=== PATIENT | female | born 1980 | race Caucasian/White ===

== ENCOUNTER 2023-01-02 11:03 | Outpatient (OUT) | payer BC, SELFPAY ==
[2023-01-02 11:38] LABS: Basophils Absolute Auto 0.1 10^3/uL (0.0-0.1); Basophils Percent Auto 1.2 % (0.2-2.0); Eosinophils Absolute Auto 0.3 10^3/uL (0.0-0.7); Eosinophils Percent Auto 4.9 % (0.9-7.0); Hematocrit 42.9 % (36.0-48.0); Hemoglobin 13.9 g/dL (12.0-16.0); Immature Granulocytes Abs Auto 0.04 10^3/uL (0.00-0.03); Immature Granulocytes Pct Auto 0.7 % (0.0-0.5); Lymphocytes Absolute Auto 1.8 10^3/uL (1.2-3.8); Lymphocytes Percent Auto 30.4 % (20.5-60.0); Mean Corpuscular HGB Conc 32.4 g/dL (29.9-35.2); Mean Corpuscular Hemoglobin 29.6 pg (26.7-34.0); Mean Corpuscular Volume 91.3 fL (81.0-99.0); Mean Platelet Volume 10.2 fL (9.5-13.5); Monocytes Absolute Auto 0.5 10^3/uL (0.3-0.8); Monocytes Percent Auto 8.7 % (1.7-12.0); Neutrophils Absolute Auto 3.2 10^3/uL (1.4-6.5); Neutrophils Percent Auto 54.1 % (43.0-75.0); Platelet Count 199 10^3/uL (150-450); Red Cell Distribution Width 13.8 % (11.0-15.0); White Blood Count 5.9 10^3/uL (4.0-11.0)
[2023-01-02 11:46] LABS: Erythrocyte Sedimentation Rate 14 mm/hr (<=20)
[2023-01-02 11:59] LABS: Estimated Average Glucose 100 mg/dL; Glycohemoglobin A1C 5.1 % (4.5-6.2)
[2023-01-02 12:08] LABS: Alanine Aminotransferase 23 U/L (14-59); Albumin Globulin Ratio 1.1; Albumin Level 3.8 g/dL (3.4-5.0); Alkaline Phosphatase 55 U/L (46-116); Amylase 234 U/L (25-115); Anion Gap 12.4; Aspartate Amino Transferase 9 U/L (15-37); Bilirubin Direct 0.1 mg/dL (0.0-0.2); Bilirubin Total 0.4 mg/dL (0.2-1.0); Carbon Dioxide 25.9 mmol/L (21.0-32.0); Chloride 107 mmol/L (98-107); Estimated GFR (African America >60 (>=60); Estimated GFR (Non-African Ame >60 (>=60); Globulin 3.5 g/dL; Potassium 4.3 mmol/L (3.5-5.1); Sodium 141 mmol/L (136-145); Thyroid Stimulating Hormone 1.609 uIU/mL (0.358-3.740); Total Protein 7.3 g/dL (6.4-8.2)
== END 2023-01-02 11:04 | disposition home or self-care (01) ==
PROVIDERS: PCP Internal Medicine
DX: Z79.899 Other long term (current) drug therapy (principal); R10.0 Acute abdomen
CPT/HCPCS: 36415; 80051; 80076; 82150; 82565; 83036; 84443; 84520; 85025; 85652

== ENCOUNTER 2023-01-27 13:46 | Outpatient (OUT) | payer BC, SELFPAY | END 2023-01-27 13:47 | disposition home or self-care (01) | LOC: PST 13:46 | PROVIDERS: PCP Internal Medicine; Visit Provider Surgery | DX: Z01.818 Encounter for other preprocedural examination (principal); K80.80 Other cholelithiasis without obstruction ==

== ENCOUNTER 2023-02-05 08:08 | Day surgery (SDC) | payer BC, SELFPAY ==
[2023-01-27 14:46] VITALS: BP 115/75; PULSE 73; RESP 20; TEMP 36.4; O2SAT 98; BMI 29.4
[2023-02-05] VITALS (15 sets, daily range): BP systolic 104–135; BP diastolic 62–83; PULSE 68–100; RESP 14–17; TEMP 36.2–36.8; O2SAT 96–100; BMI 29.4
[2023-02-05] MEDS: LACTATED RINGER'S SOLUTION 1,000 ML 50 ML IV ×2 (08:43→10:47)
[2023-02-05] MEDS: INDOCYANINE GREEN 25 MG VIAL INJ (08:43)
[2023-02-05] MEDS: MIDAZOLAM HCL 2 MG/2 ML VIAL IV (09:37)
[2023-02-05] MEDS: CEFAZOLIN SODIUM/DEXTROSE,ISO 2 GM/50 ML PIGGYBACK IV (09:59)
[2023-02-05] MEDS: BUPIVACAINE HCL 0.5% PF 50 MG/10 ML VIAL 20 ML INJ (10:48)
[2023-02-05] MEDS: PROMETHAZINE HCL 25 MG/ML VIAL 12.5 MG IV (11:27)
--- NOTE | 2023-02-05 11:30 | PM.GSPRC ---
Date of procedure: 02/05/23 Indications for Procedure: This patient is a 42-year-old female who was recently seen for episodes of right upper quadrant pain. Gallbladder ultrasound revealed cholelithiasis. Robotic cholecystectomy was recommended. The risks benefits options and potential complications of the procedure were discussed in detail with the patient and they agreed to proceed and consent was signed. Pre-op diagnosis: symptomatic cholelithiasis Post-op diagnosis: same as pre-op Procedure: robotic cholecystectomy with ICG cholangiogram Anesthesia: GETA Surgeon: William Juarez Procedure Summary: The patient was brought to the operating room placed in the supine position. Gen. anesthesia was induced and the patient was intubated. The abdomen was prepped and draped in usual sterile fashion. She had been given preoperative IV antibiotics and was also given preoperative ICG. A site in the left upper quadrant was infiltrated with half percent Marcaine with epinephrine. A small incision was made. A 12 mm port was placed through this incision and advanced into the peritoneal cavity under laparoscopic guidance. The abdomen was then insufflated to 15 mmHg of carbon dioxide. The camera was reintroduced and safe port site entry was confirmed. Three 8 mm robotic ports were then placed, one at the umbilicus and two in the right lateral abdomen following local anesthesia under direct visualization. The camera was removed and an additional 8 mm port was placed through the 12 mm port. the patient was then placed in reverse Trendelenburg position and banked to the left. At this time the da Conrad XI was brought to the field and camera was introduced and all ports direct and instruments introduced in standard fashion.at this time I left the operating table and attended the surgeon consult. The fundus of the gallbladder is grasped and retracted cephalad. The region of Brown's pouch was grasped and retracted laterally. Dissection was not carried out in the region of the triangle of Calot. The cystic duct was readily identified. This was confirmed with a sql programmer analyst. This was then divided between clips. Posterior to this the cystic artery was identified. This was divided after clip placement. The gallbladder was then taken off the liver using electrocautery. Excellent hemostasis and secured clip placement was noted. The gallbladder was then placed in a retrieval bag. This was brought out through the 12 mm port site intact. Instruments, camera and ports were subsequently removed and the abdomen was desufflated. Skin incisions were closed with subcuticular sutures of 4-0 Vicryl. Sterile dressings were applied. The patient tolerated the procedure well and was transferred to the recovery area in stable condition. Estimated blood loss (mL): 2 Specimens: gallbladder Complications: No
[2023-02-05] MEDS: HYDROMORPHONE HCL 0.5 MG/0.5 ML SYRINGE 0.4 MG IV ×2 (11:37→11:52)
[2023-02-05] MEDS: ONDANSETRON PF 4 MG/2 ML VIAL IV (11:52)
== END 2023-02-05 13:05 | disposition home or self-care (01) ==
PROVIDERS: PCP Internal Medicine; Visit Provider Surgery
PROC: (CPT 47563; principal; 2023-02-05 09:20)
DX: K80.20 Calculus of gallbladder without cholecystitis without obstruction (principal); Z79.899 Other long term (current) drug therapy; E78.00 Pure hypercholesterolemia, unspecified
CPT/HCPCS: 47563; 88304; J1170; J2704

== ENCOUNTER 2023-05-18 10:30 | Outpatient (OUT) | payer BC, SELFPAY ==
--- NOTE | 2023-05-18 11:17 | MM_ITS ---
Patient Name: GARRY GRIGSBY MR#: [id number] : 1980 Exam Date: 05/18/2023 Ordering Doctor: SUZANNA Nicholas . RADIOLOGY REPORT PROCEDURE: MM TOMOSYNTHESIS SCREENING BI COMPARISON: MG MAMM SCREEN 3D MATTEO CAD, 05/06/2022. MG MAMM SCREEN 3D [place] CAD, 05/01/2021. MG MAMM SCREEN MATTEO W CAD, 08/19/2018. INDICATIONS: screening Calculator Name NCI Breast Cancer Risk Assessment Tool 5 Year Breast Cancer Risk 1.30% Lifetime Breast Cancer Risk 12.90% Personal Breast Cancer No Personal Ovarian Cancer No Treatments None Family Cancers Grandmother-maternal with breast cancer at age ~60. LOCATION: [facility] BREAST COMPOSITION: Heterogeneously dense,which may obscure small masses. FINDINGS: DIAGNOSTIC CATEGORY 2--BENIGN FINDING: RIGHT BREAST: No significant suspicious finding. Scattered benign-appearing nodules are present. No significant change has occurred. LEFT BREAST: No significant suspicious finding. Scattered benign-appearing nodules are present. No significant change has occurred. RECOMMENDATIONS: ROUTINE MAMMOGRAM AND CLINICAL EVALUATION IN 12 MONTHS. PLEASE NOTE: A NORMAL MAMMOGRAM DOES NOT EXCLUDE THE POSSIBILITY OF BREAST CANCER. A CLINICALLY SUSPICIOUS PALPABLE LUMP SHOULD BE BIOPSIED. Dictated by: Abdiel Lin M.D. on 05/19/2023 at 13:11 Approved by: Abdiel Lin M.D. on 05/19/2023 at 13:26
== END 2023-05-18 10:31 | disposition home or self-care (01) ==
LOC: MAMMO 10:30
PROVIDERS: PCP Internal Medicine; Visit Provider Physician Assistant
DX: Z12.31 Encounter for screening mammogram for malignant neoplasm of breast (principal); Z80.3 Family history of malignant neoplasm of breast
CPT/HCPCS: 77063; 77067

== ENCOUNTER 2023-06-09 21:24 | Outpatient (REF) | payer BC, SELFPAY ==
--- OUTSIDE RECORDS SUMMARY | 2023-06-09 21:28 | XMS_ITS | CCD ---
Author Name Unknown Address [address] [place] [address] Organization [facility] Care Team Providers Care Tomato Paste Maker Name Role Phone MD Emmanuel Laughlin Attending Provider NO FAMILY, PHYSICIAN Primary Care Provider Unava ilable JR Monroe Whitaker Primary Care Provider [phone] OTILIA, DR NATARAJAN Attending Unavailable KARASIK, DR NATARAJAN Consulting Unavailable VALONE, DR JOHNSON Primary Care Unavailable KARASIK, DR NATARAJAN Admitting Unavailable KARASIK, DR NATARAJAN Admitting Unavailable KARASIK, DR NATARAJAN Attending Unavailable KARASIK, DR NATARAJAN Consulting Unavailable VALONE, DR JOHNSON Primary Care Unavailable ZIEBER, DR ABDIEL Reynoso Consulting Unavailable VALONE, DR JOHNSON Admitting Unavailable VALONE, DR JOHNSON Attending Unavailable VALONE, DR JOHNSON Consulting Unavailable VALONE, DR JOHNSON Primary Care Unavailable ANNE MARIE, NIKKI Admitting Unavailable ANNE MARIE, NIKKI Attending Unavailable VALONE, DR JOHNSON Primary Care Unavailable ZIEBER, DR ABDIEL Reynoso Consulting Unavailable ANNE MARIE, NIKKI Consulting Unavailable VALISAI, MONROE Referring Unavailable NILPercy, Bobby Reynoso Attending Unavailable Rolf, JR Monroe Greer Primary Care Provider [phone] MD Damir Laughlin Attending Provider Monroe Whitaker Primary Care Unavailable Damir Laughlin Attending Unavailable Qian, Damir Admitting Unavailable Allergies Allergy Classification Reported Allergen(s) Allergy Type Date of Onset Reaction(s) Facility (1 source) No Known Medication Allergies; Translations: [No Known Medication Allergies] Propensity to adverse reactions (disorder) [facility] Repository Problems Active Problems Problem Classification Problem Date Documented Date Episodic/Chronic Diabetes mellitus without complication (1 source) Other abnormal glucose; Translations: [OTHER ABNORMAL GLUCOSE] Onset: 2 Episodic Disorders of lipid metabolism (1 source) Pure hypercholesterolemia, unspecified; Translations: [PURE HYPERCHOLESTEROLEMIA UNSPEC] Onset: 2 Chronic Headache; including migraine (4 sources) Migraine, unspecified, not intractable, without status migrainosus; Translations: [MIGRAINE UNS NOT INTRACT W/O SM] Onset: 2 Chronic Immunizations and screening for infectious disease (1 source) Encounter for screening for human papillomavirus (HPV); Translations: [ENC SCREENING HUMAN PAPILLOMAVIRUS] Onset: 2 Episodic Osteoarthritis (1 source) Primary generalized (osteo)arthritis; Translations: [Primary generalized (osteo)arthritis] Onset: 3 Chronic Other aftercare (1 source) Other retirement (current) drug therapy; Translations: [OTH SKILLED NURSING CURRENT DRUG THERAPY] Onset: 2 Episodic Other connective tissue disease (1 source) Myalgia, unspecified site; Translations: [MYALGIA UNSPECIFIED SITE] Onset: 2 Episodic Other screening for suspected conditions (not mental disorders or infectious disease) (8 sources) Encounter for screening mammogram for malignant neoplasm of breast; Translations: [Encounter for screening for malignant neoplasm of cervix] Onset: 2 Episodic Residual codes; unclassified (1 source) Family history of malignant neoplasm of breast; Translations: [FAMILY HX MALIG NEOPLASM OF BREAST] Onset: 2 Episodic Past or Other Problems Problem Classification Problem Date Documented Da te Episodic/Chronic Other nervous system disorders (1 source) Personal history of other diseases of the nervous system and sense organs; Translations: [PERSONAL HX OTH DZ NS AND SENSE ORGANS] Onset: 12-10-2021 Episodic Results Test Name Value Interpretation Reference Range Facility Alanine aminotransferase [En zymatic activity/volume] in Serum or PlasmaOrdered By: Damir Laughlin on 01-18-2023 ALT [Catalytic activity/Vol] 24 U/L 7-52 [facility] Albumin [Mass/volume] in Ser um or Plasma by Bromocresol green (BCG) dye binding methoOrdered By: Damir Laughlin on 01-18-2023 Albumin BCG dye [Mass/Vol] 4.3 g/dL 3.5-5.7 [facility] Alkaline phosphatase [Enzyma tic activity/volume] in Serum or PlasmaOrdered By: Damir Laughlin on 01-18-2023 ALP [Catalytic activity/Vol] 40 U/L 34-104 [facility] Aspartate aminotransferase [ Enzymatic activity/volume] in Serum or PlasmaOrdered By: Damirclaudine Laughlin on 01-18-2023 AST [Catalytic activity/Vol] 18 U/L 13-39 [facility] Basophils Auto (Bld) [#/Vol] Ordered By: Damir Laughlin on 01-18-2023 Basophils (Bld) [#/Vol] 0.1 10*3/uL 0.0-0.2 [facility] Basophils/100 WBC Auto (Bld) Ordered By: Damir Laughlin on 01-18-2023 Basophils/100 WBC (Bld) 1.0 % . [facility] Bilirubin.total [Mass/volume ] in Serum or PlasmaOrdered By: Damir Laughlin on 01-18-2023 Bilirubin [Mass/Vol] 0.5 mg/dL 0.3-1.0 [facility] Calcium [Mass/volume] in Ser um or PlasmaOrdered By: Damir Laughlin on 01-18-2023 Calcium [Mass/Vol] 9.3 mg/dL 8.6-10.3 [facility] Carbon dioxide, total [Moles /volume] in Serum or PlasmaOrdered By: Damir Laughlin on 01-18-2023 CO2 [Moles/Vol] 29.7 mmol/L 21.0-31.0 [facility] Chloride [Moles/volume] in S derrick or PlasmaOrdered By: Damir Laughlin on 01-18-2023 Chloride [Moles/Vol] 108 mmol/L 98-107 [facility] Complete Blood Count Auto Di ffon 01-18-2023 Basophils (Bld) [#/Vol] 0.1 10*3/uL Normal 0.0-0.2 [facility] Comment on above: Result Comment: PERF ORMED BY: [facility] [address] [place] [address] PATHOLOGIST CARDIOLOGY CLINICAL NURSE SPECIALIST SP WALTERS M.D. Performed By: #### C MP, CBC #### [facility] [address] [place] [address] [place] Basophils/100 WBC (Bld) 1.0 % Normal . [facility] Comment on above: Performed By: #### C MP, CBC #### [facility] [address] [place] [address] [place] Eosinophils (Bld) [#/Vol] 0.6 10*3/uL High 0.0-0.45 [facility] Comment on above: Performed By: #### C MP, CBC #### [facility] [address] Eosinophils/100 WBC (Bld) 8.3 % Normal . [facility] Comment on above: Performed By: #### C MP, CBC #### [address] Erythrocyte distribution width (RBC) [Ratio] 14.5 % Normal 11.9-15.3 [facility] Comment on above: Performed By: #### C MP, CBC #### [address] Hematocrit (Bld) [Volume fraction] 44.6 % Normal 34.0-46.4 [facility] Comment on above: Performed By: #### C MP, CBC #### [address] Hemoglobin (Bld) [Mass/Vol] 14.7 g/dL Normal 11.8-15.4 [facility] Comment on above: Performed By: #### C MP, CBC #### [place] [address] [place] Lymphocytes (Bld) [#/Vol] 2.5 10*3/uL Normal 1.00-4.8 [facility] Comment on above: Performed By: #### C MP, CBC #### [place] [address] [place] Lymphocytes/100 WBC (Bld) 36.0 % Normal . [facility] Comment on above: Performed By: #### C MP, CBC #### [address] MCH (RBC) [Entitic mass] 30.2 pg Normal 24.7-34.3 [facility] Comment on above: Performed By: #### C MP, CBC #### [facility] [address] MCV (RBC) [Entitic vol] 91.9 fL Normal 80-100 [facility] Comment on above: Performed By: #### C MP, CBC #### [facility] [address] Mean Corpuscular HGB Conc 32.9 g/dL Normal 32.0-35.0 [facility] Comment on above: Performed By: #### C MP, CBC #### [facility] [address] Monocytes (Bld) [#/Vol] 0.6 10*3/uL Normal 0.0-0.8 [facility] Comment on above: Performed By: #### C MP, CBC #### [facility] [address] Monocytes/100 WBC (Bld) 9.0 % Normal . [facility] Comment on above: Performed By: #### C MP, CBC #### [facility] [address] [place] [address] [place] Neutrophils (Bld) [#/Vol] 3.1 10*3/uL Normal 1.8-7.7 [facility] Comment on above: Performed By: #### C MP, CBC #### [facility] [address] [place] [address] [place] Neutrophils/100 WBC (Bld) 45.7 % Normal . [facility] Comment on above: Performed By: #### C MP, CBC #### [facility] [address] [place] [address] [place] NRBC% 0.1 /100{WBC} Normal 0-0.5 [facility] Comment on above: Performed By: #### C MP, CBC #### [address] Platelet mean volume (Bld) [Entitic vol] 9.0 fL Normal 6.3-10.7 [facility] Comment on above: Performed By: #### C MP, CBC #### [address] Platelets (Bld) [#/Vol] 226 10*3/uL Normal 150-450 [facility] Comment on above: Performed By: #### C MP, CBC #### [address] RBC (Bld) [#/Vol] 4.86 10*6/uL Normal 3.60-5.00 [facility] Comment on above: Performed By: #### C MP, CBC #### [address] WBC (Bld) [#/Vol] 6.9 10*3/uL Normal 3.8-11.6 [facility] Comment on above: Performed By: #### C MP, CBC #### [address] Comprehensive Metabolic Pane yrn 01-18-2023 Albumin [Mass/Vol] 4.3 g/dL Normal 3.5-5.7 [facility] Comment on above: Performed By: #### C MP, CBC #### [address] Albumin/Globulin [Mass ratio] 1.8 {ratio} Normal [facility] Comment on above: Performed By: #### C MP, CBC #### [address] ALP [Catalytic activity/Vol] 40 U/L Normal 34-104 [facility] Comment on above: Result Comment: PERF ORMED BY: [place] [address] PATHOLOGIST CARDIOLOGY CLINICAL NURSE SPECIALIST SP WALTERS M.D. Performed By: #### C MP, CBC #### [address] ALT [Catalytic activity/Vol] 24 U/L Normal 7-52 [facility] Comment on above: Performed By: #### C MP, CBC #### [facility] [address] Anion gap [Moles/Vol] 9.7 mmol/L Normal 6.0-15.0 [facility] Comment on above: Performed By: #### C MP, CBC #### [facility] [address] AST [Catalytic activity/Vol] 18 U/L Normal 13-39 [facility] Comment on above: Performed By: #### C MP, CBC #### [facility] [address] Bilirubin [Mass/Vol] 0.5 mg/dL Normal 0.3-1.0 [facility] Comment on above: Performed By: #### C MP, CBC #### [facility] [address] Calcium [Mass/Vol] 9.3 mg/dL Normal 8.6-10.3 [facility] Comment on above: Performed By: #### C MP, CBC #### [facility] [address] [place] [address] [place] Chloride [Moles/Vol] 108 mmol/L High 98-107 [facility] Comment on above: Performed By: #### C MP, CBC #### [facility] [address] CO2 [Moles/Vol] 29.7 mmol/L Normal 21.0-31.0 [facility] Comment on above: Performed By: #### C MP, CBC #### [facility] [address] [place] [address] [place] Creatinine [Mass/Vol] 0.89 mg/dL Normal 0.60-1.20 [facility] Comment on above: Performed By: #### C MP, CBC #### [facility] [address] [place] [address] [place] GFR/1.73 sq M.predicted MDRD (S/P/Bld) [Vol rate/Area] mL/min/{1.73_m2} Normal [facility] Comment on above: Performed By: #### C MP, CBC #### [facility] [address] Globulin (S) [Mass/Vol] 2.4 g/dL Normal [facility] Comment on above: Performed By: #### C MP, CBC #### [address] Glucose [Mass/Vol] 85 mg/dL Normal 70-100 [facility] Comment on above: Result Comment: [facility] Glucose Reference Range is dependent on time and content of last meal. Glucose of more than 200 mg/dL in a nonstressed, ambulatory subject supports the diagnosis of Diabetes Mellitus. ADA recommended reference range Performed By: #### C MP, CBC #### [address] Potassium [Moles/Vol] 4.4 mmol/L Normal 3.5-5.1 [facility] Comment on above: Performed By: #### C MP, CBC #### [address] Protein [Mass/Vol] 6.7 g/dL Normal 6.4-8.9 [facility] Comment on above: Performed By: #### C MP, CBC #### [address] Sodium [Moles/Vol] 143 mmol/L Normal 136-145 [facility] Comment on above: Performed By: #### C MP, CBC #### [address] Urea nitrogen [Mass/Vol] 19 mg/dL Normal 7-25 [facility] Comment on above: Performed By: #### C MP, CBC #### [place] [address] [place] Creatinine [Mass/volume] in Serum or PlasmaOrdered By: Damir Laughlin on 01-18-2023 Creatinine [Mass/Vol] 0.89 mg/dL 0.60-1.20 [facility] Eosinophils Auto (Bld) [#/Vo l]Ordered By: Damir Laughlin on 01-18-2023 Eosinophils (Bld) [#/Vol] 0.6 10*3/uL 0.0-0.45 [facility] Eosinophils/100 WBC Auto (Bl d)Ordered By: Damir Laughlin on 01-18-2023 Eosinophils/100 WBC (Bld) 8.3 % . [facility] Erythrocyte distribution wid th Auto (RBC) [Ratio]Ordered By: Damir Laughlin on 01-18-2023 Erythrocyte distribution width (RBC) [Ratio] 14.5 % 11.9-15.3 [facility] Globulin Calc (S) [Mass/Vol] Ordered By: Damir Laughlin on 01-18-2023 Globulin (S) [Mass/Vol] 2.4 g/dL [facility] Glucose [Mass/volume] in Ser um or PlasmaOrdered By: Damir Laughlin on 01-18-2023 Glucose [Mass/Vol] 85 mg/dL 70-100 [facility] Comment on above: ADA recommended refe rence rangeRandom Glucose Reference Range is dependent on time and content of last meal. Glucose of more than 200 mg/dL in a nonstressed, ambulatory subject supports the diagnosis of Diabetes Mellitus. Hematocrit Auto (Bld) [Volum e fraction]Ordered By: Damir Laughlin on 01-18-2023 Hematocrit (Bld) [Volume fraction] 44.6 % 34.0-46.4 [facility] Hemoglobin [Mass/volume] in BloodOrdered By: Damir Laughlin on 01-18-2023 Hemoglobin (Bld) [Mass/Vol] 14.7 g/dL 11.8-15.4 [facility] Leukocytes [#/volume] correc nicki for nucleated erythrocytes in Blood by Automated counOrdered By: Damir Laughlin on 01-18-2023 WBC corrected for nucl RBC Auto (Bld) [#/Vol] 6.9 10*3/uL 3.8-11.6 [facility] Lymphocytes Auto (Bld) [#/Vo l]Ordered By: Damir Laughlin on 01-18-2023 Lymphocytes (Bld) [#/Vol] 2.5 10*3/uL 1.00-4.8 [facility] Lymphocytes/100 WBC Auto (Bl d)Ordered By: Damir Laughlin on 01-18-2023 Lymphocytes/100 WBC (Bld) 36.0 % . [facility] MCH Auto (RBC) [Entitic mass ]Ordered By: Damir Laughlin on 01-18-2023 MCH (RBC) [Entitic mass] 30.2 pg 24.7-34.3 [facility] MCHC Auto (RBC) [Mass/Vol]Or dered By: Damir Laughlin on 01-18-2023 MCHC (RBC) [Mass/Vol] 32.9 g/dL 32.0-35.0 [facility] MCV Auto (RBC) [Entitic vol] Ordered By: Damir Laughlin on 01-18-2023 MCV (RBC) [Entitic vol] 91.9 fL 80-100 [facility] Monocytes Auto (Bld) [#/Vol] Ordered By: Damir Laughlin on 01-18-2023 Monocytes (Bld) [#/Vol] 0.6 10*3/uL 0.0-0.8 [facility] Monocytes/100 WBC Auto (Bld) Ordered By: Damir Laughlin on 01-18-2023 Monocytes/100 WBC (Bld) 9.0 % . [facility] Neutrophils Auto (Bld) [#/Vo l]Ordered By: Damir Laughlin on 01-18-2023 Neutrophils (Bld) [#/Vol] 3.1 10*3/uL 1.8-7.7 [facility] Neutrophils/100 WBC Auto (Bl d)Ordered By: Damir Laughlin on 01-18-2023 Neutrophils/100 WBC (Bld) 45.7 % . [facility] No Panel InformationOrdered By: Damir Laughlin on 01-18-2023 Estimated GFR (CKD-EPI) > 60.0 mL/Min [facility] Creatinine Clearance (Chem N/A [facility] Nucleated erythrocytes [Pres ence] in Blood by Automated countOrdered By: Damir Laughlin on 01-18-2023 Nucleated RBC Auto Ql (Bld) 0.1 /100{WBC} 0-0.5 [facility] Platelet mean volume Auto (B ld) [Entitic vol]Ordered By: Damir Laughlin on 01-18-2023 Platelet mean volume (Bld) [Entitic vol] 9.0 fL 6.3-10.7 [facility] Platelets Auto (Bld) [#/Vol] Ordered By: Damir Laughlin on 01-18-2023 Platelets (Bld) [#/Vol] 226 10*3/uL 150-450 [facility] Potassium [Moles/volume] in Serum or PlasmaOrdered By: Damir Laughlin on 01-18-2023 Potassium [Moles/Vol] 4.4 mmol/L 3.5-5.1 [facility] Protein [Mass/volume] in Ser um or PlasmaOrdered By: Damir Laughlin on 01-18-2023 Protein [Mass/Vol] 6.7 g/dL 6.4-8.9 [facility] RBC Auto (Bld) [#/Vol]Ordere d By: Damir Laughlin on 01-18-2023 RBC (Bld) [#/Vol] 4.86 10*6/uL 3.60-5.00 [facility] Serum or plasma albumin/glob ulin mass ratioOrdered By: Damir Laughlin on 01-18-2023 Albumin/Globulin [Mass ratio] 1.8 {ratio} [facility] Serum or plasma anion gap de terminationOrdered By: Damir Laughlin on 01-18-2023 Anion gap [Moles/Vol] 9.7 mmol/L 6.0-15.0 [facility] Sodium [Moles/volume] in Ser um or PlasmaOrdered By: Damir Laughlin on 01-18-2023 Sodium [Moles/Vol] 143 mmol/L 136-145 [facility] Urea nitrogen [Mass/volume] in Serum or PlasmaOrdered By: Damir Laughlin on 01-18-2023 Urea nitrogen [Mass/Vol] 19 mg/dL 7-25 [facility] WBC Auto (Bld) [#/Vol]Ordere d By: Damir Laughlin on 01-18-2023 WBC (Bld) [#/Vol] 6.9 10*3/uL 3.8-11.6 [facility] Physician Referralon 023 Physician Referral [id number] #[id number]:127 Normal [facility] Physician Referralon 023 Physician Referral [id number] #1.00CD:127 Normal [facility] PAP ACOG PANEL 2: 30 to 65on 05-08-2022 . . Normal [facility] Comment on above: Result Comment: Perf ormed at: WB Performed By: #### [id number] ####[facility] [id number] [place] [address] [id number]. Tahir Barragan Age Gdln ACOG Testing 30-[address] [facility] Comment on above: Performed By: #### [id number] ####[facility] [address] [place] [address] [address]Dr. Tahir Barragan DIAGNOSIS: Comment Normal [facility] Comment on above: Result Comment: UNSA TISFACTORY FOR EVALUATION. Performed at: WB Performed By: #### [id number] ####[facility] [id number] [place] [address] [address]Dr. Tahir Barragan HPV Aptima Negative Normal Negative [facility] Comment on above: Result Comment: This nucleic acid amplification test detects fourteen high-risk HPV types (16,18,31,33,35,39,45,51,52,56,58,59,66,68) without differentiation. Performed at: =G Performed By: #### [id number] ####[facility] [address] [place] [address]DrWilber Barragan HPV Genotype Reflex Comment Normal [facility] Comment on above: Result Comment: Crit eria not met, HPV Genotype not performed. Performed at: WB Performed By: #### [id number] ####[facility] [address] [place] [address]DrWilber Barragan Methodology: Comment Normal [facility] Comment on above: Result Comment: This liquid based ThinPrep(R) pap test was screened with the use of an image guided system. Performed at: WB Performed By: #### [id number] ####[facility] [id number] [place] [address] [address]Dr. Tahir Barragan Note: Comment Normal [facility] Comment on above: Result Comment: The Pap smear is a screening test designed to aid in the detection of premalignant and malignant conditions of the uterine cervix. It is not a diagnostic procedure and should not be used as the sole means of detecting cervical cancer. Both false-positive and false-negative reports do occur. . Performed at: WB Performed By: #### [id number] ####[facility] [address] [place] [address]Dr. Tahir Barragan Performed by: Comment Normal [facility] Comment on above: Result Comment: Fercho Gonzalez, Brand Manager (ASCP) Performed at: WB Performed By: #### [id number] ####[facility] [address] [place], [place] [address]Dr. Tahir Barragan QC reviewed by: Comment Normal [facility] Comment on above: Result Comment: Jesenia Gómez, Supervisory Brand Manager (ASCP) Performed at: WB Performed By: #### [id number] ####[facility] [address] [place], [place] [address]Dr. Tahir Barragan Recommendation: Comment Normal [facility] Comment on above: Result Comment: Sugg est follow up as clinically appropriate. Performed at: WB Performed By: #### [id number] ####[facility] [address] [place], [place] [address]Dr. Tahir Barragan Specimen adequacy: Comment Normal [facility] Comment on above: Result Comment: Spec imen processed and examined but unsatisfactory for evaluation of epithelial abnormality because of insufficient cellularity. Performed at: WB Performed By: #### [id number] ####[facility] [address] [place], [place] [address]Dr. Tahir Barragan MG MAMM SCREEN 3D MATTEO CADon 05-06-2022 MG MAMM SCREEN 3D MATTEO CAD Patient: SHAWNA GRIGSBY Exam Date: 05/06/2022 : 1980 Gender:F Ordering : DR DELGADO BINGHAM . Admission #: [id number] Family : Order #: [id number] CLICK HERE TO VIEW EXAM RADIOLOGY REPORT PROCEDURE: MAMMOGRAM SCREENING 3D BILATERAL CAD COMPARISON: MG MAMM SCREEN 3D MATTEO CAD, 05/01/2021. MG MAMM MATTEO DIAG W CAD, 03/04/2020. INDICATIONS: Screening mammography Calculator Name NCI Breast Cancer Risk Assessment Tool 5 Year Breast Cancer Risk 1.30% Lifetime Breast Cancer Risk 13.00% Personal Breast Cancer No Personal Ovarian Cancer No Treatments None Family Cancers Grandmother-maternal with breast cancer at age 60. LOCATION: [facility] BREAST COMPOSITION: Heterogeneously dense,which may obscure small masses. FINDINGS: DIAGNOSTIC CATEGORY 2--BENIGN FINDING: RIGHT BREAST: No significant suspicious finding. Scattered benign-appearing nodules are present. No significant change has occurred. LEFT BREAST: No significant suspicious finding. Scattered benign-appearing nodules are present. No significant change has occurred. RECOMMENDATIONS: ROUTINE MAMMOGRAM AND CLINICAL EVALUATION IN 12 MONTHS. PLEASE NOTE: A NORMAL MAMMOGRAM DOES NOT EXCLUDE THE POSSIBILITY OF BREAST CANCER. A CLINICALLY SUSPICIOUS PALPABLE LUMP SHOULD BE BIOPSIED. Dictated by: Abdiel Lin M.D. on 05/06/2022 at 14:57 Approved by: Abdiel Lin M.D. on 05/06/2022 at 15:03 Normal [facility] BUNon 04-03-2022 Urea nitrogen [Mass/Vol] 17.0 mg/dL Normal 7.0-18.[address] [facility] Comment on above: Performed By: #### C LINDA, LIPID, BUN, TSH, ELEC, LIVER #### [facility] [address] [address] [address] Tahir Barragan CBC AUTO DIFFon 04-03-2022 BASO # 0.1 103/ul Normal 0.0-0.[address] [facility] Comment on above: Performed By: #### C BC #### [facility] [address] [address] [address] Tahir Barragan Basophils/100 WBC (Bld) 1.2 % Normal 0.2-2.0 [facility] Comment on above: Performed By: #### C BC #### [facility] [address] [address] [address] Tahir Barragan EO # 0.3 103/ul Normal 0.0-0.[address] [facility] Comment on above: Performed By: #### C BC #### [facility] [address] [place] [address] Dr. Tahir Barragan Eosinophils/100 WBC (Bld) 4.8 % Normal 0.9-7.[address] [facility] Comment on above: Performed By: #### C BC #### [facility] [address] [place] [address] Dr. Tahir Barragan Erythrocyte distribution width (RBC) [Ratio] 14.0 % Normal 11.0-15.[address] [facility] Comment on above: Performed By: #### C BC #### [facility] [address] [place] [address] Dr. Tahir Barragan Hematocrit (Bld) [Volume fraction] 41.5 % Normal 36.0-48.[address] [facility] Comment on above: Performed By: #### C BC #### [facility] [address] [place] [address] Dr. Tahir Braragan Hemoglobin (Bld) [Mass/Vol] 13.8 g/dL Normal 12.0-16.[address] [facility] Comment on above: Performed By: #### C BC #### [facility] [address] [place] [address] Dr. Tahir Barragan IG # 0.04 10e3/ul Critically high 0.00-0.03 [facility] Comment on above: Performed By: #### C BC #### [facility] [address] [place] [address] Dr. Tahir Barragan IG % 0.7 % Critically high 0.0-0.5 [facility] Comment on above: Performed By: #### C BC #### [facility] [address] [place] [address] Dr. Tahir Barragan LYMPH # 2.1 103/ul Normal 1.2-3.[address] [facility] Comment on above: Performed By: #### C BC #### [facility] [address] [place] [address] Dr. Tahir Barragan Lymphocytes/100 WBC (Bld) 34.1 % Normal 20.5-60.[address] [facility] Comment on above: Performed By: #### C BC #### [facility] [address] [place] [address] Dr. Tahir Barragan MANUAL DIFF REQ NO Normal [facility] Comment on above: Performed By: #### C BC #### [facility] [address] [place] [address] Dr. Tahir Barragan MCH (RBC) [Entitic mass] 29.9 pg Normal 26.7-34.[address] [facility] Comment on above: Performed By: #### C BC #### [facility] [address] [place] [address] Dr. Tahir Barragan MCHC (RBC) [Mass/Vol] 33.3 g/dL Normal 29.9-35.[address] [facility] Comment on above: Performed By: #### C BC #### [facility] [address] [place] [address] Dr. Tahir Barragan MCV (RBC) [Entitic vol] 90.0 fL Normal 81.0-99.0 [facility] Comment on above: Performed By: #### C BC #### [facility] [address] [place] [address] Dr. Tahir Barragan MONO # 0.6 103/ul Normal 0.3-0.[address] [facility] Comment on above: Performed By: #### C BC #### [facility] [address] [place] [address] Dr. Tahir Barragan Monocytes/100 WBC (Bld) 9.4 % Normal 1.7-12.0 [facility] Comment on above: Performed By: #### C BC #### [facility] [address] [place] [address] Dr. Tahir Barragan NEUT # 3.0 103/ul Normal 1.4-6.[address] [facility] Comment on above: Performed By: #### C BC #### [facility] [address] [place] [address] Dr. Tahir Barragan Neutrophils/100 WBC (Bld) 49.8 % Normal 43.0-75.[address] [facility] Comment on above: Performed By: #### C BC #### [facility] [address] [address] [address] aThir Barragan Platelet mean volume (Bld) [Entitic vol] 10.6 fL Normal 9.5-13.[address] [facility] Comment on above: Performed By: #### C BC #### [facility] [address] [address] [address] Tahir Barragan PLT 251 103/ul Normal 150-450 [facility] Comment on above: Performed By: #### C BC #### [facility] [address] [address] [address] Tahir Barragan RBC 4.61 106/ul Normal 4.20-5.[address] [facility] Comment on above: Performed By: #### C BC #### [facility] [address] [address] [address] Taihr Barragan WBC 6.0 103/ul Normal 4.0-11.[address] [facility] Comment on above: Performed By: #### C BC #### [facility] [address] [address] [address] Tahir Barragan CREATININEon 04-03-2022 Creatinine [Mass/Vol] 0.68 mg/dL Normal 0.55-1.[address] [facility] Comment on above: Performed By: #### C LINDA, LIPID, BUN, TSH, ELEC, LIVER ####[facility] [id number] [address]DrWilber Barragan EGFR-AF SWEDISH >60 Normal >=60 [facility] Comment on above: Performed By: #### C LINDA, LIPID, BUN, TSH, ELEC, LIVER ####[facility] [id number] [id number] Barragan EGFR-NON AF SWEDISH >60 Normal >=[address] [facility] Comment on above: Performed By: #### C LINDA, LIPID, BUN, TSH, ELEC, LIVER ####[facility] [id number] [address]Dr. Tahir Barragan ELECTROLYTESon 04-03-2022 Anion gap [Moles/Vol] 9.2 mmol/L Normal [facility] Comment on above: Performed By: #### C LINDA, LIPID, BUN, TSH, ELEC, LIVER #### [facility] [address] [address] [address] Tahir Barragan Chloride [Moles/Vol] 105 mmol/L Normal 98-107 [facility] Comment on above: Performed By: #### C LINDA, LIPID, BUN, TSH, ELEC, LIVER #### [facility] [address] [place] [address] Dr. Tahir Barragan CO2 [Moles/Vol] 29.7 mmol/L Normal 21.0-32.0 [facility] Comment on above: Performed By: #### C LINDA, LIPID, BUN, TSH, ELEC, LIVER #### [facility] [address] [place] [address] Dr. Tahir Barragan Potassium [Moles/Vol] 3.9 mmol/L Normal 3.5-5.1 [facility] Comment on above: Performed By: #### C LINDA, LIPID, BUN, TSH, ELEC, LIVER #### [facility] [address] [address] [address] Tahir Barragan Sodium [Moles/Vol] 140 mmol/L Normal 136-145 [facility] Comment on above: Performed By: #### C LINDA, LIPID, BUN, TSH, ELEC, LIVER #### [facility] [address] [place] [address] Dr. Tahir Barragan GLYCOHEMOGLOBIN A1Con 2021 ADA RECOMMENDATION SEE BELOW Normal [facility] Comment on above: Result Comment: ADA RECOMMENDED LIMIT 4.0 - 6.0 ADA THERAPEUTIC TARGET < 7.0 ACTION SUGGESTED > 7.0 Performed By: #### A 1C #### [facility] [address] [place] [address] Dr. Tahir Barragan Glucose [Mass/Vol] 108 mg/dL Normal [facility] Comment on above: Performed By: #### A 1C #### [facility] [address] [place] [address] Dr. Tahir Barragan HbA1c (Bld) [Mass fraction] 5.4 % Normal 4.5-6.[address] [facility] Comment on above: Performed By: #### A 1C #### [facility] [address] [place] [address] Dr. Tahir Barragan LIPID PROFILEon 04-03-2022 CHOL-HDL RATIO NORM SEE BELOW Normal [facility] Comment on above: Result Comment: 3.3 - 4.4 LOW RISK 4.4 - 7.1 AVERAGE RISK 7.1 - 11.0 MODERATE RISK >11.0 HIGH RISK Performed By: #### C LINDA, LIPID, BUN, TSH, ELEC, LIVER #### [facility] [address] [place] [address] Dr. Tahir Barragan Cholesterol [Mass/Vol] 177 mg/dL Normal <=200 [facility] Comment on above: Performed By: #### C LINDA, LIPID, BUN, TSH, ELEC, LIVER #### [facility] [address] [place] [address] Dr. Tahir Barragan Cholesterol in HDL [Mass/Vol] 69 mg/dL Critically high 40-[address] [facility] Comment on above: Performed By: #### C LINDA, LIPID, BUN, TSH, ELEC, LIVER #### [facility] [address] [place] [address] Dr. Tahir Barragan Cholesterol in LDL [Mass/Vol] 100.0 mg/dL Normal [facility] Comment on above: Performed By: #### C LINDA, LIPID, BUN, TSH, ELEC, LIVER #### [facility] [address] [place] [address] Dr. Tahir Barragan Cholesterol.total/Choles terol in HDL [Mass ratio] 2.6 {ratio} Normal [facility] Comment on above: Performed By: #### C LINDA, LIPID, BUN, TSH, ELEC, LIVER #### [facility] [address] [place] [address] Dr. Tahir Barragan HDL NORMAL > or = 60 mg/dl - LOW CARDIOVASCULAR RISK <40 mg/dl - HIGH CARDIOVASCULAR RISK Normal [facility] Comment on above: Performed By: #### C LINDA, LIPID, BUN, TSH, ELEC, LIVER #### [facility] [address] [address] [address] Tahir Barragan LDL CALC NORMAL SEE BELOW Normal [facility] Comment on above: Result Comment: <100 mg/dl OPTIMAL 100 - 129 mg/dl NEAR OR ABOVE OPTIMAL 130 - 159 mg/dl BORDERLINE HIGH 160 - 189 mg/dl HIGH >190 mg/dl VERY HIGH Performed By: #### C LINDA, LIPID, BUN, TSH, ELEC, LIVER #### [facility] [address] [address] [address] Tahir Barragan Triglyceride [Mass/Vol] 40 mg/dL Normal <=150 T [facility] Comment on above: Performed By: #### C LINDA, LIPID, BUN, TSH, ELEC, LIVER #### [facility] [address] [address] [address] Tahir Barragan VLDL CALC 8.0 mg/dL Normal [facility] Comment on above: Performed By: #### C LINDA, LIPID, BUN, TSH, ELEC, LIVER #### [facility] [address] [address] [address] Tahir Barragan LIVER PROFILEon 04-03-2022 Albumin [Mass/Vol] 3.9 g/dL Normal 3.4-5.0 [facility] Comment on above: Performed By: #### C LINDA, LIPID, BUN, TSH, ELEC, LIVER #### [facility] [address] [address] [address] Tahir Barragan Albumin/Globulin [Mass ratio] 1.1 {ratio} Normal [facility] Comment on above: Performed By: #### C LINDA, LIPID, BUN, TSH, ELEC, LIVER #### [facility] [address] [address] [address] Tahir Barragan ALP [Catalytic activity/Vol] 78 U/L Normal 46-[address] [facility] Comment on above: Performed By: #### C LINDA, LIPID, BUN, TSH, ELEC, LIVER #### [facility] [address] [address] [address] Tahir Barragan ALT [Catalytic activity/Vol] 16 U/L Normal 14-[address] [facility] Comment on above: Performed By: #### C LINDA, LIPID, BUN, TSH, ELEC, LIVER #### [facility] [address] [address] [address] Tahir Barragan AST [Catalytic activity/Vol] 9 U/L Critically low 15-[address] [facility] Comment on above: Performed By: #### C LINDA, LIPID, BUN, TSH, ELEC, LIVER #### [facility] [address] [address] [address] Tahir Barragan BILI, CONJUGATED 0.1 mg/dL Normal 0.0-0.2 [facility] Comment on above: Performed By: #### C LINDA, LIPID, BUN, TSH, ELEC, LIVER #### [facility] [address] [place] [address] Dr. Tahir Barragan Bilirubin [Mass/Vol] 0.4 mg/dL Normal 0.2-1.[address] [facility] Comment on above: Performed By: #### C LINDA, LIPID, BUN, TSH, ELEC, LIVER #### [facility] [address] [place] [address] Dr. Tahir Barragan Globulin (S) [Mass/Vol] 3.5 g/dL Normal T [facility] Comment on above: Performed By: #### C LINDA, LIPID, BUN, TSH, ELEC, LIVER #### [facility] [address] [place] [address] Dr. Tahir Barragan Protein [Mass/Vol] 7.4 g/dL Normal 6.4-8.2 [facility] Comment on above: Performed By: #### C LINDA, LIPID, BUN, TSH, ELEC, LIVER #### [facility] [address] [address] [address] Tahir Barragan SED RATE [facility] 2021 SED RATE 24 mm/hr Critically high <=20 [facility] Comment on above: Performed By: #### S EDR #### [facility] [address] [place] [address] Dr. Tahir Barragan TSHon 04-03-2022 TSH 0.848 uIU/mL Normal 0.358-3.740 [facility] Comment on above: Performed By: #### C LINDA, LIPID, BUN, TSH, ELEC, LIVER #### [facility] [address] [address] [address] Tahir Barragan Activated partial thrombopla stin time (aPTT) in platelet poor plasma by coagulation aOrdered By: Damir Laughlin on 10-08-2021 aPTT Coag (PPP) [Time] 30.3 s 25.1-36.5 [facility] Automated epithelial cells c ount in urine sediment (number/area)Ordered By: Damir Laughlin on 10-08-2021 Epithelial cells Auto (Urine sed) [#/Area] None seen [HPF] [facility] Automated erythrocytes count in urine sediment (number/area)Ordered By: Damir Laughlin on 10-08-2021 RBC Auto (Urine sed) [#/Area] None seen [HPF] [facility] Automated leukocytes count i n urine sediment (number/area)Ordered By: Damir Laughlin on 10-08-2021 WBC Auto (Urine sed) [#/Area] None seen [HPF] [facility] Automated urine hyaline cast s count (number/volume)Ordered By: Damir Laughlin on 10-08-2021 Hyaline casts Auto (U) [#/Vol] None seen [LPF] [facility] Basophils Auto (Bld) [#/Vol] Ordered By: Damir Laughlin on 10-08-2021 Basophils (Bld) [#/Vol] 0.1 10*3/uL 0.0-0.2 [facility] Basophils/100 WBC Auto (Bld) Ordered By: Damir Laughlin on 10-08-2021 Basophils/100 WBC (Bld) 1.0 % [facility] Bilirubin Test strip Ql (U)O rdered By: Damir Laughlin on 10-08-2021 Bilirubin Ql (U) Negative Negative [facility] Blood hemoglobin measurement (mass/volume)Ordered By: Damir Laughlin on 10-08-2021 Hemoglobin (Bld) [Mass/Vol] 12.9 g/dL 11.8-15.4 [facility] Blood leukocytes automated c ount (number/volume)Ordered By: Damir Laughlin on 10-08-2021 WBC (Bld) [#/Vol] 7.1 10*3/uL 4.5-11.0 [facility] Body fluid albumin measureme nt (mass/volume)Ordered By: Monroe Whitaker on 10-08-2021 Albumin (Body fld) [Mass/Vol] 4.1 g/dL 3.2-5.5 [facility] Color Auto (U)Ordered By: Bebeto Laughlin on 10-08-2021 Color (U) Yellow Yellow [facility] Creatine kinase [Enzymatic a ctivity/volume] in Serum or PlasmaOrdered By: Monroe Whitaker on 10-08-2021 CK [Catalytic activity/Vol] 123 U/L 22-269 [facility] Creatinine and Glomerular fi ltration rate.predicted panel (S/P/Bld)Ordered By: Monroe Whitaker on 10-08-2021 Creatinine [Mass/Vol] 0.78 mg/dL 0.44-1.03 [facility] Eosinophils Auto (Bld) [#/Vo l]Ordered By: Damir Laughlin on 10-08-2021 Eosinophils (Bld) [#/Vol] 0.4 10*3/uL 0.0-0.45 [facility] Eosinophils/100 WBC Auto (Bl d)Ordered By: Damir Laughlin on 10-08-2021 Eosinophils/100 WBC (Bld) 5.1 % [facility] Erythrocyte distribution wid th Auto (RBC) [Ratio]Ordered By: Damir Laughlin on 10-08-2021 Erythrocyte distribution width (RBC) [Ratio] 15.0 % 11.9-15.3 [facility] Erythrocyte sedimentation ra te by Photometric methodOrdered By: Damir Laughlin on 10-08-2021 ESR Photometric method (Bld) [Velocity] 15 mm/hr 0-19 [facility] Estimated glomerular filtrat ion rate (GFR) non- AmericanOrdered By: Monroe Whitaker on 10-08-2021 GFR/1.73 sq M.predicted among non-blacks MDRD (S/P/Bld) [Vol rate/Area] > 60 mL/Min [facility] Globulin Calc (S) [Mass/Vol] Ordered By: Monroe Whitaker on 10-08-2021 Globulin (S) [Mass/Vol] 2.2 g/dL [facility] Glucose mean value [Mass/vol ume] in Blood Estimated from glycated hemoglobinOrdered By: Monroe Whitaker on 10-08-2021 Average glucose Estimated from glycated hemoglobin (Bld) [Mass/Vol] 108 mg/dL [facility] Hematocrit Auto (Bld) [Volum e fraction]Ordered By: Damir Laughlin on 10-08-2021 Hematocrit (Bld) [Volume fraction] 38.6 % 34.0-46.4 [facility] Hemoglobin A1c percentageOrd ered By: Monroe Whitaker on 10-08-2021 HbA1c (Bld) [Mass fraction] 5.4 % 4.3-5.6 [facility] Comment on above: Increased risk for d iabetes: 5.7 - 6.4 diabetes: >6.4 glycemic control for adults with diabetes: <7.0 Ketones Auto test strip (U) [Mass/Vol]Ordered By: Damir Laughlin on 10-08-2021 Ketones (U) [Mass/Vol] Negative Negative Fi [facility] - CoagulationOrde red By: Damir Laughlin on 10-08-2021 PT Coag (PPP) [Time] 11.7 s 9.0-12.9 [facility] - Hematology and Cell countsOrdered By: Damir Laughlin on 10-08-2021 Nucleated RBC/100 WBC (Bld) [Ratio] 0.0 % 0-0.5 [facility] Lymphocytes Auto (Bld) [#/Vo l]Ordered By: Damir Laughlin on 10-08-2021 Lymphocytes (Bld) [#/Vol] 2.2 10*3/uL 1.00-4.8 [facility] Lymphocytes/100 WBC Auto (Bl d)Ordered By: Damir Laughlin on 10-08-2021 Lymphocytes/100 WBC (Bld) 31.5 % [facility] MCH Auto (RBC) [Entitic mass ]Ordered By: Damir Laughlin on 10-08-2021 MCH (RBC) [Entitic mass] 30.2 pg 24.7-34.3 [facility] MCHC Auto (RBC) [Mass/Vol]Or dered By: Damir Laughlin on 10-08-2021 MCHC (RBC) [Mass/Vol] 33.3 g/dL 32.0-35.0 [facility] MCV Auto (RBC) [Entitic vol] Ordered By: Damir Laughlin on 10-08-2021 MCV (RBC) [Entitic vol] 90.7 fL 80-100 [facility] Monocytes Auto (Bld) [#/Vol] Ordered By: Damir Laughlin on 10-08-2021 Monocytes (Bld) [#/Vol] 0.5 10*3/uL 0.0-0.8 [facility] Monocytes/100 WBC Auto (Bld) Ordered By: Damir Laughlin on 10-08-2021 Monocytes/100 WBC (Bld) 7.5 % [facility] Neutrophils Auto (Bld) [#/Vo l]Ordered By: Damir Laughlin on 10-08-2021 Neutrophils (Bld) [#/Vol] 3.9 10*3/uL 1.8-7.7 [facility] Neutrophils/100 WBC Auto (Bl d)Ordered By: Damir Laughlin on 10-08-2021 Neutrophils/100 WBC (Bld) 54.9 % [facility] Nitrite Test strip Ql (U)Ord ered By: Damir Laughlin on 10-08-2021 Nitrite Ql (U) Negative Negative [facility] No Panel InformationOrdered By: Monroe Whitaker on 10-08-2021 Estimated GFR () > 60 mL/Min [facility] Comment on above: GFR estimated refere nce range: According to KDOQI guidelines, <60 ml/min/1.73m2 is sufficient to diagnose a patient with chronic kidney disease. Pharmacy Creatinine Clearance (Chem N/A [facility] Platelet mean volume Auto (B ld) [Entitic vol]Ordered By: Damir Laughlin on 10-08-2021 Platelet mean volume (Bld) [Entitic vol] 9.7 fL 6.3-10.7 [facility] Platelet poor plasma interna tional normalized ratio (INR) by coagulation assay (relatOrdered By: Damir Laughlin on 10-08-2021 INR Coag (PPP) [Relative time] 1.0 {INR} [facility] Comment on above: INR Therapeutic Rang e A) Pre- and Peroperative OAT started two weeks before surgery. NOT HIP SURGERY: 1.5 - 2.5 HIP SURGERY: 2 - 3 B) Primary and secondary prevention of venous THROMBOSIS: 2 - 3 C) Active venous thrombosis, pulmonary embolism and prevention of recurrent venous thrombosis: 2 - 3 D) Prevention of arterial thromboembolism including patients with mechanical heart valves: 3 - 4.5 Platelets Auto (Bld) [#/Vol] Ordered By: Damir Laughlin on 10-08-2021 Platelets (Bld) [#/Vol] 226 10*3/uL 150-450 [facility] Protein Auto test strip (U) [Mass/Vol]Ordered By: Damir Laughlin on 10-08-2021 Protein (U) [Mass/Vol] Negative Negative Fi [facility] Protein [Mass/volume] in Ser um or PlasmaOrdered By: Monroe Whitaker on 10-08-2021 Protein [Mass/Vol] 6.3 g/dL 6.1-7.9 [facility] RBC Auto (Bld) [#/Vol]Ordere d By: Damir Laughlin on 10-08-2021 RBC (Bld) [#/Vol] 4.25 10*6/uL 3.60-5.00 [facility] Serum or plasma C reactive p rotein measurement (mass/volume)Ordered By: Damir Laughlin on 10-08-2021 CRP [Mass/Vol] 0.5 mg/dL 0.0-1.0 [facility] Serum or plasma alanine rivera otransferase measurement without P-5'-P (enzymatic activiOrdered By: Monroe Whitaker on 10-08-2021 ALT No additional P-5'-P [Catalytic activity/Vol] 20 U/L 10-60 [facility] Serum or plasma albumin/glob ulin mass ratioOrdered By: Monroe Whitaker on 10-08-2021 Albumin/Globulin [Mass ratio] 1.9 {ratio} [facility] Serum or plasma alkaline marya sphatase measurement (enzymatic activity/volume)Ordered By: Monroe Whitaker on 10-08-2021 ALP [Catalytic activity/Vol] 48 U/L 32-92 [facility] Serum or plasma aspartate am inotransferase measurement (enzymatic activity/volume)Ordered By: Monroe Whitaker on 10-08-2021 AST [Catalytic activity/Vol] 17 U/L 10-42 [facility] Serum or plasma calcium marcy urement (mass/volume)Ordered By: Monroe Whitaker on 10-08-2021 Calcium [Mass/Vol] 9.2 mg/dL 8.2-10.2 [facility] Serum or plasma chloride fabiola surement (moles/volume)Ordered By: Monroe Whitaker on 10-08-2021 Chloride [Moles/Vol] 105 mmol/L 95-114 [facility] Serum or plasma glucose marcy urement (mass/volume)Ordered By: Monroe Whitaker on 10-08-2021 Glucose [Mass/Vol] 92 mg/dL 70-100 [facility] Comment on above: ADA recommended refe rence range Random Glucose Reference Range is dependent on time and content of last meal. Glucose of more than 200 mg/dL in a nonstressed, ambulatory subject supports the diagnosis of Diabetes Mellitus. Serum or plasma potassium me asurement (moles/volume)Ordered By: Monroe Whitaker on 10-08-2021 Potassium [Moles/Vol] 4.0 mmol/L 3.5-5.1 [facility] Serum or plasma sodium measu rement (moles/volume)Ordered By: Monroe Whitaker on 10-08-2021 Sodium [Moles/Vol] 138 mmol/L 136-146 [facility] Serum or plasma total biliru bin measurement (mass/volume)Ordered By: Monroe Whitaker on 10-08-2021 Bilirubin [Mass/Vol] 0.7 mg/dL 0.3-1.2 [facility] Serum or plasma total carbon dioxide measurement (moles/volume)Ordered By: Monroe Whitaker on 10-08-2021 CO2 [Moles/Vol] 22.1 mmol/L 22.0-30.0 [facility] Serum or plasma urea nitroge n measurement (mass/volume)Ordered By: Monroe Whitaker on 10-08-2021 Urea nitrogen [Mass/Vol] 15 mg/dL 02-13 [facility] Specific gravity Auto test s trip (U) [Rel density]Ordered By: Damir Laughlin on 10-08-2021 Specific gravity (U) [Rel density] 1.005 1.001-1.030 [facility] TSH DL <= 0.005 mIU/L QnOrde red By: Damir Laughlin on 10-08-2021 TSH Qn 0.65 m[IU]/L 0.45-5.33 [facility] Thyroxine (T4) free [Mass/vo lume] in Serum or PlasmaOrdered By: Damir Laughlin on 10-08-2021 Free T4 [Mass/Vol] 1.29 ng/dL 0.61-1.12 [facility] Urine bacteria detection by automated methodOrdered By: Damir Laughlin on 10-08-2021 Bacteria Auto Ql (U) None seen None Seen [facility] Urine clarity by refractomet ry automatedOrdered By: Damir Laughlin on 10-08-2021 Clarity Refractometry automated (U) Clear Clear [facility] Urine glucose measurement by automated test strip (mass/volume)Ordered By: Damir Laughlin on 10-08-2021 Glucose Auto test strip (U) [Mass/Vol] Normal mg/dL Normal [facility] Urine hemoglobin detection b y automated test stripOrdered By: Damir Laughlin on 10-08-2021 Hemoglobin Auto test strip Ql (U) Negative Negative [facility] Urine leukocyte esterase det ection by automated test stripOrdered By: Damir Laughlin on 10-08-2021 Leukocyte esterase Auto test strip Ql (U) Negative Negative [facility] Urobilinogen Auto test strip (U) [Mass/Vol]Ordered By: Damir Laughlin on 10-08-2021 Urobilinogen (U) [Mass/Vol] Normal mg/dL Normal [facility] pH Auto test strip (U)Ordere d By: Damir Laughlin on 10-08-2021 pH (U) 7.5 [pH] 5.0-9.0 [facility] Encounters Encounter Date Encounter Type Care Provider Facility Start: 01-18-2023 End: 01-18-2023 ambulatory Monroe Whitaker Facility:[facility] Start: 01-18-2023 End: 01-18-2023 ambulatory JR Monroe Whitaker Work Phone: [facility] Work Phone: Start: 01-18-2023 End: 01-18-2023 Patient encounter procedure JR Monroe Whitaker Work Phone: [facility] [address] Work Phone: Start: 01-04-2023 ambulatory MONROE WHITAKER Facility :[facility] Start: 05-06-2022 End: 05-07-[address] DELGADO BINGHAM Facility:[facility] Start: 04-28-2022 End: 04-28-[address] DELGADO BINGHAM Facility:[facility] Start: 04-07-2022 Encounter for genera l adult medical examination without abnormal findings DR MONROE WHITAKER [facility] Start: 04-03-2022 End: 04-04-[address] MONROE WHITAKER Facility:[facility] Start: 04-03-2022 End: 04-04-2022 Encounter for general adult medical examination without abnormal findings DR MONROE WHITAKER Facility:[facility] Start: 12-09-2021 End: 12-10-2021 ambulatory NIKKI ANNE MARIE Facility:[facility] Start: 10-08-2021 End: 10-08-2021 Patient encounter procedure MD Emmanuel Laughlin Work Phone: [facility] [address] Start: 09-30-2021 End: 09-30-2021 Patient encounter procedure MD Emmanuel Laughlin Work Phone: [facility] [address] Procedures Date Procedure Procedure Detail Performing Clinician Start: 10-01-2021 Plain chest X-ray MD Bebeto Laughlin Work Phone: Plan of Treatment Date Care Activity Detail Author Aldolase measurement [facility] Work Phone: aPTT.lupus sensitive (LA screen) [facility] Work Phone: aPTT.lupus sensitive W excess phospholipid actual/Normal (normalized LA confirm) [facility] Work Phone: aPTT.lupus sensitive /aPTT.lupus sensitive W excess phospholipid (screen to confirm ra [facility] Work Phone: Chromatin Ab [Units/ volume] in Serum or Plasma [facility] Work Phone: Complement C3 [Mass/ volume] in Serum or Plasma [facility] Work Phone: Complement C4 [Mass/ volume] in Serum or Plasma [facility] Work Phone: dRVVT (LA screen) [facility] Work Phone: Hemolytic complement CH50 level [facility] Work Phone: Homogenous nuclear A b pattern [Titer] in Serum [facility] Work Phone: Lupus anticoagulant [Interpretation] in Platelet poor plasma [facility] Work Phone: Myoglobin [Mass/volume] in Serum or Plasm a [facility] Work Phone: Nuclear Ab [Titer] in Serum [facility] Work Phone: Reagin Ab [Presence] in Serum by RPR [facility] Work Phone: Thrombin time [facility] Work Phone: Thyroglobulin Ab [Un its/volume] in Serum or Plasma [facility] Work Phone: Thyroperoxidase Ab [ Units/volume] in Serum or Plasma [facility] Work Phone: Payers Date Payer Category Payer Self-pay [id number] 1980 Unknown [id number] 2.16.84 [id number] 1980 Unknown [id number] 2.16.84 [id number] 1980 Unknown [id number] 2.16.84 [id number] 1980 Unknown [id number] 2.16.84 [id number] 1959 Unknown [id number] 1961 Unknown [id number] Unknown [place] BC/BS [id number] Unknown [id number] 2.16.8 [id number] Social History Date Type Detail Facility Tobacco smoking stat [facility] Unknown if ever smoked [facility] Work Phone: Start: 1980 Sex Assigned At Female [facility] Clinical Note 12-10-2021 Note Date & Type Note Facility 12-10-2021 Note EXAMINATION: CT HEAD WO CON HISTORY: H/O: Disorder ; history of hydrocephaly; evaluation of shunt COMPARISON: CT head 02/20/2016 TECHNIQUE: Axial CT images were obtained without IV contrast. Dose reduction techniques were achieved by using automated exposure control and/or adjustment of mA and/or kV according to patient size and/or use of iterative reconstruction technique. FINDINGS: BRAIN: No edema, hemorrhage, mass, acute infarction, or new atrophy. Absent corpus callosum. CSF SPACES: Intraventricular shunt catheter entering through posterior aspect of right lateral ventricle with tip in anterior horn. No hydrocephalus, subarachnoid hemorrhage, or mass. Appropriate for age. SKULL: Thinning of calvarium at site of current shunt within posterior right parietal bone. Stable, prominent thinning of posterior left parietal bone near vertex of uncertain etiology, possible site of a prior shunt. SINUSES: No significant mucosal thickening or fluid on the limited views. ORBITS: No appreciable abnormality on the limited views. OTHER: Negative IMPRESSION: 1. Stable right intraventricular shunt. No hydrocephalus. 2. Stable appearance of calvarium with areas of bone thinning involving the posterior right and left parietal bones. 3. Stable appearance of brain. Electronically authenticated by: ABDIEL LIN Date: 2021-12-10 07:26 [facility] Evaluation note Note Date & Type Note Facility Evaluation note No assessment information availa [facility] Work Phone: Chief Complaint and Reason for Visit Chief Complaint CTDZ Meds See order Advance Directives No Advanced Directives Records Found Advance Directive Response Recorded Date/ Time Advance Directives No October 06 1:00pm Summary Purpose Family History No Family History Records FoundNo Family History Records FoundNo Family History Records Found Additional Source Comments Care Teams (unrecognized sec tion and content) Team Status: Inactive Member Role Status Dates Emmanuel Laughlin MD Attending Provider Active Team Status: Inactive Member Role Status Dates Monroe Whitaker JR DO Primary Care Provider Active Emmanuel Laughlin MD Attending Provider Active Team Status: Inactive Member Role Status Dates Emmanuel Laughlin MD Attending Provider Active PHYSICIAN NO FAMILY Primary Care Provider Active Team Status: Active Member Role Status Dates oMnroe Whitaker JR DO Primary Care Provider Active Team Status: Inactive Member Role Status Dates Monroe Whitaker JR DO Primary Care Provider Active Damir Laughlin MD Attending Provider Active Goals (unrecognized section and content) Goals may be documented in a n alternate sectionGoals may be documented in an alternate sectionGoals may be documented in an alternate section INFORMATION SOURCE (unrecogn ized section and content) DATE CREATED AUTHOR 05/15/2022 [facility] DATE CREATED AUTHOR AUTHOR'S ORGANIZ ATION 01/07/2023 [facility] DATE CREATED AUTHOR AUTHOR'S ORGANIZ ATION 01/29/2023 [facility] FOR RECORDS PERTAINING TO PATIENTS WHO ARE OR HAVE BEEN ENROLLED IN A CHEMICAL DEPENDENCY/SUBSTANCEABUSE PROGRAM, SOME INFORMATION MAY BE OMITTED. This clinical summary was aggregated from multiple sources. Caution should be exercised in using it in the provision of clinical care. This summary normalizes information from multiple sources, and as a consequence, information in this document may materially change the coding, format and clinical context of patient data. In addition, data may be omitted in some cases. CLINICAL DECISIONS SHOULD BE BASED ON THE PRIMARY CLINICAL RECORDS. [facility]. provides no warranty or guarantee of the accuracy or completeness of information in this document.
[2023-06-14 15:08] LABS: Age Gdln ACOG Testing Note (.); HPV Aptima Negative (Negative); IGP, Aptima HPV, rfx 16/18,45 Note (.)
== END 2023-06-09 21:25 | disposition home or self-care (01) ==
LOC: LAB 21:24
PROVIDERS: PCP Internal Medicine; Visit Provider Physician Assistant
DX: Z01.419 Encounter for gynecological examination (general) (routine) without abnormal findings (principal)
CPT/HCPCS: 87624; G0145

== ENCOUNTER 2024-05-31 11:06 | Outpatient (OUT) | payer BC, SELFPAY ==
--- NOTE | 2024-05-31 11:08 | MM_ITS ---
Patient Name: GARRY GRIGSBY MR#: [id number] : 1980 Exam Date: 05/31/2024 Ordering Doctor: SUZANNA Nicholas . RADIOLOGY REPORT PROCEDURE: MM TOMOSYNTHESIS SCREENING BI COMPARISON: MG MAMM SCREEN 3D MATTEO CAD, 05/06/2022. MM TOMOSYNTHESIS SCREENING BI, 05/18/2023. INDICATIONS: screening for malignant neoplasm of breast Calculator Name NCI Breast Cancer Risk Assessment Tool 5 Year Breast Cancer Risk 1.40% Lifetime Breast Cancer Risk 12.70% Personal Breast Cancer No Personal Ovarian Cancer No Treatments None Family Cancers Grandmother-maternal with breast cancer at age ~60. LOCATION: [facility] BREAST COMPOSITION: The breasts are heterogeneously dense,which may obscure small masses. FINDINGS: DIAGNOSTIC CATEGORY 2--BENIGN FINDING. NO CHANGE FROM COMPARISON. Scattered benign-appearing calcifications are present. Scattered benign-appearing lymph nodes are present. RIGHT BREAST: No significant suspicious finding. LEFT BREAST: No significant suspicious finding. RECOMMENDATIONS: ROUTINE MAMMOGRAM AND CLINICAL EVALUATION IN 12 MONTHS. PLEASE NOTE: A NORMAL MAMMOGRAM DOES NOT EXCLUDE THE POSSIBILITY OF BREAST CANCER. A CLINICALLY SUSPICIOUS PALPABLE LUMP SHOULD BE BIOPSIED. Dictated by: Alex Shi MD on 05/31/2024 at 15:11 Approved by: Alex Shi MD on 05/31/2024 at 15:12
== END 2024-05-31 11:07 | disposition home or self-care (01) ==
LOC: MAMMO 11:06
PROVIDERS: PCP Internal Medicine; Visit Provider Physician Assistant
DX: Z12.31 Encounter for screening mammogram for malignant neoplasm of breast (principal); Z80.3 Family history of malignant neoplasm of breast
CPT/HCPCS: 77063; 77067

== ENCOUNTER 2024-06-13 08:49 | Outpatient (REF) | payer BC, SELFPAY ==
--- OUTSIDE RECORDS SUMMARY | 2024-06-14 08:54 | XMS_ITS | CCD ---
Author Organization [facility] Care Team Providers Care 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 Name Role Phone MD Emmanuel Laughlin Attending Provider [phone] NO FAMILY, PHYSICIAN Primary Care Provider Windyva JR Monroe Haile Primary Care Provider [phone] OTILIA, DR NATARAJAN Attending Unavailable KARASIK, DR NATARAJAN Consulting Unavailable VALONE, DR JOHNSON Primary Care Unavailable KARASIK, DR NATARAJAN Admitting Unavailable KARASIK, DR NATARAJAN Admitting Unavailable KARASIK, DR NATARAJAN Attending Unavailable KARASIK, DR NATARAJAN Consulting Unavailable VALONE, DR JOHNSON Primary Care Unavailable ZIEBANGELA, DR ABDIEL Reynoso Consulting Unavailable VALONE, DR JOHNSON Admitting Unavailable VALONE, DR JOHNSON Attending Unavailable VALONE, DR JOHNSON Consulting Unavailable VALONE, DR JOHNSON Primary Care Unavailable ANNE MARIE, NIKKI Admitting Unavailable ANNE MARIE, NIKKI Attending Unavailable VALONE, DR JOHNSON Primary Care Unavailable ZIEBANGELA, DR ABDIEL Reynoso Consulting Unavailable ANNE MARIE, NIKKI Consulting Unavailable VALISAI, MONROE Referring Unavailable Bobby ROBERT Attending Tasneem Whitaker, JR Monroe Greer Primary Care Provider MD Damir Laughlin Attending Provider [phone] Monroe Whitaker Primary Care Unavailable Damir Laughlin Attending Unavailable Damir Laughlin Admitting Unavailable SAVANNAH BARRAGAN Attending Unavailable ANTIONETTE RICE Attending Unavailable Monroe Whitaker MD Primary Care Provider Allergies Allergy Classification Reported Allergen(s) Allergy Type Date of Onset Reaction(s) Facility (1 source) No Known Medication Allergies; Translations: [No Known Medication Allergies] Propensity to adverse reactions (disorder) [facility] Repository Medications Current Medications Medication Drug Class(es) Dates Sig (Normalized) Sig (Original) 24 hr amphetamine aspartate 2.5 mg / amphetamine sulfate 2.5 mg / dextroamphetamine saccharate 2.5 mg / dextroamphetamine sulfate 2.5 mg extended release oral capsule (1 source) Central Nervous System Stimulant take 1 capsule by mouth in the morning, then take 1 capsule by mouth every twenty-four hours amphetamine-dextroamp hetamine XR (Adderall XR) 10 MG 24 hr capsule Take 10 mg by mouth in the morning. Active ascorbic acid 100 mg chewable tablet (1 source) Vitamin C ascorbic acid (Vitamin C) 100 MG chewable tablet Vitamin C Active B Complex capsule (1 source) B Complex capsul e as directed Orally Active biotin 5 mg sublingual tablet (1 source) Start: 3 take 1 tablet by mouth in the morning Biotin 5000 MCG sublingual tablet Take 1 tablet by mouth in the morning. 10/22/2022 Active cetirizine hydrochloride 10 mg chewable tablet (1 source) Histamine-1 Receptor Antagonist cetirizine (ZyrTEC) 10 MG chewable tablet 1 (one) time each day at the same time Active COLLAGEN-VITAMIN C-BIOTIN PO (1 source) COLLAGEN-VITAMIN C-BIOTIN PO Take by mouth Active estradiol 1 mg oral tablet (1 source) Estrogen Start: 4 take 1 tablet by mouth once daily estradiol (Estrace) 1 MG tablet Indications: Vaginal dryness TAKE 1 TABLET BY MOUTH EVERY DAY 90 tablet 3 05/19/2024 Active etodolac 500 mg oral tablet (1 source) Nonsteroidal Anti-inflammatory Drug Start: 3 take 1 tablet by mouth every other day etodolac (Lodine) 500 MG tablet Take 500 mg by mouth Daily Patient states she is taking 1 every other day 04/26/2023 Active famciclovir 500 mg oral tablet (1 source) Herpes Simplex Virus Nucleoside Analog DNA Polymerase Inhibitor Start: 3 take 1 tablet by mouth every other day famciclovir (Famvir) 500 MG tablet Take 500 mg by mouth Daily States she is taking 1 every other day 05/01/2023 Active famotidine 40 mg oral tablet (1 source) Histamine-2 Receptor Antagonist Start: 3 take 1 tablet by mouth at bedtime famotidine (Pepcid) 40 MG tablet Take 40 mg by mouth at bedtime 04/08/2023 Active Fiber Select Gummies chewable tablet (1 source) Fiber Select Gum mies chewable tablet as directed Orally Active fluticasone propionate 0.05 mg/actuat metered dose nasal spray (1 source) Corticosteroid take 1 spray(s) nasal route in the morning fluticasone (Flonase) 50 MCG/ACT nasal spray Administer 1 spray into each nostril in the morning. Shake gently. Before first use, prime pump. After use, clean tip and replace cap.. Active hydroxychloroquine sulfate 200 mg oral tablet (1 source) Antimalarial, Antirheumatic Agent take 1 tablet by mouth in the morning hydroxychloroquine (Plaquenil) 200 MG tablet Take 1 tablet by mouth in the morning. Active linaclotide 0.072 mg oral capsule (1 source) Guanylate Cyclase-C Agonist Start: 3 Linzess 72 MCG capsule 12/31/2022 Active magnesium oxide 400 mg oral tablet (1 source) Start: 3 take 1 tablet by mouth in the morning magnesium oxide (Mag-Ox) 400 MG tablet Take 1 tablet by mouth in the morning. 06/14/2022 Active montelukast 10 mg oral tablet (1 source) Leukotriene Receptor Antagonist take 1 tablet by mouth once daily montelukast (Singulair) 10 MG tablet TAKE 1 TABLET A DAY BY MOUTH Active Multiple Vitamin (Multi Vitamin) tablet (1 source) Multiple Vitamin (Multi Vitamin) tablet 1 (one) time each day at the same time Active Multiple Vitamins-Minerals (Hair Skin Nails) capsule (1 source) Multiple Vitamins-Minerals (Hair Skin Nails) capsule as directed Orally Active rimegepant 75 mg disintegrating oral tablet (1 source) Nurtec 75 MG tab let dispersible TAKE 1 TABLET BY MOUTH AT ONSET OF MIGRAINE FOR 30 DAYS Active rosuvastatin calcium 5 mg oral tablet (1 source) HMG-CoA Reductase Inhibitor take 1 tablet by mouth in the morning rosuvastatin (Crestor) 5 MG tablet Take 5 mg by mouth in the morning. Active vitamin b12 0.1 mg oral lozenge (1 source) Vitamin B12 Cyanocobalamin (Vitamin B 12) 100 MCG lozenge as directed Orally Active vitamin e 180 mg oral capsule (1 source) take 1 capsule by mouth once daily vitamin E 180 MG (400 UNIT) capsule Take 180 mg by mouth Daily Active Problems Active Problems Problem Classification Problem Date Documented Date Episodic/Chronic Diabetes mellitus without complication (1 source) Other abnormal glucose; Translations: [OTHER ABNORMAL GLUCOSE] Onset: 2 Episodic Disorders of lipid metabolism (1 source) Pure hypercholesterolemia, unspecified; Translations: [PURE HYPERCHOLESTEROLEMIA UNSPEC] Onset: 2 Chronic Headache; including migraine (5 sources) Migraine, unspecified, not intractable, without status migrainosus; Translations: [Migraine] Onset: 2 Chronic Immunizations and screening for infectious disease (1 source) Encounter for screening for human papillomavirus (HPV); Translations: [ENC SCREENING HUMAN PAPILLOMAVIRUS] Onset: 2 Episodic Nervous system congenital anomalies (1 source) Neurofibromatosis syndrome; Translations: [Neurofibromatosis, unspecified] 11-02-2023 Chronic Osteoarthritis (1 source) Primary generalized (osteo)arthritis; Translations: [Primary generalized (osteo)arthritis] Onset: 3 Chronic Other aftercare (1 source) Other long term acute care registered nurse (current) drug therapy; Translations: [OTH [facility] CURRENT DRUG THERAPY] Onset: 2 Episodic Other connective tissue disease (1 source) Myalgia, unspecified site; Translations: [MYALGIA UNSPECIFIED SITE] Onset: 2 Episodic Other nervous system disorders (1 source) Organic sleep-wake cycle disorder; Translations: [Circadian rhythm sleep disorder, unspecified type] Onset: 4 11-02-2023 Chronic Other nervous system disorders (1 source) Bilateral carpal tunnel syndrome; Translations: [Carpal tunnel syndrome, bilateral upper limbs] Onset: 4 11-02-2023 Chronic Other screening for suspected conditions (not mental [...] NS AND SENSE ORGANS] Onset: 12-10-2021 Episodic Other nervous system disorders (1 source) Paresthesia; Translations: [Paresthesia of skin] Onset: 11-02-2023 11-02-2023 Episodic Residual codes; unclassified (1 source) Insomnia; Translations: [Insomnia, unspecified] Onset: 11-02-2023 11-02-2023 Episodic Results Test Name Value Interpretation Reference Range Facility Alanine aminotransferase [En zymatic activity/volume] in Serum or PlasmaOrdered By: Damir Laughlin on 01-18-2023 ALT [Catalytic activity/Vol] 24 U/L 7-52 [facility] Albumin [Mass/volume] in Ser um or Plasma by Bromocresol green (BCG) dye binding methoOrdered By: Damir Laughlin on 01-18-2023 Albumin BCG dye [Mass/Vol] 4.3 g/dL 3.5-5.7 [facility] Alkaline phosphatase [Enzyma tic activity/volume] in Serum or PlasmaOrdered By: Damir Laughlin on 01-18-2023 ALP [Catalytic activity/Vol] 40 U/L 34-104 [facility] Aspartate aminotransferase [ Enzymatic activity/volume] in Serum or PlasmaOrdered By: Damir Laughlin on 01-18-2023 AST [Catalytic activity/Vol] 18 U/L 13-39 [facility] Basophils Auto (Bld) [#/Vol] Ordered By: Damir Laughlin on 01-18-2023 Basophils (Bld) [#/Vol] 0.1 10*3/uL 0.0-0.2 [facility] Basophils/100 WBC Auto (Bld) Ordered By: Damir Laughlin on 01-18-2023 Basophils/100 WBC (Bld) 1.0 % . F [facility] Bilirubin.total [Mass/volume ] in Serum or PlasmaOrdered By: Damir Laughlin on 01-18-2023 Bilirubin [Mass/Vol] 0.5 mg/dL 0.3-1.0 [facility] Calcium [Mass/volume] in Ser um or PlasmaOrdered By: Damir Laughlin on 01-18-2023 Calcium [Mass/Vol] 9.3 mg/dL 8.6-10.3 [facility] Carbon dioxide, total [Moles /volume] in Serum or PlasmaOrdered By: Damir Laughlin on 01-18-2023 CO2 [Moles/Vol] 29.7 mmol/L 21.0-31.0 [facility] Chloride [Moles/volume] in S derrick or PlasmaOrdered By: Damir Laughlin on 01-18-2023 Chloride [Moles/Vol] 108 mmol/L 98-107 [facility] Complete Blood Count Auto Di ffon 01-18-2023 Basophils (Bld) [#/Vol] 0.1 10*3/uL Normal 0.0-0.2 [facility] Comment on above: Result Comment: PERF ORMED BY: [place] [address] PATHOLOGIST SLAG MOTOR OPERATOR SP WALTERS M.D. Performed By: #### C MP, CBC #### [address] Basophils/100 WBC (Bld) 1.0 % Normal . F [facility] Comment on above: Performed By: #### C MP, CBC #### [address] Eosinophils (Bld) [#/Vol] 0.6 10*3/uL High 0.0-0.45 [facility] Comment on above: Performed By: #### C MP, CBC #### [address] Eosinophils/100 WBC (Bld) 8.3 % Normal . [facility] Comment on above: Performed By: #### C MP, CBC #### [address] Erythrocyte distribution width (RBC) [Ratio] 14.5 % Normal 11.9-15.3 [facility] Comment on above: Performed By: #### C MP, CBC #### [address] Hematocrit (Bld) [Volume fraction] 44.6 % Normal 34.0-46.4 [facility] Comment on above: Performed By: #### C MP, CBC #### [address] Hemoglobin (Bld) [Mass/Vol] 14.7 g/dL Normal 11.8-15.4 [facility] Comment on above: Performed By: #### C MP, CBC #### [facility] [address] Lymphocytes (Bld) [#/Vol] 2.5 10*3/uL Normal 1.00-4.8 [facility] Comment on above: Performed By: #### C MP, CBC #### [facility] [address] Lymphocytes/100 WBC (Bld) 36.0 % Normal . [facility] Comment on above: Performed By: #### C MP, CBC #### [address] MCH (RBC) [Entitic mass] 30.2 pg Normal 24.7-34.3 [facility] Comment on above: Performed By: #### C MP, CBC #### [address] MCV (RBC) [Entitic vol] 91.9 fL Normal 80-100 F [facility] Comment on above: Performed By: #### C MP, CBC #### [address] Mean Corpuscular HGB Conc 32.9 g/dL Normal 32.0-35.0 [facility] Comment on above: Performed By: #### C MP, CBC #### [address] Monocytes (Bld) [#/Vol] 0.6 10*3/uL Normal 0.0-0.8 [facility] Comment on above: Performed By: #### C MP, CBC #### [place] [address] [place] Monocytes/100 WBC (Bld) 9.0 % Normal . F [facility] Comment on above: Performed By: #### C MP, CBC #### [place] [address] [place] Neutrophils (Bld) [#/Vol] 3.1 10*3/uL Normal 1.8-7.7 [facility] Comment on above: Performed By: #### C MP, CBC #### [address] Neutrophils/100 WBC (Bld) 45.7 % Normal . [facility] Comment on above: Performed By: #### C MP, CBC #### [facility] [address] NRBC% 0.1 /100{WBC} Normal 0-0.5 [facility] Comment on above: Performed By: #### C MP, CBC #### [facility] [address] Platelet mean volume (Bld) [Entitic vol] 9.0 fL Normal 6.3-10.7 [facility] Comment on above: Performed By: #### C MP, CBC #### [address] Platelets (Bld) [#/Vol] 226 10*3/uL Normal 150-450 [facility] Comment on above: Performed By: #### C MP, CBC #### [address] RBC (Bld) [#/Vol] 4.86 10*6/uL Normal 3.60-5.00 [facility] Comment on above: Performed By: #### C MP, CBC #### [address] WBC (Bld) [#/Vol] 6.9 10*3/uL Normal 3.8-11.6 [facility] Comment on above: Performed By: #### C MP, CBC #### [address] Comprehensive Metabolic Pane yrn 01-18-2023 Albumin [Mass/Vol] 4.3 g/dL Normal 3.5-5.7 [facility] Comment on above: Performed By: #### C MP, CBC #### [facility] [address] Albumin/Globulin [Mass ratio] 1.8 {ratio} Normal [facility] Comment on above: Performed By: #### C MP, CBC #### [address] ALP [Catalytic activity/Vol] 40 U/L Normal 34-104 [facility] Comment on above: Result Comment: PERF ORMED BY: [place] [address] PATHOLOGIST SLAG MOTOR OPERATOR SP WALTERS M.D. Performed By: #### C MP, CBC #### [address] ALT [Catalytic activity/Vol] 24 U/L Normal 7-52 [facility] Comment on above: Performed By: #### C MP, CBC #### [address] Anion gap [Moles/Vol] 9.7 mmol/L Normal 6.0-15.0 [facility] Comment on above: Performed By: #### C MP, CBC #### [address] AST [Catalytic activity/Vol] 18 U/L Normal 13-39 [facility] Comment on above: Performed By: #### C MP, CBC #### [address] Bilirubin [Mass/Vol] 0.5 mg/dL Normal 0.3-1.0 [facility] Comment on above: Performed By: #### C MP, CBC #### [facility] [address] [place] [address] Calcium [Mass/Vol] 9.3 mg/dL Normal 8.6-10.3 [facility] Comment on above: Performed By: #### C MP, CBC #### [address] Chloride [Moles/Vol] 108 mmol/L High 98-107 [facility] Comment on above: Performed By: #### C MP, CBC #### [facility] [address] [place] [id number] [place] CO2 [Moles/Vol] 29.7 mmol/L Normal 21.0-31.0 [facility] Comment on above: Performed By: #### C MP, CBC #### [facility] [address] Creatinine [Mass/Vol] 0.89 mg/dL Normal 0.60-1.20 [facility] Comment on above: Performed By: #### C MP, CBC #### [facility] [address] [place] [address] [place] GFR/1.73 sq M.predicted MDRD (S/P/Bld) [Vol rate/Area] mL/min/{1.73_m2} Normal [facility] Comment on above: Performed By: #### C MP, CBC #### [facility] [address] Globulin (S) [Mass/Vol] 2.4 g/dL Normal [facility] Comment on above: Performed By: #### C MP, CBC #### [facility] [address] Glucose [Mass/Vol] 85 mg/dL Normal 70-100 [facility] Comment on above: Result Comment: [facility] Glucose Reference Range is dependent on time and content of last meal. Glucose of more than 200 mg/dL in a nonstressed, ambulatory subject supports the diagnosis of Diabetes Mellitus. ADA recommended reference range Performed By: #### C MP, CBC #### [facility] [address] [place] [address] [place] Potassium [Moles/Vol] 4.4 mmol/L Normal 3.5-5.1 [facility] Comment on above: Performed By: #### C MP, CBC #### [facility] [address] [place] [address] [place] Protein [Mass/Vol] 6.7 g/dL Normal 6.4-8.9 [facility] Comment on above: Performed By: #### C MP, CBC #### [facility] [address] [place] [address] [place] Sodium [Moles/Vol] 143 mmol/L Normal 136-145 [facility] Comment on above: Performed By: #### C MP, CBC #### [facility] [address] Urea nitrogen [Mass/Vol] 19 mg/dL Normal 7-25 [facility] Comment on above: Performed By: #### C MP, CBC #### [facility] [address] Creatinine [Mass/volume] in Serum or PlasmaOrdered By: Damir Laughlin on 01-18-2023 Creatinine [Mass/Vol] 0.89 mg/dL 0.60-1.20 [facility] Eosinophils Auto (Bld) [#/Vo l]Ordered By: Damir Laughlin on 01-18-2023 Eosinophils (Bld) [#/Vol] 0.6 10*3/uL 0.0-0.45 [facility] Eosinophils/100 WBC Auto (Bl d)Ordered By: Damir Laughlin on 01-18-2023 Eosinophils/100 WBC (Bld) 8.3 % . [facility] Erythrocyte distribution wid th Auto (RBC) [Ratio]Ordered By: Damir Laughlin on 01-18-2023 Erythrocyte distribution width (RBC) [Ratio] 14.5 % 11.9-15.3 [facility] Globulin Calc (S) [Mass/Vol] Ordered By: Damir Laughlin on 01-18-2023 Globulin (S) [Mass/Vol] 2.4 g/dL [facility] Glucose [Mass/volume] in Ser um or PlasmaOrdered By: Damir Laughlin on 01-18-2023 Glucose [Mass/Vol] 85 mg/dL 70-100 [facility] Comment on above: ADA recommended refe rence rangeRandom Glucose Reference Range is dependent on time and content of last meal. Glucose of more than 200 mg/dL in a nonstressed, ambulatory subject supports the diagnosis of Diabetes Mellitus. Hematocrit Auto (Bld) [Volum e fraction]Ordered By: Damir Laughlin on 01-18-2023 Hematocrit (Bld) [Volume fraction] 44.6 % 34.0-46.4 [facility] Hemoglobin [Mass/volume] in BloodOrdered By: Damir Laughlin on 01-18-2023 Hemoglobin (Bld) [Mass/Vol] 14.7 g/dL 11.8-15.4 [facility] Leukocytes [#/volume] correc nicki for nucleated erythrocytes in Blood by Automated counOrdered By: Damir Laughlin on 01-18-2023 WBC corrected for nucl RBC Auto (Bld) [#/Vol] 6.9 10*3/uL 3.8-11.6 [facility] Lymphocytes Auto (Bld) [#/Vo l]Ordered By: Damir Laughlin on 01-18-2023 Lymphocytes (Bld) [#/Vol] 2.5 10*3/uL 1.00-4.8 [facility] Lymphocytes/100 WBC Auto (Bl d)Ordered By: Damir Laughlin on 01-18-2023 Lymphocytes/100 WBC (Bld) 36.0 % . [facility] MCH Auto (RBC) [Entitic mass ]Ordered By: Damir Laughlin on 01-18-2023 MCH (RBC) [Entitic mass] 30.2 pg 24.7-34.3 [facility] MCHC Auto (RBC) [Mass/Vol]Or dered By: Damir Laughlin on 01-18-2023 MCHC (RBC) [Mass/Vol] 32.9 g/dL 32.0-35.0 [facility] MCV Auto (RBC) [Entitic vol] Ordered By: Damir Laughlin on 01-18-2023 MCV (RBC) [Entitic vol] 91.9 fL 80-100 [facility] Monocytes Auto (Bld) [#/Vol] Ordered By: Damir Laughlin on 01-18-2023 Monocytes (Bld) [#/Vol] 0.6 10*3/uL 0.0-0.8 [facility] Monocytes/100 WBC Auto (Bld) Ordered By: Damir Laughlin on 01-18-2023 Monocytes/100 WBC (Bld) 9.0 % . F [facility] Neutrophils Auto (Bld) [#/Vo l]Ordered By: Damir Laughlin on 01-18-2023 Neutrophils (Bld) [#/Vol] 3.1 10*3/uL 1.8-7.7 [facility] Neutrophils/100 WBC Auto (Bl d)Ordered By: Damir Laughlin on 01-18-2023 Neutrophils/100 WBC (Bld) 45.7 % . [facility] No Panel InformationOrdered By: Damir Laughlin on 01-18-2023 Estimated GFR (CKD-EPI) > 60.0 mL/Min [facility] Creatinine Clearance (Chem N/A [facility] Nucleated erythrocytes [Pres ence] in Blood by Automated countOrdered By: Damir Laughlin on 01-18-2023 Nucleated RBC Auto Ql (Bld) 0.1 /100{WBC} 0-0.5 [facility] Platelet mean volume Auto (B ld) [Entitic vol]Ordered By: Damir Laughlin on 01-18-2023 Platelet mean volume (Bld) [Entitic vol] 9.0 fL 6.3-10.7 [facility] Platelets Auto (Bld) [#/Vol] Ordered By: Damir Laughlin on 01-18-2023 Platelets (Bld) [#/Vol] 226 10*3/uL 150-450 [facility] Potassium [Moles/volume] in Serum or PlasmaOrdered By: Damir Laughlin on 01-18-2023 Potassium [Moles/Vol] 4.4 mmol/L 3.5-5.1 [facility] Protein [Mass/volume] in Ser um or PlasmaOrdered By: Damir Laughlin on 01-18-2023 Protein [Mass/Vol] 6.7 g/dL 6.4-8.9 [facility] RBC Auto (Bld) [#/Vol]Ordere d By: Damir Laughlin on 01-18-2023 RBC (Bld) [#/Vol] 4.86 10*6/uL 3.60-5.00 [facility] Serum or plasma albumin/glob ulin mass ratioOrdered By: Damir Laughlin on 01-18-2023 Albumin/Globulin [Mass ratio] 1.8 {ratio} [facility] Serum or plasma anion gap de terminationOrdered By: Damir Laughlin on 01-18-2023 Anion gap [Moles/Vol] 9.7 mmol/L 6.0-15.0 [facility] Sodium [Moles/volume] in Ser um or PlasmaOrdered By: Damir Laughlin on 01-18-2023 Sodium [Moles/Vol] 143 mmol/L 136-145 [facility] Urea nitrogen [Mass/volume] in Serum or PlasmaOrdered By: Damir Laughlin on 01-18-2023 Urea nitrogen [Mass/Vol] 19 mg/dL 7-25 [facility] WBC Auto (Bld) [#/Vol]Ordere d By: Damir Qian on 01-18-2023 WBC (Bld) [#/Vol] 6.9 10*3/uL 3.8-11.6 [facility] Physician Referralon 023 Physician Referral [id number] #[id number]:127 Normal [facility] Physician Referralon 023 Physician Referral [id number] #[id number]:127 Normal [facility] PAP ACOG PANEL 2: 30 to 65on 05-08-2022 . . Normal [facility] Comment on above: Result Comment: Perf ormed at: WB Performed By: #### [id number] ####[facility] [id number] [place] [id number] Barragan Age Gdln ACOG Testing 30-65 Normal [facility] Comment on above: Performed By: #### [id number] ####[facility] [id number] [place] [id number] Barragan DIAGNOSIS: Comment Normal [facility] Comment on above: Result Comment: UNSA TISFACTORY FOR EVALUATION. Performed at: WB Performed By: #### [id number] ####[facility] [address] [place] [phone] Barragan HPV Aptima Negative Normal Negative [facility] Comment on above: Result Comment: This nucleic acid amplification test detects fourteen high-risk HPV types (16,18,31,33,35,39,45,51,52,56,58,59,66,68) without differentiation. Performed at: =G Performed By: #### [id number] ####[facility] [id number] [place] [phone] Barragan HPV Genotype Reflex Comment Normal [facility] Comment on above: Result Comment: Crit ermilena not met, HPV Genotype not performed. Performed at: WB Performed By: #### [id number] ####[facility] [id number] [place] [phone]. Tahir Barragan Methodology: Comment Normal [facility] Comment on above: Result Comment: This liquid based ThinPrep(R) pap test was screened with the use of an image guided system. Performed at: WB Performed By: #### [id number] ####[facility] [address] [place], [place] [address]DrWilber Barragan Note: Comment Normal [facility] Comment on above: Result Comment: The Pap smear is a screening test designed to aid in the detection of premalignant and malignant conditions of the uterine cervix. It is not a diagnostic procedure and should not be used as the sole means of detecting cervical cancer. Both false-positive and false-negative reports do occur. . Performed at: WB Performed By: #### [id number] ####[facility] [address] [place] [address] [place], [place] [id number] Barragan Performed by: Comment Normal [facility] Comment on above: Result Comment: Fercho Gonzalez, Tank Operator (ASCP) Performed at: WB Performed By: #### [id number] ####[facility] [id number] [place] [address]DrWilber Barragan QC reviewed by: Comment Normal [facility] Comment on above: Result Comment: Jesenia Gómez, Supervisory Tank Operator (ASCP) Performed at: WB Performed By: #### [id number] ####[facility] [address] [place], [place] [address]DrWilber Barragan Recommendation: Comment Normal [facility] Comment on above: Result Comment: Sugg est follow up as clinically appropriate. Performed at: WB Performed By: #### [id number] ####[facility] [id number] [place], [place] [address]Cy. Tahir Barragan Specimen adequacy: Comment Normal [facility] Comment on above: Result Comment: Spec imen processed and examined but unsatisfactory for evaluation of epithelial abnormality because of insufficient cellularity. Performed at: WB Performed By: #### [id number] ####[facility] [id number] [place], [place] [address]Xs. Tahir Barragan MG MAMM SCREEN 3D MATTEO CADon 05-06-2022 MG MAMM SCREEN 3D MATTEO CAD Patient: SHAWNA GRIGSBY Exam Date: 05/06/2022 : 1980 Gender:F Ordering : DR DELGADO BINGHAM . Admission #: [id number] Family : Order #: [id number] CLICK HERE TO VIEW EXAM RADIOLOGY REPORT [...] breast cancer at age 58. LOCATION: [facility] BREAST COMPOSITION: Heterogeneously dense,which may [...] M.D. on 05/06/2022 at 15:03 Normal [facility] BUNon 04-03-2022 Urea nitrogen [Mass/Vol] 17.0 mg/dL Normal 7.0-18.0 [facility] Comment on above: Performed By: #### C LINDA, LIPID, BUN, TSH, ELEC, LIVER #### [facility] [address] [place] [address] Dr. Tahir Barragan CBC AUTO DIFFon 04-03-2022 BASO # 0.1 103/ul Normal 0.0-0.1 [facility] Comment on above: Performed By: #### C BC #### [facility] [address] [place] [address] Dr. Tahir Barragan Basophils/100 WBC (Bld) 1.2 % Normal 0.2-2.0 [facility] Comment on above: Performed By: #### C BC #### [facility] [address] [place] [address] Dr. Tahir Barragan EO # 0.3 103/ul Normal 0.0-0.7 [facility] Comment on above: Performed By: #### C BC #### [facility] [address] [place] [address] Dr. Tahir Barragan Eosinophils/100 WBC (Bld) 4.8 % Normal 0.9-7.0 [facility] Comment on above: Performed By: #### C BC #### [facility] [address] [place] [address] Dr. Tahir Barragan Erythrocyte distribution width (RBC) [Ratio] 14.0 % Normal 11.0-15.0 [facility] Comment on above: Performed By: #### C BC #### [facility] [address] [place] [address] Dr. Tahir Barragan Hematocrit (Bld) [Volume fraction] 41.5 % Normal 36.0-48.0 [facility] Comment on above: Performed By: #### C BC #### [facility] [address] [place] [address] Dr. Tahir Barragan Hemoglobin (Bld) [Mass/Vol] 13.8 g/dL Normal 12.0-16.0 [facility] Comment on above: Performed By: #### C BC #### [facility] [address] [place] [address] Dr. Tahir Barragan IG # 0.04 10e3/ul Critically high 0.00-0.03 [facility] Comment on above: Performed By: #### C BC #### [facility] [address] [place] [address] Dr. Tahir Barragan IG % 0.7 % Critically high 0.0-0.5 [facility] Comment on above: Performed By: #### C BC #### [facility] [address] [place] [address] Dr. Tahir Barragan LYMPH # 2.1 103/ul Normal 1.2-3.8 [facility] Comment on above: Performed By: #### C BC #### [facility] [address] [place] [address] Dr. Tahir Barragan Lymphocytes/100 WBC (Bld) 34.1 % Normal 20.5-60.0 [facility] Comment on above: Performed By: #### C BC #### [facility] [address] [place] [address] Dr. Tahir Barragan MANUAL DIFF REQ NO Normal [facility] Comment on above: Performed By: #### C BC #### [facility] [address] [place] [address] Dr. Tahir Barragan MCH (RBC) [Entitic mass] 29.9 pg Normal 26.7-34.0 [facility] Comment on above: Performed By: #### C BC #### [facility] [address] [place] [address] Dr. Tahir Barragan MCHC (RBC) [Mass/Vol] 33.3 g/dL Normal 29.9-35.2 [facility] Comment on above: Performed By: #### C BC #### [facility] [address] [place] [address] Dr. Tahir Barragan MCV (RBC) [Entitic vol] 90.0 fL Normal 81.0-99.0 [facility] Comment on above: Performed By: #### C BC #### [facility] [address] [place] [address] Dr. Tahir Barragan MONO # 0.6 103/ul Normal 0.3-0.8 [facility] Comment on above: Performed By: #### C BC #### [facility] [address] [place] [address] Dr. Tahir Barragan Monocytes/100 WBC (Bld) 9.4 % Normal 1.7-12.0 [facility] Comment on above: Performed By: #### C BC #### [facility] [address] [place] [address] Dr. Tahir Barragan NEUT # 3.0 103/ul Normal 1.4-6.5 [facility] Comment on above: Performed By: #### C BC #### [facility] [address] [place] [address] Dr. Tahir Barragan Neutrophils/100 WBC (Bld) 49.8 % Normal 43.0-75.0 [facility] Comment on above: Performed By: #### C BC #### [facility] [address] [place] [address] Dr. Tahir Barragan Platelet mean volume (Bld) [Entitic vol] 10.6 fL Normal 9.5-13.5 [facility] Comment on above: Performed By: #### C BC #### [facility] [address] [place] [address] Dr. Tahir Barragan PLT 251 103/ul Normal 150-450 [facility] Comment on above: Performed By: #### C BC #### [facility] [address] [place] [address] Dr. Tahir Barragan RBC 4.61 106/ul Normal 4.20-5.40 [facility] Comment on above: Performed By: #### C BC #### [facility] [address] [place] [address] Dr. Tahir Barragan WBC 6.0 103/ul Normal 4.0-11.0 [facility] Comment on above: Performed By: #### C BC #### [facility] [address] [place] [address] Dr. Tahir Barragan CREATININEon 04-03-2022 Creatinine [Mass/Vol] 0.68 mg/dL Normal 0.55-1.02 [facility] Comment on above: Performed By: #### C LINDA, LIPID, BUN, TSH, ELEC, LIVER ####[facility] [id number] [place] [address]Dr. Tahir Barragan EGFR-AF MALAGASY >60 Normal >=60 [facility] Comment on above: Performed By: #### C LINDA, LIPID, BUN, TSH, ELEC, LIVER ####[facility] [id number] [place] [address]Dr. Tahir Barragan EGFR-NON AF MALAGASY >60 Normal >=60 [facility] Comment on above: Performed By: #### C LINDA, LIPID, BUN, TSH, ELEC, LIVER ####[facility] [id number] [place] [address]Dr. Tahir Barragan ELECTROLYTESon 04-03-2022 Anion gap [Moles/Vol] 9.2 mmol/L Normal [facility] Comment on above: Performed By: #### C LINDA, LIPID, BUN, TSH, ELEC, LIVER #### [facility] [address] [address] [address] Tahir Barragan Chloride [Moles/Vol] 105 mmol/L Normal 98-107 [facility] Comment on above: Performed By: #### C LINDA, LIPID, BUN, TSH, ELEC, LIVER #### [facility] [address] [place] [address] [address] Tahir Barragan CO2 [Moles/Vol] 29.7 mmol/L Normal 21.0-32.0 [facility] Comment on above: Performed By: #### C LINDA, LIPID, BUN, TSH, ELEC, LIVER #### [facility] [address] [address] [address] Tahir Barragan Potassium [Moles/Vol] 3.9 mmol/L Normal 3.5-5.1 [facility] Comment on above: Performed By: #### C LINDA, LIPID, BUN, TSH, ELEC, LIVER #### [facility] [address] [address] [address] Tahir Barragan Sodium [Moles/Vol] 140 mmol/L Normal 136-[address] [facility] Comment on above: Performed By: #### C LINDA, LIPID, BUN, TSH, ELEC, LIVER #### [facility] [address] [address] [address] Tahir Barragan GLYCOHEMOGLOBIN A1Con 2021 ADA RECOMMENDATION SEE BELOW Normal [facility] Comment on above: Result Comment: ADA RECOMMENDED LIMIT 4.0 - 6.0 ADA THERAPEUTIC TARGET < 7.0 ACTION SUGGESTED > 7.0 Performed By: #### A 1C #### [facility] [address] [address] [address] Tahir Barragan Glucose [Mass/Vol] 108 mg/dL Normal [facility] Comment on above: Performed By: #### A 1C #### [facility] [address] [place] [address] Dr. Tahir Barragan HbA1c (Bld) [Mass fraction] 5.4 % Normal 4.5-6.2 [facility] Comment on above: Performed By: #### A 1C #### [facility] [address] [place] [address] Dr. Tahir aBrragan LIPID PROFILEon 04-03-2022 CHOL-HDL RATIO NORM SEE BELOW Normal [facility] Comment on above: Result Comment: 3.3 - 4.4 LOW RISK 4.4 - 7.1 AVERAGE RISK 7.1 - 11.0 MODERATE RISK >11.0 HIGH RISK Performed By: #### C LINDA, LIPID, BUN, TSH, ELEC, LIVER #### [facility] [address] [address] [address] Tahir Barragan Cholesterol [Mass/Vol] 177 mg/dL Normal <=200 [facility] Comment on above: Performed By: #### C LINDA, LIPID, BUN, TSH, ELEC, LIVER #### [facility] [address] [address] [address] Tahir Barragan Cholesterol in HDL [Mass/Vol] 69 mg/dL Critically high 40-60 [facility] Comment on above: Performed By: #### C LINDA, LIPID, BUN, TSH, ELEC, LIVER #### [facility] [address] [address] [address] Tahir Barragan Cholesterol in LDL [Mass/Vol] 100.0 mg/dL Normal [facility] Comment on above: Performed By: #### C LINDA, LIPID, BUN, TSH, ELEC, LIVER #### [facility] [address] [address] [address] Tahir Barragan Cholesterol.total/Choles terol in HDL [Mass ratio] 2.6 {ratio} Normal [facility] Comment on above: Performed By: #### C LINDA, LIPID, BUN, TSH, ELEC, LIVER #### [facility] [address] [place] [address] [address] Tahir Barragan HDL NORMAL > or = 60 mg/dl - LOW CARDIOVASCULAR RISK <40 mg/dl - HIGH CARDIOVASCULAR RISK Normal [facility] Comment on above: Performed By: #### C LINDA, LIPID, BUN, TSH, ELEC, LIVER #### [facility] [address] [address] [address] Tahir Barragan LDL CALC NORMAL SEE BELOW Normal [facility] Comment on above: Result Comment: <100 mg/dl OPTIMAL 100 - 129 mg/dl NEAR OR ABOVE OPTIMAL 130 - 159 mg/dl BORDERLINE HIGH 160 - 189 mg/dl HIGH >190 mg/dl VERY HIGH Performed By: #### C LINDA, LIPID, BUN, TSH, ELEC, LIVER #### [facility] [address] [address] [address] Tahir Barragan Triglyceride [Mass/Vol] 40 mg/dL Normal <=150 T [facility] Comment on above: Performed By: #### C LINDA, LIPID, BUN, TSH, ELEC, LIVER #### [facility] [address] [address] [address] Tahir Barragan VLDL CALC 8.0 mg/dL Normal [facility] Comment on above: Performed By: #### C LINDA, LIPID, BUN, TSH, ELEC, LIVER #### [facility] [address] [address] [address] Tahir Barragan LIVER PROFILEon 04-03-2022 Albumin [Mass/Vol] 3.9 g/dL Normal 3.4-5.[address] [facility] Comment on above: Performed By: #### C LINDA, LIPID, BUN, TSH, ELEC, LIVER #### [facility] [address] [place] [address] Dr. Tahir Barragan Albumin/Globulin [Mass ratio] 1.1 {ratio} Normal [facility] Comment on above: Performed By: #### C LINDA, LIPID, BUN, TSH, ELEC, LIVER #### [facility] [address] [place] [address] Dr. Tahir Barragan ALP [Catalytic activity/Vol] 78 U/L Normal 46-116 [facility] Comment on above: Performed By: #### C LINDA, LIPID, BUN, TSH, ELEC, LIVER #### [facility] [address] [place] [address] Dr. Tahir Barragan ALT [Catalytic activity/Vol] 16 U/L Normal 14-59 [facility] Comment on above: Performed By: #### C LINDA, LIPID, BUN, TSH, ELEC, LIVER #### [facility] [address] [place] [address] Dr. Tahir Barragan AST [Catalytic activity/Vol] 9 U/L Critically low 15-37 [facility] Comment on above: Performed By: #### C LINDA, LIPID, BUN, TSH, ELEC, LIVER #### [facility] [address] [place] [address] Dr. Tahir Barragan BILI, CONJUGATED 0.1 mg/dL Normal 0.0-0.2 [facility] Comment on above: Performed By: #### C LINDA, LIPID, BUN, TSH, ELEC, LIVER #### [facility] [address] [place] [address] Dr. Tahir Barragan Bilirubin [Mass/Vol] 0.4 mg/dL Normal 0.2-1.0 [facility] Comment on above: Performed By: #### C LINDA, LIPID, BUN, TSH, ELEC, LIVER #### [facility] [address] [place] [address] Dr. Tahir Barragan Globulin (S) [Mass/Vol] 3.5 g/dL Normal T [facility] Comment on above: Performed By: #### C LINDA, LIPID, BUN, TSH, ELEC, LIVER #### [facility] [address] [address] [address] Tahir Barragan Protein [Mass/Vol] 7.4 g/dL Normal 6.4-8.[address] [facility] Comment on above: Performed By: #### C LINDA, LIPID, BUN, TSH, ELEC, LIVER #### [facility] [address] [address] [address] Tahir Barragan SED RATE WESTERGRENon 2021 SED RATE 24 mm/hr Critically high <=20 [facility] Comment on above: Performed By: #### S EDR #### [facility] [address] [address] [address] Tahir Barragan TSHon 04-03-2022 TSH 0.848 uIU/mL Normal 0.358-3.740 [facility] Comment on above: Performed By: #### C LINDA, LIPID, BUN, TSH, ELEC, LIVER #### [facility] [address] [address] [address] Thair Barragan Activated partial thrombopla stin time (aPTT) in platelet poor plasma by coagulation aOrdered By: Damir Laughlin on 10-08-2021 aPTT Coag (PPP) [Time] 30.3 s 25.1-36.5 [facility] Automated epithelial cells c ount in urine sediment (number/area)Ordered By: Damir Laughlin on 10-08-2021 Epithelial cells Auto (Urine sed) [#/Area] None seen [HPF] [facility] Automated erythrocytes count in urine sediment (number/area)Ordered By: Damir Laughlin on 10-08-2021 RBC Auto (Urine sed) [#/Area] None seen [HPF] [facility] Automated leukocytes count i n urine sediment (number/area)Ordered By: Damir Laughlin on 10-08-2021 WBC Auto (Urine sed) [#/Area] None seen [HPF] [facility] Automated urine hyaline cast s count (number/volume)Ordered By: Damir Laughlin on 10-08-2021 Hyaline casts Auto (U) [#/Vol] None seen [LPF] [facility] Basophils Auto (Bld) [#/Vol] Ordered By: Damir Laughlin on 10-08-2021 Basophils (Bld) [#/Vol] 0.1 10*3/uL 0.0-0.2 [facility] Basophils/100 WBC Auto (Bld) Ordered By: Damir Laughlin on 10-08-2021 Basophils/100 WBC (Bld) 1.0 % [facility] Bilirubin Test strip Ql (U)O rdered By: Damir Laughlin on 10-08-2021 Bilirubin Ql (U) Negative Negative [facility] Blood hemoglobin measurement (mass/volume)Ordered By: Damir Laughlin on 10-08-2021 Hemoglobin (Bld) [Mass/Vol] 12.9 g/dL 11.8-15.4 [facility] Blood leukocytes automated c ount (number/volume)Ordered By: Damir Laughlin on 10-08-2021 WBC (Bld) [#/Vol] 7.1 10*3/uL 4.5-11.0 [facility] Body fluid albumin measureme nt (mass/volume)Ordered By: Monroe Whitaker on 10-08-2021 Albumin (Body fld) [Mass/Vol] 4.1 g/dL 3.2-5.5 [facility] Color Auto (U)Ordered By: Bebeto Laughlin on 10-08-2021 Color (U) Yellow Yellow [facility] Creatine kinase [Enzymatic a ctivity/volume] in Serum or PlasmaOrdered By: Monroe Whitaker on 10-08-2021 CK [Catalytic activity/Vol] 123 U/L 22-269 [facility] Creatinine and Glomerular fi ltration rate.predicted panel (S/P/Bld)Ordered By: Monroe Whitaker on 10-08-2021 Creatinine [Mass/Vol] 0.78 mg/dL 0.44-1.03 [facility] Eosinophils Auto (Bld) [#/Vo l]Ordered By: Damir Laughlin on 10-08-2021 Eosinophils (Bld) [#/Vol] 0.4 10*3/uL 0.0-0.45 [facility] Eosinophils/100 WBC Auto (Bl d)Ordered By: Damir Laughlin on 10-08-2021 Eosinophils/100 WBC (Bld) 5.1 % [facility] Erythrocyte distribution wid th Auto (RBC) [Ratio]Ordered By: Damir Laughlin on 10-08-2021 Erythrocyte distribution width (RBC) [Ratio] 15.0 % 11.9-15.3 [facility] Erythrocyte sedimentation ra te by Photometric methodOrdered By: Damir Laughlin on 10-08-2021 ESR Photometric method (Bld) [Velocity] 15 mm/hr 0-19 [facility] Estimated glomerular filtrat ion rate (GFR) non- AmericanOrdered By: Monroe Whitaker on 10-08-2021 GFR/1.73 sq M.predicted among non-blacks MDRD (S/P/Bld) [Vol rate/Area] > 60 mL/Min [facility] Globulin Calc (S) [Mass/Vol] Ordered By: Monroe Whitaker on 10-08-2021 Globulin (S) [Mass/Vol] 2.2 g/dL [facility] Glucose mean value [Mass/vol ume] in Blood Estimated from glycated hemoglobinOrdered By: Monroe Whitaker on 10-08-2021 Average glucose Estimated from glycated hemoglobin (Bld) [Mass/Vol] 108 mg/dL [facility] Hematocrit Auto (Bld) [Volum e fraction]Ordered By: Damir Laughlin on 10-08-2021 Hematocrit (Bld) [Volume fraction] 38.6 % 34.0-46.4 [facility] Hemoglobin A1c percentageOrd ered By: Monroe Whitaker on 10-08-2021 HbA1c (Bld) [Mass fraction] 5.4 % 4.3-5.6 [facility] Comment on above: Increased risk for d iabetes: 5.7 - 6.4 diabetes: >6.4 glycemic control for adults with diabetes: <7.0 Ketones Auto test strip (U) [Mass/Vol]Ordered By: Damir Laughlin on 10-08-2021 Ketones (U) [Mass/Vol] Negative Negative [facility] - CoagulationOrde red By: Damir Laughlin on 10-08-2021 PT Coag (PPP) [Time] 11.7 s 9.0-12.9 [facility] - Hematology and Cell countsOrdered By: Damir Laughlin on 10-08-2021 Nucleated RBC/100 WBC (Bld) [Ratio] 0.0 % 0-0.5 [facility] Lymphocytes Auto (Bld) [#/Vo l]Ordered By: Damir Laughlin on 10-08-2021 Lymphocytes (Bld) [#/Vol] 2.2 10*3/uL 1.00-4.8 [facility] Lymphocytes/100 WBC Auto (Bl d)Ordered By: Damir Laughlin on 10-08-2021 Lymphocytes/100 WBC (Bld) 31.5 % [facility] MCH Auto (RBC) [Entitic mass ]Ordered By: Damir Laughlin on 10-08-2021 MCH (RBC) [Entitic mass] 30.2 pg 24.7-34.3 [facility] MCHC Auto (RBC) [Mass/Vol]Or dered By: Damir Laughlin on 10-08-2021 MCHC (RBC) [Mass/Vol] 33.3 g/dL 32.0-35.0 [facility] MCV Auto (RBC) [Entitic vol] Ordered By: Damir Laughlin on 10-08-2021 MCV (RBC) [Entitic vol] 90.7 fL 80-100 [facility] Monocytes Auto (Bld) [#/Vol] Ordered By: Damir Laughlin on 10-08-2021 Monocytes (Bld) [#/Vol] 0.5 10*3/uL 0.0-0.8 [facility] Monocytes/100 WBC Auto (Bld) Ordered By: Damir Laughlin on 10-08-2021 Monocytes/100 WBC (Bld) 7.5 % [facility] Neutrophils Auto (Bld) [#/Vo l]Ordered By: Damir Laughlin on 10-08-2021 Neutrophils (Bld) [#/Vol] 3.9 10*3/uL 1.8-7.7 [facility] Neutrophils/100 WBC Auto (Bl d)Ordered By: Damir Laughlin on 10-08-2021 Neutrophils/100 WBC (Bld) 54.9 % [facility] Nitrite Test strip Ql (U)Ord ered By: Damir Laughlin on 10-08-2021 Nitrite Ql (U) Negative Negative [facility] No Panel InformationOrdered By: Monroe Whitaker on 10-08-2021 Estimated GFR () > 60 mL/Min [facility] Comment on above: GFR estimated refere nce range: According to KDOQI guidelines, <60 ml/min/1.73m2 is sufficient to diagnose a patient with chronic kidney disease. Pharmacy Creatinine Clearance (Chem N/A [facility] Platelet mean volume Auto (B ld) [Entitic vol]Ordered By: Damir Laughlin on 10-08-2021 Platelet mean volume (Bld) [Entitic vol] 9.7 fL 6.3-10.7 [facility] Platelet poor plasma interna tional normalized ratio (INR) by coagulation assay (relatOrdered By: Damir Laughlin on 10-08-2021 INR Coag (PPP) [Relative time] 1.0 {INR} [facility] Comment on above: INR Therapeutic Rang e [...] 10-08-2021 Platelets (Bld) [#/Vol] 226 10*3/uL 150-450 [facility] Protein Auto test strip (U) [Mass/Vol]Ordered By: Damir Laughlin on 10-08-2021 Protein (U) [Mass/Vol] Negative Negative Fi [facility] Protein [Mass/volume] in Ser um or PlasmaOrdered By: Monroe Whitaker on 10-08-2021 Protein [Mass/Vol] 6.3 g/dL 6.1-7.9 [facility] RBC Auto (Bld) [#/Vol]Ordere d By: Damir Laughlin on 10-08-2021 RBC (Bld) [#/Vol] 4.25 10*6/uL 3.60-5.00 [facility] Serum or plasma C reactive p rotein measurement (mass/volume)Ordered By: Damirclaudine Laughlin on 10-08-2021 CRP [Mass/Vol] 0.5 mg/dL 0.0-1.0 [facility] Serum or plasma alanine rivera otransferase measurement without P-5'-P (enzymatic activiOrdered By: Monroe Whitaker on 10-08-2021 ALT No additional P-5'-P [Catalytic activity/Vol] 20 U/L 10-60 [facility] Serum or plasma albumin/glob ulin mass ratioOrdered By: Monroe Whitaker on 10-08-2021 Albumin/Globulin [Mass ratio] 1.9 {ratio} [facility] Serum or plasma alkaline marya sphatase measurement (enzymatic activity/volume)Ordered By: Monroe Whitaker on 10-08-2021 ALP [Catalytic activity/Vol] 48 U/L 32-92 [facility] Serum or plasma aspartate am inotransferase measurement (enzymatic activity/volume)Ordered By: Monroe Whitaker on 10-08-2021 AST [Catalytic activity/Vol] 17 U/L 10-42 [facility] Serum or plasma calcium marcy urement (mass/volume)Ordered By: Monroe Whitaker on 10-08-2021 Calcium [Mass/Vol] 9.2 mg/dL 8.2-10.2 [facility] Serum or plasma chloride fabiola surement (moles/volume)Ordered By: Monroe Whitaker on 10-08-2021 Chloride [Moles/Vol] 105 mmol/L 95-114 [facility] Serum or plasma glucose marcy urement (mass/volume)Ordered By: Monroe Whitaker on 10-08-2021 Glucose [Mass/Vol] 92 mg/dL 70-100 [facility] Comment on above: ADA recommended refe rence range Random Glucose Reference Range is dependent on time and content of last meal. Glucose of more than 200 mg/dL in a nonstressed, ambulatory subject supports the diagnosis of Diabetes Mellitus. Serum or plasma potassium me asurement (moles/volume)Ordered By: Monroe Whitaker on 10-08-2021 Potassium [Moles/Vol] 4.0 mmol/L 3.5-5.1 [facility] Serum or plasma sodium measu rement (moles/volume)Ordered By: Monroe Whitaker on 10-08-2021 Sodium [Moles/Vol] 138 mmol/L 136-146 [facility] Serum or plasma total biliru bin measurement (mass/volume)Ordered By: Monroe Whitaker on 10-08-2021 Bilirubin [Mass/Vol] 0.7 mg/dL 0.3-1.2 [facility] Serum or plasma total carbon dioxide measurement (moles/volume)Ordered By: Monroe Whitaker on 10-08-2021 CO2 [Moles/Vol] 22.1 mmol/L 22.0-30.0 [facility] Serum or plasma urea nitroge n measurement (mass/volume)Ordered By: Monroe Whitaker on 10-08-2021 Urea nitrogen [Mass/Vol] 15 mg/dL 9-23 [facility] Specific gravity Auto test s trip (U) [Rel density]Ordered By: Damir Laughlin on 10-08-2021 Specific gravity (U) [Rel density] 1.005 1.001-1.030 [facility] TSH DL <= 0.005 mIU/L QnOrde red By: Damir Laughlin on 10-08-2021 TSH Qn 0.65 m[IU]/L 0.45-5.33 [facility] Thyroxine (T4) free [Mass/vo lume] in Serum or PlasmaOrdered By: Damir Laughlin on 10-08-2021 Free T4 [Mass/Vol] 1.29 ng/dL 0.61-1.12 [facility] Urine bacteria detection by automated methodOrdered By: Damir Laughlin on 10-08-2021 Bacteria Auto Ql (U) None seen None Seen [facility] Urine clarity by refractomet ry automatedOrdered By: Damir Laughlin on 10-08-2021 Clarity Refractometry automated (U) Clear Clear [facility] Urine glucose measurement by automated test strip (mass/volume)Ordered By: Damir Laughlin on 10-08-2021 Glucose Auto test strip (U) [Mass/Vol] Normal mg/dL Normal [facility] Urine hemoglobin detection b y automated test stripOrdered By: Damir Laughlin on 10-08-2021 Hemoglobin Auto test strip Ql (U) Negative Negative [facility] Urine leukocyte esterase det ection by automated test stripOrdered By: Damir Laughlin on 10-08-2021 Leukocyte esterase Auto test strip Ql (U) Negative Negative [facility] Urobilinogen Auto test strip (U) [Mass/Vol]Ordered By: Damir Laughlin on 10-08-2021 Urobilinogen (U) [Mass/Vol] Normal mg/dL Normal [facility] pH Auto test strip (U)Ordere d By: Damir Laughlin on 10-08-2021 pH (U) 7.5 [pH] 5.0-9.0 [facility] Encounters Encounter Date Encounter Type Care Provider Facility Start: 06-13-2024 End: 06-13-2024 Bamboo flowsheet Talon Treva DO Work Phone: [facility] Start: 06-13-2024 End: 06-13-2024 Bamboo flowsheet Talon Treva DO Work Phone: [facility] Start: 11-03-2023 End: 11-03-2023 ambulatory ANTIONETTE RICE Not Available Start: 06-09-2023 End: 06-09-2023 ambulatory SAVANNAH BARRAGAN Not Available Start: 01-18-2023 End: 01-18-2023 ambulatory Monroe Whitaker Facility:[facility] Start: 01-18-2023 End: 01-18-2023 ambulatory JR Monroe Whitaker Work Phone: [facility] Work Phone: Start: 01-18-2023 End: 01-18-2023 Patient encounter procedure JR Monroe Whitaker Work Phone: [facility] [address] Work Phone: Start: 01-04-2023 ambulatory MONROE WHITAKER Facility :[facility] Start: 05-06-2022 End: 05-07-[address] DELGADO BINGHAM Facility:[facility] Start: 04-28-2022 End: 04-28-[address] DELGADO BINGHAM Facility:[facility] Start: 04-07-2022 Encounter for genera l adult medical examination without abnormal findings DR MONROE WHITAKER [facility] Start: 04-03-2022 End: 04-04-[address] MONROE WHITAKER Facility:[facility] Start: 04-03-2022 End: 04-04-2022 Encounter for general adult medical examination without abnormal findings DR MONROE WHITAKER Facility:[facility] Start: 12-09-2021 End: 12-10-2021 ambulatory NIKKI KENNEY Facility:[facility] Start: 10-08-2021 End: 10-08-2021 Patient encounter procedure MD Emmanuel Laughlin Work Phone: [facility] [address] Start: 09-30-2021 End: 09-30-2021 Patient encounter procedure MD Emmanuel Laughlin Work Phone: [facility]XRay [address] Procedures Date Procedure Procedure Detail Performing Clinician Start: 05-31-2024 Mammography Talon olson DO Work Phone: Start: 06-09-2023 Microscopic observat ion [Identifier] in Cervix by Cyto stain Talon Bellao DO Work Phone: Start: 10-01-2021 Plain chest X-ray MD Bebeot Laughlin Work Phone: Plan of Treatment Date Care Activity Detail Author Start: 06-09-2028 Screening for malign ant neoplasm of cervix [facility] Start: 05-31-2025 Screening for malign ant neoplasm of breast Mammogram [facility] Start: 11-01-2024 End: 11-01-2024 Patient encounter procedure 11/01/2024 9:00 AM EDT Office Visit [facility] [address] [place] [address] Antionette Rice PA [address] [place], [place] [id number] [facility] Start: 06-13-2024 End: 06-13-2024 Patient encounter procedure 06/13/2024 8:30 AM EST Office Visit [facility] [address] [place] [address] Talon Tilley, DO [address] [place] [address] Arrived [facility] Comment on above: Arrived Start: 01-23-2024 Influenza vaccination Influenz a Vaccine (#1) [facility] Start: 1980 Screening for malign ant neoplasm of colon [facility] Aldolase measurement [facility] Work Phone: aPTT.lupus sensitive (LA screen) [facility] Work Phone: aPTT.lupus sensitive W excess phospholipid actual/Normal (normalized LA confirm) [facility] Work Phone: aPTT.lupus sensitive/aPTT.lupus sensitive W excess phospholipid (screen to confirm ra [facility] Work Phone: Chromatin Ab [Units/volume] in Serum or Plasma [facility] Work Phone: Complement C3 [Mass/volume] in Serum or Plasma [facility] Work Phone: Complement C4 [Mass/volume] in Serum or Plasma [facility] Work Phone: dRVVT (LA screen) [facility] Work Phone: Hemolytic complement CH50 level [facility] Work Phone: Homogenous nuclear A b pattern [Titer] in Serum [facility] Work Phone: Lupus anticoagulant [Interpretation] in Platelet poor plasma [facility] Work Phone: Myoglobin [Mass/volu me] in Serum or Plasma [facility] Work Phone: Nuclear Ab [Titer] i n Serum [facility] Work Phone: Reagin Ab [Presence] in Serum by RPR [facility] Work Phone: Thrombin time [facility] Work Phone: Thyroglobulin Ab [Units/volume] in Serum or Plasma [facility] Work Phone: Thyroperoxidase Ab [Units/volume] in Serum or Plasma [facility] Work Phone: Immunizations Immunization Date Immunization Notes Care Provider Fa cilimark 03-27-2023 influenza virus vacc ine, unspecified formulation Talonike Bellao DO Work Phone: [facility] Payers Date Payer Category Payer Self-pay [id number] 2021 [facility] [id number] 1978 Unknown [id number] 1978 Unknown [id number] [id number] 1978 Unknown [id number]. [id number] 1978 Unknown [id number]. [id number] 1978 Unknown [id number]. [id number] 1978 Unknown [id number]. [id number] 1959 Unknown [id number] 1959 Unknown [id number] Unknown Margot BC/BS [id number] Unknown [id number] [id number] Social History Date Type Detail Facility Tobacco smoking status LAIS Unkn own if ever smoked [facility] Work Phone: Start: 1980 Sex Assigned At Female F [facility] Start: 06-07-2023 Tobacco smoking status [facility] Ne eli smoked tobacco [facility] Start: 11-03-2023 Alcoholic beverage intake Curr ent drinker of alcohol (finding) [facility] Start: 06-07-2023 End: 11-02-2023 History of Social function [facility] Start: 06-07-2023 End: 11-02-2023 Alcohol Use Disorder Identification Test - Consumption [AUDIT-C] [facility] How often to you hav e a drink containing alcohol? 2-4 times a month [facility] How many standard dr inks containing alcohol do you have on a typical day? 1 or 2 [facility] How often do you hav e 6 or more drinks on 1 occasion? Never [facility] Start: 1980 Sex assigned at Not on file N [facility] Clinical Note 12-10-2021 Note Date & [...] authenticated by: ABDIEL LIN Date: 2021-12-10 07:26 [facility] Evaluation note Note Date & Type Note Facility Evaluation note No assessment information availa [facility] Work Phone: Chief Complaint and Reason for Visit Chief Complaint CTDZ Meds See order Advance Directives Advance Directive Response Recorded Date/ Time Advance [...] Team Status: Active Member Role Status Dates Monroe Whitaker JR DO Primary Care Provider Active Team Status: Inactive Member Role Status Dates Monroe Whitaker JR DO Primary Care Provider Active Damir Laughlin MD Attending Provider Active 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 Relationship Specialty Start Date End Date Monroe Whitaker MD [address] [place] [address] PCP - General Internal Medicine 06/09/23 Goals (unrecognized section and content) Goals may be documented in a n alternate sectionGoals may be documented in an alternate sectionGoals may be documented in an alternate section INFORMATION SOURCE (unrecogn ized section and content) DATE CREATED AUTHOR 05/15/2022 [facility] DATE CREATED AUTHOR AUTHOR'S ORGANIZ ATION 01/07/2023 [facility] DATE CREATED AUTHOR AUTHOR'S ORGANIZ ATION 01/29/2023 [facility] DATE CREATED AUTHOR AUTHOR'S ORGANIZ ATION 11/04/2023 [facility] EPIC FOR RECORDS PERTAINING TO PATIENTS WHO ARE [...] BE BASED ON THE PRIMARY CLINICAL RECORDS. [facility]. provides no warranty or guarantee of the accuracy or completeness of information in this document.
== END 2024-06-13 08:50 | disposition home or self-care (01) ==
LOC: LAB 08:49
PROVIDERS: PCP Internal Medicine; Visit Provider Obstetrics & Gynecology
DX: Z01.419 Encounter for gynecological examination (general) (routine) without abnormal findings (principal)
CPT/HCPCS: 87624; 88175

== ENCOUNTER 2024-06-14 10:39 | Outpatient (OUT) | payer BC, SELFPAY ==
--- OUTSIDE RECORDS SUMMARY | 2024-06-14 10:54 | XMS_ITS | CCD ---
Author Organization [facility] Care Team Providers Care Control Supervisor Name Role Phone MD Emmanuel Laughlin Attending Provider [phone] NO FAMILY, PHYSICIAN Primary Care Provider Windyva JR Monroe Haile Primary Care Provider [phone] OTILIA, DR NATARAJAN Attending Unavailable KARASIK, DR [...] Care Provider MD Damir Laughlin Attending Provider Monroe Whitaker Primary Care Unavailable Damir Laughlin Attending Unavailable Damir Laughlin Admitting Unavailable SAVANNAH BARRAGAN Attending Unavailable ANTIONETTE RICE Attending Unavailable Monroe Whitaker MD Primary Care Provider [phone] Allergies Allergy Classification Reported Allergen(s) Allergy Type Date of Onset Reaction(s) Facility (1 source) No Known Medication Allergies; Translations: [No Known Medication Allergies] Propensity to adverse reactions (disorder) [facility] Repository Medications Current Medications Medication Drug Class(es) [...] 3 Chronic Other aftercare (1 source) Other nutrition helper (current) drug therapy; Translations: [OTH JAIL CURRENT DRUG THERAPY] Onset: 2 Episodic Other [...] 01-18-2023 ALT [Catalytic activity/Vol] 24 U/L 7-52 [facility] Albumin [Mass/volume] in Ser um or Plasma by Bromocresol green (BCG) dye binding methoOrdered By: Damir Laughlin on 01-18-2023 Albumin BCG dye [Mass/Vol] 4.3 g/dL 3.5-5.7 [facility] Alkaline phosphatase [Enzyma tic activity/volume] in Serum or PlasmaOrdered By: Damir Laughlin on 01-18-2023 ALP [Catalytic activity/Vol] 40 U/L 34-104 [facility] Aspartate aminotransferase [ Enzymatic activity/volume] in Serum or PlasmaOrdered By: Damir Laughlin on 01-18-2023 AST [Catalytic activity/Vol] 18 U/L 13-39 [facility] Basophils Auto (Bld) [#/Vol] Ordered By: Damir Laughlin on 01-18-2023 Basophils (Bld) [#/Vol] 0.1 10*3/uL 0.0-0.2 [facility] Basophils/100 WBC Auto (Bld) Ordered By: Damir Laughlin on 01-18-2023 Basophils/100 WBC (Bld) 1.0 % . [facility] Bilirubin.total [Mass/volume ] in Serum or PlasmaOrdered By: Damir Laughlin on 01-18-2023 Bilirubin [Mass/Vol] 0.5 mg/dL 0.3-1.0 [facility] Calcium [Mass/volume] in Ser um or PlasmaOrdered By: Damir Laughlin on 01-18-2023 Calcium [Mass/Vol] 9.3 mg/dL 8.6-10.3 [facility] Carbon dioxide, total [Moles /volume] in Serum or PlasmaOrdered By: Damir Laughlin on 01-18-2023 CO2 [Moles/Vol] 29.7 mmol/L 21.0-31.0 [facility] Chloride [Moles/volume] in S derrick or PlasmaOrdered By: Damir Laughlin on 01-18-2023 Chloride [Moles/Vol] 108 mmol/L 98-107 [facility] Complete Blood Count Auto Di ffon 01-18-2023 Basophils (Bld) [#/Vol] 0.1 10*3/uL Normal 0.0-0.2 [facility] Comment on above: Result Comment: PERF ORMED BY: [place] [address] PATHOLOGIST NEWS [employer] PERSON SP WALTERS M.D. Performed By: #### C MP, CBC #### [address] Basophils/100 WBC (Bld) 1.0 % Normal . [facility] Comment on above: Performed By: #### C MP, CBC #### [address] Eosinophils (Bld) [#/Vol] 0.6 10*3/uL High 0.0-0.45 [facility] Comment on above: Performed By: #### C MP, CBC #### [address] Eosinophils/100 WBC (Bld) 8.3 % Normal . [facility] Comment on above: Performed By: #### C MP, CBC #### [address] Erythrocyte distribution width (RBC) [Ratio] 14.5 % Normal 11.9-15.3 [facility] Comment on above: Performed By: #### C MP, CBC #### [address] Hematocrit (Bld) [Volume fraction] 44.6 % Normal 34.0-46.4 [facility] Comment on above: Performed By: #### C MP, CBC #### [address] Hemoglobin (Bld) [Mass/Vol] 14.7 g/dL Normal 11.8-15.4 [facility] Comment on above: Performed By: #### C MP, CBC #### [facility] [address] Lymphocytes (Bld) [#/Vol] 2.5 10*3/uL Normal 1.00-4.8 [facility] Comment on above: Performed By: #### C MP, CBC #### [facility] [address] Lymphocytes/100 WBC (Bld) 36.0 % Normal . [facility] Comment on above: Performed By: #### C MP, CBC #### [address] MCH (RBC) [Entitic mass] 30.2 pg Normal 24.7-34.3 [facility] Comment on above: Performed By: #### C MP, CBC #### [address] MCV (RBC) [Entitic vol] 91.9 fL Normal 80-100 [facility] Comment on above: Performed By: #### C MP, CBC #### [address] Mean Corpuscular HGB Conc 32.9 g/dL Normal 32.0-35.0 [facility] Comment on above: Performed By: #### C MP, CBC #### [address] Monocytes (Bld) [#/Vol] 0.6 10*3/uL Normal 0.0-0.8 [facility] Comment on above: Performed By: #### C MP, CBC #### [place] [address] [place] Monocytes/100 WBC (Bld) 9.0 % Normal . [facility] Comment on above: Performed By: #### C MP, CBC #### [place] [address] [place] Neutrophils (Bld) [#/Vol] 3.1 10*3/uL Normal 1.8-7.7 [facility] Comment on above: Performed By: #### C MP, CBC #### [address] Neutrophils/100 WBC (Bld) 45.7 % Normal . [facility] Comment on above: Performed By: #### C MP, CBC #### [facility] [address] NRBC% 0.1 /100{WBC} Normal 0-0.5 [facility] Comment on above: Performed By: #### C MP, CBC #### [facility] [address] Platelet mean volume (Bld) [Entitic vol] 9.0 fL Normal 6.3-10.7 [facility] Comment on above: Performed By: #### C MP, CBC #### [address] Platelets (Bld) [#/Vol] 226 10*3/uL Normal 150-450 [facility] Comment on above: Performed By: #### C MP, CBC #### [address] RBC (Bld) [#/Vol] 4.86 10*6/uL Normal 3.60-5.00 [facility] Comment on above: Performed By: #### C MP, CBC #### [address] WBC (Bld) [#/Vol] 6.9 10*3/uL Normal 3.8-11.6 [facility] Comment on above: Performed By: #### C MP, CBC #### [address] Comprehensive Metabolic Pane yrn 01-18-2023 Albumin [Mass/Vol] 4.3 g/dL Normal 3.5-5.7 [facility] Comment on above: Performed By: #### C MP, CBC #### [facility] [address] Albumin/Globulin [Mass ratio] 1.8 {ratio} Normal [facility] Comment on above: Performed By: #### C MP, CBC #### [address] ALP [Catalytic activity/Vol] 40 U/L Normal 34-104 [facility] Comment on above: Result Comment: PERF ORMED BY: [place] [address] PATHOLOGIST NEWS [employer] PERSON SP WALTERS M.D. Performed By: #### C MP, CBC #### [address] ALT [Catalytic activity/Vol] 24 U/L Normal 7-52 [facility] Comment on above: Performed By: #### C MP, CBC #### [address] Anion gap [Moles/Vol] 9.7 mmol/L Normal 6.0-15.0 [facility] Comment on above: Performed By: #### C MP, CBC #### [address] AST [Catalytic activity/Vol] 18 U/L Normal 13-39 [facility] Comment on above: Performed By: #### C MP, CBC #### [address] Bilirubin [Mass/Vol] 0.5 mg/dL Normal 0.3-1.0 [facility] Comment on above: Performed By: #### C MP, CBC #### [facility] [address] [place] [address] Calcium [Mass/Vol] 9.3 mg/dL Normal 8.6-10.3 [facility] Comment on above: Performed By: #### C MP, CBC #### [address] Chloride [Moles/Vol] 108 mmol/L High 98-107 [facility] Comment on above: Performed By: #### C MP, CBC #### [facility] [address] [place] [id number] [place] CO2 [Moles/Vol] 29.7 mmol/L Normal 21.0-31.0 [facility] Comment on above: Performed By: #### C MP, CBC #### [facility] [address] Creatinine [Mass/Vol] 0.89 mg/dL Normal 0.60-1.20 [facility] Comment on above: Performed By: #### C MP, CBC #### [facility] [address] [place] [address] [place] GFR/1.73 sq M.predicted MDRD (S/P/Bld) [Vol rate/Area] mL/min/{1.73_m2} Normal [facility] Comment on above: Performed By: #### C MP, CBC #### [facility] [address] Globulin (S) [Mass/Vol] 2.4 g/dL Normal [facility] Comment on above: Performed By: #### C MP, CBC #### [facility] [address] Glucose [Mass/Vol] 85 mg/dL Normal 70-100 [facility] Comment on above: Result Comment: [facility] Glucose Reference Range is dependent on time and content of last meal. Glucose of more than 200 mg/dL in a nonstressed, ambulatory subject supports the diagnosis of Diabetes Mellitus. ADA recommended reference range Performed By: #### C MP, CBC #### [facility] [address] [place] [address] [place] Potassium [Moles/Vol] 4.4 mmol/L Normal 3.5-5.1 [facility] Comment on above: Performed By: #### C MP, CBC #### [facility] [address] [place] [address] [place] Protein [Mass/Vol] 6.7 g/dL Normal 6.4-8.9 [facility] Comment on above: Performed By: #### C MP, CBC #### [facility] [address] [place] [address] [place] Sodium [Moles/Vol] 143 mmol/L Normal 136-145 [facility] Comment on above: Performed By: #### C MP, CBC #### [facility] [address] Urea nitrogen [Mass/Vol] 19 mg/dL Normal 7-25 [facility] Comment on above: Performed By: #### C MP, CBC #### [facility] [address] Creatinine [Mass/volume] in Serum or PlasmaOrdered By: Damir Laughlin on 01-18-2023 Creatinine [Mass/Vol] 0.89 mg/dL 0.60-1.20 [facility] Eosinophils Auto (Bld) [#/Vo l]Ordered By: Damir Laughlin on 01-18-2023 Eosinophils (Bld) [#/Vol] 0.6 10*3/uL 0.0-0.45 [facility] Eosinophils/100 WBC Auto (Bl d)Ordered By: Damir Laughlin on 01-18-2023 Eosinophils/100 WBC (Bld) 8.3 % . [facility] Erythrocyte distribution wid th Auto (RBC) [Ratio]Ordered By: Damir Laughlin on 01-18-2023 Erythrocyte distribution width (RBC) [Ratio] 14.5 % 11.9-15.3 [facility] Globulin Calc (S) [Mass/Vol] Ordered By: Damir Laughlin on 01-18-2023 Globulin (S) [Mass/Vol] 2.4 g/dL [facility] Glucose [Mass/volume] in Ser um or PlasmaOrdered By: Damir Laughlin on 01-18-2023 Glucose [Mass/Vol] 85 mg/dL 70-100 [facility] Comment on above: ADA recommended refe rence rangeRandom Glucose Reference Range is dependent on time and content of last meal. Glucose of more than 200 mg/dL in a nonstressed, ambulatory subject supports the diagnosis of Diabetes Mellitus. Hematocrit Auto (Bld) [Volum e fraction]Ordered By: Damir Laughlin on 01-18-2023 Hematocrit (Bld) [Volume fraction] 44.6 % 34.0-46.4 [facility] Hemoglobin [Mass/volume] in BloodOrdered By: Damir Laughlin on 01-18-2023 Hemoglobin (Bld) [Mass/Vol] 14.7 g/dL 11.8-15.4 [facility] Leukocytes [#/volume] correc nicki for nucleated erythrocytes in Blood by Automated counOrdered By: Damir Laughlin on 01-18-2023 WBC corrected for nucl RBC Auto (Bld) [#/Vol] 6.9 10*3/uL 3.8-11.6 [facility] Lymphocytes Auto (Bld) [#/Vo l]Ordered By: Damir Laughlin on 01-18-2023 Lymphocytes (Bld) [#/Vol] 2.5 10*3/uL 1.00-4.8 [facility] Lymphocytes/100 WBC Auto (Bl d)Ordered By: Damir Laughlin on 01-18-2023 Lymphocytes/100 WBC (Bld) 36.0 % . [facility] MCH Auto (RBC) [Entitic mass ]Ordered By: Damir Laughlin on 01-18-2023 MCH (RBC) [Entitic mass] 30.2 pg 24.7-34.3 [facility] MCHC Auto (RBC) [Mass/Vol]Or dered By: Damir Laughlin on 01-18-2023 MCHC (RBC) [Mass/Vol] 32.9 g/dL 32.0-35.0 [facility] MCV Auto (RBC) [Entitic vol] Ordered By: Damir Laughlin on 01-18-2023 MCV (RBC) [Entitic vol] 91.9 fL 80-100 [facility] Monocytes Auto (Bld) [#/Vol] Ordered By: Damir Laughlin on 01-18-2023 Monocytes (Bld) [#/Vol] 0.6 10*3/uL 0.0-0.8 [facility] Monocytes/100 WBC Auto (Bld) Ordered By: Damir Laughlin on 01-18-2023 Monocytes/100 WBC (Bld) 9.0 % . [facility] Neutrophils Auto (Bld) [#/Vo l]Ordered By: Damir Laughlin on 01-18-2023 Neutrophils (Bld) [#/Vol] 3.1 10*3/uL 1.8-7.7 [facility] Neutrophils/100 WBC Auto (Bl d)Ordered By: Damir Laughlin on 01-18-2023 Neutrophils/100 WBC (Bld) 45.7 % . [facility] No Panel InformationOrdered By: Damir Laughlin on 01-18-2023 Estimated GFR (CKD-EPI) > 60.0 mL/Min [facility] Creatinine Clearance (Chem N/A [facility] Nucleated erythrocytes [Pres ence] in Blood by Automated countOrdered By: Damir Laughlin on 01-18-2023 Nucleated RBC Auto Ql (Bld) 0.1 /100{WBC} 0-0.5 [facility] Platelet mean volume Auto (B ld) [Entitic vol]Ordered By: Damir Laughlin on 01-18-2023 Platelet mean volume (Bld) [Entitic vol] 9.0 fL 6.3-10.7 [facility] Platelets Auto (Bld) [#/Vol] Ordered By: Damir Laughlin on 01-18-2023 Platelets (Bld) [#/Vol] 226 10*3/uL 150-450 [facility] Potassium [Moles/volume] in Serum or PlasmaOrdered By: Damir Laughlin on 01-18-2023 Potassium [Moles/Vol] 4.4 mmol/L 3.5-5.1 [facility] Protein [Mass/volume] in Ser um or PlasmaOrdered By: Damir Laughlin on 01-18-2023 Protein [Mass/Vol] 6.7 g/dL 6.4-8.9 [facility] RBC Auto (Bld) [#/Vol]Ordere d By: Damir Laughlin on 01-18-2023 RBC (Bld) [#/Vol] 4.86 10*6/uL 3.60-5.00 [facility] Serum or plasma albumin/glob ulin mass ratioOrdered By: Damir Laughlin on 01-18-2023 Albumin/Globulin [Mass ratio] 1.8 {ratio} [facility] Serum or plasma anion gap de terminationOrdered By: Damir Laughlin on 01-18-2023 Anion gap [Moles/Vol] 9.7 mmol/L 6.0-15.0 [facility] Sodium [Moles/volume] in Ser um or PlasmaOrdered By: Damir Laughlin on 01-18-2023 Sodium [Moles/Vol] 143 mmol/L 136-145 [facility] Urea nitrogen [Mass/volume] in Serum or PlasmaOrdered By: Damir Laughlin on 01-18-2023 Urea nitrogen [Mass/Vol] 19 mg/dL 7-25 [facility] WBC Auto (Bld) [#/Vol]Ordere d By: Damir Qian on 01-18-2023 WBC (Bld) [#/Vol] 6.9 10*3/uL 3.8-11.6 [facility] Physician Referralon 023 Physician Referral [id number] #1.00CD:127 Normal [facility] Physician Referralon 023 Physician Referral [id number] #1.00CD:127 Normal [facility] PAP ACOG PANEL 2: 30 to 65on 05-08-2022 . . Normal [facility] Comment on above: Result Comment: Perf ormed at: WB Performed By: #### [id number] ####[facility] [address] [place] [address]DrWilber Barragan Age Gdln ACOG Testing 30-65 Normal [facility] Comment on above: Performed By: #### 4 [id number] ####[facility] [address] [place] [id number] Barragan DIAGNOSIS: Comment Normal [facility] Comment on above: Result Comment: UNSA TISFACTORY FOR EVALUATION. Performed at: WB Performed By: #### 4 [id number] ####[facility] [address] [place] [id number] Barragan HPV Aptima Negative Normal Negative [facility] Comment on above: Result Comment: This nucleic acid amplification test detects fourteen high-risk HPV types (16,18,31,33,35,39,45,51,52,56,58,59,66,68) without differentiation. Performed at: =G Performed By: #### 4 [id number] ####[facility] [address] [place] [id number] Barragan HPV Genotype Reflex Comment Normal [facility] Comment on above: Result Comment: Crit ermilena not met, HPV Genotype not performed. Performed at: WB Performed By: #### 4 [id number] ####[facility] [address] [place] [id number]. Tahir Barragan Methodology: Comment Normal [facility] Comment on above: Result Comment: This liquid based ThinPrep(R) pap test was screened with the use of an image guided system. Performed at: WB Performed By: #### 4 [id number] ####[facility] [address] [place], [place] [address]DrWilber Barragan Note: Comment Normal [facility] Comment on above: Result Comment: The Pap smear is a screening test designed to aid in the detection of premalignant and malignant conditions of the uterine cervix. It is not a diagnostic procedure and should not be used as the sole means of detecting cervical cancer. Both false-positive and false-negative reports do occur. . Performed at: WB Performed By: #### 4 [id number] ####[facility] [address] [place], [place] [id number] Barragan Performed by: Comment Normal [facility] Comment on above: Result Comment: Fercho Gonzalez, Sanitary Engineering Teacher (ASCP) Performed at: WB Performed By: #### 4 [id number] ####[facility] [address] [place] [address]DrWilber Barragan QC reviewed by: Comment Normal [facility] Comment on above: Result Comment: Jesenia Gómez, Supervisory Sanitary Engineering Teacher (ASCP) Performed at: WB Performed By: #### 4 [id number] ####[facility] [address] [place], [place] [address]DrWilber Barragan Recommendation: Comment Normal [facility] Comment on above: Result Comment: Sugg est follow up as clinically appropriate. Performed at: WB Performed By: #### 4 [id number] ####[facility] [address] [place], [place] [address]Na. Tahir Barragan Specimen adequacy: Comment Normal [facility] Comment on above: Result Comment: Spec imen processed and examined but unsatisfactory for evaluation of epithelial abnormality because of insufficient cellularity. Performed at: WB Performed By: #### 4 [id number] ####[facility] [address] [place], [place] [address]Oc. Tahir Barragan MG MAMM SCREEN 3D MATTEO CADon 05-06-2022 MG MAMM SCREEN 3D MATTEO CAD Patient: SHAWNA GRIGSBY Exam Date: 05/06/2022 : 1980 Gender:F Ordering : DR DELGADO BINGHAM . Admission #: [id number] Family : Order #: [id number] CLICK HERE TO VIEW EXAM RADIOLOGY REPORT [...] breast cancer at age 58. LOCATION: [facility] BREAST COMPOSITION: Heterogeneously dense,which may obscure small [...] M.D. on 05/06/2022 at 15:03 Normal [facility] BUNon 04-03-2022 Urea nitrogen [Mass/Vol] 17.0 mg/dL Normal 7.0-18.0 [facility] Comment on above: Performed By: #### C LINDA, LIPID, BUN, TSH, ELEC, LIVER #### [facility] [address] [place] [address] Dr. Tahir Barragan CBC AUTO DIFFon 04-03-2022 BASO # 0.1 103/ul Normal 0.0-0.1 [facility] Comment on above: Performed By: #### C BC #### [facility] [address] [place] [address] Dr. Tahir Barragan Basophils/100 WBC (Bld) 1.2 % Normal 0.2-2.0 [facility] Comment on above: Performed By: #### C BC #### [facility] [address] [place] [address] Dr. Tahir Barragan EO # 0.3 103/ul Normal 0.0-0.7 [facility] Comment on above: Performed By: #### C BC #### [facility] [address] [place] [address] Dr. Tahir Barragan Eosinophils/100 WBC (Bld) 4.8 % Normal 0.9-7.0 [facility] Comment on above: Performed By: #### C BC #### [facility] [address] [place] [address] Dr. Tahir Barragan Erythrocyte distribution width (RBC) [Ratio] 14.0 % Normal 11.0-15.0 [facility] Comment on above: Performed By: #### C BC #### [facility] [address] [place] [address] Dr. Tahir Barragan Hematocrit (Bld) [Volume fraction] 41.5 % Normal 36.0-48.0 [facility] Comment on above: Performed By: #### C BC #### [facility] [address] [place] [address] Dr. Tahir Barragan Hemoglobin (Bld) [Mass/Vol] 13.8 g/dL Normal 12.0-16.0 [facility] Comment on above: Performed By: #### C BC #### [facility] [address] [place] [address] Dr. Tahir Barragan IG # 0.04 10e3/ul Critically high 0.00-0.03 [facility] Comment on above: Performed By: #### C BC #### [facility] [address] [place] [address] Dr. Tahir Barragan IG % 0.7 % Critically high 0.0-0.5 [facility] Comment on above: Performed By: #### C BC #### [facility] [address] [place] [address] Dr. Tahir Barragan LYMPH # 2.1 103/ul Normal 1.2-3.8 [facility] Comment on above: Performed By: #### C BC #### [facility] [address] [place] [address] Dr. Tahir Barragan Lymphocytes/100 WBC (Bld) 34.1 % Normal 20.5-60.0 [facility] Comment on above: Performed By: #### C BC #### [facility] [address] [place] [address] Dr. Tahir Barragan MANUAL DIFF REQ NO Normal [facility] Comment on above: Performed By: #### C BC #### [facility] [address] [place] [address] Dr. Tahir Barragan MCH (RBC) [Entitic mass] 29.9 pg Normal 26.7-34.0 [facility] Comment on above: Performed By: #### C BC #### [facility] [address] [place] [address] Dr. Tahir Barragan MCHC (RBC) [Mass/Vol] 33.3 g/dL Normal 29.9-35.2 [facility] Comment on above: Performed By: #### C BC #### [facility] [address] [place] [address] Dr. Tahir Barragan MCV (RBC) [Entitic vol] 90.0 fL Normal 81.0-99.0 [facility] Comment on above: Performed By: #### C BC #### [facility] [address] [place] [address] Dr. Tahir Barragan MONO # 0.6 103/ul Normal 0.3-0.8 [facility] Comment on above: Performed By: #### C BC #### [facility] [address] [place] [address] Dr. Tahir Barragan Monocytes/100 WBC (Bld) 9.4 % Normal 1.7-12.0 [facility] Comment on above: Performed By: #### C BC #### [facility] [address] [place] [address] Dr. Tahir Barragan NEUT # 3.0 103/ul Normal 1.4-6.5 [facility] Comment on above: Performed By: #### C BC #### [facility] [address] [place] [address] Dr. Tahir Barragan Neutrophils/100 WBC (Bld) 49.8 % Normal 43.0-75.0 [facility] Comment on above: Performed By: #### C BC #### [facility] [address] [place] [address] Dr. Tahir Barragan Platelet mean volume (Bld) [Entitic vol] 10.6 fL Normal 9.5-13.5 [facility] Comment on above: Performed By: #### C BC #### [facility] [address] [place] [address] Dr. Tahir Barragan PLT 251 103/ul Normal 150-450 [facility] Comment on above: Performed By: #### C BC #### [facility] [address] [place] [address] Dr. Tahir Barragan RBC 4.61 106/ul Normal 4.20-5.40 [facility] Comment on above: Performed By: #### C BC #### [facility] [address] [place] [address] Dr. Tahir Barragan WBC 6.0 103/ul Normal 4.0-11.0 [facility] Comment on above: Performed By: #### C BC #### [facility] [address] [place] [address] Dr. Tahir Barragan CREATININEon 04-03-2022 Creatinine [Mass/Vol] 0.68 mg/dL Normal 0.55-1.02 [facility] Comment on above: Performed By: #### C LINDA, LIPID, BUN, TSH, ELEC, LIVER ####[facility] [id number] [address]Dr. Tahir Barragan EGFR-AF IVORIAN >60 Normal >=60 [facility] Comment on above: Performed By: #### C LINDA, LIPID, BUN, TSH, ELEC, LIVER ####[facility] [id number] [address]Dr. Tahir Barragan EGFR-NON AF IVORIAN >60 Normal >=60 [facility] Comment on above: Performed By: #### C LINDA, LIPID, BUN, TSH, ELEC, LIVER ####[facility] [id number] [address]Dr. Tahir Barragan ELECTROLYTESon 04-03-2022 Anion gap [Moles/Vol] 9.2 mmol/L Normal [facility] Comment on above: Performed By: #### C LINDA, LIPID, BUN, TSH, ELEC, LIVER #### [facility] [address] [address] [address] Tahir Barragan Chloride [Moles/Vol] 105 mmol/L Normal 98-107 [facility] Comment on above: Performed By: #### C LINDA, LIPID, BUN, TSH, ELEC, LIVER #### [facility] [address] [address] [address] Tahir Barragan CO2 [Moles/Vol] 29.7 mmol/L Normal 21.0-32.0 [facility] [place] Comment on above: Performed By: #### C LINDA, LIPID, BUN, TSH, ELEC, LIVER #### [facility] [address] [address] [address] Tahir Barragan Potassium [Moles/Vol] 3.9 mmol/L Normal 3.5-5.1 [facility] Comment on above: Performed By: #### C LINDA, LIPID, BUN, TSH, ELEC, LIVER #### [facility] [address] [address] [address] Tahir Barragan Sodium [Moles/Vol] 140 mmol/L Normal 136-145 [facility] Comment on above: Performed By: #### C LINDA, LIPID, BUN, TSH, ELEC, LIVER #### [facility] [address] [address] [address] Tahir Barragan GLYCOHEMOGLOBIN A1Con 2021 ADA RECOMMENDATION SEE BELOW Normal The [facility] Comment on above: Result Comment: ADA RECOMMENDED LIMIT 4.0 - 6.0 ADA THERAPEUTIC TARGET < 7.0 ACTION SUGGESTED > 7.0 Performed By: #### A 1C #### [facility] [address] [address] [address] Tahir Barragan Glucose [Mass/Vol] 108 mg/dL Normal [facility] Comment on above: Performed By: #### A 1C #### [facility] [address] [place] [address] Dr. Tahir Barragan HbA1c (Bld) [Mass fraction] 5.4 % Normal 4.5-6.2 [facility] Comment on above: Performed By: #### A 1C #### [facility] [address] [place] [address] Dr. Tahir Barragan LIPID PROFILEon 04-03-2022 CHOL-HDL RATIO NORM SEE BELOW Normal [facility] Comment on above: Result Comment: 3.3 - 4.4 LOW RISK 4.4 - 7.1 AVERAGE RISK 7.1 - 11.0 MODERATE RISK >11.0 HIGH RISK Performed By: #### C LINDA, LIPID, BUN, TSH, ELEC, LIVER #### [facility] [address] [address] [address] Tahir Barragan Cholesterol [Mass/Vol] 177 mg/dL Normal <=200 [facility] Comment on above: Performed By: #### C LINDA, LIPID, BUN, TSH, ELEC, LIVER #### [facility] [address] [address] [address] Tahir Barragan Cholesterol in HDL [Mass/Vol] 69 mg/dL Critically high 40-60 [facility] Comment on above: Performed By: #### C LINDA, LIPID, BUN, TSH, ELEC, LIVER #### [facility] [address] [address] [address] Tahir Barragan Cholesterol in LDL [Mass/Vol] 100.0 mg/dL Normal [facility] Comment on above: Performed By: #### C LINDA, LIPID, BUN, TSH, ELEC, LIVER #### [facility] [address] [address] [address] Tahir Barragan Cholesterol.total/Choles terol in HDL [Mass ratio] 2.6 {ratio} Normal [facility] Comment on above: Performed By: #### C LINDA, LIPID, BUN, TSH, ELEC, LIVER #### [facility] [address] [address] [address] Tahir Barragan HDL NORMAL > or = 60 mg/dl - LOW CARDIOVASCULAR RISK <40 mg/dl - HIGH CARDIOVASCULAR RISK Normal [facility] Comment on above: Performed By: #### C LINDA, LIPID, BUN, TSH, ELEC, LIVER #### [facility] [address] [address] [address] Tahir Barragan LDL CALC NORMAL SEE BELOW Normal [facility] Comment on above: Result Comment: <100 mg/dl OPTIMAL 100 - 129 mg/dl NEAR OR ABOVE OPTIMAL 130 - 159 mg/dl BORDERLINE HIGH 160 - 189 mg/dl HIGH >190 mg/dl VERY HIGH Performed By: #### C LINDA, LIPID, BUN, TSH, ELEC, LIVER #### [facility] [address] [address] [address] Tahir Barragan Triglyceride [Mass/Vol] 40 mg/dL Normal <=150 T [facility] Comment on above: Performed By: #### C LINDA, LIPID, BUN, TSH, ELEC, LIVER #### [facility] [address] [address] [address] Tahir Barragan VLDL CALC 8.0 mg/dL Normal [facility] Comment on above: Performed By: #### C LINDA, LIPID, BUN, TSH, ELEC, LIVER #### [facility] [address] [address] [address] Tahir Barragan LIVER PROFILEon 04-03-2022 Albumin [Mass/Vol] 3.9 g/dL Normal 3.4-5.0 [facility] Comment on above: Performed By: #### C LINDA, LIPID, BUN, TSH, ELEC, LIVER #### [facility] [address] [place] [address] Dr. Tahir Barragan Albumin/Globulin [Mass ratio] 1.1 {ratio} Normal [facility] Comment on above: Performed By: #### C LINDA, LIPID, BUN, TSH, ELEC, LIVER #### [facility] [address] [place] [address] Dr. Tahir Barragan ALP [Catalytic activity/Vol] 78 U/L Normal 46-116 [facility] Comment on above: Performed By: #### C LINDA, LIPID, BUN, TSH, ELEC, LIVER #### [facility] [address] [place] [address] Dr. Tahir Barragan ALT [Catalytic activity/Vol] 16 U/L Normal 14-59 [facility] Comment on above: Performed By: #### C LINDA, LIPID, BUN, TSH, ELEC, LIVER #### [facility] [address] [place] [address] Dr. Tahir Barragan AST [Catalytic activity/Vol] 9 U/L Critically low 15-37 [facility] Comment on above: Performed By: #### C LINDA, LIPID, BUN, TSH, ELEC, LIVER #### [facility] [address] [place] [address] Dr. Tahir Barragan BILI, CONJUGATED 0.1 mg/dL Normal 0.0-0.2 [facility] Comment on above: Performed By: #### C LINDA, LIPID, BUN, TSH, ELEC, LIVER #### [facility] [address] [place] [address] Dr. Tahir Barragan Bilirubin [Mass/Vol] 0.4 mg/dL Normal 0.2-1.0 [facility] Comment on above: Performed By: #### C LINDA, LIPID, BUN, TSH, ELEC, LIVER #### [facility] [address] [place] [address] Dr. Tahir Barragan Globulin (S) [Mass/Vol] 3.5 g/dL Normal T [facility] Comment on above: Performed By: #### C LINDA, LIPID, BUN, TSH, ELEC, LIVER #### [facility] [address] [address] [address] Tahir Barragan Protein [Mass/Vol] 7.4 g/dL Normal 6.4-8.2 [facility] Comment on above: Performed By: #### C LINDA, LIPID, BUN, TSH, ELEC, LIVER #### [facility] [address] [address] [address] Tahir Barragan SED RATE WESTERGRENon 2021 SED RATE 24 mm/hr Critically high <=20 [facility] Comment on above: Performed By: #### S EDR #### [facility] [address] [address] [address] Tahir Barragan TSHon 04-03-2022 TSH 0.848 uIU/mL Normal 0.358-3.740 [facility] Comment on above: Performed By: #### C LINDA, LIPID, BUN, TSH, ELEC, LIVER #### [facility] [address] [address] [address] Tahir Barragan Activated partial thrombopla stin time (aPTT) in platelet poor plasma by coagulation aOrdered By: Damir Laughlin on 10-08-2021 aPTT Coag (PPP) [Time] 30.3 s 25.1-36.5 [facility] Automated epithelial cells c ount in urine sediment (number/area)Ordered By: Damir Laughlin on 10-08-2021 Epithelial cells Auto (Urine sed) [#/Area] None seen [HPF] [facility] Automated erythrocytes count in urine sediment (number/area)Ordered By: Damir Laughlin on 10-08-2021 RBC Auto (Urine sed) [#/Area] None seen [HPF] [facility] Automated leukocytes count i n urine sediment (number/area)Ordered By: Damir Laughlni on 10-08-2021 WBC Auto (Urine sed) [#/Area] None seen [HPF] [facility] Automated urine hyaline cast s count (number/volume)Ordered By: Damir Laughlin on 10-08-2021 Hyaline casts Auto (U) [#/Vol] None seen [LPF] [facility] Basophils Auto (Bld) [#/Vol] Ordered By: Damir Laughlin on 10-08-2021 Basophils (Bld) [#/Vol] 0.1 10*3/uL 0.0-0.2 [facility] Basophils/100 WBC Auto (Bld) Ordered By: Damir Laughlin on 10-08-2021 Basophils/100 WBC (Bld) 1.0 % [facility] Bilirubin Test strip Ql (U)O rdered By: Damir Laughlin on 10-08-2021 Bilirubin Ql (U) Negative Negative [facility] Blood hemoglobin measurement (mass/volume)Ordered By: Damir Laughlin on 10-08-2021 Hemoglobin (Bld) [Mass/Vol] 12.9 g/dL 11.8-15.4 [facility] Blood leukocytes automated c ount (number/volume)Ordered By: Damir Laughlin on 10-08-2021 WBC (Bld) [#/Vol] 7.1 10*3/uL 4.5-11.0 [facility] Body fluid albumin measureme nt (mass/volume)Ordered By: Monroe Whitaker on 10-08-2021 Albumin (Body fld) [Mass/Vol] 4.1 g/dL 3.2-5.5 [facility] Color Auto (U)Ordered By: Bebeto Laughlin on 10-08-2021 Color (U) Yellow Yellow [facility] Creatine kinase [Enzymatic a ctivity/volume] in Serum or PlasmaOrdered By: Monroe Whitaker on 10-08-2021 CK [Catalytic activity/Vol] 123 U/L 22-269 [facility] Creatinine and Glomerular fi ltration rate.predicted panel (S/P/Bld)Ordered By: Monroe Whitaker on 10-08-2021 Creatinine [Mass/Vol] 0.78 mg/dL 0.44-1.03 [facility] Eosinophils Auto (Bld) [#/Vo l]Ordered By: Damir Laughlin on 10-08-2021 Eosinophils (Bld) [#/Vol] 0.4 10*3/uL 0.0-0.45 [facility] Eosinophils/100 WBC Auto (Bl d)Ordered By: Damir Laughlin on 10-08-2021 Eosinophils/100 WBC (Bld) 5.1 % [facility] Erythrocyte distribution wid th Auto (RBC) [Ratio]Ordered By: Damir Laughlin on 10-08-2021 Erythrocyte distribution width (RBC) [Ratio] 15.0 % 11.9-15.3 [facility] Erythrocyte sedimentation ra te by Photometric methodOrdered By: Damir Laughlin on 10-08-2021 ESR Photometric method (Bld) [Velocity] 15 mm/hr 0-19 [facility] Estimated glomerular filtrat ion rate (GFR) non- AmericanOrdered By: Monroe Whitaker on 10-08-2021 GFR/1.73 sq M.predicted among non-blacks MDRD (S/P/Bld) [Vol rate/Area] > 60 mL/Min [facility] Globulin Calc (S) [Mass/Vol] Ordered By: Monroe Whitaker on 10-08-2021 Globulin (S) [Mass/Vol] 2.2 g/dL [facility] Glucose mean value [Mass/vol ume] in Blood Estimated from glycated hemoglobinOrdered By: Monroe Whitaker on 10-08-2021 Average glucose Estimated from glycated hemoglobin (Bld) [Mass/Vol] 108 mg/dL [facility] Hematocrit Auto (Bld) [Volum e fraction]Ordered By: Damir Laughlin on 10-08-2021 Hematocrit (Bld) [Volume fraction] 38.6 % 34.0-46.4 [facility] Hemoglobin A1c percentageOrd ered By: Monroe Whitaker on 10-08-2021 HbA1c (Bld) [Mass fraction] 5.4 % 4.3-5.6 [facility] Comment on above: Increased risk for d iabetes: 5.7 - 6.4 diabetes: >6.4 glycemic control for adults with diabetes: <7.0 Ketones Auto test strip (U) [Mass/Vol]Ordered By: Damir Laughlin on 10-08-2021 Ketones (U) [Mass/Vol] Negative [facility] Coagulation[facility] red By: Damir Laughlin on 10-08-2021 PT Coag (PPP) [Time] 11.7 s 9.0-12.9 [facility] - Hematology and Cell countsOrdered By: Damir Laughlin on 10-08-2021 Nucleated RBC/100 WBC (Bld) [Ratio] 0.0 % 0-0.5 [facility] Lymphocytes Auto (Bld) [#/Vo l]Ordered By: Damir Laughlin on 10-08-2021 Lymphocytes (Bld) [#/Vol] 2.2 10*3/uL 1.00-4.8 [facility] Lymphocytes/100 WBC Auto (Bl d)Ordered By: Damir Laughlin on 10-08-2021 Lymphocytes/100 WBC (Bld) 31.5 % [facility] MCH Auto (RBC) [Entitic mass ]Ordered By: Damir Laughlin on 10-08-2021 MCH (RBC) [Entitic mass] 30.2 pg 24.7-34.3 [facility] MCHC Auto (RBC) [Mass/Vol]Or dered By: Damir Laughlin on 10-08-2021 MCHC (RBC) [Mass/Vol] 33.3 g/dL 32.0-35.0 [facility] MCV Auto (RBC) [Entitic vol] Ordered By: Damir Laughlin on 10-08-2021 MCV (RBC) [Entitic vol] 90.7 fL 80-100 F [facility] Monocytes Auto (Bld) [#/Vol] Ordered By: Damir Laughlin on 10-08-2021 Monocytes (Bld) [#/Vol] 0.5 10*3/uL 0.0-0.8 [facility] Monocytes/100 WBC Auto (Bld) Ordered By: Damir Laughlin on 10-08-2021 Monocytes/100 WBC (Bld) 7.5 % [facility] Neutrophils Auto (Bld) [#/Vo l]Ordered By: Damir Laughlin on 10-08-2021 Neutrophils (Bld) [#/Vol] 3.9 10*3/uL 1.8-7.7 [facility] Neutrophils/100 WBC Auto (Bl d)Ordered By: Damir Laughlin on 10-08-2021 Neutrophils/100 WBC (Bld) 54.9 % [facility] Nitrite Test strip Ql (U)Ord ered By: Damir Laughlin on 10-08-2021 Nitrite Ql (U) Negative Negative [facility] No Panel InformationOrdered By: Monroe Whitaker on 10-08-2021 Estimated GFR () > 60 mL/Min [facility] Comment on above: GFR estimated refere nce range: According to KDOQI guidelines, <60 ml/min/1.73m2 is sufficient to diagnose a patient with chronic kidney disease. Pharmacy Creatinine Clearance (Chem N/A [facility] Platelet mean volume Auto (B ld) [Entitic vol]Ordered By: Damir Laughlin on 10-08-2021 Platelet mean volume (Bld) [Entitic vol] 9.7 fL 6.3-10.7 [facility] Platelet poor plasma interna tional normalized ratio (INR) by coagulation assay (relatOrdered By: Damir Laughlin on 10-08-2021 INR Coag (PPP) [Relative time] 1.0 {INR} [facility] Comment on above: INR Therapeutic Rang [...] 10-08-2021 Platelets (Bld) [#/Vol] 226 10*3/uL 150-450 [facility] Protein Auto test strip (U) [Mass/Vol]Ordered By: Damir Laughlin on 10-08-2021 Protein (U) [Mass/Vol] Negative Negative Fi [facility] Protein [Mass/volume] in Ser um or PlasmaOrdered By: Monroe Whitaker on 10-08-2021 Protein [Mass/Vol] 6.3 g/dL 6.1-7.9 [facility] RBC Auto (Bld) [#/Vol]Ordere d By: Damir Laughlin on 10-08-2021 RBC (Bld) [#/Vol] 4.25 10*6/uL 3.60-5.00 [facility] Serum or plasma C reactive p rotein measurement (mass/volume)Ordered By: Damirclaudine Laughlin on 10-08-2021 CRP [Mass/Vol] 0.5 mg/dL 0.0-1.0 [facility] Serum or plasma alanine rivera otransferase measurement without P-5'-P (enzymatic activiOrdered By: Monroe Whitaker on 10-08-2021 ALT No additional P-5'-P [Catalytic activity/Vol] 20 U/L 10-60 [facility] Serum or plasma albumin/glob ulin mass ratioOrdered By: Monroe Whitaker on 10-08-2021 Albumin/Globulin [Mass ratio] 1.9 {ratio} [facility] Serum or plasma alkaline marya sphatase measurement (enzymatic activity/volume)Ordered By: Monroe Whitaker on 10-08-2021 ALP [Catalytic activity/Vol] 48 U/L 32-92 [facility] Serum or plasma aspartate am inotransferase measurement (enzymatic activity/volume)Ordered By: Monroe Whitaker on 10-08-2021 AST [Catalytic activity/Vol] 17 U/L 10-42 [facility] Serum or plasma calcium marcy urement (mass/volume)Ordered By: Monroe Whitaker on 10-08-2021 Calcium [Mass/Vol] 9.2 mg/dL 8.2-10.2 [facility] Serum or plasma chloride fabiola surement (moles/volume)Ordered By: Monroe Whitaker on 10-08-2021 Chloride [Moles/Vol] 105 mmol/L 95-114 [facility] Serum or plasma glucose marcy urement (mass/volume)Ordered By: Monroe Whitaker on 10-08-2021 Glucose [Mass/Vol] 92 mg/dL 70-100 [facility] Comment on above: ADA recommended refe rence range Random Glucose Reference Range is dependent on time and content of last meal. Glucose of more than 200 mg/dL in a nonstressed, ambulatory subject supports the diagnosis of Diabetes Mellitus. Serum or plasma potassium me asurement (moles/volume)Ordered By: Monroe Whitaker on 10-08-2021 Potassium [Moles/Vol] 4.0 mmol/L 3.5-5.1 [facility] Serum or plasma sodium measu rement (moles/volume)Ordered By: Monroe Whitaker on 10-08-2021 Sodium [Moles/Vol] 138 mmol/L 136-146 [facility] Serum or plasma total biliru bin measurement (mass/volume)Ordered By: Monroe Whitaker on 10-08-2021 Bilirubin [Mass/Vol] 0.7 mg/dL 0.3-1.2 [facility] Serum or plasma total carbon dioxide measurement (moles/volume)Ordered By: Monroe Whitaker on 10-08-2021 CO2 [Moles/Vol] 22.1 mmol/L 22.0-30.0 [facility] Serum or plasma urea nitroge n measurement (mass/volume)Ordered By: Monroe Whitaker on 10-08-2021 Urea nitrogen [Mass/Vol] 15 mg/dL 9-23 [facility] Specific gravity Auto test s trip (U) [Rel density]Ordered By: Damir Laughlin on 10-08-2021 Specific gravity (U) [Rel density] 1.005 1.001-1.030 [facility] TSH DL <= 0.005 mIU/L QnOrde red By: Damir Laughlin on 10-08-2021 TSH Qn 0.65 m[IU]/L 0.45-5.33 [facility] Thyroxine (T4) free [Mass/vo lume] in Serum or PlasmaOrdered By: Damir Laughlin on 10-08-2021 Free T4 [Mass/Vol] 1.29 ng/dL 0.61-1.12 [facility] Urine bacteria detection by automated methodOrdered By: Damir Laughlin on 10-08-2021 Bacteria Auto Ql (U) None seen None Seen [facility] Urine clarity by refractomet ry automatedOrdered By: Damir Laughlin on 10-08-2021 Clarity Refractometry automated (U) Clear Clear [facility] Urine glucose measurement by automated test strip (mass/volume)Ordered By: Damir Laughlin on 10-08-2021 Glucose Auto test strip (U) [Mass/Vol] Normal mg/dL Normal [facility] Urine hemoglobin detection b y automated test stripOrdered By: Damir Laughlin on 10-08-2021 Hemoglobin Auto test strip Ql (U) Negative Negative [facility] Urine leukocyte esterase det ection by automated test stripOrdered By: Damir Laughlin on 10-08-2021 Leukocyte esterase Auto test strip Ql (U) Negative Negative [facility] Urobilinogen Auto test strip (U) [Mass/Vol]Ordered By: Damir Laughlin on 10-08-2021 Urobilinogen (U) [Mass/Vol] Normal mg/dL Normal [facility] pH Auto test strip (U)Ordere d By: Damir Laughlin on 10-08-2021 pH (U) 7.5 [pH] 5.0-9.0 [facility] Encounters Encounter Date Encounter Type Care Provider Facility Start: 06-13-2024 End: 06-13-2024 Bamboo flowsheet Talon Treva DO Work Phone: [facility] Start: 06-13-2024 End: 06-13-2024 Bamboo flowsheet Talon Treva DO Work Phone: [facility] Start: 11-03-2023 End: 11-03-2023 ambulatory ANTIONETTE RICE Not Available Start: 06-09-2023 End: 06-09-2023 ambulatory SAVANNAH BARRAGAN Not Available Start: 01-18-2023 End: 01-18-2023 ambulatory Monroe Whitaker Facility:[facility] Start: 01-18-2023 End: 01-18-2023 ambulatory JR Monroe Whitaker Work Phone: [facility] Work Phone: Start: 01-18-2023 End: 01-18-2023 Patient encounter procedure JR Monroe Whitaker Work Phone: [facility] [address] Work Phone: Start: 01-04-2023 ambulatory MONROE WHITAKER Facility :[facility] Start: 05-06-2022 End: 05-07-[address] DELGADO BINGHAM Facility:[facility] Start: 04-28-2022 End: 04-28-[address] DELGADO BINGHAM Facility:[facility] Start: 04-07-2022 Encounter for genera l adult medical examination without abnormal findings DR MONROE WHITAKER [facility] Start: 04-03-2022 End: 04-04-[address] MONROE WHITAKER Facility:[facility] Start: 04-03-2022 End: 04-04-2022 Encounter for general adult medical examination without abnormal findings DR MONROE WHITAKER Facility:[facility] Start: 12-09-2021 End: 12-10-2021 ambulatory NIKKI KENNEY Facility:[facility] Start: 10-08-2021 End: 10-08-2021 Patient encounter procedure MD Emmanuel Laughlin Work Phone: [facility] [address] Start: 09-30-2021 End: 09-30-2021 Patient encounter procedure MD Emmanuel Laughlin Work Phone: [facility] [address] Procedures Date Procedure Procedure Detail Performing Clinician Start: 05-31-2024 Mammography Talon olson DO Work Phone: Start: 06-09-2023 Microscopic observat ion [Identifier] in Cervix by Cyto stain Talon Bellao DO Work Phone: Start: 10-01-2021 Plain chest X-ray MD Bebeto Laughlin Work Phone: Plan of Treatment Date Care Activity Detail Author Start: 06-09-2028 Screening for malign ant neoplasm of cervix [facility] Start: 05-31-2025 Screening for malign ant neoplasm of breast Mammogram [facility] Start: 11-01-2024 End: 11-01-2024 Patient encounter procedure 11/01/2024 9:00 AM EDT Office Visit [facility] [address] [place] [address] Antionette Rice PA [address] [place], [place] [id number] [facility] Start: 06-13-2024 End: 06-13-2024 Patient encounter procedure 06/13/2024 8:30 AM EST Office Visit [facility] [address] [place] [address] Talon Tilley, DO [address] [place] [address] Arrived [facility] Comment on above: Arrived Start: 01-23-2024 Influenza vaccination Influenz a Vaccine (#1) [facility] Start: 1980 Screening for malign ant neoplasm of colon [facility] Aldolase measurement [facility] Work Phone: aPTT.lupus sensitive (LA screen) [facility] Work Phone: aPTT.lupus sensitive W excess phospholipid actual/Normal (normalized LA confirm) [facility] Work Phone: aPTT.lupus sensitive/aPTT.lupus sensitive W excess phospholipid (screen to confirm ra [facility] Work Phone: Chromatin Ab [Units/volume] in Serum or Plasma [facility] Work Phone: Complement C3 [Mass/volume] in Serum or Plasma [facility] Work Phone: Complement C4 [Mass/volume] in Serum or Plasma [facility] Work Phone: dRVVT (LA screen) [facility] Work Phone: Hemolytic complement CH50 level [facility] Work Phone: Homogenous nuclear A b pattern [Titer] in Serum [facility] Work Phone: Lupus anticoagulant [Interpretation] in Platelet poor plasma [facility] Work Phone: Myoglobin [Mass/volu me] in Serum or Plasma [facility] Work Phone: Nuclear Ab [Titer] i n Serum [facility] Work Phone: Reagin Ab [Presence] in Serum by RPR [facility] Work Phone: Thrombin time [facility] Work Phone: Thyroglobulin Ab [Units/volume] in Serum or Plasma [facility] Work Phone: Thyroperoxidase Ab [Units/volume] in Serum or Plasma [facility] Work Phone: Immunizations Immunization Date Immunization Notes Care Provider Fa cilimark 03-27-2023 influenza virus vacc ine, unspecified formulation Talonike Bellao DO Work Phone: [facility] Payers Date Payer Category Payer Self-pay [id number] [address] [facility] er [id number] 1980 Unknown [id number] 1978 Unknown [id number] [id number] 1978 Unknown [id number] [id number] 1978 Unknown [id number] [id number] 1978 Unknown [id number] [id number] 1978 Unknown [id number] [id number] 1959 Unknown [id number] 1961 Unknown [id number] Unknown Margot BC/BS [id number] Unknown [id number] [id number] Social History Date Type Detail Facility Tobacco smoking status [facility] own if ever smoked [facility] Work Phone: Start: 1980 Sex Assigned At Female F [facility] Start: 06-07-2023 Tobacco smoking status [facility] Ne eli smoked tobacco [facility] Start: 11-03-2023 Alcoholic beverage intake [...] Sex assigned at Not on file N [facility] Clinical Note 12-10-2021 Note Date & Type [...] authenticated by: ABDIEL LIN Date: 2021-12-10 07:26 [facility] Evaluation note Note Date & Type [...] Active Damir Laughlin MD Attending Provider Active Control Supervisor Relationship Specialty Start Date End Date Monroe Whitaker MD [address] [place] [address] PCP - General Internal Medicine 06/09/23 Goals (unrecognized section and content) Goals may be documented in a n alternate sectionGoals may be documented in an alternate sectionGoals may be documented in an alternate section INFORMATION SOURCE (unrecogn ized section and content) DATE CREATED AUTHOR 05/15/2022 [facility] DATE CREATED AUTHOR AUTHOR'S ORGANIZ ATION 01/07/2023 [facility] DATE CREATED AUTHOR AUTHOR'S ORGANIZ ATION 01/29/2023 [facility] DATE CREATED AUTHOR AUTHOR'S ORGANIZ ATION 11/04/2023 [facility] EPIC FOR RECORDS [...] BE BASED ON THE PRIMARY CLINICAL RECORDS. [place] [facility]. provides no warranty or guarantee of the accuracy or completeness of information in this document.
[2024-06-14 10:58] LABS: Basophils Absolute Auto 0.1 10^3/uL (0.0-0.1); Eosinophils Absolute Auto 0.2 10^3/uL (0.0-0.7); Eosinophils Percent Auto 2.7 % (0.9-7.0); Hematocrit 46.5 % (36.0-48.0); Hemoglobin 15.5 g/dL (12.0-16.0); Immature Granulocytes Abs Auto 0.03 10^3/uL (0.00-0.03); Immature Granulocytes Pct Auto 0.4 % (0.0-0.5); Lymphocytes Absolute Auto 2.3 10^3/uL (1.2-3.8); Lymphocytes Percent Auto 31.5 % (20.5-60.0); Mean Corpuscular HGB Conc 33.3 g/dL (29.9-35.2); Mean Corpuscular Hemoglobin 31.5 pg (26.7-34.0); Mean Corpuscular Volume 94.5 fL (81.0-99.0); Monocytes Absolute Auto 0.6 10^3/uL (0.3-0.8); Neutrophils Absolute Auto 4.1 10^3/uL (1.4-6.5); Neutrophils Percent Auto 56.4 % (43.0-75.0); Platelet Count 172 10^3/uL (150-450); Red Blood Count 4.92 10^6/uL (4.20-5.40); Red Cell Distribution Width 14.4 % (11.0-15.0); White Blood Count 7.3 10^3/uL (4.0-11.0)
[2024-06-14 11:19] LABS: Estimated Average Glucose 103 mg/dL; Glycohemoglobin A1C 5.2 % (4.5-6.2)
[2024-06-14 11:54] LABS: Alanine Aminotransferase 26 U/L (14-59); Albumin Level 3.8 g/dL (3.4-5.0); Alkaline Phosphatase 54 U/L (46-116); Anion Gap 12.7; Aspartate Amino Transferase 34 U/L (15-37); Bilirubin Direct 0.1 mg/dL (0.0-0.2); Bilirubin Total 0.6 mg/dL (0.2-1.0); Carbon Dioxide 28.3 mmol/L (21.0-32.0); Chloride 107 mmol/L (98-107); Cholesterol 183 mg/dL (<=200); Estimated GFR (African America >60 (>=60 mL/min/1.73m^2); Estimated GFR (Non-African Ame >60 (>=60 mL/min/1.73m^2); Globulin 3.7 g/dL; HDL Cholesterol 91 mg/dL (40-60); Sodium 143 mmol/L (136-145); Total Protein 7.5 g/dL (6.4-8.2); Triglycerides 31 mg/dL (<=150); VLDL CHOLESTEROL 6.2 mg/dL
== END 2024-06-14 10:40 | disposition home or self-care (01) ==
LOC: LAB 10:40
PROVIDERS: PCP Internal Medicine; Visit Provider Internal Medicine
DX: Z00.00 Encounter for general adult medical examination without abnormal findings (principal); E55.9 Vitamin D deficiency, unspecified; I50.30 Unspecified diastolic (congestive) heart failure
CPT/HCPCS: 36415; 80051; 80061; 80076; 82565; 83036; 83880; 84443; 84520; 85025

== ENCOUNTER 2025-01-30 11:49 | Outpatient (OUT) | payer BC, SELFPAY ==
--- OUTSIDE RECORDS SUMMARY | 2025-01-30 11:57 | XMS_ITS | CCD ---
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 Name Role Phone MD Emmanuel Laughlin Attending Provider [phone] NO FAMILY, PHYSICIAN Primary Care Provider Unava ilable JR Monroe Whitaker Primary Care Provider OTILIA, DR NATARAJAN Attending Unavailable KARASIK, DR NATARAJAN Consulting Unavailable VALONE, DR JOHNSON Primary Care Unavailable KARASIK, DR NATARAJAN Admitting Unavailable KARASIK, DR NATARAJAN Admitting Unavailable KARASIK, DR NATARAJAN Attending Unavailable KARASIK, DR NATARAJAN Consulting Unavailable VALONE, DR JOHNSON Primary Care Unavailable ZIEBANGELA, DR ROGELIO Reynoso Consulting Unavailable VALONE, DR JOHNSON Admitting Unavailable VALONE, DR JOHNSON Attending Unavailable VALONE, DR JOHNSON Consulting Unavailable VALONE, DR JOHNSON Primary Care Unavailable ANNE MARIE, NIKKI Admitting Unavailable ANNE MARIE, NIKKI Attending Unavailable VALONE, DR JOHNSON Primary Care Unavailable TAYLOR, DR ROGELIO Reynoso Consulting Unavailable ANNE MARIE, NIKKI Consulting Unavailable MONROE WHITAKER Referring Unavailable Bobby ROEBRT Attending Unavailable JR Monroe Whitaker Primary Care Provider MD Damir Laughlin Attending Provider Monroe Whitaker Primary Care Unavailable Damir Laughlin Attending Unavailable Damir Laughlin Admitting Unavailable Mnoroe Whitaker MD Primary Care Provider [phone] MARIA RICE Attending Unavailable TALON TILLEY Attending Unavailable Migel Polanco MD Unavailable Monroe Whitaker DO Primary Care Provider [phone] Gorge ARANGO, Alanna Glover Unavailable Catracho GONZALEZ, [place] Unavailable Unavailab YANET Irene Attending Unavailable MIGEL POLANCO Referring Unavailable MONROE WHITAKER Primary Care Unavailable LION, YANET S Attending Unavailable VALONE, MONROE L Primary Care Unavailable GORGE, IRIS Y Attending Unavailable LION, YANET S Referring Unavailable VALONE, MONROE L Primary Care Unavailable GORGE, IRIS Y Referring Unavailable VALONE, MONROE L Primary Care Unavailable GORGE, IRIS Y Attending Unavailable GORGE, IRIS Y Referring Unavailable VALONE, MONROE L Primary Care Unavailable GORGE, IRIS Y Attending Unavailable VALONE, MONROE L Primary Care Unavailable GORGE, IRIS Y Referring Unavailable VALONE, MONROE L Primary Care Unavailable VALONE, MONROE L Primary Care Unavailable GORGE, IRIS Y Attending Unavailable GORGE, IRIS Y Referring Unavailable VALONE, MONROE L Primary Care Unavailable LION, YANET S Admitting Unavailable LION, YANET S Attending Unavailable MIGEL POLANCO Referring Unavailable VALONE, MONROE L Primary Care Unavailable LION, YANET S Referring Unavailable VALONE, MONROE L Primary Care Unavailable LION, YANET S Referring Unavailable VALONE, MONROE L Primary Care Unavailable HARSHA OJEDA Attending Unavailable GORGE, IRIS Y Referring Unavailable VALONE, MONROE L Primary Care Unavailable HARSHA OJEDA Admitting Unavailable HARSHA OJEDA Attending Unavailable VALONE, MONROE L Primary Care Unavailable VALONE, MONROE L Primary Care Unavailable OJEDA, BOXIANG Referring Unavailable VALONE, MONROE L Primary Care Unavailable OJEDA BOXIANG Attending Unavailable VALONE, MONROE L Primary Care Unavailable Valone JR Monroe L Primary Care Provider Maria Flowers APRN Attending Provider Allergies Allergy Classification Reported Allergen(s) Allergy Type Date of Onset Reaction(s) Facility (1 source) No Known Medication Allergies; Translations: [No Known Medication Allergies] Propensity to adverse reactions (disorder) [facility] Medications Current Medications Medication Drug Class(es) Dates Sig (Normalized) Sig (Original) acetaminophen 325 mg oral tablet (2 sources) Start: 11-20-2024 take 1 tablet by mouth every six hours 650 mg, oral, Every 6 hours, First dose on Wed11/20/24 at 2044, If ordered PRN for pain, nurse is permitted to administer this medication for higher pain scores based on patient preference? Yes albuterol 0.83 mg/ml inhalation solution (1 source) beta2-Adrenergic Agonist Start: 11-20-2024 take 2.5 mg by inhalation every six hours as needed 24 hr amphetamine aspartate 2.5 mg / amphetamine sulfate 2.5 mg / dextroamphetamine saccharate 2.5 mg / dextroamphetamine sulfate 2.5 mg extended release oral capsule (4 sources) Central Nervous System Stimulant take 1 capsule by mouth in the morning, then take 1 capsule by mouth every twenty-four hours amphetamine-dext roamphetamine XR (Adderall XR) 10 MG 24 hr capsule Take 10 mg by mouth in the morning. Active ascorbic acid 100 mg oral tablet (5 sources) Vitamin C Start: 01-16-2025 take 1 tablet by mouth once daily Ascorbic Acid (Vitamin C) 100 mg tablet Active 100 MG PO Daily January 16, 2025 12:00am Complies with drug therapy ascorbic acid (V itamin C) 100 MG chewable tablet Vitamin C Active B Complex capsule (4 sources) B Complex capsule as directed Orally Active B complex-vitamin C-folic acid (Nephro-Akira Rx) 1-60-300 mg-mg-mcg tablet (16 sources) take 1 tablet by mouth once daily at breakfast B complex-vitamin C-folic acid (Nephro-Akira Rx) 1-60-300 mg-mg-mcg tablet Take 1 tablet by mouth once daily with breakfast. Active benzocaine 15 mg / menthol 3.6 mg oral lozenge (1 source) Standardized Chemical Allergen Start: 11-21-19 25 biotin 5 mg disintegrating oral tablet (5 sources) Start: 01-17-20 25 Biotin 5,000 mcg tablet,disintegr ating Active MCG PO January 16, 2025 12:00am Complies with drug therapy Start: 10-22-2022 take 1 tablet by lopez th in the morning Biotin 5000 MCG sublingual tablet Take 1 tablet by mouth in the morning. 10/22/2022 Active calcitriol 0.0005 mg oral capsule (3 sources) Vitamin D3 Analog take 1 capsule by mouth once daily calcitriol (Rocaltrol) 0.5 MCG capsule Take 0.5 mcg by mouth Daily Active cetirizine hydrochloride 10 mg oral capsule (5 sources) Histamine-1 Receptor Antagonist Start: take 1 capsule by mouth once daily as needed Cetirizine (Zyrtec) 10 mg capsule Active 10 MG PO Daily as needed January 16, 2025 12:00am Complies with drug therapy cetirizine (ZyrT EC) 10 MG chewable tablet 1 (one) time each day at the same time Active cholecalciferol 0.05 mg oral capsule (18 sources) Vitamin D Start: 01-16-2025 take 1 capsule by mouth once daily Cholecalciferol (Vitamin D3) 50 mcg (2,000 unit) capsule Active 50 MCG PO Daily January 16, 2025 12:00am Complies with drug therapy Start: 11-20-2024 take 25 ug by mouth once daily 25 mcg, oral, Daily, First dose on Wed11/20/24 at 1130, Phase II/On Unit take 1 tablet by lopez th once daily cholecalciferol (Vitamin D3) 25 mcg (1000 units) tablet Take 1 tablet (1,000 Units) by mouth once daily. Active chromium picolinate 0.1 mg / inulin 2000 mg chewable tablet (1 source) Start: 01-16-2025 Inulin-Chromium Picolinate (Fiber Select Gummies) 2-100 gram-mcg tablet,chewable Active TAB PO January 16, 2025 12:00am Complies with drug therapy COLLAGEN-VITAMIN C-BIOTIN PO (4 sources) COLLAGEN-VITAMIN C-BIOTIN PO Take by mouth Active Dextromethorphan-Bu propion (1 source) Start: 01-16-2025 take 1 tablet by mouth twice daily Dextromethorphan-B upropion (Auvelity) 45-105 mg tablet, IR and ER, biphasic Active 1 TAB PO Twice daily January 16, 2025 12:00am Complies with drug therapy diphenhydrAMINE (1 source) Histamine-1 Receptor Antagonist Start: 11-20-2024 take 25 mg intravenously every six hours as needed 25 mg, intravenous, Every 6 hours PRN, itching, Starting on Wed11/20/24 at 1100, Phase II/On Unit docusate sodium 100 mg oral capsule (1 source) Start: 11-20-2024 take 100 mg by mouth twice daily for constipation 100 mg, oral, 2 times daily, First dose on Wed11/20/24 at 1130, Phase II/On Unit, Bowel Regimen - for prevention of constipation DULoxetine 60 mg delayed release oral capsule (20 sources) Serotonin and Norepinephrine Reuptake Inhibitor Start: 01-16-2025 take 1 capsule by mouth once daily at bedtime Duloxetine 60 mg capsule,delayed release(DR/EC) Active 60 MG PO Daily at bedtime January 16, 2025 12:00am Complies with drug therapy Start: 11-20-2024 take 60 mg by mouth once daily 60 mg, oral, Daily, First dose on Wed11/20/24 at 1130, Phase II/On Unit, Do not crush or chew. take 1 capsule by mo uth once daily DULoxetine (Cymbalta) [address] capsule Take 1 capsule (60 mg) by mouth once daily. Do not crush or chew. Active estradiol 1 mg oral tablet (20 sources) Estrogen Start: 01-16-2025 take 1 tablet by mouth twice daily Estradiol 1 mg tablet Active 1 MG PO Twice daily January 16, 2025 12:00am Complies with drug therapy Start: 11-20-2024 take 1 mg by mouth twice daily 1 mg, oral, 2 times daily, First dose on Wed11/20/24 at 1130, Phase II/On Unit Start: 05-19-2024 take 1 tablet by lopez th once daily estradiol (Estrace) 1 MG tablet Indications: Vaginal dryness TAKE 1 TABLET BY MOUTH EVERY DAY 90 tablet 3 05/19/2024 Active etodolac 500 mg oral tablet (4 sources) Nonsteroidal Anti-inflammatory Drug Start: 04-26-2023 take 1 tablet by mouth every other day etodolac (Lodine) 500 MG tablet Take 500 mg by mouth Daily Patient states she is taking 1 every other day 04/26/2023 Active famciclovir 500 mg oral tablet (20 sources) Herpes Simplex Virus Nucleoside Analog DNA Polymerase Inhibitor Start: 01-16-2025 take 1 tablet by mouth once Famciclovir 500 mg tablet Active 500 MG PO Once January 16, 2025 12:00am Complies with drug therapy Start: 11-20-2024 take 500 mg by mouth once pavan y 500 mg, oral, Daily, First dose on Wed11/20/24 at 1130, Phase II/On Unit, Coverage: Herpes simplex, Infection Site: Prophylaxis Start: 05-01-2023 take 1 tablet by lopez th every other day famciclovir (Famvir) 500 MG tablet Take 500 mg by mouth Daily States she is taking 1 every other day 05/01/2023 Active take 1 tablet by lopez th three times daily famciclovir (Famvir) 500 mg tablet Take 1 tablet (500 mg) by mouth 3 times a day. Active famotidine 40 mg oral tablet (20 sources) Histamine-2 Receptor Antagonist Start: 01-16-2025 take 1 tablet by mouth once daily Famotidine 40 mg tablet Active 40 MG PO Daily January 16, 2025 12:00am Complies with drug therapy Start: 11-20-2024 take 40 mg by mouth once daily 40 mg, oral, Daily, First dose on Wed11/20/24 at 1130, Phase II/On Unit Start: 04-08-2023 take 1 tablet by lopez th at bedtime famotidine (Pepcid) 40 MG tablet Take 40 mg by mouth at bedtime 04/08/2023 Active Fiber Select Gummies chewable tablet (4 sources) Fiber Select Gum mies chewable tablet as directed Orally Active fluticasone propionate 0.05 mg/actuat metered dose nasal spray (5 sources) Corticosteroid Start: 01-16-2025 take 1 spray(s) nasal route once daily Fluticasone Propionate 50 mcg/actuation spray,suspension Active 1 SPRAY INTRANASAL Daily January 16, 2025 12:00am administer into each nostril Complies with drug therapy take 1 spray(s) nasa l route in the morning fluticasone (Flonase) 50 MCG/ACT nasal spray Administer 1 spray into each nostril in the morning. Shake gently. Before first use, prime pump. After use, clean tip and replace cap.. Active gabapentin 300 mg oral capsule (1 source) Anti-epileptic Agent Start: 11-20-2024 take 1 capsule by mouth every eight hours 300 mg, oral, Every 8 hours scheduled, First dose on Wed11/20/24 at 2200, Capsules may be opened and sprinkled on food (eg, applesauce, orange juice, pudding 1 ml heparin sodium, porcine 5000 unt/ml injection (2 sources) Unfractionated Heparin, Anti-coagulant Start: 11-20-2024 inject 5000 [IU] by subcutaneous injection every eight hours 5,000 Units, subcutaneous, Every 8 hours, First dose on Wed11/20/24 at 2100, Phase II/On Unit Start: 11-20-2024 End: 11-20-2024 inject 5000 [IU] by subcutaneous injection once 5,000 Units, subcutaneous, Once, On Wed11/20/24 at 0615, For 1 dose, Preprocedure, Given in preop, Indications: deep vein thrombosis prevention 0.5 ml HYDROmorphone hydrochloride 1 mg/ml prefilled syringe (3 sources) Opioid Agonist Start: 11-20-2024 0.5 mg, intrav enous, Every 2 hour PRN, pain severe (7-10), second line, pain breakthrough, Starting on Wed11/20/24 at 1100, Phase II/On Unit Start: 11-20-2024 End: 11-20-2024 0.5 mg, intravenous, Every 5 min PRN, pain severe (7-10), first line, Starting on Wed11/20/24 at 0920, Recovery (only), Max total of 4 mg regardless of dose. Start: 08-07-2024 0.5 mg, intrav enous, Every 5 min PRN, pain severe (7-10), first line, Starting on Wed08/07/24 at 1129, For 3 doses, Recovery (only), Max total of 4 mg regardless of dose. hydroxychloroquine sulfate 200 mg oral tablet (4 sources) Antimalarial, Antirheumatic Agent take 1 tablet by mouth in the morning hydroxychloroquine (Plaquenil) 200 MG tablet Take 1 tablet by mouth in the morning. Active lidocaine 0.04 mg/mg medicated patch (1 source) Antiarrhythmic, Amide Local Anesthetic Start : 11-20 apply 1 dose transdermal route once daily 1 patch, transdermal, Administer over 12 Hours, Daily, First dose on Wed11/20/24 at 2045, Apply to left chest wall. Patch will remain on for 12 hours, then removed for [address] patch directly over any surgical incisions or wounds. linaclotide 0.072 mg oral capsule (20 sources) Guanylate Cyclase-C Agonist Start : 01-16 take 1 capsule by mouth once daily in the morning Linaclotide (Linzess) 72 mcg capsule Active 72 MCG PO Every morning January 16, 2025 12:00am Complies with drug therapy Start: 12-31-2022 magnesium oxide 400 mg oral tablet (20 sources) Start: 01-16-2025 take 1 tablet by mouth every other day Magnesium Oxide 400 mg magnesium tablet Active 400 MG PO .qod January 16, 2025 12:00am Complies with drug therapy Start: 06-14-2022 take 1 tablet by lopez th once daily 1 tablet (400 mg of magnesium oxide), oral, Daily, First dose on Wed11/20/24 at 1130, Phase II/On Unit mecobalamin 1 mg chewable tablet (1 source) Start: 01-16-2025 take 1 tablet by mouth once daily Mecobalamin (Vitamin B12) 1,000 mcg tablet,chewable Active 1000 MCG PO Daily January 16, 2025 12:00am Complies with drug therapy Meperidine (1 source) Opioid Agonist Start: 08-07-2024 12.5 mg, intravenous, Every 10 min PRN, shivering, Starting on Wed08/07/24 at 1129, Recovery (only) methocarbamol 500 mg oral tablet (2 sources) Muscle Relaxant Start: 11-20-2024 End: 11-21-2024 take 1 tablet by mouth every six hours as needed 500 mg, oral, Every 6 hours PRN, muscle spasms, Starting on Wed11/21/24 at 0540 montelukast 10 mg oral tablet (20 sources) Leukotriene Receptor Antagonist Start: 01-16-2025 take 1 tablet by mouth once daily Montelukast 10 mg tablet Active 10 MG PO Daily January 16, 2025 12:00am Complies with drug therapy Start: 11-20-2024 take 10 mg by mouth once daily 10 mg, oral, Nightly, First dose on Wed11/20/24 at 2100, Phase II/On Unit Multiple Vitamin (Multi Vitamin) tablet (4 sources) Multiple Vitamin (Multi Vitamin) tablet 1 (one) time each day at the same time Active Multiple Vitamins-Minerals (Hair Skin Nails) capsule (4 sources) Multiple Vitamins-Minerals (Hair Skin Nails) capsule as directed Orally Active Multivitamin tablet (1 source) Start: 01-17-20 take 1 tablet by mouth once daily Multivitamin tablet Active 1 TAB PO Daily January 16, 2025 12:00am Complies with drug therapy 2 ml naloxone hydrochloride 1 mg/ml prefilled syringe (1 source) Opioid Antagonist Start: 11-21-19 2 ml ondansetron 2 mg/ml injection (1 source) Serotonin-3 Receptor Antagonist Start: 08-08-19 4 mg, intravenous, Once as needed, nausea/vomiting, first line, Starting on Wed08/07/24 at 1129, For 1 dose, Recovery (only), When administering via IV Push, administer over 3-5 minutes. ondansetron ODT (Zofran-ODT) disintegrating tablet 4 mg (1 source) Start: 11-21-19 take 1 tablet by mouth every six hours as needed ondansetron ODT (Zofran-ODT) disintegrating tablet 4 mg oxyCODONE hydrochloride 5 mg oral tablet (6 sources) Opioid Agonist Start: 11-22-19 take 1 tablet by mouth every six hours for pain oxyCODONE (Roxicodone) 5 mg immediate release tablet Indications: Acute postoperative pain Take 1 tablet (5 mg) by mouth every 6 hours if needed for moderate pain (4 - 6). 28 tablet 11/21/2024 Active Start: 11-20-2024 take 1 tablet by lopez th every four hours as needed 10 mg, oral, Every 4 hours PRN, pain severe (7-10), first line, Starting on Wed11/20/24 at 1100, Phase II/On Unit, If ordered PRN for pain, nurse is permitted to administer this medication for higher pain scores based on patient preference? Yes Start: 11-20-2024 take 1 tablet by lopez th every four hours as needed 5 mg, oral, Every 4 hours PRN, pain moderate (4-6), first line, Starting on Wed11/20/24 at 1100, Phase II/On Unit, If ordered PRN for pain, nurse is permitted to administer this medication for higher pain scores based on patient preference? Yes Start: 08-07-2024 take 1 tablet by lopez th every four hours as needed 5 mg, oral, Every 4 hours PRN, pain mild (1-3), first line, Starting on Wed08/07/24 at 1233, Phase II/On Unit, When able to take oral medications., If ordered PRN for pain, nurse is permitted to administer this medication for higher pain scores based on patient preference? Yes oxygen (O2) therapy (2 sources) Start: 11-20-2024 inhalation, Co ntinuous PRN - O2/gases, other, Starting on Wed11/20/24 at 1100, Phase II/On Unit, Wean oxygen as tolerated, discontinue when room air pulse oximetry measures greater than 90%., Device: Nasal Cannula, Rate in liters per minute: 2 LPM, Keep O2 Sat Above: 90% Start: 08-07-2024 inhalation, Co ntinuous - 02/gases, First dose on Wed08/07/24 at 1145, Recovery (only), Discontinue when criteria met, Device: Nasal Cannula, Rate in liters per minute: 2 LPM, Keep O2 Sat Above: 92% polyethylene glycol 3350 [id number] mg powder for oral solution (1 source) Osmotic Laxative Start: 11-20-2024 promethazine (Phenergan) 6.25 mg in sodium chloride 0.9% 50 mL IV (1 source) Start: 08-07-2024 6.25 mg, intravenous, Administer over 15 Minutes, Once as needed, Nausea/vomiting, second line, Starting on Wed08/07/24 at 1233, For 1 dose, Phase II/On Unit rimegepant 75 mg disintegrating oral tablet (5 sources) Start: 01-16-2025 take 1 tablet by mouth every other week Rimegepant (Nurtec Odt) 75 mg tablet,disintegra ting Active 75 MG PO .COMPLEX January 16, 2025 12:00am 75 mg orally at the onset of a migraine. do not repeat. no more than 2 days/week; Complies with drug therapy Nurtec 75 MG tab let dispersible TAKE 1 TABLET BY MOUTH AT ONSET OF MIGRAINE FOR 30 DAYS Active rosuvastatin calcium 5 mg oral tablet (20 sources) HMG-CoA Reductase Inhibitor Start: 01-16-2025 take 1 tablet by mouth once daily Rosuvastatin 5 mg tablet Active 5 MG PO Daily January 16, 2025 12:00am Complies with drug therapy Start: 11-20-2024 take 5 mg by mouth once daily 5 mg, oral, Daily, First dose on Wed11/20/24 at 2100, Phase II/On Unit take 1 tablet by lopez th once daily rosuvastatin (Crestor) 5 mg tablet Take 1 tablet (5 mg) by mouth once daily. Active traMADol hydrochloride 50 mg oral tablet (2 sources) Opioid Agonist Start: 08-07-2024 End: 08-12-2024 take 1 tablet by mouth twice daily as needed for pain traMADol (Ultram) 50 mg tablet Indications: Melanoma of back (Multi) Take 1 tablet (50 mg) by mouth 2 times a day as needed for severe pain (7 - 10) for up to 5 days. 5 tablet 08/07/2024 08/12/2024 Active Vitamin B Complex tablet (1 source) Start: 01-16-2025 take 1 tablet by mouth once daily Vitamin B Complex tablet Active 1 TAB PO Daily January 16, 2025 12:00am Complies with drug therapy vitamin b12 0.1 mg oral lozenge (4 sources) Vitamin B12 Cyanocobalamin (Vitamin B 12) 100 MCG lozenge as directed Orally Active vitamin e 180 mg oral capsule (20 sources) Start: 01-16-2025 take 1 capsule by mouth once daily Vitamin E (Dl, Acetate) 180 mg (400 unit) capsule Active 180 MG PO Daily January 16, 2025 12:00am Complies with drug therapy Start: 11-20-2024 take 180 mg by mouth once pavan y 180 mg, oral, Daily, First dose on Wed11/20/24 at 1130, Phase II/On Unit take 1 capsule by mouth once jose manuel ly vitamin E 180 mg (400 unit) capsule Take 1 capsule (400 Units) by mouth once daily. Active take 1 capsule by mouth once jose manuel ly vitamin E 180 MG (400 UNIT) capsule Take 180 mg by mouth Daily Active Completed/Discontinued Medications Medication Drug Class(es) Dates Sig (Normalized) Sig (Original) calcium chloride 0.0014 meq/ml / potassium chloride 0.004 meq/ml / sodium chloride 0.103 meq/ml / sodium lactate 0.028 meq/ml injectable solution (3 sources) Start: 11-20-2024 End: 11-20-2024 take 50 mL intravenously every hour 50 mL/hr, intravenous, Continuous, Starting on Wed11/20/24 at 0615, For 1 day Start: 08-07-2024 End: 08-08-2024 take 100 mL intravenously every hour 100 mL/hr, intravenous, Continuous, Starting on Wed08/07/24 at 1145, For 1 day, Recovery (only) ceFAZolin 2000 mg injection (1 source) Cephalosporin Antibacterial Start: 11-20-2024 End: 11-21-2024 take 2 g intravenously every eight hours 2 g, intravenous, at 100 mL/hr, Administer over 30 Minutes, Every 8 hours, First dose on Wed11/20/24 at 1530, For 2 doses, Phase II/On Unit, Duplex bag - activate before hanging., Suspected Indication (Select all that apply): Surgical Prophylaxis, Dosing of this medication varies based on severity of illness. Does this patient have sepsis or concern for sepsis (probable or documented infection plus systemic manifestations of infection)? No, Indications: Surgical Prophylaxis 1 ml fentaNYL 0.05 mg/ml injection (4 sources) Opioid Agonist Start: 11-20-2024 End: 11-20-2024 25 mcg, intravenous, Every 5 min PRN, pain moderate (4-6), first line, Starting on Wed11/20/24 at 0920, Recovery (only), Max total of 200 micrograms regardless of dose., If ordered PRN for pain, nurse is permitted to administer this medication for higher pain scores based on patient preference? Yes Start: 10-09-2024 End: 10-09-2024 intravenous, Once PRN Proced ure, Starting on Wed10/09/24 at 1120, For 1 dose, Intraprocedure Start: 08-07-2024 50 mcg, intrav enous, Every 5 min PRN, pain moderate (4-6), first line, Starting on Wed08/07/24 at 1129, For 3 doses, Recovery (only), Max total of 200 micrograms regardless of dose., If ordered PRN for pain, nurse is permitted to administer this medication for higher pain scores based on patient preference? Yes fludeoxyglucose F-18 injection 14.1 millicurie (1 source) Start: 09-26-2024 End: 09-26-2024 14.1 millicurie, intravenous, Once in imaging, Starting on Wed09/26/24 at 0913, For 1 dose, Administer 60 minutes and up to 3 hours prior to imaging unless otherwise indicated. gadoterate meglumine (Dotarem) 0.5 mmol/mL contrast injection 15 mL (1 source) Start: 09-26-2024 End: 09-26-2024 15 mL (rounded from 15.2 mL = 0.2 mL/kg 76 kg Order-specific weight), intravenous, Once in imaging, Starting on Wed09/26/24 at 1247, For 1 dose, Administer undiluted as rapid I.V. bolus injection 5 ml midazolam 1 mg/ml injection (2 sources) Benzodiazepine Start: 10-09-2024 End: 10-09-2024 intravenous, Once PRN Procedure, Starting on Wed10/09/24 at 1120, For 1 dose, Intraprocedure pantoprazole 40 mg delayed release oral tablet (1 source) Proton Pump Inhibitor Start: 11-21-2024 End: 11-21-2024 take 40 mg by mouth once daily before breakfast 40 mg, oral, Daily before breakfast, First dose on Wed11/21/24 at 0600, Phase II/On Unit, Do not crush, chew, or split. 1000 ml sodium chloride 9 mg/ml injection (1 source) Start: 11-20-2024 End: 11-20-2024 take 1 [IU] by mouth once 100 mL/hr, intravenous, Continuous, Starting on Wed11/20/24 at 1130, For 5 hours, Phase II/On Unit, DC once tolerating oral intake [id number] (Lymphoseek) injection 0.61 millicurie (1 source) Start: 08-07-2024 End: 08-07-2024 0.61 millicurie, intradermal, Once in imaging, Starting on Wed08/07/24 at 0738, For 1 dose, If using for lymphoscintigraphy , administer immediately and up to 15 hours prior to imaging unless otherwise indicated. No imaging for breast injections. Problems Active Problems Problem Classification Problem Date Documented Da te Episodic/Chronic Diabetes mellitus without complication (1 source) Other abnormal glucose; Translations: [OTHER ABNORMAL GLUCOSE] Onset: 2 Episodic Disorders of lipid metabolism (5 sources) Pure hypercholesterolemia, unspecified; Translations: [Hyperlipidemia] Onset: 2 11-19-2024 Chronic Esophageal disorders (16 sources) Gastroesophageal reflux disease without esophagitis; Translations: [Gastro-esophageal reflux disease without esophagitis] Onset: 5 08-07-2024 Chronic Headache; including migraine (9 sources) Migraine, unspecified, not intractable, without status migrainosus; Translations: [Migraine] Onset: 2 Chronic Immunizations and screening for infectious disease (1 source) Encounter for screening for human papillomavirus (HPV); Translations: [ENC SCREENING HUMAN PAPILLOMAVIRUS] Onset: 2 Episodic Melanomas of skin (20 sources) Malignant melanoma of back; Translations: [Malignant melanoma of other part of trunk] Onset: 5 07-18-2024 Chronic Mood disorders (4 sources) Depressive disorder; Translations: [Depression] Onset: 5 11-19-2024 Chronic Nervous system congenital anomalies (4 sources) Neurofibromatosis syndrome; Translations: [Neurofibromatosis, unspecified] 11-02-2023 Chronic Osteoarthritis (1 source) Primary generalized (osteo)arthritis; Translations: [Primary generalized (osteo)arthritis] Onset: 3 Chronic Other aftercare (1 source) 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; Translations: [OTH [facility] CURRENT DRUG THERAPY] Onset: 2 Episodic Other and unspecified benign neoplasm (9 sources) 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; Translations: [Other benign neoplasm of connective and other soft tissue of thorax] Onset: 5 10-19-2024 Episodic Other connective tissue disease (1 source) Myalgia, unspecified site; Translations: [MYALGIA UNSPECIFIED SITE] Onset: 2 Episodic Other gastrointestinal disorders (4 sources) Irritable bowel syndrome; Translations: [Irritable bowel syndrome without diarrhea] Onset: 5 11-19-2024 Chronic Other nervous system disorders (4 sources) Organic sleep-wake cycle disorder; Translations: [Circadian rhythm sleep disorder, unspecified type] Onset: 4 11-02-2023 Chronic Other nervous system disorders (4 sources) Bilateral carpal tunnel syndrome; Translations: [Carpal tunnel syndrome, bilateral upper limbs] Onset: 4 11-02-2023 Chronic Other nervous system disorders (1 source) Acute postoperative pain; Translations: [Other acute postprocedural pain] 11-21-2024 Episodic Other nervous system disorders (4 sources) H/O: migraine; Translations: [Personal history of other diseases of the nervous system and sense organs] Onset: 5 11-19-2024 Episodic Other non-epithelial cancer of skin (4 sources) Malignant neoplasm of skin; Translations: [Unspecified malignant neoplasm of skin, unspecified] Onset: 5 11-19-2024 Episodic Other nutritional; endocrine; and metabolic disorders (16 sources) Obesity caused by energy imbalance; Translations: [Class 1 obesity due to excess calories with body mass index (BMI) of 31.0 to 31.9 in adult] Onset: 5 08-07-2024 Chronic Other screening for suspected conditions (not mental disorders or infectious disease) (8 sources) Encounter for screening mammogram for malignant neoplasm of breast; Translations: [Encounter for screening for malignant neoplasm of cervix] Onset: 2 Episodic Other upper respiratory disease (2 sources) Mediastinal mass; Translations: [Other diseases of mediastinum, not elsewhere classified] 12-08-2024 Episodic Other upper respiratory disease (2 sources) Other diseases of mediastinum, not elsewhere classified; Translations: [Other diseases of mediastinum, not elsewhere classified] Onset: 5 Episodic Residual codes; unclassified (1 source) Family history of malignant neoplasm of breast; Translations: [FAMILY HX MALIG NEOPLASM OF BREAST] Onset: 2 Episodic Residual codes; unclassified (6 sources) Insomnia; Translations: [Insomnia, unspecified] Onset: 4 11-02-2023 Episodic Unclassified (4 sources) Autogenerated Problem Onset: 5 10-19-2024 Past or Other Problems Problem Classification Problem Date Documented Da te Episodic/Chronic Other nervous system disorders (1 source) Personal history of other diseases of the nervous system and sense organs; Translations: [PERSONAL HX OTH DZ NS AND SENSE ORGANS] Onset: 12-10-2021 Episodic Other nervous system disorders (4 sources) Paresthesia; Translations: [Paresthesia of skin] Onset: 11-02-2023 11-02-2023 Episodic Unclassified (11 sources) Onset: 09-06-2024 Resolved: 12-08-2024 09-06-2024 Results Test Name Value Interpretation Reference Range Facility XR CHEST 2 VIEWSon 5 XR CHEST 2 VIEWS Interpreted By: Raquel Sweeney, STUDY: Chest, 2 views. INDICATION: Signs/Symptoms:post-op . COMPARISON: XR CHEST 1 VIEW 11/21/2024. ACCESSION NUMBER(S): [id number] ORDERING CLINICIAN: HARSHA OJEDA FINDINGS: The cardiomediastinal silhouette size is within normal limits. There is no focal consolidation, edema or pneumothorax. No sizeable pleural effusion. HOSPITAL NURSE shunt catheter tubing visualized projecting over the right hemithorax. Right axillary surgical clips. IMPRESSION: 1. No acute cardiopulmonary process. MACRO: None. Signed by: Raquel Sweeney 12/09/2024 8:14 AM Dictation workstation: [id number] Normal [facility] Basic metabolic 2000 panelon 11-21-2024 Anion gap [Moles/Vol] 12 mmol/L 10 - 2 0 mmol/L [facility] Calcium [Mass/Vol] 8.3 mg/dL Low 8.6 - 10. 3 mg/dL [facility] Chloride [Moles/Vol] 103 mmol/L 98 - 10 7 mmol/L [facility] CO2 [Moles/Vol] 26 mmol/L 21 - 32 mmol/L [facility] Creatinine [Mass/Vol] 0.7 mg/dL 0.50 - 1.05 mg/dL [facility] eGFR - PINF [facility] Comment on above: Calculations of iraj mated GFR are performed using the 2020 CKD-EPI Study Refit equation without the race variable for the IDMS-Traceable creatinine methods. https://jasn.asnjournals.org/content/early//ASN.2020 974453 Glucose [Mass/Vol] 100 mg/dL High 74 - 99 mg/dL [facility] Interpretation and review of laboratory results Abnormal [facility] Potassium [Moles/Vol] 3.8 mmol/L 3.5 - 5.3 mmol/L [facility] Sodium [Moles/Vol] 137 mmol/L 136 - 145 mmol/L [facility] Urea nitrogen [Mass/Vol] 9 mg/dL 6 - 23 mg/dL [facility] Anion gap [Moles/Vol] 12 mmol/L Normal 10-20 [facility] Comment on above: Performed By: #### 2 4321-2 #### HARLEEN QUINTANA ([id number]) [facility] ([facility]) [address] [place] [address] Calcium [Mass/Vol] 8.3 mg/dL Low 8.6-10.3 [facility] Comment on above: Performed By: #### 2 4321-2 #### HARLEEN QUINTANA ([id number]) [facility] ([facility]) [address] [place] [address] Chloride [Moles/Vol] 103 mmol/L Normal 98-107 [facility] Comment on above: Performed By: #### 2 4321-2 #### HARLEEN QUINTANA ([id number]) [facility] ([facility]) [address] [place] [address] CO2 [Moles/Vol] 26 mmol/L Normal 21-32 [facility] Comment on above: Performed By: #### 2 4321-2 #### HARLEEN QUINTANA ([id number]) [facility] ([facility]) [address] [place] [address] Creatinine [Mass/Vol] 0.70 mg/dL Normal 0.50-1.05 [facility] Comment on above: Performed By: #### 2 4321-2 #### HARLEEN QUINTANA ([id number]) [facility] ([facility]) [address] [place] [address] 13165 GFR/1.73 sq M.predicted MDRD (S/P/Bld) [Vol rate/Area] mL/min/{1.73_m2} Normal >60 [facility] Comment on above: Result Comment: Calc ulations of estimated GFR are performed using the 2020 CKD-EPI Study Refit equation without the race variable for the IDMS-Traceable creatinine methods. https://jasn.asnjournals.org/content//ASN.2020 029982 Performed By: #### 2 4321-2 #### HARLEEN QUINTANA ([id number]) [facility] ([facility]) [address] [place] [address] Glucose [Mass/Vol] 100 mg/dL High 74-99 [facility] Comment on above: Performed By: #### 2 4321-2 #### HARLEEN QUINTANA ([id number]) [facility] ([facility]) [address] [place] [address]207 Potassium [Moles/Vol] 3.8 mmol/L Normal 3.5-5.3 [facility] Comment on above: Performed By: #### 2 4321-2 #### HARLEEN QUINTANA ([id number]) [facility] ([facility]) [address] [place] [address] 98638 Sodium [Moles/Vol] 137 mmol/L Normal 136-145 [facility] Comment on above: Performed By: #### 2 4321-2 #### HARLEEN QUINTANA ([id number]) [facility] ([facility]) [address] [place] [address] 74847 Urea nitrogen [Mass/Vol] 9 mg/dL Normal 6-23 [facility] Comment on above: Performed By: #### 2 4321-2 #### HARLEEN QUINTANA ([id number]) [facility] ([facility]) [address] [place] [address] 04795 CBC panel Auto (Bld)on 11-21 Erythrocyte distribution width (RBC) [Ratio] 14.4 % 11.5 - 14.5 % [facility] Hematocrit (Bld) [Volume fraction] 37.5 % 36.0 - 46.0 % [facility] Hemoglobin (Bld) [Mass/Vol] 12.3 g/dL 12.0 - 16.0 g/dL [facility] Interpretation and review of laboratory results Abnormal [facility] MCH (RBC) [Entitic mass] 31.1 pg 26.0 - 34.0 pg [facility] MCHC (RBC) [Mass/Vol] 32.8 g/dL 32.0 - 36.0 g/dL [facility] MCV (RBC) [Entitic vol] 95 fL 80 - 100 fL [facility] Nucleated RBC/100 WBC (Bld) [Ratio] 0 % [facility] Platelets (Bld) [#/Vol] 228 10*3/uL [facility] RBC (Bld) [#/Vol] 3.96 10*6/uL [facility] WBC (Bld) [#/Vol] 8.8 10*3/uL [facility] Erythrocyte distribution width (RBC) [Ratio] 14.4 % Normal 11.5-14.5 [facility] Comment on above: Performed By: #### 5 8410-2 #### HARLEEN QUINTANA ([id number]) [facility] ([facility]) [address] [place] [address] 39968 Hematocrit (Bld) [Volume fraction] 37.5 % Normal 36.0-46.0 [facility] Comment on above: Performed By: #### 5 8410-2 #### HARLEEN QUINTANA ([id number]) [facility] ([facility]) [address] [place] [address] 61874 Hemoglobin (Bld) [Mass/Vol] 12.3 g/dL Normal 12.0-16.0 [facility] Comment on above: Performed By: #### 5 8410-2 #### HARLEEN QUINTANA ([id number]) [facility] ([facility]) [address] [place] [address] 45328 MCH (RBC) [Entitic mass] 31.1 pg Normal 26.0-34.0 [facility] Comment on above: Performed By: #### 5 8410-2 #### HARLEEN QUINTANA ([id number]) [facility] ([facility]) [address] [place] [address] 03495 MCHC (RBC) [Mass/Vol] 32.8 g/dL Normal 32.0-36.0 [facility] Comment on above: Performed By: #### 5 8410-2 #### HARLEEN QUINTANA ([id number]) [facility] ([facility]) [address] [place] [address] 35295 MCV (RBC) [Entitic vol] 95 fL Normal 80-100 [facility] Comment on above: Performed By: #### 5 8410-2 #### HARLEEN QUINTANA ([id number]) [facility] ([facility]) [address] [place] [address] 90088 Nucleated RBC/100 WBC (Bld) [Ratio] 0.0 /100 WBCs Normal 0.0-0.0 [facility] Comment on above: Performed By: #### 5 8410-2 #### HARLEEN QUINTANA ([id number]) [facility] ([facility]) [address] [place] [address] 07184 Platelets (Bld) [#/Vol] 228 x10*3/uL Normal 150-450 [facility] Comment on above: Performed By: #### 5 8410-2 #### HARLEEN QUINTANA ([id number]) [facility] ([facility]) [address] [place] [address] 85839 RBC (Bld) [#/Vol] 3.96 x10*6/uL Low 4.00-5.20 [facility] Comment on above: Performed By: #### 5 8410-2 #### HARLEEN QUINTANA ([id number]) [facility] ([facility]) [address] [place] [address] 45425 WBC (Bld) [#/Vol] 8.8 x10*3/uL Normal 4.4-11.3 [facility] Comment on above: Performed By: #### 5 8410-2 #### HARLEEN QUINTANA ([id number]) [facility] ([facility]) [address] [place] [address] 90060 Magnesiumon 11-21-2024 Magnesium [Mass/Vol] 2.2 mg/dL 1.60 - 2.40 mg/dL [facility] Magnesium [Mass/Vol] 2.20 mg/dL Normal 1.60-2.40 [facility] Comment on above: Performed By: #### 1 9123-9 #### HARLEEN QUINTANA ([id number]) [facility] ([facility]) [address] [place] [address] 21854 Magnesium [Mass/Vol]on 11-21 Interpretation and review of laboratory results Normal [facility] No Panel Informationon 11-21 [facility] XR CHEST 1 VIEWon 11-21-2024 XR CHEST 1 VIEW Interpreted By: Jose Rogers, STUDY: XR CHEST 1 VIEW; 11/21/2024 10:25 am INDICATION: Signs/Symptoms:chest tube removal. COMPARISON: Chest radiograph 11/21/2024 ACCESSION NUMBER(S): [id number] ORDERING CLINICIAN: PARTHA ROCHA FINDINGS: AP radiograph of the chest was provided. A presumed HOSPITAL NURSE shunt is seen overlying the right base of the neck, right chest wall, and right hemiabdomen with tip not in [id number]. Interval removal of left chest tube. CARDIOMEDIASTINAL SILHOUETTE: The cardiomediastinal silhouette is persistently enlarged but stable in size and configuration. LUNGS: There is no consolidation, pleural effusion, or pneumothorax. ABDOMEN: No remarkable upper abdominal findings. BONES: No acute osseous changes. IMPRESSION: Interval removal of left chest tube. No evidence of acute cardiopulmonary process. MACRO: None Signed by: Jose Rogers 11/21/2024 10:33 AM Dictation workstation: [id number] [facility] XR CHEST 1 VIEW Interpreted By: Eloy José, STUDY: XR CHEST 1 VIEW; 11/21/2024 5:45 am INDICATION: Signs/Symptoms:s/p posterior mediastinal mass resection. COMPARISON: Portable chest, 20 November 2024 ACCESSION NUMBER(S): [id number] ORDERING CLINICIAN: ARIELLE SHAH TECHNIQUE: Single frontal view of the chest; Portable technique FINDINGS: Left chest tube unchanged in position Right sided central line is unchanged and well positioned No demonstrable pneumothorax or acute infiltrate on either side No large effusion or edema IMPRESSION: No interval change MACRO: None Signed by: Eloy José 11/21/2024 8:35 AM Dictation workstation: [id number] [facility] Comment on above: Order Comment: Tomor row AM XR Chest Single viewon 11-21 Interval removal of left chest tube. No evidence of acute cardiopulmonary process. MACRO: None Signed by: Jose Rogers 11/21/2024 10:33 AM Dictation workstation: [id number] MM[facility]AL Interpreted By: Jose Rogers, STUDY: XR CHEST 1 VIEW; 11/21/2024 10:25 am INDICATION: Signs/Symptoms:chest tube removal. COMPARISON: Chest radiograph 11/21/2024 ACCESSION NUMBER(S): [id number] ORDERING CLINICIAN: PARTHA ROCHA FINDINGS: AP radiograph of the chest was provided. A presumed HOSPITAL NURSE shunt is seen overlying the right base of the neck, right chest wall, and right hemiabdomen with tip not in igaci-oc-puse. Interval removal of left chest tube. CARDIOMEDIASTINAL SILHOUETTE: The cardiomediastinal silhouette is persistently enlarged but stable in size and configuration. LUNGS: There is no consolidation, pleural effusion, or pneumothorax. ABDOMEN: No remarkable upper abdominal findings. BONES: No acute osseous changes. MMODAL Jose Rogers MD - 11/21/2024 Interpreted By: Jose Rogers, STUDY: XR CHEST 1 VIEW; 11/21/2024 10:25 am INDICATION: Signs/Symptoms:chest tube removal. COMPARISON: Chest radiograph 11/21/2024 ACCESSION NUMBER(S): [id number] ORDERING CLINICIAN: PARTHA ROCHA FINDINGS: AP radiograph of the chest was provided. A presumed HOSPITAL NURSE shunt is seen overlying the right base of the neck, right chest wall, and right hemiabdomen with tip not in [id number]. Interval removal of left chest tube. CARDIOMEDIASTINAL SILHOUETTE: The cardiomediastinal silhouette is persistently enlarged but stable in size and configuration. LUNGS: There is no consolidation, pleural effusion, or pneumothorax. ABDOMEN: No remarkable upper abdominal findings. BONES: No acute osseous changes. IMPRESSION: Interval removal of left chest tube. No evidence of acute cardiopulmonary process. MACRO: None Signed by: Jose Rogers 11/21/2024 10:33 AM Dictation workstation: [id number] [facility] Work Phone: Radiology Study observation (narrative) [place] Work Phone: No interval change MACRO: None Signed by: Eloy José 11/21/2024 8:35 AM Dictation workstation: [id number] [facility] Interpreted By: Eloy José, STUDY: XR CHEST 1 VIEW; 11/21/2024 5:45 am INDICATION: Signs/Symptoms:s/p posterior mediastinal mass resection. COMPARISON: Portable chest, 20 November 2024 ACCESSION NUMBER(S): [id number] ORDERING CLINICIAN: ARIELLE SHAH TECHNIQUE: Single frontal view of the chest; Portable technique FINDINGS: Left chest tube unchanged in position Right sided central line is unchanged and well positioned No demonstrable pneumothorax or acute infiltrate on either side No large effusion or edema [facility] MMODAL Eloy José MD - 11/21/2024 Interpreted By: Eloy José, STUDY: XR CHEST 1 VIEW; 11/21/2024 5:45 am INDICATION: Signs/Symptoms:s/p posterior mediastinal mass resection. COMPARISON: Portable chest, 20 November 2024 ACCESSION NUMBER(S): [id number] ORDERING CLINICIAN: ARIELLE SHAH TECHNIQUE: Single frontal view of the chest; Portable technique FINDINGS: Left chest tube unchanged in position Right sided central line is unchanged and well positioned No demonstrable pneumothorax or acute infiltrate on either side No large effusion or edema IMPRESSION: No interval change MACRO: None Signed by: Eloy José 11/21/2024 8:35 AM Dictation workstation: [id number] [facility] Work Phone: Radiology Study observation (narrative) [place] Work Phone: XR Chest Single viewOrdered By: Jose Rogers on 11-21-2024 [facility] Work Phone: XR Chest Single viewOrdered By: Eloy José on 11-21-2024 [facility] Work Phone: Blood type and Indirect anti body screen panel (Bld)on 11-20-2024 ABO group Nom (Bld) A [facility] Blood group antibody screen Ql Negative [facility] D Ag Ql (Bld) Positive [facility] ABO group Nom (Bld) A Normal [facility] Comment on above: Performed By: #### 3 4532-2 #### HARLEEN MAGANA RIO ESTEPHANIA ([id number]) [facility] ([facility]) [address] Blood group antibody screen Ql Negative [facility] Comment on above: Performed By: #### 3 4532-2 #### HARLEEN MAGANA TRUNG BEST ([id number]) [facility] ([facility]) [address] [place] [address] [place] D Ag Ql (Bld) Positive [facility] Comment on above: Performed By: #### 3 4532-2 #### HARLEEN MAGANA TRUNG BEST ([id number]) [facility] [address] [place] [address] US ECG 12 leadOrdered By: Maribel Rabago on 11-20-2024 Atrial Rate 85 BPM [facility] Work Phone: P [place] 52 degrees [facility] Work Phone: P Offset 188 [facility] Work Phone: P Onset 138 ms [facility] Work Phone: HI Interval 166 ms [facility] Work Phone: Q Onset 221 ms [facility] Work Phone: QRS Count 14 beats [facility] Work Phone: QRS Duration 90 ms [facility] Work Phone: [phone] QT Interval 390 ms [facility] Work Phone: [phone] QTC Calculation(Bazett) 464 ms [facility] Work Phone: QTC Fredericia 438 ms [facility] Work Phone: R [place] -4 degrees [facility] Work Phone: T [place] 29 degrees [facility] Work Phone: T Offset 416 ms [facility] Work Phone: Ventricular Rate 85 BPM [place] Work Phone: [facility] Work Phone: ECG 12 leadon 11-20-2024 Normal sinus rhythm Low voltage QRS Borderline ECG When compared with ECG of 07-AUG-2024 06:33, QT has lengthened Confirmed by Jordon Rabago ([id number]) on 11/20/2024 10:52:14 PM MUSE Jordon Rabago MD - 11/20/2024 Normal sinus rhythm Low voltage QRS Borderline ECG When compared with ECG of 07-AUG-2024 06:33, QT has lengthened Confirmed by Jordon Rabago ([id number]) on 11/20/2024 10:52:14 PM [facility] Work Phone: ECG 12-LEADon 11-20-2024 ECG 12-LEAD Ventricular Rate 85 Atrial Rate 85 P-R Interval 166 QRS Duration 90 Q-T Interval 390 QTC Calculation(Bazett) 464 P [place] 52 R [place] -4 T [place] 29 QRS Count 14 Q Onset 221 P Onset 138 P Offset 188 T Offset 416 QTC Fredericia 438 Diagnosis Normal sinus rhythm Low voltage QRS Borderline ECG When compared with ECG of 07-AUG-2024 06:33, QT has lengthened Confirmed by Jordon Rabago ([id number]) on 11/20/2024 10:52:14 PM Normal [facility] Surgical pathology studyon 0 11-20-2024 Surgical pathology study Pathology report.total SEE COMMENT Surgical Pathology Case: [id number] Authorizing Provider: Harsha Ojeda MD Collected: 11/20/2024 0849 Ordering Location: [facility] Received: 11/20/2024 0926 OR Pathologist: Saritha Lebron MD Specimen: SOFT TISSUE RESECTION, POSTERIOR MEDIASTINAL MASS Path report.final diagnosis SEE COMMENT Soft Tissue, Posterior Mediastinal Mass, Excision: Ganglioneuroma. at 1808 EDT Laboratory comment By the signature on this report, the individual or group listed as making the Final Interpretation/Diagnos is certifies that they have reviewed this case. Path report.comments The mass is expansile and encapsulated with numerous surrounding peripheral nerves. S100 and SOX10 highlight the constituent Schwann cells and CD34 highlights background fibroblasts. P16 highlights a subset of background cells. There are numerous scattered mature ganglion cells. Ki-67 proliferation index is low. There is degenerative atypia present (ancient change). 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 Adherent to one external surface is smooth and purple-martínez fibromembranous tissue, inked blue. The opposing surface is lobulated and yellow with cautery artifact, exposed capsular tissue, and is inked black. A 2.1 x 1.5 cm sharp and superficial defect is present on the lobulated surface and is reapproximated to be intact. On sectioning, there is a 3.3 x 2.3 x 2.0 cm encapsulated, glistening, simeon-salazar, and gelatinous nodule. The nodule is less than 0.1 cm from the uninvolved blue and black inked external surfaces. Areas of hemorrhage, necrosis, or fleshy foci are not identified. Photographs are taken. The specimen is entirely submitted in 8 cassettes. [facility] Summary of Cassettes: Specimen Label Site A 1-2 Opposing ends, perpendicular 3-8 Sequential full-thickness sections Gross dissection performed at: [place] [address] LAB AP ASR DISCLAIMER One or more of the reagents used to perform assays on this specimen MAY have contained components considered to be analyte specific reagents (ASR's). ASR's have not been cleared or approved by the U.S. Food and Drug Administration. These assays were developed and their performance characteristics determined by the Department of Pathology at [facility]. The FDA does not require this test to go through premarket FDA review. This test is used for clinical purposes. It should not be regarded as investigational or for research. This laboratory is certified under the Clinical Laboratory Improvement Amendments (CLIA) as qualified to perform high complexity clinical laboratory testing. The assays were performed with appropriate positive and negative controls which stained appropriately. [facility] Comment on above: Order Comment: Pre-o p diagnosis: Melanoma of back (Multi) [C43.59] XR CHEST 1 VIEWon 11-20-2024 XR CHEST 1 VIEW Interpreted By: Raquel Sweneey, STUDY: Chest, single AP view. INDICATION: Signs/Symptoms:s/p mediastinal mass resection. COMPARISON: None. ACCESSION NUMBER(S): [id number] ORDERING CLINICIAN: ARIELLE SHAH FINDINGS: Chest tube visualized projecting over the left upper thorax. The cardiac silhouette size is within normal limits. There is no focal consolidation, edema or pneumothorax. There is mild blunting of the left costophrenic angle likely representing postoperative effusion and atelectasis. No acute osseous abnormality. Surgical clips in the right axilla. IMPRESSION: 1. As above MACRO: None. Signed by: Raquel Sweeney 11/20/2024 11:04 AM Dictation workstation: [id number] [facility] Comment on above: Order Comment: On ar rival to PACU/SICU XR Chest Single viewon 11-20 1. As above MACRO: None. Signed by: Raquel Sweeney 11/20/2024 11:04 AM Dictation workstation: [id number] MMODAL Interpreted By: Raquel Sweeney, STUDY: Chest, single AP view. INDICATION: Signs/Symptoms:s/p mediastinal mass resection. COMPARISON: None. ACCESSION NUMBER(S): [id number] ORDERING CLINICIAN: ARIELLE SHAH FINDINGS: Chest tube visualized projecting over the left upper thorax. The cardiac silhouette size is within normal limits. There is no focal consolidation, edema or pneumothorax. There is mild blunting of the left costophrenic angle likely representing postoperative effusion and atelectasis. No acute osseous abnormality. Surgical clips in the right axilla. [facility] MMODAL Raquel Sweeney MD - 11/20/2024 Interpreted By: Raquel Sweeney, STUDY: Chest, single AP view. INDICATION: Signs/Symptoms:s/p mediastinal mass resection. COMPARISON: None. ACCESSION NUMBER(S): [id number] ORDERING CLINICIAN: ARIELLE SHAH FINDINGS: Chest tube visualized projecting over the left upper thorax. The cardiac silhouette size is within normal limits. There is no focal consolidation, edema or pneumothorax. There is mild blunting of the left costophrenic angle likely representing postoperative effusion and atelectasis. No acute osseous abnormality. Surgical clips in the right axilla. IMPRESSION: 1. As above MACRO: None. Signed by: Raquel Sweeney 11/20/2024 11:04 AM Dictation workstation: [id number] [facility] Work Phone: Radiology Study observation (narrative) [place] Work Phone: XR Chest Single viewOrdered By: Raquel Sweeney on 11-20-2024 [facility] Work Phone: Blood type and Indirect anti body screen panel (Bld)on 11-02-2024 ABO group Nom (Bld) A Normal [facility] Comment on above: Performed By: #### 3 4532-2 #### HARLEEN MAGANA RIO ESTEPHANIA ([id number]) [facility] ([employer]oodleYBB) [address] Blood group antibody screen Ql Negative [facility] Comment on above: Performed By: #### 3 4532-2 #### HARLEEN [employer] ([id number]) [facility]. BLOOD BANK (ELYBB) [address] [place] [address] US D Ag Ql (Bld) Positive [facility] Comment on above: Result Comment: 2nd ABO test required. Order and Collect VERAB Performed By: #### 3 4532-2 #### HARLEEN KOOSKIA ESTEPHANIA ([id number]) [facility] ([employer]) [address] [place] [address] US CBC panel Auto (Bld)on 11-02 Erythrocyte distribution width (RBC) [Ratio] 14.3 % Normal 11.5-14.5 [facility] Comment on above: Performed By: #### 5 8410-2 #### HARLEEN QUINTANA ([id number]) [facility] (EMC) [address] [place] [address] 97770 Hematocrit (Bld) [Volume fraction] 42.8 % Normal 36.0-46.0 [facility] Comment on above: Performed By: #### 5 8410-2 #### HARLEEN QUINTANA ([id number]) [facility] ([facility]C) [address] [place] [address] 90369 Hemoglobin (Bld) [Mass/Vol] 14.1 g/dL Normal 12.0-16.0 [facility] Comment on above: Performed By: #### 5 8410-2 #### HARLEEN QUINTANA ([id number]) [facility] ([facility]) [address] [place] [address] 95414 MCH (RBC) [Entitic mass] 31.3 pg Normal 26.0-34.0 [facility] Comment on above: Performed By: #### 5 8410-2 #### HARLEEN QUINTANA ([id number]) [facility] ([facility]) [address] [place] [address] 96376 MCHC (RBC) [Mass/Vol] 32.9 g/dL Normal 32.0-36.0 [facility] Comment on above: Performed By: #### 5 8410-2 #### HARLEEN QUINTANA ([id number]) [facility] ([facility]C) [address] [place] [address] 13372 MCV (RBC) [Entitic vol] 95 fL Normal 80-100 [facility] Comment on above: Performed By: #### 5 8410-2 #### HARLEEN QUINTANA ([id number]) [facility] ([facility]C) [address] [place] [address] 84548 Nucleated RBC/100 WBC (Bld) [Ratio] 0.0 /100 WBCs Normal 0.0-0.0 [facility] Comment on above: Performed By: #### 5 8410-2 #### HARLEEN QUINTANA ([id number]) [facility] ([facility]C) [address] [place] [address] Platelets (Bld) [#/Vol] 246 x10*3/uL Normal 150-450 [facility] Comment on above: Performed By: #### 5 8410-2 #### HARLEEN QUINTANA ([id number]) [facility] ([facility]) [address] [place] [address] RBC (Bld) [#/Vol] 4.51 x10*6/uL Normal 4.00-5.20 [facility] Comment on above: Performed By: #### 5 8410-2 #### HARLEEN QUINTANA ([id number]) [facility] (EM) [address] [place] [address] WBC (Bld) [#/Vol] 7.2 x10*3/uL Normal 4.4-11.3 [facility] Comment on above: Performed By: #### 5 8410-2 #### HARLEEN QUINTANA ([id number]) [facility] ([facility]) [address] [place] [address] Coagulation tissue factor in ducedon 11-02-2024 PT Coag (PPP) [Time] 10.7 s Normal 9.8-12.4 [facility] Comment on above: Performed By: #### 5 902-2 #### HARLEEN QUINTANA ([id number]) [facility] ([facility]) [address] [place] [address] Comprehensive metabolic 2000 panelon 11-02-2024 Albumin BCP dye [Mass/Vol] 4.5 g/dL Normal 3.4-5.0 [facility] Comment on above: Performed By: #### 2 4323-8 #### HARLEEN QUINTANA ([id number]) [facility] ([facility]) [address] [place] [address] ALP [Catalytic activity/Vol] 49 U/L Normal 33-110 [facility] Comment on above: Performed By: #### 2 4323-8 #### HARLEEN QUINTANA ([id number]) [facility] ([facility]) [address] [place] [address] 74570 ALT With P-5'-P [Catalytic activity/Vol] 22 U/L Normal 7-45 [facility] Comment on above: Result Comment: Ana Rosa ents treated with Sulfasalazine may generate falsely decreased results for ALT. Performed By: #### 2 4323-8 #### HARLEEN QUINTANA ([id number]) [facility] ([facility]) [address] [place] [address] 78963 Anion gap [Moles/Vol] 11 mmol/L Normal 10-20 [facility] Comment on above: Performed By: #### 2 4323-8 #### HARLEEN QUINTANA ([id number]) [facility] ([facility]) [address] [place] [address] 60920 AST With P-5'-P [Catalytic activity/Vol] 19 U/L Normal 9-39 [facility] Comment on above: Performed By: #### 2 4323-8 #### HARLEEN QUINTANA ([id number]) [facility] ([facility]) [address] [place] [address] 40603 Bilirubin [Mass/Vol] 0.4 mg/dL Normal 0.0-1.2 [facility] Comment on above: Performed By: #### 2 4323-8 #### HARLEEN QUINTANA ([id number]) [facility] ([facility]) [address] [place] [address] 30338 Calcium [Mass/Vol] 8.7 mg/dL Normal 8.6-10.3 [facility] Comment on above: Performed By: #### 2 4323-8 #### HARLEEN QUINTANA ([id number]) [facility] ([facility]) [address] [place] [address] 23400 Chloride [Moles/Vol] 112 mmol/L High 98-107 [facility] Comment on above: Performed By: #### 2 4323-8 #### HARLEEN QUINTANA ([id number]) [facility] ([facility]) [address] [place] [address] CO2 [Moles/Vol] 25 mmol/L Normal 21-32 [facility] Comment on above: Performed By: #### 2 4323-8 #### HARLEEN QUINTANA ([id number]) [facility] ([facility]) [address] [place] [address] Creatinine [Mass/Vol] 0.79 mg/dL Normal 0.50-1.05 [facility] Comment on above: Performed By: #### 2 4323-8 #### HARLEEN QUINTANA ([id number]) [facility] ([facility]) [address] [place] [address] 41155 GFR/1.73 sq M.predicted MDRD (S/P/Bld) [Vol rate/Area] mL/min/{1.73_m2} Normal >60 [facility] Comment on above: Result Comment: Calc ulations of estimated GFR are performed using the 2020 CKD-EPI Study Refit equation without the race variable for the IDMS-Traceable creatinine methods. https://jasn.asnjournals.org/content/early/ASN.2020 818146 Performed By: #### 2 4323-8 #### HARLEEN QUINTANA ([id number]) [facility] ([facility]) [address] [place] [address] 40412 Glucose [Mass/Vol] 90 mg/dL Normal 74-99 [facility] Comment on above: Performed By: #### 2 4323-8 #### HARLEEN QUINTANA ([id number]) [facility] ([facility]) [address] [place] [address] Potassium [Moles/Vol] 4.3 mmol/L Normal 3.5-5.3 [facility] Comment on above: Performed By: #### 2 4323-8 #### HARLEEN QUINTANA ([id number]) [facility] ([facility]) [address] [place] [address] 17304 Protein [Mass/Vol] 6.6 g/dL Normal 6.4-8.2 [facility] Comment on above: Performed By: #### 2 4323-8 #### HARLEEN QUINTANA ([id number]) [facility] ([facility]) [address] [place] [address] 66037 Sodium [Moles/Vol] 144 mmol/L Normal 136-145 [facility] Comment on above: Performed By: #### 2 4323-8 #### HARLEEN QUINTANA ([id number]) [facility] ([facility]) [address] [place] [address] 26364 Urea nitrogen [Mass/Vol] 15 mg/dL Normal 6-23 [facility] Comment on above: Performed By: #### 2 4323-8 #### HARLEEN QUINTANA ([id number]) [facility] ([facility]) [address] [place] [address] 10546 PT Coag (PPP) [Time]on 11-02 INR Coag (PPP) [Relative time] 1.0 Normal 0.9-1.1 [facility] Comment on above: Performed By: #### 5 902-2 #### HARLEEN QUINTANA ([id number]) [facility] ([facility]) [address] [place] [address] 00771 CBC panel Auto (Bld)on 10-09 Erythrocyte distribution width (RBC) [Ratio] 13.6 % Normal 11.5-14.5 [facility] Comment on above: Performed By: #### 5 8410-2 #### ROCKY Greer ([id number]) [facility] ([facility]) [address] [place] [address] Hematocrit (Bld) [Volume fraction] 44.5 % Normal 36.0-46.0 [facility] Comment on above: Performed By: #### 5 8410-2 #### ROCKY Greer ([id number]) [facility] ([facility]) [address] [place] [address] 28288 Hemoglobin (Bld) [Mass/Vol] 14.1 g/dL Normal 12.0-16.0 [facility] Comment on above: Performed By: #### 5 8410-2 #### ROCKY Greer ([id number]) [facility] ([facility]) [address] [place] [address] 26435 MCH (RBC) [Entitic mass] 30.7 pg Normal 26.0-34.0 [facility] Comment on above: Performed By: #### 5 8410-2 #### ROCKY Greer ([id number]) [facility] ([facility]) [address] [place] [address] 93779 MCHC (RBC) [Mass/Vol] 31.7 g/dL Low 32.0-36.0 [facility] Comment on above: Performed By: #### 5 8410-2 #### ROCKY Greer ([id number]) [facility] ([facility]) [address] [place] [address] 61288 MCV (RBC) [Entitic vol] 97 fL Normal 80-100 [facility] Comment on above: Performed By: #### 5 8410-2 #### ROCKY Greer ([id number]) [facility] ([facility]) [address] [place] [address] 97060 Nucleated RBC/100 WBC (Bld) [Ratio] 0.0 /100 WBCs Normal 0.0-0.0 [facility] Comment on above: Performed By: #### 5 8410-2 #### ROCKY Greer ([id number]) [facility] ([facility]) [address] [place] [address] 24889 Platelets (Bld) [#/Vol] 222 x10*3/uL Normal 150-450 [facility] Comment on above: Performed By: #### 5 8410-2 #### ROCKY Greer ([id number]) [facility] ([facility]) [address] [place] [address] RBC (Bld) [#/Vol] 4.59 x10*6/uL Normal 4.00-5.20 [facility] Comment on above: Performed By: #### 5 8410-2 #### ROCKY JEFFERSON L ([id number]) [facility] ([facility]) [address] [place] [address] WBC (Bld) [#/Vol] 7.5 x10*3/uL Normal 4.4-11.3 [facility] Comment on above: Performed By: #### 5 8410-2 #### ROCKY JEFFERSON L ([id number]) [facility] ([facility]) [address] [place] [address] CT GUIDED PERCUTANEOUS BIOPS Y MEDIASTINUMon 10-09-2024 CT GUIDED PERCUTANEOUS BIOPSY MEDIASTINUM Interpreted By: Cosme Stover and Beyersdorf Conner STUDY: CT GUIDED PERCUTANEOUS BIOPSY MEDIASTINUM; 10/09/2024 11:48 am INDICATION: Signs/Symptoms:L paravertebral mass, known melanoma. COMPARISON: PET-CT 09/26/2024 ACCESSION NUMBER(S): [id number] ORDERING CLINICIAN: ALANNA PENNINGTON TECHNIQUE: INTERVENTIONALIST(S): MD Korey Mcgrath MD CONSENT: The patient/patient's POA/next of kin was informed of the nature of the proposed procedure. The purposes, alternatives, risks, and benefits were explained and discussed. All questions were answered and consent was obtained. RADIATION EXPOSURE: Total DLP: 584.7 MGy*cm SEDATION: Moderate conscious IV sedation services (supervision of administration, induction, and maintenance) were provided by the attending physician performing the procedure with intravenous fentanyl 100 mcg and Versed 2 mg from 50-1135. MEDICATION/CONTRAST: No additional TIME OUT: A time out was performed immediately prior to procedure start with the interventional team, correctly identifying the patient name, date of , MRN, procedure, anatomy (including marking of site and side), patient position, procedure consent form, relevant laboratory and imaging test results, antibiotic administration, safety precautions, and procedure-specific equipment needs. COMPLICATIONS: No immediate adverse events identified. FINDINGS: The patient was positioned in the prone position on the CT scan table. Preliminary CT scan was obtained through the chest to localize the left upper mediastinal lesion. The appropriate area of the skin was marked, and subsequently prepped and draped using the maximum sterile barrier technique. The marked area was anesthetized using 1% lidocaine. A 17 gauge coaxial system was advanced using CT scan guidance into the left upper mediastinal lesion. 3 core biopsies were obtained with an 18 gauge cutting needle and stored in formalin solution. Subsequently, the coaxial needle was removed and hemostasis was obtained using manual pressure. Postprocedure CT scan was obtained which demonstrated minimal perilesional hemorrhage with no pneumothorax. IMPRESSION: Uncomplicated and technically successful CT guided core needle biopsy of the left upper mediastinal lymph node. 3 core biopsy samples were sent to pathology. I personally reviewed the images/study and I agree with the findings as stated. This study was interpreted at [place], [place]. Signed by: Cosme Stover 10/10/2024 12:58 PM Dictation workstation: [id number] Normal [facility] Coagulation tissue factor in ducedon 10-09-2024 PT Coag (PPP) [Time] 10.7 s Normal 9.8-12.4 [facility] Comment on above: Performed By: #### 5 902-2 #### ROCKY Greer ([id number]) [facility] ([facility]) [address] [place] [address] 77673 PT Coag (PPP) [Time]on 10-09 INR Coag (PPP) [Relative time] 1.0 Normal 0.9-1.1 [facility] Comment on above: Performed By: #### 5 902-2 #### ROCKY Greer ([id number]) [facility] ([facility]) [address] [place] [address] 56356 Surgical pathology studyon 0 10-09-2024 Surgical pathology study Pathology report.total SEE COMMENT Surgical Pathology Case: [id number] Authorizing Provider: Alanna Pennington MD Collected: 10/09/2024 1150 Ordering Location: [facility] Received: 10/10/2024 0908 Center Pathologist: Jacqueline Winchester MD Specimen: LYMPH NODE BIOPSY Path report.final diagnosis SEE COMMENT Mediastinal lymph node, biopsy: -- Consistent with neurofibroma with atypia; see note. -- Mitoses number < 1 per 10 HPFs. -- No necrosis identified. -- Immunohistochemical stains performed on formalin-fixed, paraffin embedded sections demonstrate neoplastic cells to be positive for S100, SOX10, p16 and CD34, and negative for Melan A and PRAME. at 0854 EDT Laboratory comment By the signature on this report, the individual or group listed as making the Final Interpretation/Diagnos is certifies that they have reviewed this case. Path report.relevant Hx history of melanoma Path report.gross observation SEE COMMENT Received in formalin, labeled with the patient's name and hospital number and lymph node, soft tissue , are multiple cylindrical segments of simeon-red soft tissue measuring 1.7 cm, 1.5 cm, and 1.4 cm in length by < 0.1 cm in diameter. The specimen is submitted in toto in two cassettes. [facility] ASR DISCLAIMER One or more of the reagents used to perform assays on this specimen MAY have contained components considered to be analyte specific reagents (ASR's). ASR's have not been cleared or approved by the U.S. Food and Drug Administration. These assays were developed and their performance characteristics determined by the Department of Pathology at [facility]. The FDA does not require this test to go through premarket FDA review. This test is used for clinical purposes. It should not be regarded as investigational or for research. This laboratory is certified under the Clinical Laboratory Improvement Amendments (CLIA) as qualified to perform high complexity clinical laboratory testing. The assays were performed with appropriate positive and negative controls which stained appropriately. Normal [facility] MR BRAIN W AND WO IV CONTRAS Ton 09-26-2024 MR BRAIN W AND WO IV CONTRAST Interpreted By: Teri Man, STUDY: MR BRAIN W AND WO IV CONTRAST; 09/26/2024 1:19 pm INDICATION: Signs/Symptoms:melanom a. ,C43.59 Malignant melanoma of other part of trunk COMPARISON: None. ACCESSION NUMBER(S): [id number] ORDERING CLINICIAN: ALANNA PENNINGTON TECHNIQUE: Axial T2, FLAIR, DWI, gradient echo T2 and sagittal and coronal T1 weighted images of brain were acquired. Post contrast T1 weighted images were acquired after administration of 15 ML Dotarem gadolinium based intravenous contrast. FINDINGS: CSF Spaces: The ventricles, sulci and basal cisterns are within normal limits. Parenchyma: There is no diffusion restriction abnormality to suggest acute infarct. Few subcortical and periventricular white matter hyperintensities nonspecific but most commonly seen with chronic microvascular ischemic changes. Right occipital approach ventriculostomy tube traversing the right ventricle with its tip traversing the frontal horn and terminating within the frontal lobe. The right ventricle is decreased in size. There is no mass effect or midline shift. Left calvarial defect without demonstrated enhancement to suggest aggressive disease. No dural enhancement. Paranasal Sinuses and Mastoids: Visualized paranasal sinuses and mastoid air cells are unremarkable. IMPRESSION: No demonstrated intracranial metastatic disease. No acute intracranial abnormality. Right ventriculostomy tube. Decreased ventricular size. MACRO: None Signed by: Teri Man 09/26/2024 3:25 PM Dictation workstation: [id number] [facility] MR Brain WO and W contrast I Von 09-26-2024 No demonstrated intracranial metastatic disease. No acute intracranial abnormality. Right ventriculostomy tube. Decreased ventricular size. MACRO: None Signed by: Teri Man 09/26/2024 3:25 PM Dictation workstation: [id number] [facility] Interpreted By: Teri Man, STUDY: MR BRAIN W AND WO IV CONTRAST; 09/26/2024 1:19 pm INDICATION: Signs/Symptoms:melanom a. ,C43.59 Malignant melanoma of other part of trunk COMPARISON: None. ACCESSION NUMBER(S): [id number] ORDERING CLINICIAN: ALANNA PENNINGTON TECHNIQUE: Axial T2, FLAIR, DWI, gradient echo T2 and sagittal and coronal T1 weighted images of brain were acquired. Post contrast T1 weighted images were acquired after administration of 15 ML Dotarem gadolinium based intravenous contrast. FINDINGS: CSF Spaces: The ventricles, sulci and basal cisterns are within normal limits. Parenchyma: There is no diffusion restriction abnormality to suggest acute infarct. Few subcortical and periventricular white matter hyperintensities nonspecific but most commonly seen with chronic microvascular ischemic changes. Right occipital approach ventriculostomy tube traversing the right ventricle with its tip traversing the frontal horn and terminating within the frontal lobe. The right ventricle is decreased in size. There is no mass effect or midline shift. Left calvarial defect without demonstrated enhancement to suggest aggressive disease. No dural enhancement. Paranasal Sinuses and Mastoids: Visualized paranasal sinuses and mastoid air cells are unremarkable. MMODAL Teri Man MD - 09/26/2024 Interpreted By: Teri Man, STUDY: MR BRAIN W AND WO IV CONTRAST; 09/26/2024 1:19 pm INDICATION: Signs/Symptoms:melanom a. ,C43.59 Malignant melanoma of other part of trunk COMPARISON: None. ACCESSION NUMBER(S): [id number] ORDERING CLINICIAN: ALANNA PENNINGTON TECHNIQUE: Axial T2, FLAIR, DWI, gradient echo T2 and sagittal and coronal T1 weighted images of brain were acquired. Post contrast T1 weighted images were acquired after administration of 15 ML Dotarem gadolinium based intravenous contrast. FINDINGS: CSF Spaces: The ventricles, sulci and basal cisterns are within normal limits. Parenchyma: There is no diffusion restriction abnormality to suggest acute infarct. Few subcortical and periventricular white matter hyperintensities nonspecific but most commonly seen with chronic microvascular ischemic changes. Right occipital approach ventriculostomy tube traversing the right ventricle with its tip traversing the frontal horn and terminating within the frontal lobe. The right ventricle is decreased in size. There is no mass effect or midline shift. Left calvarial defect without demonstrated enhancement to suggest aggressive disease. No dural enhancement. Paranasal Sinuses and Mastoids: Visualized paranasal sinuses and mastoid air cells are unremarkable. IMPRESSION: No demonstrated intracranial metastatic disease. No acute intracranial abnormality. Right ventriculostomy tube. Decreased ventricular size. MACRO: None Signed by: Teri Man 09/26/2024 3:25 PM Dictation workstation: [id number] [facility] Work Phone: MR Brain WO and W contrast I VOrdered By: Teri Man on 09-26-2024 [facility] Work Phone: NM PET CT WHOLE BODYon 09-[address] WHOLE BODY Interpreted By: David Vasques and Kaur Arashdeep STUDY: NM PET CT WHOLE BODY; 09/26/2024 11:08 am INDICATION: Signs/Symptoms:staging melanoma. 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 COMPARISON: None. ACCESSION NUMBER(S): [id number] ORDERING CLINICIAN: ALANNA PENNINGTON TECHNIQUE: DIVISION OF NUCLEAR MEDICINE POSITRON EMISSION TOMOGRAPHY (PET-CT) The patient received an intravenous dose of 14.1 mCi of Fluorine-18 fluorodeoxyglucose (FDG). Positron emission tomographic (PET) images from skull vertex to feet were then acquired after a one hour delay. Also acquired was a contemporaneous low dose non-contrast CT scan performed for attenuation correction of PET images and anatomic localization. The PET and CT images were digitally fused for display. All images were acquired on a combined PET-CT scanner unit. Some areas of FDG accumulation may be described in standardized uptake value (SUV) units. CODING: Initial Treatment Strategy (PI) Subsequent Treatment Strategy (PS) CALIBRATION: Dose Xnmtmskfg-pa-Dvot Interval (mins): 87 min Mediastinal bloodpool SUV (normal 1.5-2.5): 1.6 Blood glucose: 102 mg/dL FINDINGS: HEAD AND NECK: *Ventriculoperitoneal shunt is seen within the right lateral ventricle. No evidence of focal FDG avid lesion in the partially visualized brain parenchyma, noting that evaluation is limited because of the expected physiologic diffuse FDG uptake in the brain. * No focal FDG avid soft tissue lesion is seen in the neck. * No FDG avid cervical lymphadenopathy is present. * Thyroid gland is unremarkable. CHEST: *Intense FDG uptake with a SUV max 7.4 within left paravertebral soft tissue lesion adjacent to left 2nd rib posteriorly. *No focal FDG uptake within bilateral lung parenchyma. *Status post right axillary lymph node dissection with no focal FDG uptake in the postsurgical bed to suggest recurrence. *No evidence of FDG avid mediastinal, hilar or axillary lymphadenopathy. ABDOMEN AND PELVIS: *No FDG avid abdominopelvic lymphadenopathy. *Bilateral adrenal glands are unremarkable. *Physiologic radiotracer uptake is present in the liver and spleen with excretion into the bowel loops and the genitourinary tract. Nonspecific FDG uptake is seen within the ascending colon. MUSCULOSKELETAL: * No focal FDG avid lesion is seen in the axial or appendicular to suggest osseous metastasis. *Postprocedural changes with an upper mid back with non-specific FDG uptake with a SUV max 2.1 is seen. *Mildly FDG avid skin/subcutaneous thickening with a SUV max 1.4 is seen posterolateral aspect of the right lower back. IMPRESSION: 1. Status post wide local excision with mild non-specific FDG uptake within upper mid back, likely postprocedural. However, residual can not be excluded. 2. FDG avid left paravertebral soft tissue lucency adjacent to left 2nd rib posteriorly, suspicious for metastatic involvement. 3. Non-specific mildly FDG avid skin/subcutaneous thickening within posterolateral aspect of the right lower back. Involvement can not be excluded. Direct visualization is recommended. Image saved to PACs for review. 4. Status post right axillary lymph node dissection with no focal FDG uptake to suggest recurrence. 5. No FDG avid osseous metastatic disease. I personally reviewed the images/study and I agree with the findings as stated by Zehra Vigil MD. This study was interpreted at [place], [place]. Signed by: David Shah 09/26/2024 11:37 AM Dictation workstation: [id number] [facility] NM Whole body Bone Viewson 0 09-26-2024 1. Status post wide local excision with mild non-specific FDG uptake within upper mid back, likely postprocedural. However, residual can not be excluded. 2. FDG avid left paravertebral soft tissue lucency adjacent to left 2nd rib posteriorly, suspicious for metastatic involvement. 3. Non-specific mildly FDG avid skin/subcutaneous thickening within posterolateral aspect of the right lower back. Involvement can not be excluded. Direct visualization is recommended. Image saved to PACs for review. 4. Status post right axillary lymph node dissection with no focal FDG uptake to suggest recurrence. 5. No FDG avid osseous metastatic disease. I personally reviewed the images/study and I agree with the findings as stated by Zehra Vigil MD. This study was interpreted at [place], [place]. Signed by: David Shah 09/26/2024 11:37 AM Dictation workstation: [id number] MMODAL Interpreted By: David Harry and Kaur Arashdeep STUDY: NM PET CT WHOLE BODY; 09/26/2024 11:08 am INDICATION: Signs/Symptoms:staging melanoma. 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 COMPARISON: None. ACCESSION NUMBER(S): [id number] ORDERING CLINICIAN: ALANNA PENNINGTON TECHNIQUE: DIVISION OF NUCLEAR MEDICINE POSITRON EMISSION TOMOGRAPHY (PET-CT) The patient received an intravenous dose of 14.1 mCi of Fluorine-18 fluorodeoxyglucose (FDG). Positron emission tomographic (PET) images from skull vertex to feet were then acquired after a one hour delay. Also acquired was a contemporaneous low dose non-contrast CT scan performed for attenuation correction of PET images and anatomic localization. The PET and CT images were digitally fused for display. All images were acquired on a combined PET-CT scanner unit. Some areas of FDG accumulation may be described in standardized uptake value (SUV) units. CODING: Initial Treatment Strategy (PI) Subsequent Treatment Strategy (PS) CALIBRATION: Dose Pmxnqgbjd-sd-Anpc Interval (mins): 87 min Mediastinal bloodpool SUV (normal 1.5-2.5): 1.6 Blood glucose: 102 mg/dL FINDINGS: HEAD AND NECK: *Ventriculoperitoneal shunt is seen within the right lateral ventricle. No evidence of focal FDG avid lesion in the partially visualized brain parenchyma, noting that evaluation is limited because of the expected physiologic diffuse FDG uptake in the brain. * No focal FDG avid soft tissue lesion is seen in the neck. * No FDG avid cervical lymphadenopathy is present. * Thyroid gland is unremarkable. CHEST: *Intense FDG uptake with a SUV max 7.4 within left paravertebral soft tissue lesion adjacent to left 2nd rib posteriorly. *No focal FDG uptake within bilateral lung parenchyma. *Status post right axillary lymph node dissection with no focal FDG uptake in the postsurgical bed to suggest recurrence. *No evidence of FDG avid mediastinal, hilar or axillary lymphadenopathy. ABDOMEN AND PELVIS: *No FDG avid abdominopelvic lymphadenopathy. *Bilateral adrenal glands are unremarkable. *Physiologic radiotracer uptake is present in the liver and spleen with excretion into the bowel loops and the genitourinary tract. Nonspecific FDG uptake is seen within the ascending colon. MUSCULOSKELETAL: * No focal FDG avid lesion is seen in the axial or appendicular to suggest osseous metastasis. *Postprocedural changes with an upper mid back with non-specific FDG uptake with a SUV max 2.1 is seen. *Mildly FDG avid skin/subcutaneous thickening with a SUV max 1.4 is seen posterolateral aspect of the right lower back. [facility] MMODAL David Shah MD - 09/26/2024 Interpreted By: David Shah and Kaur Arashdeep STUDY: NM PET CT WHOLE BODY; 09/26/2024 11:08 am INDICATION: Signs/Symptoms:staging melanoma. 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 COMPARISON: None. ACCESSION NUMBER(S): [id number] ORDERING CLINICIAN: ALANNA PENNINGTON TECHNIQUE: DIVISION OF NUCLEAR MEDICINE POSITRON EMISSION TOMOGRAPHY (PET-CT) The patient received an intravenous dose of 14.1 mCi of Fluorine-18 fluorodeoxyglucose (FDG). Positron emission tomographic (PET) images from skull vertex to feet were then acquired after a one hour delay. Also acquired was a contemporaneous low dose non-contrast CT scan performed for attenuation correction of PET images and anatomic localization. The PET and CT images were digitally fused for display. All images were acquired on a combined PET-CT scanner unit. Some areas of FDG accumulation may be described in standardized uptake value (SUV) units. CODING: Initial Treatment Strategy (PI) Subsequent Treatment Strategy (PS) CALIBRATION: Dose Kqaiuofnp-mb-Mzhx Interval (mins): 87 min Mediastinal bloodpool SUV (normal 1.5-2.5): 1.6 Blood glucose: 102 mg/dL FINDINGS: HEAD AND NECK: *Ventriculoperitoneal shunt is seen within the right lateral ventricle. No evidence of focal FDG avid lesion in the partially visualized brain parenchyma, noting that evaluation is limited because of the expected physiologic diffuse FDG uptake in the brain. * No focal FDG avid soft tissue lesion is seen in the neck. * No FDG avid cervical lymphadenopathy is present. * Thyroid gland is unremarkable. CHEST: *Intense FDG uptake with a SUV max 7.4 within left paravertebral soft tissue lesion adjacent to left 2nd rib posteriorly. *No focal FDG uptake within bilateral lung parenchyma. *Status post right axillary lymph node dissection with no focal FDG uptake in the postsurgical bed to suggest recurrence. *No evidence of FDG avid mediastinal, hilar or axillary lymphadenopathy. ABDOMEN AND PELVIS: *No FDG avid abdominopelvic lymphadenopathy. *Bilateral adrenal glands are unremarkable. *Physiologic radiotracer uptake is present in the liver and spleen with excretion into the bowel loops and the genitourinary tract. Nonspecific FDG uptake is seen within the ascending colon. MUSCULOSKELETAL: * No focal FDG avid lesion is seen in the axial or appendicular to suggest osseous metastasis. *Postprocedural changes with an upper mid back with non-specific FDG uptake with a SUV max 2.1 is seen. *Mildly FDG avid skin/subcutaneous thickening with a SUV max 1.4 is seen posterolateral aspect of the right lower back. IMPRESSION: 1. Status post wide local excision with mild non-specific FDG uptake within upper mid back, likely postprocedural. However, residual can not be excluded. 2. FDG avid left paravertebral soft tissue lucency adjacent to left 2nd rib posteriorly, suspicious for metastatic involvement. 3. Non-specific mildly FDG avid skin/subcutaneous thickening within posterolateral aspect of the right lower back. Involvement can not be excluded. Direct visualization is recommended. Image saved to PACs for review. 4. Status post right axillary lymph node dissection with no focal FDG uptake to suggest recurrence. 5. No FDG avid osseous metastatic disease. I personally reviewed the images/study and I agree with the findings as stated by Zehra Vigil MD. This study was interpreted at [facility], [place], [place]. Signed by: David Shah 09/26/2024 11:37 AM Dictation workstation: [id number] [facility] Work Phone: NM Whole body Bone ViewsOrde red By: David Shah on 09-26-2024 [facility] Work Phone: No Panel Informationon 09-26 Radiology Study observation (narrative) [place] Work Phone: DERMPATH LAB- DERMATOPATHOLO GYon 08-07-2024 DERMPATH LAB- DERMATOPATHOLOGY Pathology report.total SEE COMMENT Dermatopathology Case: [id number] Authorizing Provider: Yanet Pacheco MD Collected: 08/07/2024 0956 Ordering Location: [facility] Received: 08/07/2024 1429 OR Pathologist: Dwight Bell MD Specimens: A) - SKIN INCISIONAL BIOPSY, WIDE LOCAL INCISION MIDBACK B) - LYMPH NODE EXCISION, RIGHT AXILLARY LYMPH NODE #1 C) - LYMPH NODE EXCISION, RIGHT AXILLARY SENTINEL NODE #2 Path report.final diagnosis SEE COMMENT A: SKIN, WIDE LOCAL INCISION MIDBACK, INCISIONAL BIOPSY: --MALIGNANT MELANOMA IN SITU AND REACTIVE CHANGES, CONSISTENT WITH PRIOR PROCEDURE SITE, INKED MARGINS FREE IN THESE PLANES OF SECTION. --MULTIFOCAL INCIDENTAL MELANOCYTIC NEVI (SEE COMMENT): --EXTENSIVE MULTIFOCAL NEUROFIBROMAS (SEE COMMENT): Comment: Residual atypical poorly nested junctional melanocytes are adjacent to prior procedure site changes in blocks A19, A20, A22, and A24 and are widely clear of the inked margins. There is an incidental junctional melanocytic nevus that extends to the black inked margin in block A5. There is an incidental moderately atypical junctional dysplastic nevus in block A7 that is clear of the inked margins. There is incidental junctional melanocytic nevus that extends to a peripheral inked margin in block A10. There is an incidental dermal melanocytic nevus in block A26 that is clear of the inked margins. Throughout nearly all blocks, there are small bland collections of tapered spindle cells in a pale pink stroma consistent with neurofibromas present in the superficial and deep dermis and around adnexal structures. The patient's history of neurofibromatosis is noted. The patient's prior specimen ([id number]) was reviewed in conjunction with the current case, and the findings from that specimen will be used in the synoptic summary for staging purposes. B: NODE, RIGHT AXILLARY LYMPH NODE #1, LYMPH NODE EXCISION: CAPSULAR MELANOCYTIC NEVUS AND BENIGN LYMPH NODE (SEE COMMENT): Comment: Immuonstains for SOX-10, Melan-A, and HMB45 (controls appropriate) were examined on blocks B1 through B3. In blocks B1 and focally in B2, there are banal-appearing SOX-10 positive melanocytes in the capsule. C: NODE, RIGHT AXILLARY SENTINEL NODE #2, LYMPH NODE EXCISION: BENIGN LYMPH NODE (SEE COMMENT): Comment: Immunostains for HMB-45, Melan-A, and SOX-10 (controls appropriate) are negative for definitive malignancy on blocks C1 and C2. Electronically signed out by DWIGHT BELL MD Laboratory comment By the signature on this report, the individual or group listed as making the Final Interpretation/Diagnos is certifies that they have reviewed this case. Path report.relevant Hx SEE COMMENT Pre-Op Diagnosis: Melanoma of back (Multi) Post-Op Diagnosis: Melanoma of back (Multi) Admission Diagnosis: Melanoma of back (Multi) C43.59 Specimen ID: [id number], [id number] Specimen Source: SKIN INCISIONAL BIOPSY Site/Location: WIDE LOCAL INCISION MIDBACK Collection Comments: SHORT STITCH SUPERIOR/ LONG STITCH LEFT Specimen ID: [id number], [id number] Specimen Source: LYMPH NODE EXCISION Site/Location: RIGHT AXILLARY LYMPH NODE #1 Collection Comments: #[id number] Path report.microscopic observation A-C. Microscopic examination performed. LAB AP ASR DISCLAIMER One or more of the reagents used to perform assays on this specimen MAY have contained components considered to be analyte specific reagents (ASR's). ASR's have not been cleared or approved by the U.S. Food and Drug Administration. These assays were developed and their performance characteristics determined by the Department of Pathology at [facility]. The FDA does not require this test to go through premarket FDA review. This test is used for clinical purposes. It should not be regarded as investigational or for research. This laboratory is certified under the Clinical Laboratory Improvement Amendments (CLIA) as qualified to perform high complexity clinical laboratory testing. The assays were performed with appropriate positive and negative controls which stained appropriately. Path report.gross observation SEE COMMENT A: Received in formalin is a simeon, ellipsoid piece of skin measuring 95 x 36 x 14 mm. It was received with a short stitch designated by the surgeon as superior , referred to here as 1 o'clock (Block 2) for the purpose of gross description. It was received with a second long stitch designated by the surgeon as left , referred to here as 9 o'clock for the purpose of gross description. The specimen was inked blue on the 12-6 o'clock margin and inked black on the 6-12 o'clock margin, then serially sectioned and embedded in toto in forty-three blocks. Blocks 9, 10, 19, 20, 21, 22, 35, and 36 are additionally bisected, with the odd-numbered blocks being on the black inked margin (Blocks 9, 19, 21, and 35) and the even-numbered blocks being o (more content not included)... Normal [facility] Comment on above: Order Comment: Pre-o p diagnosis: Melanoma of back (Multi) [C43.59] ECG 12-LEADon 08-07-2024 ECG 12-LEAD Ventricular Rate 66 Atrial Rate 66 P-R Interval 166 QRS Duration 82 Q-T Interval 380 QTC Calculation(Bazett) 398 P [place] 34 R [place] 44 T [place] 44 QRS Count 11 Q Onset 224 P Onset 141 P Offset 195 T Offset 414 QTC Fredericia 392 Diagnosis Normal sinus rhythm Normal ECG No previous ECGs available Confirmed by Bobby Aldana ([id number]) on 08/15/2024 8:23:58 AM Normal [facility] NM LYMPHOSCINTIGRAMon 2024 NM LYMPHOSCINTIGRAM Interpreted By: Lane Aguilar, STUDY: NM LYMPHOSCINTIGRAM; 08/07/2024 8:28 am INDICATION: Signs/Symptoms:SLNB. COMPARISON: None. ACCESSION NUMBER(S): [id number] ORDERING CLINICIAN: YANET PACHECO TECHNIQUE: DIVISION OF NUCLEAR MEDICINE RADIONUCLIDE SENTINEL LYMPH NODE LYMPHOSCINTIGRAPHY A total of 0.6 millicuries of Tc-99m tilmanocept (Lymphoseek) was injected intradermally in a circumferential pattern surrounding the patient's upper back melanoma biopsy site. Sequential images were then acquired. FINDINGS: Activity representing a sentinel lymph node was identified in the right axilla. Static and fused SPECT CT images were sent to PACS. There is no focal radio activity seen within inguinal lymph nodes. IMPRESSION: Successful sentinel lymph node localization in the right axilla. This study was analyzed and interpreted at [place], [place]. Signed by: Lane Guadalupe 08/07/2024 8:46 AM Dictation workstation: [id number] [facility] NM Lymphatic vessels Views W radionuclide intra lymphaticon 08-07-2024 Successful sentinel lymph node localization in the right axilla. This study was analyzed and interpreted at [place], [place]. Signed by: Lane Guadalupe 08/07/2024 8:46 AM Dictation workstation: [id number] MMODAL Interpreted By: Lane Aguilar, STUDY: NM LYMPHOSCINTIGRAM; 08/07/2024 8:28 am INDICATION: Signs/Symptoms:SLNB. COMPARISON: None. ACCESSION NUMBER(S): [id number] ORDERING CLINICIAN: YANET PACHECO TECHNIQUE: DIVISION OF NUCLEAR MEDICINE RADIONUCLIDE SENTINEL LYMPH NODE LYMPHOSCINTIGRAPHY A total of 0.6 millicuries of Tc-99m tilmanocept (Lymphoseek) was injected intradermally in a circumferential pattern surrounding the patient's upper back melanoma biopsy site. Sequential images were then acquired. FINDINGS: Activity representing a sentinel lymph node was identified in the right axilla. Static and fused SPECT CT images were sent to PACS. There is no focal radio activity seen within inguinal lymph nodes. MMODAL Lane Guadalupe MD - 08/07/2024 Interpreted By: Lane Guadalupe, STUDY: NM LYMPHOSCINTIGRAM; 08/07/2024 8:28 am INDICATION: Signs/Symptoms:SLNB. COMPARISON: None. ACCESSION NUMBER(S): [id number] ORDERING CLINICIAN: YANET PACHECO TECHNIQUE: DIVISION OF NUCLEAR MEDICINE RADIONUCLIDE SENTINEL LYMPH NODE LYMPHOSCINTIGRAPHY A total of 0.6 millicuries of Tc-99m tilmanocept (Lymphoseek) was injected intradermally in a circumferential pattern surrounding the patient's upper back melanoma biopsy site. Sequential images were then acquired. FINDINGS: Activity representing a sentinel lymph node was identified in the right axilla. Static and fused SPECT CT images were sent to PACS. There is no focal radio activity seen within inguinal lymph nodes. IMPRESSION: Successful sentinel lymph node localization in the right axilla. This study was analyzed and interpreted at [place], [place]. Signed by: Lane Guadalupe 08/07/2024 8:46 AM Dictation workstation: [id number] [facility] Work Phone: Radiology Study observation (narrative) [place] Work Phone: NM Lymphatic vessels Views W radionuclide intra lymphaticOrdered By: Lane Guadalupe on 08-07-2024 [facility] Work Phone: Surgical pathology studyon 0 07-14-2024 Surgical pathology study Pathology report.total SEE COMMENT Dermatopathology Report Case: [id number] Authorizing Provider: Yanet Pacheco MD Collected: 07/14/2024 1246 Ordering Location: [facility] Received: 07/14/2024 1246 [facility] Pathologist: Ron Aragon MD Specimen: OUTSIDE BLOCK(S)/SLIDE(S), 5 SLIDES, [facility] , #[id number] (BX: 06/28/2024) Path report.final diagnosis SEE COMMENT 5 SLIDES, [facility] , #[id number] (BX: 06/28/2024) SKIN, RIGHT BACK, BIOPSY: MALIGNANT MELANOMA, SEE NOTE. Note: Microscopic examination reveals a specimen that appears to be tangentially sectioned. There are areas of full thickness epidermal necrosis with subepidermal clefting. There are nests of atypical melanocytes in the dermis. There appear to be melanocytes along the dermal-epidermal junction in areas. Part of the epidermis is not visualized and there is no serum crust or neutrophils in this area. The melanocytes stain with antibodies against SOX-10 and PRAME, and do not stain with antibodies against p40. The Breslow thickness is an estimation as this specimen is tangentially sectioned and the Breslow thickness may represent an over or under estimation. Electronically signed out by Ron Aragon MD Synoptic report SEE COMMENT MELANOMA OF THE SKIN: Biopsy MELANOMA OF THE SKIN: BIOPSY - All Specimens 8th Edition - Protocol posted: 08/13/2021 SPECIMEN Procedure: Biopsy, shave Specimen Laterality: Right TUMOR Tumor Site: Skin of trunk: Right back Histologic Type: Superficial spreading melanoma (low-cumulative sun damage (CSD) melanoma) Maximum Tumor (Breslow) Thickness (Millimeters): 4.3 mm Ulceration: Present Extent of Ulceration (Millimeters): 1 mm Anatomic (Miguelito) Level: IV (melanoma invades reticular dermis) Mitotic Rate: 6 mitoses per mm2 Microsatellite(s): Not identified Lymphovascular Invasion: Not identified Neurotropism: Not identified Tumor-Infiltrating Lymphocytes: Present, nonbrisk Tumor Regression: Not identified MARGINS: Margin Status for Invasive Melanoma: All margins negative for invasive melanoma Margin Status for Melanoma in situ: Melanoma in situ present at margin Margin(s) Involved by Melanoma in Situ: Peripheral Margin(s) Involved by Melanoma in Situ: Deep PATHOLOGIC STAGE CLASSIFICATION (pTNM, AJCC 8th Edition): pT Category: pT4b Path report.relevant Hx Not provided. Path report.gross observation SEE COMMENT A. OUTSIDE BLOCK(S)/SLIDE(S). Received for consultation from [employer] are five slides labeled #[id number] (BX: 06/28/2204) along with the corresponding pathology report. [facility] Comment on above: Order Comment: Mater ials Received: 5 SLIDES, [facility] , #[id number] (BX: 06/28/2024) IGP,APTIMA HPV,AGE GDLNon AGE GDLN ACOG TESTING Note . [facility] Comment on above: TESTS RESULT FLAG UN ITS REF RANGE LAB Clinician Provided Cytology Information Source.............Vagina No. of containers..01 ThinPrep Vial Age Algo ACOG Anabel... 01 FLAG LEGEND: L-Low Normal,H-High Normal,LL-Alert Low,HH-Alert High <-Panic Low,>-Panic High,A-Abnormal,AA-Critical Abnormal Performed at: 01 =G [address] [id number] Sumaya Lorenzo MD, HPV APTIMA Negative Negative [facility] Comment on above: This nucleic acid am plification test detects fourteen high- risk HPV types (16,18,31,33,35,39,45,51,52,56,58,59,66,68) without differentiation. Performed at: = - [address] [id number] Linux System Engineer: Sumaya Lorenzo MD, Phone: [phone] Performed at: [address] [id number] Linux System Engineer: Sumaya Lorenzo MD, Phone: [phone] IGP, APTIMA HPV, RFX 16/18,45 Note . [facility] Comment on above: TESTS RESULT FLAG UN ITS REF RANGE LAB DIAGNOSIS: 02 NEGATIVE FOR INTRAEPITHELIAL LESION OR MALIGNANCY. THIS SPECIMEN WAS RESCREENED PART OF OUR MANAGER COPY PROGRAM. Specimen adequacy: 02 Satisfactory for evaluation. Performed by: 02 Cate Shi, Concessions Manager (ASCP) QC reviewed by: 02 Moni Araiza, Concessions Manager (ASCP) . 02 Note: Note 02 The Pap smear is a screening test designed to aid in the detection of premalignant and malignant conditions of the uterine cervix. It is not a diagnostic procedure and should not be used as the sole means of detecting cervical cancer. Both false-positive and false-negative reports do occur. Test Methodology: Note 02 This liquid based ThinPrep(R) pap test was screened with the use of an image guided system. HPV Genotype Reflex Note 02 Criteria not met, HPV Genotype not performed. FLAG LEGEND: L-Low Normal,H-High Normal,LL-Alert Low,HH-Alert High <-Panic Low,>-Panic High,A-Abnormal,AA-Critical Abnormal Performed at: 02 WB [facility] [address] [id number] Sumaya Lorenzo MD, [facility] Cytology Cervical or vaginal smear or scraping studyOrdered By: Jennifer Contreras on 06-09-2023 [facility] Alanine aminotransferase [En zymatic activity/volume] in Serum or PlasmaOrdered By: Damir Laughlin on 01-18-2023 ALT [Catalytic activity/Vol] 24 U/L 7-52 [facility] Albumin [Mass/volume] in Ser um or Plasma by Bromocresol green (BCG) dye binding methoOrdered By: Damir Laughlin on 01-18-2023 Albumin BCG dye [Mass/Vol] 4.3 g/dL 3.5-5.7 [facility] Alkaline phosphatase [Enzyma tic activity/volume] in Serum or PlasmaOrdered By: Damir Laughlin on 01-18-2023 ALP [Catalytic activity/Vol] 40 U/L 34-104 [facility] Aspartate aminotransferase [ Enzymatic activity/volume] in Serum or PlasmaOrdered By: Damir Laughlin on 01-18-2023 AST [Catalytic activity/Vol] 18 U/L 13-39 [facility] Basophils Auto (Bld) [#/Vol] Ordered By: Damir Laughlin on 01-18-2023 Basophils (Bld) [#/Vol] 0.1 10*3/uL 0.0-0.2 [facility] Basophils/100 WBC Auto (Bld) Ordered By: Damir Laughlin on 01-18-2023 Basophils/100 WBC (Bld) 1.0 % . F [facility] Bilirubin.total [Mass/volume ] in Serum or PlasmaOrdered By: Damir Laughlin on 01-18-2023 Bilirubin [Mass/Vol] 0.5 mg/dL 0.3-1.0 [facility] Calcium [Mass/volume] in Ser um or PlasmaOrdered By: Damir Laughlin on 01-18-2023 Calcium [Mass/Vol] 9.3 mg/dL 8.6-10.3 [facility] Carbon dioxide, total [Moles /volume] in Serum or PlasmaOrdered By: Damir Laughlin on 01-18-2023 CO2 [Moles/Vol] 29.7 mmol/L 21.0-31.0 [facility] Chloride [Moles/volume] in S derrick or PlasmaOrdered By: Damir Laughlin on 01-18-2023 Chloride [Moles/Vol] 108 mmol/L 98-107 [facility] Complete Blood Count Auto Di ffon 01-18-2023 Basophils (Bld) [#/Vol] 0.1 10*3/uL Normal 0.0-0.2 [facility] Comment on above: Result Comment: PERF ORMED BY: [place] [address] PATHOLOGIST ARMHOLE RAISER LOCKSTITCH SP WALTERS M.D. Performed By: #### C MP, CBC #### [address] Basophils/100 WBC (Bld) 1.0 % Normal . [facility] Comment on above: Performed By: #### C MP, CBC #### [address] Eosinophils (Bld) [#/Vol] 0.6 10*3/uL High 0.0-0.45 [facility] Comment on above: Performed By: #### C MP, CBC #### [address] Eosinophils/100 WBC (Bld) 8.3 % Normal . [facility] Comment on above: Performed By: #### C MP, CBC #### [address] Erythrocyte distribution width (RBC) [Ratio] 14.5 % Normal 11.9-15.3 [facility] Comment on above: Performed By: #### C MP, CBC #### [address] Hematocrit (Bld) [Volume fraction] 44.6 % Normal 34.0-46.4 [facility] Comment on above: Performed By: #### C MP, CBC #### [address] Hemoglobin (Bld) [Mass/Vol] 14.7 g/dL Normal 11.8-15.4 [facility] Comment on above: Performed By: #### C MP, CBC #### [address] Lymphocytes (Bld) [#/Vol] 2.5 10*3/uL Normal 1.00-4.8 [facility] Comment on above: Performed By: #### C MP, CBC #### [address] Lymphocytes/100 WBC (Bld) 36.0 % Normal . [facility] Comment on above: Performed By: #### C MP, CBC #### [address] MCH (RBC) [Entitic mass] 30.2 pg Normal 24.7-34.3 [facility] Comment on above: Performed By: #### C MP, CBC #### [address] MCV (RBC) [Entitic vol] 91.9 fL Normal 80-100 F [facility] Comment on above: Performed By: #### C MP, CBC #### [address] Mean Corpuscular HGB Conc 32.9 g/dL Normal 32.0-35.0 [facility] Comment on above: Performed By: #### C MP, CBC #### [address] Monocytes (Bld) [#/Vol] 0.6 10*3/uL Normal 0.0-0.8 [facility] Comment on above: Performed By: #### C MP, CBC #### [address] Monocytes/100 WBC (Bld) 9.0 % Normal . [facility] Comment on above: Performed By: #### C MP, CBC #### [facility] [address] Neutrophils (Bld) [#/Vol] 3.1 10*3/uL Normal 1.8-7.7 [facility] Comment on above: Performed By: #### C MP, CBC #### [facility] [address] Neutrophils/100 WBC (Bld) 45.7 % Normal . [facility] Comment on above: Performed By: #### C MP, CBC #### [facility] [address] NRBC% 0.1 /100{WBC} Normal 0-0.5 [facility] Comment on above: Performed By: #### C MP, CBC #### [facility] [address] Platelet mean volume (Bld) [Entitic vol] 9.0 fL Normal 6.3-10.7 [facility] Comment on above: Performed By: #### C MP, CBC #### [facility] [address] Platelets (Bld) [#/Vol] 226 10*3/uL Normal 150-450 [facility] Comment on above: Performed By: #### C MP, CBC #### [facility] [address] RBC (Bld) [#/Vol] 4.86 10*6/uL Normal 3.60-5.00 [facility] Comment on above: Performed By: #### C MP, CBC #### [facility] [address] WBC (Bld) [#/Vol] 6.9 10*3/uL Normal 3.8-11.6 [facility] Comment on above: Performed By: #### C MP, CBC #### [facility] [address] Comprehensive Metabolic Pane yrn 01-18-2023 Albumin [Mass/Vol] 4.3 g/dL Normal 3.5-5.7 [facility] Comment on above: Performed By: #### C MP, CBC #### [facility] [address] Albumin/Globulin [Mass ratio] 1.8 {ratio} Normal [facility] Comment on above: Performed By: #### C MP, CBC #### [address] ALP [Catalytic activity/Vol] 40 U/L Normal 34-104 [facility] Comment on above: Result Comment: PERF ORMED BY: [place] [address] PATHOLOGIST ARMHOLE RAISER LOCKSTITCH SP WALTERS M.D. Performed By: #### C MP, CBC #### [address] ALT [Catalytic activity/Vol] 24 U/L Normal 7-52 [facility] Comment on above: Performed By: #### C MP, CBC #### [address] Anion gap [Moles/Vol] 9.7 mmol/L Normal 6.0-15.0 [facility] Comment on above: Performed By: #### C MP, CBC #### [facility] [address] [place] [address] AST [Catalytic activity/Vol] 18 U/L Normal 13-39 [facility] Comment on above: Performed By: #### C MP, CBC #### [facility] [address] [place] [address] [place] Bilirubin [Mass/Vol] 0.5 mg/dL Normal 0.3-1.0 [facility] Comment on above: Performed By: #### C MP, CBC #### [address] Calcium [Mass/Vol] 9.3 mg/dL Normal 8.6-10.3 [facility] Comment on above: Performed By: #### C MP, CBC #### [facility] [address] [place] [address] [place] Chloride [Moles/Vol] 108 mmol/L High 98-107 [facility] Comment on above: Performed By: #### C MP, CBC #### [facility] [address] CO2 [Moles/Vol] 29.7 mmol/L Normal 21.0-31.0 [facility] Comment on above: Performed By: #### C MP, CBC #### [facility] [address] Creatinine [Mass/Vol] 0.89 mg/dL Normal 0.60-1.20 [facility] Comment on above: Performed By: #### C MP, CBC #### [facility] [address] GFR/1.73 sq M.predicted MDRD (S/P/Bld) [Vol rate/Area] mL/min/{1.73_m2} Normal [facility] Comment on above: Performed By: #### C MP, CBC #### [facility] [address] Globulin (S) [Mass/Vol] 2.4 g/dL Normal [facility] Comment on above: Performed By: #### C MP, CBC #### [facility] [address] [place] [address] Glucose [Mass/Vol] 85 mg/dL Normal 70-100 [facility] Comment on above: Result Comment: [facility] Glucose Reference Range is dependent on time and content of last meal. Glucose of more than 200 mg/dL in a nonstressed, ambulatory subject supports the diagnosis of Diabetes Mellitus. ADA recommended reference range Performed By: #### C MP, CBC #### [facility] [address] Potassium [Moles/Vol] 4.4 mmol/L Normal 3.5-5.1 [facility] Comment on above: Performed By: #### C MP, CBC #### [facility] [address] [place] [address] [place] Protein [Mass/Vol] 6.7 g/dL Normal 6.4-8.9 [facility] Comment on above: Performed By: #### C MP, CBC #### [facility] [address] Sodium [Moles/Vol] 143 mmol/L Normal 136-145 [facility] Comment on above: Performed By: #### C MP, CBC #### [facility] [address] [place] [address] [place] Urea nitrogen [Mass/Vol] 19 mg/dL Normal 7-25 [facility] Comment on above: Performed By: #### C MP, CBC #### [facility] [address] Creatinine [Mass/volume] in Serum or PlasmaOrdered By: Damir Laughlin on 01-18-2023 Creatinine [Mass/Vol] 0.89 mg/dL 0.60-1.20 [facility] Eosinophils Auto (Bld) [#/Vo l]Ordered By: Damir Laughlin on 01-18-2023 Eosinophils (Bld) [#/Vol] 0.6 10*3/uL 0.0-0.45 [facility] Eosinophils/100 WBC Auto (Bl d)Ordered By: Damir Laughlin on 01-18-2023 Eosinophils/100 WBC (Bld) 8.3 % . [facility] Erythrocyte distribution wid th Auto (RBC) [Ratio]Ordered By: Damir Laughlin on 01-18-2023 Erythrocyte distribution width (RBC) [Ratio] 14.5 % 11.9-15.3 [facility] Globulin Calc (S) [Mass/Vol] Ordered By: Damir Laughlin on 01-18-2023 Globulin (S) [Mass/Vol] 2.4 g/dL [facility] Glucose [Mass/volume] in Ser um or PlasmaOrdered By: Damir Laughlin on 01-18-2023 Glucose [Mass/Vol] 85 mg/dL 70-100 [facility] Comment on above: ADA recommended refe rence rangeRandom Glucose Reference Range is dependent on time and content of last meal. Glucose of more than 200 mg/dL in a nonstressed, ambulatory subject supports the diagnosis of Diabetes Mellitus. Hematocrit Auto (Bld) [Volum e fraction]Ordered By: Damir Laughlin on 01-18-2023 Hematocrit (Bld) [Volume fraction] 44.6 % 34.0-46.4 [facility] Hemoglobin [Mass/volume] in BloodOrdered By: Damir Laughlin on 01-18-2023 Hemoglobin (Bld) [Mass/Vol] 14.7 g/dL 11.8-15.4 [facility] Leukocytes [#/volume] correc nicki for nucleated erythrocytes in Blood by Automated counOrdered By: Damir Laughlin on 01-18-2023 WBC corrected for nucl RBC Auto (Bld) [#/Vol] 6.9 10*3/uL 3.8-11.6 [facility] Lymphocytes Auto (Bld) [#/Vo l]Ordered By: Damir Laughlin on 01-18-2023 Lymphocytes (Bld) [#/Vol] 2.5 10*3/uL 1.00-4.8 [facility] Lymphocytes/100 WBC Auto (Bl d)Ordered By: Damir Laughlin on 01-18-2023 Lymphocytes/100 WBC (Bld) 36.0 % . [facility] MCH Auto (RBC) [Entitic mass ]Ordered By: Damir Laughlin on 01-18-2023 MCH (RBC) [Entitic mass] 30.2 pg 24.7-34.3 [facility] MCHC Auto (RBC) [Mass/Vol]Or dered By: Damir Laughlin on 01-18-2023 MCHC (RBC) [Mass/Vol] 32.9 g/dL 32.0-35.0 [facility] MCV Auto (RBC) [Entitic vol] Ordered By: Damir Laughlin on 01-18-2023 MCV (RBC) [Entitic vol] 91.9 fL 80-100 F [facility] Monocytes Auto (Bld) [#/Vol] Ordered By: Damir Laughlin on 01-18-2023 Monocytes (Bld) [#/Vol] 0.6 10*3/uL 0.0-0.8 [facility] Monocytes/100 WBC Auto (Bld) Ordered By: Damir Laughlin on 01-18-2023 Monocytes/100 WBC (Bld) 9.0 % . [facility] Neutrophils Auto (Bld) [#/Vo l]Ordered By: Damir Laughlin on 01-18-2023 Neutrophils (Bld) [#/Vol] 3.1 10*3/uL 1.8-7.7 [facility] Neutrophils/100 WBC Auto (Bl d)Ordered By: Damir Laughlin on 01-18-2023 Neutrophils/100 WBC (Bld) 45.7 % . [facility] No Panel InformationOrdered By: Damir Laughlin on 01-18-2023 Estimated GFR (CKD-EPI) > 60.0 mL/Min [facility] Creatinine Clearance (Chem N/A [facility] Nucleated erythrocytes [Pres ence] in Blood by Automated countOrdered By: Damir Laughlin on 01-18-2023 Nucleated RBC Auto Ql (Bld) 0.1 /100{WBC} 0-0.5 [facility] Platelet mean volume Auto (B ld) [Entitic vol]Ordered By: Damir Laughlin on 01-18-2023 Platelet mean volume (Bld) [Entitic vol] 9.0 fL 6.3-10.7 [facility] Platelets Auto (Bld) [#/Vol] Ordered By: Damir Laughlin on 01-18-2023 Platelets (Bld) [#/Vol] 226 10*3/uL 150-450 [facility] Potassium [Moles/volume] in Serum or PlasmaOrdered By: Damir Laughlin on 01-18-2023 Potassium [Moles/Vol] 4.4 mmol/L 3.5-5.1 [facility] Protein [Mass/volume] in Ser um or PlasmaOrdered By: Damir Laughlin on 01-18-2023 Protein [Mass/Vol] 6.7 g/dL 6.4-8.9 [facility] RBC Auto (Bld) [#/Vol]Ordere d By: Damir Laughlin on 01-18-2023 RBC (Bld) [#/Vol] 4.86 10*6/uL 3.60-5.00 [facility] Serum or plasma albumin/glob ulin mass ratioOrdered By: Damir Qian on 01-18-2023 Albumin/Globulin [Mass ratio] 1.8 {ratio} [facility] Serum or plasma anion gap de terminationOrdered By: Damirclaudine Laughlin on 01-18-2023 Anion gap [Moles/Vol] 9.7 mmol/L 6.0-15.0 [facility] Sodium [Moles/volume] in Ser um or PlasmaOrdered By: Damirclaudine Laughlin on 01-18-2023 Sodium [Moles/Vol] 143 mmol/L 136-145 [facility] Urea nitrogen [Mass/volume] in Serum or PlasmaOrdered By: Damirclaudine Laughlin on 01-18-2023 Urea nitrogen [Mass/Vol] 19 mg/dL 7-25 [facility] WBC Auto (Bld) [#/Vol]Ordere d By: Damir Qian on 01-18-2023 WBC (Bld) [#/Vol] 6.9 10*3/uL 3.8-11.6 [facility] Physician Referralon 023 Physician Referral [id number] 0CD:127 Normal [facility] Physician Referralon 023 Physician Referral [id number] 0CD:127 Normal [facility] PAP ACOG PANEL 2: 30 to 65on 05-08-2022 . . Normal [facility] [place] Comment on above: Result Comment: Perf ormed at: WB Performed By: #### [id number] ####[facility] [address] [place] [address]DrWilber Barragan Age Gdln ACOG Testing 30-65 [facility] Comment on above: Performed By: #### [id number] ####[facility] [address] [place] [id number] Barragan DIAGNOSIS: Comment [facility] Comment on above: Result Comment: UNSA TISFACTORY FOR EVALUATION. Performed at: WB Performed By: #### [id number] ####[facility] [address] [place] [id number]. Tahir Barragan HPV Aptima Negative Normal Negative [facility] [place] Comment on above: Result Comment: This nucleic acid amplification test detects fourteen high-risk HPV types (16,18,31,33,35,39,45,51,52,56,58,59,66,68) without differentiation. Performed at: =G Performed By: #### [id number] ####[facility] [address] [place] [id number]. Tahir Barragan HPV Genotype Reflex Comment Normal [facility] Comment on above: Result Comment: Crit joseph not met, HPV Genotype not performed. Performed at: WB Performed By: #### [id number] ####[facility] [address] [place], [place] [id number]. Tahir Barragan Methodology: Comment Normal [facility] Comment on above: Result Comment: This liquid based ThinPrep(R) pap test was screened with the use of an image guided system. Performed at: WB Performed By: #### [id number] ####[facility] [address] [place], [place] [address]Dr. Tahir Barragan Note: Comment Normal [facility] Comment on above: Result Comment: The Pap smear is a screening test designed to aid in the detection of premalignant and malignant conditions of the uterine cervix. It is not a diagnostic procedure and should not be used as the sole means of detecting cervical cancer. Both false-positive and false-negative reports do occur. . Performed at: WB Performed By: #### [id number] ####[facility] [address] [place] [id number]. Tahir Barragan Performed by: Comment Normal [facility] Comment on above: Result Comment: Fercho Gonzalez Concessions Manager (ASCP) Performed at: WB Performed By: #### [id number] ####[facility] [address] [place] [id number] Barragan QC reviewed by: Comment Normal [facility] Comment on above: Result Comment: Jesenia J Dingess, Supervisory Concessions Manager (ASCP) Performed at: WB Performed By: #### [id number] ####[facility] [address] [place] [id number]. Tahir Yung Recommendation: Comment Normal [facility] Comment on above: Result Comment: Sugg est follow up as clinically appropriate. Performed at: WB Performed By: #### [id number] ####[facility] [address] [place], [place] [address]Tu. Maricruzelder Barragan Specimen adequacy: Comment Normal [facility] Comment on above: Result Comment: Spec imen processed and examined but unsatisfactory for evaluation of epithelial abnormality because of insufficient cellularity. Performed at: WB Performed By: #### [id number] ####[facility] [address] [place], [place] [address]Cw. Tahir Barragan MG MAMM SCREEN 3D MATTEO CADon 05-06-2022 MG MAMM SCREEN 3D MATTEO CAD Patient: SHAWNA GRIGSBY Exam Date: 05/06/2022 : 1980 Gender:F Ordering : DR DELGADO BINGHAM . Admission #: [id number] Family : Order #: [id number] CLICK HERE TO VIEW EXAM RADIOLOGY REPORT [...] at age 58. LOCATION: [facility] BREAST COMPOSITION: Heterogeneously dense,which may obscure [...] PALPABLE LUMP SHOULD BE BIOPSIED. Dictated by: Rogelio Vazquez M.D. on 05/06/2022 at 14:57 Approved by: Rogelio Vazquez M.D. on 05/06/2022 at 15:03 Normal [facility] BUNon 04-03-2022 Urea nitrogen [Mass/Vol] 17.0 mg/dL Normal 7.0-18.0 [facility] Comment on above: Performed By: #### C LNIDA, LIPID, BUN, TSH, ELEC, LIVER #### [facility] [address] [place] [address] Dr. Tahir Barragan CBC AUTO DIFFon 04-03-2022 BASO # 0.1 103/ul Normal 0.0-0.1 [facility] [place] Comment on above: Performed By: #### C BC #### [facility] [address] [place] [address] Dr. Tahir Barragan Basophils/100 WBC (Bld) 1.2 % Normal 0.2-2.0 [facility] Comment on above: Performed By: #### C BC #### [facility] [address] [place] [address] Dr. Tahir Barragan EO # 0.3 103/ul Normal 0.0-0.7 [facility] [place] Comment on above: Performed By: #### C BC #### [facility] [address] [place] [address] Dr. Tahir Barragan Eosinophils/100 WBC (Bld) 4.8 % Normal 0.9-7.0 [facility] [place] Comment on above: Performed By: #### C BC #### [facility] [address] [place] [address] Dr. Tahir Barragan Erythrocyte distribution width (RBC) [Ratio] 14.0 % Normal 11.0-15.0 [facility] Comment on above: Performed By: #### C BC #### [facility] [address] [place] [address] Dr. Tahir Barragan Hematocrit (Bld) [Volume fraction] 41.5 % Normal 36.0-48.0 [facility] Comment on above: Performed By: #### C BC #### [facility] [address] [place] [address] Dr. Tahir Barragan Hemoglobin (Bld) [Mass/Vol] 13.8 g/dL Normal 12.0-16.0 [facility] Comment on above: Performed By: #### C BC #### [facility] [address] [place] [address] Dr. Tahir Barragan IG # 0.04 10e3/ul Critically high 0.00-0.03 [facility] Comment on above: Performed By: #### C BC #### [facility] [address] [place] [address] Dr. Tahir Barragan IG % 0.7 % Critically high 0.0-0.5 [facility] [place] Comment on above: Performed By: #### C BC #### [facility] [address] [place] [address] Dr. Tahir Barragan LYMPH # 2.1 103/ul Normal 1.2-3.8 [facility] [place] Comment on above: Performed By: #### C BC #### [facility] [address] [place] [address] Dr. Tahir Barragan Lymphocytes/100 WBC (Bld) 34.1 % Normal 20.5-60.0 [facility] Comment on above: Performed By: #### C BC #### [facility] [address] [place] [address] Dr. Tahir Barragan MANUAL DIFF REQ NO Normal [facility] [place] Comment on above: Performed By: #### C BC #### [facility] [address] [place] [address] Dr. Tahir Barragan MCH (RBC) [Entitic mass] 29.9 pg Normal 26.7-34.0 [facility] Comment on above: Performed By: #### C BC #### [facility] [address] [place] [address] Dr. Tahir Barragan MCHC (RBC) [Mass/Vol] 33.3 g/dL Normal 29.9-35.2 [facility] Comment on above: Performed By: #### C BC #### [facility] [address] [place] [address] Dr. Tahir Barragan MCV (RBC) [Entitic vol] 90.0 fL Normal 81.0-99.0 [facility] Comment on above: Performed By: #### C BC #### [facility] [address] [place] [address] Dr. Tahir Barragan MONO # 0.6 103/ul Normal 0.3-0.8 [facility] [place] Comment on above: Performed By: #### C BC #### [facility] [address] [place] [address] Dr. Tahir Barragan Monocytes/100 WBC (Bld) 9.4 % Normal 1.7-12.0 [facility] Comment on above: Performed By: #### C BC #### [facility] [address] [place] [address] Dr. Tahir Barragan NEUT # 3.0 103/ul Normal 1.4-6.5 [facility] [place] Comment on above: Performed By: #### C BC #### [facility] [address] [place] [address] Dr. Tahir Barragan Neutrophils/100 WBC (Bld) 49.8 % Normal 43.0-75.0 [facility] [place] Comment on above: Performed By: #### C BC #### [facility] [address] [place] [address] Dr. Tahir Barragan Platelet mean volume (Bld) [Entitic vol] 10.6 fL Normal 9.5-13.5 [facility] [place] Comment on above: Performed By: #### C BC #### [facility] Laboratory [address] [place] [address] Dr. Tahir Barragan PLT 251 103/ul Normal 150-450 [facility] Comment on above: Performed By: #### C BC #### [facility] Laboratory [address] [place] [address] Dr. Tahir Barragan RBC 4.61 106/ul Normal 4.20-5.40 [facility] Comment on above: Performed By: #### C BC #### [facility] Laboratory [address] [place] [address] Dr. Tahir Barragan WBC 6.0 103/ul Normal 4.0-11.0 [facility] Comment on above: Performed By: #### C BC #### [facility] Laboratory [address] [address] [address] Tahir Barragan CREATININEon 04-03-2022 Creatinine [Mass/Vol] 0.68 mg/dL Normal 0.55-1.02 [facility] Comment on above: Performed By: #### C LINDA, LIPID, BUN, TSH, ELEC, LIVER ####[facility] [id number] [address]DrWilber Barragan EGFR-AF COLOMBIAN >60 Normal >=60 [facility] Comment on above: Performed By: #### C LINDA, LIPID, BUN, TSH, ELEC, LIVER ####[facility] [id number] [address]DrWilber Barragan EGFR-NON AF COLOMBIAN >60 Normal >=60 [facility] Comment on above: Performed By: #### C LINDA, LIPID, BUN, TSH, ELEC, LIVER ####[facility] [id number] [address]Dr. Tahir Barragan ELECTROLYTESon 04-03-2022 Anion gap [Moles/Vol] 9.2 mmol/L Normal [facility] Comment on above: Performed By: #### C LINDA, LIPID, BUN, TSH, ELEC, LIVER #### [facility] Laboratory [address] [address] [address] Tahir Barragan Chloride [Moles/Vol] 105 mmol/L Normal 98-107 [facility] Comment on above: Performed By: #### C LINDA, LIPID, BUN, TSH, ELEC, LIVER #### [facility] Laboratory [address] [address] [address] Tahir Barragan CO2 [Moles/Vol] 29.7 mmol/L Normal 21.0-32.0 [facility] Comment on above: Performed By: #### C LINDA, LIPID, BUN, TSH, ELEC, LIVER #### [facility] Laboratory [address] [address] [address] Tahir Barragan Potassium [Moles/Vol] 3.9 mmol/L Normal 3.5-5.1 [facility] Comment on above: Performed By: #### C LINDA, LIPID, BUN, TSH, ELEC, LIVER #### [facility] Laboratory [address] [address] [address] Tahir Barragan Sodium [Moles/Vol] 140 mmol/L Normal 136-145 [facility] Comment on above: Performed By: #### C LINDA, LIPID, BUN, TSH, ELEC, LIVER #### [facility] Laboratory [address] [address] [address] Tahir Barragan GLYCOHEMOGLOBIN A1Con 2021 ADA RECOMMENDATION SEE BELOW Normal [facility] Comment on above: Result Comment: ADA RECOMMENDED LIMIT 4.0 - 6.0 ADA THERAPEUTIC TARGET < 7.0 ACTION SUGGESTED > 7.0 Performed By: #### A 1C #### [facility] Laboratory [address] [place] [address] Dr. Tahir Barragan Glucose [Mass/Vol] 108 mg/dL Normal [facility] Comment on above: Performed By: #### A 1C #### [facility] Laboratory [address] [place] [address] Dr. Tahir Barragan HbA1c (Bld) [Mass fraction] 5.4 % Normal 4.5-6.2 [facility] Comment on above: Performed By: #### A 1C #### [facility] Laboratory [address] [place] [address] Dr. Tahir Barragan LIPID PROFILEon 04-03-2022 CHOL-HDL RATIO NORM SEE BELOW Normal [facility] Comment on above: Result Comment: 3.3 - 4.4 LOW RISK 4.4 - 7.1 AVERAGE RISK 7.1 - 11.0 MODERATE RISK >11.0 HIGH RISK Performed By: #### C LINDA, LIPID, BUN, TSH, ELEC, LIVER #### [facility] Laboratory [address] [place] [address] Dr. Tahir Barragan Cholesterol [Mass/Vol] 177 mg/dL Normal <=200 [facility] Comment on above: Performed By: #### C LINDA, LIPID, BUN, TSH, ELEC, LIVER #### [facility] Laboratory [address] [place] [address] Dr. Tahir Barragan Cholesterol in HDL [Mass/Vol] 69 mg/dL Critically high 40-60 [facility] Comment on above: Performed By: #### C LINDA, LIPID, BUN, TSH, ELEC, LIVER #### [facility] [address] [address] [address] Tahir Barragan Cholesterol in LDL [Mass/Vol] 100.0 mg/dL Normal [facility] Comment on above: Performed By: #### C LINDA, LIPID, BUN, TSH, ELEC, LIVER #### [facility] [address] [address] [address] Tahir Barragan Cholesterol.total/Génesis sterol in HDL [Mass ratio] 2.6 {ratio} Normal [facility] Comment on above: Performed By: #### C LINDA, LIPID, BUN, TSH, ELEC, LIVER #### [facility] [address] [address] [address] Tahir Barragan HDL NORMAL > or = 60 mg/dl - LO W CARDIOVASCULAR RISK <40 mg/dl - HIGH CARDIOVASCULAR RISK Normal [facility] Comment on above: Performed By: #### C LINDA, LIPID, BUN, TSH, ELEC, LIVER #### [facility] [address] [address] [address] Tahir Barragan LDL CALC NORMAL SEE BELOW Normal [facility] Comment on above: Result Comment: <100 mg/dl OPTIMAL 100 - 129 mg/dl NEAR OR ABOVE OPTIMAL 130 - 159 mg/dl BORDERLINE HIGH 160 - 189 mg/dl HIGH >190 mg/dl VERY HIGH Performed By: #### C LINDA, LIPID, BUN, TSH, ELEC, LIVER #### [facility] [address] [address] [address] Tahir Barragan Triglyceride [Mass/Vol] 40 mg/dL Normal <=150 T [facility] Comment on above: Performed By: #### C LINDA, LIPID, BUN, TSH, ELEC, LIVER #### [facility] [address] [address] [address] Tahir Barragan VLDL CALC 8.0 mg/dL Normal [facility] Comment on above: Performed By: #### C LINDA, LIPID, BUN, TSH, ELEC, LIVER #### [facility] [address] [place] [address] Dr. Tahir Barragan LIVER PROFILEon 04-03-2022 Albumin [Mass/Vol] 3.9 g/dL Normal 3.4-5.0 [facility] Comment on above: Performed By: #### C LINDA, LIPID, BUN, TSH, ELEC, LIVER #### [facility] [address] [place] [address] Dr. Tahir Barragan Albumin/Globulin [Mass ratio] 1.1 {ratio} Normal [facility] Comment on above: Performed By: #### C LINDA, LIPID, BUN, TSH, ELEC, LIVER #### [facility] [address] [place] [address] Dr. Tahir Barragan ALP [Catalytic activity/Vol] 78 U/L Normal 46-116 [facility] Comment on above: Performed By: #### C LINDA, LIPID, BUN, TSH, ELEC, LIVER #### [facility] [address] [place] [address] Dr. Tahir Barragan ALT [Catalytic activity/Vol] 16 U/L Normal 14-59 [facility] Comment on above: Performed By: #### C LINDA, LIPID, BUN, TSH, ELEC, LIVER #### [facility] [address] [place] [address] Dr. Tahir Barragan AST [Catalytic activity/Vol] 9 U/L Critically low 15-37 [facility] Comment on above: Performed By: #### C LINDA, LIPID, BUN, TSH, ELEC, LIVER #### [facility] [address] [place] [address] Dr. Tahir Barragan BILI, CONJUGATED 0.1 mg/dL Normal 0.0-0.2 [facility] Comment on above: Performed By: #### C LINDA, LIPID, BUN, TSH, ELEC, LIVER #### [facility] [address] [place] [address] Dr. Tahir Barragan Bilirubin [Mass/Vol] 0.4 mg/dL Normal 0.2-1.0 [facility] Comment on above: Performed By: #### C LINDA, LIPID, BUN, TSH, ELEC, LIVER #### [facility] [address] [address] [address] Tahir Barragan Globulin (S) [Mass/Vol] 3.5 g/dL Normal [facility] Comment on above: Performed By: #### C LINDA, LIPID, BUN, TSH, ELEC, LIVER #### [facility] [address] [address] [address] Tahir Barragan Protein [Mass/Vol] 7.4 g/dL Normal 6.4-8.2 [facility] Comment on above: Performed By: #### C LINDA, LIPID, BUN, TSH, ELEC, LIVER #### [facility] [address] [address] [address] Tahir Barragan SED RATE [facility] 2021 SED RATE 24 mm/hr Critically high <=[address] [facility] Comment on above: Performed By: #### S EDR #### [facility] [address] [address] [address] Tahir Barragan TSHon 04-03-2022 TSH 0.848 uIU/mL Normal 0.358-3.740 [facility] Comment on above: Performed By: #### C LINDA, LIPID, BUN, TSH, ELEC, LIVER #### [facility] [address] [address] [address] Tahir Barragan Activated partial thrombopla stin time (aPTT) in platelet poor plasma by coagulation aOrdered By: Damir Laughlin on 10-08-2021 aPTT Coag (PPP) [Time] 30.3 s 25.1-36.5 [facility] Automated epithelial cells c ount in urine sediment (number/area)Ordered By: Damir Laughlin on 10-08-2021 Epithelial cells Auto (Urine sed) [#/Area] None seen [HPF] [facility] Automated erythrocytes count in urine sediment (number/area)Ordered By: Damir Laughlin on 10-08-2021 RBC Auto (Urine sed) [#/Area] None seen [HPF] [facility] Automated leukocytes count i n urine sediment (number/area)Ordered By: Damir Laughlin on 10-08-2021 WBC Auto (Urine sed) [#/Area] None seen [HPF] [facility] Automated urine hyaline cast s count (number/volume)Ordered By: Damir Laughlin on 10-08-2021 Hyaline casts Auto (U) [#/Vol] None seen [LPF] [facility] Basophils Auto (Bld) [#/Vol] Ordered By: Damir Laughlin on 10-08-2021 Basophils (Bld) [#/Vol] 0.1 10*3/uL 0.0-0.2 [facility] Basophils/100 WBC Auto (Bld) Ordered By: Damir Laughlin on 10-08-2021 Basophils/100 WBC (Bld) 1.0 % F [facility] Bilirubin Test strip Ql (U)O rdered By: Damir Laughlin on 10-08-2021 Bilirubin Ql (U) Negative Negative [facility] Blood hemoglobin measurement (mass/volume)Ordered By: Damir Laughlin on 10-08-2021 Hemoglobin (Bld) [Mass/Vol] 12.9 g/dL 11.8-15.4 [facility] Blood leukocytes automated c ount (number/volume)Ordered By: Damir Laughlin on 10-08-2021 WBC (Bld) [#/Vol] 7.1 10*3/uL 4.5-11.0 [facility] Body fluid albumin measureme nt (mass/volume)Ordered By: Monroe Whitaker on 10-08-2021 Albumin (Body fld) [Mass/Vol] 4.1 g/dL 3.2-5.5 [facility] Color Auto (U)Ordered By: Bebeto Laughlin on 10-08-2021 Color (U) Yellow Yellow [facility] Creatine kinase [Enzymatic a ctivity/volume] in Serum or PlasmaOrdered By: Monroe Whitaker on 10-08-2021 CK [Catalytic activity/Vol] 123 U/L 22-269 [facility] Creatinine and Glomerular fi ltration rate.predicted panel (S/P/Bld)Ordered By: Monroe Whitaker on 10-08-2021 Creatinine [Mass/Vol] 0.78 mg/dL 0.44-1.03 Fir [facility] Eosinophils Auto (Bld) [#/Vo l]Ordered By: Damir Laughlin on 10-08-2021 Eosinophils (Bld) [#/Vol] 0.4 10*3/uL 0.0-0.45 [facility] Eosinophils/100 WBC Auto (Bl d)Ordered By: Damir Laughlin on 10-08-2021 Eosinophils/100 WBC (Bld) 5.1 % [facility] Erythrocyte distribution wid th Auto (RBC) [Ratio]Ordered By: Damir Laughlin on 10-08-2021 Erythrocyte distribution width (RBC) [Ratio] 15.0 % 11.9-15.3 [facility] Erythrocyte sedimentation ra te by Photometric methodOrdered By: Damir Laughlin on 10-08-2021 ESR Photometric method (Bld) [Velocity] 15 mm/hr 0-19 [facility] Estimated glomerular filtrat ion rate (GFR) non- AmericanOrdered By: Monroe Whitaker on 10-08-2021 GFR/1.73 sq M.predicted among non-blacks MDRD (S/P/Bld) [Vol rate/Area] > 60 mL/Min [facility] Globulin Calc (S) [Mass/Vol] Ordered By: Monroe Whitaker on 10-08-2021 Globulin (S) [Mass/Vol] 2.2 g/dL F [facility] Glucose mean value [Mass/vol ume] in Blood Estimated from glycated hemoglobinOrdered By: Monroe Whitaker on 10-08-2021 Average glucose Estimated from glycated hemoglobin (Bld) [Mass/Vol] 108 mg/dL [facility] Hematocrit Auto (Bld) [Volum e fraction]Ordered By: Damir Laughlin on 10-08-2021 Hematocrit (Bld) [Volume fraction] 38.6 % 34.0-46.4 [facility] Hemoglobin A1c percentageOrd ered By: Monroe Whitaker on 10-08-2021 HbA1c (Bld) [Mass fraction] 5.4 % 4.3-5.6 [facility] Comment on above: Increased risk for d iabetes: 5.7 - 6.4 diabetes: >6.4 glycemic control for adults with diabetes: <7.0 Ketones Auto test strip (U) [Mass/Vol]Ordered By: Damir Laughlin on 10-08-2021 Ketones (U) [Mass/Vol] Negative Negative Fi [facility] Laboratory - CoagulationOrde red By: Damir Laughlin on 10-08-2021 PT Coag (PPP) [Time] 11.7 s 9.0-12.9 [facility] Laboratory - Hematology and Cell countsOrdered By: Damir Laughlin on 10-08-2021 Nucleated RBC/100 WBC (Bld) [Ratio] 0.0 % 0-0.5 [facility] Lymphocytes Auto (Bld) [#/Vo l]Ordered By: Damir Laughlin on 10-08-2021 Lymphocytes (Bld) [#/Vol] 2.2 10*3/uL 1.00-4.8 [facility] Lymphocytes/100 WBC Auto (Bl d)Ordered By: Damir Laughlin on 10-08-2021 Lymphocytes/100 WBC (Bld) 31.5 % [facility] MCH Auto (RBC) [Entitic mass ]Ordered By: Damir Laughlin on 10-08-2021 MCH (RBC) [Entitic mass] 30.2 pg 24.7-34.3 [facility] MCHC Auto (RBC) [Mass/Vol]Or dered By: Damir Laughlin on 10-08-2021 MCHC (RBC) [Mass/Vol] 33.3 g/dL 32.0-35.0 [facility] MCV Auto (RBC) [Entitic vol] Ordered By: Damir Laughlin on 10-08-2021 MCV (RBC) [Entitic vol] 90.7 fL 80-100 F [facility] Monocytes Auto (Bld) [#/Vol] Ordered By: Damir Laughlin on 10-08-2021 Monocytes (Bld) [#/Vol] 0.5 10*3/uL 0.0-0.8 [facility] Monocytes/100 WBC Auto (Bld) Ordered By: Damir Laughlin on 10-08-2021 Monocytes/100 WBC (Bld) 7.5 % F [facility] Neutrophils Auto (Bld) [#/Vo l]Ordered By: Damir Laughlin on 10-08-2021 Neutrophils (Bld) [#/Vol] 3.9 10*3/uL 1.8-7.7 [facility] Neutrophils/100 WBC Auto (Bl d)Ordered By: Damir Laughlin on 10-08-2021 Neutrophils/100 WBC (Bld) 54.9 % [facility] Nitrite Test strip Ql (U)Ord ered By: Dmair Laughlin on 10-08-2021 Nitrite Ql (U) Negative Negative [facility] No Panel InformationOrdered By: Monroe Whitaker on 10-08-2021 Estimated GFR () > 60 mL/Min [facility] Comment on above: GFR estimated refere nce range: According to KDOQI guidelines, <60 ml/min/1.73m2 is sufficient to diagnose a patient with chronic kidney disease. Pharmacy Creatinine Clearance (Chem N/A [facility] Platelet mean volume Auto (B ld) [Entitic vol]Ordered By: Damir Laughlin on 10-08-2021 Platelet mean volume (Bld) [Entitic vol] 9.7 fL 6.3-10.7 [facility] Platelet poor plasma interna tional normalized ratio (INR) by coagulation assay (relatOrdered By: Damir Laughlin on 10-08-2021 INR Coag (PPP) [Relative time] 1.0 {INR} [facility] Comment on above: INR Therapeutic Rang [...] 10-08-2021 Platelets (Bld) [#/Vol] 226 10*3/uL 150-450 [facility] Protein Auto test strip (U) [Mass/Vol]Ordered By: Damir Laughlin on 10-08-2021 Protein (U) [Mass/Vol] Negative [facility] [Mass/volume] in Ser um or PlasmaOrdered By: Monroe Whitaker on 10-08-2021 Protein [Mass/Vol] 6.3 g/dL 6.1-7.9 [facility] RBC Auto (Bld) [#/Vol]Ordere d By: Damir Laughlin on 10-08-2021 RBC (Bld) [#/Vol] 4.25 10*6/uL 3.60-5.00 [facility] Serum or plasma C reactive p rotein measurement (mass/volume)Ordered By: Damir Laughlin on 10-08-2021 CRP [Mass/Vol] 0.5 mg/dL 0.0-1.0 [facility] Serum or plasma alanine rivera otransferase measurement without P-5'-P (enzymatic activiOrdered By: Monroe Whitaker on 10-08-2021 ALT No additional P-5'-P [Catalytic activity/Vol] 20 U/L 10-60 [facility] Serum or plasma albumin/glob ulin mass ratioOrdered By: Monroe Whitaker on 10-08-2021 Albumin/Globulin [Mass ratio] 1.9 {ratio} [facility] Serum or plasma alkaline marya sphatase measurement (enzymatic activity/volume)Ordered By: Monroe Whitaker on 10-08-2021 ALP [Catalytic activity/Vol] 48 U/L 32-92 [facility] Serum or plasma aspartate am inotransferase measurement (enzymatic activity/volume)Ordered By: Monroe Whitaker on 10-08-2021 AST [Catalytic activity/Vol] 17 U/L 10-42 [facility] Serum or plasma calcium marcy urement (mass/volume)Ordered By: Monroe Whitaker on 10-08-2021 Calcium [Mass/Vol] 9.2 mg/dL 8.2-10.2 [facility] Serum or plasma chloride fabiola surement (moles/volume)Ordered By: Monroe Whitaker on 10-08-2021 Chloride [Moles/Vol] 105 mmol/L 95-114 [facility] Serum or plasma glucose marcy urement (mass/volume)Ordered By: Monroe Whitaker on 10-08-2021 Glucose [Mass/Vol] 92 mg/dL 70-100 [facility] Comment on above: ADA recommended refe rence range Random Glucose Reference Range is dependent on time and content of last meal. Glucose of more than 200 mg/dL in a nonstressed, ambulatory subject supports the diagnosis of Diabetes Mellitus. Serum or plasma potassium me asurement (moles/volume)Ordered By: Monroe Whitaker on 10-08-2021 Potassium [Moles/Vol] 4.0 mmol/L 3.5-5.1 [facility] Serum or plasma sodium measu rement (moles/volume)Ordered By: Monroe Whitaker on 10-08-2021 Sodium [Moles/Vol] 138 mmol/L 136-146 [facility] Serum or plasma total biliru bin measurement (mass/volume)Ordered By: Monreo Whitaker on 10-08-2021 Bilirubin [Mass/Vol] 0.7 mg/dL 0.3-1.2 [facility] Serum or plasma total carbon dioxide measurement (moles/volume)Ordered By: Monroe Whitaker on 10-08-2021 CO2 [Moles/Vol] 22.1 mmol/L 22.0-30.0 [facility] Serum or plasma urea nitroge n measurement (mass/volume)Ordered By: Monroe Whitaker on 10-08-2021 Urea nitrogen [Mass/Vol] 15 mg/dL 9- [facility] Specific gravity Auto test s trip (U) [Rel density]Ordered By: Damir Laughlin on 10-08-2021 Specific gravity (U) [Rel density] 1.005 1.001-1.030 [facility] TSH DL <= 0.005 mIU/L QnOrde red By: Damir Laughlin on 10-08-2021 TSH Qn 0.65 m[IU]/L 0.45-5.33 [facility] Thyroxine (T4) free [Mass/vo lume] in Serum or PlasmaOrdered By: Damir Laughlin on 10-08-2021 Free T4 [Mass/Vol] 1.29 ng/dL 0.61-1.12 [facility] Urine bacteria detection by automated methodOrdered By: Damir Laughlin on 10-08-2021 Bacteria Auto Ql (U) None seen None Seen [facility] Urine clarity by refractomet ry automatedOrdered By: Damir Laughlin on 10-08-2021 Clarity Refractometry automated (U) Clear Clear [facility] Urine glucose measurement by automated test strip (mass/volume)Ordered By: Damir Laughlin on 10-08-2021 Glucose Auto test strip (U) [Mass/Vol] Normal mg/dL Normal [facility] Urine hemoglobin detection b y automated test stripOrdered By: Damir Laughlin on 10-08-2021 Hemoglobin Auto test strip Ql (U) Negative Negative [facility] Urine leukocyte esterase det ection by automated test stripOrdered By: Damir Laughlin on 10-08-2021 Leukocyte esterase Auto test strip Ql (U) Negative Negative [facility] Urobilinogen Auto test strip (U) [Mass/Vol]Ordered By: Damir Laughlin on 10-08-2021 Urobilinogen (U) [Mass/Vol] Normal mg/dL Normal [facility] pH Auto test strip (U)Ordere d By: Damir Laughlin on 10-08-2021 pH (U) 7.5 [pH] 5.0-9.0 [facility] Vital Signs Date Time Vital Sign Value Performing Clinician Facility 01-16-2025 09:41-0400 Diastolic blood pressure 112 mm[Hg] Monroe Whitaker JR Work Phone: [facility] 01-16-2025 09:41-0400 Heart rate 91 /min Monroe Whitaker JR Work Phone: [facility] 01-16-2025 09:41-0400 Systolic blood pressure 173 mm[Hg] Monroe Whitaker JR Work Phone: [facility] 01-16-2025 09:28-0400 Body height 153.67 cm Monroe Whitaker JR Work Phone: [facility] 01-16-2025 09:28-0400 Body mass index (BMI) [Ratio] 33.2 kg/m2 Monroe Whitaker JR Work Phone: [facility] 01-16-2025 09:28-0400 Body weight 78.47 kg Monroe Whitaker JR Work Phone: [facility] 12-08-2024 10:48-0400 Body height 153.7 cm Harsha Ojeda MD Work Phone: [facility] 12-08-2024 10:48-0400 Body mass index (BMI) [Ratio] 32.27 kg/m2 Harsha Ojeda MD Work Phone: [phone] [place] [address] 12-08-2024 10:48-0400 Body temperature 96.8 [degF] Harsha Ojeda MD Work Phone: [phone])706-510541 [place] [address] 12-08-2024 10:48-0400 Body weight 76.2 kg Harsha Ojeda MD Work Phone: 1([phone])495-422941 [place] [address] 12-08-2024 10:48-0400 Diastolic blood pressure 96 mm[Hg] Harsha Ojeda MD Work Phone: [phone] [place] [address] 12-08-2024 10:48-0400 Heart rate 101 /min Harsha Ojeda MD Work Phone: [phone])781-607341 [place] [address] 12-08-2024 10:48-0400 SaO2% (BldA) [Mass fraction] 98 % Harsha Ojeda MD Work Phone: [phone])049-834041 [place] [address] 12-08-2024 10:48-0400 Systolic blood pressure 145 mm[Hg] Harsha Ojeda MD Work Phone: [phone])147-625741 [place] [address] 11-21-2024 11:00-0400 Diastolic blood pressure 61 mm[Hg] Harsha Ojeda MD Work Phone: [facility] 11-21-2024 11:00-0400 Heart rate 96 /min Harsha Ojeda MD Work Phone: [phone] [place] [address] 11-21-2024 11:00-0400 Respiratory rate 17 /min Harsha Ojeda MD Work Phone: [phone] [place] [address] 11-21-2024 11:00-0400 SaO2% (BldA) [Mass fraction] 94 % Harsha Ojeda MD Work Phone: [phone] [place] [address] 11-21-2024 11:00-0400 Systolic blood pressure 103 mm[Hg] Harsha Ojeda MD Work Phone: [facility] 11-21-2024 10:00-0400 Body temperature 98.2 [degF] Harsha Ojeda MD Work Phone: [facility] 11-21-2024 08:00-0400 Body mass index (BMI) [Ratio] 30.9 kg/m2 Harsha Ojeda MD Work Phone: [facility] 11-21-2024 08:00-0400 Body weight 73 kg Harsha Ojeda MD Work Phone: [facility] 11-20-2024 11:00-0400 Body height 153.7 cm Harsha Ojeda MD Work Phone: [facility] 10-09-2024 12:30-0400 Diastolic blood pressure 69 mm[Hg] [address] 10-09-2024 12:30-0400 Heart rate 68 /min [address] 10-09-2024 12:30-0400 Respiratory rate 16 /min [address] 10-09-2024 12:30-0400 SaO2% (BldA) [Mass fraction] 98 % [address] 10-09-2024 12:30-0400 Systolic blood pressure 115 mm[Hg] [address] 10-09-2024 09:05-0400 Body temperature 98.6 [degF] [address] 09-06-2024 10:02-0400 Body height 154.7 cm Alanna Pennington MD Work Phone: [facility] 09-06-2024 10:02-0400 Body mass index (BMI) [Ratio] 31.97 kg/m2 Alanna Pennington MD Work Phone: [facility] 09-06-2024 10:02-0400 Body temperature 97 [degF] Alanna Pennington MD Work Phone: [facility] [facility] 09-06-2024 10:02-0400 Body weight 76.52 kg Alanna Pennington MD Work Phone: [facility] 09-06-2024 10:02-0400 Diastolic blood pressure 85 mm[Hg] Alanna Pennington MD Work Phone: [facility] 09-06-2024 10:02-0400 Heart rate 85 /min Alanna Pennington MD Work Phone: [facility] 09-06-2024 10:02-0400 Respiratory rate 16 /min Alanna Pennington MD Work Phone: [facility] 09-06-2024 10:02-0400 SaO2% (BldA) [Mass fraction] 96 % Alanna Pennington MD Work Phone: [facility] 09-06-2024 10:02-0400 Systolic blood pressure 135 mm[Hg] Alanna Pennington MD Work Phone: [facility] 08-07-2024 13:17-0400 Body temperature 97.2 [degF] Yanet Pacheco MD Work Phone: [facility] 08-07-2024 13:17-0400 Diastolic blood pressure 74 mm[Hg] Yanet Pacheco MD Work Phone: [facility] 08-07-2024 13:17-0400 Heart rate 70 /min Yanet Pacheco MD Work Phone: [facility] 08-07-2024 13:17-0400 Respiratory rate 16 /min Yanet Pacheco MD Work Phone: [facility] 08-07-2024 13:17-0400 SaO2% (BldA) [Mass fraction] 98 % Yanet Pacheco MD Work Phone: [facility] 08-07-2024 13:17-0400 Systolic blood pressure 146 mm[Hg] Yanet Pacheco MD Work Phone: [facility] 08-07-2024 06:37-0400 Body height 152.4 cm Yanet Pacheco MD Work Phone: [facility] 08-07-2024 06:37-0400 Body mass index (BMI) [Ratio] 31 kg/m2 Yanet Pacheco MD Work Phone: [facility] 08-07-2024 06:37-0400 Body weight 72 kg Yanet Pacheco MD Work Phone: [facility] 07-18-2024 11:21-0500 Body height 153.1 cm Yanet Pacheco MD Work Phone: [facility] 07-18-2024 11:21-0500 Body mass index (BMI) [Ratio] 31.91 kg/m2 Yanet Pacheco MD Work Phone: [facility] 07-18-2024 11:21-0500 Body temperature 97 [degF] Yanet Pacheco MD Work Phone: [facility] 07-18-2024 11:21-0500 Body weight 74.8 kg Yanet Pacheco MD Work Phone: [facility] 07-18-2024 11:21-0500 Diastolic blood pressure 80 mm[Hg] Yanet Pacheco MD Work Phone: [facility] 07-18-2024 11:21-0500 Heart rate 90 /min Yanet Pacheco MD Work Phone: [facility] 07-18-2024 11:21-0500 Respiratory rate 18 /min Yanet Pacheco MD Work Phone: [facility] 07-18-2024 11:21-0500 SaO2% (BldA) [Mass fraction] 97 % Yanet Pacheco MD Work Phone: [facility] 07-18-2024 11:21-0500 Systolic blood pressure 127 mm[Hg] Yanet Pacheco MD Work Phone: [facility] 06-13-2024 08:33-0500 Body mass index (BMI) [Ratio] 31.84 kg/m2 Talon Treva DO Work Phone: [facility] 06-13-2024 08:33-0500 Body weight 74.57 kg Talon Treva DO Work Phone: [facility] 06-13-2024 08:33-0500 Diastolic blood pressure 82 mm[Hg] Talon Treva DO Work Phone: [facility] 06-13-2024 08:33-0500 Systolic blood pressure 120 mm[Hg] Talon Treva DO Work Phone: [facility] Healthcare Encounters Encounter Date Encounter Type Care Provider Facility Start: 01-16-2025 End: 01-16-2025 ambulatory Monroe Whitaker JR Work Phone: [facility] Work Phone: Start: 01-16-2025 End: 01-16-2025 Patient encounter procedure Maria Child [employer] [facility] Work Phone: Start: 12-08-2024 End: 12-08-2024 Postop follow up visit related to original px Harsha Ojeda MD Work Phone: [facility] Comment on above: Neurofibroma of thor ax (Primary Dx) Start: 12-08-2024 End: 12-08-2024 Subsequent hospital visit by physician Kimberlee X-Ray 1 [facility] Comment on above: Mediastinal mass Start: 12-08-2024 End: 12-08-2024 ambulatory HARSHA OJEDA [facility] Start: 11-20-2024 End: 11-21-2024 Evaluation and management of inpatient Harsha Ojeda MD Work Phone: [facility] Comment on above: Neurofibroma of thor ax (Primary Dx); Acute postoperative pain Start: 11-19-2024 Evaluation and manag ement of inpatient HARSHA OJEDA [facility] Start: 11-02-2024 End: 11-02-2024 ambulatory [facility] Start: 10-23-2024 End: 10-23-2024 Office outpatient visit 40 minutes Alanna Pennington MD Work Phone: [facility] Comment on above: Melanoma of back (Mu lti) Start: 10-23-2024 End: 10-23-2024 ambulatory [facility] Start: 10-13-2024 End: 10-13-2024 ambulatory HARSHA [facility] Start: 10-09-2024 End: 10-09-2024 Subsequent hospital visit by physician Dede Ct 3 [facility] Comment on above: Melanoma of back (Mu lti) Start: 10-09-2024 End: 10-09-2024 ambulatory [facility] Start: 10-04-2024 End: 10-04-2024 Office outpatient visit 40 minutes Alanna Pennington MD Work Phone: [facility] Comment on above: Melanoma of back (Mu lti) (Primary Dx) Start: 10-04-2024 End: 10-04-2024 ambulatory [facility] Start: 09-29-2024 End: 09-29-2024 Office outpatient visit 40 minutes Alanna Pennington MD Work Phone: [facility] Comment on above: Melanoma of back (Mu lti) Start: 09-29-2024 End: 09-29-2024 ambulatory [facility] Start: 09-26-2024 End: 09-26-2024 Subsequent hospital visit by physician Dede [id number] [facility] Comment on above: Melanoma of back (Mu lti) Arrived Start: 09-26-2024 End: 09-26-2024 ambulatory [facility] Start: 09-06-2024 End: 09-06-2024 Office outpatient new 60 minutes Alanna Pennington MD Work Phone: [facility] Comment on above: Melanoma of back (Mu lti) Start: 09-06-2024 End: 09-07-[address] [facility] Start: 08-29-2024 End: 08-29-2024 Postop follow up visit related to original px Yanet Pacheco MD Work Phone: [facility] Comment on above: Melanoma of back (Mu lti) (Primary Dx) Start: 08-29-2024 End: 08-29-2024 amb[address] Almaguer LION [facility] Start: 08-07-2024 End: 08-07-2024 ambulatory [facility] Start: 08-07-2024 End: 08-07-2024 Subsequent hospital visit by physician Kimberlee Jensen 3 [facility] Comment on above: Arrived Melanoma of back (Mu lti) Start: 08-07-2024 End: 08-07-2024 Subsequent hospital visit by physician Yanet Pacheco MD Work Phone: [facility] Comment on above: Melanoma of back (Mu lti) (Primary Dx) Start: 07-19-2024 ambulatory YANET PACHECO [facility] Start: 07-18-2024 End: 07-18-2024 Office outpatient new 45 minutes Yanet Pacheco MD Work Phone: [facility] Comment on above: Melanoma of back (Mu lti) (Primary Dx) Start: 07-18-2024 End: 07-18-[address] [facility] Start: 06-13-2024 End: 06-13-2024 Bamboo flowsheet Talon Treva DO Work Phone: [facility] Start: 06-13-2024 End: 06-19-2024 Bamboo flowsheet Talon Treva DO Work Phone: [facility] Start: 06-13-2024 End: 06-19-2024 Clinisync Result Encounter Talon Treva DO Work Phone: [facility] Unsolicited Start: 06-13-2024 End: 06-13-2024 Patient encounter procedure Talon Bellao DO Work Phone: [facility] Start: 06-13-2024 End: 06-13-2024 Periodic preventive med est patient 40-64yrs Talon Treva DO Work Phone: [facility] Comment on above: Well woman exam with routine gynecological exam Start: 06-13-2024 End: 06-13-2024 ambulatory TALON TILLEY Not Available Start: 11-03-2023 End: 11-03-2023 ambulatory MARIA RICE Not Available Start: 01-18-2023 End: 01-18-2023 ambulatory Monroe Whitaker Facility:[facility] Start: 01-18-2023 End: 01-18-2023 ambulatory JR Monroe Whitaker Work Phone: [facility] Work Phone: Start: 01-18-2023 End: 01-18-2023 Patient encounter procedure JR Monroe Whitaker Work Phone: [facility] [address] Work Phone: Start: 01-04-2023 ambulatory MONROE WHITAKER Facility :[facility] Start: 05-06-2022 End: 05-07-[address] DELGADO BINGHAM Facility:[facility] Start: 04-28-2022 End: 04-28-[address] DELGADO BINGHAM Facility:[facility] Start: 04-07-2022 Encounter for genera l adult medical examination without abnormal findings DR MONROE WHITAKER [facility] Start: 04-03-2022 End: 04-04-[address] MONROE WHITAKER Facility:[facility] Start: 04-03-2022 End: 04-04-2022 Encounter for general adult medical examination without abnormal findings DR MONROE WHITAKER Facility:[facility] Start: 12-09-2021 End: 12-10-2021 ambulatory NIKKI KENNEY Facility:[facility] Start: 10-08-2021 End: 10-08-2021 Patient encounter procedure MD Emmanuel Laughlin Work Phone: [facility] [address] Start: 09-30-2021 End: 09-30-2021 Patient encounter procedure MD Emmanuel Laughlin Work Phone: [facility] [address] Procedures Date Procedure Procedure Detail Performing Clinician Start: 11-21-2024 Radiologic exam ches t single view Partha Rocha [employer]UCTURAL REPAIRER Work Phone: Start: 11-21-2024 Radiologic exam ches t single view Arielle Shah [employer]URAL REPAIRER Work Phone: Start: 11-21-2024 Basic metabolic pane l calcium total Arielle Shah [employer]UCTURAL REPAIRER Work Phone: Start: 11-20-2024 PULSE OXIMETRY, SPOT Ra kirsten Shah [employer]UCTURAL REPAIRER Work Phone: Start: 11-20-2024 Ecg routine ecg w/le ast 12 lds trcg only w/o i&r Arielle Shah [employer] STRUCTURAL REPAIRER Work Phone: Start: 11-20-2024 PULSE OXIMETRY, SPOT Ra kirsten Shah [employer]-AIRCRAFT STRUCTURAL REPAIRER Work Phone: Start: 11-20-2024 Radiologic exam ches t single view Arielle Shah [employer] STRUCTURAL REPAIRER Work Phone: Start: 11-20-2024 PULSE OXIMETRY, CONTINUOUS Joanna Hodges MD Work Phone: Start: 11-20-2024 Blood typing serolog ic rh (d) Harsha Ojeda MD Work Phone: Start: 09-26-2024 Mri brain brain stem w/o w/contrast material Alanna Pennington MD Work Phone: Start: 09-26-[address] attenuation whole body Alanna Pennington MD Work Phone: Start: 08-07-2024 Ecg routine ecg w/le ast 12 lds trcg only w/o i&r Yanet Pacheco MD Work Phone: Start: 08-07-2024 Lymphatics & lymph n odes imaging Yanet Pacheco MD Work Phone: Start: 06-13-2024 IGP,APTIMA HPV,AGE GDLN Talonike Bellao DO Work Phone: Start: 06-13-2024 Microscopic observat ion [Identifier] in Cervix by Cyto stain Yanet Pacheco MD Work Phone: Start: 05-31-2024 Mammography Talon Fameenu o DO Work Phone: Start: 06-09-2023 Microscopic observat ion [Identifier] in Cervix by Cyto stain Talon Treva DO Work Phone: Start: 06-09-2023 Cytp cerv/vag auto t hin layer prep mnl screen Talonike Bellao DO Work Phone: Start: 05-06-2022 Mammography Yanet chapa MD Work Phone: Start: 10-01-2021 Plain chest X-ray MD Bebeto Laughlin Work Phone: Plan of Treatment Date Care Activity Detail Author Start: 03-25-2033 DTaP/Tdap/Td Vaccines (2 - Td or Tdap) DTaP/Tdap/Td Vaccines (2 - Td or Tdap) [facility] Start: 2028 Zoster Vaccines (1 of 2) Zoster Vaccines (1 of 2) [facility] Start: 06-09-2028 Screening for malignant neoplasm of cervix [facility] Start: 11-22-2027 Diabetes mellitus screening Diabetes Screening [facility] Start: 06-13-2027 Screening for malignant neoplasm of cervix [facility] Start: 06-18-2025 End: 06-18-2025 Patient encounter procedure 06/18/2025 8:30 AM EST Office Visit [facility] [address] [place] [id number] Talon Tilley, DO [address] [place] [address] [facility] Start: 06-14-2025 Yearly Adult Physical Yearly Adult Physical [facility] Start: 05-31-2025 Screening for malignant neoplasm of breast Mammogram [facility] Start: 04-24-2025 End: 10-23-2025 Creatinine [Mass/volume] in Serum or Plasma Creatinine Lab Routine Melanoma of back (Multi) Expected: 04/24/2025 (Approximate), Expires: 10/23/2025 [facility] Service Area Work Phone: Comment on above: Expected: 04/24/2025 (Approximate), Expi res: 10/23/2025 Start: 04-24-2025 End: 10-23-2025 CT Chest and Abdomen and Pelvis W contrast IV CT chest abdomen pelvis w IV contrast Imaging Routine Melanoma of back (Multi) Expected: 04/24/2025, Expires: 10/23/2025 [facility] Work Phone: Comment on above: Expected: 04/24/2025, Expires: Start: 01-22-2025 Influenza vaccination [facility] Start: 12-08-2024 End: 12-08-2024 Patient encounter procedure 12/08/2024 11:30 AM EDT Office Visit [facility] [address] [phone] [place] [address] [place] [address] [facility] Start: 11-06-2024 End: 11-06-2024 Admission to same day surgery center 11/06/2024 7:05 AM EDT - 11/06/2024 9:55 AM EDT Surgery [facility] [place] [address] [place] [address] [place] [address] [place] [address] Robotic assisted posteiror mediastinal mass resection - left chest [11891 (CPT )] [facility] Comment on above: Robotic assisted posteiror mediastinal m ass resection - left chest [88862 (CPT )] Start: 11-06-2024 Subsequent hospital visit by physician 11/06/2024 7:05 AM EDT Hospital Encounter [facility] [place] [address] [place] [address] [place] [address] [place] [address] [facility] [place] Start: 11-06-2024 End: 11-06-2024 Thoracoscopy w/exc mediastinal cyst tumor/mass EXCISION, TISSUE, MEDIASTINUM, ROBOT-ASSISTED Neurofibroma of thorax 11/06/2024 7:05 AM EDT [facility] Start: 11-01-2024 End: 11-01-2024 Patient encounter procedure 11/01/2024 9:00 AM EDT Office Visit [facility] [address] [place] [address] Maria Rice PA [address] [place] [address] [facility] Start: 10-23-2024 End: 10-23-2024 Telemedicine consultation with patient 10/23/2024 4:40 PM EDT Telemedicine [facility] [address] [place] [phone] [place] [address] [place] [address] [facility] Start: 10-13-2024 End: 10-13-2024 Patient encounter procedure 10/13/2024 1:45 PM EDT Office Visit [facility] [address] [phone] [place] [address] [place] [address] [facility] Start: 10-04-2024 End: 10-04-2024 Telemedicine consultation with patient [facility] Start: 10-04-2024 End: 10-04-2025 Consult to Interventional Radiology Consult to Interventional Radiology Imaging STAT Melanoma of back (Multi) Expected: 10/04/2024, Expires: 10/04/2025 [facility] Service [facility] Work Phone: Comment on above: Expected: 10/04/2024, Expires: Start: 09-06-2024 End: 09-06-2025 MR Brain WO and W contrast IV MR brain w and wo IV contrast Imaging Routine Melanoma of back (Multi) Expected: 09/06/2024, Expires: 09/06/2025 [facility] Work Phone: Comment on above: Expected: 09/06/2024, Expires: Start: 09-06-2024 End: 09-06-2025 NM Whole body Bone Views NM PET CT whole body Imaging Routine Melanoma of back (Multi) Expected: 09/06/2024, Expires: 09/06/2025 [facility] Service [facility] Work Phone: Comment on above: Expected: 09/06/2024, Expires: Start: 08-07-2024 Subsequent hospital visit by physician 08/07/2024 Hospital Encounter [facility] [place] [address] [place] [phone] [place] [address] [address] [place] [address] [facility] [place] Start: 07-18-2024 End: 07-18-2025 NM Lymphatic vessels Views W radionuclide intra lymphatic NM lymphoscintigram Imaging Routine Melanoma of back (Multi) Expected: 07/18/2024, Expires: 07/18/2025 [facility] Service [facility] Work Phone: Comment on above: Expected: 07/18/2024, Expires: Start: 06-13-2024 End: 06-13-2024 Patient encounter procedure 06/13/2024 8:30 AM EST Office Visit [facility] [address] [place] [address] Talon Tilley DO [address] [place] [address] Arrived [facility] Comment on above: Arrived Start: 01-23-2024 COVID-19 Vaccine () COVID-19 Vaccine () [facility] Start: 01-23-2024 COVID-19 Vaccine () COVID-19 Vaccine () [facility] Start: 01-23-2024 Influenza vaccination Influenza Vaccine (#1) [facility] Start: 05-06-2023 Screening for malignant neoplasm of breast Mammogram [facility] Start: 08-12-1999 Screening for malignant neoplasm of cervix HPV/Cotest [facility] Start: 1997 Hepatitis B Vaccines (1 of 3 - 19+ 3-dose series) Hepatitis B Vaccines (1 of 3 - 19+ 3-dose series) [facility] Start: 1996 Diabetes mellitus screening Diabetes Screening [facility] Start: 1996 Hepatitis C screening Hepatitis C Screening [facility] Start: 08-12-1979 MMR Vaccines (1 of 1 - Standard series) MMR Vaccines (1 of 1 - Standard series) [facility] Start: 02-11-1979 Examination of skin Derm Melanoma Skin Check [facility] Start: 1978 HIV screening HIV Screening [facility] Start: 1978 Lipid panel Lipid Panel [facility] Start: 1978 Screening for malignant neoplasm of colon [facility] Start: 1978 Skin Cancer Screening Skin Cancer Screening [facility] Start: 1978 Yearly Adult Physical Yearly Adult Physical [facility] Aldolase measurement [facility] Work Phone: aPTT.lupus sensitive (LA screen) [facility] Work Phone: aPTT.lupus sensitive W excess phospholipid actual/Normal (normalized LA confirm) [facility] Work Phone: aPTT.lupus sensitive/aPTT.lupus sensitive W excess phospholipid (screen to confirm ra [facility] Work Phone: End: 11-25-2024 Basic metabolic 2000 panel - Serum or Plasma Basic metabolic panel Lab Routine Morning draw (Lab) for 5 Occurrences starting 11/21/2024 until 11/25/2024, 1 completed [facility] Work Phone: Comment on above: Morning draw (Lab) for 5 Occurrences sta rting 11/21/2024 until 11/25/2024, 1 completed Bx/exc lymph node op en deep axillary node BIOPSY, LYMPH NODE, AXILLARY Melanoma of back (Multi) [facility] End: 11-25-2024 CBC panel - Blood by Automated count CBC Lab Routine Morning draw (Lab) for 5 Occurrences starting 11/21/2024 until 11/25/2024, 1 completed [facility] Work Phone: Comment on above: Morning draw (Lab) for 5 Occurrences sta rting 11/21/2024 until 11/25/2024, 1 completed End: 08-07-2024 Choriogonadotropin ( test) [Presence] in Urine POCT , urine Point of Care Testing Routine Once (Lab) for 1 Occurrences starting 08/07/2024 until 08/07/2024 [facility] Service Area Work Phone: Comment on above: Once (Lab) for 1 Occurrences starting until 08/07/2024 Chromatin Ab [Units/ volume] in Serum or Plasma [facility] Work Phone: Complement C3 [Mass/ volume] in Serum or Plasma [facility] Work Phone: Complement C4 [Mass/ volume] in Serum or Plasma [facility] Work Phone: End: 08-07-2024 Continuous Pulse oximetry, In Phase 1 Continuous Pulse oximetry, In Phase 1 Respiratory Care Routine Continuous until discontinued starting 08/07/2024 [facility] Service [facility] Work Phone: Comment on above: Continuous until discontinued starting 0 08/07/2024 End: 10-09-2024 CT Guidance for biopsy of Mediastinum [facility] Service [facility] Work Phone: Comment on above: Once for 1 Occurrences starting 10/10/19 until 10/09/2024 Dermatopathology- DERM LAB [place] [facility]- [facility]M LAB Pathology and Cytology Routine Melanoma of back (Multi) Release Upon Ordering for 1 Occurrences starting 08/07/2024 [facility] Work Phone: Comment on above: Release Upon Ordering for 1 Occurrences starting 08/07/2024 dRVVT (LA screen) [facility] Work Phone: Electrocardiogram, 12-lead Elect rocardiogram, 12-lead ECG Routine 08/07/2024 9:36 AM EDT [facility] Work Phone: Excision tumor soft tis back/flank subq 3 cm/> EXCISION, LESION, BACK Melanoma of back (Multi) [facility] Hemolytic complement CH50 level [facility] Work Phone: Homogenous nuclear A b pattern [Titer] in Serum [facility] Work Phone: End: 11-20-2024 Incentive spirometry Incentive spirometry Respiratory Care Routine Once for 1 Occurrences starting 11/20/2024 until 11/20/2024 [facility] Work Phone: Comment on above: Once for 1 Occurrences starting 11/21/19 until 11/20/2024 Lupus anticoagulant [Interpretation] in Platelet poor plasma [facility] Work Phone: End: 11-25-2024 Magnesium [Mass/volume] in Serum or Plasma Magnesium Lab Routine Morning draw (Lab) for 5 Occurrences starting 11/21/2024 until 11/25/2024, 1 completed [facility] Work Phone: Comment on above: Morning draw (Lab) for 5 Occurrences sta rting 11/21/2024 until 11/25/2024, 1 completed Myoglobin [Mass/volu me] in Serum or Plasma [facility] Work Phone: Nuclear Ab [Titer] in Serum [facility] Work Phone: End: 11-20-2024 Prepare RBC: 2 Units Prepare RBC: 2 Units Blood Bank Routine Once for 1 Occurrences starting 11/20/2024 until 11/20/2024 [facility] Service [facility] Work Phone: Comment on above: Once for 1 Occurrences starting 11/21/19 until 11/20/2024 Pulse oximetry, spot Pulse oxime try, spot Respiratory Care Routine Every 4 hours until discontinued starting 11/20/2024, 7 completed [facility] Work Phone: Comment on above: Every 4 hours until discontinued startin g 11/20/2024, 7 completed Reagin Ab [Presence] in Serum by RPR [facility] Work Phone: Surgical pathology study Surgica l Pathology Exam Pathology and Cytology Routine Melanoma of back (Multi) Release Upon Ordering for 1 Occurrences starting 08/07/2024 [facility] Work Phone: Comment on above: Release Upon Ordering for 1 Occurrences starting 08/07/2024 End: 10-09-2024 Surgical pathology study Surgical Pathology Exam Pathology and Cytology Routine Once (Lab) for 1 Occurrences starting 10/09/2024 until 10/09/2024 [facility] [facility] Work Phone: Comment on above: Once (Lab) for 1 Occurrences starting until 10/09/2024 Surgical pathology study [facility] Service Area Work Phone: Comment on above: Release Upon Ordering for 1 Occurrences starting 11/20/2024, 1 completed THIN PREP TIS PAP AN D HR HPV DNA THIN PREP TIS PAP AND HR HPV DNA Pathology and Cytology Routine Well woman exam with routine gynecological exam Ordered: 06/13/2024 [facility] Work Phone: Comment on above: Ordered: 06/13/2024 Thrombin time [facility] Work Phone: Thyroglobulin Ab [Units/volume] in Serum or Plasma [facility] Work Phone: Thyroperoxidase Ab [Units/volume] in Serum or Plasma [facility] Work Phone: End: 12-08-2024 XR Chest 2 Views [facility] Service Area Work Phone: Comment on above: Once for 1 Occurrences starting 12/09/19 25 until 12/08/2024 End: 11-25-2024 XR Chest Single view XR chest 1 view Imaging Routine Daily for 5 Occurrences starting 11/21/2024 until 11/25/2024, 1 completed [facility] Work Phone: Comment on above: Daily for 5 Occurrences starting 025 until 11/25/2024, 1 completed Immunizations Immunization Date Immunization Notes Care Provider Kervin lam 03-27-2023 influenza virus vacc ine, unspecified formulation Talon Trevamahteus [facility] Work Phone: [facility] Payers Date Payer Category Payer Self-pay [id number] 2021 Blue [employer] Blue Shield BCBS [id number] 2021 Blue Cross [facility] [id number] 1978 Unknown [id number] 2.16.840.1.385082.3.579. 2.593 1978 Unknown [id number] 2.16.840.1.583695.3.579. 2.593 1978 Unknown [id number] 2.16.840.1.434888.3.579. 2.593 1978 Unknown [id number] 2.16.840.1.066900.3.579. 2.593 1978 Unknown [id number] 2.16.840.1.098029.3.579. 2.1259 1978 Unknown [id number] 2.16840.1.719692.3.579. 2.1259 1978 Unknown [id number] 2.16.840.1.143064.3.579. 2.124 1978 Unknown [id number] 2.16.840.1.633774.3.579. 2.124 1978 Unknown [id number] 2.16840.1.176394.3.579. 2.1245 1978 Unknown [id number] 2.16840.1.703036.3.579. 2.124 1978 Unknown [id number] 2.16.840.1.525106.3.579. 2.124 1978 Unknown [id number] 2.16.840.1.866100.3.579. 2.124 1978 Unknown [id number] 2.16.840.1.063757.3.579. 2.124 1978 Unknown [id number] 2.16.840.1.819942.3.579. 2.124 1978 Unknown [id number] 2.16.840.1.124659.3.579. 2.5 1978 Unknown [id number] 2.16.840.1.201991.3.579. 2.1244 1978 Unknown [id number] 2.16.840.1.613744.3.579. 2.1244 1978 Unknown [id number] 2.16.840.1.136550.3.579. 2.1245 1978 Unknown [id number] 2.16.840.1.599060.3.579. 2.1245 1978 Unknown [id number] 2.16.840.1.462168.3.579. 2.1245 1978 Unknown [id number] 2.16.840.1.148268.3.579. 2.1245 1978 Unknown [id number] 2.16.840.1.606551.3.579. 2.1245 1978 Unknown [id number] 2.16.840.1.159440.3.579. 2.1245 1978 Unknown [id number] 2.16.840.1.831869.3.579. 2.1245 1978 Unknown [id number] 2.16.840.1.678803.3.579. 2.1246 1959 Unknown [id number] 1961 Unknown [id number] Unknown [place] BC/BS [id number] Unknown [id number] 2.16.840.1.632930.3.579. 2.531 Social History Date Type Detail Facility [facility] Work Phone: Start: 1980 Sex Assigned At Female [facility] Start: 06-07-2023 End: 01-16-2025 Tobacco smoking status NHIS Never smoked tobacco [facility] Start: 11-03-2023 End: 10-13-2024 Alcoholic beverage intake Current drinker of alcohol (finding) [facility] Start: 11-02-2023 End: 09-06-2024 [facility] of [facility] Start: 11-02-2023 End: 09-06-2024 Alcohol Use Disorder Identification Test - Consumption [...] 1980 Sex assigned at Not on file [facility] Start: 07-18-2024 Tobacco use and exposure Smokeless tobacco non-user [facility] Work Phone: Start: 07-08-2024 End: 11-02-2024 Exposure to SARS-CoV-2 (event) Not sure [facility] Start: 07-26-2024 Alcohol Comment depends on the week's plans [facility] Work Phone: Start: 08-19-2024 End: 09-29-2024 Exposure to SARS-CoV-2 (event) Unable to assess [facility] Has the [employer], [employer], oil, or water company threatened to shut off services in your home in past 12Mo No [facility] Are you now , , , , never or living with a partner? [facility] Work Phone: How often to you hav e a drink containing alcohol? 2-3 time sa week [facility] Work Phone: Start: 07-07-2024 How hard is it for you to pay for the very basics like food, housing, medical care, and heating Not hard at all [facility] Work Phone: Do you feel stress - tense, restless, nervous, or anxious, or unable to sleep at night because your mind is troubled all the time - these days [OSQ] To some extent [facility] Work Phone: (I/We) worried wheth er (my/our) food would run out before (I/we) got money to buy more. Never true [facility] Work Phone: Start: 11-20-2024 End: 12-08-2024 Alcoholic beverage intake Ex-drinker (finding) [facility] Work Phone: Sex Female (finding) [facility] Goals Date Patient Goal Desired Activity /State Personal health goal Functional Status Date Assessment Result Facility 12-08-2024 Patient Health Quest ionnaire 2 item (PHQ-2) [Reported] [facility] Work Phone: 11-20-2024 Total score [AUDIT-C] 2 11/21/19 25 12:18 PM Melissa Costa RN [facility] Work Phone: 11-20-2024 Patient Health Quest ionnaire 2 item (PHQ-2) [Reported] [facility] Work Phone: 11-20-2024 [place] - suicide s everity rating scale screener - recent [C-SSRS] [facility] Work Phone: 09-06-2024 PHQ-9 quick depressi on assessment panel [Reported.PHQ] [facility] Work Phone: 09-06-2024 Total score [AUDIT-C] 3 09/07/19 25 10:14 AM Francheska Soares, CARLOS [facility] Work Phone: 09-06-2024 Humiliation, Afraid, Rape, and Kick questionnaire [HARK] [facility] Work Phone: 09-06-2024 Patient Health Quest ionnaire 2 item (PHQ-2) [Reported] [facility] Work Phone: 09-06-2024 [place] - suicide s everity rating scale screener - recent [C-SSRS] [facility] Work Phone: [facility] Work Phone: [facility] Work Phone: Clinical Notes 12-10-2021 to 12-08-2024 Harsha Ojeda MD - 12/08/2024 11:30 AM [facility] Erick Toledo RN - 11/21/2024 12:07 PM [facility] Erick Toledo RN - 11/21/2024 12:07 PM Manuelito Toledo RN - 11/21/2024 12:05 PM EDT Note Date & Type Note Facility 12-08-2024 History of Present illness Narrative Subjective Shawna Grigsby is a 44 y.o. female with a pmhx of HLD, neurofibromatosis, hydrocephalus with HOSPITAL NURSE shunt, and melanoma of the back s/p WLE who presents today for postop follow up. Patient underwent robotic assisted posterior mediastinal mass on 11/20/24 for neurofibroma. Did well postop. Hospital course was uncomplicated. She endorsed some numbness around her left axilla and some tingling around the forearm. She is otherwise recovered well. There is no significant change in patient's past medical history, past surgical history, social history, family history, or review of systems since last visit. Objective Visit Vitals BP (!) 145/96 Pulse 101 Temp 36 C (96.8 F) Physical Exam Vitals reviewed. Constitutional: Appearance: Normal appearance. HENT: Head: Normocephalic and atraumatic. Eyes: General: No scleral icterus. Extraocular Movements: Extraocular movements intact. Pupils: Pupils are equal, round, and reactive to light. Cardiovascular: Rate and Rhythm: Normal rate and regular rhythm. Heart sounds: No murmur heard. Pulmonary: Effort: Pulmonary effort is normal. Breath sounds: Normal breath sounds. No wheezing. Comments: Left chest incisions c/d/I Abdominal: General: Abdomen is flat. There is no distension. Palpations: Abdomen is soft. Tenderness: There is no abdominal tenderness. There is no guarding. Musculoskeletal: General: No swelling or tenderness. Normal range of motion. Cervical back: Normal range of motion and neck supple. Skin: General: Skin is warm and dry. Coloration: Skin is not jaundiced. Neurological: General: No focal deficit present. Mental Status: She is alert and oriented to person, place, and time. Mental status is at baseline. Psychiatric: Mood and Affect: Mood normal. Behavior: Behavior normal. Diagnostic Review I have reviewed CXR 12/08/24. It showed clear lung field, no ptx or effusion noted I reviewed the operative note. It showed posterior mediastinal mass involved the sympathetic chain above 2nd rib and 2nd intercostal nerve. Resected en-bloc. No pleural implants or invasion noted. Assessment/Plan Shawna Grigsby is doing well. Surgical pathology is still pending. I will call her when that is back. I recommend follow up in [address] chest for surveillance. Harsha Ojeda MD Thoracic Surgeon [facility] [employer] [facility] Office phone: Pager: [phone] documented in this encounter [facility] Work Phone: 11-21-2024 Plan of care note The clinical goals for the shift include pain control Problem: Pain - Adult Goal: Verbalizes/displays adequate comfort level or baseline comfort level Outcome: Adequate for Discharge Problem: Safety - Adult Goal: Free from fall injury Outcome: Adequate for Discharge Problem: Discharge Planning Goal: Discharge to home or other facility with appropriate resources Outcome: Adequate for Discharge Problem: Chronic Conditions and Co-morbidities Goal: Patient's chronic conditions and co-morbidity symptoms are monitored and maintained or improved Outcome: Adequate for Discharge Problem: Nutrition Goal: Nutrient intake appropriate for maintaining nutritional needs Outcome: Adequate for Discharge Problem: Skin Goal: Decreased wound size/increased tissue granulation at next dressing change Outcome: Adequate for Discharge Goal: Participates in plan/prevention/treatment measures Outcome: Adequate for Discharge Goal: Prevent/manage excess moisture Outcome: Adequate for Discharge Goal: Prevent/minimize sheer/friction injuries Outcome: Adequate for Discharge Goal: Promote/optimize nutrition Outcome: Adequate for Discharge Goal: Promote skin healing Outcome: Adequate for Discharge Problem: Pain Goal: Takes deep breaths with improved pain control throughout the shift Outcome: Adequate for Discharge Goal: Turns in bed with improved pain control throughout the shift Outcome: Adequate for Discharge Goal: Walks with improved pain control throughout the shift Outcome: Adequate for Discharge Goal: Performs ADL's with improved pain control throughout shift Outcome: Adequate for Discharge Goal: Participates in PT with improved pain control throughout the shift Outcome: Adequate for Discharge Goal: Free from opioid side effects throughout the shift Outcome: Adequate for Discharge Goal: Free from acute confusion related to pain meds throughout the shift Outcome: Adequate for Discharge [facility] Work Phone: 11-21-2024 Miscellaneous Notes The clinical goals for the shift include pain control Problem: Pain - Adult Goal: Verbalizes/displays adequate comfort level or baseline comfort level Outcome: Adequate for Discharge Problem: Safety - Adult Goal: Free from fall injury Outcome: Adequate for Discharge Problem: Discharge Planning Goal: Discharge to home or other facility with appropriate resources Outcome: Adequate for Discharge Problem: Chronic Conditions and Co-morbidities Goal: Patient's chronic conditions and co-morbidity symptoms are monitored and maintained or improved Outcome: Adequate for Discharge Problem: Nutrition Goal: Nutrient intake appropriate for maintaining nutritional needs Outcome: Adequate for Discharge Problem: Skin Goal: Decreased wound size/increased tissue granulation at next dressing change Outcome: Adequate for Discharge Goal: Participates in plan/prevention/treatment measures Outcome: Adequate for Discharge Goal: Prevent/manage excess moisture Outcome: Adequate for Discharge Goal: Prevent/minimize sheer/friction injuries Outcome: Adequate for Discharge Goal: Promote/optimize nutrition Outcome: Adequate for Discharge Goal: Promote skin healing Outcome: Adequate for Discharge Problem: Pain Goal: Takes deep breaths with improved pain control throughout the shift Outcome: Adequate for Discharge Goal: Turns in bed with improved pain control throughout the shift Outcome: Adequate for Discharge Goal: Walks with improved pain control throughout the shift Outcome: Adequate for Discharge Goal: Performs ADL's with improved pain control throughout shift Outcome: Adequate for Discharge Goal: Participates in PT with improved pain control throughout the shift Outcome: Adequate for Discharge Goal: Free from opioid side effects throughout the shift Outcome: Adequate for Discharge Goal: Free from acute confusion related to pain meds throughout the shift Outcome: Adequate for Discharge The patient's goals for the shift include sleep The clinical goals for the shift include Patient will remain safe without injury throughout this shift. Problem: Pain - Adult Goal: Verbalizes/displays adequate comfort level or baseline comfort level Outcome: Progressing Problem: Safety - Adult Goal: Free from fall injury Outcome: Progressing Problem: Discharge Planning Goal: Discharge to home or other facility with appropriate resources Outcome: Progressing Problem: Chronic Conditions and Co-morbidities Goal: Patient's chronic conditions and co-morbidity symptoms are monitored and maintained or improved Outcome: Progressing Problem: Nutrition Goal: Nutrient intake appropriate for maintaining nutritional needs Outcome: Progressing Problem: Skin Goal: Decreased wound size/increased tissue granulation at next dressing change Outcome: Progressing Flowsheets (Taken 11/21/2024 050) Decreased wound size/increased tissue granulation at next dressing change: Promote sleep for wound healing Protective dressings over bony prominences Utilize specialty bed per algorithm Goal: Participates in plan/prevention/treatment measures Outcome: Progressing Flowsheets (Taken 11/21/2024 050) Participates in plan/prevention/treatment measures: Discuss with provider PT/OT consult Elevate heels Increase activity/out of bed for meals Goal: Prevent/manage excess moisture Outcome: Progressing Flowsheets (Taken 11/21/2024 050) Prevent/manage excess moisture: Cleanse incontinence/protect with barrier cream Follow provider orders for dressing changes Moisturize dry skin Goal: Prevent/minimize sheer/friction injuries Outcome: Progressing Flowsheets (Taken 11/21/2024 050) Prevent/minimize sheer/friction injuries: Complete micro-shifts as needed if patient unable. Adjust patient position to relieve pressure points, not a full turn HOB 30 degrees or less Increase activity/out of bed for meals Turn/reposition every 2 hours/use positioning/transfer devices Use pull sheet Utilize specialty bed per algorithm Goal: Promote/optimize nutrition Outcome: Progressing Flowsheets (Taken 11/21/2024 0504) Promote/optimize nutrition: Assist with feeding Consume > 50% meals/supplements Discuss with provider if NPO > 2 days Monitor/record intake including meals Offer water/supplements/favorite foods Reassess MST if corporate safety director not consulted Goal: Promote skin healing Outcome: Progressing Flowsheets (Taken 11/21/2024 0504) Promote skin healing: Assess skin/pad under line(s)/device(s) Ensure correct size (line/device) and apply per electronics maintenance technician instructions Protective dressings over bony prominences Rotate device position/do not position patient on device Turn/reposition every 2 hours/use positioning/transfer devices Dr. Hodges aware pt. Resting quietly but, when awakened to asked about her pain pt. States pain still [address] Hodges awake of amount of pain meds and OK with pt. Being discharged to SICU at this time. Date: 11/20/2024 OR Location: [facility] Name: Shawna Grigsby, : 1980, Age: 44 y.o., , Sex: female Preop Diagnosis: posterior mediastinal mass Postop Diagnosis: posterior mediastinal mass Procedures: Robotic assisted posterior mediastinal mass resection Intercostal nerve block Bronchoscopy Surgeons: Harsha Ojeda MD Resident/Fellow/Other Metal Casket Assembler: Surgeons and Role: * Tasha Farias PA-C - Assisting Anesthesia: General ASA: III Anesthesia Staff: Anesthesiologist: Joanna Hodges MD CHECK GRADER: Rogelio Clifton APRN-CHRISTOPHER Estimated Blood Loss: 10mL Intra-op Medications: Administrations occurring from 0700 to 0930 on 11/20/24: Medication Name Total Dose BUPivacaine-EPINEPHrine (Marcaine w/EPI) 0.25 %-1:200,000 injection 50 mL sodium chloride 0.9 % irrigation solution 1,000 mL ceFAZolin (Ancef) vial 1 g 2 g dexAMETHasone (Decadron) 4 mg/mL 4 mg esmolol (Brevibloc) 10 mcg/mL IV bolus 50 mg fentaNYL PF 0.05 mg/mL 250 mcg HYDROmorphone (Dilaudid) 1 mg/mL injection 1 mg labetalol 5 mg/mL 10 mg lidocaine (Xylocaine) injection 2 % 40 mg midazolam (Versed) 1 mg/1 mL 2 mg ondansetron 2 mg/mL 4 mg phenylephrine 40 mcg/mL syringe 10 mL 100 mcg 50 mL propofol 10mg/mL 200 mg rocuronium 10 mg/mL 50 mg sugammadex (Bridion) 200 mg/2 mL injection 200 mg Anesthesia Record Intraprocedure I/O Totals Intake Propofol Drip 0.00 mL The total shown is the total volume documented since Anesthesia Start was filed. Total Intake 0 mL Specimen: ID Type Source Tests Collected by Time 1 : POSTERIOR MEDIASTINAL MASS Tissue SOFT TISSUE RESECTION SURGICAL PATHOLOGY EXAM Harsha Ojeda MD 11/20/2024 0849 Staff: Bowstring Maker: Felicity Ruggiero RN Scrub Person: Sherie Tanner; Rupinder Brandon Findings: posterior mediastinal mass involved the sympathetic chain above 2nd rib and 2nd intercostal nerve. Resected en-bloc. No pleural implants or invasion noted. Indication: This is a 44-year-old female with past med history of neurofibromatosis and melanoma who had posterior mediastinal mass identified on screening CT scan. This mass was biopsied showed new fibroma. Given her history of neurofibromatosis, I recommended minimally invasive resection of this mass. The risk of surgery includes bleeding, infection, air leak and postop pain. Given the location of the mass, the involved nerve may be resected en bloc which may include sympathetic chain and intercostal nerves. Patient consented to proceed with surgery. The patient was seen in the preoperative area. The risks, benefits, complications, treatment options, non-operative alternatives, expected recovery and outcomes were discussed with the patient. The possibilities of reaction to medication, pulmonary aspiration, injury to surrounding structures, bleeding, recurrent infection, the need for additional procedures, failure to diagnose a condition, and creating a complication requiring transfusion or operation were discussed with the patient. The patient concurred with the proposed plan, giving informed consent. The site of surgery was properly noted/marked if necessary per policy. The patient has been actively warmed in preoperative area. Preoperative antibiotics have been ordered and given within 1 hours of incision. Venous thrombosis prophylaxis have been ordered including bilateral sequential compression devices and chemical prophylaxis. Operation Details: Patient was brought to operation room. A time-out was performed. Patient name, MRN and procedure were confirmed and all staff were in agreement. Patient received subcutaneous heparin. SCDs were placed and working. Ancef was given prior to incision. Patient was induced and intubated with a double lumen tube without issue. I then performed bronchoscopy through the double lumen tube. This is minimal secretions. The bronchoscopy examination was normal, no endobronchial pathology seen. Then we turned the patient to right decubitus position. All pressure points are padded. Double lumen was confirmed again in correct position. The chest was prepped and draped in sterile fashion. A pre-incision time out was performed. All staff are in agreement to proceed. I placed my 8 mm camera port in the 6th intercostal space anteriorly. The chest was entered through a direct cut down technique without issue and insufflation was started. The patient tolerated it well. The mass was visualized above the aortic arch posterior to left subclavian artery. I then placed 2 additional instrument port in the same intercostal space under visualization. I performed intercostal nerve block using quarter percent Marcaine 5 cc per intercostal space from 4th to 10th space. The robot was then docked and instruments were introduced into the chest under direct visual guidance. I then scrubbed out to the robot console. I circumferentially opened the parietal pleura around the mass with 1 cm margin using cautery. The mass was involving the the second intercostal nerve. The intercostal vascular bundle was resected using a clip on the stay side and cautery on the specimen side. The sympathetic chain was identified along the vertebral body and was involved with the mass. The symptomatic chain was controlled with clip on the stay side and cauterized on the specimen side. I then continued to dissect around the mass circumferentially down to the vertebral body. The mass come off the spine without issue. The intercostal nerve going to the spinal canal was also clipped on the stay side and taken with cautery and the specimen site. Now the mass was completely dissected off. The macroscopic margin was negative and the investing sheath surrounding the mass was not violated. Now the mass was retrieved from the field using EndoCatch bag and passed out to pathology. I ensured hemostasis of the dissection bed. I scrubbed back to the bedside. We confirmed hemostasis at the port sites. I left one [place] chest tubes posteriorly. Then the lung was reinflated without issue under visualization. All the ports are closed with 2-0 Vicryl and 3-0 Monocryl. The final counts were correct. Patient was allowed to be awaken from general anesthesia and brought to recovery area in stable condition. I was present for the entire duration of the procedure. Tasha Houdek is required at bedside as mate first for robotic portion of the case including docking, instrumentation, de-docking, troubleshooting, dissection, and specimen retrieval. Since there is no qualified resident to assist at bedside, her role is critical to ensure the safety of the complex operation. Harsha Ojeda MD Thoracic Surgeon [facility] [employer] [facility] Office phone: Pager: [phone] ADULT SURGERY PRE-OPERATIVE INSTRUCTIONS You will receive notification one business day prior to your surgery to confirm your arrival time and any additional information between 2 P.M. - 5 P.M. It is important that you answer your phone and/or check your messages during this time. You may see in [employer] your surgery start time changes several times even up to the day before your procedure. Please disregard those times and only follow the time given by the lead athlete who will be notifying you via phone and not a text. Please arrive at your scheduled time to avoid delay or cancelled surgery. Please enter the building through either the Main Entrance in front of the hospital or from the Parking Garage Walkway Bridge. From the parking garage, which is free, take the 2nd Floor Walkway Bridge into the hospital and check in at the [facility] Outpatient Desk as you enter the hospital directly in front of you. If you enter through the Main Entrance, take the elevator off the lobby on the right labeled A to the 2nd floor and check in at the [facility] Outpatient Surgery desk as you exit the elevator. Wheelchairs are available for use if using the Main Entrance. Handicap parking in the land lot, in front of hospital by main entrance, wheelchairs are available at this entrance INSTRUCTIONS ABOUT EATING OR DRINKING BEFORE SURGERY: Unless told otherwise by your surgeon, do not eat any solid foods or drink anything after midnight the night prior to your procedure. This also includes no gum, candy, lozenges, ice, or any other oral consumption ADDITIONAL INSTRUCTIONS: Please contact your surgeon s office about any changes in your health, such as bad cold, fever, sore throat, or COVID within the last 4 weeks. Talk to your surgeon for instructions if you should stop your aspirin, NSAIDS, blood thinners, diabetes medicines, weight loss medications, multivitamins or over the counter supplements since many surgeons have you adjust or stop these medications prior to procedure. The doctor s office may also have you contact the prescribing doctor for medication adjustments for your surgery. If you take certain medications such as a Beta Rojelio or Anti-Seizure medication, you may be instructed to take them in the morning of procedure with a sip of water. If this is the case your surgeon's office should let you know, and the PAT nurses will follow up when they speak to you to make sure you are aware. You are allowed 2 adults over the age of 18 to accompany you on the day of surgery. Only one person may be allowed to go back into the pre-operative area with you at a time. If you are not being admitted after your surgery, and you are receiving any type of anesthesia (general, sedation, local, MAC, etc) with your procedure, you must have an adult (age 18 or older) immediately available to drive you home after surgery or your procedure will be cancelled. You may be discharged home after surgery with Uber, Lyft, Taxi or any other transportation service as long as the responsible adult (18 or older) is in the vehicle with you at time of discharge. The bulk driver of these transportation services is not responsible for your care and cannot be considered a responsible adult. We also highly recommend you have someone stay with you for the entire day and night of your surgery. All jewelry and piercings must be removed. If you are unable to remove an item or have a dermal piercing, please be sure to tell the nurse when you arrive for surgery. Nail wallisian must be removed off one finger of each hand Make-up or other beauty products (lotion, deodorant, hairspray, perfume, etc.) must be removed or not used for the day of surgery. Do not wear contacts to hospital, bring your glasses and a case Leave valuables at home except photo ID, insurance card and any co-payment that has been requested by hospital Avoid smoking, consuming alcohol, or any medical or recreational drug use for 24 hours before surgery. To help prevent infection, please take a shower/bath and wash your hair the night before and/or morning of surgery. You can brush your teeth, just do not swallow any water. For adults who are unable to consent or make medical decisions for themselves, a legal guardian or Power of Tray Room Worker must accompany them to the hospital. If this is not possible, please call [phone] to make additional arrangements. Please bring guardianship or legal Power of Tray Room Worker paperwork with you on the day of surgery. Wear comfortable, loose-fitting clothing. Do not bring any home medications with you to the hospital. If you have any questions or concerns, please call Pre-Admission Testing at or your Physician s office Dr. Harsha Ojeda [phone] documented in this encounter [facility] Work Phone: 11-21-2024 Nurse Note Patient and given AVS and reviewed. Patient and verbalized understanding. Reviewed post op care, pain management and new medication. All belongings sent with patient. [facility] 11-21-2024 Nurse Note Patient and given AVS and reviewed. Patient and verbalized understanding. Reviewed post op care, pain management and new medication. All belongings sent with patient. 1100- Pt arrived to sicu 4 connected to monitors. HARDWARE ENGINEER Jacobo at bedside. documented in this encounter [facility] Work Phone: 11-21-2024 Hospital course Narrative Discharge Diagnosis Neurofibroma of thorax Issues Requiring Follow-Up S/p mediastinal mass resection Test Results Pending At Discharge Pending Labs Order Current Status Surgical Pathology Exam In process Hospital Course 44 yo female history of hydrocephalus status post HOSPITAL NURSE shunt, neurofibromatosis, gastroesophageal reflux disease, depression and anxiety, and melanoma on the back followed by oncology, found to have a PET avid mediastinal mass. Surgical resection was recommended. She underwent robotic assisted resection of a posterior mediastinal mass with intercostal nerve block on 11/20/2024. Returned to ICU in stable condition with 1 left pleural chest tube. Overnight course was uneventful. Postop day 1 she is afebrile, hemodynamically stable and maintaining adequate saturations on room air. Spirometry volumes adequate. Postoperative pain is well-controlled with oxycodone. Tolerating diet. Chest x-ray is stable, trivial serosanguineous output from chest tube and no airleak, removed without difficulty. Post removal chest x-ray stable and patient determined to be suitable for discharge to home. Outpatient follow-up arranged in 3 weeks. Visit Vitals BP 114/70 (BP Location: Right arm, Patient Position: Sitting) Pulse 90 Temp 36.8 C (98.2 F) (Temporal) Resp 20 Vitals: 11/21/24 0800 Weight: 73 kg (160 lb 15 oz) Immunization History Administered Date(s) Administered Moderna COVID-19 vaccine, 12 years and older (50mcg/0.5mL)(Spikevax) 03/27/2023 Moderna SARS-CoV-2 Vaccination 08/17/2020, 09/14/2020, 04/18/2021 Results Scheduled medications Scheduled Medications[1] Continuous medications Continuous Medications[2] PRN medications PRN Medications[3] Results for orders placed or performed during the hospital encounter of 11/20/24 (from the past 24 hours) ECG 12 lead Result Value Ref Range Ventricular Rate 85 BPM Atrial Rate 85 BPM HI Interval 166 ms QRS Duration 90 ms QT Interval 390 ms QTC Calculation(Bazett) 464 ms P [place] 52 degrees R [place] -4 degrees T [place] 29 degrees QRS Count 14 beats Q Onset 221 ms P Onset 138 ms P Offset 188 ms T Offset 416 ms QTC Fredericia 438 ms CBC Result Value Ref Range WBC 8.8 4.4 - 11.3 x10*3/uL nRBC 0.0 0.0 - 0.0 /100 WBCs RBC 3.96 (L) 4.00 - 5.20 x10*6/uL Hemoglobin 12.3 12.0 - 16.0 g/dL Hematocrit 37.5 36.0 - 46.0 % MCV 95 80 - 100 fL MCH 31.1 26.0 - 34.0 pg MCHC 32.8 32.0 - 36.0 g/dL RDW 14.4 11.5 - 14.5 % Platelets 228 150 - 450 x10*3/uL Basic metabolic panel Result Value Ref Range Glucose 100 (H) 74 - 99 mg/dL Sodium 137 136 - 145 mmol/L Potassium 3.8 3.5 - 5.3 mmol/L Chloride 103 98 - 107 mmol/L Bicarbonate 26 21 - 32 mmol/L Anion Gap 12 10 - 20 mmol/L Urea Nitrogen 9 6 - 23 mg/dL Creatinine 0.70 0.50 - 1.05 mg/dL eGFR >90 >60 mL/min/1.73m*2 Calcium 8.3 (L) 8.6 - 10.3 mg/dL Magnesium Result Value Ref Range Magnesium 2.20 1.60 - 2.40 mg/dL XR chest 1 view Result Date: 11/21/2024 Interpreted By: Jose Rogers, STUDY: XR CHEST 1 VIEW; 11/21/2024 10:25 am INDICATION: Signs/Symptoms:chest tube removal. COMPARISON: Chest radiograph 11/21/2024 ACCESSION NUMBER(S): [id number] ORDERING CLINICIAN: PARTHA ROCHA FINDINGS: AP radiograph of the chest was provided. A presumed HOSPITAL NURSE shunt is seen overlying the right base of the neck, right chest wall, and right hemiabdomen with tip not in [id number]. Interval removal of left chest tube. CARDIOMEDIASTINAL SILHOUETTE: The cardiomediastinal silhouette is persistently enlarged but stable in size and configuration. LUNGS: There is no consolidation, pleural effusion, or pneumothorax. ABDOMEN: No remarkable upper abdominal findings. BONES: No acute osseous changes. Interval removal of left chest tube. No evidence of acute cardiopulmonary process. MACRO: None Signed by: Jose Rogers 11/21/2024 10:33 AM Dictation workstation: [id number] XR chest 1 view Result Date: 11/21/2024 Interpreted By: Eloy José, STUDY: XR CHEST 1 VIEW; 11/21/2024 5:45 am INDICATION: Signs/Symptoms:s/p posterior mediastinal mass resection. COMPARISON: Portable chest, 20 November 2024 ACCESSION NUMBER(S): [id number] ORDERING CLINICIAN: ARIELLE SHAH TECHNIQUE: Single frontal view of the chest; Portable technique FINDINGS: Left chest tube unchanged in position Right sided central line is unchanged and well positioned No demonstrable pneumothorax or acute infiltrate on either side No large effusion or edema No interval change MACRO: None Signed by: Eloy Estefanía 11/21/2024 8:35 AM Dictation workstation: [id number] ECG 12 lead Result Date: 11/20/2024 Normal sinus rhythm Low voltage QRS Borderline ECG When compared with ECG of 07-AUG-2024 06:33, QT has lengthened Confirmed by Jordon Rabago ([id number]) on 11/20/2024 10:52:14 PM XR chest 1 view Result Date: 11/20/2024 Interpreted By: Raquel Sweeney, STUDY: Chest, single AP view. INDICATION: Signs/Symptoms:s/p mediastinal mass resection. COMPARISON: None. ACCESSION NUMBER(S): [id number] ORDERING CLINICIAN: ARIELLE SHAH FINDINGS: Chest tube visualized projecting over the left upper thorax. The cardiac silhouette size is within normal limits. There is no focal consolidation, edema or pneumothorax. There is mild blunting of the left costophrenic angle likely representing postoperative effusion and atelectasis. No acute osseous abnormality. Surgical clips in the right axilla. 1. As above MACRO: None. Signed by: Raquel Sweeney 11/20/2024 11:04 AM Dictation workstation: [id number] Pertinent Physical Exam At Time of Discharge Physical Exam HENT: Head: Normocephalic. Nose: Nose normal. Mouth/Throat: Mouth: Mucous membranes are moist. Eyes: Pupils: Pupils are equal, round, and reactive to light. Cardiovascular: Rate and Rhythm: Normal rate and regular rhythm. Pulmonary: Effort: Pulmonary effort is normal. Comments: Left pleural chest tube tapering serosanguinous output, no air leak, removed Diminished breath sounds at bases otherwise CTA Abdominal: General: Bowel sounds are normal. Musculoskeletal: Cervical back: Normal range of motion. Right lower leg: No edema. Left lower leg: No edema. Skin: General: Skin is warm and dry. Comments: L VATS incisions well approximated without erythema, steri strips intact Neurological: General: No focal deficit present. Mental Status: She is alert and oriented to person, place, and time. Psychiatric: Mood and Affect: Mood normal. Home Medications Medication List START taking these medications oxyCODONE 5 mg immediate release tablet; Commonly known as: Roxicodone; Take 1 tablet (5 mg) by mouth every 6 hours if needed for moderate pain (4 - 6). CHANGE how you take these medications estradiol 1 mg tablet; Commonly known as: Estrace; What changed: when to take this CONTINUE taking these medications B complex-vitamin C-folic acid 1-60-300 mg-mg-mcg tablet; Commonly known as: Nephro-Akira Rx DULoxetine [address] capsule; Commonly known as: Cymbalta famciclovir 500 mg tablet; Commonly known as: Famvir famotidine 40 mg tablet; Commonly known as: Pepcid Linzess 72 mcg capsule; Generic drug: linaCLOtide magnesium oxide 400 mg tablet; Commonly known as: Mag-Ox montelukast 10 mg tablet; Commonly known as: Singulair rosuvastatin 5 mg tablet; Commonly known as: Crestor Vitamin D3 25 mcg (1,000 units) tablet; Generic drug: cholecalciferol vitamin E 180 mg (400 units) capsule Outpatient Follow-Up Future Appointments Date Time Provider Department Center 12/08/2024 11:30 AM Harsha Ojeda MD [id number] [place] Partha Rocha, SOUR BLEACHING PLEATER-AIRCRAFT STRUCTURAL REPAIRER [1] acetaminophen, 650 mg, oral, q6h cholecalciferol, 25 mcg, oral, Daily docusate sodium, 100 mg, oral, BID DULoxetine, 60 mg, oral, Daily estradiol, 1 mg, oral, BID famciclovir, 500 mg, oral, Daily famotidine, 40 mg, oral, Daily gabapentin, 300 mg, oral, q8h IQRA heparin (porcine), 5,000 Units, subcutaneous, q8h lidocaine, 1 patch, transdermal, Daily linaCLOtide, 72 mcg, oral, Daily before breakfast magnesium oxide, 400 mg of magnesium oxide, oral, Daily montelukast, 10 mg, oral, Nightly polyethylene glycol, 17 g, oral, Daily rosuvastatin, 5 mg, oral, Daily vitamin E, 180 mg, oral, Daily [2] [3] PRN medications: acetaminophen, albuterol, benzocaine-menthol, diphenhydrAMINE, HYDROmorphone, methocarbamol, naloxone, ondansetron ODT OR ondansetron, oxyCODONE, oxyCODONE, oxygen documented in this encounter [facility] Work Phone: 11-21-2024 Hospital Discharge instructions MAC Cramer - 11/21/2024 10:20 AM EDT Images from the original note were not included. Video-Assisted Thoracic Surgery Discharge Instructions About this topic VATS stands for video-assisted thoracic surgery. It is done to look at and fix problems of the chest or lungs. The doctor may treat or biopsy cancer or get rid of fluid or air from around your lungs. The doctor may also treat hernias, infections, too much sweating or problems with the organs or structures in your chest. The doctor will make 3 to 4 small cuts on your chest in between your ribs. A scope with a tiny camera is put through one of the small cuts to look at your lungs. Your doctor will put small surgical tools into the holes to do the surgery. What care is needed at home? Ask your doctor what you need to do when you go home. Make sure you ask questions if you do not understand what the doctor says. This way you will know what you need to do. Move your ankles up and down like you are pressing on and off of a gas pedal while in bed or when sitting in a chair. This will help to prevent blood clots. Ask your doctor about leg exercises that you can do. Talk to your doctor about how to care for your cut site. Ask your doctor about: When you should change your bandages When you may take a bath or shower If you need to be careful with lifting things over 10 pounds (4.5 kg) When you may go back to your normal activities like work, driving, or sex Be sure to wash your hands before and after touching your wound or dressing. Take a few short walks each day. Slowly build up the time you walk each time. Ask your doctor when it is okay to start taking drugs such as aspirin, Coumadin, and Plavix again. What follow-up care is needed? Your doctor may ask you to make visits to the office to check on your progress. Be sure to keep these visits. If you have stitches or tarun, you will need to have them taken out. Your doctor will often want to do this in 1 to 2 weeks. What drugs may be needed? The doctor may order drugs to: Help with pain and swelling Fight an infection Prevent blood clots Help with other problems you may have like trouble sleeping or hard stools Will physical activity be limited? You may have to limit your activity. Talk to your doctor about the right amount of activity for you. Get lots of rest. It is normal to feel tired for a few days. Take short walks every day. This may help keep your lungs clear. Avoid doing tiring activities. Talk to your doctor about when it is safe for you to drive. What problems could happen? Pain Bleeding Infection Trouble breathing Air leak around your lung Blood clots When do I need to call the doctor? Go to the ER right away if you have sudden shortness of breath, sudden onset of chest pain, fast heartbeat, breathing problems, pain or tenderness in your calf. These could be signs of a blood clot or pulmonary embolism (PE). Call your doctor if you have: Signs of infection. These include a fever of 100.4 F (38 C) or higher, chills, very bad sore throat, cough, more sputum or change in color of sputum, or wound that will not heal. Signs of wound infection. These include swelling, redness, warmth around the wound; too much pain when touched; yellowish, greenish, or bloody discharge; foul smell coming from the cut site; cut site opens up. Very bad pain Chest pain that is new or not getting better after surgery Blood or change in color of sputum with coughing Trouble breathing or swallowing Problem with walking, standing, or moving Problem passing urine or loss of bowel or bladder control Teach Back: Helping You Understand The Teach Back Method helps you understand the information we are giving you. After you talk with the staff, tell them in your own words what you learned. This helps to make sure the staff has described each thing clearly. It also helps to explain things that may have been confusing. Before going home, make sure you can do these: I can tell you about my procedure. I can tell you how to care for my cut site. I can tell you what I will do if I have chest pain, trouble breathing, or I cough up blood. Last Reviewed Date 2020-03-01 Consumer Information Use and Disclaimer This generalized information is a limited summary of diagnosis, treatment, and/or medication information. It is not meant to be comprehensive and should be used as a tool to help the user understand and/or assess potential diagnostic and treatment options. It does NOT include all information about conditions, treatments, medications, side effects, or risks that may apply to a specific patient. It is not intended to be medical advice or a substitute for the medical advice, diagnosis, or treatment of a health care provider based on the health care provider's examination and assessment of a patient s specific and unique circumstances. Patients must speak with a health care provider for complete information about their health, medical questions, and treatment options, including any risks or benefits regarding use of medications. This information does not endorse any treatments or medications as safe, effective, or approved for treating a specific patient. [employer] and its affiliates disclaim any warranty or liability relating to this information or the use thereof. The use of this information is governed by the Terms of Use, available at https://www.[employer].com/en/ know/gdwcknda-wbsvhctjygbop-ulbtd Copyright 2022 [employer]. and its affiliates and/or licensors. All rights reserved. The following attachments cannot be sent through Care Everywhere.Oxycodone, ADULT (Yoruba)documented in this encounter [facility] Work Phone: 11-21-2024 History of Present illness Narrative [facility] Critical Care Medicine Date: 11/21/2024 Patient: Shawna Grigsby Date of : 1980 Admit Date: 11/20/2024 ===== No chief complaint on file. History of Present Illness: Shawna Grigsby is a 44 y.o. year old female patient with Past Medical History of neurofibromatosis, hydrocephalus with HOSPITAL NURSE shunt, HLD, GERD, depression/anxiety, Stage IIC melanoma of the back. Patient was found to have mediastinal mass and underwent mediastinal lymph node biopsy which was consistent with neurofibroma with atypia. Referred to Dr. Ojeda for surgical resection. On 11/20 patient underwent VATS with posterior mediastinal mass resection. Left pleural chest tube placed. Admitted to ICU postoperatively. Interval ICU Events: 11/20: Admitted to ICU s/p left VATS with posterior mediastinal mass resection. Left pleural chest tube to waterseal. Pain well-controlled. Hemodynamically stable. 11/21: HDS, afebrile, on room air this am. Left CT with 55 ml out since OR. Medical History: Medical History[1] Surgical History[2] Prescriptions Prior to Admission[3] Patient has no known allergies. Social History[4] Family History[5] Review of Systems: 14 point review of systems was completed and negative except for those specially mention in my HPI Physical Exam: Heart Rate: [68-94] Temp: [35.6 C (96 F)-36 C (96.8 F)] Resp: [9-35] BP: (118-159)/(71-98) Height: [153.7 cm (5' 0.51 )] Weight: [73 kg (160 lb 15 oz)-73.4 kg (161 lb 13.1 oz)] SpO2: [93 %-100 %] Physical Exam HENT: Head: Normocephalic. Mouth/Throat: Mouth: Mucous membranes are moist. Eyes: Extraocular Movements: Extraocular movements intact. Conjunctiva/sclera: Conjunctivae normal. Cardiovascular: Rate and Rhythm: Regular rhythm. Pulses: Normal pulses. Heart sounds: Normal heart sounds. Pulmonary: Effort: Pulmonary effort is normal. Breath sounds: Normal breath sounds. Comments: Left CT with minimal serosang drainage. Abdominal: General: Bowel sounds are normal. Palpations: Abdomen is soft. Skin: General: Skin is warm. Capillary Refill: Capillary refill takes less than 2 seconds. Neurological: General: No focal deficit present. Mental Status: She is alert. Psychiatric: Behavior: Behavior normal. Objective: I have reviewed all medications, laboratory results, and imaging pertinent for today's encounter Assessment/Plan: I am currently managing this critically ill patient for the following problems: Shawna Grigsby is a 44 y.o. year old female patient with Past Medical History of neurofibromatosis, hydrocephalus with HOSPITAL NURSE shunt, HLD, GERD, depression/anxiety, Stage IIC melanoma of the back,. Found to have posterior mediastinal mass on PET scan and underwent biopsy consistent with neurofibroma. Referred to thoracic surgery and underwent VATS with mediastinal mass resection on . Now admitted to the ICU and being treated for the following: Mediastinal mass consistent with neurofibroma s/p VATS with surgical resection (11/20/2024) Stage IIIc melanoma of the back Hydrocephalus s/p HOSPITAL NURSE shunt HLD GERD Depression/anxiety Plan: ICU postoperatively Maintain left pleural chest tube to waterseal Tylenol, oxycodone, Dilaudid for pain control Perioperative Ancef for 2 doses, complete Continue home Cymbalta, estradiol, famciclovir, Pepcid, linaclotide, Singulair, pepcid, statin Regular diet Continue outpatient follow-up with [facility] Interior Decorator Painting: DVT Prophylaxis: Heparin subcutaneous GI Prophylaxis: home pepcid Bowel Regimen: PRN Diet: regular CVC: no [place]: none [place]: no Restraints: no Dispo: ICU to sign off, transfer vs discharge per CTS 30 minutes spent in preparing to see patient (I.e. review of medical records), evaluation of diagnostics (I.e. labs, imaging, etc.), documentation, discussing plan of care with patient/ family/ caregiver, and/ or coordination of care with multidisciplinary team. Time does not include completion of procedure time. Plan discussed with Dr. Jefferson and CTS team Marisol Figueroa, SOUR BLEACHING PLEATER-AIRCRAFT STRUCTURAL REPAIRER [1] Past Medical History: Diagnosis Date Arthritis in entire back Chronic headaches migraines Depression GERD (gastroesophageal reflux disease) Hydrocephalus has had shunt placed Hyperlipidemia Irritable bowel syndrome Melanoma (Multi) on back Neurofibromatosis (Multi) Wears glasses [2] Past Surgical History: Procedure Laterality Date CHOLECYSTECTOMY CSF SHUNT for hydrocephalus HYSTERECTOMY OOPHORECTOMY Bilateral SKIN CANCER EXCISION melamoma on back resection per Dr Pacheco 08-07-24 [3] Medications Prior to Admission Medication Sig Dispense Refill Last Dose/Taking DULoxetine (Cymbalta) [address] capsule Take 1 capsule (60 mg) by mouth once daily. Do not crush or chew. 11/19/2024 estradiol (Estrace) 1 mg tablet Take 1 tablet (1 mg) by mouth once daily. (Patient taking differently: Take 1 tablet (1 mg) by mouth 2 times a day.) 11/19/2024 famciclovir (Famvir) 500 mg tablet Take 1 tablet (500 mg) by mouth once daily. 11/19/2024 famotidine (Pepcid) 40 mg tablet Take 1 tablet (40 mg) by mouth once daily. 11/19/2024 linaCLOtide (Linzess) 72 mcg capsule Take 1 capsule (72 mcg) by mouth once daily in the morning. Take before meals. Pt only takes once or twice a week: can only take them on her days off. Past Week magnesium oxide (Mag-Ox) 400 mg tablet 1 tablet (400 mg) once daily. 11/19/2024 montelukast (Singulair) 10 mg tablet Take 1 tablet (10 mg) by mouth once daily at bedtime. 11/19/2024 rosuvastatin (Crestor) 5 mg tablet Take 1 tablet (5 mg) by mouth once daily. 11/19/2024 B complex-vitamin C-folic acid (Nephro-Akira Rx) 1-60-300 mg-mg-mcg tablet Take 1 tablet by mouth once daily with breakfast. 11/13/2024 cholecalciferol (Vitamin D3) 25 mcg (1000 units) tablet Take 1 tablet (1,000 Units) by mouth once daily. 11/13/2024 vitamin E 180 mg (400 unit) capsule Take 1 capsule (400 Units) by mouth once daily. 11/13/2024 [4] Social History Tobacco Use Smoking status: Never Smokeless tobacco: Never Vaping Use Vaping status: Never Used Substance Use Topics Alcohol use: Not Currently Alcohol/week: 2.0 standard drinks of alcohol Types: 2 Standard drinks or equivalent per week Comment: depends on the week's plans Drug use: Never [5] No family history on file. documented in this encounter [facility] Work Phone: 11-21-2024 Plan of care note The patient's goals for the shift include sleep The clinical goals for the shift include Patient will remain safe without injury throughout this shift. Problem: Pain - Adult Goal: Verbalizes/displays adequate comfort level or baseline comfort level Outcome: Progressing Problem: Safety - Adult Goal: Free from fall injury Outcome: Progressing Problem: Discharge Planning Goal: Discharge to home or other facility with appropriate resources Outcome: Progressing Problem: Chronic Conditions and Co-morbidities Goal: Patient's chronic conditions and co-morbidity symptoms are monitored and maintained or improved Outcome: Progressing Problem: Nutrition Goal: Nutrient intake appropriate for maintaining nutritional needs Outcome: Progressing Problem: Skin Goal: Decreased wound size/increased tissue granulation at next dressing change Outcome: Progressing Flowsheets (Taken 11/21/2024 0504) Decreased wound size/increased tissue granulation at next dressing change: Promote sleep for wound healing Protective dressings over bony prominences Utilize specialty bed per algorithm Goal: Participates in plan/prevention/treatment measures Outcome: Progressing Flowsheets (Taken 11/21/2024 050) Participates in plan/prevention/treatment measures: Discuss with provider PT/OT consult Elevate heels Increase activity/out of bed for meals Goal: Prevent/manage excess moisture Outcome: Progressing Flowsheets (Taken 11/21/2024 0504) Prevent/manage excess moisture: Cleanse incontinence/protect with barrier cream Follow provider orders for dressing changes Moisturize dry skin Goal: Prevent/minimize sheer/friction injuries Outcome: Progressing Flowsheets (Taken 11/21/2024 0504) Prevent/minimize sheer/friction injuries: Complete micro-shifts as needed if patient unable. Adjust patient position to relieve pressure points, not a full turn HOB 30 degrees or less Increase activity/out of bed for meals Turn/reposition every 2 hours/use positioning/transfer devices Use pull sheet Utilize specialty bed per algorithm Goal: Promote/optimize nutrition Outcome: Progressing Flowsheets (Taken 11/21/2024 0504) Promote/optimize nutrition: Assist with feeding Consume > 50% meals/supplements Discuss with provider if NPO > 2 days Monitor/record intake including meals Offer water/supplements/favorite foods Reassess MST if corporate safety director not consulted Goal: Promote skin healing Outcome: Progressing Flowsheets (Taken 11/21/2024 0504) Promote skin healing: Assess skin/pad under line(s)/device(s) Ensure correct size (line/device) and apply per electronics maintenance technician instructions Protective dressings over bony prominences Rotate device position/do not position patient on device Turn/reposition every 2 hours/use positioning/transfer devices [facility] 11-20-2024 Nurse Note 1100- Pt arrived to sicu 4 connected to monitors. HARDWARE ENGINEER Jacobo at bedside. [facility] Work Phone: 11-20-2024 Consult note Formatting of th is note is different from the original. [facility] Critical Care Medicine Date: 11/20/2024 Patient: Shawna Grigsby Date of : 1980 Admit Date: 11/20/2024 ===== No chief complaint on file. History of Present Illness: Shawna Grigsby is a 44 y.o. year old female patient with Past Medical History of neurofibromatosis, hydrocephalus with HOSPITAL NURSE shunt, HLD, GERD, depression/anxiety, Stage IIC melanoma of the back. Patient was found to have mediastinal mass and underwent mediastinal lymph node biopsy which was consistent with neurofibroma with atypia. Referred to Dr. Ojeda for surgical resection. On 11/20 patient underwent VATS with posterior mediastinal mass resection. Left pleural chest tube placed. Admitted to ICU postoperatively. Interval ICU Events: 11/20: Admitted to ICU s/p left VATS with posterior mediastinal mass resection. Left pleural chest tube to waterseal. Pain well-controlled. Hemodynamically stable. Medical History: Medical History[1] Surgical History[2] Prescriptions Prior to Admission[3] Patient has no known allergies. Social History[4] Family History[5] Hospital Medications: Continuous Medications[6] Current Medications[7] Review of Systems: 14 point review of systems was completed and negative except for those specially mention in my HPI Physical Exam: Heart Rate: [61-86] Temp: [36.3 C (97.3 F)] Resp: [10-25] BP: (132-152)/(82-92) Height: [153.7 cm (5' 0.5 )-153.7 cm (5' 0.51 )] Weight: [74.6 kg (164 lb 7.4 oz)] SpO2: [93 %-99 %] Physical Exam Constitutional: General: She is not in acute distress. Appearance: She is not ill-appearing or diaphoretic. HENT: Head: Normocephalic and atraumatic. Mouth/Throat: Mouth: Mucous membranes are moist. Pharynx: Oropharynx is clear. Eyes: Extraocular Movements: Extraocular movements intact. Pupils: Pupils are equal, round, and reactive to light. Cardiovascular: Rate and Rhythm: Normal rate and regular rhythm. Pulses: Normal pulses. Heart sounds: No murmur heard. Friction rub present. No gallop. Pulmonary: Effort: Pulmonary effort is normal. No respiratory distress. Breath sounds: Normal breath sounds. No wheezing or rales. Comments: Left pleural chest tube Abdominal: General: Abdomen is flat. There is no distension. Palpations: Abdomen is soft. Musculoskeletal: General: Normal range of motion. Right lower leg: No edema. Left lower leg: No edema. Skin: General: Skin is warm and dry. Capillary Refill: Capillary refill takes less than 2 seconds. Neurological: General: No focal deficit present. Mental Status: She is alert. Mental status is at baseline. Objective: I have reviewed all medications, laboratory results, and imaging pertinent for today's encounter. Intake/Output Summary (Last 24 hours) at 11/20/2024 1124 Last data filed at 11/20/2024 1100 Gross per 24 hour Intake -- Output 7 ml Net -7 ml Assessment: Shawna Grigsby is a 44 y.o. year old female patient with Past Medical History of neurofibromatosis, hydrocephalus with HOSPITAL NURSE shunt, HLD, GERD, depression/anxiety, Stage IIC melanoma of the back,. Found to have posterior mediastinal mass on PET scan and underwent biopsy consistent with neurofibroma. Referred to thoracic surgery and underwent VATS with mediastinal mass resection on . Now admitted to the ICU and being treated for the following: Mediastinal mass consistent with neurofibroma s/p VATS with surgical resection (11/20/2024) Stage IIIc melanoma of the back Hydrocephalus s/p HOSPITAL NURSE shunt HLD GERD Depression/anxiety Plan: Admit to ICU postoperatively Maintain left pleural chest tube to waterseal Tylenol, oxycodone, Dilaudid for pain control Perioperative Ancef for 2 doses Continue home Cymbalta, estradiol, famciclovir, Pepcid, linaclotide, Singulair, pepcid, statin Clear liquid diet, advance as tolerated Continue outpatient follow-up with [facility] Interior Decorator Painting: DVT Prophylaxis: Heparin subcutaneous GI Prophylaxis: home pepcid Bowel Regimen: PRN Diet: clear liquid, advance as tolerated CVC: no Michelle: remove Johnson: no Restraints: no Dispo: ICU Critical Care Time: 35 minutes spent in preparing to see patient (I.e. review of medical records), evaluation of diagnostics (I.e. labs, imaging, etc.), documentation, discussing plan of care with patient/ family/ caregiver, and/ or coordination of care with multidisciplinary team. Time does not include completion of procedure time. Jacobo Vital, SOUR BLEACHING PLEATER-AIRCRAFT STRUCTURAL REPAIRER Pulmonary & Critical Care Medicine [facility] [1] Past Medical History: Diagnosis Date Arthritis in entire back Chronic headaches migraines Depression GERD (gastroesophageal reflux disease) Hydrocephalus has had shunt placed Hyperlipidemia Irritable bowel syndrome Melanoma (Multi) on back Neurofibromatosis (Multi) Wears glasses [2] Past Surgical History: Procedure Laterality Date CHOLECYSTECTOMY CSF SHUNT for hydrocephalus HYSTERECTOMY OOPHORECTOMY Bilateral SKIN CANCER EXCISION melamoma on back resection per Dr Pacheco 08-07-24 [3] Medications Prior to Admission Medication Sig Dispense Refill Last Dose/Taking DULoxetine (Cymbalta) [address] capsule Take 1 capsule (60 mg) by mouth once daily. Do not crush or chew. 11/19/2024 estradiol (Estrace) 1 mg tablet Take 1 tablet (1 mg) by mouth once daily. (Patient taking differently: Take 1 tablet (1 mg) by mouth 2 times a day.) 11/19/2024 famciclovir (Famvir) 500 mg tablet Take 1 tablet (500 mg) by mouth once daily. 11/19/2024 famotidine (Pepcid) 40 mg tablet Take 1 tablet (40 mg) by mouth once daily. 11/19/2024 linaCLOtide (Linzess) 72 mcg capsule Take 1 capsule (72 mcg) by mouth once daily in the morning. Take before meals. Pt only takes once or twice a week: can only take them on her days off. Past Week magnesium oxide (Mag-Ox) 400 mg tablet 1 tablet (400 mg) once daily. 11/19/2024 montelukast (Singulair) 10 mg tablet Take 1 tablet (10 mg) by mouth once daily at bedtime. 11/19/2024 rosuvastatin (Crestor) 5 mg tablet Take 1 tablet (5 mg) by mouth once daily. 11/19/2024 B complex-vitamin C-folic acid (Nephro-Akira Rx) 1-60-300 mg-mg-mcg tablet Take 1 tablet by mouth once daily with breakfast. 11/13/2024 cholecalciferol (Vitamin D3) 25 mcg (1000 units) tablet Take 1 tablet (1,000 Units) by mouth once daily. 11/13/2024 vitamin E 180 mg (400 unit) capsule Take 1 capsule (400 Units) by mouth once daily. 11/13/2024 [4] Social History Tobacco Use Smoking status: Never Smokeless tobacco: Never Vaping Use Vaping status: Never Used Substance Use Topics Alcohol use: Not Currently Alcohol/week: 2.0 standard drinks of alcohol Types: 2 Standard drinks or equivalent per week Comment: depends on the week's plans Drug use: Never [5] No family history on file. [6] sodium chloride 0.9%, 100 mL/hr [7] Current Facility-Administered Medications: acetaminophen (Tylenol) tablet 650 mg, 650 mg, oral, q4h PRN, Arielle Shah, ELEUTERIO-AIRCRAFT STRUCTURAL REPAIRER albuterol 2.5 mg /3 mL (0.083 %) nebulizer solution 2.5 mg, 2.5 mg, nebulization, q6h PRN, MAC Nicole benzocaine-menthol (Cepastat Sore Throat) lozenge 1 lozenge, 1 lozenge, Mouth/Throat, q2h PRN, MAC Nicole ceFAZolin (Ancef) 2 g in dextrose (iso) IV 50 mL, 2 g, intravenous, q8h, MAC Nicole cholecalciferol (Vitamin D-3) tablet 25 mcg, 25 mcg, oral, Daily, MAC Nicole diphenhydrAMINE (BENADryl) injection 25 mg, 25 mg, intravenous, q6h PRN, MAC Nicole docusate sodium (Colace) capsule 100 mg, 100 mg, oral, BID, MAC Nicole DULoxetine (Cymbalta) DR capsule 60 mg, 60 mg, oral, Daily, MAC Nicole estradiol (Estrace) tablet 1 mg, 1 mg, oral, BID, MAC Nicole famciclovir (Famvir) tablet 500 mg, 500 mg, oral, Daily, MAC Nicole famotidine (Pepcid) tablet 40 mg, 40 mg, oral, Daily, MAC Nicole heparin (porcine) injection 5,000 Units, 5,000 Units, subcutaneous, q8h, MAC Nicole HYDROmorphone (Dilaudid) injection 0.5 mg, 0.5 mg, intravenous, q2h PRN, MAC Nicole [START ON 11/21/2024] linaCLOtide (Linzess) capsule 72 mcg, 72 mcg, oral, Daily before breakfast, MAC Nicole magnesium oxide (Mag-Ox) 400 mg (241.3 mg elemental) tablet 1 tablet, 400 mg of magnesium oxide, oral, Daily, MAC Nicole montelukast (Singulair) tablet 10 mg, 10 mg, oral, Nightly, MAC Nicole naloxone (Narcan) injection 0.2 mg, 0.2 mg, intravenous, q5 min PRN, MAC Nicole ondansetron ODT (Zofran-ODT) disintegrating tablet 4 mg, 4 mg, oral, q6h PRN OR ondansetron (Zofran) injection 4 mg, 4 mg, intravenous, q6h PRN, MAC Nicole oxyCODONE (Roxicodone) immediate release tablet 10 mg, 10 mg, oral, q4h PRN, MAC Nicole oxyCODONE (Roxicodone) immediate release tablet 5 mg, 5 mg, oral, q4h PRN, MAC Nicole oxygen (O2) therapy, , inhalation, Continuous PRN - O2/gases, MAC Nicole [START ON 11/21/2024] pantoprazole (ProtoNix) EC tablet 40 mg, 40 mg, oral, Daily before breakfast, MAC Nicole polyethylene glycol (Glycolax, Miralax) packet 17 g, 17 g, oral, Daily, MAC Nicole rosuvastatin (Crestor) tablet 5 mg, 5 mg, oral, Daily, MAC Nicole sodium chloride 0.9% infusion, 100 mL/hr, intravenous, Continuous, MAC Nicole vitamin E capsule 180 mg, 180 mg, oral, Daily, MAC Nicole [facility] Work Phone: 11-20-2024 Consult note Formatting of th is note is different from the original. [facility] Critical Care Medicine Date: 11/20/2024 Patient: Shawna Grigsby Date of : 1980 Admit Date: 11/20/2024 ===== No chief complaint on file. History of Present Illness: Shawna Grigsby is a 44 y.o. year old female patient with Past Medical History of neurofibromatosis, hydrocephalus with HOSPITAL NURSE shunt, HLD, GERD, depression/anxiety, Stage IIC melanoma of the back. Patient was found to have mediastinal mass and underwent mediastinal lymph node biopsy which was consistent with neurofibroma with atypia. Referred to Dr. Ojeda for surgical resection. On 11/20 patient underwent VATS with posterior mediastinal mass resection. Left pleural chest tube placed. Admitted to ICU postoperatively. Interval ICU Events: 11/20: Admitted to ICU s/p left VATS with posterior mediastinal mass resection. Left pleural chest tube to waterseal. Pain well-controlled. Hemodynamically stable. Medical History: Medical History[1] Surgical History[2] Prescriptions Prior to Admission[3] Patient has no known allergies. Social History[4] Family History[5] Hospital Medications: Continuous Medications[6] Current Medications[7] Review of Systems: 14 point review of systems was completed and negative except for those specially mention in my HPI Physical Exam: Heart Rate: [61-86] Temp: [36.3 C (97.3 F)] Resp: [10-25] BP: (132-152)/(82-92) Height: [153.7 cm (5' 0.5 )-153.7 cm (5' 0.51 )] Weight: [74.6 kg (164 lb 7.4 oz)] SpO2: [93 %-99 %] Physical Exam Constitutional: General: She is not in acute distress. Appearance: She is not ill-appearing or diaphoretic. HENT: Head: Normocephalic and atraumatic. Mouth/Throat: Mouth: Mucous membranes are moist. Pharynx: Oropharynx is clear. Eyes: Extraocular Movements: Extraocular movements intact. Pupils: Pupils are equal, round, and reactive to light. Cardiovascular: Rate and Rhythm: Normal rate and regular rhythm. Pulses: Normal pulses. Heart sounds: No murmur heard. Friction rub present. No gallop. Pulmonary: Effort: Pulmonary effort is normal. No respiratory distress. Breath sounds: Normal breath sounds. No wheezing or rales. Comments: Left pleural chest tube Abdominal: General: Abdomen is flat. There is no distension. Palpations: Abdomen is soft. Musculoskeletal: General: Normal range of motion. Right lower leg: No edema. Left lower leg: No edema. Skin: General: Skin is warm and dry. Capillary Refill: Capillary refill takes less than 2 seconds. Neurological: General: No focal deficit present. Mental Status: She is alert. Mental status is at baseline. Objective: I have reviewed all medications, laboratory results, and imaging pertinent for today's encounter. Intake/Output Summary (Last 24 hours) at 11/20/2024 1124 Last data filed at 11/20/2024 1100 Gross per 24 hour Intake -- Output 7 ml Net -7 ml Assessment: Shawna Grigsby is a 44 y.o. year old female patient with Past Medical History of neurofibromatosis, hydrocephalus with HOSPITAL NURSE shunt, HLD, GERD, depression/anxiety, Stage IIC melanoma of the back,. Found to have posterior mediastinal mass on PET scan and underwent biopsy consistent with neurofibroma. Referred to thoracic surgery and underwent VATS with mediastinal mass resection on . Now admitted to the ICU and being treated for the following: Mediastinal mass consistent with neurofibroma s/p VATS with surgical resection (11/20/2024) Stage IIIc melanoma of the back Hydrocephalus s/p HOSPITAL NURSE shunt HLD GERD Depression/anxiety Plan: Admit to ICU postoperatively Maintain left pleural chest tube to waterseal Tylenol, oxycodone, Dilaudid for pain control Perioperative Ancef for 2 doses Continue home Cymbalta, estradiol, famciclovir, Pepcid, linaclotide, Singulair, pepcid, statin Clear liquid diet, advance as tolerated Continue outpatient follow-up with [facility] Interior Decorator Painting: DVT Prophylaxis: Heparin subcutaneous GI Prophylaxis: home pepcid Bowel Regimen: PRN Diet: clear liquid, advance as tolerated CVC: no Michelle: remove Johnson: no Restraints: no Dispo: ICU Critical Care Time: 35 minutes spent in preparing to see patient (I.e. review of medical records), evaluation of diagnostics (I.e. labs, imaging, etc.), documentation, discussing plan of care with patient/ family/ caregiver, and/ or coordination of care with multidisciplinary team. Time does not include completion of procedure time. Jacobo Vital, SOUR BLEACHING PLEATER-AIRCRAFT STRUCTURAL REPAIRER Pulmonary & Critical Care Medicine [facility] [1] Past Medical History: Diagnosis Date Arthritis in entire back Chronic headaches migraines Depression GERD (gastroesophageal reflux disease) Hydrocephalus has had shunt placed Hyperlipidemia Irritable bowel syndrome Melanoma (Multi) on back Neurofibromatosis (Multi) Wears glasses [2] Past Surgical History: Procedure Laterality Date CHOLECYSTECTOMY CSF SHUNT for hydrocephalus HYSTERECTOMY OOPHORECTOMY Bilateral SKIN CANCER EXCISION melamoma on back resection per Dr Pacheco 08-07-24 [3] Medications Prior to Admission Medication Sig Dispense Refill Last Dose/Taking DULoxetine (Cymbalta) [address] capsule Take 1 capsule (60 mg) by mouth once daily. Do not crush or chew. 11/19/2024 estradiol (Estrace) 1 mg tablet Take 1 tablet (1 mg) by mouth once daily. (Patient taking differently: Take 1 tablet (1 mg) by mouth 2 times a day.) 11/19/2024 famciclovir (Famvir) 500 mg tablet Take 1 tablet (500 mg) by mouth once daily. 11/19/2024 famotidine (Pepcid) 40 mg tablet Take 1 tablet (40 mg) by mouth once daily. 11/19/2024 linaCLOtide (Linzess) 72 mcg capsule Take 1 capsule (72 mcg) by mouth once daily in the morning. Take before meals. Pt only takes once or twice a week: can only take them on her days off. Past Week magnesium oxide (Mag-Ox) 400 mg tablet 1 tablet (400 mg) once daily. 11/19/2024 montelukast (Singulair) 10 mg tablet Take 1 tablet (10 mg) by mouth once daily at bedtime. 11/19/2024 rosuvastatin (Crestor) 5 mg tablet Take 1 tablet (5 mg) by mouth once daily. 11/19/2024 B complex-vitamin C-folic acid (Nephro-Akira Rx) 1-60-300 mg-mg-mcg tablet Take 1 tablet by mouth once daily with breakfast. 11/13/2024 cholecalciferol (Vitamin D3) 25 mcg (1000 units) tablet Take 1 tablet (1,000 Units) by mouth once daily. 11/13/2024 vitamin E 180 mg (400 unit) capsule Take 1 capsule (400 Units) by mouth once daily. 11/13/2024 [4] Social History Tobacco Use Smoking status: Never Smokeless tobacco: Never Vaping Use Vaping status: Never Used Substance Use Topics Alcohol use: Not Currently Alcohol/week: 2.0 standard drinks of alcohol Types: 2 Standard drinks or equivalent per week Comment: depends on the week's plans Drug use: Never [5] No family history on file. [6] sodium chloride 0.9%, 100 mL/hr [7] Current Facility-Administered Medications: acetaminophen (Tylenol) tablet 650 mg, 650 mg, oral, q4h PRN, MAC Nicole albuterol 2.5 mg /3 mL (0.083 %) nebulizer solution 2.5 mg, 2.5 mg, nebulization, q6h PRN, MAC Nicole benzocaine-menthol (Cepastat Sore Throat) lozenge 1 lozenge, 1 lozenge, Mouth/Throat, q2h PRN, MAC Nicole ceFAZolin (Ancef) 2 g in dextrose (iso) IV 50 mL, 2 g, intravenous, q8h, MAC Nicole cholecalciferol (Vitamin D-3) tablet 25 mcg, 25 mcg, oral, Daily, MAC Nicole diphenhydrAMINE (BENADryl) injection 25 mg, 25 mg, intravenous, q6h PRN, MAC Nicole docusate sodium (Colace) capsule 100 mg, 100 mg, oral, BID, MAC Nicole DULoxetine (Cymbalta) DR capsule 60 mg, 60 mg, oral, Daily, MAC Nicole estradiol (Estrace) tablet 1 mg, 1 mg, oral, BID, MAC Nicole famciclovir (Famvir) tablet 500 mg, 500 mg, oral, Daily, MAC Nicole famotidine (Pepcid) tablet 40 mg, 40 mg, oral, Daily, MAC Nicole heparin (porcine) injection 5,000 Units, 5,000 Units, subcutaneous, q8h, MAC Nicole HYDROmorphone (Dilaudid) injection 0.5 mg, 0.5 mg, intravenous, q2h PRN, MAC Nicole [START ON 11/21/2024] linaCLOtide (Linzess) capsule 72 mcg, 72 mcg, oral, Daily before breakfast, MAC Nicole magnesium oxide (Mag-Ox) 400 mg (241.3 mg elemental) tablet 1 tablet, 400 mg of magnesium oxide, oral, Daily, MAC Nicole montelukast (Singulair) tablet 10 mg, 10 mg, oral, Nightly, MAC Nicole naloxone (Narcan) injection 0.2 mg, 0.2 mg, intravenous, q5 min PRN, MAC Nicole ondansetron ODT (Zofran-ODT) disintegrating tablet 4 mg, 4 mg, oral, q6h PRN OR ondansetron (Zofran) injection 4 mg, 4 mg, intravenous, q6h PRN, MAC Nicole oxyCODONE (Roxicodone) immediate release tablet 10 mg, 10 mg, oral, q4h PRN, MAC Nicole oxyCODONE (Roxicodone) immediate release tablet 5 mg, 5 mg, oral, q4h PRN, MAC Nicole oxygen (O2) therapy, , inhalation, Continuous PRN - O2/gases, MAC Nicole [START ON 11/21/2024] pantoprazole (ProtoNix) EC tablet 40 mg, 40 mg, oral, Daily before breakfast, MAC Nicole polyethylene glycol (Glycolax, Miralax) packet 17 g, 17 g, oral, Daily, MAC Nicole rosuvastatin (Crestor) tablet 5 mg, 5 mg, oral, Daily, MAC Nicole sodium chloride 0.9% infusion, 100 mL/hr, intravenous, Continuous, MAC Nicole vitamin E capsule 180 mg, 180 mg, oral, Daily, MAC Nicole documented in this encounter [facility] Work Phone: 11-20-2024 Nurse Surgical operation note Dr. Hodges aware pt. Resting quietly but, when awakened to asked about her pain pt. States pain still [address] Hodges awake of amount of pain meds and OK with pt. Being discharged to SICU at this time. [facility] 11-20-2024 Surgery Surgical operation note Date: 11/20/2024 OR Location: [facility] OR Name: Shawna Grigsby, : 1980, Age: 44 y.o., , Sex: female Preop Diagnosis: posterior mediastinal mass Postop Diagnosis: posterior mediastinal mass Procedures: Robotic assisted posterior mediastinal mass resection Intercostal nerve block Bronchoscopy Surgeons: Harsha Ojdea MD Resident/Fellow/Other Metal Casket Assembler: Surgeons and Role: * Tasha Farias PA-C - Assisting Anesthesia: General ASA: III Anesthesia Staff: Anesthesiologist: Joanna Hodges MD CHECK GRADER: DANIELLE Vásquez Estimated Blood Loss: 10mL Intra-op Medications: Administrations occurring from 0700 to 0930 on 11/20/24: Medication Name Total Dose BUPivacaine-EPINEPHrine (Marcaine w/EPI) 0.25 %-1:200,000 injection 50 mL sodium chloride 0.9 % irrigation solution 1,000 mL ceFAZolin (Ancef) vial 1 g 2 g dexAMETHasone (Decadron) 4 mg/mL 4 mg esmolol (Brevibloc) 10 mcg/mL IV bolus 50 mg fentaNYL PF 0.05 mg/mL 250 mcg HYDROmorphone (Dilaudid) 1 mg/mL injection 1 mg labetalol 5 mg/mL 10 mg lidocaine (Xylocaine) injection 2 % 40 mg midazolam (Versed) 1 mg/1 mL 2 mg ondansetron 2 mg/mL 4 mg phenylephrine 40 mcg/mL syringe 10 mL 100 mcg 50 mL propofol 10mg/mL 200 mg rocuronium 10 mg/mL 50 mg sugammadex (Bridion) 200 mg/2 mL injection 200 mg Anesthesia Record Intraprocedure I/O Totals Intake Propofol Drip 0.00 mL The total shown is the total volume documented since Anesthesia Start was filed. Total Intake 0 mL Specimen: ID Type Source Tests Collected by Time 1 : POSTERIOR MEDIASTINAL MASS Tissue SOFT TISSUE RESECTION SURGICAL PATHOLOGY EXAM Harsha Ojeda MD 11/20/2024 0849 Staff: Bowstring Maker: Felicity Ruggiero RN Scrub Person: Sherie Tanner; Rupinder Taylor Findings: posterior mediastinal mass involved the sympathetic chain above 2nd rib and 2nd intercostal nerve. Resected en-bloc. No pleural implants or invasion noted. Indication: This is a 44-year-old female with past med history of neurofibromatosis and melanoma who had posterior mediastinal mass identified on screening CT scan. This mass was biopsied showed new fibroma. Given her history of neurofibromatosis, I recommended minimally invasive resection of this mass. The risk of surgery includes bleeding, infection, air leak and postop pain. Given the location of the mass, the involved nerve may be resected en bloc which may include sympathetic chain and intercostal nerves. Patient consented to proceed with surgery. The patient was seen in the preoperative area. The risks, benefits, complications, treatment options, non-operative alternatives, expected recovery and outcomes were discussed with the patient. The possibilities of reaction to medication, pulmonary aspiration, injury to surrounding structures, bleeding, recurrent infection, the need for additional procedures, failure to diagnose a condition, and creating a complication requiring transfusion or operation were discussed with the patient. The patient concurred with the proposed plan, giving informed consent. The site of surgery was properly noted/marked if necessary per policy. The patient has been actively warmed in preoperative area. Preoperative antibiotics have been ordered and given within 1 hours of incision. Venous thrombosis prophylaxis have been ordered including bilateral sequential compression devices and chemical prophylaxis. Operation Details: Patient was brought to operation room. A time-out was performed. Patient name, MRN and procedure were confirmed and all staff were in agreement. Patient received subcutaneous heparin. SCDs were placed and working. Ancef was given prior to incision. Patient was induced and intubated with a double lumen tube without issue. I then performed bronchoscopy through the double lumen tube. This is minimal secretions. The bronchoscopy examination was normal, no endobronchial pathology seen. Then we turned the patient to right decubitus position. All pressure points are padded. Double lumen was confirmed again in correct position. The chest was prepped and draped in sterile fashion. A pre-incision time out was performed. All staff are in agreement to proceed. I placed my 8 mm camera port in the 6th intercostal space anteriorly. The chest was entered through a direct cut down technique without issue and insufflation was started. The patient tolerated it well. The mass was visualized above the aortic arch posterior to left subclavian artery. I then placed 2 additional instrument port in the same intercostal space under visualization. I performed intercostal nerve block using quarter percent Marcaine 5 cc per intercostal space from 4th to 10th space. The robot was then docked and instruments were introduced into the chest under direct visual guidance. I then scrubbed out to the robot console. I circumferentially opened the parietal pleura around the mass with 1 cm margin using cautery. The mass was involving the the second intercostal nerve. The intercostal vascular bundle was resected using a clip on the stay side and cautery on the specimen side. The sympathetic chain was identified along the vertebral body and was involved with the mass. The symptomatic chain was controlled with clip on the stay side and cauterized on the specimen side. I then continued to dissect around the mass circumferentially down to the vertebral body. The mass come off the spine without issue. The intercostal nerve going to the spinal canal was also clipped on the stay side and taken with cautery and the specimen site. Now the mass was completely dissected off. The macroscopic margin was negative and the investing sheath surrounding the mass was not violated. Now the mass was retrieved from the field using EndoCatch bag and passed out to pathology. I ensured hemostasis of the dissection bed. I scrubbed back to the bedside. We confirmed hemostasis at the port sites. I left one 28 [place] chest tubes posteriorly. Then the lung was reinflated without issue under visualization. All the ports are closed with 2-0 Vicryl and 3-0 Monocryl. The final counts were correct. Patient was allowed to be awaken from general anesthesia and brought to recovery area in stable condition. I was present for the entire duration of the procedure. Tasha Farias is required at bedside as mate first for robotic portion of the case including docking, instrumentation, de-docking, troubleshooting, dissection, and specimen retrieval. Since there is no qualified resident to assist at bedside, her role is critical to ensure the safety of the complex operation. Harsha Ojeda MD Thoracic Surgeon [facility] [employer] [employer] [facility] Office phone: Pager: [phone] [facility] Work Phone: 11-20-2024 History and physical note Path showed neurofibroma. Offered her upfront minimal invasive surgical resection. Patient consented to proceed. Harsha Ojeda MD Thoracic Surgeon [facility] [employer] [employer] [facility] Office phone: HPI: Shawna Grigsby is a 44 y.o. female with a pmhx of HLD, neurofibromatosis, hydrocephalus with HOSPITAL NURSE shunt, and melanoma of the back s/p WLE who is referred to me by Dr Pennington for evaluation and treatment of mediastinal mass. Patient had upper back melanoma resected and underwent imaging surveillance. Whole body PET-CT demonstrated an FDG avid posterior mediastinal mass. This mass has been biopsied. Clinically patient is doing well. She denies any symptoms from this mass. She denied shortness of breath or dyspnea on exertion. She denied history of SD or stroke. She has a personal history of neurofibromatosis with multiple skin lesions which has been resected. She denied any chest surgery. Her weight has been stable. She denied any recent illness or infection. She was a never smoker and but endorsed secondhand smoking exposure. She denied fever, chill, chest pain, chest pressure, nausea or emesis. PMHx: per HPI PSHx: Cholecystectomy, hysterectomy, skin lesion resections, HOSPITAL NURSE shunt revisions. SHx: Never smoker, deny ETOH, or illicit drugs. Working as a [employer] for 3 years. FMHx: Maternal grandmother has breast cancer, maternal uncle has lung cancer and brain mets. Mother had multiple spleen cancer. [Current Medications] [Current Medications] Current Outpatient Medications: estradiol (Estrace) 1 mg tablet, Take 1 tablet (1 mg) by mouth once daily. (Patient taking differently: Take 1 tablet (1 mg) by mouth 2 times a day.), Disp: , Rfl: B complex-vitamin C-folic acid (Nephro-Akira Rx) 1-60-300 mg-mg-mcg tablet, Take 1 tablet by mouth once daily with breakfast., Disp: , Rfl: cholecalciferol (Vitamin D3) 25 mcg (1000 units) tablet, Take 1 tablet (1,000 Units) by mouth once daily., Disp: , Rfl: DULoxetine (Cymbalta) [address] capsule, Take 1 capsule (60 mg) by mouth once daily. Do not crush or chew., Disp: , Rfl: famciclovir (Famvir) 500 mg tablet, Take 1 tablet (500 mg) by mouth once daily., Disp: , Rfl: famotidine (Pepcid) 40 mg tablet, Take 1 tablet (40 mg) by mouth once daily., Disp: , Rfl: linaCLOtide (Linzess) 72 mcg capsule, Take 1 capsule (72 mcg) by mouth once daily in the morning. Take before meals. Pt only takes once or twice a week: can only take them on her days off., Disp: , Rfl: magnesium oxide (Mag-Ox) 400 mg tablet, 1 tablet (400 mg) once daily., Disp: , Rfl: montelukast (Singulair) 10 mg tablet, Take 1 tablet (10 mg) by mouth once daily at bedtime., Disp: , Rfl: rosuvastatin (Crestor) 5 mg tablet, Take 1 tablet (5 mg) by mouth once daily., Disp: , Rfl: vitamin E 180 mg (400 unit) capsule, Take 1 capsule (400 Units) by mouth once daily., Disp: , Rfl: [RX Allergies] [RX Allergies] Allergies No Known Allergies ROS General: negative for fever, chills, weight loss, night sweat Head: negative for severe headache, vision change, blurred vision, CV: negative for chest pain, dizziness, lightheadedness Pulm: negative for shortness of breath, dyspnea on exertion, hemoptysis GI: negative for diarrhea, constipation, abdominal pain, nausea or vomiting, BRBPR : negative for dysuria, hematuria, incontinence Skin: negative for rash Heme: negative for blood thinner, bleeding disorder or clotting disorder Endo: negative for heat or cold intolerance, weight gain or weight loss MSK: negative for rash, edema, weakness PHYSICAL EXAM BP 121/76 Pulse 100 Temp 36.4 C (97.5 F) Resp 16 Ht 1.537 m (5' 0.5 ) Wt 75.3 kg (166 lb) SpO2 98% BMI 31.89 kg/m Constitution: well-developed well-nourished female sitting in chair in no acute distress HEENT: NCAT, moist mucosal membrane, neck supple, no crepitus, sclera anicteric Lymph nodes: no cervical or supraclavicular lymphadenopathy Cardiac: RRR, normal S1, S2, no mrg Pulmonary: normal air movement, CTAP, no wcr Abdomen: soft, non-distended, non-tender, no rigidity, guarding or rebound tenderness, no splenohepatomegaly Neuro: AOx3, CNII-XII grossly normal Ext: warm, dry, no edema noted Skin: dry, clean and intact, previous melanoma resection well-healed in the left upper back. Multiple pearly appearing skin lesions. Psych: mood and affect wnl Assessment and Plan: This is a 44 y.o. female never smoker with posterior mediastinal mass I reviewed the CT scan from 10/09/24 and the PET/CT from 09/26/24. It showed left posterior mediastinal mass above the aortic arch. This mass was FDG avid with mSUV of 7.4. This mass was biopsied. --Patient has known HOSPITAL NURSE shunt across anterior right neck, anterior right chest and entered the peritoneal cavity from the right abdomen. I reviewed her brain MRI from 09/26/24. It showed no intracranial disease. I reviewed surgical path from 08/07/24. Midback WLE showed superficial spreading melanoma 4.3mm thickness, pT4N0 I reviewed the labs from 10/09/24. It showed normal H/H and normal INR. In my opinion, this patient presents with FDG avid posterior mediastinal mass in the left chest. Given her history of melanoma and neurofibromatosis, this mass could represent a metastasis from melanoma, neurofibroma or primary neurogenic tumor. Biopsy result is still pending. Based on the result, if this mass is indeed metastasis from her known melanoma, I would recommend neoadjuvant treatment followed by minimally invasive surgical resection. However if the biopsy result showed neurofibroma or posterior neurogenic tumor, I will recommend upfront surgical resection. T [facility] Work Phone: 11-20-2024 History and physical note Path showed neurofibroma. Offered her upfront minimal invasive surgical resection. Patient consented to proceed. Harsha Ojeda MD Thoracic Surgeon [facility] [address] [employer] [facility] Office phone: HPI: Shawna Grigsby is a 44 y.o. female with a pmhx of HLD, neurofibromatosis, hydrocephalus with HOSPITAL NURSE shunt, and melanoma of the back s/p WLE who is referred to me by Dr Pennington for evaluation and treatment of mediastinal mass. Patient had upper back melanoma resected and underwent imaging surveillance. Whole body PET-CT demonstrated an FDG avid posterior mediastinal mass. This mass has been biopsied. Clinically patient is doing well. She denies any symptoms from this mass. She denied shortness of breath or dyspnea on exertion. She denied history of SD or stroke. She has a personal history of neurofibromatosis with multiple skin lesions which has been resected. She denied any chest surgery. Her weight has been stable. She denied any recent illness or infection. She was a never smoker and but endorsed secondhand smoking exposure. She denied fever, chill, chest pain, chest pressure, nausea or emesis. PMHx: per HPI PSHx: Cholecystectomy, hysterectomy, skin lesion resections, HOSPITAL NURSE shunt revisions. SHx: Never smoker, deny ETOH, or illicit drugs. 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 FMHx: Maternal grandmother has breast cancer, maternal uncle has lung cancer and brain mets. Mother had multiple spleen cancer. [Current Medications] [Current Medications] Current Outpatient Medications: estradiol (Estrace) 1 mg tablet, Take 1 tablet (1 mg) by mouth once daily. (Patient taking differently: Take 1 tablet (1 mg) by mouth 2 times a day.), Disp: , Rfl: B complex-vitamin C-folic acid (Nephro-Akira Rx) 1-60-300 mg-mg-mcg tablet, Take 1 tablet by mouth once daily with breakfast., Disp: , Rfl: cholecalciferol (Vitamin D3) 25 mcg (1000 units) tablet, Take 1 tablet (1,000 Units) by mouth once daily., Disp: , Rfl: DULoxetine (Cymbalta) [address] capsule, Take 1 capsule (60 mg) by mouth once daily. Do not crush or chew., Disp: , Rfl: famciclovir (Famvir) 500 mg tablet, Take 1 tablet (500 mg) by mouth once daily., Disp: , Rfl: famotidine (Pepcid) 40 mg tablet, Take 1 tablet (40 mg) by mouth once daily., Disp: , Rfl: linaCLOtide (Linzess) 72 mcg capsule, Take 1 capsule (72 mcg) by mouth once daily in the morning. Take before meals. Pt only takes once or twice a week: can only take them on her days off., Disp: , Rfl: magnesium oxide (Mag-Ox) 400 mg tablet, 1 tablet (400 mg) once daily., Disp: , Rfl: montelukast (Singulair) 10 mg tablet, Take 1 tablet (10 mg) by mouth once daily at bedtime., Disp: , Rfl: rosuvastatin (Crestor) 5 mg tablet, Take 1 tablet (5 mg) by mouth once daily., Disp: , Rfl: vitamin E 180 mg (400 unit) capsule, Take 1 capsule (400 Units) by mouth once daily., Disp: , Rfl: [RX Allergies] [RX Allergies] Allergies No Known Allergies ROS General: negative for fever, chills, weight loss, night sweat Head: negative for severe headache, vision change, blurred vision, CV: negative for chest pain, dizziness, lightheadedness Pulm: negative for shortness of breath, dyspnea on exertion, hemoptysis GI: negative for diarrhea, constipation, abdominal pain, nausea or vomiting, BRBPR : negative for dysuria, hematuria, incontinence Skin: negative for rash Heme: negative for blood thinner, bleeding disorder or clotting disorder Endo: negative for heat or cold intolerance, weight gain or weight loss MSK: negative for rash, edema, weakness PHYSICAL EXAM BP 121/76 Pulse 100 Temp 36.4 C (97.5 F) Resp 16 Ht 1.537 m (5' 0.5 ) Wt 75.3 kg (166 lb) SpO2 98% BMI 31.89 kg/m Constitution: well-developed well-nourished female sitting in chair in no acute distress HEENT: NCAT, moist mucosal membrane, neck supple, no crepitus, sclera anicteric Lymph nodes: no cervical or supraclavicular lymphadenopathy Cardiac: RRR, normal S1, S2, no mrg Pulmonary: normal air movement, CTAP, no wcr Abdomen: soft, non-distended, non-tender, no rigidity, guarding or rebound tenderness, no splenohepatomegaly Neuro: AOx3, CNII-XII grossly normal Ext: warm, dry, no edema noted Skin: dry, clean and intact, previous melanoma resection well-healed in the left upper back. Multiple pearly appearing skin lesions. Psych: mood and affect wnl Assessment and Plan: This is a 44 y.o. female never smoker with posterior mediastinal mass I reviewed the CT scan from 10/09/24 and the PET/CT from 09/26/24. It showed left posterior mediastinal mass above the aortic arch. This mass was FDG avid with mSUV of 7.4. This mass was biopsied. --Patient has known HOSPITAL NURSE shunt across anterior right neck, anterior right chest and entered the peritoneal cavity from the right abdomen. I reviewed her brain MRI from 09/26/24. It showed no intracranial disease. I reviewed surgical path from 08/07/24. Midback WLE showed superficial spreading melanoma 4.3mm thickness, pT4N0 I reviewed the labs from 10/09/24. It showed normal H/H and normal INR. In my opinion, this patient presents with FDG avid posterior mediastinal mass in the left chest. Given her history of melanoma and neurofibromatosis, this mass could represent a metastasis from melanoma, neurofibroma or primary neurogenic tumor. Biopsy result is still pending. Based on the result, if this mass is indeed metastasis from her known melanoma, I would recommend neoadjuvant treatment followed by minimally invasive surgical resection. However if the biopsy result showed neurofibroma or posterior neurogenic tumor, I will recommend upfront surgical resection. documented in this encounter [facility] Work Phone: 10-26-2024 Instructions Formatting of th is note is different from the original. ADULT SURGERY PRE-OPERATIVE INSTRUCTIONS You will receive notification one business day prior to your surgery to confirm your arrival time and any additional information between 2 P.M. - 5 P.M. It is important that you answer your phone and/or check your messages during this time. You may see in MyChart your surgery start time changes several times even up to the day before your procedure. Please disregard those times and only follow the time given by the lead athlete who will be notifying you via phone and not a text. Please arrive at your scheduled time to avoid delay or cancelled surgery. Please enter the building through either the Main Entrance in front of the hospital or from the Parking Garage Walkway Bridge. From the parking garage, which is free, take the 2nd Floor Walkway Bridge into the hospital and check in at the [facility] Outpatient Desk as you enter the hospital directly in front of you. If you enter through the Main Entrance, take the elevator off the lobby on the right labeled A to the 2nd floor and check in at the [facility] Outpatient Surgery desk as you exit the elevator. Wheelchairs are available for use if using the Main Entrance. Handicap parking in the land lot, in front of hospital by main entrance, wheelchairs are available at this entrance INSTRUCTIONS ABOUT EATING OR DRINKING BEFORE SURGERY: Unless told otherwise by your surgeon, do not eat any solid foods or drink anything after midnight the night prior to your procedure. This also includes no gum, candy, lozenges, ice, or any other oral consumption ADDITIONAL INSTRUCTIONS: Please contact your surgeon s office about any changes in your health, such as bad cold, fever, sore throat, or COVID within the last 4 weeks. Talk to your surgeon for instructions if you should stop your aspirin, NSAIDS, blood thinners, diabetes medicines, weight loss medications, multivitamins or over the counter supplements since many surgeons have you adjust or stop these medications prior to procedure. The doctor s office may also have you contact the prescribing doctor for medication adjustments for your surgery. If you take certain medications such as a Beta Rojelio or Anti-Seizure medication, you may be instructed to take them in the morning of procedure with a sip of water. If this is the case your surgeon's office should let you know, and the PAT nurses will follow up when they speak to you to make sure you are aware. You are allowed 2 adults over the age of 18 to accompany you on the day of surgery. Only one person may be allowed to go back into the pre-operative area with you at a time. If you are not being admitted after your surgery, and you are receiving any type of anesthesia (general, sedation, local, MAC, etc) with your procedure, you must have an adult (age 18 or older) immediately available to drive you home after surgery or your procedure will be cancelled. You may be discharged home after surgery with Uber, Lyft, Taxi or any other transportation service as long as the responsible adult (18 or older) is in the vehicle with you at time of discharge. The bulk driver of these transportation services is not responsible for your care and cannot be considered a responsible adult. We also highly recommend you have someone stay with you for the entire day and night of your surgery. All jewelry and piercings must be removed. If you are unable to remove an item or have a dermal piercing, please be sure to tell the nurse when you arrive for surgery. Nail wallisian must be removed off one finger of each hand Make-up or other beauty products (lotion, deodorant, hairspray, perfume, etc.) must be removed or not used for the day of surgery. Do not wear contacts to hospital, bring your glasses and a case Leave valuables at home except photo ID, insurance card and any co-payment that has been requested by hospital Avoid smoking, consuming alcohol, or any medical or recreational drug use for 24 hours before surgery. To help prevent infection, please take a shower/bath and wash your hair the night before and/or morning of surgery. You can brush your teeth, just do not swallow any water. For adults who are unable to consent or make medical decisions for themselves, a legal guardian or Power of Tray Room Worker must accompany them to the hospital. If this is not possible, please call [phone] to make additional arrangements. Please bring guardianship or legal Power of Tray Room Worker paperwork with you on the day of surgery. Wear comfortable, loose-fitting clothing. Do not bring any home medications with you to the hospital. If you have any questions or concerns, please call Pre-Admission Testing at or your Physician s office Dr. Harsha Ojeda [phone] [facility] 10-23-2024 History of Present illness Narrative Images from the original note were not included. CUTANEOUS ONCOLOGY: FOLLOW UP Diagnosis: Stage IIC melanoma ([id number]) Location: back Oncologic history (see initial consultation note for more detail) Date of WLE: 08/07/2024 Current therapy: deciding today Interval history: Shawna Grigsby is a 44 y.o. year old female who presents today to clinic for melanoma fu after thoracic biopsy. No symptoms to report. ROS: Review of Systems Constitutional: Negative for appetite change, chills, diaphoresis, fatigue, fever and unexpected weight change. HENT: Negative for lump/mass. Eyes: Negative for eye problems. Respiratory: Negative for chest tightness, cough and shortness of breath. Cardiovascular: Negative for chest pain, leg swelling and palpitations. Gastrointestinal: Negative for abdominal distention, abdominal pain, constipation, diarrhea, nausea and vomiting. Musculoskeletal: Negative for arthralgias, back pain and gait problem. Skin: Negative for itching, rash and wound. No new lesions or masses Neurological: Negative for extremity weakness, gait problem, headaches, light-headedness, numbness, seizures and speech difficulty. Hematological: Negative for adenopathy. Does not bruise/bleed easily. PE: Physical Exam Vitals reviewed. Constitutional: Appearance: Normal appearance. She is normal weight. HENT: Head: Normocephalic and atraumatic. Nose: Nose normal. Eyes: Extraocular Movements: Extraocular movements intact. Neurological: General: No focal deficit present. Mental Status: She is alert and oriented to person, place, and time. Mental status is at baseline. Psychiatric: Mood and Affect: Mood normal. Behavior: Behavior normal. Thought Content: Thought content normal. Judgment: Judgment normal. Pathology: Mediastinal lymph node, biopsy: -- Consistent with neurofibroma with atypia; see note. -- Mitoses number < 1 per 10 HPFs. -- No necrosis identified. Assessment: Stage IIC melanoma Plan: Shawna Grigsby is a 44 y.o. year old female who presents today to clinic for melanoma fu. We went over her pathology report- consistent with neurofibromas. I spoke with Dr. Ojeda who recommends surgical resection. Surgery is scheduled That being said, she is a stage IIC. Recommendation would be IO vs. Surveillance. She has opted for surveillance. We discussed surveillance schedule which includes Skin exam with dermatology every 4 months for the first 2 years followed every 6 months for year 3-5. Beyond 5 years, exams can be yearly or timed per discussion with dermatology. CT of the chest, abdomen, and pelvis every six months for up to three years, then annually for up to five years. Beyond 5 years, exams can be yearly or timed per discussion with dermatology. MRI brain with contrast is not routine and only performed as needed for clinical concerns. DISCLAIMER: In preparing for this visit and writing this note, I reviewed all the previous electronic medical records (labs, imaging and medical charts) of the patient available in the physician portal. Significant findings which helped in decision making are recorded in this chart. The plan was discussed with the patient. I gave her ample opportunities to ask questions. All questions were answered to her satisfaction and she verbalized understanding. Shawna Grigsby understands the plan and has no further questions. she will contact us if there are any new concerns or change in clinical picture. Alanna Pennington MD Attending Physician [facility] [employer] [employer] [facility] [employer] documented in this encounter [facility] Work Phone: 10-09-2024 Hospital Discharge instructions Ada Jean RN - 10/09/2024 12:36 PM EDT You received moderate sedation: - Do not drive a car, or operate any machinery or power tools of any kind for 24 hours. - Do not drink any alcoholic drinks for 24 hours. - Do not take any over the counter medications that may cause drowsiness for 24 hours. - Do not make any important decisions or sign any legal documents for 24 hours. - You need to have a responsible adult accompany you home. - You may resume your normal diet. - We strongly suggest that a responsible adult be with you for the rest of the day and also during the night. This is for your protection and safety. For questions related to your procedure: Please call [phone] between the hours of 7:00am-5:00pm Wednesday through Wednesday. Please call [phone] after 5:00pm and on weekends and holidays. In the event of an emergency call 911 or go to your nearest emergency room. documented in this encounter [facility] Work Phone: 10-09-2024 Evaluation note Interventional Radiology Preprocedure Note Indication for procedure: The encounter diagnosis was Melanoma of back (Multi). Relevant review of systems: Review of Systems Constitutional: Negative for chills and fever. Respiratory: Negative for shortness of breath. Cardiovascular: Negative for chest pain. Gastrointestinal: Negative for abdominal distention and abdominal pain. Skin: Negative. Neurological: Negative for dizziness and headaches. Relevant Labs: Lab Results Component Value Date INR 1.0 10/09/2024 PROTIME 10.7 10/09/2024 Planned Sedation/Anesthesia: Moderate Airway assessment: normal Directed physical examination: Physical Exam Constitutional: Appearance: Normal appearance. She is normal weight. Cardiovascular: Rate and Rhythm: Normal rate. Pulses: Normal pulses. Pulmonary: Effort: Pulmonary effort is normal. Skin: General: Skin is warm and dry. Neurological: Mental Status: She is oriented to person, place, and time. Mental status is at baseline. Mallampati: II (hard and soft palate, upper portion of tonsils and uvula visible) ASA Score: ASA 2 - Patient with mild systemic disease with no functional limitations Benefits, risks and alternatives of procedure and planned sedation have been discussed with the patient and/or their physician representative. All questions answered and they agree to proceed. [facility] Work Phone: 10-09-2024 Evaluation note Interventional Radiology Preprocedure Note CT guided lymph node biopsy Indication for procedure: The encounter diagnosis was Melanoma of back (Multi). Relevant review of systems: NA Relevant Labs: Lab Results Component Value Date INR 1.0 10/09/2024 PROTIME 10.7 10/09/2024 Planned Sedation/Anesthesia: Moderate Airway assessment: normal Directed physical examination: Aox3. Resting comfortably in bed. Respiratory rate/effort within normal limits. Chest wall skin clean/intact. Mallampati: II (hard and soft palate, upper portion of tonsils and uvula visible) ASA Score: ASA 2 - Patient with mild systemic disease with no functional limitations Benefits, risks and alternatives of procedure and planned sedation have been discussed with the patient and/or their physician representative. All questions answered and they agree to proceed. Reviewed and approved by KOREY BUTT on 10/09/24 at 11:50 AM. [facility] Work Phone: 10-09-2024 Miscellaneous Notes Interventional Radiology Preprocedure Note Indication for procedure: The encounter diagnosis was Melanoma of back (Multi). Relevant review of systems: Review of Systems Constitutional: Negative for chills and fever. Respiratory: Negative for shortness of breath. Cardiovascular: Negative for chest pain. Gastrointestinal: Negative for abdominal distention and abdominal pain. Skin: Negative. Neurological: Negative for dizziness and headaches. Relevant Labs: Lab Results Component Value Date INR 1.0 10/09/2024 PROTIME 10.7 10/09/2024 Planned Sedation/Anesthesia: Moderate Airway assessment: normal Directed physical examination: Physical Exam Constitutional: Appearance: Normal appearance. She is normal weight. Cardiovascular: Rate and Rhythm: Normal rate. Pulses: Normal pulses. Pulmonary: Effort: Pulmonary effort is normal. Skin: General: Skin is warm and dry. Neurological: Mental Status: She is oriented to person, place, and time. Mental status is at baseline. Mallampati: II (hard and soft palate, upper portion of tonsils and uvula visible) ASA Score: ASA 2 - Patient with mild systemic disease with no functional limitations Benefits, risks and alternatives of procedure and planned sedation have been discussed with the patient and/or their physician representative. All questions answered and they agree to proceed. Interventional Radiology Preprocedure Note CT guided lymph node biopsy Indication for procedure: The encounter diagnosis was Melanoma of back (Multi). Relevant review of systems: NA Relevant Labs: Lab Results Component Value Date INR 1.0 10/09/2024 PROTIME 10.7 10/09/2024 Planned Sedation/Anesthesia: Moderate Airway assessment: normal Directed physical examination: Aox3. Resting comfortably in bed. Respiratory rate/effort within normal limits. Chest wall skin clean/intact. Mallampati: II (hard and soft palate, upper portion of tonsils and uvula visible) ASA Score: ASA 2 - Patient with mild systemic disease with no functional limitations Benefits, risks and alternatives of procedure and planned sedation have been discussed with the patient and/or their physician representative. All questions answered and they agree to proceed. Reviewed and approved by KOREY BUTT on 10/09/24 at 11:50 AM. documented in this encounter [facility] Work Phone: 10-04-2024 History of Present illness Narrative Images from the original note were not included. CUTANEOUS ONCOLOGY: FOLLOW UP Diagnosis: Stage IIC melanoma Location: back Oncologic history (see initial consultation note for more detail) Current therapy: deciding today Interval history: Shawna Grigsby is a 44 y.o. year old female who presents today to clinic for melanoma fu after TB results. ROS: Review of Systems Constitutional: Negative for appetite change, chills, diaphoresis, fatigue, fever and unexpected weight change. HENT: Negative for lump/mass. Eyes: Negative for eye problems. Respiratory: Negative for chest tightness, cough and shortness of breath. Cardiovascular: Negative for chest pain, leg swelling and palpitations. Gastrointestinal: Negative for abdominal distention, abdominal pain, constipation, diarrhea, nausea and vomiting. Musculoskeletal: Negative for arthralgias, back pain and gait problem. Skin: Negative for itching, rash and wound. No new lesions or masses Neurological: Negative for extremity weakness, gait problem, headaches, light-headedness, numbness, seizures and speech difficulty. Hematological: Negative for adenopathy. Does not bruise/bleed easily. PE: Physical Exam Vitals reviewed. Constitutional: Appearance: Normal appearance. She is normal weight. HENT: Head: Normocephalic and atraumatic. Nose: Nose normal. Eyes: Extraocular Movements: Extraocular movements intact. Neurological: General: No focal deficit present. Mental Status: She is alert and oriented to person, place, and time. Mental status is at baseline. Psychiatric: Mood and Affect: Mood normal. Behavior: Behavior normal. Thought Content: Thought content normal. Judgment: Judgment normal. Assessment: Stage IIC melanoma Plan: Shawna Grigsby is a 44 y.o. year old female who presents today to clinic for melanoma fu. We went over her scans- there is a lesion on the left side. I presented her case to TB this past Wednesday and the recommendation is for biopsy. So first step would be for IR biopsy. I spoke with Dr. Ojeda, who suspects the lesion is not in the lung but that is is a mediastinal LN. This is consistent with what our TB thought as well. Ms. Grigsby is interested in meeting with Dr. Ojeda to start the conversation of what surgery would look like if the lesion was positive. Dr. Ojeda is aware that I would prefer a neoadjuvant approach if the LN is positive. At this time Bruce did not want to discuss what NAC could look like and opted to wait until the biopsy results are back. As of now, referral for IR biopsy and CT surgery consultation were placed. I will see her back 10 days after bx to go over the results and discuss next steps. DISCLAIMER: In preparing for this visit and writing this note, I reviewed all the previous electronic medical records (labs, imaging and medical charts) of the patient available in the physician portal. Significant findings which helped in decision making are recorded in this chart. The plan was discussed with the patient. I gave her ample opportunities to ask questions. All questions were answered to her satisfaction and she verbalized understanding. Shawna Grigsby understands the plan and has no further questions. she will contact us if there are any new concerns or change in clinical picture. Alanna Pennington MD Attending Physician [facility] [employer] [facility] [employer] documented in this encounter [facility] Work Phone: 09-29-2024 History of Present illness Narrative Images from the original note were not included. CUTANEOUS ONCOLOGY: FOLLOW UP Diagnosis: Stage IIC melanoma Location: back Oncologic history (see initial consultation note for more detail) Current therapy: deciding today Interval history: Shawna Grigsby is a 44 y.o. year old female who presents today to clinic for melanoma fu. No recent illness, procedures, bug bites, L sided rash. ROS: Review of Systems Constitutional: Negative for appetite change, chills, diaphoresis, fatigue, fever and unexpected weight change. HENT: Negative for lump/mass. Eyes: Negative for eye problems. Respiratory: Negative for chest tightness, cough and shortness of breath. Cardiovascular: Negative for chest pain, leg swelling and palpitations. Gastrointestinal: Negative for abdominal distention, abdominal pain, constipation, diarrhea, nausea and vomiting. Musculoskeletal: Negative for arthralgias, back pain and gait problem. Skin: Negative for itching, rash and wound. No new lesions or masses Neurological: Negative for extremity weakness, gait problem, headaches, light-headedness, numbness, seizures and speech difficulty. Hematological: Negative for adenopathy. Does not bruise/bleed easily. PE: Physical Exam Vitals reviewed. Constitutional: Appearance: Normal appearance. She is normal weight. HENT: Head: Normocephalic and atraumatic. Nose: Nose normal. Eyes: Extraocular Movements: Extraocular movements intact. Neurological: General: No focal deficit present. Mental Status: She is alert and oriented to person, place, and time. Mental status is at baseline. Psychiatric: Mood and Affect: Mood normal. Behavior: Behavior normal. Thought Content: Thought content normal. Judgment: Judgment normal. Imaging: MR brain w and wo IV contrast Result Date: 09/26/2024 No demonstrated intracranial metastatic disease. No acute intracranial abnormality. Right ventriculostomy tube. Decreased ventricular size. NM PET CT whole body Result Date: 09/26/2024 1. Status post wide local excision with mild non-specific FDG uptake within upper mid back, likely postprocedural. However, residual can not be excluded. 2. FDG avid left paravertebral soft tissue lucency adjacent to left 2nd rib posteriorly, suspicious for metastatic involvement. 3. Non-specific mildly FDG avid skin/subcutaneous thickening within posterolateral aspect of the right lower back. Involvement can not be excluded. Direct visualization is recommended. Image saved to PACs for review. 4. Status post right axillary lymph node dissection with no focal FDG uptake to suggest recurrence. 5. No FDG avid osseous metastatic disease. Assessment: Stage IIC melanoma Plan: Shawna Grigsby is a 44 y.o. year old female who presents today to clinic for melanoma fu. We went over her scans- there is a lesion on the left side that is mildly FDG avid. To me, it does not look the most impressive; however she has no history to explain avidity in that region and it is opposite of her surgery. I will present her case to TB to decide if there is something to biopsy versus surveillance. RTC 1 week to go over TB recs. DISCLAIMER: In preparing for this visit and writing this note, I reviewed all the previous electronic medical records (labs, imaging and medical charts) of the patient available in the physician portal. Significant findings which helped in decision making are recorded in this chart. The plan was discussed with the patient. I gave her ample opportunities to ask questions. All questions were answered to her satisfaction and she verbalized understanding. Shawna Grigsby understands the plan and has no further questions. she will contact us if there are any new concerns or change in clinical picture. Alanna Pennington MD Attending Physician [facility] [employer] [facility] [employer] documented in this encounter [facility] Work Phone: 09-06-2024 History of Present illness Narrative Images from the original note were not included. INITIAL CONSULTATION: MELANOMA Referring Surgeon: Yanet Pacheco MD Melanoma type: superficial spreading Location of primary site: back Date of WLE and SLNB: 08/07/2024 Final pathology: [place] Depth- 4.3 mm Ulceration status- present Dermal mitotic rate: 1/mm2 Microsatellitosis: not present Lymphovascular invasion: no Neutropism/perineural invasion: no Margins: negative [place] lymph node status: 0/2 positive lymph nodes Pathological Stage: T4bN0 Imaging: TBD HPI: Shawna Grigsby is a 44 y.o. year old female who presents today to clinic for initial evaluation of melanoma. History of atypical or dysplastic nevi: none History of an unusually large number of nevi: none History of melanoma in situ or malignant melanoma: none History of non-melanoma skin cancers: none History of other malignancies: none Ability to simeon vs. Burn: burn Sunscreen usage pattern: none Relevant ultraviolet light exposure: none Geographic factors: none Blistering sun arthur: no Tanning bed usage: 3 years ago; avid Relevant occupational exposure: none Relevant recreational exposure: yard work;playing with kids/grand kids PMH: Medical History[1] Family history: History of atypical or dysplastic nevi: none History of an unusually large number of nevi: none History of melanoma in situ or malignant melanoma: mom; melanoma x 3 History of non-melanoma skin cancers: none History of other malignancies: none Social history: no ETOH, smoking, marijuana etc. 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 HENT: Negative for lump/mass. Eyes: Negative for eye problems. Respiratory: Negative for chest tightness, cough and shortness of breath. Cardiovascular: Negative for chest pain, leg swelling and palpitations. Gastrointestinal: Negative for abdominal distention, abdominal pain, constipation, diarrhea, nausea and vomiting. Musculoskeletal: Negative for arthralgias, back pain and gait problem. Skin: Negative for itching, rash and wound. No new lesions or masses Neurological: Negative for extremity weakness, gait problem, headaches, light-headedness, numbness, seizures and speech difficulty. Hematological: Negative for adenopathy. Does not bruise/bleed easily. All other systems reviewed and are negative. PE: Physical Exam Vitals reviewed. Constitutional: Appearance: Normal appearance. She is normal weight. HENT: Head: Normocephalic and atraumatic. Nose: Nose normal. Eyes: Extraocular Movements: Extraocular movements intact. Neurological: General: No focal deficit present. Mental Status: She is alert and oriented to person, place, and time. Mental status is at baseline. Psychiatric: Mood and Affect: Mood normal. Behavior: Behavior normal. Thought Content: Thought content normal. Judgment: Judgment normal. Assessment: High risk node negative melanoma, Stage IIC Plan: she presents today in clinic to go over results of she wide excision. We went over her history, pathology report, imaging and natural history of the disease. For stage IIC, we discussed pursuing active surveillance vs. Immunotherapy. We discussed that while the OS data is still maturing, there is already evidence of a significant reduction in relapse events. This has to be weighed against the potential of IRAE related side effects. We discussed surveillance schedule which includes Skin exam with dermatology every 4 months for the first 2 years followed every 6 months for year 3-5. Beyond 5 years, exams can be yearly or timed per discussion with dermatology. CT of the chest, abdomen, and pelvis every six months for up to three years, then annually for up to five years. Beyond 5 years, exams can be yearly or timed per discussion with dermatology. MRI brain with contrast is not routine and only performed as needed for clinical concerns. We discussed that for immunotherapy, I would recommend adjuvant pembrolizumab for one year ([id number]). I recommend pembrolizumab over nivolumab given the ability to extend dosing to q6 weeks (nivolumab can be extended to q3smdag). . We discussed treatment route, efficacy, and possible MANNY. I would recommend pembrolizumab 200 mg [id number] x 1 year to start. I gave her patient information on this treatment. She will need baseline scans. MRI brain and PET. RTC post imaging. Shawna Grigsby and her partner understand the plan and have no further questions. she will contact us if there are any new concerns or change in clinical picture. Alanna Pennington MD Attending Physician [facility] [employer] [facility] [employer] [1] Past Medical History: Diagnosis Date Arthritis in entire back Chronic headaches migraines Depression GERD (gastroesophageal reflux disease) Hydrocephalus has had shunt placed Hyperlipidemia Irritable bowel syndrome Melanoma (Multi) on back Wears glasses documented in this encounter [facility] Work Phone: 08-29-2024 History of Present illness Narrative ASSESSMENT AND PLAN Shawna Grigsby is a 44 y.o. female who is now s/p wide local excision and sentinel lymph node biopsy on 08/07/24. On final pathology margins were clear and nodes benign, T4bN0, stage 2c. We discussed that this is great news and does not require further workup or follow-up with us at this time. We advised dermatology follow-up for regular exams and to return to our clinic with any concerns in the future. The patient expressed understanding. Given her advanced T stage we will refer to medical oncology to discuss adjuvant therapy vs surveillance. Yanet Pacheco MD automobile mechanic assistant Division of Surgical Oncology [phone] [email or web address] SUBJECTIVE Shawna Grigsby is a 44 y.o. female who presents for a postoperative clinic visit. Referring provider: Jimmy Polanco Diagnosis: melanoma Location: back Thickness: 4.3 mm Surgery: Wide local excision and sentinel lymph node biopsy on 08/07/24 Postoperative issues: none Physical exam Incisions are clean, dry, and intact Surgical Pathology Component FINAL DIAGNOSIS A: SKIN, WIDE LOCAL INCISION MIDBACK, INCISIONAL BIOPSY: --MALIGNANT MELANOMA IN SITU AND REACTIVE CHANGES, CONSISTENT WITH PRIOR PROCEDURE SITE, INKED MARGINS FREE IN THESE PLANES OF SECTION. --MULTIFOCAL INCIDENTAL MELANOCYTIC NEVI (SEE COMMENT): --EXTENSIVE MULTIFOCAL NEUROFIBROMAS (SEE COMMENT): Comment: Residual atypical poorly nested junctional melanocytes are adjacent to prior procedure site changes in blocks A19, A20, A22, and A24 and are widely clear of the inked margins. There is an incidental junctional melanocytic nevus that extends to the black inked margin in block A5. There is an incidental moderately atypical junctional dysplastic nevus in block A7 that is clear of the inked margins. There is incidental junctional melanocytic nevus that extends to a peripheral inked margin in block A10. There is an incidental dermal melanocytic nevus in block A26 that is clear of the inked margins. Throughout nearly all blocks, there are small bland collections of tapered spindle cells in a pale pink stroma consistent with neurofibromas present in the superficial and deep dermis and around adnexal structures. The patient's history of neurofibromatosis is noted. The patient's prior specimen ([id number]) was reviewed in conjunction with the current case, and the findings from that specimen will be used in the synoptic summary for staging purposes. B: NODE, RIGHT AXILLARY LYMPH NODE #1, LYMPH NODE EXCISION: CAPSULAR MELANOCYTIC NEVUS AND BENIGN LYMPH NODE (SEE COMMENT): Comment: Immuonstains for SOX-10, Melan-A, and HMB45 (controls appropriate) were examined on blocks B1 through B3. In blocks B1 and focally in B2, there are banal-appearing SOX-10 positive melanocytes in the capsule. C: NODE, RIGHT AXILLARY SENTINEL NODE #2, LYMPH NODE EXCISION: BENIGN LYMPH NODE (SEE COMMENT): Comment: Immunostains for HMB-45, Melan-A, and SOX-10 (controls appropriate) are negative for definitive malignancy on blocks C1 and C2. Electronically signed out by DWIGHT BELL MD at 1252 By the signature on this report, the individual or group listed as making the Final Interpretation/Diagnosis certifies that they have reviewed this case. Clinical History Pre-Op Diagnosis: Melanoma of back (Multi) Post-Op Diagnosis: Melanoma of back (Multi) Admission Diagnosis: Melanoma of back (Multi) C43.59 Specimen ID: [id number], [id number] Specimen Source: SKIN INCISIONAL BIOPSY Site/Location: WIDE LOCAL INCISION MIDBACK Collection Comments: SHORT STITCH SUPERIOR/ LONG STITCH LEFT Specimen ID: [id number], [id number] Specimen Source: LYMPH NODE EXCISION Site/Location: RIGHT AXILLARY LYMPH NODE #1 Collection Comments: #[id number] Microscopic Description A-C. Microscopic examination performed. Disclaimer One or more of the reagents used to perform assays on this specimen MAY have contained components considered to be analyte specific reagents (ASR's). ASR's have not been cleared or approved by the U.S. Food and Drug Administration. These assays were developed and their performance characteristics determined by the Department of Pathology at [facility]. The FDA does not require this test to go through premarket FDA review. This test is used for clinical purposes. It should not be regarded as investigational or for research. This laboratory is certified under the Clinical Laboratory Improvement Amendments (CLIA) as qualified to perform high complexity clinical laboratory testing. The assays were performed with appropriate positive and negative controls which stained appropriately. Gross Description A: Received in formalin is a simeon, ellipsoid piece of skin measuring 95 x 36 x 14 mm. It was received with a short stitch designated by the surgeon as superior , referred to here as 1 o'clock (Block 2) for the purpose of gross description. It was received with a second long stitch designated by the surgeon as left , referred to here as 9 o'clock for the purpose of gross description. The specimen was inked blue on the 12-6 o'clock margin and inked black on the 6-12 o'clock margin, then serially sectioned and embedded in toto in forty-three blocks. Blocks 9, 10, 19, 20, 21, 22, 35, and 36 are additionally bisected, with the odd-numbered blocks being on the black inked margin (Blocks 9, 19, 21, and 35) and the even-numbered blocks being on the blue inked margin (Blocks 10, 20, 22, and 36). Block 1 is at 12 o'clock, block 19 is at 9 o'clock, block 20 is at 3 o'clock, and block 43 is at 6 o'clock. The tips are embedded in blocks 1 and 43. B: Received in formalin is a yellow, irregularly shaped lymph node measuring 24 x 14 x 6 mm. It was embedded in toto in three blocks. The specimen was grossed by Sue Williamson. C: Received in formalin, labeled with the patient's name and hospital number and right axillary sentinel , is a possible lymph node measuring 1.6 x 1.3 x 1.1 cm. The specimen is serially sectioned. The specimen is entirely submitted in 2 cassettes. JOSEFINA (Gross performed at [facility] 08/07/2024) Case Summary Report MELANOMA OF THE SKIN: Excision, Re-Excision 8th Edition - Protocol posted: 04/02/2021MELANOMA OF THE SKIN: EXCISION, RE-EXCISION - A SPECIMEN Procedure Excision [place] node(s) biopsy Specimen Laterality Midline TUMOR Tumor Site Skin of trunk: Midback Histologic Type Superficial spreading melanoma (low-cumulative sun damage (CSD) melanoma) Maximum Tumor (Breslow) Thickness (Millimeters) 4.3 mm Macroscopic Satellite Nodule(s) Cannot be determined: Clinical information not given. Ulceration Present Extent of Ulceration (Millimeters) 1 mm Anatomic (Miguelito) Level IV (Melanoma invades reticular dermis) Mitotic Rate 6 mitoses per mm2 Microsatellite(s) Not identified Lymphovascular Invasion Not identified Neurotropism Not identified Tumor-Infiltrating Lymphocytes Present, nonbrisk Tumor Regression Not identified MARGINS Margin Status for Invasive Melanoma All margins negative for invasive melanoma Closest Margin Location(s) to Invasive Melanoma Not possible as no residual invasive melanoma identified in excision specimen. Margin Status for Melanoma in situ All margins negative for melanoma in situ REGIONAL LYMPH NODES Regional Lymph Node Status All regional lymph nodes negative for tumor Total Number of Lymph Nodes Examined 2 Number of [place] Nodes Examined 1 PATHOLOGIC STAGE CLASSIFICATION (pTNM, AJCC 8th Edition) pT Category pT4b pN Category pN0 ADDITIONAL FINDINGS Additional Findings Multifocal incidental melanocytic nevi and numerous incidental neurofibromas throughout the excision. Comment(s) Tumor block residual melanoma in situ present in blocks A19, A20, A22, and A24. documented in this encounter [facility] Work Phone: 08-07-2024 Miscellaneous Notes Excision Lesion Back, [place] Lymph Node Biopsy (R) Operative Note Date: 08/07/2024 OR Location: [facility] Name: Shawna Grigsby, : 1980, Age: 43 y.o., , Sex: female Diagnosis Pre-op Diagnosis * Melanoma of back (Multi) [C43.59] Post-op Diagnosis * Melanoma of back (Multi) [C43.59] Procedures Excision Lesion Back 23517 - HI EXCISION TUMOR SOFT TIS BACK/FLANK SUBQ 3 CM/> [place] Lymph Node Biopsy 00226 - HI BX/EXC LYMPH NODE OPEN DEEP AXILLARY NODE Surgeons * Yanet Pacheco - Primary Resident/Fellow/Other Metal Casket Assembler: Surgeons and Role: * Sofia Baker PA-C - Assisting Staff: Business Rules Analyst: Bowstring Maker: Nela Lucio Person: Reji Anesthesia Staff: Anesthesiologist: Aiden Larios MD Procedure Summary Anesthesia: General ASA: II Estimated Blood Loss: 10mL Intra-op Medications: Administrations occurring from 0835 to 1120 on 08/07/24: Medication Name Total Dose BUPivacaine HCl (Marcaine) 0.5 % (5 mg/mL) 30 mL, lidocaine (Xylocaine) 30 mL syringe 40 mL fentaNYL PF 0.05 mg/mL 50 mcg glycopyrrolate (Robinul) injection 0.2 mg lidocaine (Xylocaine) injection 2 % 50 mg midazolam (Versed) 1 mg/1 mL 2 mg propofol (Diprivan) injection 10 mg/mL 200 mg rocuronium (ZeMuron) 50 mg/5 mL injection 50 mg ceFAZolin (Ancef) 2 g in dextrose (iso) IV 100 mL 2 g Anesthesia Record Intraprocedure I/O Totals None Specimen: ID Type Source Tests Collected by Time 1 : WIDE LOCAL INCISION MIDBACK Tissue SKIN INCISIONAL BIOPSY DERMPATH LAB- DERMATOPATHOLOGY Yanet Pacheco MD 08/07/2024 0956 2 : RIGHT AXILLARY LYMPH NODE #1 Tissue LYMPH NODE EXCISION DERMPATH LAB- DERMATOPATHOLOGY Yanet Pacheco MD 08/07/2024 1055 INDICATIONS FOR SURGERY Diagnosis: Primary cutaneous melanoma Referring provider: Jimmy Polanco Diagnosis: melanoma Location: back Thickness: 4.3 mm DETAILS OF PROCEDURE Wide Local Excision for Primary Cutaneous Melanoma Operation performed with curative intent Yes Original Breslow thickness of the lesion 4.3 mm (to the tenth of a millimeter) Clinical margin width 2 cm Depth of excision Full-thickness skin/subcutaneous tissue down to fascia (melanoma) Final dimensions of excision: 4 cm x 14 cm Specimen marking stitches: short superior, long left Excision closure: 4-0 monocryl and Dermabond Location of sentinel nodes: right axilla Number of sentinel lymph nodes: 2 The patient arrived at [facility] for the aforementioned procedure. Consent was obtained, history and physical performed, and questions were answered. The patient was moved into the operating room and induced under anesthesia. A timeout was performed prior to surgery. For the wide local excision, the surgical site was prepped and draped in the usual sterile fashion. A margin was drawn about the lesion and this was extended into a 3:1 elliptical incision along natural body lines to facilitate a tension-free closure. Local anesthetic was injected and an incision was made along this ellipse. Electrocautery was used to dissected down to the muscular fascia and the specimen was then removed and oriented with sutures as indicated above. This was sent for permanent dermatopathology. Circumferential soft tissue flaps were created to facilitate closure. The wound was irrigated and hemostasis was achieved. The wound was then closed in a complex multilayer fashion using deep 2-0 Vicryl [id number], interrupted 3-0 Vicryl deep dermals, and a cutaneous closure indicated above. The skin was dressed with Dermabond. For the sentinel lymph node biopsy, the lymph node basin was prepped and draped in the usual sterile fashion after verifying radiotracer presence in this basin with the neoprobe. A 3 cm incision was made over the radioactivity and dissection was carried out with electrocautery to identify the sentinel node. The node/nodes was/were removed using clips and suture as needed to control blood vessels and lymphatics and sent for permanent pathology. The wound was then irrigated and hemostasis achieved. This was closed in a multilayer fashion using a deep 2-0 Vicryl [id number], interrupted deep 3-0 Vicryl, and a running subcuticular 4-0 Monocryl. The skin was dressed with Dermabond. The patient was awoken and returned to the PACU in anticipation of discharge home. I was present scrubbed and directed all operative decision-making. Please note that we will be billing for the BRUNO's mate first as he/she was critical for successful completion of the case including positioning of the body, retraction, suture management, and wound closure. There was no qualified resident available for the case. ADULT SURGERY PRE-OPERATIVE INSTRUCTIONS You will receive notification one business day prior to your surgery to confirm your arrival time and any additional information between 2 P.M. - 5 P.M. It is important that you answer your phone and/or check your messages during this time. You may see in MyChart your surgery start time changes several times even up to the day before your procedure. Please disregard those times and only follow the time given by the lead athlete who will be notifying you via phone and not a text. Please arrive at your scheduled time to avoid delay or cancelled surgery. Please enter the building through either the Main Entrance in front of the hospital or from the Parking Garage Walkway Bridge. From the parking garage, which is free, take the 2nd Floor Walkway Bridge into the hospital and check in at the [facility] Outpatient Desk as you enter the hospital directly in front of you. If you enter through the Main Entrance, take the elevator off the lobby on the right labeled A to the 2nd floor and check in at the [facility] Outpatient Surgery desk as you exit the elevator. Wheelchairs are available for use if using the Main Entrance. Handicap parking in the land lot, in front of hospital by main entrance, wheelchairs are available at this entrance INSTRUCTIONS ABOUT EATING OR DRINKING BEFORE SURGERY: Unless told otherwise by your surgeon, do not eat any solid foods or drink anything after midnight the night prior to your procedure. This also includes no gum, candy, lozenges, ice, or any other oral consumption ADDITIONAL INSTRUCTIONS: Please contact your surgeon s office about any changes in your health, such as bad cold, fever, sore throat, or COVID within the last 4 weeks. Talk to your surgeon for instructions if you should stop your aspirin, NSAIDS, blood thinners, diabetes medicines, weight loss medications, multivitamins or over the counter supplements since many surgeons have you adjust or stop these medications prior to procedure. The doctor s office may also have you contact the prescribing doctor for medication adjustments for your surgery. If you take certain medications such as a Beta Rojelio or Anti-Seizure medication, you may be instructed to take them in the morning of procedure with a sip of water. If this is the case your surgeon's office should let you know, and the PAT nurses will follow up when they speak to you to make sure you are aware. You are allowed 2 adults over the age of 18 to accompany you on the day of surgery. Only one person may be allowed to go back into the pre-operative area with you at a time. If you are not being admitted after your surgery, and you are receiving any type of anesthesia (general, sedation, local, MAC, etc) with your procedure, you must have an adult (age 18 or older) immediately available to drive you home after surgery or your procedure will be cancelled. You may be discharged home after surgery with Uber, Lyft, Taxi or any other transportation service as long as the responsible adult (18 or older) is in the vehicle with you at time of discharge. The bulk driver of these transportation services is not responsible for your care and cannot be considered a responsible adult. We also highly recommend you have someone stay with you for the entire day and night of your surgery. All jewelry and piercings must be removed. If you are unable to remove an item or have a dermal piercing, please be sure to tell the nurse when you arrive for surgery. Nail wallisian must be removed off one finger of each hand Make-up or other beauty products (lotion, deodorant, hairspray, perfume, etc.) must be removed or not used for the day of surgery. Do not wear contacts to hospital, bring your glasses and a case Leave valuables at home except photo ID, insurance card and any co-payment that has been requested by hospital Avoid smoking, consuming alcohol, or any medical or recreational drug use for 24 hours before surgery. To help prevent infection, please take a shower/bath and wash your hair the night before and/or morning of surgery. You can brush your teeth, just do not swallow any water. For adults who are unable to consent or make medical decisions for themselves, a legal guardian or Power of Tray Room Worker must accompany them to the hospital. If this is not possible, please call [phone] to make additional arrangements. Please bring guardianship or legal Power of Tray Room Worker paperwork with you on the day of surgery. Wear comfortable, loose-fitting clothing. Do not bring any home medications with you to the hospital. If you have any questions or concerns, please call Pre-Admission Testing at or your Physician s office Dr. Yanet Pacheco [phone] documented in this encounter [facility] Work Phone: 08-07-2024 Surgery Surgical operation note Excision Lesion Back, [place] Lymph Node Biopsy (R) Operative Note Date: 08/07/2024 OR Location: [facility] Name: Shawna Grigsby, : 1980, Age: 43 y.o., , Sex: female Diagnosis Pre-op Diagnosis * Melanoma of back (Multi) [C43.59] Post-op Diagnosis * Melanoma of back (Multi) [C43.59] Procedures Excision Lesion Back - HI EXCISION TUMOR SOFT TIS BACK/FLANK SUBQ 3 CM/> [place] Lymph Node Biopsy 17456 - HI BX/EXC LYMPH NODE OPEN DEEP AXILLARY NODE Surgeons * Yanet Pacheco - Primary Resident/Fellow/Other Metal Casket Assembler: Surgeons and Role: * Sofia Baker PA-C - Assisting Staff: Business Rules Analyst: Bowstring Maker: Nela Lucio Person: Reji Anesthesia Staff: Anesthesiologist: Aiden Larios MD Procedure Summary Anesthesia: General ASA: II Estimated Blood Loss: 10mL Intra-op Medications: Administrations occurring from 0835 to 1120 on 08/07/24: Medication Name Total Dose BUPivacaine HCl (Marcaine) 0.5 % (5 mg/mL) 30 mL, lidocaine (Xylocaine) 30 mL syringe 40 mL fentaNYL PF 0.05 mg/mL 50 mcg glycopyrrolate (Robinul) injection 0.2 mg lidocaine (Xylocaine) injection 2 % 50 mg midazolam (Versed) 1 mg/1 mL 2 mg propofol (Diprivan) injection 10 mg/mL 200 mg rocuronium (ZeMuron) 50 mg/5 mL injection 50 mg ceFAZolin (Ancef) 2 g in dextrose (iso) IV 100 mL 2 g Anesthesia Record Intraprocedure I/O Totals None Specimen: ID Type Source Tests Collected by Time 1 : WIDE LOCAL INCISION MIDBACK Tissue SKIN INCISIONAL BIOPSY DERMPATH LAB- DERMATOPATHOLOGY Yanet Pacheco MD 08/07/2024 0956 2 : RIGHT AXILLARY LYMPH NODE #1 Tissue LYMPH NODE EXCISION DERMPATH LAB- DERMATOPATHOLOGY Yanet Pacheco MD 08/07/2024 1056 INDICATIONS FOR SURGERY Diagnosis: Primary cutaneous melanoma Referring provider: Jimmy Polanco Diagnosis: melanoma Location: back Thickness: 4.3 mm DETAILS OF PROCEDURE Wide Local Excision for Primary Cutaneous Melanoma Operation performed with curative intent Yes Original Breslow thickness of the lesion 4.3 mm (to the tenth of a millimeter) Clinical margin width 2 cm Depth of excision Full-thickness skin/subcutaneous tissue down to fascia (melanoma) Final dimensions of excision: 4 cm x 14 cm Specimen marking stitches: short superior, long left Excision closure: 4-0 monocryl and Dermabond Location of sentinel nodes: right axilla Number of sentinel lymph nodes: 2 The patient arrived at [facility] for the aforementioned procedure. Consent was obtained, history and physical performed, and questions were answered. The patient was moved into the operating room and induced under anesthesia. A timeout was performed prior to surgery. For the wide local excision, the surgical site was prepped and draped in the usual sterile fashion. A margin was drawn about the lesion and this was extended into a 3:1 elliptical incision along natural body lines to facilitate a tension-free closure. Local anesthetic was injected and an incision was made along this ellipse. Electrocautery was used to dissected down to the muscular fascia and the specimen was then removed and oriented with sutures as indicated above. This was sent for permanent dermatopathology. Circumferential soft tissue flaps were created to facilitate closure. The wound was irrigated and hemostasis was achieved. The wound was then closed in a complex multilayer fashion using deep 2-0 Vicryl [id number], interrupted 3-0 Vicryl deep dermals, and a cutaneous closure indicated above. The skin was dressed with Dermabond. For the sentinel lymph node biopsy, the lymph node basin was prepped and draped in the usual sterile fashion after verifying radiotracer presence in this basin with the neoprobe. A 3 cm incision was made over the radioactivity and dissection was carried out with electrocautery to identify the sentinel node. The node/nodes was/were removed using clips and suture as needed to control blood vessels and lymphatics and sent for permanent pathology. The wound was then irrigated and hemostasis achieved. This was closed in a multilayer fashion using a deep 2-0 Vicryl [id number], interrupted deep 3-0 Vicryl, and a running subcuticular 4-0 Monocryl. The skin was dressed with Dermabond. The patient was awoken and returned to the PACU in anticipation of discharge home. I was present scrubbed and directed all operative decision-making. Please note that we will be billing for the BRUNO's mate first as he/she was critical for successful completion of the case including positioning of the body, retraction, suture management, and wound closure. There was no qualified resident available for the case. T [facility] Work Phone: 08-07-2024 Hospital Discharge instructions Yanet Pacheco MD - 08/07/2024 9:19 AM EDT Melanoma Surgery Discharge Instructions Diet No diet restrictions Pain control For baseline pain control: Tylenol (acetaminophen) 1,000 mg every 8 hours for one week For mild pain: ibuprofen 600 mg every 8 hours with food as needed For moderate to severe pain: Tramadol as prescribed Activity No specific lifting or activity restrictions In general, listen to your body and do not overly stress your surgical sites Incisions Your incisions are covered with skin glue. This is a sterile dressing placed in the operating room. Do not pick or peel it off. This will fall off in 2-3 weeks. No dressing changes or wound care is needed. Do not use any ointments or cleaning agents. You have multiple layers of sutures under the skin that will dissolve. If you have sutures through the skin they will be removed at your postoperative appointment in 3 weeks. You may shower the day after surgery. Let soap and water wash over the incision and pat it dry. No going underwater (bath, pool, [place], ocean, etc.) for 2 weeks. If you notice any of the following, please call Ernestine Clark ([phone]) or Dr. Pacheco's office ([phone]). Swelling under the incision like a golf ball or larger. Redness of the skin that is spreading away from the incision. Drainage from the incision. Fevers, chills, or any other concerning symptoms. Follow-up Call Heidy Horan at [phone] to arrange a postop visit in 2-3 weeks If you have sutures through your skin, these should be removed at [address] Pacheco will discuss your pathology and Tumor Board recommendations at your postop visit. You may see your pathology online prior the visit. Write down any questions you have and bring them to your postop visit. The following attachments cannot be sent through Care Everywhere.General Anesthesia Discharge Instructions (Yoruba)documented in this encounter [facility] Work Phone: 08-07-2024 Attending History and physical note H&P reviewed. The patient was examined and there are no changes to the H&P. Source Note - Yante Pacheco MD - 07/18/2024 11:40 AM EST Assessment and Plan: Shawna Grigsby is a 43 y.o. female referred by Jimmy Polanco with a newly diagnosed melanoma of the back that is 4.3 mm thick, cT4b. After discussing the risks and benefits of wide local excision with sentinel lymph node biopsy the patient understands and would like to proceed. We will look for OR time at [place] in the coming weeks. I believe this will close primarily with a 2 cm margin. Tumor board discussion is pending I spent 60 minutes in the professional and overall care of this patient. Yanet Pacheco MD automobile mechanic assistant Division of Surgical Oncology [phone] [email or web address] History Of Present Illness Referring provider: Jimmy Polanco Diagnosis: melanoma Location: back Thickness: 4.3 mm Margins: negative Subtype: ss High-risk features: ulceration, 6 mitoses All other systems have been reviewed and are negative except as noted in the HPI. I personally reviewed all necessary laboratory results, pathology reports, and radiologic images for this patient. Past Medical History Hydrocephalus with shunt Surgical History demetrice Capps bso, shunt Social History She has no history on file for tobacco use, alcohol use, and drug use. Family History No family history on file. Allergies Patient has no allergy information on record. Last Recorded Vitals There were no vitals taken for this visit. Physical Exam General: no acute distress, well-nourished Eyes: intact EOM, no scleral icterus ENT: hearing intact, no drainage Respiratory: symmetric chest rise, no cough Cardiovascular: intact distal pulses, no pitting edema Abdominal: Soft, nontender Musculoskeletal: no deformities, intact strength Integumentary: Healing biopsy site, no lymphadenopathy Neuro: no focal deficits, sensation intact Psych: normal mood and affect Relevant Results FINAL DIAGNOSIS 5 SLIDES, [facility] , #[id number] (BX: 06/28/2024) SKIN, RIGHT BACK, BIOPSY: MALIGNANT MELANOMA, SEE NOTE. Note: Microscopic examination reveals a specimen that appears to be tangentially sectioned. There are areas of full thickness epidermal necrosis with subepidermal clefting. There are nests of atypical melanocytes in the dermis. There appear to be melanocytes along the dermal-epidermal junction in areas. Part of the epidermis is not visualized and there is no serum crust or neutrophils in this area. The melanocytes stain with antibodies against SOX-10 and PRAME, and do not stain with antibodies against p40. The Breslow thickness is an estimation as this specimen is tangentially sectioned and the Breslow thickness may represent an over or under estimation. Electronically signed out by Ron Aragon MD at 1419 Case Summary Report MELANOMA OF THE SKIN: Biopsy 8th Edition - Protocol posted: 08/13/2021MELANOMA OF THE SKIN: BIOPSY - All Specimens SPECIMEN Procedure Biopsy, shave Specimen Laterality Right TUMOR Tumor Site Skin of trunk: Right back Histologic Type Superficial spreading melanoma (low-cumulative sun damage (CSD) melanoma) Maximum Tumor (Breslow) Thickness (Millimeters) 4.3 mm Ulceration Present Extent of Ulceration (Millimeters) 1 mm Anatomic (Miguelito) Level IV (melanoma invades reticular dermis) Mitotic Rate 6 mitoses per mm2 Microsatellite(s) Not identified Lymphovascular Invasion Not identified Neurotropism Not identified Tumor-Infiltrating Lymphocytes Present, nonbrisk Tumor Regression Not identified MARGINS Margin Status for Invasive Melanoma All margins negative for invasive melanoma Margin Status for Melanoma in situ Melanoma in situ present at margin Margin(s) Involved by Melanoma in Situ Peripheral Deep PATHOLOGIC STAGE CLASSIFICATION (pTNM, AJCC 8th Edition) pT Category pT4b [facility] Work Phone: 08-07-2024 History and physical note H&P reviewed. The patient was examined and there are no changes to the H&P. Source Note - Yanet Pacheco MD - 07/18/2024 11:40 AM EST Assessment and Plan: Shawna Grigsby is a 43 y.o. female referred by Jimmy Polanco with a newly diagnosed melanoma of the back that is 4.3 mm thick, cT4b. After discussing the risks and benefits of wide local excision with sentinel lymph node biopsy the patient understands and would like to proceed. We will look for OR time at [place] in the coming weeks. I believe this will close primarily with a 2 cm margin. Tumor board discussion is pending I spent 60 minutes in the professional and overall care of this patient. Yanet Pacheco MD automobile mechanic assistant Division of Surgical Oncology [phone] [email or web address] History Of Present Illness Referring provider: Jimmy Polanco Diagnosis: melanoma Location: back Thickness: 4.3 mm Margins: negative Subtype: ss High-risk features: ulceration, 6 mitoses All other systems have been reviewed and are negative except as noted in the HPI. I personally reviewed all necessary laboratory results, pathology reports, and radiologic images for this patient. Past Medical History Hydrocephalus with shunt Surgical History Génesis, demetrice bso, shunt Social History She has no history on file for tobacco use, alcohol use, and drug use. Family History No family history on file. Allergies Patient has no allergy information on record. Last Recorded Vitals There were no vitals taken for this visit. Physical Exam General: no acute distress, well-nourished Eyes: intact EOM, no scleral icterus ENT: hearing intact, no drainage Respiratory: symmetric chest rise, no cough Cardiovascular: intact distal pulses, no pitting edema Abdominal: Soft, nontender Musculoskeletal: no deformities, intact strength Integumentary: Healing biopsy site, no lymphadenopathy Neuro: no focal deficits, sensation intact Psych: normal mood and affect Relevant Results FINAL DIAGNOSIS 5 SLIDES, [facility] , #[id number] (BX: 06/28/2024) SKIN, RIGHT BACK, BIOPSY: MALIGNANT MELANOMA, SEE NOTE. Note: Microscopic examination reveals a specimen that appears to be tangentially sectioned. There are areas of full thickness epidermal necrosis with subepidermal clefting. There are nests of atypical melanocytes in the dermis. There appear to be melanocytes along the dermal-epidermal junction in areas. Part of the epidermis is not visualized and there is no serum crust or neutrophils in this area. The melanocytes stain with antibodies against SOX-10 and PRAME, and do not stain with antibodies against p40. The Breslow thickness is an estimation as this specimen is tangentially sectioned and the Breslow thickness may represent an over or under estimation. Electronically signed out by Ron Aragon MD at 1419 Case Summary Report MELANOMA OF THE SKIN: Biopsy 8th Edition - Protocol posted: 08/13/2021MELANOMA OF THE SKIN: BIOPSY - All Specimens SPECIMEN Procedure Biopsy, shave Specimen Laterality Right TUMOR Tumor Site Skin of trunk: Right back Histologic Type Superficial spreading melanoma (low-cumulative sun damage (CSD) melanoma) Maximum Tumor (Breslow) Thickness (Millimeters) 4.3 mm Ulceration Present Extent of Ulceration (Millimeters) 1 mm Anatomic (Miguelito) Level IV (melanoma invades reticular dermis) Mitotic Rate 6 mitoses per mm2 Microsatellite(s) Not identified Lymphovascular Invasion Not identified Neurotropism Not identified Tumor-Infiltrating Lymphocytes Present, nonbrisk Tumor Regression Not identified MARGINS Margin Status for Invasive Melanoma All margins negative for invasive melanoma Margin Status for Melanoma in situ Melanoma in situ present at margin Margin(s) Involved by Melanoma in Situ Peripheral Deep PATHOLOGIC STAGE CLASSIFICATION (pTNM, AJCC 8th Edition) pT Category pT4b documented in this encounter [facility] Work Phone: 07-26-2024 Instructions Formatting of th is note is different from the original. ADULT SURGERY PRE-OPERATIVE INSTRUCTIONS You will receive notification one business day prior to your surgery to confirm your arrival time and any additional information between 2 P.M. - 5 P.M. It is important that you answer your phone and/or check your messages during this time. You may see in [facility] your surgery start time changes several times even up to the day before your procedure. Please disregard those times and only follow the time given by the lead athlete who will be notifying you via phone and not a text. Please arrive at your scheduled time to avoid delay or cancelled surgery. Please enter the building through either the Main Entrance in front of the hospital or from the Parking Garage Walkway Bridge. From the parking garage, which is free, take the 2nd Floor Walkway Bridge into the hospital and check in at the [facility] Outpatient Desk as you enter the hospital directly in front of you. If you enter through the Main Entrance, take the elevator off the lobby on the right labeled A to the 2nd floor and check in at the [facility] Outpatient Surgery desk as you exit the elevator. Wheelchairs are available for use if using the Main Entrance. Handicap parking in the land lot, in front of hospital by main entrance, wheelchairs are available at this entrance INSTRUCTIONS ABOUT EATING OR DRINKING BEFORE SURGERY: Unless told otherwise by your surgeon, do not eat any solid foods or drink anything after midnight the night prior to your procedure. This also includes no gum, candy, lozenges, ice, or any other oral consumption ADDITIONAL INSTRUCTIONS: Please contact your surgeon s office about any changes in your health, such as bad cold, fever, sore throat, or COVID within the last 4 weeks. Talk to your surgeon for instructions if you should stop your aspirin, NSAIDS, blood thinners, diabetes medicines, weight loss medications, multivitamins or over the counter supplements since many surgeons have you adjust or stop these medications prior to procedure. The doctor s office may also have you contact the prescribing doctor for medication adjustments for your surgery. If you take certain medications such as a Beta Rojelio or Anti-Seizure medication, you may be instructed to take them in the morning of procedure with a sip of water. If this is the case your surgeon's office should let you know, and the PAT nurses will follow up when they speak to you to make sure you are aware. You are allowed 2 adults over the age of 18 to accompany you on the day of surgery. Only one person may be allowed to go back into the pre-operative area with you at a time. If you are not being admitted after your surgery, and you are receiving any type of anesthesia (general, sedation, local, MAC, etc) with your procedure, you must have an adult (age 18 or older) immediately available to drive you home after surgery or your procedure will be cancelled. You may be discharged home after surgery with Uber, Lyft, Taxi or any other transportation service as long as the responsible adult (18 or older) is in the vehicle with you at time of discharge. The bulk driver of these transportation services is not responsible for your care and cannot be considered a responsible adult. We also highly recommend you have someone stay with you for the entire day and night of your surgery. All jewelry and piercings must be removed. If you are unable to remove an item or have a dermal piercing, please be sure to tell the nurse when you arrive for surgery. Nail wallisian must be removed off one finger of each hand Make-up or other beauty products (lotion, deodorant, hairspray, perfume, etc.) must be removed or not used for the day of surgery. Do not wear contacts to hospital, bring your glasses and a case Leave valuables at home except photo ID, insurance card and any co-payment that has been requested by hospital Avoid smoking, consuming alcohol, or any medical or recreational drug use for 24 hours before surgery. To help prevent infection, please take a shower/bath and wash your hair the night before and/or morning of surgery. You can brush your teeth, just do not swallow any water. For adults who are unable to consent or make medical decisions for themselves, a legal guardian or Power of Tray Room Worker must accompany them to the hospital. If this is not possible, please call [phone] to make additional arrangements. Please bring guardianship or legal Power of Tray Room Worker paperwork with you on the day of surgery. Wear comfortable, loose-fitting clothing. Do not bring any home medications with you to the hospital. If you have any questions or concerns, please call Pre-Admission Testing at or your Physician s office Dr. Yanet Pacheco [phone] [facility] 07-18-2024 History of Present illness Narrative Assessment and Plan: Shawna Grigsby is a 43 y.o. female referred by Jimmy Polanco with a newly diagnosed melanoma of the back that is 4.3 mm thick, cT4b. After discussing the risks and benefits of wide local excision with sentinel lymph node biopsy the patient understands and would like to proceed. We will look for OR time at [place] in the coming weeks. I believe this will close primarily with a 2 cm margin. Tumor board discussion is pending I spent 60 minutes in the professional and overall care of this patient. Yanet Pacheco MD automobile mechanic assistant Division of Surgical Oncology [phone] [email or web address] History Of Present Illness Referring provider: Jimmy Polanco Diagnosis: melanoma Location: back Thickness: 4.3 mm Margins: negative Subtype: ss High-risk features: ulceration, 6 mitoses All other systems have been reviewed and are negative except as noted in the HPI. I personally reviewed all necessary laboratory results, pathology reports, and radiologic images for this patient. Past Medical History Hydrocephalus with shunt Surgical History Génesis, demetrice bso, shunt Social History She has no history on file for tobacco use, alcohol use, and drug use. Family History No family history on file. Allergies Patient has no allergy information on record. Last Recorded Vitals There were no vitals taken for this visit. Physical Exam General: no acute distress, well-nourished Eyes: intact EOM, no scleral icterus ENT: hearing intact, no drainage Respiratory: symmetric chest rise, no cough Cardiovascular: intact distal pulses, no pitting edema Abdominal: Soft, nontender Musculoskeletal: no deformities, intact strength Integumentary: Healing biopsy site, no lymphadenopathy Neuro: no focal deficits, sensation intact Psych: normal mood and affect Relevant Results FINAL DIAGNOSIS 5 SLIDES, [facility] , #[id number] (BX: 06/28/2024) SKIN, RIGHT BACK, BIOPSY: MALIGNANT MELANOMA, SEE NOTE. Note: Microscopic examination reveals a specimen that appears to be tangentially sectioned. There are areas of full thickness epidermal necrosis with subepidermal clefting. There are nests of atypical melanocytes in the dermis. There appear to be melanocytes along the dermal-epidermal junction in areas. Part of the epidermis is not visualized and there is no serum crust or neutrophils in this area. The melanocytes stain with antibodies against SOX-10 and PRAME, and do not stain with antibodies against p40. The Breslow thickness is an estimation as this specimen is tangentially sectioned and the Breslow thickness may represent an over or under estimation. Electronically signed out by Ron Aragon MD at 1419 Case Summary Report MELANOMA OF THE SKIN: Biopsy 8th Edition - Protocol posted: 08/13/2021MELANOMA OF THE SKIN: BIOPSY - All Specimens SPECIMEN Procedure Biopsy, shave Specimen Laterality Right TUMOR Tumor Site Skin of trunk: Right back Histologic Type Superficial spreading melanoma (low-cumulative sun damage (CSD) melanoma) Maximum Tumor (Breslow) Thickness (Millimeters) 4.3 mm Ulceration Present Extent of Ulceration (Millimeters) 1 mm Anatomic (Miguelito) Level IV (melanoma invades reticular dermis) Mitotic Rate 6 mitoses per mm2 Microsatellite(s) Not identified Lymphovascular Invasion Not identified Neurotropism Not identified Tumor-Infiltrating Lymphocytes Present, nonbrisk Tumor Regression Not identified MARGINS Margin Status for Invasive Melanoma All margins negative for invasive melanoma Margin Status for Melanoma in situ Melanoma in situ present at margin Margin(s) Involved by Melanoma in Situ Peripheral Deep PATHOLOGIC STAGE CLASSIFICATION (pTNM, AJCC 8th Edition) pT Category pT4b documented in this encounter [facility] Work Phone: 06-13-2024 History of Present illness Narrative Reason for Appointment: Patient ID: Shawna Grigsby is a 43 y.o. female who presents for Well Women Visit Patient presents today for Annual Exam. MEDICATIONS Current Outpatient Medications Medication Instructions amphetamine-dextroamphetamine XR (Adderall XR) 10 MG 24 hr capsule 10 mg, Oral, Daily ascorbic acid (Vitamin C) 100 MG chewable tablet Vitamin C B Complex capsule as directed Orally Biotin 5000 MCG sublingual tablet 1 tablet, Oral, Daily calcitriol (ROCALTROL) 0.5 mcg, Oral, Daily cetirizine (ZyrTEC) 10 MG chewable tablet Every 24 hours COLLAGEN-VITAMIN C-BIOTIN PO Oral Cyanocobalamin (Vitamin B 12) 100 MCG lozenge as directed Orally DULoxetine (CYMBALTA) 60 mg, Oral, Daily, Do not crush or chew. estradiol (Estrace) 1 MG tablet TAKE 1 TABLET BY MOUTH EVERY DAY etodolac (LODINE) 500 mg, Oral, Daily, Patient states she is taking 1 every other day famciclovir (FAMVIR) 500 mg, Oral, Daily, States she is taking 1 every other day famotidine (PEPCID) 40 mg, Oral, Nightly Fiber Select Gummies chewable tablet as directed Orally fluticasone (Flonase) 50 MCG/ACT nasal spray 1 spray, Each Nostril, Daily, Shake gently. Before first use, prime pump. After use, clean tip and replace cap. hydroxychloroquine (Plaquenil) 200 MG tablet 1 tablet, Oral, Daily Linzess 72 MCG capsule magnesium oxide (Mag-Ox) 400 MG tablet 1 tablet, Oral, Daily montelukast (Singulair) 10 MG tablet TAKE 1 TABLET A DAY BY MOUTH Multiple Vitamin (Multi Vitamin) tablet Every 24 hours Multiple Vitamins-Minerals (Hair Skin Nails) capsule as directed Orally Nurtec 75 MG tablet dispersible TAKE 1 TABLET BY MOUTH AT ONSET OF MIGRAINE FOR 30 DAYS rosuvastatin (CRESTOR) 5 mg, Oral, Daily vitamin E 180 mg, Oral, Daily ALLERGIES No Known Allergies PROBLEMS Active Ambulatory Problems Diagnosis Date Noted Migraine (CMS/HCC) Neurofibromatosis (CMS/HCC) Insomnia 11/02/2023 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 Paresthesia 11/02/2023 Carpal tunnel syndrome on both sides 11/02/2023 Resolved Ambulatory Problems Diagnosis Date Noted No Resolved Ambulatory Problems Past Medical History: Diagnosis Date Axillary mass, left Benign neoplasm of connective and other soft tissue, unspecified Breast cancer screening by mammogram Encounter for gynecological examination (general) (routine) without abnormal findings H/O: hysterectomy Hammer toe of left foot Headache Hydrocephalus, communicating (CMS/HCC) Left breast mass Menopause Obstructive hydrocephalus (CMS/HCC) PUD (peptic ulcer disease) Vaginal atrophy HISTORY PAST MEDICAL HISTORY SOCIAL HISTORY Past Medical History: Diagnosis Date Axillary mass, left Benign neoplasm of connective and other soft tissue, unspecified Breast cancer screening by mammogram Encounter for gynecological examination (general) (routine) without abnormal findings H/O: hysterectomy Hammer toe of left foot Headache Hydrocephalus, communicating (CMS/HCC) Left breast mass Menopause Migraine (CMS/HCC) Neurofibromatosis (CMS/HCC) Obstructive hydrocephalus (CMS/HCC) PUD (peptic ulcer disease) Vaginal atrophy Social History Tobacco Use Smoking status: Never Smokeless tobacco: Not on file Substance Use Topics Alcohol use: Yes Drug use: Never FAMILY HISTORY Family History Problem Relation Name Age of Onset Other (back pain) Father Crohn's disease Sister Stroke Maternal Grandmother Stroke Maternal Grandfather Stroke Paternal Grandmother Stroke Paternal Grandfather SURGICAL HISTORY Past Surgical History: Procedure Laterality Date CHOLECYSTECTOMY 01/2023 HYSTERECTOMY OTHER SURGICAL HISTORY esophageal endoscopy PELVIC LAPAROSCOPY RIGHT OOPHORECTOMY 02/15/2019 Laparoscopic TOTAL ABDOMINAL HYSTERECTOMY 02/2017 TUMOR REMOVAL from face UPPER ENDOSCOPY W/ ESOPHAGEAL MANOMETRY VENTRICULAR ATRIAL SHUNT x 6 REVIEW OF SYSTEMS Review of Systems: Review of Systems Constitutional: Negative. HENT: Negative. Eyes: Negative. Respiratory: Negative. Cardiovascular: Negative. Gastrointestinal: Negative. Musculoskeletal: Negative. Skin: Negative. Neurological: Negative. Psychiatric/Behavioral: Negative. All other systems reviewed and are negative. Hematological: Negative. Endocrine: Negative. OBJECTIVE Objective: Physical Exam Constitutional: Appearance: Normal appearance. She is normal weight. Genitourinary: Right Adnexa: not tender and no mass present. Left Adnexa: not tender and no mass present. No cervical discharge. Breasts: Breasts are soft. Right: Normal. Left: Normal. HENT: Head: Normocephalic. Nose: Nose normal. Mouth/Throat: Mouth: Mucous membranes are moist. Cardiovascular: Rate and Rhythm: Normal rate. Pulses: Normal pulses. Pulmonary: Effort: Pulmonary effort is normal. Breath sounds: Normal breath sounds. Abdominal: General: Bowel sounds are normal. Palpations: Abdomen is soft. Musculoskeletal: General: Normal range of motion. Cervical back: Normal range of motion. Neurological: General: No focal deficit present. Mental Status: She is alert and oriented to person, place, and time. Skin: General: Skin is warm and dry. Psychiatric: Mood and Affect: Mood normal. Behavior: Behavior normal. Thought Content: Thought content normal. Judgment: Judgment normal. Vitals and nursing note reviewed. Exam conducted with a unix systems administrator present. Vitals: Estimated body mass index is 31.84 kg/m as calculated from the following: Height as of 11/03/23: 5' 0.25 . Weight as of this encounter: 164 lb 6.4 oz. BP: 120/82 No LMP recorded. ASSESSMENT & PLAN ICD-10-CM 1. Well woman exam with routine gynecological exam Z01.419 THIN PREP TIS PAP AND HR HPV DNA Annual Exam: Patient presents today for an annual exam. Patient states she is doing well with complaints of continued hot flashes and night sweats. Pap was obtained without difficulty. No orders of the defined types were placed in this encounter. Follow Up: Patient is to return in one year for annual unless needed otherwise. Documented by SUZANNA Santiago on behalf of: Talon Tilley DO documented in this encounter [facility] 12-10-2021 Note EXAMINATION: CT HEAD WO CON [...] Stable appearance of brain. Electronically authenticated by: ROGELIO VAZQUEZ Date: 2021-12-10 07:26 [facility] Evaluation note No assessment inform ation available [facility] Work Phone: Evaluation note Diagnosis Well woman exam with routine gynecological exam Routine gynecological examination documented in this encounter [facility]* Diagnosis Melanoma of back (Multi)- Primary Melanoma of back (Multi)- Primary documented in this encounter [facility] Work Phone: Evaluation note* Diagnosis Melanoma of back (Multi)- Primary Melanoma of back (Multi) Class 1 obesity due to excess calories with body mass index (BMI) of 31.0 to 31.9 in adult Gastroesophageal reflux disease without esophagitis Esophageal reflux documented in this encounter [facility] Work Phone: Evaluation note* Diagnosis Melanoma of back (Multi) documented in this encounter [facility] Work Phone: Evaluation note* Diagnosis Melanoma of back (Multi)- Primary documented in this encounter [facility] Work Phone: Evaluation note* Diagnosis Melanoma of back (Multi) documented in this encounter [facility] Work Phone: Evaluation note* Diagnosis Melanoma of back (Multi) documented in this encounter [facility] Work Phone: Evaluation note* Diagnosis Melanoma of back (Multi) documented in this encounter [facility] Work Phone: [phone] note* Diagnosis Melanoma of back (Multi) documented in this encounter [facility] Work Phone: [phone] note* Diagnosis Melanoma of back (Multi)- Primary documented in this encounter [facility] Work Phone: [phone] note* Diagnosis Melanoma of back (Multi) documented in this encounter [facility] Work Phone: [phone] note* Diagnosis Neurofibroma of thorax- Primary Melanoma of back (Multi) Neurofibroma of thorax documented in this encounter [facility] Work Phone: Evaluation note* Diagnosis Neurofibroma of thorax- Primary Neurofibroma of thorax Acute postoperative pain Other acute postoperative pain Hyperlipidemia Other and unspecified hyperlipidemia Irritable bowel syndrome Depression Depressive disorder, not elsewhere classified History of migraine headaches Skin cancer Other malignant neoplasm of skin, site unspecified documented in this encounter [facility] Work Phone: [phone] note* Diagnosis Neurofibroma of thorax- Primary documented in this encounter [facility] Work Phone: [phone] note* Diagnosis Mediastinal mass Swelling, mass, or lump in chest documented in this encounter [facility] Work Phone: Evaluation note* Diagnosis Onset Date Resolution Status Admit Date Insomnia acute January 16, 025 9:18am Migraine noneactive January 16 025 9:18am [facility] Work Phone: Reason for referral (narrative)No reason for [facility] Reason for visit Narrative* Auth/Cert Specialty Diagnoses / Procedures Referred By Marixa t Referred To Contact Diagnoses Melanoma of back (Multi) Melanoma of back (Multi) [C43.59] Procedures HI EXCISION TUMOR SOFT TIS BACK/FLANK SUBQ 3 CM/> HI BX/EXC LYMPH NODE OPEN DEEP AXILLARY NODE Excision Lesion Back [place] [address] [address] [facility] [place] [place] Phone: tel: fax: [facility] OR [address] [place] [phone] fax: Referral ID Status Reason Start Date Expiration Date Visits Re quested Visits Authorized [id number] 1 1 [facility] Work Phone: Reepee for visit Narrative* Imaging (Routine) - Authorized Specialty Diagnoses / Procedures Referred By Contac t Referred To Contact Radiology Diagnoses Melanoma of back (Multi) Procedures NM lymphoscintigram Yanet Pacheco MD [id number] [place] [address] [place] [id number] Phone: tel: fax: Referral ID Status Reason Start Date Expiration Date Visits Requested Visits Authorized [id number] Authorized Perform Procedure 07/18/2024 07/18/2025 2 2 [facility] Work Phone: reason for visit Narrative* Imaging (Routine) - Authorized Specialty Diagnoses / Procedures Referred By Contac t Referred To Contact Radiology Diagnoses Melanoma of back (Multi) Procedures NM lymphoscintigram Yanet Pacheco MD [id number] [place] [address] [place] [id number] Phone: tel: fax: Referral ID Status Reason Start Date Expiration Date Visits Requested Visits Authorized [id number] Authorized Perform Procedure 07/18/2024 07/18/2025 2 2 [facility] Work Phone: reason for visit Narrative* Imaging (Emergency) - Authorized Specialty Diagnoses / Procedures Referred By Contac t Referred To Contact Radiology Diagnoses Melanoma of back (Multi) Procedures MR brain w and wo IV contrast MR brain w and wo IV contrast Alanna Pennington MD [address] [address] [place] [phone] Phone: tel: fax: Referral ID Status Reason Start Date Expiration Date Visits Requested Visits Authorized [id number] Authorized Perform Procedure 09/06/2024 09/06/2025 1 1 [facility] Work Phone: reason for visit Narrative* Imaging (Emergency) - Authorized Specialty Diagnoses / Procedures Referred By Contac t Referred To Contact Radiology Diagnoses Melanoma of back (Multi) Procedures NM PET CT whole body NM PET CT whole body Alanna Pennington [place] [id number] [place] [address] Phone: tel: fax: Referral ID Status Reason Start Date Expiration Date Visits Requested Visits Authorized [id number] Authorized Perform Procedure 09/06/2024 09/06/2025 3 3 [facility] Work Phone: reason for visit Narrative* Imaging (Emergency) - Authorized Specialty Diagnoses / Procedures Referred By Contac t Referred To Contact Radiology Diagnoses Melanoma of back (Multi) Procedures NM PET CT whole body NM PET [place] [address] [place] [address] Phone: tel: fax: Referral ID Status Reason Start Date Expiration Date Visits Requested Visits Authorized [id number] Authorized Perform Procedure 09/06/2024 09/06/2025 3 3 [facility] Work Phone: reason for visit Narrative* Imaging (Emergency) - Authorized Specialty Diagnoses / Procedures Referred By Contac t Referred To Contact Radiology Diagnoses Melanoma of back (Multi) Procedures CT guided percutaneous biopsy mediastinum CT guided percutaneous biopsy muscle Consult to Interventional [place] [address] [place] [address] Phone: tel: fax: Referral ID Status Reason Start Date Expiration Date Visits Requested Visits Authorized [id number] Authorized Perform Procedure 10/04/2024 10/04/2025 1 1 [facility] Work Phone: reason for visit Narrative* Auth/Cert Specialty Diagnoses / Procedures Referred By Contac t Referred To Contact Diagnoses 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] Procedures HI THORACOSCOPY W/EXC MEDIASTINAL CYST TUMOR/MASS Robotic assisted posterior mediastinal mass resection - [place] [address] [place] [address] Phone: tel: fax: [facility] [place] [address] [place] [phone] fax: Referral ID Status Reason Start Date Expiration Date Visits Re quested Visits Authorized [id number] 1 1 [facility] Work Phone: Reason for visit Narrative* Imaging (Routine) - Authorized Specialty Diagnoses / Procedures Referred By Marixa t Referred To Contact Radiology Diagnoses Mediastinal mass Procedures XR chest 2 [place] [address] [place] [address] Phone: tel: fax: Referral ID Status Reason Start Date Expiration Date Visits Requested Visits Authorized [id number] Authorized Perform Procedure 12/05/2024 12/05/2025 1 1 [facility] Work Phone: Chief Complaint and Reason for Visit Chief Complaint CTDZ Meds See order Chief Complaint Admit Date Yearly January 16, 2025 9: 18am Reason for Visit Admit Date Insomnia January 16, 2025 9: 18am Migraine January 16, 2025 9: 18am Advance Directives Advance Directive Response Recorded Date/ Time Advance Directives No October 06 1:00pm Date Activated Date Inactivated Comments 08/07/2024 5:55 AM Question Answer Comments Plan of Care: Code Status Discussion Not Compl eted Decision Maker: Provider Rationale: Patient condition does not warra nt discussion Date Activated Date Inactivated Comments 08/07/2024 5:55 AM Question Answer Comments Plan of Care: Code Status Discussion Not Compl eted Decision Maker: Provider Rationale: Patient condition does not warra nt discussion Summary Purpose Family History Relationship Condition Age at Onset Recorded Date/T steven sister Crohn's disease Unknown maternal grandfather Cerebrovascular accident (CVA) Un known maternal grandmother Cerebrovascular accident (CVA) Un known paternal grandfather Cerebrovascular accident (CVA) Un known paternal grandmother Cerebrovascular accident (CVA) Un known father Back pain Unknown Additional Source Comments Care Teams (unrecognized sec [...] Active Damir Laughlin MD Attending Provider Active Chicken Picker Relationship Specialty Start Date End Date Monroe Whitaker MD [address] [place] [address] PCP - General Internal Medicine 06/09/23 Chicken Picker Relationship Specialty Start Date End Date Monroe Whitaker MD [address] [place] [address] PCP - General Internal Medicine 06/09/23 Chicken Picker Relationship Specialty Start Date End Date Monroe Whitaker MD [address] [place] [address] PCP - General Internal Medicine 06/09/23 Chicken Picker Relationship Specialty Start Date End Date Monroe Whitaker DO [address] [place] [address] PCP - General Internal Medicine 07/07/24 Migel Polanco MD [address] [address] Referring Physician Dermatology 07/07/24 Chicken Picker Relationship Specialty Start Date End Date Monroe Whitaker DO [address] [place] [address] PCP - General Internal Medicine 07/07/24 Migel Polanco MD [address] [facility] [address] [place] [address] Referring Physician Dermatology 07/07/24 Chicken Picker Relationship Specialty Start Date End Date Monroe Whitaker DO [facility] [place] [address] PCP - General Internal Medicine 07/07/24 Migel Polanco MD [address] [address] Referring Physician Dermatology 07/07/24 Chicken Picker Relationship Specialty Start Date End Date Monroe Whitaker DO [address] [place] [address] PCP - General Internal Medicine 07/07/24 Migel Polanco MD [address] [address] Referring Physician Dermatology 07/07/24 Chicken Picker Relationship Specialty Start Date End Date Monroe Whitaker DO [facility] [place] [address] PCP - General Internal Medicine 07/07/24 Migel Polanco MD [address] [facility] [address] [place] [address] Referring Physician Dermatology 07/07/24 Chicken Picker Relationship Specialty Start Date End Date Monroe Whitaker DO [facility] [place] [address] PCP - General Internal Medicine 07/07/24 Migel Polanco MD [address] [facility] [address] [place] [address] Referring Physician Dermatology 07/07/24 [place] [address] [place] [address] Consulting Physician Hematology and Oncology 09/06/24 Chicken Picker Relationship Specialty Start Date End Date Monroe Whitaker DO [facility] [place] [address] PCP - General Internal Medicine 07/07/24 Migel Polanco MD [address] [address] Referring Physician Dermatology 07/07/24 [place] [address] [place] [address] Consulting Physician Hematology and Oncology 09/06/24 Francheska Hayden, RN Patient Community Coordinator Hematology and Oncology 09/06/24 Chicken Picker Relationship Specialty Start Date End Date Monroe Whitaker DO [address] [place] [address] PCP - General Internal Medicine 07/07/24 Migel Polanco MD [address] [facility] [address] [place] [address] Referring Physician Dermatology 07/07/24 [place] [address] [place] [address] Consulting Physician Hematology and Oncology 09/06/24 Francheska Hayden, RN Patient Community Coordinator Hematology and Oncology 09/06/24 Chicken Picker Relationship Specialty Start Date End Date Monroe Whitaker DO [facility] [place] [address] PCP - General Internal Medicine 07/07/24 Migel Polanco MD [address] [facility] [address] [place] [address] Referring Physician Dermatology 07/07/24 [place] [address] [place] [address] Consulting Physician Hematology and Oncology 09/06/24 Francheska Hayden, RN Patient Community Coordinator Hematology and Oncology 09/06/24 Chicken Picker Relationship Specialty Start Date End Date Monroe Whitaker DO [facility] [place], [place] [id number] PCP - General Internal Medicine 07/07/24 [facility] [address] [facility] [address] [place] [address] Referring Physician Dermatology 07/07/24 [place] [address] [place] [address] Consulting Physician Hematology and Oncology 09/06/24 Francheska Hayden, RN Patient Community Coordinator Hematology and Oncology 09/06/24 Chicken Picker Relationship Specialty Start Date End Date Monroe Whitaker DO [facility] [place] [address] PCP - General Internal Medicine 07/07/24 Migel Polanco MD [address] [place] [address] [place] [address] Referring Physician Dermatology 07/07/24 [place] [address] [place] [address] Consulting Physician Hematology and Oncology 09/06/24 Francheska Hayden, RN Patient Community Coordinator Hematology and Oncology 09/06/24 Chicken Picker Relationship Specialty Start Date End Date Monroe Whitaker DO [address] [place] [address] PCP - General Internal Medicine 07/07/24 Migel Polanco MD [address] [facility] [address] [place] [address] Referring Physician Dermatology 07/07/24 [place] [address] [place] [address] Consulting Physician Hematology and Oncology 09/06/24 Francheska Hayden, RN Patient Community Coordinator Hematology and Oncology 09/06/24 Chicken Picker Relationship Specialty Start Date End Date Monroe Whitaker DO [address] [place] [address] PCP - General Internal Medicine 07/07/24 Migel Polanco MD [address] [place] [address] [place] [address] Referring Physician Dermatology 07/07/24 [place] [address] [place] [address] Consulting Physician Hematology and Oncology 09/06/24 Francheska Hayden, RN Patient Community Coordinator Hematology and Oncology 09/06/24 Chicken Picker Relationship Specialty Start Date End Date Monroe Whitaker DO [address] [place] [address] PCP - General Internal Medicine 07/07/24 Migel Polanco MD [address] [address] Referring Physician Dermatology 07/07/24 [place] [address] [place] [address] Consulting Physician Hematology and Oncology 09/06/24 Francheska Hayden, RN Patient Community Coordinator Hematology and Oncology 09/06/24 Team Status: Inactive Member Role Status Dates Monroe Whitaker JR DO Primary Care Provider Active Start: January 16, 2025 End: January 16, 2025 Maria Flowers APRN Attending Provider Active Start: January 16, 2025 End: January 16, 2025 Goals (unrecognized section and content) Goals may be documented in a n alternate sectionGoals may be documented in an alternate sectionGoals may be documented in an alternate sectionGoals may be documented in an alternate section INFORMATION SOURCE (unrecogn ized section and content) DATE CREATED AUTHOR 05/15/2022 [facility] DATE CREATED AUTHOR AUTHOR'S ORGANIZ ATION 01/07/2023 [facility] DATE CREATED AUTHOR AUTHOR'S ORGANIZ ATION 01/29/2023 [facility] DATE CREATED AUTHOR AUTHOR'S ORGANIZ ATION 06/14/2024 [facility] DATE CREATED AUTHOR AUTHOR'S ORGANIZ ATION 07/19/2024 [facility] DATE CREATED AUTHOR AUTHOR'S ORGANIZ ATION 11/04/2024 [facility] DATE CREATED AUTHOR AUTHOR'S ORGANIZ ATION 11/21/2024 [facility] [place] DATE CREATED AUTHOR AUTHOR'S ORGANIZ ATION 12/15/2024 [facility] Reason for Visit (unrecogniz ed section and content) Reason Comments Well Women Visit Reason Comments New Patient Visit Reason Comments New Patient Visit Specialty Diagnoses / Procedures Referred By Marixa t Referred To Contact Hematology and Oncology Diagnoses Melanoma of back (Multi) [place] [address] [facility] [place] [address] Phone: tel: fax: [place] [address] [place] [address] Phone: tel: fax: Referral ID Status Reason Start Date Expiration Date Visits Requested Visits Authorized [id number] Authorized Specialty Services Required 08/29/2024 08/29/2025 1 1 Reason Comments Post-op Thoracic Surgery Scheduled Active and Recently Administ ered Medications (unrecognized section and content) Medication Order 08/05/2024 08/06/2024 08/07/2024 ceFAZolin (Ancef) 2 g in dextrose (iso) IV 100 mL (COMPLETED) 2 g, intravenous, Administer over 30 Minutes, Once, On Wed08/07/24 at 0900, For 1 dose, Intraprocedure, Administer within 60 minutes prior to incision. premix bag, Dosing of this medication varies based on severity of illness. Does this patient have sepsis or concern for sepsis (probable or documented infection plus systemic manifestations of infection)? No, Suspected Indication (Select all that apply): Surgical Prophylaxis, Indications: Surgical Prophylaxis 927 (Given - Provid er: Aiden Larios MD) oxygen (O2) therapy inhalation, Continuous - , First dose on Wed08/07/24 at 1145, Recovery (only), Discontinue when criteria met, Device: Nasal Cannula, Rate in liters per minute: 2 LPM, Keep O2 Sat Above: 92% 1145 (Due) Continuous Medication Order 08/05/2024 08/06/2024 08/07/2024 lactated Ringer's infusion 50 mL/hr, intravenous, Continuous, Starting on Wed08/07/24 at 0615, For 1 day 0900 (New Bag - Prov ider: Aiden Larios MD)1100 (Paused - Provider: Aiden Larios MD - Comment: Switch to gravity)1101 (Restarted - Provider: Aiden Larios MD)1313 (Stopped - Provider: Candy Cervantes RN) lactated Ringer's infusion 100 mL/hr, intravenous, Continuous, Starting on Wed08/07/24 at 1145, For 1 day, Recovery (only) 1145 (Due) PRN Medication Order 08/05/2024 08/06/2024 08/07/2024 BUPivacaine HCl (Marcaine) 0.5 % (5 mg/mL) 30 mL, lidocaine (Xylocaine) 30 mL syringe (CANCELED) As needed, Starting on Wed08/07/24 at 0939, Intraprocedure 0939 (Given - Provid er: Yanet Pacheco MD - Comment: 20ML AT BACK 20ML AT AXILLA) fentaNYL PF (Sublimaze) injection 50 mcg 50 mcg, intravenous, Every 5 min PRN, pain moderate (4-6), first line, Starting on Wed08/07/24 at 1129, For 3 doses, Recovery (only), Max total of 200 micrograms regardless of dose., If ordered PRN for pain, nurse is permitted to administer this medication for higher pain scores based on patient preference? Yes 1138 (Given - Provid er: Elaina Okeefe RN)1145 (Given - Provider: Elaina Okeefe RN) HYDROmorphone (Dilaudid) injection 0.5 mg 0.5 mg, intravenous, Every 5 min PRN, pain severe (7-10), first line, Starting on Wed08/07/24 at 1129, For 3 doses, Recovery (only), Max total of 4 mg regardless of dose. meperidine PF (Demerol) injection 12.5 mg 12.5 mg, intravenous, Every 10 min PRN, shivering, Starting on Wed08/07/24 at 1129, Recovery (only) ondansetron (Zofran) injection 4 mg 4 mg, intravenous, Once as needed, nausea/vomiting, first line, Starting on Wed08/07/24 at 1129, For 1 dose, Recovery (only), When administering via IV Push, administer over 3-5 minutes. oxyCODONE (Roxicodone) immediate release tablet 5 mg 5 mg, oral, Every 4 hours PRN, pain mild (1-3), first line, Starting on Wed08/07/24 at 1233, Phase II/On Unit, When able to take oral medications., If ordered PRN for pain, nurse is permitted to administer this medication for higher pain scores based on patient preference? Yes 1241 (Given - Provid er: Candy Cervantes RN) promethazine (Phenergan) 6.25 mg in sodium chloride 0.9% 50 mL IV 6.25 mg, intravenous, Administer over 15 Minutes, Once as needed, Nausea/vomiting, second line, Starting on Wed08/07/24 at 1233, For 1 dose, Phase II/On Unit sodium chloride 0.9 % irrigation solution (CANCELED) As needed, Starting on Wed08/07/24 at 1107, Intraprocedure 1107 (Given - Provid er: Yanet Pacheco MD) Scheduled Medication Order 11/19/2024 11/20/2024 11/21/2024 acetaminophen (Tylenol) tablet 650 mg 650 mg, oral, Every 6 hours, First dose on Wed11/20/24 at 204, If ordered PRN for pain, nurse is permitted to administer this medication for higher pain scores based on patient preference? Yes 2143 (Given - Provider: Zoey Lozano RN) 0306 (Given - Provider: Zoey Lozano RN)0849 (Given - Provider: Yue Toledo RN)1445 (Due)2044 (Due) ceFAZolin (Ancef) 2 g in dextrose (iso) IV 50 mL (COMPLETED) 2 g, intravenous, at 100 mL/hr, Administer over 30 Minutes, Every 8 hours, First dose on Wed11/20/24 at 1530, For 2 doses, Phase II/On Unit, Duplex bag - activate before hanging., Suspected Indication (Select all that apply): Surgical Prophylaxis, Dosing of this medication varies based on severity of illness. Does this patient have sepsis or concern for sepsis (probable or documented infection plus systemic manifestations of infection)? No, Indications: Surgical Prophylaxis 1455 (New Bag - Provider: Melissa Barber RN)1535 (Stopped - Provider: Yue Alvarado RN)2350 (New Bag - Provider: Zoey Lozano RN) 0020 (Stopped - Provider: Zoey Lozano RN) cholecalciferol (Vitamin D-3) tablet 25 mcg 25 mcg, oral, Daily, First dose on Wed11/20/24 at 1130, Phase II/On Unit 1212 (Given - Provider: Melissa Barber RN) 0849 (Given - Provider: Yue Toledo RN) docusate sodium (Colace) capsule 100 mg 100 mg, oral, 2 times daily, First dose on Wed11/20/24 at 1130, Phase II/On Unit, Bowel Regimen - for prevention of constipation 1212 (Given - Provider: Melissa Barber RN)2144 (Given - Provider: Zoey Lozano RN) 0923 (Not Given - Provider: Yue Toledo RN - Reason: Patient/family refused)2100 (Due) DULoxetine (Cymbalta) DR capsule 60 mg 60 mg, oral, Daily, First dose on Wed11/20/24 at 1130, Phase II/On Unit, Do not crush or chew. 1212 (Given - Provider: Melissa Barber RN) 0848 (Given - Provider: Yue Toledo RN) estradiol (Estrace) tablet 1 mg 1 mg, oral, 2 times daily, First dose on Wed11/20/24 at 1130, Phase II/On Unit 1212 (Given - Provider: Melissa Barber RN)2143 (Given - Provider: Zoey Lozano RN) 0849 (Given - Provider: Yue Toledo RN)2100 (Due) famciclovir (Famvir) tablet 500 mg 500 mg, oral, Daily, First dose on Wed11/20/24 at 1130, Phase II/On Unit, Coverage: Herpes simplex, Infection Site: Prophylaxis 1455 (Given - Provider: Melissa Barber RN) 0849 (Given - Provider: Yue Toledo RN) famotidine (Pepcid) tablet 40 mg 40 mg, oral, Daily, First dose on Wed11/20/24 at 1130, Phase II/On Unit 1212 (Given - Provider: Melissa Barber RN) 0849 (Given - Provider: Yue Toledo RN) gabapentin (Neurontin) capsule 300 mg 300 mg, oral, Every 8 hours scheduled, First dose on Wed11/20/24 at 2200, Capsules may be opened and sprinkled on food (eg, applesauce, orange juice, pudding 2143 (Given - Provider: Zoey Lozano RN) 0600 (Given - Provider: Zoey Lozano RN)1400 (Due)2200 (Due) heparin (porcine) injection 5,000 Units (COMPLETED) 5,000 Units, subcutaneous, Once, On Wed11/20/24 at 0615, For 1 dose, Preprocedure, Given in preop, Indications: deep vein thrombosis prevention 06 (Given - Provider: Leisa Hartley RN) heparin (porcine) injection 5,000 Units 5,000 Units, subcutaneous, Every 8 hours, First dose on Wed11/20/24 at 2100, Phase II/On Unit 2142 (Given - Provider: Zoey Lozano RN) 0600 (Given - Provider: Zoey Lozano RN)1300 (Due)2100 (Due) lidocaine 4 % patch 1 patch 1 patch, transdermal, Administer over 12 Hours, Daily, First dose on Wed11/20/24 at 2044, Apply to left chest wall. Patch will remain on for 12 hours, then removed for [address] patch directly over any surgical incisions or wounds. 2142 (Medication Applied - Provider: Zoey Lozano RN) 0851 (Medication Applied - Provider: Yue Toledo RN - Comment: left flank)2050 (Due: Medication Removed - Provider: Yue Toledo RN) linaCLOtide (Linzess) capsule 72 mcg 72 mcg, oral, Daily before breakfast, First dose on Wed11/21/24 at 0600, Phase II/On Unit, Do not break or crush capsule. If difficulty swallowing, may sprinkle capsule contents in 30 mL water or 5 mL applesauce if swallowed without chewing. Use immediately after mixing. 0600 (Not Given - Provider: Yue Toledo RN - Reason: Patient/family refused - Comment: wants to take at home later today) magnesium oxide (Mag-Ox) 400 mg (241.3 mg elemental) tablet 1 tablet 1 tablet (400 mg of magnesium oxide), oral, Daily, First dose on Wed11/20/24 at 1130, Phase II/On Unit 1212 (Given - Provider: Melissa Barber RN) 0848 (Given - Provider: Yue Toledo, CARLOS) methocarbamol (Robaxin) tablet 500 mg (CANCELED) 500 mg, oral, Every 6 hours scheduled, First dose on Wed11/20/24 at 2045 2143 (Given - Provider: Zoey Lozano RN) 0306 (Given - Provider: Zoey Lozano RN) montelukast (Singulair) tablet 10 mg 10 mg, oral, Nightly, First dose on Wed11/20/24 at 2100, Phase II/On Unit 214 (Given - Provider: Zoey Lozano RN) 2100 (Due) pantoprazole (ProtoNix) EC tablet 40 mg (CANCELED) 40 mg, oral, Daily before breakfast, First dose on Wed11/21/24 at 0600, Phase II/On Unit, Do not crush, chew, or split. 0600 (Given - Provid er: Zoey Lozano RN) polyethylene glycol (Glycolax, Miralax) packet 17 g 17 g, oral, Daily, First dose on Wed11/20/24 at 1130, Phase II/On Unit, Bowel Regimen - for prevention of constipation. 1225 (Not Given - Provider: Melissa Barber RN - Reason: Patient/family refused) 0923 (Not Given - Provider: Yue Toeldo RN - Reason: Patient/family refused) rosuvastatin (Crestor) tablet 5 mg 5 mg, oral, Daily, First dose on Wed11/20/24 at 2100, Phase II/On Unit 214 (Given - Provider: Zoey Lozano RN) 2100 (Due) vitamin E capsule 180 mg 180 mg, oral, Daily, First dose on Wed11/20/24 at 1130, Phase II/On Unit 1212 (Given - Provider: Melissa Barber RN) 0849 (Given - Provider: Yue Toledo, CARLOS) Continuous Medication Order 11/19/2024 11/20/2024 11/21/2024 lactated Ringer's infusion (CANCELED) 50 mL/hr, intravenous, Continuous, Starting on Wed11/20/24 at 0615, For 1 day 0628 (New Bag - Provider: Leisa Hartley RN)0732 (Continued by Anesthesia - Provider: Rogelio Clifton APRN-CHECK GRADER)1101 (Stopped - Provider: Melissa Barber RN - Comment: [Order ends at this time. Document the following action when infusion is complete: Stopped]) sodium chloride 0.9% infusion () 100 mL/hr, intravenous, Continuous, Starting on Wed11/20/24 at 1130, For 5 hours, Phase II/On Unit, DC once tolerating oral intake 1100 (Rate/Dose Verify - Provider: Melissa Barber RN)1211 (New Bag - Provider: Melissa Barber RN)1459 (Stopped - Provider: Melissa Barber RN - Comment: [Order ends at this time. Document the following action when infusion is complete: Stopped]) PRN Medication Order 11/19/2024 11/20/2024 11/21/2024 acetaminophen (Tylenol) tablet 650 mg 650 mg, oral, Every 4 hours PRN, pain mild (1-3), first line, Starting on Wed11/20/24 at 1100, Phase II/On Unit, If ordered PRN for pain, nurse is permitted to administer this medication for higher pain scores based on patient preference? Yes albuterol 2.5 mg /3 mL (0.083 %) nebulizer solution 2.5 mg 2.5 mg, nebulization, Every 6 hours PRN, wheezing, shortness of breath, Starting on Wed11/20/24 at 1100, Phase II/On Unit, Frequency shoud be adjusted according to peak flow values. benzocaine-menthol (Cepastat Sore Throat) lozenge 1 lozenge 1 lozenge, Mouth/Throat, Every 2 hour PRN, sore throat, Starting on Wed11/20/24 at 1100, Phase II/On Unit BUPivacaine-EPINEPHrine (Marcaine w/EPI) 0.25 %-1:200,000 injection (CANCELED) As needed, Starting on Wed11/20/24 at 0857, Intraprocedure 0857 (Given - Provider: Harsha Ojeda MD) diphenhydrAMINE (BENADryl) injection 25 mg 25 mg, intravenous, Every 6 hours PRN, itching, Starting on Wed11/20/24 at 1100, Phase II/On Unit 1225 (Given - Provider: Melissa Barber RN)2357 (Given - Provider: Zoey Lozano RN) fentaNYL PF (Sublimaze) injection 25 mcg (CANCELED) 25 mcg, intravenous, Every 5 min PRN, pain moderate (4-6), first line, Starting on Wed11/20/24 at 0920, Recovery (only), Max total of 200 micrograms regardless of dose., If ordered PRN for pain, nurse is permitted to administer this medication for higher pain scores based on patient preference? Yes 1008 (Given - Provider: Mikala Okeefe RN)1013 (Given - Provider: Mikala Okeefe RN)1019 (Given - Provider: Mikala Okeefe RN)1024 (Given - Provider: Mikala Okeefe RN) HYDROmorphone (Dilaudid) injection 0.5 mg (CANCELED) 0.5 mg, intravenous, Every 5 min PRN, pain severe (7-10), first line, Starting on Wed11/20/24 at 0920, Recovery (only), Max total of 4 mg regardless of dose. 0939 (Given - Provider: Mikala Okeefe RN)0944 (Given - Provider: Mikala Okeefe RN)0956 (Given - Provider: Mikala Okeefe RN)1027 (Given - Provider: Mikala Okeefe RN) HYDROmorphone (Dilaudid) injection 0.5 mg 0.5 mg, intravenous, Every 2 hour PRN, pain severe (7-10), second line, pain breakthrough, Starting on Wed11/20/24 at 1100, Phase II/On Unit 2144 (Given - Provider: Zoey Lozano, CARLOS) 0306 (Given - Provider: Zoey Lozano RN) methocarbamol (Robaxin) tablet 500 mg 500 mg, oral, Every 6 hours PRN, muscle spasms, Starting on Wed11/21/24 at 0540 naloxone (Narcan) injection 0.2 mg 0.2 mg, intravenous, Every 5 min PRN, respiratory depression, Starting on Wed11/20/24 at 1100, Phase II/On Unit, If respiratory rate is less than 8 breaths/minute or patient is difficult to arouse stop any narcotics and contact physician. Administer slow IV push. Repeat as ordered until patient's respiratory rate is greater than 12 breaths/minute. ondansetron (Zofran) injection 4 mg(Linked Group 1) 4 mg, intravenous, Every 6 hours PRN, nausea/vomiting, first line, Starting on Wed11/20/24 at 1100, Phase II/On Unit, Administer IV if patient unable to take oral tablet. When administering via IV Push, administer over 3-5 minutes. ondansetron ODT (Zofran-ODT) disintegrating tablet 4 mg(Linked Group 1) 4 mg, oral, Every 6 hours PRN, nausea/vomiting, first line, Starting on Wed11/20/24 at 1100, Phase II/On Unit, 1st Line. Patient should allow tablet to dissolve on tongue. Do not remove from blister pack until just before administering. If inadequate response within 60 minutes, proceed to next-line agent for same PRN reason or contact provider if no further options ordered. oxyCODONE (Roxicodone) immediate release tablet 10 mg 10 mg, oral, Every 4 hours PRN, pain severe (7-10), first line, Starting on Wed11/20/24 at 1100, Phase II/On Unit, If ordered PRN for pain, nurse is permitted to administer this medication for higher pain scores based on patient preference? Yes 1126 (Given - Provider: Melissa Barber RN)1037 (Given - Provider: Melissa Barber RN)2509 (Given - Provider: Zoey Lozano RN) oxyCODONE (Roxicodone) immediate release tablet 5 mg 5 mg, oral, Every 4 hours PRN, pain moderate (4-6), first line, Starting on Wed11/20/24 at 1100, Phase II/On Unit, If ordered PRN for pain, nurse is permitted to administer this medication for higher pain scores based on patient preference? Yes 5934 (Given - Provid er: Yue Toledo RN) oxygen (O2) therapy inhalation, Continuous PRN - O2/gases, other, Starting on Wed11/20/24 at 1100, Phase II/On Unit, Wean oxygen as tolerated, discontinue when room air pulse oximetry measures greater than 90%., Device: Nasal Cannula, Rate in liters per minute: 2 LPM, Keep O2 Sat Above: 90% 1100 (Rate Change Medical Gas - Provider: Melissa Barber RN) sodium chloride 0.9 % irrigation solution (CANCELED) As needed, Starting on Wed11/20/24 at 0817, Intraprocedure 0817 (Given - Provider: Harsha Ojeda MD) Linked Groups Order Group 1: ondansetron ODT (Zofran-ODT) disintegrating tablet 4 mgJump to med 4 mg, oral, Every 6 hours PRN, nausea/vomiting, first line, Starting on Wed11/20/24 at 1100, Phase II/On Unit, 1st Line. Patient should allow tablet to dissolve on tongue. Do not remove from blister pack until just before administering. If inadequate response within 60 minutes, proceed to next-line agent for same PRN reason or contact provider if no further options ordered. Or ondansetron (Zofran) injection 4 mgJump to med 4 mg, intravenous, Every 6 hours PRN, nausea/vomiting, first line, Starting on Wed11/20/24 at 1100, Phase II/On Unit, Administer IV if patient unable to take oral tablet. When administering via IV Push, administer over 3-5 minutes. FOR RECORDS PERTAINING TO PATIENTS WHO ARE [...] BE BASED ON THE PRIMARY CLINICAL RECORDS. [facility] provides no warranty or guarantee of the accuracy or completeness of information in this document.
[2025-01-30 12:14] LABS: Hematocrit 41.0 % (36.0-48.0); Hemoglobin 13.4 g/dL (12.0-16.0); Immature Granulocytes Abs Auto 0.09 10^3/uL (0.00-0.03); Immature Granulocytes Pct Auto 1.2 % (0.0-0.5); Lymphocytes Absolute Auto 1.7 10^3/uL (1.2-3.8); Mean Corpuscular HGB Conc 32.7 g/dL (29.9-35.2); Mean Corpuscular Hemoglobin 30.9 pg (26.7-34.0); Mean Corpuscular Volume 94.7 fL (81.0-99.0); Platelet Count 261 10^3/uL (150-450); Red Blood Count 4.33 10^6/uL (4.20-5.40); White Blood Count 7.7 10^3/uL (4.0-11.0)
[2025-01-30 12:51] LABS: Alanine Aminotransferase 25 U/L (14-59); Albumin Globulin Ratio 0.8; Albumin Level 3.3 g/dL (3.4-5.0); Alkaline Phosphatase 90 U/L (46-116); Anion Gap 13.7; Aspartate Amino Transferase 9 U/L (15-37); Blood Urea Nitrogen 11.0 mg/dL (7.0-18.0); Carbon Dioxide 26.1 mmol/L (21.0-32.0); Chloride 107 mmol/L (98-107); Estimated GFR (African America >60 (>=60 mL/min/1.73m^2); Estimated GFR (Non-African Ame >60 (>=60 mL/min/1.73m^2); Globulin 4.2 g/dL; Glucose 91 mg/dL (74-106); NT Pro B Type Natriuretic Pept 111.0 pg/mL (<=450.0); Potassium 3.8 mmol/L (3.5-5.1); Sodium 143 mmol/L (136-145); Thyroid Stimulating Hormone 1.588 uIU/mL (0.358-3.740); Total Protein 7.5 g/dL (6.4-8.2)
== END 2025-01-30 11:50 | disposition home or self-care (01) ==
LOC: LAB 11:50
PROVIDERS: PCP Internal Medicine; Visit Provider Internal Medicine
DX: Z79.899 Other long term (current) drug therapy (principal)
CPT/HCPCS: 36415; 80051; 80076; 82565; 82947; 83880; 84443; 84520; 85025; 85378

== ENCOUNTER 2025-02-03 11:22 | Outpatient (OUT) | payer BC, SELFPAY ==
--- OUTSIDE RECORDS SUMMARY | 2025-02-03 11:25 | XMS_ITS | CCD ---
Author Organization [facility] CliniSynj Care Team Providers Care Radio Frequency Technician Name Role Phone MD Emmanuel Laughlin Attending Provider NO FAMILY, PHYSICIAN Primary Care Provider Unava ilable JR Monroe Whitaker Primary Care Provider [phone] OTILIA, DR NATARAJAN Attending Unavailable KARASIK, DR [...] Consulting Unavailable MONROE WHITAKER Referring Unavailable Bobby ROBERT Attending Unavailable JR Monroe Whitaker Primary Care Provider MD Damir Laughlin Attending Provider [phone] Monroe Whitaker Primary Care Unavailable Damir Laughlin Attending Unavailable Damir Laughlin Admitting Unavailable Monroe Whitaker MD Primary Care Provider [phone] MARIA RICE Attending Unavailable TALON TILLEY Attending Unavailable Migel Polanco MD Unavailable [phone] Monroe Whitaker DO Primary Care Provider Gorge ARANGO, Alanna Glover Unavailable Catracho GONZALEZ, [place] Unavailable Unavailab YANET Irene Attending Unavailable MIGEL [...] Medication Allergies] Propensity to adverse reactions (disorder) [facility] [place] Repository Medications Current Medications Medication Drug Class(es) [...] O2 Sat Above: 92% polyethylene glycol 3350 60102 mg powder for oral solution (1 source) [...] II/On Unit, DC once tolerating oral intake Ur-80n-hrdxjbsnmwm (Lymphoseek) injection 0.61 millicurie (1 source) Start: [...] 3 Chronic Other aftercare (1 source) Other continuous churn buttermaker (current) drug therapy; Translations: [OTH EMERGENCY DEPARTMENT RN CURRENT DRUG THERAPY] Onset: 2 Episodic Other [...] XR CHEST 1 VIEW 11/21/2024. ACCESSION NUMBER(S): [id number] ORDERING CLINICIAN: HARSHA OJEDA FINDINGS: The cardiomediastinal silhouette size is within normal limits. There is no focal consolidation, edema or pneumothorax. No sizeable pleural effusion. FINANCIAL ACCOUNTING MANAGER shunt catheter tubing visualized projecting over the right hemithorax. Right axillary surgical clips. IMPRESSION: 1. No acute cardiopulmonary process. MACRO: None. Signed by: Raquel Sweeney 12/09/2024 8:14 AM Dictation workstation: [id number] Normal [facility] Basic metabolic 2000 panelon 11-21-2024 Anion gap [Moles/Vol] 12 mmol/L 10 - 2 0 mmol/L [facility] Calcium [Mass/Vol] 8.3 mg/dL Low 8.6 - 10. 3 mg/dL [facility] Chloride [Moles/Vol] 103 mmol/L 98 - 10 7 mmol/L [facility] CO2 [Moles/Vol] 26 mmol/L 21 - 32 mmol/L [facility] Creatinine [Mass/Vol] 0.7 mg/dL 0.50 - 1.05 mg/dL [facility] eGFR - PINF [facility] Comment on above: Calculations of iraj mated GFR are performed using the 2020 CKD-EPI Study Refit equation without the race variable for the IDMS-Traceable creatinine methods. https://jasn.asnjournals.org/content/early//ASN.2020 261136 Glucose [Mass/Vol] 100 mg/dL High 74 - 99 mg/dL [facility] Interpretation and review of laboratory results Abnormal [facility] Potassium [Moles/Vol] 3.8 mmol/L 3.5 - 5.3 mmol/L [facility] Sodium [Moles/Vol] 137 mmol/L 136 - 145 mmol/L [facility] Urea nitrogen [Mass/Vol] 9 mg/dL 6 - 23 mg/dL [facility] Anion gap [Moles/Vol] 12 mmol/L Normal 10-20 [facility] Comment on above: Performed By: #### 2 4321-2 #### HARLEEN QUINTANA ([id number]) [facility] ([facility]) [address] [place] [address] Calcium [Mass/Vol] 8.3 mg/dL Low 8.6-10.3 [facility] Comment on above: Performed By: #### 2 4321-2 #### HARLEEN QUINTANA ([id number]) [facility] ([facility]) [address] [place] [address] Chloride [Moles/Vol] 103 mmol/L Normal 98-107 [facility] Comment on above: Performed By: #### 2 4321-2 #### HARLEEN QUINTANA ([id number]) [facility] ([facility]) [address] [place] [address] CO2 [Moles/Vol] 26 mmol/L Normal 21-[address] [facility] Comment on above: Performed By: #### 2 4321-2 #### HARLEEN QUINTANA ([id number]) [facility] ([facility]) [address] [place] [address] 59235 Creatinine [Mass/Vol] 0.70 mg/dL Normal 0.50-1.05 [facility] Comment on above: Performed By: #### 2 4321-2 #### HARLEEN QUINTANA ([id number]) [facility] ([facility]) [address] [place] [address] 45339 GFR/1.73 sq M.predicted MDRD (S/P/Bld) [Vol rate/Area] mL/min/{1.73_m2} Normal >60 [facility] Comment on above: Result Comment: Calc ulations of estimated GFR are performed using the 2020 CKD-EPI Study Refit equation without the race variable for the IDMS-Traceable creatinine methods. https://jasn.asnjournals.org/content//ASN.2020 775156 Performed By: #### 2 4321-2 #### HARLEEN QUINTANA ([id number]) [facility] ([facility]) [address] [place] [address] Glucose [Mass/Vol] 100 mg/dL High 74-99 [facility] Comment on above: Performed By: #### 2 4321-2 #### HARLEEN QUINTANA ([id number]) [facility] ([facility]) [address] [place] [address] 48719 Potassium [Moles/Vol] 3.8 mmol/L Normal 3.5-5.3 [facility] Comment on above: Performed By: #### 2 4321-2 #### HARLEEN QUINTANA ([id number]) [facility] ([facility]) [address] [place] [address] 84164 Sodium [Moles/Vol] 137 mmol/L Normal 136-145 [facility] Comment on above: Performed By: #### 2 4321-2 #### HARLEEN QUINTANA ([id number]) [facility] ([facility]) [address] [place] [address] 64715 Urea nitrogen [Mass/Vol] 9 mg/dL Normal 6-23 [facility] Comment on above: Performed By: #### 2 4321-2 #### HARLEEN QUINTANA ([id number]) [facility] ([facility]) [address] [place] [address] 03679 CBC panel Auto (Bld)on 11-21 Erythrocyte distribution width (RBC) [Ratio] 14.4 % 11.5 - 14.5 % [facility] Hematocrit (Bld) [Volume fraction] 37.5 % 36.0 - 46.0 % [facility] Hemoglobin (Bld) [Mass/Vol] 12.3 g/dL 12.0 - 16.0 g/dL [facility] Interpretation and review of laboratory results Abnormal [facility] MCH (RBC) [Entitic mass] 31.1 pg 26.0 - 34.0 pg [facility] MCHC (RBC) [Mass/Vol] 32.8 g/dL 32.0 - 36.0 g/dL [facility] MCV (RBC) [Entitic vol] 95 fL 80 - 100 fL [facility] Nucleated RBC/100 WBC (Bld) [Ratio] 0 % [facility] Platelets (Bld) [#/Vol] 228 10*3/uL [facility] RBC (Bld) [#/Vol] 3.96 10*6/uL [facility] WBC (Bld) [#/Vol] 8.8 10*3/uL [facility] Erythrocyte distribution width (RBC) [Ratio] 14.4 % Normal 11.5-14.5 [facility] Comment on above: Performed By: #### 5 8410-2 #### HARLEEN QUINTANA ([id number]) [facility] ([facility]) [address] [place] [address] 68580 Hematocrit (Bld) [Volume fraction] 37.5 % Normal 36.0-46.0 [facility] Comment on above: Performed By: #### 5 8410-2 #### HARLEEN QUINTANA ([id number]) [facility] ([facility]) [address] [place] [address] 20566 Hemoglobin (Bld) [Mass/Vol] 12.3 g/dL Normal 12.0-16.0 [facility] Comment on above: Performed By: #### 5 8410-2 #### HARLEEN QUINTANA ([id number]) [facility] ([facility]) [address] [place] [address] 79011 MCH (RBC) [Entitic mass] 31.1 pg Normal 26.0-34.0 [facility] Comment on above: Performed By: #### 5 8410-2 #### HARLEEN QUINTANA ([id number]) [facility] ([facility]) [address] [place] [address] 41500 MCHC (RBC) [Mass/Vol] 32.8 g/dL Normal 32.0-36.0 [facility] Comment on above: Performed By: #### 5 8410-2 #### HARLEEN QUINTANA ([id number]) [facility] ([facility]) [address] [place] [address] 11694 MCV (RBC) [Entitic vol] 95 fL Normal 80-100 U [facility] Comment on above: Performed By: #### 5 8410-2 #### HARLEEN QUINTANA ([id number]) [facility] ([facility]) [address] [place] [address] 45217 Nucleated RBC/100 WBC (Bld) [Ratio] 0.0 /100 WBCs Normal 0.0-0.0 [facility] Comment on above: Performed By: #### 5 8410-2 #### HARLEEN QUINTANA ([id number]) [facility] ([facility]) [address] [place] [address] 04567 Platelets (Bld) [#/Vol] 228 x10*3/uL Normal 150-450 [facility] Comment on above: Performed By: #### 5 8410-2 #### HARLEEN QUINTANA ([id number]) [facility] ([facility]) [address] [place] [address] 10423 RBC (Bld) [#/Vol] 3.96 x10*6/uL Low 4.00-5.20 [facility] Comment on above: Performed By: #### 5 8410-2 #### HARLEEN QUINTANA ([id number]) [facility] ([facility]) [address] [place] [address] 59522 WBC (Bld) [#/Vol] 8.8 x10*3/uL Normal 4.4-11.3 [facility] Comment on above: Performed By: #### 5 8410-2 #### HARLEEN QUINTANA ([id number]) [facility] ([facility]) [address] [place] [address] 06057 Magnesiumon 11-21-2024 Magnesium [Mass/Vol] 2.2 mg/dL 1.60 - 2.40 mg/dL [facility] Magnesium [Mass/Vol] 2.20 mg/dL Normal 1.60-2.40 [facility] Comment on above: Performed By: #### 1 9123-9 #### HARLEEN QUINTANA ([id number]) [facility] ([facility]) [address] [place] [address] 34020 Magnesium [Mass/Vol]on 11-21 Interpretation and review of laboratory results Normal [facility] No Panel Informationon 11-21 [facility] XR CHEST 1 VIEWon 11-21-2024 XR CHEST 1 VIEW Interpreted By: Jose Rogers, STUDY: XR CHEST 1 VIEW; 11/21/2024 10:25 am INDICATION: Signs/Symptoms:chest tube removal. COMPARISON: Chest radiograph 11/21/2024 ACCESSION NUMBER(S): [id number] ORDERING CLINICIAN: PARTHA ROCHA FINDINGS: AP radiograph of the chest was provided. A presumed FINANCIAL ACCOUNTING MANAGER shunt is seen overlying the right base of the neck, right chest wall, and right hemiabdomen with tip not in [id number]. Interval removal of left chest tube. CARDIOMEDIASTINAL [...] Jose Rogers 11/21/2024 10:33 AM Dictation workstation: [id number] [facility] XR CHEST 1 VIEW Interpreted By: Eloy José, STUDY: XR CHEST 1 VIEW; 11/21/2024 5:45 am INDICATION: Signs/Symptoms:s/p posterior mediastinal mass resection. COMPARISON: Portable chest, 20 November 2024 ACCESSION NUMBER(S): [id number] ORDERING CLINICIAN: ARIELLE SHAH TECHNIQUE: Single frontal view of the chest; Portable technique FINDINGS: Left chest tube unchanged in position Right sided central line is unchanged and well positioned No demonstrable pneumothorax or acute infiltrate on either side No large effusion or edema IMPRESSION: No interval change MACRO: None Signed by: Eloy José 11/21/2024 8:35 AM Dictation workstation: [id number] [facility] Comment on above: Order Comment: Tomor row AM XR Chest Single viewon 11-21 Interval removal of left chest tube. No evidence of acute cardiopulmonary process. MACRO: None Signed by: Jose Rogers 11/21/2024 10:33 AM Dictation workstation: [id number] [facility] Interpreted By: Jose Rogers, STUDY: XR CHEST 1 VIEW; 11/21/2024 10:25 am INDICATION: Signs/Symptoms:chest tube removal. COMPARISON: Chest radiograph 11/21/2024 ACCESSION NUMBER(S): [id number] ORDERING CLINICIAN: PARTHA ROCHA FINDINGS: AP radiograph of the chest was provided. A presumed FINANCIAL ACCOUNTING MANAGER shunt is seen overlying the right base of the neck, right chest wall, and right hemiabdomen with tip not in [id number]. Interval removal of left chest tube. CARDIOMEDIASTINAL [...] removal. COMPARISON: Chest radiograph 11/21/2024 ACCESSION NUMBER(S): [id number] ORDERING CLINICIAN: PARTHA ROCHA FINDINGS: AP radiograph of the chest was provided. A presumed FINANCIAL ACCOUNTING MANAGER shunt is seen overlying the right base of the neck, right chest wall, and right hemiabdomen with tip not in [id number]. Interval removal of left chest tube. CARDIOMEDIASTINAL [...] Jose Rogers 11/21/2024 10:33 AM Dictation workstation: [id number] [facility] Work Phone: Radiology Study observation (narrative) [facility] Work Phone: No interval change MACRO: None Signed by: Eloy José 11/21/2024 8:35 AM Dictation workstation: [id number] MMODAL Interpreted By: Eloy José, STUDY: XR CHEST 1 VIEW; 11/21/2024 5:45 am INDICATION: Signs/Symptoms:s/p posterior mediastinal mass resection. COMPARISON: Portable chest, 20 November 2024 ACCESSION NUMBER(S): [id number] ORDERING CLINICIAN: ARIELLE SHAH TECHNIQUE: Single frontal [...] Portable chest, 20 November 2024 ACCESSION NUMBER(S): [id number] ORDERING CLINICIAN: ARIELLE SHAH TECHNIQUE: Single frontal view of the chest; Portable technique FINDINGS: Left chest tube unchanged in position Right sided central line is unchanged and well positioned No demonstrable pneumothorax or acute infiltrate on either side No large effusion or edema IMPRESSION: No interval change MACRO: None Signed by: Eloy José 11/21/2024 8:35 AM Dictation workstation: [id number] [facility] Work Phone: Radiology Study observation (narrative) [facility] Work Phone: XR Chest Single viewOrdered By: Jose Rogers on 11-21-2024 [facility] Work Phone: XR Chest Single viewOrdered By: Eloy José on 11-21-2024 [facility] Work Phone: Blood type and Indirect anti body screen panel (Bld)on 11-20-2024 ABO group Nom (Bld) A [facility] Blood group antibody screen Ql Negative [facility] D Ag Ql (Bld) Positive [facility] ABO group Nom (Bld) A Normal [facility] Comment on above: Performed By: #### 3 4532-2 #### HARLEEN MAGANA RIO ESTEPHANIA ([id number]) [facility] ([facility]) [address] Blood group antibody screen Ql Negative [facility] Comment on above: Performed By: #### 3 4532-2 #### HARLEEN MAGANA TRUNG BEST ([id number]) [facility] ([facility]) [address] [place] [address] [place] D Ag Ql (Bld) Positive [facility] Comment on above: Performed By: #### 3 4532-2 #### HARLEEN MAGANA TRUNG BEST ([id number]) [facility] [employer] ([employer]) [address] [place] [address] [place] ECG 12 leadOrdered By: Maribel Rabago on 11-20-2024 Atrial Rate 85 BPM [facility] Work Phone: P [place] 52 degrees [facility] Work Phone: P Offset 188 [facility] Work Phone: P Onset 138 ms [facility] Work Phone: [place] Interval 166 ms [facility] Work Phone: Q Onset 221 ms [facility] Work Phone: QRS Count 14 beats [facility] Work Phone: QRS Duration 90 ms [facility] Work Phone: [phone] QT Interval 390 ms [facility] Work Phone: [phone] QTC Calculation(Bazett) 464 ms U [facility] Work Phone: QTC Fredericia 438 ms [facility] Work Phone: R [place] -4 degrees [facility] Work Phone: T [place] 29 degrees [facility] Work Phone: T Offset 416 ms [facility] Work Phone: Ventricular Rate 85 BPM [facility] Work Phone: [facility] Work Phone: ECG 12 leadon 11-20-2024 Normal sinus rhythm Low voltage QRS Borderline ECG When compared with ECG of 07-AUG-2024 06:33, QT has lengthened Confirmed by Jordon Rabago ([id number]) on 11/20/2024 10:52:14 PM MUSE Jordon Rabago MD - 11/20/2024 Normal sinus rhythm Low voltage QRS Borderline ECG When compared with ECG of 07-AUG-2024 06:33, QT has lengthened Confirmed by Jordon Rabago ([id number]) on 11/20/2024 10:52:14 PM [facility] Work Phone: ECG 12-LEADon 11-20-2024 ECG 12-LEAD Ventricular Rate 85 Atrial Rate 85 P-R Interval 166 QRS Duration 90 Q-T Interval 390 QTC Calculation(Bazett) 464 P [place] 52 R [place] -4 T [place] 29 QRS Count 14 Q Onset 221 P Onset 138 P Offset 188 T Offset 416 QTC Fredericia 438 Diagnosis Normal sinus rhythm Low voltage QRS Borderline ECG When compared with ECG of 07-AUG-2024 06:33, QT has lengthened Confirmed by Jordon Rabago ([id number]) on 11/20/2024 10:52:14 PM Normal [facility] Surgical pathology studyon 0 11-20-2024 Surgical pathology study Pathology report.total SEE COMMENT Surgical Pathology Case: [id number] Authorizing Provider: Harsha Ojeda MD Collected: 11/20/2024 0849 Ordering Location: [facility] Received: 11/20/2024 0926 OR Pathologist: Saritha Lebron [...] Sequential full-thickness sections Gross dissection performed at: [place] [address] LAB AP ASR DISCLAIMER One or more of the reagents used to perform assays on this specimen MAY have contained components considered to be analyte specific reagents (ASR's). ASR's have not been cleared or approved by the U.S. Food and Drug Administration. These assays were developed and their performance characteristics determined by the Department of Pathology at [facility]. The FDA does not require this [...] positive and negative controls which stained appropriately. 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 INDICATION: Signs/Symptoms:s/p mediastinal mass resection. COMPARISON: None. ACCESSION NUMBER(S): [id number] ORDERING CLINICIAN: ARIELLE SHAH FINDINGS: Chest tube [...] Raquel Sweeney 11/20/2024 11:04 AM Dictation workstation: [id number] [facility] Comment on above: Order Comment: On ar rival to PACU/SICU XR Chest Single viewon 11-20 1. As above MACRO: None. Signed by: Raquel Sweeney 11/20/2024 11:04 AM Dictation workstation: [id number] MMODAL Interpreted By: Raquel Sweeney, STUDY: Chest, single AP view. INDICATION: Signs/Symptoms:s/p mediastinal mass resection. COMPARISON: None. ACCESSION NUMBER(S): [id number] ORDERING CLINICIAN: ARIELLE SHAH FINDINGS: Chest tube [...] mediastinal mass resection. COMPARISON: None. ACCESSION NUMBER(S): [id number] ORDERING CLINICIAN: ARIELLE SHAH FINDINGS: Chest tube [...] Raquel Sweeney 11/20/2024 11:04 AM Dictation workstation: [id number] [facility] Work Phone: Radiology Study observation (narrative) [facility] Work Phone: XR Chest Single viewOrdered By: Raquel Sweeney on 11-20-2024 [facility] Work Phone: Blood type and Indirect anti body screen panel (Bld)on 11-02-2024 ABO group Nom (Bld) A Normal [facility] Comment on above: Performed By: #### 3 4532-2 #### HARLEEN MAGANA RIO ESTEPHANIA ([id number]) [facility] ([facility]) [address] Blood group antibody screen Ql Negative [facility] Comment on above: Performed By: #### 3 4532-2 #### HARLEEN [facility] ([id number]) [employer] [facility] ([facility]) [address] [place] [address] [place] D Ag Ql (Bld) Positive [facility] Comment on above: Result Comment: 2nd ABO test required. Order and Collect VERAB Performed By: #### 3 4532-2 #### HARLEEN HARTLAND ESTEPHANIA ([id number]) [facility] ([employer]) [address] [place] [address] [place] CBC panel Auto (Bld)on 11-02 Erythrocyte distribution width (RBC) [Ratio] 14.3 % Normal 11.5-14.5 [facility] Comment on above: Performed By: #### 5 8410-2 #### HARLEEN QUINTANA ([id number]) [facility] ([facility]) [address] [place] [address] 87024 Hematocrit (Bld) [Volume fraction] 42.8 % Normal 36.0-46.0 [facility] Comment on above: Performed By: #### 5 8410-2 #### HARLEEN QUINTANA ([id number]) [facility] ([facility]) [address] [place] [address] 47211 Hemoglobin (Bld) [Mass/Vol] 14.1 g/dL Normal 12.0-16.0 [facility] Comment on above: Performed By: #### 5 8410-2 #### HARLEEN QUINTANA ([id number]) [facility] ([facility]) [address] [place] [address] 90877 MCH (RBC) [Entitic mass] 31.3 pg Normal 26.0-34.0 [facility] Comment on above: Performed By: #### 5 8410-2 #### HARLEEN QUINTANA ([id number]) [facility] ([facility]) [address] [place] [address] 14530 MCHC (RBC) [Mass/Vol] 32.9 g/dL Normal 32.0-36.0 [facility] Comment on above: Performed By: #### 5 8410-2 #### HARLEEN QUINTANA ([id number]) [facility] ([facility]) [address] [place] [address] 51638 MCV (RBC) [Entitic vol] 95 fL Normal 80-100 U [facility] Comment on above: Performed By: #### 5 8410-2 #### HARLEEN QUINTANA ([id number]) [facility]) [address] [place] [address] 74822 Nucleated RBC/100 WBC (Bld) [Ratio] 0.0 /100 WBCs Normal 0.0-0.0 [facility] Comment on above: Performed By: #### 5 8410-2 #### HARLEEN QUINTANA ([id number]) [facility] ([facility]) [address] [place] [address] Platelets (Bld) [#/Vol] 246 x10*3/uL Normal 150-450 [facility] Comment on above: Performed By: #### 5 8410-2 #### HARLEEN QUINTANA ([id number]) [facility]) [address] [place] [address] RBC (Bld) [#/Vol] 4.51 x10*6/uL Normal 4.00-5.20 [facility] Comment on above: Performed By: #### 5 8410-2 #### HARLEEN QUINTANA ([id number]) [facility] ([facility]) [address] [place] [address] WBC (Bld) [#/Vol] 7.2 x10*3/uL Normal 4.4-11.3 [facility] Comment on above: Performed By: #### 5 8410-2 #### HARLEEN QUINTANA ([id number]) [facility]) [address] [place] [address] Coagulation tissue factor in ducedon 11-02-2024 PT Coag (PPP) [Time] 10.7 s Normal 9.8-12.4 [facility] Comment on above: Performed By: #### 5 902-2 #### HARLEEN QUINTANA ([id number]) [facility] ([facility]) [address] [place] [address] Comprehensive metabolic 2000 panelon 11-02-2024 Albumin BCP dye [Mass/Vol] 4.5 g/dL Normal 3.4-5.0 [facility] Comment on above: Performed By: #### 2 4323-8 #### HARLEEN QUINTANA ([id number]) [facility] ([facility]) [address] [place] [address] ALP [Catalytic activity/Vol] 49 U/L Normal 33-110 [facility] Comment on above: Performed By: #### 2 4323-8 #### HARLEEN QUINTANA ([id number]) [facility] ([facility]) [address] [place] [address] 54769 ALT With P-5'-P [Catalytic activity/Vol] 22 U/L Normal 7-45 [facility] Comment on above: Result Comment: [place] Rosa ents treated with Sulfasalazine may generate falsely decreased results for ALT. Performed By: #### 2 4323-8 #### HARLEEN QUINTANA ([id number]) [facility] ([facility]) [address] [place] [address] 20817 Anion gap [Moles/Vol] 11 mmol/L Normal 10-20 [facility] Comment on above: Performed By: #### 2 4323-8 #### HARLEEN QUINTANA ([id number]) [facility]) [address] [place] [address] 52951 AST With P-5'-P [Catalytic activity/Vol] 19 U/L Normal 9-39 [facility] Comment on above: Performed By: #### 2 4323-8 #### HARLEEN QUINTANA ([id number]) [facility]) [address] [place] [address] 86000 Bilirubin [Mass/Vol] 0.4 mg/dL Normal 0.0-1.2 [facility] Comment on above: Performed By: #### 2 4323-8 #### HARLEEN QUINTANA ([id number]) [facility]) [address] [place] [address] 79520 Calcium [Mass/Vol] 8.7 mg/dL Normal 8.6-10.3 [facility] Comment on above: Performed By: #### 2 4323-8 #### HARLEEN QUINTANA ([id number]) [facility]) [address] [place] [address] 15649 Chloride [Moles/Vol] 112 mmol/L High 98-107 [facility] Comment on above: Performed By: #### 2 4323-8 #### HARLEEN QUINTANA ([id number]) [facility] ([facility]) [address] [place] [address] CO2 [Moles/Vol] 25 mmol/L Normal 21-32 [facility] Comment on above: Performed By: #### 2 4323-8 #### HARLEEN QUINTANA ([id number]) [facility] ([facility]) [address] [place] [address] Creatinine [Mass/Vol] 0.79 mg/dL Normal 0.50-1.05 [facility] Comment on above: Performed By: #### 2 4323-8 #### HARLEEN QUINTANA ([id number]) [facility] ([facility]) [address] [place] [address] GFR/1.73 sq M.predicted MDRD (S/P/Bld) [Vol rate/Area] mL/min/{1.73_m2} Normal >60 [facility] Comment on above: Result Comment: Calc ulations of estimated GFR are performed using the 2020 CKD-EPI Study Refit equation without the race variable for the IDMS-Traceable creatinine methods. https://jasn.asnjournals.org/content/early/ASN.2020 559485 Performed By: #### 2 4323-8 #### HARLEEN QUINTANA ([id number]) [facility] ([facility]) [address] [place] [address] Glucose [Mass/Vol] 90 mg/dL Normal 74-99 [facility] Comment on above: Performed By: #### 2 4323-8 #### HARLEEN QUINTANA ([id number]) [facility] ([facility]) [address] [place] [address] Potassium [Moles/Vol] 4.3 mmol/L Normal 3.5-5.3 [facility] Comment on above: Performed By: #### 2 4323-8 #### HARLEEN QUINTANA ([id number]) [facility] ([facility]) [address] [place] [address] Protein [Mass/Vol] 6.6 g/dL Normal 6.4-8.2 [facility] Comment on above: Performed By: #### 2 4323-8 #### HARLEEN QUINTANA ([id number]) [facility] ([facility]) [address] [place] [address] Sodium [Moles/Vol] 144 mmol/L Normal 136-145 [facility] Comment on above: Performed By: #### 2 4323-8 #### HARLEEN QUINTANA ([id number]) [facility] ([facility]) [address] [place] [address] Urea nitrogen [Mass/Vol] 15 mg/dL Normal 6-23 [facility] Comment on above: Performed By: #### 2 4323-8 #### HARLEEN QUINTANA ([id number]) [facility] ([facility]) [address] [place] [address] 14579 PT Coag (PPP) [Time]on 11-02 INR Coag (PPP) [Relative time] 1.0 Normal 0.9-1.1 [facility] Comment on above: Performed By: #### 5 902-2 #### HARLEEN QUINTANA ([id number]) [facility] ([facility]) [address] [place] [address] CBC panel Auto (Bld)on 10-09 Erythrocyte distribution width (RBC) [Ratio] 13.6 % Normal 11.5-14.5 [facility] Comment on above: Performed By: #### 5 8410-2 #### ROCKY Greer ([id number]) [facility] ([facility]) [address] [place] [address] Hematocrit (Bld) [Volume fraction] 44.5 % Normal 36.0-46.0 [facility] Comment on above: Performed By: #### 5 8410-2 #### ROCKY Greer ([id number]) [facility] ([facility]) [address] [place] [address] Hemoglobin (Bld) [Mass/Vol] 14.1 g/dL Normal 12.0-16.0 [facility] Comment on above: Performed By: #### 5 8410-2 #### ROCKY Greer ([id number]) [facility] ([facility]) [address] [place] [address] 24217 MCH (RBC) [Entitic mass] 30.7 pg Normal 26.0-34.0 [facility] Comment on above: Performed By: #### 5 8410-2 #### ROCKY Greer ([id number]) [facility] ([facility]) [address] [place] [address] 05209 MCHC (RBC) [Mass/Vol] 31.7 g/dL Low 32.0-36.0 [facility] Comment on above: Performed By: #### 5 8410-2 #### ROCKY Greer ([id number]) [facility] ([facility]) [address] [place] [address] 01581 MCV (RBC) [Entitic vol] 97 fL Normal 80-100 U [facility] Comment on above: Performed By: #### 5 8410-2 #### ROCKY Greer ([id number]) [facility] ([facility]) [address] [place] [address] 15830 Nucleated RBC/100 WBC (Bld) [Ratio] 0.0 /100 WBCs Normal 0.0-0.0 [facility] Comment on above: Performed By: #### 5 8410-2 #### ROCKY Greer ([id number]) [facility] ([facility]) [address] [place] [address] 33742 Platelets (Bld) [#/Vol] 222 x10*3/uL Normal 150-450 [facility] Comment on above: Performed By: #### 5 8410-2 #### ROCKY Greer ([id number]) [facility] ([facility]) [address] [place] [address] RBC (Bld) [#/Vol] 4.59 x10*6/uL Normal 4.00-5.20 [facility] Comment on above: Performed By: #### 5 8410-2 #### ROCKY JEFFERSON L ([id number]) [facility] ([facility]) [address] [place] [address] WBC (Bld) [#/Vol] 7.5 x10*3/uL Normal 4.4-11.3 [facility] Comment on above: Performed By: #### 5 8410-2 #### ROCKY JEFFERSON L ([id number]) [facility] ([facility]) [address] [place] [address] CT GUIDED PERCUTANEOUS BIOPS Y MEDIASTINUMon 10-09-2024 CT GUIDED PERCUTANEOUS BIOPSY MEDIASTINUM Interpreted By: Cosme Stover and Beyersdorf Conner STUDY: CT GUIDED PERCUTANEOUS BIOPSY MEDIASTINUM; 10/09/2024 11:48 am INDICATION: Signs/Symptoms:L paravertebral mass, known melanoma. COMPARISON: PET-CT 09/26/2024 ACCESSION NUMBER(S): [id number] ORDERING CLINICIAN: ALANNA PENNINGTON TECHNIQUE: INTERVENTIONALIST(S): MD [...] as stated. This study was interpreted at [place], [place]. Signed by: Cosme Stover 10/10/2024 12:58 PM Dictation workstation: [id number] Normal [facility] Coagulation tissue factor in ducedon 10-09-2024 PT Coag (PPP) [Time] 10.7 s Normal 9.8-12.4 [facility] Comment on above: Performed By: #### 5 902-2 #### ROCKY Greer ([id number]) [facility] ([facility]) [address] [place] [address] 83095 PT Coag (PPP) [Time]on 10-09 INR Coag (PPP) [Relative time] 1.0 Normal 0.9-1.1 [facility] Comment on above: Performed By: #### 5 902-2 #### ROCKY Greer ([id number]) [facility] ([facility]) [address] [place] [address] 12121 Surgical pathology studyon 0 10-09-2024 Surgical pathology study Pathology report.total SEE COMMENT Surgical Pathology Case: [id number] Authorizing Provider: Alanna Pennington MD Collected: 10/09/2024 1150 Ordering Location: [facility] Received: 10/10/2024 0908 Center Pathologist: Jacqueline [...] is submitted in toto in two cassettes. [facility] AP ASR DISCLAIMER One or more of the reagents used to perform assays on this specimen MAY have contained components considered to be analyte specific reagents (ASR's). ASR's have not been cleared or approved by the U.S. Food and Drug Administration. These assays were developed and their performance characteristics determined by the Department of Pathology at [facility]. The FDA does not require this [...] and negative controls which stained appropriately. Normal [facility] MR BRAIN W AND WO IV CONTRAS Ton 09-26-2024 MR BRAIN W AND WO IV CONTRAST Interpreted By: Teri Man, STUDY: MR BRAIN W AND WO IV CONTRAST; 09/26/2024 1:19 pm INDICATION: Signs/Symptoms:melanom a. ,C43.59 Malignant melanoma of other part of trunk COMPARISON: None. ACCESSION NUMBER(S): [id number] ORDERING CLINICIAN: ALANNA PENNINGTON TECHNIQUE: Axial T2, [...] Teri Man 09/26/2024 3:25 PM Dictation workstation: [id number] [facility] MR Brain WO and W contrast I Von 09-26-2024 No demonstrated intracranial metastatic disease. No acute intracranial abnormality. Right ventriculostomy tube. Decreased ventricular size. MACRO: None Signed by: Teri Man 09/26/2024 3:25 PM Dictation workstation: [id number] [facility] Interpreted By: Teri Man, STUDY: MR BRAIN W AND WO IV CONTRAST; 09/26/2024 1:19 pm INDICATION: Signs/Symptoms:melanom a. ,C43.59 Malignant melanoma of other part of trunk COMPARISON: None. ACCESSION NUMBER(S): [id number] ORDERING CLINICIAN: ALANNA PENNINGTON TECHNIQUE: Axial T2, [...] part of trunk COMPARISON: None. ACCESSION NUMBER(S): [id number] ORDERING CLINICIAN: AALNNA PENNINGTON TECHNIQUE: Axial T2, FLAIR, DWI, gradient [...] Teri Man 09/26/2024 3:25 PM Dictation workstation: [id number] [facility] Work Phone: MR Brain WO and W contrast I VOrdered By: Teri Man on 09-26-2024 [facility] Work Phone: NM PET CT WHOLE BODYon 09-[address] WHOLE BODY Interpreted By: David Vasques and Kaur Arashdeep STUDY: NM PET CT WHOLE BODY; 09/26/2024 11:08 am INDICATION: Signs/Symptoms:staging melanoma. 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 COMPARISON: None. ACCESSION NUMBER(S): [id number] ORDERING CLINICIAN: ALANNA PENNINGTON TECHNIQUE: DIVISION OF [...] (PI) Subsequent Treatment Strategy (PS) CALIBRATION: Dose Phdrcsnpw-up-Cwmd Interval (mins): 87 min Mediastinal bloodpool SUV [...] Vigil MD. This study was interpreted at [place], [place]. Signed by: David Shah 09/26/2024 11:37 AM Dictation workstation: [id number] [facility] NM Whole body Bone Viewson 0 [...] Vigil MD. This study was interpreted at [place], [place]. Signed by: David Shah 09/26/2024 11:37 AM Dictation workstation: [id number] [facility] Interpreted By: David Harry and Kaur Arashdeep STUDY: NM PET CT WHOLE BODY; 09/26/2024 11:08 am INDICATION: Signs/Symptoms:staging melanoma. 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 COMPARISON: None. ACCESSION NUMBER(S): [id number] ORDERING CLINICIAN: ALANNA PENNINGTON TECHNIQUE: DIVISION OF [...] (PI) Subsequent Treatment Strategy (PS) CALIBRATION: Dose Wejhxqggs-rj-Gzzw Interval (mins): 87 min Mediastinal bloodpool SUV [...] dissection on 08/22/2024. COMPARISON: None. ACCESSION NUMBER(S): [id number] ORDERING CLINICIAN: ALANNA PENNINGTON TECHNIQUE: DIVISION OF [...] (PI) Subsequent Treatment Strategy (PS) CALIBRATION: Dose Xbtbuukzi-zm-Tywp Interval (mins): 87 min Mediastinal bloodpool SUV [...] Vigil MD. This study was interpreted at [facility], [place], [place]. Signed by: David Shah 09/26/2024 11:37 AM Dictation workstation: [id number] [facility] Work Phone: NM Whole body Bone ViewsOrde red By: David Shha on 09-26-2024 [facility] Work Phone: No Panel Informationon 09-26 Radiology Study observation (narrative) [facility] Work Phone: DERMPATH LAB- DERMATOPATHOLO GYon 08-07-2024 DERMPATH LAB- DERMATOPATHOLOGY Pathology report.total SEE COMMENT Dermatopathology Case: [id number] Authorizing Provider: Yanet Pacheco MD Collected: 08/07/2024 0956 Ordering Location: [facility] Received: 08/07/2024 1429 [place] Pathologist: Dwight Bell [...] Melanoma of back (Multi) C43.59 Specimen ID: [id number], [id number] Specimen Source: SKIN INCISIONAL BIOPSY Site/Location: WIDE LOCAL INCISION MIDBACK Collection Comments: SHORT STITCH SUPERIOR/ LONG STITCH LEFT Specimen ID: [id number], [id number] Specimen Source: LYMPH NODE EXCISION Site/Location: RIGHT [...] determined by the Department of Pathology at [facility]. The FDA does not require this [...] being o (more content not included)... Normal [facility] Comment on above: Order Comment: Pre-o p diagnosis: Melanoma of back (Multi) [C43.59] ECG 12-LEADon 08-07-2024 ECG 12-LEAD Ventricular Rate 66 Atrial Rate 66 P-R Interval 166 QRS Duration 82 Q-T Interval 380 QTC Calculation(Bazett) 398 P [place] 34 R [place] 44 T [place] 44 QRS Count 11 Q Onset 224 P Onset 141 P Offset 195 T Offset 414 QTC Fredericia 392 Diagnosis Normal sinus rhythm Normal ECG No previous ECGs available Confirmed by Bobby Aldana ([id number]) on 08/15/2024 8:23:58 AM Normal [facility] [place] LYMPHOSCINTIGRAMon 2024 NM LYMPHOSCINTIGRAM Interpreted By: Lane Aguilar, STUDY: NM LYMPHOSCINTIGRAM; 08/07/2024 8:28 am INDICATION: Signs/Symptoms:SLNB. COMPARISON: None. ACCESSION NUMBER(S): [id number] ORDERING CLINICIAN: YANET PACHECO TECHNIQUE: DIVISION OF [...] This study was analyzed and interpreted at [place], [place]. Signed by: Lane Guadalupe 08/07/2024 8:46 AM Dictation workstation: [id number] [facility] NM Lymphatic vessels Views W radionuclide intra lymphaticon 08-07-2024 Successful sentinel lymph node localization in the right axilla. This study was analyzed and interpreted at [place], [place]. Signed by: Lane Guadalupe 08/07/2024 8:46 AM Dictation workstation: [id number] [facility] Interpreted By: Lane Aguilar, STUDY: NM LYMPHOSCINTIGRAM; 08/07/2024 8:28 am INDICATION: Signs/Symptoms:SLNB. COMPARISON: None. ACCESSION NUMBER(S): [id number] ORDERING CLINICIAN: YANET PACHECO TECHNIQUE: DIVISION OF [...] am INDICATION: Signs/Symptoms:SLNB. COMPARISON: None. ACCESSION NUMBER(S): [id number] ORDERING CLINICIAN: YANET PACHECO TECHNIQUE: DIVISION OF [...] This study was analyzed and interpreted at [place], [place]. Signed by: Lane Guadalupe 08/07/2024 8:46 AM Dictation workstation: [id number] [facility] Work Phone: Radiology Study observation (narrative) [facility] Work Phone: NM Lymphatic vessels Views W radionuclide intra lymphaticOrdered By: Lane Guadalupe on 08-07-2024 [facility] Work Phone: Surgical pathology studyon 0 07-14-2024 Surgical pathology study Pathology report.total SEE COMMENT Dermatopathology Report Case: [id number] Authorizing Provider: Yanet Pacheco MD Collected: 07/14/2024 1246 Ordering Location: [facility] Received: 07/14/2024 1246 [facility] Pathologist: Ron Aragon MD Specimen: OUTSIDE BLOCK(S)/SLIDE(S), 5 SLIDES, [facility] , #[id number] (BX: 06/28/2024) Path report.final diagnosis SEE COMMENT 5 SLIDES, [facility] , #[id number] (BX: 06/28/2024) SKIN, RIGHT BACK, BIOPSY: MALIGNANT [...] A. OUTSIDE BLOCK(S)/SLIDE(S). Received for consultation from [facility] are five slides labeled #[id number] (BX: 06/28/2204) along with the corresponding pathology report. [facility] Comment on above: Order Comment: Mater ials Received: 5 SLIDES, [facility] , #[id number] (BX: 06/28/2024) IGP,APTIMA HPV,AGE GDLNon AGE GDLN ACOG TESTING Note . [facility] Comment on above: TESTS RESULT FLAG UN ITS REF RANGE LAB Clinician Provided Cytology Information Source.............Vagina No. of containers..01 ThinPrep Vial Age Algo ACOG Anabel... 01 FLAG LEGEND: L-Low Normal,H-High Normal,LL-Alert Low,HH-Alert High <-Panic Low,>-Panic High,A-Abnormal,AA-Critical Abnormal Performed at: 01 =G [address] [address] Sumaya Lorenzo MD, HPV APTIMA Negative Negative [facility] Comment on above: This nucleic acid am plification test detects fourteen high- risk HPV types (16,18,31,33,35,39,45,51,52,56,58,59,66,68) without differentiation. Performed at: = - [address] [id number] Family Consultant: Sumaya Lorenzo MD, Phone: [phone] Performed at: [address] [id number] Family Consultant: Sumaya Lorenzo MD, Phone: [phone] IGP, APTIMA HPV, RFX 16/18,45 Note . [facility] Comment on above: TESTS RESULT FLAG UN ITS REF RANGE LAB DIAGNOSIS: 02 NEGATIVE FOR INTRAEPITHELIAL LESION OR MALIGNANCY. THIS SPECIMEN WAS RESCREENED PART OF OUR PSYCHOLOGY INSTRUCTOR PROGRAM. Specimen adequacy: 02 Satisfactory for evaluation. Performed by: 02 Cate Shi, Regulatory Submissions Associate (ASCP) QC reviewed by: 02 Moni Araiza, Regulatory Submissions Associate (ASCP) . 02 Note: Note 02 The [...] High,A-Abnormal,AA-Critical Abnormal Performed at: 02 [facility] [address] [address] Sumaya Lorenzo MD, SPATUL[facility]AG[facility] Cytology Cervical or vaginal smear or scraping studyOrdered By: Jennifer Contreras on 06-09-2023 [facility] Alanine aminotransferase [En zymatic activity/volume] in Serum or PlasmaOrdered By: Damir Laughlin on 01-18-2023 ALT [Catalytic activity/Vol] 24 U/L 7-52 [facility] Albumin [Mass/volume] in Ser um or Plasma by Bromocresol green (BCG) dye binding methoOrdered By: Damir Laughlin on 01-18-2023 Albumin BCG dye [Mass/Vol] 4.3 g/dL 3.5-5.7 [facility] Alkaline phosphatase [Enzyma tic activity/volume] in Serum or PlasmaOrdered By: Damir Laughlin on 01-18-2023 ALP [Catalytic activity/Vol] 40 U/L 34-104 [facility] Aspartate aminotransferase [ Enzymatic activity/volume] in Serum or PlasmaOrdered By: Damir Laughlin on 01-18-2023 AST [Catalytic activity/Vol] 18 U/L 13-39 [facility] Basophils Auto (Bld) [#/Vol] Ordered By: Damir Laughlin on 01-18-2023 Basophils (Bld) [#/Vol] 0.1 10*3/uL 0.0-0.2 [facility] Basophils/100 WBC Auto (Bld) Ordered By: Damir Laughlin on 01-18-2023 Basophils/100 WBC (Bld) 1.0 % . [facility] Bilirubin.total [Mass/volume ] in Serum or PlasmaOrdered By: Damir Laughlin on 01-18-2023 Bilirubin [Mass/Vol] 0.5 mg/dL 0.3-1.0 [facility] Calcium [Mass/volume] in Ser um or PlasmaOrdered By: Damir Laughlin on 01-18-2023 Calcium [Mass/Vol] 9.3 mg/dL 8.6-10.3 [facility] Carbon dioxide, total [Moles /volume] in Serum or PlasmaOrdered By: Damir Laughlin on 01-18-2023 CO2 [Moles/Vol] 29.7 mmol/L 21.0-31.0 [facility] Chloride [Moles/volume] in S derrick or PlasmaOrdered By: Damir Laughlin on 01-18-2023 Chloride [Moles/Vol] 108 mmol/L 98-107 [facility] Complete Blood Count Auto Di ffon 01-18-2023 Basophils (Bld) [#/Vol] 0.1 10*3/uL Normal 0.0-0.2 [facility] Comment on above: Result Comment: PERF ORMED BY: [place] [address] PATHOLOGIST DISTRICT MANAGER [employer] SP WALTERS M.D. Performed By: #### C MP, CBC #### [address] Basophils/100 WBC (Bld) 1.0 % Normal . [facility] Comment on above: Performed By: #### C MP, CBC #### [address] Eosinophils (Bld) [#/Vol] 0.6 10*3/uL High 0.0-0.45 [facility] Comment on above: Performed By: #### C MP, CBC #### [address] Eosinophils/100 WBC (Bld) 8.3 % Normal . [facility] Comment on above: Performed By: #### C MP, CBC #### [address] Erythrocyte distribution width (RBC) [Ratio] 14.5 % Normal 11.9-15.3 [facility] Comment on above: Performed By: #### C MP, CBC #### [address] Hematocrit (Bld) [Volume fraction] 44.6 % Normal 34.0-46.4 [facility] Comment on above: Performed By: #### C MP, CBC #### [address] Hemoglobin (Bld) [Mass/Vol] 14.7 g/dL Normal 11.8-15.4 [facility] Comment on above: Performed By: #### C MP, CBC #### [address] Lymphocytes (Bld) [#/Vol] 2.5 10*3/uL Normal 1.00-4.8 [facility] Comment on above: Performed By: #### C MP, CBC #### [address] Lymphocytes/100 WBC (Bld) 36.0 % Normal . [facility] Comment on above: Performed By: #### C MP, CBC #### [address] MCH (RBC) [Entitic mass] 30.2 pg Normal 24.7-34.3 [facility] Comment on above: Performed By: #### C MP, CBC #### [address] MCV (RBC) [Entitic vol] 91.9 fL Normal 80-100 [facility] Comment on above: Performed By: #### C MP, CBC #### [address] Mean Corpuscular HGB Conc 32.9 g/dL Normal 32.0-35.0 [facility] Comment on above: Performed By: #### C MP, CBC #### [address] Monocytes (Bld) [#/Vol] 0.6 10*3/uL Normal 0.0-0.8 [facility] Comment on above: Performed By: #### C MP, CBC #### [address] Monocytes/100 WBC (Bld) 9.0 % Normal . [facility] Comment on above: Performed By: #### C MP, CBC #### [facility] [address] Neutrophils (Bld) [#/Vol] 3.1 10*3/uL Normal 1.8-7.7 [facility] Comment on above: Performed By: #### C MP, CBC #### [facility] [address] Neutrophils/100 WBC (Bld) 45.7 % Normal . [facility] Comment on above: Performed By: #### C MP, CBC #### [facility] [address] NRBC% 0.1 /100{WBC} Normal 0-0.5 [facility] Comment on above: Performed By: #### C MP, CBC #### [facility] [address] Platelet mean volume (Bld) [Entitic vol] 9.0 fL Normal 6.3-10.7 [facility] Comment on above: Performed By: #### C MP, CBC #### [facility] [address] Platelets (Bld) [#/Vol] 226 10*3/uL Normal 150-450 [facility] Comment on above: Performed By: #### C MP, CBC #### [facility] [address] RBC (Bld) [#/Vol] 4.86 10*6/uL Normal 3.60-5.00 [facility] Comment on above: Performed By: #### C MP, CBC #### [facility] [address] WBC (Bld) [#/Vol] 6.9 10*3/uL Normal 3.8-11.6 [facility] Comment on above: Performed By: #### C MP, CBC #### [facility] [address] Comprehensive Metabolic Pane yrn 01-18-2023 Albumin [Mass/Vol] 4.3 g/dL Normal 3.5-5.7 [facility] Comment on above: Performed By: #### C MP, CBC #### [facility] [address] Albumin/Globulin [Mass ratio] 1.8 {ratio} Normal [facility] Comment on above: Performed By: #### C MP, CBC #### [address] ALP [Catalytic activity/Vol] 40 U/L Normal 34-104 [facility] Comment on above: Result Comment: PERF ORMED BY: [place] [address] PATHOLOGIST DISTRICT MANAGER [employer] SP WALTERS M.D. Performed By: #### C MP, CBC #### [address] ALT [Catalytic activity/Vol] 24 U/L Normal 7-52 [facility] Comment on above: Performed By: #### C MP, CBC #### [address] Anion gap [Moles/Vol] 9.7 mmol/L Normal 6.0-15.0 [facility] Comment on above: Performed By: #### C MP, CBC #### [facility] [address] [place] [address] AST [Catalytic activity/Vol] 18 U/L Normal 13-39 [facility] Comment on above: Performed By: #### C MP, CBC #### [facility] [address] [place] [address] [place] Bilirubin [Mass/Vol] 0.5 mg/dL Normal 0.3-1.0 [facility] Comment on above: Performed By: #### C MP, CBC #### [address] Calcium [Mass/Vol] 9.3 mg/dL Normal 8.6-10.3 [facility] Comment on above: Performed By: #### C MP, CBC #### [facility] [address] [place] [address] [place] Chloride [Moles/Vol] 108 mmol/L High 98-107 [facility] Comment on above: Performed By: #### C MP, CBC #### [facility] [address] CO2 [Moles/Vol] 29.7 mmol/L Normal 21.0-31.0 [facility] Comment on above: Performed By: #### C MP, CBC #### [facility] [address] Creatinine [Mass/Vol] 0.89 mg/dL Normal 0.60-1.20 [facility] Comment on above: Performed By: #### C MP, CBC #### [facility] [address] GFR/1.73 sq M.predicted MDRD (S/P/Bld) [Vol rate/Area] mL/min/{1.73_m2} Normal [facility] Comment on above: Performed By: #### C MP, CBC #### [facility] [address] Globulin (S) [Mass/Vol] 2.4 g/dL Normal [facility] Comment on above: Performed By: #### C MP, CBC #### [facility] [address] [place] [address] Glucose [Mass/Vol] 85 mg/dL Normal 70-100 [facility] Comment on above: Result Comment: [facility] Glucose Reference Range is dependent on time and content of last meal. Glucose of more than 200 mg/dL in a nonstressed, ambulatory subject supports the diagnosis of Diabetes Mellitus. ADA recommended reference range Performed By: #### C MP, CBC #### [facility] [address] Potassium [Moles/Vol] 4.4 mmol/L Normal 3.5-5.1 [facility] Comment on above: Performed By: #### C MP, CBC #### [facility] [address] [place] [address] [place] Protein [Mass/Vol] 6.7 g/dL Normal 6.4-8.9 [facility] Comment on above: Performed By: #### C MP, CBC #### [facility] [address] Sodium [Moles/Vol] 143 mmol/L Normal 136-145 [facility] Comment on above: Performed By: #### C MP, CBC #### [facility] [address] [place] [address] [place] Urea nitrogen [Mass/Vol] 19 mg/dL Normal 7-25 [facility] Comment on above: Performed By: #### C MP, CBC #### [facility] [address] Creatinine [Mass/volume] in Serum or PlasmaOrdered By: Damir Laughlin on 01-18-2023 Creatinine [Mass/Vol] 0.89 mg/dL 0.60-1.20 [facility] Eosinophils Auto (Bld) [#/Vo l]Ordered By: Damir Laughlin on 01-18-2023 Eosinophils (Bld) [#/Vol] 0.6 10*3/uL 0.0-0.45 [facility] Eosinophils/100 WBC Auto (Bl d)Ordered By: Damir Laughlin on 01-18-2023 Eosinophils/100 WBC (Bld) 8.3 % . [facility] Erythrocyte distribution wid th Auto (RBC) [Ratio]Ordered By: Damir Laughlin on 01-18-2023 Erythrocyte distribution width (RBC) [Ratio] 14.5 % 11.9-15.3 [facility] Globulin Calc (S) [Mass/Vol] Ordered By: Damir Laughlin on 01-18-2023 Globulin (S) [Mass/Vol] 2.4 g/dL [facility] Glucose [Mass/volume] in Ser um or PlasmaOrdered By: Damir Laughlin on 01-18-2023 Glucose [Mass/Vol] 85 mg/dL 70-100 [facility] Comment on above: ADA recommended refe rence rangeRandom Glucose Reference Range is dependent on time and content of last meal. Glucose of more than 200 mg/dL in a nonstressed, ambulatory subject supports the diagnosis of Diabetes Mellitus. Hematocrit Auto (Bld) [Volum e fraction]Ordered By: Damir Laughlin on 01-18-2023 Hematocrit (Bld) [Volume fraction] 44.6 % 34.0-46.4 [facility] Hemoglobin [Mass/volume] in BloodOrdered By: Damir Laughlin on 01-18-2023 Hemoglobin (Bld) [Mass/Vol] 14.7 g/dL 11.8-15.4 [facility] Leukocytes [#/volume] correc nicki for nucleated erythrocytes in Blood by Automated counOrdered By: Damir Laughlin on 01-18-2023 WBC corrected for nucl RBC Auto (Bld) [#/Vol] 6.9 10*3/uL 3.8-11.6 [facility] Lymphocytes Auto (Bld) [#/Vo l]Ordered By: Damir Laughlin on 01-18-2023 Lymphocytes (Bld) [#/Vol] 2.5 10*3/uL 1.00-4.8 [facility] Lymphocytes/100 WBC Auto (Bl d)Ordered By: Damir Laughlin on 01-18-2023 Lymphocytes/100 WBC (Bld) 36.0 % . [facility] MCH Auto (RBC) [Entitic mass ]Ordered By: Damir Laughlin on 01-18-2023 MCH (RBC) [Entitic mass] 30.2 pg 24.7-34.3 [facility] MCHC Auto (RBC) [Mass/Vol]Or dered By: Damir Laughlin on 01-18-2023 MCHC (RBC) [Mass/Vol] 32.9 g/dL 32.0-35.0 [facility] MCV Auto (RBC) [Entitic vol] Ordered By: Damir Laughlin on 01-18-2023 MCV (RBC) [Entitic vol] 91.9 fL 80-100 [facility] Monocytes Auto (Bld) [#/Vol] Ordered By: Damir Laughlin on 01-18-2023 Monocytes (Bld) [#/Vol] 0.6 10*3/uL 0.0-0.8 [facility] Monocytes/100 WBC Auto (Bld) Ordered By: Damir Laughlin on 01-18-2023 Monocytes/100 WBC (Bld) 9.0 % . [facility] Neutrophils Auto (Bld) [#/Vo l]Ordered By: Damir Laughlin on 01-18-2023 Neutrophils (Bld) [#/Vol] 3.1 10*3/uL 1.8-7.7 [facility] Neutrophils/100 WBC Auto (Bl d)Ordered By: Damir Laughlin on 01-18-2023 Neutrophils/100 WBC (Bld) 45.7 % . [facility] No Panel InformationOrdered By: Damir Laughlin on 01-18-2023 Estimated GFR (CKD-EPI) > 60.0 mL/Min [facility] Pharmacy Creatinine Clearance (Chem N/A [facility] Nucleated erythrocytes [Pres ence] in Blood by Automated countOrdered By: Damir Laughlin on 01-18-2023 Nucleated RBC Auto Ql (Bld) 0.1 /100{WBC} 0-0.5 [facility] Platelet mean volume Auto (B ld) [Entitic vol]Ordered By: Damir Laughlin on 01-18-2023 Platelet mean volume (Bld) [Entitic vol] 9.0 fL 6.3-10.7 [facility] Platelets Auto (Bld) [#/Vol] Ordered By: Damir Laughlin on 01-18-2023 Platelets (Bld) [#/Vol] 226 10*3/uL 150-450 [facility] Potassium [Moles/volume] in Serum or PlasmaOrdered By: Damir Laughlin on 01-18-2023 Potassium [Moles/Vol] 4.4 mmol/L 3.5-5.1 [facility] Protein [Mass/volume] in Ser um or PlasmaOrdered By: Damir Laughlin on 01-18-2023 Protein [Mass/Vol] 6.7 g/dL 6.4-8.9 [facility] RBC Auto (Bld) [#/Vol]Ordere d By: Damir Laughlin on 01-18-2023 RBC (Bld) [#/Vol] 4.86 10*6/uL 3.60-5.00 [facility] Serum or plasma albumin/glob ulin mass ratioOrdered By: Damir Qian on 01-18-2023 Albumin/Globulin [Mass ratio] 1.8 {ratio} [facility] Serum or plasma anion gap de terminationOrdered By: Damirclaudine Laughlin on 01-18-2023 Anion gap [Moles/Vol] 9.7 mmol/L 6.0-15.0 [facility] Sodium [Moles/volume] in Ser um or PlasmaOrdered By: Damirclaudine Laughlin on 01-18-2023 Sodium [Moles/Vol] 143 mmol/L 136-145 [facility] Urea nitrogen [Mass/volume] in Serum or PlasmaOrdered By: Damirclaudine Laughlin on 01-18-2023 Urea nitrogen [Mass/Vol] 19 mg/dL 7-25 [facility] WBC Auto (Bld) [#/Vol]Ordere d By: Damir Qian on 01-18-2023 WBC (Bld) [#/Vol] 6.9 10*3/uL 3.8-11.6 [facility] Physician Referralon 023 Physician Referral [id number] 0CD:127 Normal [facility] Physician Referralon 023 Physician Referral [id number] 0CD:[id number] Normal [facility] PAP ACOG PANEL 2: 30 to 65on 05-08-2022 . . Normal [facility] Comment on above: Result Comment: Perf ormed at: WB Performed By: #### [id number] ####[facility] [address] [address]DrWilber Barragan Age Gdln ACOG Testing 30-65 [facility] Comment on above: Performed By: #### 4 [id number] ####[facility] [address] [place] [id number] Barragan DIAGNOSIS: Comment [facility] Comment on above: Result Comment: UNSA TISFACTORY FOR EVALUATION. Performed at: WB Performed By: #### 4 [id number] ####[facility] [address] [place] [id number]. Tahir Barragan HPV Aptima Negative Normal Negative [facility] Comment on above: Result Comment: This nucleic acid amplification test detects fourteen high-risk HPV types (16,18,31,33,35,39,45,51,52,56,58,59,66,68) without differentiation. Performed at: =G Performed By: #### [id number] ####[facility] [address] [place] [id number]. Tahir Barragan HPV Genotype Reflex Comment Normal [facility] Comment on above: Result Comment: Crit joseph not met, HPV Genotype not performed. Performed at: WB Performed By: #### 4 [id number] ####[facility] [address] [place], [place] [id number]. Tahir Barragan Methodology: Comment Normal [facility] Comment on above: Result Comment: This liquid based ThinPrep(R) pap test was screened with the use of an image guided system. Performed at: WB Performed By: #### 4 [id number] ####[facility] [address] [place], [place] [address]Dr. Tahir Barragan Note: Comment Normal [facility] Comment on above: Result Comment: The Pap smear is a screening test designed to aid in the detection of premalignant and malignant conditions of the uterine cervix. It is not a diagnostic procedure and should not be used as the sole means of detecting cervical cancer. Both false-positive and false-negative reports do occur. . Performed at: WB Performed By: #### 4 [id number] ####[facility] [address] [place] [id number]. Tahir Barragan Performed by: Comment Normal [facility] Comment on above: Result Comment: Fercho Gonzalez Regulatory Submissions Associate (ASCP) Performed at: WB Performed By: #### 4 [id number] ####[facility] [address] [place] [id number] Barragan QC reviewed by: Comment Normal [facility] Comment on above: Result Comment: Jesenia J Knox, Supervisory Regulatory Submissions Associate (ASCP) Performed at: WB Performed By: #### 4 [id number] ####[facility] [address] [place] [id number]. Tahir Yung Recommendation: Comment Normal [facility] Comment on above: Result Comment: Sugg est follow up as clinically appropriate. Performed at: WB Performed By: #### 4 [id number] ####[facility] [address] [place], [place] [address]Tn. Maricruzelder Barragan Specimen adequacy: Comment Normal [facility] Comment on above: Result Comment: Spec imen processed and examined but unsatisfactory for evaluation of epithelial abnormality because of insufficient cellularity. Performed at: WB Performed By: #### 4 [id number] ####[facility] [address] [place], [place] [address]Sc. Tahir Barragan MG MAMM SCREEN 3D MATTEO CADon 05-06-2022 MG MAMM SCREEN 3D MATTEO CAD Patient: SHAWNA GRIGSBY Exam Date: 05/06/2022 : 1980 Gender:F Ordering : DR DELGADO BINGHAM . Admission #: [id number] Family : Order #: [id number] CLICK HERE TO VIEW EXAM RADIOLOGY REPORT [...] breast cancer at age 58. LOCATION: [facility] BREAST COMPOSITION: Heterogeneously dense,which may obscure [...] M.D. on 05/06/2022 at 15:03 Normal [facility] BUNon 04-03-2022 Urea nitrogen [Mass/Vol] 17.0 mg/dL Normal 7.0-18.0 [facility] Comment on above: Performed By: #### C LINDA, LIPID, BUN, TSH, ELEC, LIVER #### [facility] [address] [place] [address] Dr. Tahir Barragan CBC AUTO DIFFon 04-03-2022 BASO # 0.1 103/ul Normal 0.0-0.1 [facility] Comment on above: Performed By: #### C BC #### [facility] [address] [place] [address] Dr. Tahir Barragan Basophils/100 WBC (Bld) 1.2 % Normal 0.2-2.0 [facility] Comment on above: Performed By: #### C BC #### [facility] [address] [place] [address] Dr. Tahir Barragan EO # 0.3 103/ul Normal 0.0-0.7 [facility] Comment on above: Performed By: #### C BC #### [facility] [address] [place] [address] Dr. Tahir Barragan Eosinophils/100 WBC (Bld) 4.8 % Normal 0.9-7.0 [facility] Comment on above: Performed By: #### C BC #### [facility] [address] [place] [address] Dr. Tahir Barragan Erythrocyte distribution width (RBC) [Ratio] 14.0 % Normal 11.0-15.0 [facility] Comment on above: Performed By: #### C BC #### [facility] [address] [place] [address] Dr. Tahir Barragan Hematocrit (Bld) [Volume fraction] 41.5 % Normal 36.0-48.0 [facility] Comment on above: Performed By: #### C BC #### [facility] [address] [place] [address] Dr. Tahir Barragan Hemoglobin (Bld) [Mass/Vol] 13.8 g/dL Normal 12.0-16.0 [facility] Comment on above: Performed By: #### C BC #### [facility] [address] [place] [address] Dr. Tahir Barragan IG # 0.04 10e3/ul Critically high 0.00-0.03 [facility] Comment on above: Performed By: #### C BC #### [facility] [address] [place] [address] Dr. Tahir Barragan IG % 0.7 % Critically high 0.0-0.5 [facility] Comment on above: Performed By: #### C BC #### [facility] [address] [place] [address] Dr. Tahir Barragan LYMPH # 2.1 103/ul Normal 1.2-3.8 [facility] Comment on above: Performed By: #### C BC #### [facility] [address] [place] [address] Dr. Tahir Barragan Lymphocytes/100 WBC (Bld) 34.1 % Normal 20.5-60.0 [facility] Comment on above: Performed By: #### C BC #### [facility] [address] [place] [address] Dr. Tahir Barragan MANUAL DIFF REQ NO Normal [facility] Comment on above: Performed By: #### C BC #### [facility] [address] [place] [address] Dr. Tahir Barragan MCH (RBC) [Entitic mass] 29.9 pg Normal 26.7-34.0 [facility] Comment on above: Performed By: #### C BC #### [facility] [address] [place] [address] Dr. Tahir Barragan MCHC (RBC) [Mass/Vol] 33.3 g/dL Normal 29.9-35.2 [facility] Comment on above: Performed By: #### C BC #### [facility] [address] [place] [address] Dr. Tahir Barragan MCV (RBC) [Entitic vol] 90.0 fL Normal 81.0-99.0 [facility] Comment on above: Performed By: #### C BC #### [facility] [address] [place] [address] Dr. Tahir Barragan MONO # 0.6 103/ul Normal 0.3-0.8 [facility] Comment on above: Performed By: #### C BC #### [facility] [address] [place] [address] Dr. Tahir Barragan Monocytes/100 WBC (Bld) 9.4 % Normal 1.7-12.0 [facility] Comment on above: Performed By: #### C BC #### [facility] [address] [place] [address] Dr. Tahir Barragan NEUT # 3.0 103/ul Normal 1.4-6.5 [facility] Comment on above: Performed By: #### C BC #### [facility] [address] [place] [address] Dr. Tahir Barragan Neutrophils/100 WBC (Bld) 49.8 % Normal 43.0-75.0 [facility] Comment on above: Performed By: #### C BC #### [facility] [address] [place] [address] Dr. Tahir Barragan Platelet mean volume (Bld) [Entitic vol] 10.6 fL Normal 9.5-13.5 [facility] Comment on above: Performed By: #### C BC #### [facility] [address] [place] [address] Dr. Tahir Barragan PLT 251 103/ul Normal 150-450 [facility] Comment on above: Performed By: #### C BC #### [facility] [address] [place] [address] Dr. Tahir Barragan RBC 4.61 106/ul Normal 4.20-5.40 [facility] Comment on above: Performed By: #### C BC #### [facility] [address] [place] [address] Dr. Tahir Barragan WBC 6.0 103/ul Normal 4.0-11.0 [facility] Comment on above: Performed By: #### C BC #### [facility] [address] [address] [address] Tahir Barragan CREATININEon 04-03-2022 Creatinine [Mass/Vol] 0.68 mg/dL Normal 0.55-1.02 [facility] Comment on above: Performed By: #### C LINDA, LIPID, BUN, TSH, ELEC, LIVER ####[facility] [address] [place] [address]DrWilber Barragan EGFR-AF GREENLANDIC >60 Normal >=60 [facility] Comment on above: Performed By: #### C LINDA, LIPID, BUN, TSH, ELEC, LIVER ####[facility] [address] [place] [address]DrWilber Barragan EGFR-NON AF GREENLANDIC >60 Normal >=60 [facility] Comment on above: Performed By: #### C LINDA, LIPID, BUN, TSH, ELEC, LIVER ####[facility] [address] [place] [address]Dr. Tahir Barragan ELECTROLYTESon 04-03-2022 Anion gap [Moles/Vol] 9.2 mmol/L Normal [facility] Comment on above: Performed By: #### C LINDA, LIPID, BUN, TSH, ELEC, LIVER #### [facility] [address] [address] [address] Tahir Barragan Chloride [Moles/Vol] 105 mmol/L Normal 98-107 [facility] Comment on above: Performed By: #### C LINDA, LIPID, BUN, TSH, ELEC, LIVER #### [facility] [address] [address] [address] Tahir Barragan CO2 [Moles/Vol] 29.7 mmol/L Normal 21.0-32.0 [facility] Comment on above: Performed By: #### C LINDA, LIPID, BUN, TSH, ELEC, LIVER #### [facility] [address] [address] [address] Tahir Barragan Potassium [Moles/Vol] 3.9 mmol/L Normal 3.5-5.1 [facility] Comment on above: Performed By: #### C LINDA, LIPID, BUN, TSH, ELEC, LIVER #### [facility] [address] [address] [address] Tahir Barragan Sodium [Moles/Vol] 140 mmol/L Normal 136-145 [facility] [place] [facility] Comment on above: Performed By: #### C LINDA, LIPID, BUN, TSH, ELEC, LIVER #### [facility] [address] [address] [address] Tahir Barragan GLYCOHEMOGLOBIN A1Con 2021 ADA RECOMMENDATION SEE BELOW Normal [facility] [place] [facility] Comment on above: Result Comment: ADA RECOMMENDED LIMIT 4.0 - 6.0 ADA THERAPEUTIC TARGET < 7.0 ACTION SUGGESTED > 7.0 Performed By: #### A 1C #### [facility] [address] [place] [address] Dr. Tahir Barragan Glucose [Mass/Vol] 108 mg/dL Normal [facility] [place] [facility] Comment on above: Performed By: #### A 1C #### [facility] [address] [place] [address] Dr. Tahir Barragan HbA1c (Bld) [Mass fraction] 5.4 % Normal 4.5-6.2 [facility] Comment on above: Performed By: #### A 1C #### [facility] [address] [place] [address] Dr. Tahir Barragan LIPID PROFILEon 04-03-2022 CHOL-HDL RATIO NORM SEE BELOW Normal [facility] Comment on above: Result Comment: 3.3 - 4.4 LOW RISK 4.4 - 7.1 AVERAGE RISK 7.1 - 11.0 MODERATE RISK >11.0 HIGH RISK Performed By: #### C LINDA, LIPID, BUN, TSH, ELEC, LIVER #### [facility] [address] [place] [address] Dr. Tahir Barragan Cholesterol [Mass/Vol] 177 mg/dL Normal <=200 [facility] Comment on above: Performed By: #### C LINDA, LIPID, BUN, TSH, ELEC, LIVER #### [facility] [address] [place] [address] Dr. Tahir Barragan Cholesterol in HDL [Mass/Vol] 69 mg/dL Critically high 40-60 [facility] Comment on above: Performed By: #### C LINDA, LIPID, BUN, TSH, ELEC, LIVER #### [facility] [address] [address] [address] Tahir Barragan Cholesterol in LDL [Mass/Vol] 100.0 mg/dL Normal [facility] Comment on above: Performed By: #### C LINDA, LIPID, BUN, TSH, ELEC, LIVER #### [facility] [address] [address] [address] Tahir Barragan Cholesterol.total/Génesis sterol in HDL [Mass ratio] 2.6 {ratio} Normal [facility] Comment on above: Performed By: #### C LINDA, LIPID, BUN, TSH, ELEC, LIVER #### [facility] [address] [address] [address] Tahir Barragan HDL NORMAL > or = 60 mg/dl - LO W CARDIOVASCULAR RISK <40 mg/dl - HIGH CARDIOVASCULAR RISK Normal [facility] Comment on above: Performed By: #### C LINDA, LIPID, BUN, TSH, ELEC, LIVER #### [facility] [address] [address] [address] Tahir Barragan LDL CALC NORMAL SEE BELOW Normal [facility] Comment on above: Result Comment: <100 mg/dl OPTIMAL 100 - 129 mg/dl NEAR OR ABOVE OPTIMAL 130 - 159 mg/dl BORDERLINE HIGH 160 - 189 mg/dl HIGH >190 mg/dl VERY HIGH Performed By: #### C LINDA, LIPID, BUN, TSH, ELEC, LIVER #### [facility] [address] [address] [address] Tahir Barragan Triglyceride [Mass/Vol] 40 mg/dL Normal <=150 T [facility] Comment on above: Performed By: #### C LINDA, LIPID, BUN, TSH, ELEC, LIVER #### [facility] [address] [address] [address] Tahir Barragan VLDL CALC 8.0 mg/dL Normal [facility] Comment on above: Performed By: #### C LINDA, LIPID, BUN, TSH, ELEC, LIVER #### [facility] [address] [place] [address] Dr. Tahir Barragan LIVER PROFILEon 04-03-2022 Albumin [Mass/Vol] 3.9 g/dL Normal 3.4-5.0 [facility] [place] [facility] Comment on above: Performed By: #### C LINDA, LIPID, BUN, TSH, ELEC, LIVER #### [facility] [address] [place] [address] Dr. Tahir Barragan Albumin/Globulin [Mass ratio] 1.1 {ratio} Normal [facility] Comment on above: Performed By: #### C LINDA, LIPID, BUN, TSH, ELEC, LIVER #### [facility] [address] [place] [address] Dr. Tahir Barragan ALP [Catalytic activity/Vol] 78 U/L Normal 46-116 [facility] Comment on above: Performed By: #### C LINDA, LIPID, BUN, TSH, ELEC, LIVER #### [facility] [address] [place] [address] Dr. Tahir Barragan ALT [Catalytic activity/Vol] 16 U/L Normal 14-59 [facility] Comment on above: Performed By: #### C LINDA, LIPID, BUN, TSH, ELEC, LIVER #### [facility] [address] [place] [address] Dr. Tahir Barragan AST [Catalytic activity/Vol] 9 U/L Critically low 15-37 [facility] Comment on above: Performed By: #### C LINDA, LIPID, BUN, TSH, ELEC, LIVER #### [facility] [address] [place] [address] Dr. Tahir Barragan BILI, CONJUGATED 0.1 mg/dL Normal 0.0-0.2 [facility] [place] Comment on above: Performed By: #### C LINDA, LIPID, BUN, TSH, ELEC, LIVER #### [facility] [address] [place] [address] Dr. Tahir Barragan Bilirubin [Mass/Vol] 0.4 mg/dL Normal 0.2-1.0 [facility] Comment on above: Performed By: #### C LINDA, LIPID, BUN, TSH, ELEC, LIVER #### [facility] [address] [address] [address] Tahir Barragan Globulin (S) [Mass/Vol] 3.5 g/dL Normal [facility] Comment on above: Performed By: #### C LINDA, LIPID, BUN, TSH, ELEC, LIVER #### [facility] [address] [address] [address] Tahir Barragan Protein [Mass/Vol] 7.4 g/dL Normal 6.4-8.2 [facility] Comment on above: Performed By: #### C LINDA, LIPID, BUN, TSH, ELEC, LIVER #### [facility] [address] [address] [address] Tahir Barragan SED RATE [facility] 2021 SED RATE 24 mm/hr Critically high <=20 [facility] Comment on above: Performed By: #### S EDR #### [facility] [address] [address] [address] Tahir Barragan TSHon 04-03-2022 TSH 0.848 uIU/mL Normal 0.358-3.[address] [facility] Comment on above: Performed By: #### C LINDA, LIPID, BUN, TSH, ELEC, LIVER #### [facility] [address] [address] [address] Tahir Barragan Activated partial thrombopla stin time (aPTT) in platelet poor plasma by coagulation aOrdered By: Damir Laughlin on 10-08-2021 aPTT Coag (PPP) [Time] 30.3 s 25.1-36.5 [facility] Automated epithelial cells c ount in urine sediment (number/area)Ordered By: Damir Laughlin on 10-08-2021 Epithelial cells Auto (Urine sed) [#/Area] None seen [HPF] [facility] Automated erythrocytes count in urine sediment (number/area)Ordered By: Damir Laughlin on 10-08-2021 RBC Auto (Urine sed) [#/Area] None seen [HPF] [facility] Automated leukocytes count i n urine sediment (number/area)Ordered By: Damir Laughlin on 10-08-2021 WBC Auto (Urine sed) [#/Area] None seen [HPF] [facility] Automated urine hyaline cast s count (number/volume)Ordered By: Damir Laughlin on 10-08-2021 Hyaline casts Auto (U) [#/Vol] None seen [LPF] [facility] Basophils Auto (Bld) [#/Vol] Ordered By: Damir Laughlin on 10-08-2021 Basophils (Bld) [#/Vol] 0.1 10*3/uL 0.0-0.2 [facility] Basophils/100 WBC Auto (Bld) Ordered By: Damir Laughlin on 10-08-2021 Basophils/100 WBC (Bld) 1.0 % [facility] Bilirubin Test strip Ql (U)O rdered By: Damir Laughlin on 10-08-2021 Bilirubin Ql (U) Negative Negative [facility] Blood hemoglobin measurement (mass/volume)Ordered By: Damir Laughlin on 10-08-2021 Hemoglobin (Bld) [Mass/Vol] 12.9 g/dL 11.8-15.4 [facility] Blood leukocytes automated c ount (number/volume)Ordered By: Damir Laughlin on 10-08-2021 WBC (Bld) [#/Vol] 7.1 10*3/uL 4.5-11.0 [facility] Body fluid albumin measureme nt (mass/volume)Ordered By: Monroe Whitaker on 10-08-2021 Albumin (Body fld) [Mass/Vol] 4.1 g/dL 3.2-5.5 [facility] Color Auto (U)Ordered By: Bebeto Laughlin on 10-08-2021 Color (U) Yellow Yellow [facility] Creatine kinase [Enzymatic a ctivity/volume] in Serum or PlasmaOrdered By: Monroe Whitaker on 10-08-2021 CK [Catalytic activity/Vol] 123 U/L 22-269 [facility] Creatinine and Glomerular fi ltration rate.predicted panel (S/P/Bld)Ordered By: Monroe Whitaker on 10-08-2021 Creatinine [Mass/Vol] 0.78 mg/dL 0.44-1.03 [facility] Eosinophils Auto (Bld) [#/Vo l]Ordered By: Damir Laughlin on 10-08-2021 Eosinophils (Bld) [#/Vol] 0.4 10*3/uL 0.0-0.45 [facility] Eosinophils/100 WBC Auto (Bl d)Ordered By: Damir Laughlin on 10-08-2021 Eosinophils/100 WBC (Bld) 5.1 % [facility] Erythrocyte distribution wid th Auto (RBC) [Ratio]Ordered By: Damir Laughlin on 10-08-2021 Erythrocyte distribution width (RBC) [Ratio] 15.0 % 11.9-15.3 [facility] Erythrocyte sedimentation ra te by Photometric methodOrdered By: Damir Laughlin on 10-08-2021 ESR Photometric method (Bld) [Velocity] 15 mm/hr 0-19 [facility] Estimated glomerular filtrat ion rate (GFR) non- AmericanOrdered By: Monroe Whitaker on 10-08-2021 GFR/1.73 sq M.predicted among non-blacks MDRD (S/P/Bld) [Vol rate/Area] > 60 mL/Min [facility] Globulin Calc (S) [Mass/Vol] Ordered By: Monroe Whitaker on 10-08-2021 Globulin (S) [Mass/Vol] 2.2 g/dL [facility] Glucose mean value [Mass/vol ume] in Blood Estimated from glycated hemoglobinOrdered By: Monroe Whitaker on 10-08-2021 Average glucose Estimated from glycated hemoglobin (Bld) [Mass/Vol] 108 mg/dL [facility] Hematocrit Auto (Bld) [Volum e fraction]Ordered By: Damir Laughlin on 10-08-2021 Hematocrit (Bld) [Volume fraction] 38.6 % 34.0-46.4 [facility] Hemoglobin A1c percentageOrd ered By: Monroe Whitaker on 10-08-2021 HbA1c (Bld) [Mass fraction] 5.4 % 4.3-5.6 [facility] Comment on above: Increased risk for d iabetes: 5.7 - 6.4 diabetes: >6.4 glycemic control for adults with diabetes: <7.0 Ketones Auto test strip (U) [Mass/Vol]Ordered By: Damir Laughlin on 10-08-2021 Ketones (U) [Mass/Vol] Negative Negative Fi [facility] - CoagulationOrde red By: Damir Laughlin on 10-08-2021 PT Coag (PPP) [Time] 11.7 s 9.0-12.9 [facility] - Hematology and Cell countsOrdered By: Damir Laughlin on 10-08-2021 Nucleated RBC/100 WBC (Bld) [Ratio] 0.0 % 0-0.5 [facility] Lymphocytes Auto (Bld) [#/Vo l]Ordered By: Damir Laughlin on 10-08-2021 Lymphocytes (Bld) [#/Vol] 2.2 10*3/uL 1.00-4.8 [facility] Lymphocytes/100 WBC Auto (Bl d)Ordered By: Damir Laughlin on 10-08-2021 Lymphocytes/100 WBC (Bld) 31.5 % [facility] MCH Auto (RBC) [Entitic mass ]Ordered By: Damir Laughlin on 10-08-2021 MCH (RBC) [Entitic mass] 30.2 pg 24.7-34.3 [facility] MCHC Auto (RBC) [Mass/Vol]Or dered By: Damir Laughlin on 10-08-2021 MCHC (RBC) [Mass/Vol] 33.3 g/dL 32.0-35.0 [facility] MCV Auto (RBC) [Entitic vol] Ordered By: Damir Laughlin on 10-08-2021 MCV (RBC) [Entitic vol] 90.7 fL 80-100 [facility] Monocytes Auto (Bld) [#/Vol] Ordered By: Damir Laughlin on 10-08-2021 Monocytes (Bld) [#/Vol] 0.5 10*3/uL 0.0-0.8 [facility] Monocytes/100 WBC Auto (Bld) Ordered By: Damir Laughlin on 10-08-2021 Monocytes/100 WBC (Bld) 7.5 % [facility] Neutrophils Auto (Bld) [#/Vo l]Ordered By: Damir Laughlin on 10-08-2021 Neutrophils (Bld) [#/Vol] 3.9 10*3/uL 1.8-7.7 [facility] Neutrophils/100 WBC Auto (Bl d)Ordered By: Damir Laughlin on 10-08-2021 Neutrophils/100 WBC (Bld) 54.9 % [facility] Nitrite Test strip Ql (U)Ord ered By: Damir Laughlin on 10-08-2021 Nitrite Ql (U) Negative Negative [facility] No Panel InformationOrdered By: Monroe Whitaker on 10-08-2021 Estimated GFR () > 60 mL/Min [facility] Comment on above: GFR estimated refere nce range: According to KDOQI guidelines, <60 ml/min/1.73m2 is sufficient to diagnose a patient with chronic kidney disease. Pharmacy Creatinine Clearance (Chem N/A [facility] Platelet mean volume Auto (B ld) [Entitic vol]Ordered By: Damir Laughlin on 10-08-2021 Platelet mean volume (Bld) [Entitic vol] 9.7 fL 6.3-10.7 [facility] Platelet poor plasma interna tional normalized ratio (INR) by coagulation assay (relatOrdered By: Damir Laughlin on 10-08-2021 INR Coag (PPP) [Relative time] 1.0 {INR} [facility] Comment on above: INR Therapeutic Rang e [...] 10-08-2021 Platelets (Bld) [#/Vol] 226 10*3/uL 150-450 [facility] Protein Auto test strip (U) [Mass/Vol]Ordered By: Damir Laughlin on 10-08-2021 Protein (U) [Mass/Vol] Negative [facility] Protein [Mass/volume] in Ser um or PlasmaOrdered By: Monroe Whitaker on 10-08-2021 Protein [Mass/Vol] 6.3 g/dL 6.1-7.9 [facility] RBC Auto (Bld) [#/Vol]Ordere d By: Damir Laughlin on 10-08-2021 RBC (Bld) [#/Vol] 4.25 10*6/uL 3.60-5.00 [facility] Serum or plasma C reactive p rotein measurement (mass/volume)Ordered By: Damir Laughlin on 10-08-2021 CRP [Mass/Vol] 0.5 mg/dL 0.0-1.0 [facility] Serum or plasma alanine rivera otransferase measurement without P-5'-P (enzymatic activiOrdered By: Monroe Whitaker on 10-08-2021 ALT No additional P-5'-P [Catalytic activity/Vol] 20 U/L 10-60 [facility] Serum or plasma albumin/glob ulin mass ratioOrdered By: Monroe Whitaker on 10-08-2021 Albumin/Globulin [Mass ratio] 1.9 {ratio} [facility] Serum or plasma alkaline marya sphatase measurement (enzymatic activity/volume)Ordered By: Monroe Whitaker on 10-08-2021 ALP [Catalytic activity/Vol] 48 U/L 32-92 [facility] Serum or plasma aspartate am inotransferase measurement (enzymatic activity/volume)Ordered By: Monroe Whitaker on 10-08-2021 AST [Catalytic activity/Vol] 17 U/L 10-42 [facility] Serum or plasma calcium marcy urement (mass/volume)Ordered By: Monroe Whitaker on 10-08-2021 Calcium [Mass/Vol] 9.2 mg/dL 8.2-10.2 [facility] Serum or plasma chloride fabiola surement (moles/volume)Ordered By: Monroe Whitaker on 10-08-2021 Chloride [Moles/Vol] 105 mmol/L 95-114 [facility] Serum or plasma glucose marcy urement (mass/volume)Ordered By: Monroe Whitaker on 10-08-2021 Glucose [Mass/Vol] 92 mg/dL 70-100 [facility] Comment on above: ADA recommended refe rence range Random Glucose Reference Range is dependent on time and content of last meal. Glucose of more than 200 mg/dL in a nonstressed, ambulatory subject supports the diagnosis of Diabetes Mellitus. Serum or plasma potassium me asurement (moles/volume)Ordered By: Monroe Whitaker on 10-08-2021 Potassium [Moles/Vol] 4.0 mmol/L 3.5-5.1 [facility] Serum or plasma sodium measu rement (moles/volume)Ordered By: Monroe Whitaker on 10-08-2021 Sodium [Moles/Vol] 138 mmol/L 136-146 [facility] Serum or plasma total biliru bin measurement (mass/volume)Ordered By: Monroe Whitaker on 10-08-2021 Bilirubin [Mass/Vol] 0.7 mg/dL 0.3-1.2 [facility] Serum or plasma total carbon dioxide measurement (moles/volume)Ordered By: Monroe Whitaker on 10-08-2021 CO2 [Moles/Vol] 22.1 mmol/L 22.0-30.0 [facility] Serum or plasma urea nitroge n measurement (mass/volume)Ordered By: Monroe Whitaker on 10-08-2021 Urea nitrogen [Mass/Vol] 15 mg/dL 9- [facility] Specific gravity Auto test s trip (U) [Rel density]Ordered By: Damir Laughlin on 10-08-2021 Specific gravity (U) [Rel density] 1.005 1.001-1.030 [facility] TSH DL <= 0.005 mIU/L QnOrde red By: Damir Laughlin on 10-08-2021 TSH Qn 0.65 m[IU]/L 0.45-5.33 [facility] Thyroxine (T4) free [Mass/vo lume] in Serum or PlasmaOrdered By: Damir Laughlin on 10-08-2021 Free T4 [Mass/Vol] 1.29 ng/dL 0.61-1.12 [facility] Urine bacteria detection by automated methodOrdered By: Damir Laughlin on 10-08-2021 Bacteria Auto Ql (U) None seen None Seen [facility] Urine clarity by refractomet ry automatedOrdered By: Damir Laughlin on 10-08-2021 Clarity Refractometry automated (U) Clear Clear [facility] Urine glucose measurement by automated test strip (mass/volume)Ordered By: Damir Laughlin on 10-08-2021 Glucose Auto test strip (U) [Mass/Vol] Normal mg/dL Normal [facility] Urine hemoglobin detection b y automated test stripOrdered By: Damir Laughlin on 10-08-2021 Hemoglobin Auto test strip Ql (U) Negative Negative [facility] Urine leukocyte esterase det ection by automated test stripOrdered By: Damir Laughlin on 10-08-2021 Leukocyte esterase Auto test strip Ql (U) Negative Negative [facility] Urobilinogen Auto test strip (U) [Mass/Vol]Ordered By: Damir Laughlin on 10-08-2021 Urobilinogen (U) [Mass/Vol] Normal mg/dL Normal [facility] pH Auto test strip (U)Ordere d By: Damir Laughlin on 10-08-2021 pH (U) 7.5 [pH] 5.0-9.0 [facility] Vital Signs Date Time Vital Sign Value Performing Clinician Facility 01-16-2025 09:41-0400 Diastolic blood pressure 112 mm[Hg] Monroe Whitaker JR Work Phone: [facility] 01-16-2025 09:41-0400 Heart rate 91 /min Monroe Whitaker JR Work Phone: [facility] 01-16-2025 09:41-0400 Systolic blood pressure 173 mm[Hg] Monroe Whitaker JR Work Phone: [facility] 01-16-2025 09:28-0400 Body height 153.67 cm Monroe Whitaker JR Work Phone: [facility] 01-16-2025 09:28-0400 Body mass index (BMI) [Ratio] 33.2 kg/m2 Monroe Whitaker JR Work Phone: [facility] 01-16-2025 09:28-0400 Body weight 78.47 kg Monroe Whitaker JR Work Phone: [facility] 12-08-2024 10:48-0400 Body height 153.7 cm Harsha Ojeda MD Work Phone: [facility] 12-08-2024 10:48-0400 Body mass index (BMI) [Ratio] 32.27 kg/m2 Harsha Ojeda MD Work Phone: 0(221)[phone] [place] [address] 12-08-2024 10:48-0400 Body temperature 96.8 [degF] Harsha Ojeda MD Work Phone: 5(559)[phone] [place] [address] 12-08-2024 10:48-0400 Body weight 76.2 kg Harsha Ojeda MD Work Phone: 7(357)[phone] [place] [address] 12-08-2024 10:48-0400 Diastolic blood pressure 96 mm[Hg] Harsha Ojeda MD Work Phone: 4(152)[phone] [place] [address] 12-08-2024 10:48-0400 Heart rate 101 /min Harsha Ojeda MD Work Phone: 5([phone] [place] [address] 12-08-2024 10:48-0400 SaO2% (BldA) [Mass fraction] 98 % Harsha Ojeda MD Work Phone: 4(573)[phone] [place] [address] 12-08-2024 10:48-0400 Systolic blood pressure 145 mm[Hg] Harsha Ojeda MD Work Phone: 7(014)[phone] [place] [address] 11-21-2024 11:00-0400 Diastolic blood pressure 61 mm[Hg] Harsha Ojeda MD Work Phone: [facility] 11-21-2024 11:00-0400 Heart rate 96 /min Harsha Ojeda MD Work Phone: 9([phone] [place] [address] 11-21-2024 11:00-0400 Respiratory rate 17 /min Harsha Ojeda MD Work Phone: 2([phone])[phone] [place] [address] 11-21-2024 11:00-0400 SaO2% (BldA) [Mass fraction] 94 % Harsha Ojeda MD Work Phone: 5(167)[phone] [place] [address] 11-21-2024 11:00-0400 Systolic blood pressure 103 mm[Hg] Harsha Ojeda MD Work Phone: [facility] 11-21-2024 10:00-0400 Body temperature 98.2 [degF] Harsha Ojeda MD Work Phone: [facility] 11-21-2024 08:00-0400 Body mass index (BMI) [Ratio] 30.9 kg/m2 Harsha Ojeda MD Work Phone: [facility] 11-21-2024 08:00-0400 Body weight 73 kg Harsha Ojeda MD Work Phone: [facility] 11-20-2024 11:00-0400 Body height 153.7 cm Harsha Ojeda MD Work Phone: [facility] 10-09-2024 12:30-0400 Diastolic blood pressure 69 mm[Hg] [address] 10-09-2024 12:30-0400 Heart rate 68 /min [address] 10-09-2024 12:30-0400 Respiratory rate 16 /min [address] 10-09-2024 12:30-0400 SaO2% (BldA) [Mass fraction] 98 % [address] 10-09-2024 12:30-0400 Systolic blood pressure 115 mm[Hg] [address] 10-09-2024 09:05-0400 Body temperature 98.6 [degF] [address] 09-06-2024 10:02-0400 Body height 154.7 cm Alanna Pennington MD Work Phone: [facility] 09-06-2024 10:02-0400 Body mass index (BMI) [Ratio] 31.97 kg/m2 Alanna Pennington MD Work Phone: [facility] 09-06-2024 10:02-0400 Body temperature 97 [degF] Alanna Pennington MD Work Phone: [facility] 09-06-2024 10:02-0400 Body weight 76.52 kg Alanna Pennington MD Work Phone: [facility] 09-06-2024 10:02-0400 Diastolic blood pressure 85 mm[Hg] Alanna Pennington MD Work Phone: [facility] 09-06-2024 10:02-0400 Heart rate 85 /min Alanna Pennington MD Work Phone: [facility] 09-06-2024 10:02-0400 Respiratory rate 16 /min Alanna Pennington MD Work Phone: [facility] 09-06-2024 10:02-0400 SaO2% (BldA) [Mass fraction] 96 % Alanna Pennington MD Work Phone: [facility] 09-06-2024 10:02-0400 Systolic blood pressure 135 mm[Hg] Alanna Pennington MD Work Phone: [facility] 08-07-2024 13:17-0400 Body temperature 97.2 [degF] Yanet Pacheco MD Work Phone: [facility] 08-07-2024 13:17-0400 Diastolic blood pressure 74 mm[Hg] Yanet Pacheco MD Work Phone: [facility] 08-07-2024 13:17-0400 Heart rate 70 /min Yanet Pacheco MD Work Phone: [facility] 08-07-2024 13:17-0400 Respiratory rate 16 /min Yanet Pacheco MD Work Phone: [facility] 08-07-2024 13:17-0400 SaO2% (BldA) [Mass fraction] 98 % Yanet Pacheco MD Work Phone: [facility] 08-07-2024 13:17-0400 Systolic blood pressure 146 mm[Hg] Yanet Pacheco MD Work Phone: [facility] 08-07-2024 06:37-0400 Body height 152.4 cm Yanet Pacheco MD Work Phone: [facility] 08-07-2024 06:37-0400 Body mass index (BMI) [Ratio] 31 kg/m2 Yanet Pacheco MD Work Phone: [facility] 08-07-2024 06:37-0400 Body weight 72 kg Yanet Pacheco MD Work Phone: [facility] 07-18-2024 11:21-0500 Body height 153.1 cm Yanet Pacheco MD Work Phone: [facility] 07-18-2024 11:21-0500 Body mass index (BMI) [Ratio] 31.91 kg/m2 Yanet Pacheco MD Work Phone: [facility] 07-18-2024 11:21-0500 Body temperature 97 [degF] Yanet Pacheco MD Work Phone: [facility] 07-18-2024 11:21-0500 Body weight 74.8 kg Yanet Pacheco MD Work Phone: [facility] 07-18-2024 11:21-0500 Diastolic blood pressure 80 mm[Hg] Yanet Pacheco MD Work Phone: [facility] 07-18-2024 11:21-0500 Heart rate 90 /min Yanet Pacheco MD Work Phone: [facility] 07-18-2024 11:21-0500 Respiratory rate 18 /min Yanet Pacheco MD Work Phone: [facility] 07-18-2024 11:21-0500 SaO2% (BldA) [Mass fraction] 97 % Yanet Pacheco MD Work Phone: [facility] 07-18-2024 11:21-0500 Systolic blood pressure 127 mm[Hg] Yanet Pacheco MD Work Phone: [facility] 06-13-2024 08:33-0500 Body mass index (BMI) [Ratio] 31.84 kg/m2 Talon Treva DO Work Phone: [facility] 06-13-2024 08:33-0500 Body weight 74.57 kg Talon Treva DO Work Phone: [facility] 06-13-2024 08:33-0500 Diastolic blood pressure 82 mm[Hg] Talon Treva DO Work Phone: [facility] 06-13-2024 08:33-0500 Systolic blood pressure 120 mm[Hg] Talon Treva DO Work Phone: [facility] Healthcare Encounters Encounter Date Encounter Type Care Provider Facility Start: 01-16-2025 End: 01-16-2025 ambulatory Monroe Whitaker JR Work Phone: [facility] Work Phone: Start: 01-16-2025 End: 01-16-2025 Patient encounter procedure Maria Child [employer] [facility] Work Phone: Start: 12-08-2024 End: 12-08-2024 Postop follow up visit related to original px Harsha Ojeda MD Work Phone: [facility] Comment on above: Neurofibroma of thor ax (Primary Dx) Start: 12-08-2024 End: 12-08-2024 Subsequent hospital visit by physician Kimberlee X-Ray 1 [facility] Comment on above: Mediastinal mass Start: 12-08-2024 End: 12-08-2024 ambulatory HARSHA OJEDA [facility] Start: 11-20-2024 End: 11-21-2024 Evaluation and management of inpatient Harsha Ojeda MD Work Phone: [facility] Comment on above: Neurofibroma of thor ax (Primary Dx); Acute postoperative pain Start: 11-19-2024 Evaluation and manag ement of inpatient HARSHA OJEDA [facility] Start: 11-02-2024 End: 11-02-2024 ambulatory [facility] Start: 10-23-2024 End: 10-23-2024 Office outpatient visit 40 minutes Alanna Pennington MD Work Phone: [facility] Comment on above: Melanoma of back (Mu lti) Start: 10-23-2024 End: 10-23-2024 ambulatory [facility] Start: 10-13-2024 End: 10-13-2024 ambulatory HARSHA [facility] Start: 10-09-2024 End: 10-09-2024 Subsequent hospital visit by physician Dede [address] 3 [facility] Comment on above: Melanoma of back (Mu lti) Start: 10-09-2024 End: 10-09-2024 ambulatory [facility] Start: 10-04-2024 End: 10-04-2024 Office outpatient visit 40 minutes Alanna Pennington MD Work Phone: [facility] Comment on above: Melanoma of back (Mu lti) (Primary Dx) Start: 10-04-2024 End: 10-04-2024 ambulatory [facility] Start: 09-29-2024 End: 09-29-2024 Office outpatient visit 40 minutes Alanna Pennington MD Work Phone: [facility] Comment on above: Melanoma of back (Mu lti) Start: 09-29-2024 End: 09-29-2024 ambulatory [facility] Start: 09-26-2024 End: 09-26-2024 Subsequent hospital visit by physician Dede [id number] [facility] Comment on above: Melanoma of back (Mu lti) Arrived Start: 09-26-2024 End: 09-26-2024 ambulatory [facility] Start: 09-06-2024 End: 09-06-2024 Office outpatient new 60 minutes Alanna Pennington MD Work Phone: [facility] Comment on above: Melanoma of back (Mu lti) Start: 09-06-2024 End: 09-07-2024 ambulatory ALANNA PENNINGTON [facility] Start: 08-29-2024 End: 08-29-2024 Postop follow up visit related to original px Yanet Pacheco MD Work Phone: [facility] Comment on above: Melanoma of back (Mu lti) (Primary Dx) Start: 08-29-2024 End: 08-29-2024 ambulatory YANET Almaguer LION [facility] Start: 08-07-2024 End: 08-07-2024 ambulatory [facility] Start: 08-07-2024 End: 08-07-2024 Subsequent hospital visit by physician Kimberlee Jensen 3 [facility] Comment on above: Arrived Melanoma of back (Mu lti) Start: 08-07-2024 End: 08-07-2024 Subsequent hospital visit by physician Yanet Pacheco MD Work Phone: [facility] [place] Comment on above: Melanoma of back (Mu lti) (Primary Dx) Start: 07-19-2024 ambulatory YANET PACHECO [facility] Start: 07-18-2024 End: 07-18-2024 Office outpatient new 45 minutes Yanet Pacheco MD Work Phone: [facility] Comment on above: Melanoma of back (Mu lti) (Primary Dx) Start: 07-18-2024 End: 07-18-2024 ambulatory YANET BAUTISTAEHN [facility] Start: 06-13-2024 End: 06-13-2024 Bamboo flowsheet [...] Start: 01-18-2023 End: 01-18-2023 ambulatory Monroe Whitaker Facility:[facility] Start: 01-18-2023 End: 01-18-2023 ambulatory JR Monroe Whitaker Work Phone: [facility] Work Phone: Start: 01-18-2023 End: 01-18-2023 Patient encounter procedure JR Monroe Whitaker Work Phone: [facility] [address] Work Phone: Start: 01-04-2023 ambulatory MONROE WHITAKER Facility :[facility] Start: 05-06-2022 End: 05-07-[address] DELGADO BINGHAM Facility:[facility] Start: 04-28-2022 End: 04-28-[address] DELGADO BINGHAM Facility:[facility] Start: 04-07-2022 Encounter for genera l adult medical examination without abnormal findings DR MONROE WHITAKER [facility] Start: 04-03-2022 End: 04-04-[address] MONROE WHITAKER Facility:[facility] Start: 04-03-2022 End: 04-04-2022 Encounter for general adult medical examination without abnormal findings DR MONROE WHITAKER Facility:[facility] Start: 12-09-2021 End: 12-10-2021 ambulatory NIKKI KENNEY Facility:[facility] Start: 10-08-2021 End: 10-08-2021 Patient encounter procedure MD Emmanuel Laughlin Work Phone: [facility] [address] Start: 09-30-2021 End: 09-30-2021 Patient encounter procedure MD Emmanuel Laughlin Work Phone: [facility]XRay [address] Procedures Date Procedure Procedure Detail Performing Clinician Start: 11-21-2024 Radiologic exam ches t single view Partha Rocha ULTRASOUND TECHNOLOGIST-PUBLIC IMPROVEMENT INSPECTOR Work Phone: Start: 11-21-2024 Radiologic exam ches t single view Arielle Shah ULTRASOUND TECHNOLOGIST-PUBLIC IMPROVEMENT INSPECTOR Work Phone: Start: 11-21-2024 Basic metabolic pane l calcium total Arielle Shah ULTRASOUND TECHNOLOGIST-PUBLIC IMPROVEMENT INSPECTOR Work Phone: Start: 11-20-2024 PULSE OXIMETRY, SPOT Ra kirsten Shah ULTRASOUND TECHNOLOGIST-PUBLIC IMPROVEMENT INSPECTOR Work Phone: Start: 11-20-2024 Ecg routine ecg w/le ast 12 lds trcg only w/o i&r Arielle Shah ULTRASOUND TECHNOLOGIST-PUBLIC IMPROVEMENT INSPECTOR Work Phone: Start: 11-20-2024 PULSE OXIMETRY, SPOT Ra kirsten Shah ULTRASOUND TECHNOLOGIST-PUBLIC IMPROVEMENT INSPECTOR Work Phone: Start: 11-20-2024 Radiologic exam ches t single view Arielle Shah ULTRASOUND TECHNOLOGIST-PUBLIC IMPROVEMENT INSPECTOR Work Phone: Start: 11-20-2024 PULSE OXIMETRY, CONTINUOUS [...] DTaP/Tdap/Td Vaccines (2 - Td or Tdap) [facility] Start: 2028 Zoster Vaccines (1 of 2) Zoster Vaccines (1 of 2) [facility] Start: 06-09-2028 Screening for malignant neoplasm of cervix [facility] Start: 11-22-2027 Diabetes mellitus screening Diabetes Screening [facility] Start: 06-13-2027 Screening for malignant neoplasm of cervix [facility] Start: 06-18-2025 End: 06-18-2025 Patient encounter procedure 06/18/2025 8:30 AM EST Office Visit [facility] [address] [place] [phone] Talon Tilley, DO [address] [place] [address] [facility] Start: 06-14-2025 Yearly Adult Physical Yearly Adult Physical [facility] Start: 05-31-2025 Screening for malignant neoplasm of breast Mammogram [facility] Start: 04-24-2025 End: 10-23-2025 Creatinine [Mass/volume] in Serum or Plasma Creatinine Lab Routine Melanoma of back (Multi) Expected: 04/24/2025 (Approximate), Expires: 10/23/2025 [facility] Service Area Work Phone: Comment on above: Expected: 04/24/2025 (Approximate), Expi res: 10/23/2025 Start: 04-24-2025 End: 10-23-2025 CT Chest and Abdomen and Pelvis W contrast IV CT chest abdomen pelvis w IV contrast Imaging Routine Melanoma of back (Multi) Expected: 04/24/2025, Expires: 10/23/2025 [facility] Work Phone: Comment on above: Expected: 04/24/2025, Expires: Start: 01-22-2025 Influenza vaccination [facility] Start: 12-08-2024 End: 12-08-2024 Patient encounter procedure 12/08/2024 11:30 AM EDT Office Visit [facility] [address] [phone] [place] [address] [place] [address] [facility] Start: 11-06-2024 End: 11-06-2024 Admission to same day surgery center 11/06/2024 7:05 AM EDT - 11/06/2024 9:55 AM EDT Surgery [facility] OR [address] [place] [address] [place] [address] [place] [address] Robotic assisted posteiror mediastinal mass resection - left chest [29035 (CPT )] [facility] Comment on above: Robotic assisted posteiror mediastinal m ass resection - left chest [00724 (CPT )] Start: 11-06-2024 Subsequent hospital visit by physician 11/06/2024 7:05 AM EDT Hospital Encounter [facility] OR [address] [place] [address] [place] [address] [place] [address] [facility] OR Start: 11-06-2024 End: 11-06-2024 Thoracoscopy w/exc mediastinal cyst tumor/mass EXCISION, TISSUE, MEDIASTINUM, ROBOT-ASSISTED Neurofibroma of thorax 11/06/2024 7:05 AM EDT [facility] Start: 11-01-2024 End: 11-01-2024 Patient encounter procedure 11/01/2024 9:00 AM EDT Office Visit [facility] [address] [place] [address] Maria Rice PA [address] [place] [address] [facility] Start: 10-23-2024 End: 10-23-2024 Telemedicine consultation with patient 10/23/2024 4:40 PM EDT Telemedicine [facility] [address] 2[address] [place] [phone] [place] [address] [place] [address] [facility] Start: 10-13-2024 End: 10-13-2024 Patient encounter procedure 10/13/2024 1:45 PM EDT Office Visit [facility] [address] [phone] [place] [address] [place] [address] [facility] Start: 10-04-2024 End: 10-04-2024 Telemedicine consultation with patient [facility] Start: 10-04-2024 End: 10-04-2025 Consult to Interventional Radiology Consult to Interventional Radiology Imaging STAT Melanoma of back (Multi) Expected: 10/04/2024, Expires: 10/04/2025 [facility] Service Area Work Phone: Comment on above: Expected: 10/04/2024, Expires: Start: 09-06-2024 End: 09-06-2025 MR Brain WO and W contrast IV MR brain w and wo IV contrast Imaging Routine Melanoma of back (Multi) Expected: 09/06/2024, Expires: 09/06/2025 [facility] Work Phone: Comment on above: Expected: 09/06/2024, Expires: Start: 09-06-2024 End: 09-06-2025 NM Whole body Bone Views NM PET CT whole body Imaging Routine Melanoma of back (Multi) Expected: 09/06/2024, Expires: 09/06/2025 [facility] Service Area Work Phone: Comment on above: Expected: 09/06/2024, Expires: Start: 08-07-2024 Subsequent hospital visit by physician 08/07/2024 Hospital Encounter [facility] [place] [address] [place] [phone] [place] [address] [address] [place] [address] [facility] Start: 07-18-2024 End: 07-18-2025 NM Lymphatic vessels Views W radionuclide intra lymphatic NM lymphoscintigram Imaging Routine Melanoma of back (Multi) Expected: 07/18/2024, Expires: 07/18/2025 [facility] Service Area Work Phone: Comment on above: Expected: 07/18/2024, Expires: Start: 06-13-2024 End: 06-13-2024 Patient encounter procedure 06/13/2024 8:30 AM EST Office Visit [facility] [address] [place] [address] Talon Tilley DO [address] [place] [address] Arrived [facility] Comment on above: Arrived Start: 01-23-2024 COVID-19 Vaccine () COVID-19 Vaccine () [facility] Start: 01-23-2024 COVID-19 Vaccine () COVID-19 Vaccine () [facility] Start: 01-23-2024 Influenza vaccination Influenza Vaccine (#1) [facility] Start: 05-06-2023 Screening for malignant neoplasm of breast Mammogram [facility] Start: 08-12-1999 Screening for malignant neoplasm of cervix HPV/Cotest [facility] Start: 1997 Hepatitis B Vaccines (1 of 3 - 19+ 3-dose series) Hepatitis B Vaccines (1 of 3 - 19+ 3-dose series) [facility] Start: 1996 Diabetes mellitus screening Diabetes Screening [facility] Start: 1996 Hepatitis C screening Hepatitis C Screening [facility] Start: 08-12-1979 MMR Vaccines (1 of 1 - Standard series) MMR Vaccines (1 of 1 - Standard series) [facility] Start: 02-11-1979 Examination of skin Derm Melanoma Skin Check [facility] Start: 1978 HIV screening HIV Screening [facility] Start: 1978 Lipid panel Lipid Panel [facility] Start: 1978 Screening for malignant neoplasm of colon [facility] Start: 1978 Skin Cancer Screening Skin Cancer Screening [facility] Start: 1978 Yearly Adult Physical Yearly Adult Physical [facility] Aldolase measurement [facility] Work Phone: aPTT.lupus sensitive (LA screen) [facility] Work Phone: aPTT.lupus sensitive W excess phospholipid actual/Normal (normalized LA confirm) [facility] Work Phone: aPTT.lupus sensitive/aPTT.lupus sensitive W excess phospholipid (screen to confirm ra [facility] Work Phone: End: 11-25-2024 Basic metabolic 2000 panel - Serum or Plasma Basic metabolic panel Lab Routine Morning draw (Lab) for 5 Occurrences starting 11/21/2024 until 11/25/2024, 1 completed [facility] Work Phone: Comment on above: Morning draw (Lab) for 5 Occurrences sta rting 11/21/2024 until 11/25/2024, 1 completed Bx/exc lymph node op en deep axillary node BIOPSY, LYMPH NODE, AXILLARY Melanoma of back (Multi) [facility] End: 11-25-2024 CBC panel - Blood by Automated count CBC Lab Routine Morning draw (Lab) for 5 Occurrences starting 11/21/2024 until 11/25/2024, 1 completed [facility] Work Phone: Comment on above: Morning draw (Lab) for 5 Occurrences sta rting 11/21/2024 until 11/25/2024, 1 completed End: 08-07-2024 Choriogonadotropin ( test) [Presence] in Urine POCT , urine Point of Care Testing Routine Once (Lab) for 1 Occurrences starting 08/07/2024 until 08/07/2024 [facility] Service Area Work Phone: Comment on above: Once (Lab) for 1 Occurrences starting until 08/07/2024 Chromatin Ab [Units/ volume] in Serum or Plasma [facility] Work Phone: Complement C3 [Mass/ volume] in Serum or Plasma [facility] Work Phone: Complement C4 [Mass/ volume] in Serum or Plasma [facility] Work Phone: End: 08-07-2024 Continuous Pulse oximetry, In Phase 1 Continuous Pulse oximetry, In Phase 1 Respiratory Care Routine Continuous until discontinued starting 08/07/2024 [facility] Service Area Work Phone: Comment on above: Continuous until discontinued starting 0 08/07/2024 End: 10-09-2024 CT Guidance for biopsy of Mediastinum [facility] Service Area Work Phone: Comment on above: Once for 1 Occurrences starting 10/10/19 until 10/09/2024 Dermatopathology- DERM LAB [place] top[facility]ology- DERM LAB Pathology and Cytology Routine Melanoma of back (Multi) Release Upon Ordering for 1 Occurrences starting 08/07/2024 [facility] Work Phone: Comment on above: Release Upon Ordering for 1 Occurrences starting 08/07/2024 dRVVT (LA screen) [facility] Work Phone: Electrocardiogram, 12-lead Elect rocardiogram, 12-lead ECG Routine 08/07/2024 9:36 AM EDT [facility] Work Phone: Excision tumor soft tis back/flank subq 3 cm/> EXCISION, LESION, BACK Melanoma of back (Multi) [facility] Hemolytic complement CH50 level [facility] Work Phone: Homogenous nuclear A b pattern [Titer] in Serum [facility] Work Phone: End: 11-20-2024 Incentive spirometry Incentive spirometry Respiratory Care Routine Once for 1 Occurrences starting 11/20/2024 until 11/20/2024 [facility] Work Phone: Comment on above: Once for 1 Occurrences starting 11/21/19 until 11/20/2024 Lupus anticoagulant [Interpretation] in Platelet poor plasma [facility] Work Phone: End: 11-25-2024 Magnesium [Mass/volume] in Serum or Plasma Magnesium Lab Routine Morning draw (Lab) for 5 Occurrences starting 11/21/2024 until 11/25/2024, 1 completed [facility] Work Phone: Comment on above: Morning draw (Lab) for 5 Occurrences sta rting 11/21/2024 until 11/25/2024, 1 completed Myoglobin [Mass/volu me] in Serum or Plasma [facility] Work Phone: Nuclear Ab [Titer] in Serum [facility] Work Phone: End: 11-20-2024 Prepare RBC: 2 Units Prepare RBC: 2 Units Blood Bank Routine Once for 1 Occurrences starting 11/20/2024 until 11/20/2024 [facility] Service Area Work Phone: Comment on above: Once for 1 Occurrences starting 11/21/19 until 11/20/2024 Pulse oximetry, spot Pulse oxime try, spot Respiratory Care Routine Every 4 hours until discontinued starting 11/20/2024, 7 completed [facility] Work Phone: Comment on above: Every 4 hours until discontinued startin g 11/20/2024, 7 completed Reagin Ab [Presence] in Serum by RPR [facility] Work Phone: Surgical pathology study Surgica l Pathology Exam Pathology and Cytology Routine Melanoma of back (Multi) Release Upon Ordering for 1 Occurrences starting 08/07/2024 [facility] Work Phone: Comment on above: Release Upon Ordering for 1 Occurrences starting 08/07/2024 End: 10-09-2024 Surgical pathology study Surgical Pathology Exam Pathology and Cytology Routine Once (Lab) for 1 Occurrences starting 10/09/2024 until 10/09/2024 [facility] Work Phone: Comment on above: Once (Lab) for 1 Occurrences starting until 10/09/2024 Surgical pathology study [facility] Service Area Work Phone: Comment on above: Release Upon Ordering for 1 Occurrences starting 11/20/2024, 1 completed THIN PREP TIS PAP AN D HR HPV DNA THIN PREP TIS PAP AND HR HPV DNA Pathology and Cytology Routine Well woman exam with routine gynecological exam Ordered: 06/13/2024 [facility] Work Phone: Comment on above: Ordered: 06/13/2024 Thrombin time [facility] Work Phone: Thyroglobulin Ab [Units/volume] in Serum or Plasma [facility] Work Phone: Thyroperoxidase Ab [Units/volume] in Serum or Plasma [facility] Work Phone: End: 12-08-2024 XR Chest 2 Views [facility] Service Area Work Phone: Comment on above: Once for 1 Occurrences starting 12/09/19 25 until 12/08/2024 End: 11-25-2024 XR Chest Single view XR chest 1 view Imaging Routine Daily for 5 Occurrences starting 11/21/2024 until 11/25/2024, 1 completed [facility] Work Phone: Comment on above: Daily for 5 Occurrences starting 025 until 11/25/2024, 1 completed Immunizations Immunization Date Immunization Notes Care Provider Kervin lam 03-27-2023 influenza virus vacc ine, unspecified formulation Talon [employer] SALAZAR Work Phone: [facility] Payers Date Payer Category Payer Self-pay [id number] 2021 Blue [employer] Blue Shield BCBS [id number] 2021 Blue Cross Blue [facility] [id number] 1978 Unknown [id number] 2.16.840.1.296989.3.579. 2.593 1978 Unknown [id number] 2.16.840.1.175796.3.579. 2.593 1978 Unknown [id number] 2.16.840.1.607123.3.579. 2.593 1978 Unknown [id number] 2.16.840.1.852466.3.579. 2.593 1978 Unknown [id number] 2.16.840.1.580733.3.579. 2.1259 1978 Unknown [id number] 2.16840.1.834353.3.579. 2.1259 1978 Unknown [id number] 2.16.840.1.258303.3.579. 2.124 1978 Unknown [id number] 2.16.840.1.178696.3.579. 2.124 1978 Unknown [id number] 2.16840.1.328449.3.579. 2.1245 1978 Unknown [id number] 2.16840.1.162509.3.579. 2.124 1978 Unknown [id number] 2.16.840.1.831480.3.579. 2.124 1978 Unknown [id number] 2.16.840.1.217213.3.579. 2.124 1978 Unknown [id number] 2.16.840.1.244429.3.579. 2.124 1978 Unknown [id number] 2.16.840.1.794673.3.579. 2.124 1978 Unknown [id number] 2.16.840.1.139721.3.579. 2.5 1978 Unknown [id number] 2.16.840.1.357394.3.579. 2.1244 1978 Unknown [id number] 2.16.840.1.993023.3.579. 2.1244 1978 Unknown [id number] 2.16.840.1.075000.3.579. 2.1245 1978 Unknown [id number] 2.16.840.1.807428.3.579. 2.1245 1978 Unknown [id number] 2.16.840.1.610236.3.579. 2.1245 1978 Unknown [id number] 2.16.840.1.315845.3.579. 2.1245 1978 Unknown [id number] 2.16.840.1.851270.3.579. 2.1245 1978 Unknown [id number] 2.16.840.1.477838.3.579. 2.1245 1978 Unknown [id number] 2.16.840.1.412328.3.579. 2.1245 1978 Unknown [id number] 2.16.840.1.453577.3.579. 2.1246 1959 Unknown [id number] 1959 Unknown [id number] Unknown [employer] BC/BS [id number] Unknown [id number] 2.16.840.1.196727.3.579. 2.531 Social History Date Type Detail [facility] Work Phone: Start: 1980 Sex Assigned At Female [facility] Start: 06-07-2023 End: 01-16-2025 Tobacco smoking status [...] Tobacco use and exposure Smokeless tobacco non-user [facility] Work Phone: Start: 07-08-2024 End: 11-02-2024 Exposure to SARS-CoV-2 (event) Not sure [facility] Start: 07-26-2024 Alcohol Comment depends on the week's plans [facility] Work Phone: Start: 08-19-2024 End: 09-29-2024 Exposure to SARS-CoV-2 (event) Unable to assess [facility] Has the [place], [employer], oil, or water company threatened to shut off services in your home in past 12Mo No [facility] Are you now , , , , never or living with a partner? [facility] Work Phone: How often to you hav e a drink containing alcohol? 2-3 time sa week [facility] Work Phone: Start: 07-07-2024 How hard is it for you to pay for the very basics like food, housing, medical care, and heating Not hard at all [facility] Work Phone: Do you feel stress - tense, restless, nervous, or anxious, or unable to sleep at night because your mind is troubled all the time - these days [OSQ] To some extent [facility] Work Phone: (I/We) worried wheth er (my/our) food would run out before (I/we) got money to buy more. Never true [facility] Work Phone: Start: 11-20-2024 End: 12-08-2024 Alcoholic beverage intake Ex-drinker (finding) [facility] Work Phone: Sex Female (finding) [facility] Goals Date Patient Goal Desired Activity /State Personal health goal Functional Status Date Assessment Result Facility 12-08-2024 Patient Health Quest ionnaire 2 item (PHQ-2) [Reported] [facility] Work Phone: 11-20-2024 Total score [AUDIT-C] 2 11/21/19 25 12:18 PM Melissa Costa RN [facility] Work Phone: 11-20-2024 Patient Health Quest ionnaire 2 item (PHQ-2) [Reported] [facility] Work Phone: 11-20-2024 [place] - suicide s everity rating scale screener - recent [C-SSRS] [facility] Work Phone: 09-06-2024 PHQ-9 quick depressi on assessment panel [Reported.PHQ] [facility] Work Phone: 09-06-2024 Total score [AUDIT-C] 3 09/07/19 25 10:14 AM Francheska Soares, CARLOS [facility] Work Phone: 09-06-2024 Humiliation, Afraid, Rape, and Kick questionnaire [HARK] [facility] Work Phone: 09-06-2024 Patient Health Quest ionnaire 2 item (PHQ-2) [Reported] [facility] Work Phone: 09-06-2024 [place] - suicide s everity rating scale screener - recent [C-SSRS] [facility] Work Phone: [facility] Work Phone: [facility] Work Phone: Clinical Notes 12-10-2021 to 12-08-2024 [...] a pmhx of HLD, neurofibromatosis, hydrocephalus with FINANCIAL ACCOUNTING MANAGER shunt, and melanoma of the back s/p [...] for surveillance. Harsha Ojeda MD Thoracic Surgeon [facility] Workerscale shooter [facility] Office phone: Pager: [phone] documented in this encounter [facility] Work Phone: 11-21-2024 Plan of care note [...] throughout the shift Outcome: Adequate for Discharge [facility] Work Phone: 11-21-2024 Miscellaneous Notes The clinical [...] meals Offer water/supplements/favorite foods Reassess MST if engraver optical frames not consulted Goal: Promote skin healing Outcome: Progressing Flowsheets (Taken 11/21/2024 0504) Promote skin healing: Assess skin/pad under line(s)/device(s) Ensure correct size (line/device) and apply per host/hostess ground instructions Protective dressings over bony prominences Rotate [...] at this time. Date: 11/20/2024 OR Location: [place] OR Name: Shawna Grigsby, : 1980, Age: 44 y.o., , Sex: female Preop Diagnosis: posterior mediastinal mass Postop Diagnosis: posterior mediastinal mass Procedures: Robotic assisted posterior mediastinal mass resection Intercostal nerve block Bronchoscopy Surgeons: Harsha Ojeda MD Resident/Fellow/Other Shell Plater: Surgeons and Role: * Tasha Farias PA-C - Assisting Anesthesia: General ASA: III Anesthesia Staff: Anesthesiologist: Joanna Hodges MD CHILD NUTRITION DIRECTOR: Rogelio Clifton APRN-CHRISTOPHER Estimated Blood Loss: 10mL [...] EXAM Harsha Ojeda MD 11/20/2024 0849 Staff: Inflated Pad Buffer: Felicity Ruggiero RN Scrub Person: Sherie Tanner; [...] the port sites. I left one 28 Japanese chest tubes posteriorly. Then the lung was reinflated without issue under visualization. All the ports are closed with 2-0 Vicryl and 3-0 Monocryl. The final counts were correct. Patient was allowed to be awaken from general anesthesia and brought to recovery area in stable condition. I was present for the entire duration of the procedure. Tasha Houdek is required at bedside as web assistant for robotic portion of the case including docking, instrumentation, de-docking, troubleshooting, dissection, and specimen retrieval. Since there is no qualified resident to assist at bedside, her role is critical to ensure the safety of the complex operation. Harsha Ojeda MD Thoracic Surgeon [facility] Workerscale shooter [facility] Office phone: Pager: [phone] ADULT SURGERY PRE-OPERATIVE INSTRUCTIONS You will receive notification one business day prior to your surgery to confirm your arrival time and any additional information between 2 P.M. - 5 P.M. It is important that you answer your phone and/or check your messages during this time. You may see in [employer] your surgery start time changes several times even up to the day before your procedure. Please disregard those times and only follow the time given by the river crossing supervisor who will be notifying you via phone [...] the hospital and check in at the [facility] Outpatient Desk as you enter the hospital directly in front of you. If you enter through the Main Entrance, take the elevator off the lobby on the right labeled A to the 2nd floor and check in at the [facility] Outpatient Surgery desk as you exit the [...] with you at time of discharge. The explosives truck driver of these transportation services is not [...] nurse when you arrive for surgery. Nail togolese must be removed off one finger of [...] themselves, a legal guardian or Power of Route Salesman must accompany them to the hospital. If this is not possible, please call [phone] to make additional arrangements. Please bring guardianship or legal Power of Route Salesman paperwork with you on the day of surgery. Wear comfortable, loose-fitting clothing. Do not bring any home medications with you to the hospital. If you have any questions or concerns, please call Pre-Admission Testing at or your Physician s office Dr. Harsha Ojeda [phone] documented in this encounter [facility] Work Phone: 11-21-2024 Nurse Note Patient and given AVS and reviewed. Patient and verbalized understanding. Reviewed post op care, pain management and new medication. All belongings sent with patient. [facility] 11-21-2024 Nurse Note Patient and given AVS and reviewed. Patient and verbalized understanding. Reviewed post op care, pain management and new medication. All belongings sent with patient. 1100- Pt arrived to sicu 4 connected to monitors. LAST SORTER Jacobo at bedside. documented in this encounter [facility] Work Phone: 11-21-2024 Hospital course Narrative Discharge Diagnosis Neurofibroma of thorax Issues Requiring Follow-Up S/p mediastinal mass resection Test Results Pending At Discharge Pending Labs Order Current Status Surgical Pathology Exam In process Hospital Course 44 yo female history of hydrocephalus status post FINANCIAL ACCOUNTING MANAGER shunt, neurofibromatosis, gastroesophageal reflux disease, depression and [...] Rate 85 BPM Atrial Rate 85 BPM OH Interval 166 ms QRS Duration 90 ms QT Interval 390 ms QTC Calculation(Bazett) 464 ms P [place] 52 degrees R [place] -4 degrees T [place] 29 degrees QRS Count 14 beats Q [...] removal. COMPARISON: Chest radiograph 11/21/2024 ACCESSION NUMBER(S): [id number] ORDERING CLINICIAN: PARTHA ROCHA FINDINGS: AP radiograph of the chest was provided. A presumed FINANCIAL ACCOUNTING MANAGER shunt is seen overlying the right base of the neck, right chest wall, and right hemiabdomen with tip not in [id number]. Interval removal of left chest tube. CARDIOMEDIASTINAL SILHOUETTE: The cardiomediastinal silhouette is persistently enlarged but stable in size and configuration. LUNGS: There is no consolidation, pleural effusion, or pneumothorax. ABDOMEN: No remarkable upper abdominal findings. BONES: No acute osseous changes. Interval removal of left chest tube. No evidence of acute cardiopulmonary process. MACRO: None Signed by: Jose Rogers 11/21/2024 10:33 AM Dictation workstation: [id number] XR chest 1 view Result Date: 11/21/2024 Interpreted By: Eloy José, STUDY: XR CHEST 1 VIEW; 11/21/2024 5:45 am INDICATION: Signs/Symptoms:s/p posterior mediastinal mass resection. COMPARISON: Portable chest, 20 November 2024 ACCESSION NUMBER(S): [id number] ORDERING CLINICIAN: ARIELLE SHAH TECHNIQUE: Single frontal view of the chest; Portable technique FINDINGS: Left chest tube unchanged in position Right sided central line is unchanged and well positioned No demonstrable pneumothorax or acute infiltrate on either side No large effusion or edema No interval change MACRO: None Signed by: Eloy Estefanía 11/21/2024 8:35 AM Dictation workstation: [id number] ECG 12 lead Result Date: 11/20/2024 Normal sinus rhythm Low voltage QRS Borderline ECG When compared with ECG of 07-AUG-2024 06:33, QT has lengthened Confirmed by Jordon Rabago ([id number]) on 11/20/2024 10:52:14 PM XR chest 1 view Result Date: 11/20/2024 Interpreted By: Raquel Sweeney, STUDY: Chest, single AP view. INDICATION: Signs/Symptoms:s/p mediastinal mass resection. COMPARISON: None. ACCESSION NUMBER(S): [id number] ORDERING CLINICIAN: ARIELLE SHAH FINDINGS: Chest tube [...] Raquel Sweeney 11/20/2024 11:04 AM Dictation workstation: [id number] Pertinent Physical Exam At Time of Discharge [...] Center 12/08/2024 11:30 AM Harsha Ojeda MD [id number] [place] Partha Rocha, ULTRASOUND TECHNOLOGIST-PUBLIC IMPROVEMENT INSPECTOR [1] acetaminophen, 650 mg, oral, q6h cholecalciferol, [...] oxyCODONE, oxyCODONE, oxygen documented in this encounter [facility] Work Phone: 11-21-2024 Hospital Discharge instructions MAC [...] or approved for treating a specific patient. [employer] and its affiliates disclaim any warranty or liability relating to this information or the use thereof. The use of this information is governed by the Terms of Use, available at https://www.[employer].com/en/ know/ilqdlhfu-hlekdjiainoxn-jiuve Copyright 2022 [employer]. and its affiliates and/or licensors. All rights reserved. The following attachments cannot be sent through Care Everywhere.Oxycodone, ADULT (Kiswahili)documented in this encounter [facility] Work Phone: 11-21-2024 History of Present illness Narrative [facility] Critical Care Medicine Date: 11/21/2024 Patient: Shawna Grigsby Date of : 1980 Admit Date: 11/20/2024 ===== No chief complaint on file. History of Present Illness: Shawna Grigsby is a 44 y.o. year old female patient with Past Medical History of neurofibromatosis, hydrocephalus with FINANCIAL ACCOUNTING MANAGER shunt, HLD, GERD, depression/anxiety, Stage IIC melanoma [...] Past Medical History of neurofibromatosis, hydrocephalus with FINANCIAL ACCOUNTING MANAGER shunt, HLD, GERD, depression/anxiety, Stage IIC melanoma [...] IIIc melanoma of the back Hydrocephalus s/p FINANCIAL ACCOUNTING MANAGER shunt HLD GERD Depression/anxiety Plan: ICU postoperatively Maintain left pleural chest tube to waterseal Tylenol, oxycodone, Dilaudid for pain control Perioperative Ancef for 2 doses, complete Continue home Cymbalta, estradiol, famciclovir, Pepcid, linaclotide, Singulair, pepcid, statin Regular diet Continue outpatient follow-up with [facility] Leaf Stripper: DVT Prophylaxis: Heparin subcutaneous GI Prophylaxis: home pepcid Bowel Regimen: PRN Diet: regular CVC: no [place]: none Johnson: no Restraints: no Dispo: ICU [...] Dr. Jefferson and CTS team Marisol Figueroa, ULTRASOUND TECHNOLOGIST-PUBLIC IMPROVEMENT INSPECTOR [1] Past Medical History: Diagnosis Date Arthritis [...] history on file. documented in this encounter [facility] Work Phone: 11-21-2024 Plan of care note [...] meals Offer water/supplements/favorite foods Reassess MST if engraver optical frames not consulted Goal: Promote skin healing Outcome: Progressing Flowsheets (Taken 11/21/2024 0504) Promote skin healing: Assess skin/pad under line(s)/device(s) Ensure correct size (line/device) and apply per host/hostess ground instructions Protective dressings over bony prominences Rotate device position/do not position patient on device Turn/reposition every 2 hours/use positioning/transfer devices [facility] 11-20-2024 Nurse Note 1100- Pt arrived to sicu 4 connected to monitors. LAST SORTER Jacobo at bedside. [facility] Work Phone: 11-20-2024 Consult note Formatting of th is note is different from the original. [facility] Critical Care Medicine Date: 11/20/2024 Patient: Shawna Grigsby Date of : 1980 Admit Date: 11/20/2024 ===== No chief complaint on file. History of Present Illness: Shawna Grigsby is a 44 y.o. year old female patient with Past Medical History of neurofibromatosis, hydrocephalus with FINANCIAL ACCOUNTING MANAGER shunt, HLD, GERD, depression/anxiety, Stage IIC melanoma [...] Past Medical History of neurofibromatosis, hydrocephalus with FINANCIAL ACCOUNTING MANAGER shunt, HLD, GERD, depression/anxiety, Stage IIC melanoma [...] IIIc melanoma of the back Hydrocephalus s/p FINANCIAL ACCOUNTING MANAGER shunt HLD GERD Depression/anxiety Plan: Admit to ICU postoperatively Maintain left pleural chest tube to waterseal Tylenol, oxycodone, Dilaudid for pain control Perioperative Ancef for 2 doses Continue home Cymbalta, estradiol, famciclovir, Pepcid, linaclotide, Singulair, pepcid, statin Clear liquid diet, advance as tolerated Continue outpatient follow-up with [facility] Leaf Stripper: DVT Prophylaxis: Heparin subcutaneous GI Prophylaxis: home [...] include completion of procedure time. Jacobo Vital, ULTRASOUND TECHNOLOGIST-PUBLIC IMPROVEMENT INSPECTOR Pulmonary & Critical Care Medicine [facility] [1] Past Medical History: Diagnosis Date Arthritis [...] 650 mg, oral, q4h PRN, Arielle Shah, ELEUTERIO-PUBLIC IMPROVEMENT INSPECTOR albuterol 2.5 mg /3 mL (0.083 %) [...] mg, 5 mg, oral, q4h PRN, MAC [place]le oxygen (O2) therapy, , inhalation, Continuous PRN [...] mg, 180 mg, oral, Daily, MAC Nicole [facility] Work Phone: 11-20-2024 Consult note Formatting of th is note is different from the original. [facility] Critical Care Medicine Date: 11/20/2024 Patient: Shawna Grigsby Date of : 1980 Admit Date: 11/20/2024 ===== No chief complaint on file. History of Present Illness: Shawna Grigsby is a 44 y.o. year old female patient with Past Medical History of neurofibromatosis, hydrocephalus with FINANCIAL ACCOUNTING MANAGER shunt, HLD, GERD, depression/anxiety, Stage IIC melanoma [...] Past Medical History of neurofibromatosis, hydrocephalus with FINANCIAL ACCOUNTING MANAGER shunt, HLD, GERD, depression/anxiety, Stage IIC melanoma [...] IIIc melanoma of the back Hydrocephalus s/p FINANCIAL ACCOUNTING MANAGER shunt HLD GERD Depression/anxiety Plan: Admit to ICU postoperatively Maintain left pleural chest tube to waterseal Tylenol, oxycodone, Dilaudid for pain control Perioperative Ancef for 2 doses Continue home Cymbalta, estradiol, famciclovir, Pepcid, linaclotide, Singulair, pepcid, statin Clear liquid diet, advance as tolerated Continue outpatient follow-up with [facility] Leaf Stripper: DVT Prophylaxis: Heparin subcutaneous GI Prophylaxis: home pepcid Bowel Regimen: PRN Diet: clear liquid, advance as tolerated CVC: no [place]: remove Johnson: no Restraints: no Dispo: ICU Critical Care Time: 35 minutes spent in preparing to see patient (I.e. review of medical records), evaluation of diagnostics (I.e. labs, imaging, etc.), documentation, discussing plan of care with patient/ family/ caregiver, and/ or coordination of care with multidisciplinary team. Time does not include completion of procedure time. Jacobo Vital, ULTRASOUND TECHNOLOGIST-PUBLIC IMPROVEMENT INSPECTOR Pulmonary & Critical Care Medicine [facility] [1] Past Medical History: Diagnosis Date Arthritis [...] Daily, MAC Nicole documented in this encounter [facility] Work Phone: 11-20-2024 Nurse Surgical operation note Dr. Hodges aware pt. Resting quietly but, when awakened to asked about her pain pt. States pain still [address] Hodges awake of amount of pain meds and OK with pt. Being discharged to SICU at this time. [facility] 11-20-2024 Surgery Surgical operation note Date: 11/20/2024 OR Location: [place] OR Name: Shawna Grigsby, : 1980, Age: 44 y.o., , Sex: female Preop Diagnosis: posterior mediastinal mass Postop Diagnosis: posterior mediastinal mass Procedures: Robotic assisted posterior mediastinal mass resection Intercostal nerve block Bronchoscopy Surgeons: Harsha Ojeda MD Resident/Fellow/Other Shell Plater: Surgeons and Role: * Tasha Farias PA-C - Assisting Anesthesia: General ASA: III Anesthesia Staff: Anesthesiologist: Joanna Hodges MD CHILD NUTRITION DIRECTOR: DANIELLE Vásquez Estimated Blood Loss: 10mL Intra-op [...] EXAM Harsha Ojeda MD 11/20/2024 0849 Staff: Inflated Pad Buffer: Felicity Ruggiero RN Scrub Person: Sherie Tanner; [...] the port sites. I left one 28 Japanese chest tubes posteriorly. Then the lung was reinflated without issue under visualization. All the ports are closed with 2-0 Vicryl and 3-0 Monocryl. The final counts were correct. Patient was allowed to be awaken from general anesthesia and brought to recovery area in stable condition. I was present for the entire duration of the procedure. Tasha Farias is required at bedside as web assistant for robotic portion of the case including docking, instrumentation, de-docking, troubleshooting, dissection, and specimen retrieval. Since there is no qualified resident to assist at bedside, her role is critical to ensure the safety of the complex operation. Harsha Ojeda MD Thoracic Surgeon [facility] [employer] Workerscale shooter [facility] Office phone: Pager: [phone] [facility] Work Phone: 11-20-2024 History and physical note Path showed neurofibroma. Offered her upfront minimal invasive surgical resection. Patient consented to proceed. Harsha Ojeda MD Thoracic Surgeon [facility] [employer] Workerscale shooter [facility] Office phone: HPI: Shawna Grigsby is a 44 y.o. female with a pmhx of HLD, neurofibromatosis, hydrocephalus with FINANCIAL ACCOUNTING MANAGER shunt, and melanoma of the back s/p [...] dyspnea on exertion. She denied history of CO or stroke. She has a personal history [...] HPI PSHx: Cholecystectomy, hysterectomy, skin lesion resections, FINANCIAL ACCOUNTING MANAGER shunt revisions. SHx: Never smoker, deny ETOH, or illicit drugs. 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 FMHx: Maternal grandmother has [...] This mass was biopsied. --Patient has known FINANCIAL ACCOUNTING MANAGER shunt across anterior right neck, anterior right [...] I will recommend upfront surgical resection. T [facility] Work Phone: 11-20-2024 History and physical note Path showed neurofibroma. Offered her upfront minimal invasive surgical resection. Patient consented to proceed. Harsha Ojeda MD Thoracic Surgeon [facility] Workerscale shooter [facility] Office phone: HPI: Shawna Grigsby is a 44 y.o. female with a pmhx of HLD, neurofibromatosis, hydrocephalus with FINANCIAL ACCOUNTING MANAGER shunt, and melanoma of the back s/p [...] dyspnea on exertion. She denied history of CO or stroke. She has a personal history [...] HPI PSHx: Cholecystectomy, hysterectomy, skin lesion resections, FINANCIAL ACCOUNTING MANAGER shunt revisions. SHx: Never smoker, deny ETOH, or illicit drugs. 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 FMHx: Maternal grandmother [...] This mass was biopsied. --Patient has known FINANCIAL ACCOUNTING MANAGER shunt across anterior right neck, anterior right [...] upfront surgical resection. documented in this encounter [facility] Work Phone: 10-26-2024 Instructions Formatting of th [...] only follow the time given by the river crossing supervisor who will be notifying you via phone [...] the hospital and check in at the [facility] Outpatient Desk as you enter the hospital directly in front of you. If you enter through the Main Entrance, take the elevator off the lobby on the right labeled A to the 2nd floor and check in at the [facility] Outpatient Surgery desk as you exit the [...] with you at time of discharge. The explosives truck driver of these transportation services is not [...] nurse when you arrive for surgery. Nail togolese must be removed off one finger of [...] themselves, a legal guardian or Power of Route Salesman must accompany them to the hospital. If this is not possible, please call [phone] to make additional arrangements. Please bring guardianship or legal Power of Route Salesman paperwork with you on the day of surgery. Wear comfortable, loose-fitting clothing. Do not bring any home medications with you to the hospital. If you have any questions or concerns, please call Pre-Admission Testing at or your Physician s office Dr. Harsha Ojeda [phone] [facility] 10-23-2024 History of Present illness Narrative Images from the original note were not included. CUTANEOUS ONCOLOGY: FOLLOW UP Diagnosis: Stage IIC melanoma ([id number]) Location: back Oncologic history (see initial consultation [...] clinical picture. Alanna Pennington MD Attending Physician [facility] [employer] Workerscale shooter [facility] [employer] documented in this encounter [facility] Work Phone: 10-09-2024 Hospital Discharge instructions Ada [...] questions related to your procedure: Please call [phone] between the hours of 7:00am-5:00pm Wednesday through Wednesday. Please call [phone] after 5:00pm and on weekends and holidays. In the event of an emergency call 911 or go to your nearest emergency room. documented in this encounter [facility] Work Phone: 10-09-2024 Evaluation note Interventional Radiology [...] been discussed with the patient and/or their sales service representative. All questions answered and they agree to proceed. [facility] Work Phone: 10-09-2024 Evaluation note Interventional Radiology [...] been discussed with the patient and/or their sales service representative. All questions answered and they agree to proceed. Reviewed and approved by KOREY BUTT on 10/09/24 at 11:50 AM. [facility] Work Phone: 10-09-2024 Miscellaneous Notes Interventional Radiology [...] been discussed with the patient and/or their sales service representative. All questions answered and they agree [...] been discussed with the patient and/or their sales service representative. All questions answered and they agree to proceed. Reviewed and approved by KOREY BUTT on 10/09/24 at 11:50 AM. documented in this encounter [facility] Work Phone: 10-04-2024 History of Present illness [...] clinical picture. Alanna Pennington MD Attending Physician [facility] [employer] Workerscale shooter [facility] [employer] documented in this encounter [facility] Work Phone: 09-29-2024 History of Present illness [...] clinical picture. Alanna Pennington MD Attending Physician [facility] [employer] [place] Workerscale shooter [facility] [employer] documented in this encounter [facility] Work Phone: 09-06-2024 History of Present illness Narrative Images from the original note were not included. INITIAL CONSULTATION: MELANOMA Referring Surgeon: Yanet Pacheco MD Melanoma type: superficial spreading Location of primary site: back Date of WLE and SLNB: 08/07/2024 Final pathology: [place] Depth- 4.3 mm Ulceration status- present Dermal mitotic rate: 1/mm2 Microsatellitosis: not present Lymphovascular invasion: no Neutropism/perineural invasion: no Margins: negative Plains lymph node status: 0/2 positive lymph nodes [...] q6 weeks (nivolumab can be extended to [id number]). . We discussed treatment route, efficacy, and possible MANNY. I would recommend pembrolizumab 200 mg [id number] x 1 year to start. I gave her patient information on this treatment. She will need baseline scans. MRI brain and PET. RTC post imaging. Shawna Grigsby and her partner understand the plan and have no further questions. she will contact us if there are any new concerns or change in clinical picture. Alanna Pennington MD Attending Physician [facility] [employer] [place] Workerscale shooter [facility] [employer] [facility] [1] Past Medical History: Diagnosis Date Arthritis in entire back Chronic headaches migraines Depression GERD (gastroesophageal reflux disease) Hydrocephalus has had shunt placed Hyperlipidemia Irritable bowel syndrome Melanoma (Multi) on back Wears glasses documented in this encounter [facility] Work Phone: 08-29-2024 History of Present illness [...] adjuvant therapy vs surveillance. Yanet Pacheco MD mold cutting machine operator Division of Surgical Oncology [phone] [email or web address] SUBJECTIVE Shawna Grigsby is a 44 y.o. [...] Melanoma of back (Multi) C43.59 Specimen ID: [id number], [id number] Specimen Source: SKIN INCISIONAL BIOPSY Site/Location: WIDE LOCAL INCISION MIDBACK Collection Comments: SHORT STITCH SUPERIOR/ LONG STITCH LEFT Specimen ID: [id number], [id number] Specimen Source: LYMPH NODE EXCISION Site/Location: RIGHT [...] determined by the Department of Pathology at [facility]. The FDA does not require this [...] EXCISION, RE-EXCISION - A SPECIMEN Procedure Excision Plains node(s) biopsy Specimen Laterality Midline TUMOR Tumor [...] of Lymph Nodes Examined 2 Number of [place] Nodes Examined 1 PATHOLOGIC STAGE CLASSIFICATION (pTNM, AJCC 8th Edition) pT Category pT4b pN Category pN0 ADDITIONAL FINDINGS Additional Findings Multifocal incidental melanocytic nevi and numerous incidental neurofibromas throughout the excision. Comment(s) Tumor block residual melanoma in situ present in blocks A19, A20, A22, and A24. documented in this encounter [facility] Work Phone: 08-07-2024 Miscellaneous Notes Excision Lesion Back, [place] Lymph Node Biopsy (R) Operative Note Date: 08/07/2024 OR Location: [place] OR Name: Shawna Grigsby, : 1980, Age: 43 y.o., , Sex: female Diagnosis Pre-op Diagnosis * Melanoma of back (Multi) [C43.59] Post-op Diagnosis * Melanoma of back (Multi) [C43.59] Procedures Excision Lesion Back 26720 - [place] EXCISION TUMOR SOFT TIS BACK/FLANK SUBQ 3 CM/> [place] Lymph Node Biopsy 51875 - [place] BX/EXC LYMPH NODE OPEN DEEP AXILLARY NODE Surgeons * Yanet Pacheco - Primary Resident/Fellow/Other Shell Plater: Surgeons and Role: * Sofia Baker PA-C - Assisting Staff: Market Research Executive: Inflated Pad Buffer: Nela Lucio Person: Reji Anesthesia Staff: Anesthesiologist: [...] DERMPATH LAB- DERMATOPATHOLOGY Yanet Pacheco MD 08/07/2024 1059 INDICATIONS FOR SURGERY Diagnosis: Primary cutaneous melanoma [...] lymph nodes: 2 The patient arrived at [facility] for the aforementioned procedure. Consent was [...] complex multilayer fashion using deep 2-0 Vicryl [id number]-[id number], interrupted 3-0 Vicryl deep dermals, and a [...] multilayer fashion using a deep 2-0 Vicryl [id number], interrupted deep 3-0 Vicryl, and a running subcuticular 4-0 Monocryl. The skin was dressed with Dermabond. The patient was awoken and returned to the PACU in anticipation of discharge home. I was present scrubbed and directed all operative decision-making. Please note that we will be billing for the BRUNO's web assistant as he/she was critical for successful completion [...] only follow the time given by the river crossing supervisor who will be notifying you via phone [...] the hospital and check in at the [facility] Outpatient Desk as you enter the hospital directly in front of you. If you enter through the Main Entrance, take the elevator off the lobby on the right labeled A to the 2nd floor and check in at the [facility] Outpatient Surgery desk as you exit the [...] with you at time of discharge. The explosives truck driver of these transportation services is not [...] nurse when you arrive for surgery. Nail togolese must be removed off one finger of [...] themselves, a legal guardian or Power of Route Salesman must accompany them to the hospital. If this is not possible, please call [phone] to make additional arrangements. Please bring guardianship or legal Power of Route Salesman paperwork with you on the day of surgery. Wear comfortable, loose-fitting clothing. Do not bring any home medications with you to the hospital. If you have any questions or concerns, please call Pre-Admission Testing at or your Physician s office Dr. Yanet Pacheco [phone] documented in this encounter [facility] Work Phone: 08-07-2024 Surgery Surgical operation note Excision Lesion Back, [place] Lymph Node Biopsy (R) Operative Note Date: 08/07/2024 OR Location: [place] OR Name: Shawna Grigsby, : 1980, Age: 43 y.o., , Sex: female Diagnosis Pre-op Diagnosis * Melanoma of back (Multi) [C43.59] Post-op Diagnosis * Melanoma of back (Multi) [C43.59] Procedures Excision Lesion Back - [place] EXCISION TUMOR SOFT TIS BACK/FLANK SUBQ 3 CM/> [place] Lymph Node Biopsy 355[address] - [place] BX/EXC LYMPH NODE OPEN DEEP AXILLARY NODE Surgeons * Yanet Pacheco - Primary Resident/Fellow/Other Shell Plater: Surgeons and Role: * Sofia Baker PA-C - Assisting Staff: Market Research Executive: Inflated Pad Buffer: Nela Lucio Person: Reji Anesthesia Staff: Anesthesiologist: [...] lymph nodes: 2 The patient arrived at [facility] for the aforementioned procedure. Consent was [...] complex multilayer fashion using deep 2-0 Vicryl [id number], interrupted 3-0 Vicryl deep dermals, and a [...] multilayer fashion using a deep 2-0 Vicryl [id number]-[id number], interrupted deep 3-0 Vicryl, and a running subcuticular 4-0 Monocryl. The skin was dressed with Dermabond. The patient was awoken and returned to the PACU in anticipation of discharge home. I was present scrubbed and directed all operative decision-making. Please note that we will be billing for the BRUNO's web assistant as he/she was critical for successful completion of the case including positioning of the body, retraction, suture management, and wound closure. There was no qualified resident available for the case. T [facility] Work Phone: 08-07-2024 Hospital Discharge instructions Yanet [...] of the following, please call Ernestine Clark ([phone]) or Dr. Pacheco's office ([phone]). Swelling under the incision like a golf ball or larger. Redness of the skin that is spreading away from the incision. Drainage from the incision. Fevers, chills, or any other concerning symptoms. Follow-up Call Heidy Horan at [phone] to arrange a postop visit in 2-3 [...] sent through Care Everywhere.General Anesthesia Discharge Instructions (Kiswahili)documented in this encounter [facility] Work Phone: 08-07-2024 Attending History and physical [...] We will look for OR time at [facility] in the coming weeks. I believe this will close primarily with a 2 cm margin. Tumor board discussion is pending I spent 60 minutes in the professional and overall care of this patient. Yanet Pacheco MD mold cutting machine operator Division of Surgical Oncology [phone] [email or web address] History Of Present Illness Referring provider: Jimmy [...] Results FINAL DIAGNOSIS 5 SLIDES, [facility] , #[id number] (BX: 06/28/2024) SKIN, RIGHT BACK, BIOPSY: MALIGNANT [...] (pTNM, AJCC 8th Edition) pT Category pT4b [facility] Work Phone: 08-07-2024 History and physical note [...] We will look for OR time at [place] in the coming weeks. I believe this will close primarily with a 2 cm margin. Tumor board discussion is pending I spent 60 minutes in the professional and overall care of this patient. Yanet Pacheco MD mold cutting machine operator Division of Surgical Oncology [phone] [email or web address] History Of Present Illness Referring provider: Jimmy [...] Results FINAL DIAGNOSIS 5 SLIDES, [facility] , #[id number] (BX: 06/28/2024) SKIN, RIGHT BACK, BIOPSY: MALIGNANT [...] pT Category pT4b documented in this encounter [facility] Work Phone: 07-26-2024 Instructions Formatting of th is note is different from the original. ADULT SURGERY PRE-OPERATIVE INSTRUCTIONS You will receive notification one business day prior to your surgery to confirm your arrival time and any additional information between 2 P.M. - 5 P.M. It is important that you answer your phone and/or check your messages during this time. You may see in [employer] your surgery start time changes several times even up to the day before your procedure. Please disregard those times and only follow the time given by the river crossing supervisor who will be notifying you via phone [...] the hospital and check in at the [facility] Outpatient Desk as you enter the hospital directly in front of you. If you enter through the Main Entrance, take the elevator off the lobby on the right labeled A to the 2nd floor and check in at the [facility] Outpatient Surgery desk as you exit the [...] with you at time of discharge. The explosives truck driver of these transportation services is not [...] nurse when you arrive for surgery. Nail togolese must be removed off one finger of [...] themselves, a legal guardian or Power of Route Salesman must accompany them to the hospital. If this is not possible, please call [phone] to make additional arrangements. Please bring guardianship or legal Power of Route Salesman paperwork with you on the day of surgery. Wear comfortable, loose-fitting clothing. Do not bring any home medications with you to the hospital. If you have any questions or concerns, please call Pre-Admission Testing at or your Physician s office Dr. Yanet Pacheco [phone] [facility] 07-18-2024 History of Present illness Narrative Assessment [...] We will look for OR time at [place] in the coming weeks. I believe this will close primarily with a 2 cm margin. Tumor board discussion is pending I spent 60 minutes in the professional and overall care of this patient. Yanet Pacheco MD mold cutting machine operator Division of Surgical Oncology [phone] [email or web address] History Of Present Illness Referring provider: [...] Results FINAL DIAGNOSIS 5 SLIDES, [facility] , #[id number] (BX: 06/28/2024) SKIN, RIGHT BACK, BIOPSY: MALIGNANT [...] pT Category pT4b documented in this encounter [facility] Work Phone: 06-13-2024 History of Present illness [...] nursing note reviewed. Exam conducted with a blood bank order control clerk present. Vitals: Estimated body mass index is [...] Talon Tilley DO documented in this encounter [facility] 12-10-2021 Note EXAMINATION: CT HEAD WO [...] by: ROGELIO VAZQUEZ Date: 2021-12-10 07:26 [facility] Evaluation note No assessment inform ation available [facility] Work Phone: Evaluation note Diagnosis Well woman exam with routine gynecological exam Routine gynecological examination documented in this encounter [facility] HealthcareEvaluation [facility]* Diagnosis Melanoma of back (Multi)- Primary Melanoma of back (Multi)- Primary documented in this encounter [facility] Work Phone: Evaluation note* Diagnosis Melanoma of back (Multi)- Primary Melanoma of back (Multi) Class 1 obesity due to excess calories with body mass index (BMI) of 31.0 to 31.9 in adult Gastroesophageal reflux disease without esophagitis Esophageal reflux documented in this encounter [facility] Work Phone: Evaluation note* Diagnosis Melanoma of back (Multi) documented in this encounter [facility] Work Phone: Evaluation note* Diagnosis Melanoma of back (Multi)- Primary documented in this encounter [facility] Work Phone: Evaluation note* Diagnosis Melanoma of back (Multi) documented in this encounter [facility] Work Phone: Evaluation note* Diagnosis Melanoma of back (Multi) documented in this encounter [facility] Work Phone: Evaluation note* Diagnosis Melanoma of back (Multi) documented in this encounter [facility] Work Phone: [phone] note* Diagnosis Melanoma of back (Multi) documented in this encounter [facility] Work Phone: [phone] note* Diagnosis Melanoma of back (Multi)- Primary documented in this encounter [facility] Work Phone: [phone] note* Diagnosis Melanoma of back (Multi) documented in this encounter [facility] Work Phone: [phone] note* Diagnosis Neurofibroma of thorax- Primary Melanoma of back (Multi) Neurofibroma of thorax documented in this encounter [facility] Work Phone: Evaluation note* Diagnosis Neurofibroma of thorax- Primary Neurofibroma of thorax Acute postoperative pain Other acute postoperative pain Hyperlipidemia Other and unspecified hyperlipidemia Irritable bowel syndrome Depression Depressive disorder, not elsewhere classified History of migraine headaches Skin cancer Other malignant neoplasm of skin, site unspecified documented in this encounter [facility] Work Phone: [phone] note* Diagnosis Neurofibroma of thorax- Primary documented in this encounter [facility] Work Phone: [phone] note* Diagnosis Mediastinal mass Swelling, mass, or lump in chest documented in this encounter [facility] Work Phone: Evaluation note* Diagnosis Onset Date Resolution Status Admit Date Insomnia acute January 16, 025 9:18am Migraine noneactive January 16 025 9:18am [facility] Work Phone: Reason for referral (narrative)No reason for referral information [facility] Work Phone: Reason for visit Narrative* Auth/Cert Specialty Diagnoses / Procedures Referred By Marixa t Referred To Contact Diagnoses Melanoma of back (Multi) Melanoma of back (Multi) [C43.59] Procedures [place] EXCISION TUMOR SOFT TIS BACK/FLANK SUBQ 3 CM/> [place] BX/EXC LYMPH NODE OPEN DEEP AXILLARY NODE Excision Lesion Back [place] [address] [address] [facility] [place] Phone: tel: fax: [facility] OR [address] [place] [phone] fax: Referral ID Status Reason Start Date Expiration Date Visits Re quested Visits Authorized [id number] 1 1 [facility] Work Phone: Reabbl for visit Narrative* Imaging (Routine) - Authorized Specialty Diagnoses / Procedures Referred By Contac t Referred To Contact Radiology Diagnoses Melanoma of back (Multi) Procedures NM lymphoscintigram Yanet Pacheco [place] [id number] [place] [address] [place] [id number] Phone: tel: fax: Referral ID Status Reason Start Date Expiration Date Visits Requested Visits Authorized [id number] Authorized Perform Procedure 07/18/2024 07/18/2025 2 2 [facility] Work Phone: reason for visit Narrative* Imaging (Routine) - Authorized Specialty Diagnoses / Procedures Referred By Contac t Referred To Contact Radiology Diagnoses Melanoma of back (Multi) Procedures NM lymphoscintigram Yanet Pacheco MD [id number] [place] [address] [place] [id number] Phone: tel: fax: Referral ID Status Reason Start Date Expiration Date Visits Requested Visits Authorized [id number] Authorized Perform Procedure 07/18/2024 07/18/2025 2 2 [facility] Work Phone: reason for visit Narrative* Imaging (Emergency) - Authorized Specialty Diagnoses / Procedures Referred By Contac t Referred To Contact Radiology Diagnoses Melanoma of back (Multi) Procedures MR brain w and wo IV contrast MR brain w [place] [address] [address] [id number] Phone: tel: fax: Referral ID Status Reason Start Date Expiration Date Visits Requested Visits Authorized [id number] Authorized Perform Procedure 09/06/2024 09/06/2025 1 1 [facility] Work Phone: reason for visit Narrative* Imaging (Emergency) - Authorized Specialty Diagnoses / Procedures Referred By Contac t Referred To Contact Radiology Diagnoses Melanoma of back (Multi) Procedures NM PET CT whole body NM PET CT whole body Alanna Pennington [place] [id number] [place] [address] Phone: tel: fax: Referral ID Status Reason Start Date Expiration Date Visits Requested Visits Authorized [id number] Authorized Perform Procedure 09/06/2024 09/06/2025 3 3 [facility] Work Phone: reason for visit Narrative* Imaging (Emergency) - Authorized Specialty Diagnoses / Procedures Referred By Contac t Referred To Contact Radiology Diagnoses Melanoma of back (Multi) Procedures NM PET CT whole body NM PET [place] [address] [place] [address] Phone: tel: fax: Referral ID Status Reason Start Date Expiration Date Visits Requested Visits Authorized [id number] Authorized Perform Procedure 09/06/2024 09/06/2025 3 3 [facility] Work Phone: reason for visit Narrative* Imaging (Emergency) - Authorized Specialty Diagnoses / Procedures Referred By Contac t Referred To Contact Radiology Diagnoses Melanoma of back (Multi) Procedures CT guided percutaneous biopsy mediastinum CT guided percutaneous biopsy muscle Consult to [place]ventional [place] [address] [place] [address] Phone: tel: fax: Referral ID Status Reason Start Date Expiration Date Visits Requested Visits Authorized [id number] Authorized Perform Procedure 10/04/2024 10/04/2025 1 1 [facility] Work Phone: reason for visit Narrative* Auth/Cert Specialty Diagnoses / Procedures Referred By Contac t Referred To Contact Diagnoses 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] Procedures [place] THORACOSCOPY W/EXC MEDIASTINAL CYST TUMOR/MASS Robotic assisted posterior mediastinal mass resection - [place] [address] [place] [address] Phone: tel: fax: [facility] [place] [address] [place] [phone] fax: Referral ID Status Reason Start Date Expiration Date Visits Re quested Visits Authorized [id number] 1 1 [facility] Work Phone: Reason for visit Narrative* Imaging (Routine) - Authorized Specialty Diagnoses / Procedures Referred By Marixa t Referred To Contact Radiology Diagnoses Mediastinal mass Procedures XR chest 2 [place] [address] [place] [address] Phone: tel: fax: Referral ID Status Reason Start Date Expiration Date Visits Requested Visits Authorized [id number] Authorized Perform Procedure 12/05/2024 12/05/2025 1 1 [facility] Work Phone: Chief Complaint and Reason for [...] Active Damir Laughlin MD Attending Provider Active Radio Frequency Technician Relationship Specialty Start Date End Date Monroe Whitaker MD [address] [place] [address] PCP - General Internal Medicine 06/09/23 Radio Frequency Technician Relationship Specialty Start Date End Date Monroe Whitaker MD [address] [place] [address] PCP - General Internal Medicine 06/09/23 Radio Frequency Technician Relationship Specialty Start Date End Date Monroe Whitaker MD [address] [place] [address] PCP - General Internal Medicine 06/09/23 Radio Frequency Technician Relationship Specialty Start Date End Date Monroe Whitaker DO [address] [place] [address] PCP - General Internal Medicine 07/07/24 Migel Polanco MD [address] [address] Referring Physician Dermatology 07/07/24 Radio Frequency Technician Relationship Specialty Start Date End Date Monroe Whitaker DO [address] [place] [address] PCP - General Internal Medicine 07/07/24 Migel Polanco MD [address] [facility] [address] [place] [address] Referring Physician Dermatology 07/07/24 Radio Frequency Technician Relationship Specialty Start Date End Date Monroe Whitaker DO [facility] [place] [address] PCP - General Internal Medicine 07/07/24 Migel Polanco MD [address] [address] Referring Physician Dermatology 07/07/24 Radio Frequency Technician Relationship Specialty Start Date End Date Monroe Whitaker DO [address] [place] [address] PCP - General Internal Medicine 07/07/24 Migel Polanco MD [address] [address] Referring Physician Dermatology 07/07/24 Radio Frequency Technician Relationship Specialty Start Date End Date Monroe Whitaker DO [facility] [place] [address] PCP - General Internal Medicine 07/07/24 Migel Polanco MD [address] [facility] [address] [place] [address] Referring Physician Dermatology 07/07/24 Radio Frequency Technician Relationship Specialty Start Date End Date Monroe Whitaker DO [facility] [place] [address] PCP - General Internal Medicine 07/07/24 Migel Polanco MD [address] [facility] [address] [place] [address] Referring Physician Dermatology 07/07/24 [place] [address] [place] [address] Consulting Physician Hematology and Oncology 09/06/24 Radio Frequency Technician Relationship Specialty Start Date End Date Monroe Whitaker DO [facility] [place] [address] PCP - General Internal Medicine 07/07/24 Migel Polanco MD [address] [address] Referring Physician Dermatology 07/07/24 [place] [address] [place] [address] Consulting Physician Hematology and Oncology 09/06/24 Francheska Hayden, RN Patient Registered Vascular Technologist (Rvt) Hematology and Oncology 09/06/24 Radio Frequency Technician Relationship Specialty Start Date End Date Monroe Whitaker DO [address] [place] [address] PCP - General Internal Medicine 07/07/24 Migel Polanco MD [address] [facility] [address] [place] [address] Referring Physician Dermatology 07/07/24 [place] [address] [place] [address] Consulting Physician Hematology and Oncology 09/06/24 Francheska Hayden, RN Patient Registered Vascular Technologist (Rvt) Hematology and Oncology 09/06/24 Radio Frequency Technician Relationship Specialty Start Date End Date Monroe Whitaker DO [facility] [place] [address] PCP - General Internal Medicine 07/07/24 Migel Polanco MD [address] [facility] [address] [place] [address] Referring Physician Dermatology 07/07/24 [place] [address] [place] [address] Consulting Physician Hematology and Oncology 09/06/24 Francheska Hayden, RN Patient Registered Vascular Technologist (Rvt) Hematology and Oncology 09/06/24 Radio Frequency Technician Relationship Specialty Start Date End Date Monroe Whitaker DO [facility] [place], [place] [id number] PCP - General Internal Medicine 07/07/24 [facility] [address] [facility] [address] [place] [address] Referring Physician Dermatology 07/07/24 [place] [address] [place] [address] Consulting Physician Hematology and Oncology 09/06/24 Francheska Hayden, RN Patient Registered Vascular Technologist (Rvt) Hematology and Oncology 09/06/24 Radio Frequency Technician Relationship Specialty Start Date End Date Monroe Whitaker DO [facility] [place] [address] PCP - General Internal Medicine 07/07/24 Migel Polanco MD [address] [facility] [address] [place] [address] Referring Physician Dermatology 07/07/24 [place] [address] [place] [address] Consulting Physician Hematology and Oncology 09/06/24 Francheska Hayden, RN Patient Registered Vascular Technologist (Rvt) Hematology and Oncology 09/06/24 Radio Frequency Technician Relationship Specialty Start Date End Date Monroe Whitaker DO [address] [place] [address] PCP - General Internal Medicine 07/07/24 Migel Polanco MD [address] [facility] [address] [place] [address] Referring Physician Dermatology 07/07/24 [place] [address] [place] [address] Consulting Physician Hematology and Oncology 09/06/24 Francheksa Hayden, RN Patient Registered Vascular Technologist (Rvt) Hematology and Oncology 09/06/24 Radio Frequency Technician Relationship Specialty Start Date End Date Monroe Whitaker DO [address] [place] [address] PCP - General Internal Medicine 07/07/24 Migel Polanco MD [address] [facility] [address] [place] [address] Referring Physician Dermatology 07/07/24 [place] [address] [place] [address] Consulting Physician Hematology and Oncology 09/06/24 Francheska Hayden, RN Patient Registered Vascular Technologist (Rvt) Hematology and Oncology 09/06/24 Radio Frequency Technician Relationship Specialty Start Date End Date Monroe Whitaker DO [address] [place] [address] PCP - General Internal Medicine 07/07/24 Migel Polanco MD [address] [address] Referring Physician Dermatology 07/07/24 [place] [address] [place] [address] Consulting Physician Hematology and Oncology 09/06/24 Francheska Hayden, RN Patient Registered Vascular Technologist (Rvt) Hematology and Oncology 09/06/24 Team Status: Inactive [...] content) DATE CREATED AUTHOR 05/15/2022 [facility] DATE CREATED AUTHOR AUTHOR'S ORGANIZ ATION 01/07/2023 [facility] DATE CREATED AUTHOR AUTHOR'S ORGANIZ ATION 01/29/2023 [facility] DATE CREATED AUTHOR AUTHOR'S ORGANIZ ATION 06/14/2024 [facility] DATE CREATED AUTHOR AUTHOR'S ORGANIZ ATION 07/19/2024 [facility] DATE CREATED AUTHOR AUTHOR'S ORGANIZ ATION 11/04/2024 [facility] DATE CREATED AUTHOR AUTHOR'S ORGANIZ ATION 11/21/2024 [facility] DATE CREATED AUTHOR AUTHOR'S ORGANIZ ATION 12/15/2024 [facility] Reason for Visit (unrecogniz ed section and content) Reason Comments Well Women Visit Reason Comments New Patient Visit Reason Comments New Patient Visit Specialty Diagnoses / Procedures Referred By Marixa t Referred To Contact Hematology and Oncology Diagnoses Melanoma of back (Multi) [place] [address] [facility] [place] [address] Phone: tel: fax: [place] [address] [place] [address] Phone: tel: fax: Referral ID Status Reason Start Date Expiration Date Visits Requested Visits Authorized [id number] Authorized Specialty Services Required 08/29/2024 08/29/2025 1 [...] refused) 0923 (Not Given - Provider: Yue Toledo RN - Reason: Patient/family refused) rosuvastatin (Crestor) [...] (Continued by Anesthesia - Provider: Rogelio Clifton APRN-CHILD NUTRITION DIRECTOR)1101 (Stopped - Provider: Melissa Barber RN - [...] pain scores based on patient preference? Yes 1122 (Given - Provider: Melissa Barber RN)0364 (Given - Provider: Melissa Barber RN)3865 (Given - Provider: Zoey Lozano RN) oxyCODONE (Roxicodone) immediate release tablet 5 mg 5 mg, oral, Every 4 hours PRN, pain moderate (4-6), first line, Starting on Wed11/20/24 at 1100, Phase II/On Unit, If ordered PRN for pain, nurse is permitted to administer this medication for higher pain scores based on patient preference? Yes 4077 (Given - Provid er: Yue Toledo RN) [...] BE BASED ON THE PRIMARY CLINICAL RECORDS. [email or web address] provides no warranty or guarantee of the accuracy or completeness of information in this document.
[2025-02-03 11:52] LABS: Hematocrit 41.6 % (36.0-48.0); Hemoglobin 13.8 g/dL (12.0-16.0); Immature Granulocytes Abs Auto 0.08 10^3/uL (0.00-0.03); Immature Granulocytes Pct Auto 1.0 % (0.0-0.5); Lymphocytes Absolute Auto 2.2 10^3/uL (1.2-3.8); Mean Corpuscular HGB Conc 33.2 g/dL (29.9-35.2); Mean Corpuscular Hemoglobin 31.2 pg (26.7-34.0); Mean Corpuscular Volume 94.1 fL (81.0-99.0); Platelet Count 293 10^3/uL (150-450); Red Blood Count 4.42 10^6/uL (4.20-5.40); White Blood Count 7.7 10^3/uL (4.0-11.0)
[2025-02-03 12:23] LABS: Anion Gap 15.7; Blood Urea Nitrogen 11.0 mg/dL (7.0-18.0); Carbon Dioxide 25.5 mmol/L (21.0-32.0); Chloride 108 mmol/L (98-107); Estimated GFR (African America >60 (>=60 mL/min/1.73m^2); Estimated GFR (Non-African Ame >60 (>=60 mL/min/1.73m^2); Potassium 4.2 mmol/L (3.5-5.1); Sodium 145 mmol/L (136-145)
== END 2025-02-03 11:23 | disposition home or self-care (01) ==
PROVIDERS: PCP Internal Medicine; Visit Provider Internal Medicine
DX: R60.0 Localized edema (principal); I10 Essential (primary) hypertension
CPT/HCPCS: 36415; 80051; 82565; 84520; 85025

== ENCOUNTER 2025-02-12 15:26 | Emergency (ER) | payer BC, SELFPAY ==
[2025-02-12] VITALS (35 sets, daily range): BP systolic 120–145; BP diastolic 74–119; PULSE 69–95; TEMP 36.8; O2SAT 97; BMI 32.1
--- OUTSIDE RECORDS SUMMARY | 2025-02-12 16:04 | XMS_ITS | CCD ---
Author Organization [facility]iniSyga Care Team Providers Care Researcher Name Role Phone MD Emmanuel Laughlin Attending Provider [phone] NO FAMILY, PHYSICIAN Primary Care Provider Unava ilable JR Monroe Whitaker Primary Care Provider [phone] OTILIA, DR NATARAJAN Attending Unavailable KARASIK, DR [...] Unavailable JR Monroe Whitaker Primary Care Provider [phone] MD Damir Laughlin Attending Provider [phone] Monroe Whitaker Primary Care Unavailable Damir Laughlin Attending Unavailable Damir Laughlin Admitting Unavailable Monroe Whitaker MD Primary Care Provider MARIA RICE Attending Unavailable TALON TILLEY Attending Unavailable Migel Polanco MD Unavailable [phone] Monroe Whitaker DO Primary Care Provider Gorge ARANGO, Alanna Glover Unavailable Catracho GONZALEZ, [place] Unavailable Unavailab YANET Irene Attending Unavailable MIGEL [...] Valone JR Monroe L Primary Care Provider [phone] Maria Flowers APRN Attending Provider Allergies Allergy Classification Reported Allergen(s) Allergy Type Date of Onset Reaction(s) Facility (1 source) No Known Medication Allergies; Translations: [No Known Medication Allergies] Propensity to adverse reactions (disorder) [facility] Repository Medications Current Medications Medication [...] O2 Sat Above: 92% polyethylene glycol 3350 95087 mg powder for oral solution (1 source) [...] II/On Unit, DC once tolerating oral intake [id number] (Lymphoseek) injection 0.61 millicurie (1 source) Start: [...] 3 Chronic Other aftercare (1 source) 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 ACCESSION NUMBER(S): [id number] ORDERING CLINICIAN: HARSHA OJEDA FINDINGS: The cardiomediastinal silhouette size is within normal limits. There is no focal consolidation, edema or pneumothorax. No sizeable pleural effusion. IT COMPLIANCE MANAGER shunt catheter tubing visualized projecting over the right hemithorax. Right axillary surgical clips. IMPRESSION: 1. No acute cardiopulmonary process. MACRO: None. Signed by: Raquel Sweeney 12/09/2024 8:14 AM Dictation workstation: [id number] Normal [facility] Basic metabolic 2000 panelon 11-21-2024 Anion gap [Moles/Vol] 12 mmol/L 10 - 2 0 mmol/L [facility] Calcium [Mass/Vol] 8.3 mg/dL Low 8.6 - 10. 3 mg/dL [facility] Chloride [Moles/Vol] 103 mmol/L 98 - 10 7 mmol/L [facility] CO2 [Moles/Vol] 26 mmol/L 21 - 32 mmol/L [facility] Creatinine [Mass/Vol] 0.7 mg/dL 0.50 - 1.05 mg/dL [facility] eGFR - PINF [facility] Comment on above: Calculations of iraj mated GFR are performed using the 2020 CKD-EPI Study Refit equation without the race variable for the IDMS-Traceable creatinine methods. https://jasn.asnjournals.org/content/early//ASN.2020 249705 Glucose [Mass/Vol] 100 mg/dL High 74 - 99 mg/dL [facility] Interpretation and review of laboratory results Abnormal [facility] Potassium [Moles/Vol] 3.8 mmol/L 3.5 - 5.3 mmol/L [facility] Sodium [Moles/Vol] 137 mmol/L 136 - 145 mmol/L [facility] Urea nitrogen [Mass/Vol] 9 mg/dL 6 - 23 mg/dL [facility] Anion gap [Moles/Vol] 12 mmol/L Normal 10-20 [facility] Comment on above: Performed By: #### 2 4321-2 #### HARLEEN QUINTANA ([id number]) [facility] ([facility]) [address] [place] [address] Calcium [Mass/Vol] 8.3 mg/dL Low 8.6-10.3 [place] Comment on above: Performed By: #### 2 4321-2 #### HARLEEN QUINTANA ([id number]) [facility]) [address] [place] [address] Chloride [Moles/Vol] 103 mmol/L Normal 98-107 [facility] Comment on above: Performed By: #### 2 4321-2 #### HARLEEN QUINTANA ([id number]) [facility] [address] [place] [address] CO2 [Moles/Vol] 26 mmol/L Normal 21-32 [facility] Comment on above: Performed By: #### 2 4321-2 #### HARLEEN QUINTANA ([id number]) [facility]) [address] [place] [address] Creatinine [Mass/Vol] 0.70 mg/dL Normal 0.50-1.05 [facility] Comment on above: Performed By: #### 2 4321-2 #### HARLEEN QUINTANA ([id number]) [facility]) [address] [place] [address] 69909 GFR/1.73 sq M.predicted MDRD (S/P/Bld) [Vol rate/Area] mL/min/{1.73_m2} Normal >60 [facility] Comment on above: Result Comment: Calc ulations of estimated GFR are performed using the 2020 CKD-EPI Study Refit equation without the race variable for the IDMS-Traceable creatinine methods. https://jasn.asnjournals.org/content//ASN.2020 155868 Performed By: #### 2 4321-2 #### HARLEEN QUINTANA ([id number]) [facility]) [address] [place] [address] Glucose [Mass/Vol] 100 mg/dL High 74-99 [place] Comment on above: Performed By: #### 2 4321-2 #### HARLEEN QUINTANA ([id number]) [facility]) [address] [place] [address] 32197 Potassium [Moles/Vol] 3.8 mmol/L Normal 3.5-5.3 [facility] Comment on above: Performed By: #### 2 4321-2 #### HARLEEN QUINTANA ([id number]) [facility]) [address] [place] [address] 33000 Sodium [Moles/Vol] 137 mmol/L Normal 136-145 [place] Comment on above: Performed By: #### 2 4321-2 #### HARLEEN QUINTANA ([id number]) [facility]) [address] [place] [address] 39298 Urea nitrogen [Mass/Vol] 9 mg/dL Normal 6-23 [facility] Comment on above: Performed By: #### 2 4321-2 #### HARLEEN QUINTANA ([id number]) [facility] [address] [place] [address] 79332 CBC panel Auto (Bld)on 11-21 Erythrocyte distribution width (RBC) [Ratio] 14.4 % 11.5 - 14.5 % [facility] Hematocrit (Bld) [Volume fraction] 37.5 % 36.0 - 46.0 % [facility] Hemoglobin (Bld) [Mass/Vol] 12.3 g/dL 12.0 - 16.0 g/dL [facility] Interpretation and review of laboratory results Abnormal [facility] MCH (RBC) [Entitic mass] 31.1 pg 26.0 - 34.0 pg [facility] MCHC (RBC) [Mass/Vol] 32.8 g/dL 32.0 - 36.0 g/dL [facility] MCV (RBC) [Entitic vol] 95 fL 80 - 100 fL [facility] Nucleated RBC/100 WBC (Bld) [Ratio] 0 % [facility] Platelets (Bld) [#/Vol] 228 10*3/uL [facility] RBC (Bld) [#/Vol] 3.96 10*6/uL [facility] WBC (Bld) [#/Vol] 8.8 10*3/uL [facility] Erythrocyte distribution width (RBC) [Ratio] 14.4 % Normal 11.5-14.5 [facility] Comment on above: Performed By: #### 5 8410-2 #### HARLEEN QUINTANA ([id number]) [facility]) [address] [place] [address] 83484 Hematocrit (Bld) [Volume fraction] 37.5 % Normal 36.0-46.0 [facility] Comment on above: Performed By: #### 5 8410-2 #### HARLEEN QUINTANA ([id number]) [facility]) [address] [place] [address] 86833 Hemoglobin (Bld) [Mass/Vol] 12.3 g/dL Normal 12.0-16.0 [facility] Comment on above: Performed By: #### 5 8410-2 #### HARLEEN QUINTANA ([id number]) [facility]) [address] [place] [address] 61795 MCH (RBC) [Entitic mass] 31.1 pg Normal 26.0-34.0 [facility] Comment on above: Performed By: #### 5 8410-2 #### HARLEEN QUINTANA ([id number]) [facility]) [address] [place] [address] 84056 MCHC (RBC) [Mass/Vol] 32.8 g/dL Normal 32.0-36.0 [facility] Comment on above: Performed By: #### 5 8410-2 #### HARLEEN QUINTANA ([id number]) [facility]) [address] [place] [address] 06099 MCV (RBC) [Entitic vol] 95 fL Normal 80-100 [facility] Comment on above: Performed By: #### 5 8410-2 #### HARLEEN QUINTANA ([id number]) [facility]) [address] [place] [address] 64635 Nucleated RBC/100 WBC (Bld) [Ratio] 0.0 /100 WBCs Normal 0.0-0.0 [facility] Comment on above: Performed By: #### 5 8410-2 #### HARLEEN QUINTANA ([id number]) [facility]) [address] [place] [address] 23152 Platelets (Bld) [#/Vol] 228 x10*3/uL Normal 150-450 [facility] Comment on above: Performed By: #### 5 8410-2 #### HARLEEN QUINTANA ([id number]) [facility]) [address] [place] [address] 37953 RBC (Bld) [#/Vol] 3.96 x10*6/uL Low 4.00-5.20 [facility] Comment on above: Performed By: #### 5 8410-2 #### HARLEEN QUINTANA ([id number]) [facility]) [address] [place] [address] 88333 WBC (Bld) [#/Vol] 8.8 x10*3/uL Normal 4.4-11.3 [facility] Comment on above: Performed By: #### 5 8410-2 #### HARLEEN QUINTANA ([id number]) [facility] [address] [place] [address] 41762 Magnesiumon 11-21-2024 Magnesium [Mass/Vol] 2.2 mg/dL 1.60 - 2.40 mg/dL [facility] Magnesium [Mass/Vol] 2.20 mg/dL Normal 1.60-2.40 [facility] Comment on above: Performed By: #### 1 9123-9 #### HARLEEN QUINTANA ([id number]) [facility] [address] [place] [address] 68946 Magnesium [Mass/Vol]on 11-21 Interpretation and review of laboratory results Normal [facility] No Panel Informationon 11-21 [facility] XR CHEST 1 VIEWon 11-21-2024 XR CHEST 1 VIEW Interpreted By: Jose Rogers, STUDY: XR CHEST 1 VIEW; 11/21/2024 10:25 am INDICATION: Signs/Symptoms:chest tube removal. COMPARISON: Chest radiograph 11/21/2024 ACCESSION NUMBER(S): [id number] ORDERING CLINICIAN: PARTHA ROCHA FINDINGS: AP radiograph of the chest was provided. A presumed IT COMPLIANCE MANAGER shunt is seen overlying the right base of the neck, right chest wall, and right hemiabdomen with tip not in [id number]. Interval removal of left chest tube. CARDIOMEDIASTINAL [...] Jose Rogers 11/21/2024 10:33 AM Dictation workstation: [id number] [facility] XR CHEST 1 VIEW Interpreted By: Eloy José, STUDY: XR CHEST 1 VIEW; 11/21/2024 5:45 am INDICATION: Signs/Symptoms:s/p posterior mediastinal mass resection. COMPARISON: Portable chest, 20 November 2024 ACCESSION NUMBER(S): [id number] ORDERING CLINICIAN: ARIELLE SHAH TECHNIQUE: Single frontal view of the chest; Portable technique FINDINGS: Left chest tube unchanged in position Right sided central line is unchanged and well positioned No demonstrable pneumothorax or acute infiltrate on either side No large effusion or edema IMPRESSION: No interval change MACRO: None Signed by: Eloy José 11/21/2024 8:35 AM Dictation workstation: [id number] [facility] Comment on above: Order Comment: Tomor row AM XR Chest Single viewon 11-21 Interval removal of left chest tube. No evidence of acute cardiopulmonary process. MACRO: None Signed by: Jose Rogers 11/21/2024 10:33 AM Dictation workstation: [id number] MMODAL Interpreted By: Jose Rogers, STUDY: XR CHEST 1 VIEW; 11/21/2024 10:25 am INDICATION: Signs/Symptoms:chest tube removal. COMPARISON: Chest radiograph 11/21/2024 ACCESSION NUMBER(S): [id number] ORDERING CLINICIAN: PARTHA ROCHA FINDINGS: AP radiograph of the chest was provided. A presumed IT COMPLIANCE MANAGER shunt is seen overlying the right base of the neck, right chest wall, and right hemiabdomen with tip not in [id number]. Interval removal of left chest tube. CARDIOMEDIASTINAL [...] removal. COMPARISON: Chest radiograph 11/21/2024 ACCESSION NUMBER(S): [id number] ORDERING CLINICIAN: PARTHA ROCHA FINDINGS: AP radiograph of the chest was provided. A presumed IT COMPLIANCE MANAGER shunt is seen overlying the right base of the neck, right chest wall, and right hemiabdomen with tip not in [id number]-[id number]-ycbr. Interval removal of left chest tube. CARDIOMEDIASTINAL [...] Jose Rogers 11/21/2024 10:33 AM Dictation workstation: [id number] [facility] Work Phone: Radiology Study observation (narrative) [facility] Work Phone: No interval change MACRO: None Signed by: Eloy José 11/21/2024 8:35 AM Dictation workstation: [id number] MMODAL Interpreted By: Eloy José, STUDY: XR CHEST 1 VIEW; 11/21/2024 5:45 am INDICATION: Signs/Symptoms:s/p posterior mediastinal mass resection. COMPARISON: Portable chest, 20 November 2024 ACCESSION NUMBER(S): [id number] ORDERING CLINICIAN: ARIELLE SHAH TECHNIQUE: Single frontal [...] Portable chest, 20 November 2024 ACCESSION NUMBER(S): [id number] ORDERING CLINICIAN: ARIELLE SHAH TECHNIQUE: Single frontal view of the chest; Portable technique FINDINGS: Left chest tube unchanged in position Right sided central line is unchanged and well positioned No demonstrable pneumothorax or acute infiltrate on either side No large effusion or edema IMPRESSION: No interval change MACRO: None Signed by: Eloy José 11/21/2024 8:35 AM Dictation workstation: [id number] [facility] Work Phone: Radiology Study observation (narrative) [facility] Work Phone: XR Chest Single viewOrdered By: Jose Rogers on 11-21-2024 [facility] Work Phone: XR Chest Single viewOrdered By: Eloy José on 11-21-2024 [facility] Work Phone: Blood type and Indirect anti body screen panel (Bld)on 11-20-2024 ABO group Nom (Bld) A Unive [facility] Blood group antibody screen Ql Negative [facility] D Ag Ql (Bld) Positive [facility] ABO group Nom (Bld) A Normal [facility] Comment on above: Performed By: #### 3 4532-2 #### HARLEEN MAGANA RIO ESTEPHANIA ([id number]) [facility] ([facility]) [address] Blood group antibody screen Ql Negative [facility] Comment on above: Performed By: #### 3 4532-2 #### HARLEEN MAGANA TRUNG BEST ([id number]) [facility] ([facility]) [address] [place] [address] [place] D Ag Ql (Bld) Positive [facility] Comment on above: Performed By: #### 3 4532-2 #### HARLEEN MAGANA TRUNG BEST ([id number]) [facility] [employer] ([facility]) [address] [place] [address] [place] ECG 12 leadOrdered By: Maribel Rabago on 11-20-2024 Atrial Rate 85 BPM [facility] Work Phone: P Fulton 52 degrees [facility] Work Phone: P Offset 188 [facility] Work Phone: P Onset 138 ms [facility] Work Phone: KS Interval 166 ms [facility] Work Phone: Q Onset 221 ms [facility] Work Phone: QRS Count 14 beats [facility] Work Phone: QRS Duration 90 ms [facility] Work Phone: [phone] QT Interval 390 ms [facility] Work Phone: [phone] QTC Calculation(Bazett) 464 ms [facility] Work Phone: QTC Fredericia 438 ms [facility] Work Phone: R Fulton -4 degrees [facility] Work Phone: T Fulton 29 degrees [facility] Work Phone: T Offset 416 ms [facility] Work Phone: Ventricular Rate 85 BPM [facility] Work Phone: [facility] Work Phone: ECG 12 leadon 11-20-2024 Normal sinus rhythm Low voltage QRS Borderline ECG When compared with ECG of 07-AUG-2024 06:33, QT has lengthened Confirmed by Jordon Rabago ([id number]) on 11/20/2024 10:52:14 PM MUSE Jordon Rabago MD - 11/20/2024 Normal sinus rhythm Low voltage QRS Borderline ECG When compared with ECG of 07-AUG-2024 06:33, QT has lengthened Confirmed by Jordon Rabago ([id number]) on 11/20/2024 10:52:14 PM [facility] Work Phone: ECG 12-LEADon 11-20-2024 ECG 12-LEAD Ventricular Rate 85 Atrial Rate 85 P-R Interval 166 QRS Duration 90 Q-T Interval 390 QTC Calculation(Bazett) 464 P Fulton 52 R Fulton -4 T Fulton 29 QRS Count 14 Q Onset 221 P Onset 138 P Offset 188 T Offset 416 QTC Fredericia 438 Diagnosis Normal sinus rhythm Low voltage QRS Borderline ECG When compared with ECG of 07-AUG-2024 06:33, QT has lengthened Confirmed by Jordon Rabago ([id number]) on 11/20/2024 10:52:14 PM Normal [facility] Surgical pathology studyon 0 11-20-2024 Surgical pathology study Pathology report.total SEE COMMENT Surgical Pathology Case: [id number] Authorizing Provider: Harsha Ojeda MD Collected: 11/20/2024 0849 Ordering Location: [facility] Received: 11/20/2024 0926 OR Pathologist: Saritha [...] Sequential full-thickness sections Gross dissection performed at: [place] [address] LAB AP ASR DISCLAIMER One or more of the reagents used to perform assays on this specimen MAY have contained components considered to be analyte specific reagents (ASR's). ASR's have not been cleared or approved by the U.S. Food and Drug Administration. These assays were developed and their performance characteristics determined by the Department of Pathology at [facility]. The FDA does not require this [...] positive and negative controls which stained appropriately. 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 INDICATION: Signs/Symptoms:s/p mediastinal mass resection. COMPARISON: None. ACCESSION NUMBER(S): [id number] ORDERING CLINICIAN: ARIELLE SHAH FINDINGS: Chest tube [...] Raquel Sweeney 11/20/2024 11:04 AM Dictation workstation: [id number] [facility] Comment on above: Order Comment: On ar rival to PACU/SICU XR Chest Single viewon 11-20 1. As above MACRO: None. Signed by: Raquel Sweeney 11/20/2024 11:04 AM Dictation workstation: [id number] MMODAL Interpreted By: Raquel Sweeney, STUDY: Chest, single AP view. INDICATION: Signs/Symptoms:s/p mediastinal mass resection. COMPARISON: None. ACCESSION NUMBER(S): [id number] ORDERING CLINICIAN: ARIELLE SHAH FINDINGS: Chest tube [...] mediastinal mass resection. COMPARISON: None. ACCESSION NUMBER(S): [id number] ORDERING CLINICIAN: ARIELLE SHAH FINDINGS: Chest tube [...] Raquel Sweeney 11/20/2024 11:04 AM Dictation workstation: [id number] [facility] Work Phone: Radiology Study observation (narrative) [facility] Work Phone: XR Chest Single viewOrdered By: Raquel Sweeney on 11-20-2024 [facility] Work Phone: Blood type and Indirect anti body screen panel (Bld)on 11-02-2024 ABO group Nom (Bld) A Normal [facility] Comment on above: Performed By: #### 3 4532-2 #### HARLEEN MAGANA RIO ESTEPHANIA ([id number]) [facility]) [address] Blood group antibody screen Ql Negative [facility] Comment on above: Performed By: #### 3 4532-2 #### HARLEEN LIFT12 ([id number]) [facility] ([facility]) [address] [place] [address] [place] D Ag Ql (Bld) Positive [facility] Comment on above: Result Comment: 2nd ABO test required. Order and Collect VERAB Performed By: #### 3 4532-2 #### HARLEEN WALLBACK ESTEPHANIA ([id number]) [facility]) [address] [place] [address] [place] CBC panel Auto (Bld)on 11-02 Erythrocyte distribution width (RBC) [Ratio] 14.3 % Normal 11.5-14.5 [facility] Comment on above: Performed By: #### 5 8410-2 #### HARLEEN QUINTANA ([id number]) [facility]) [address] [place] [address] 89668 Hematocrit (Bld) [Volume fraction] 42.8 % Normal 36.0-46.0 [facility] Comment on above: Performed By: #### 5 8410-2 #### HARLEEN QUINTANA ([id number]) [facility]) [address] [place] [address] 60963 Hemoglobin (Bld) [Mass/Vol] 14.1 g/dL Normal 12.0-16.0 [facility] Comment on above: Performed By: #### 5 8410-2 #### HARLEEN QUINTANA ([id number]) [facility]) [address] [place] [address] 34443 MCH (RBC) [Entitic mass] 31.3 pg Normal 26.0-34.0 [facility] Comment on above: Performed By: #### 5 8410-2 #### HARLEEN QUINTANA ([id number]) [facility]) [address] [place] [address] 60185 MCHC (RBC) [Mass/Vol] 32.9 g/dL Normal 32.0-36.0 [facility] Comment on above: Performed By: #### 5 8410-2 #### HARLEEN QUINTANA ([id number]) [facility]) [address] [place] [address] 98507 MCV (RBC) [Entitic vol] 95 fL Normal 80-100 [facility] Comment on above: Performed By: #### 5 8410-2 #### HARLEEN QUINTANA ([id number]) [facility] [address] [place] [address] 77369 Nucleated RBC/100 WBC (Bld) [Ratio] 0.0 /100 WBCs Normal 0.0-0.0 [facility] Comment on above: Performed By: #### 5 8410-2 #### HARLEEN QUINTANA ([id number]) [facility] [address] [place] [address] Platelets (Bld) [#/Vol] 246 x10*3/uL Normal 150-450 [facility] Comment on above: Performed By: #### 5 8410-2 #### HARLEEN QUINTANA ([id number]) [facility] [address] [place] [address] RBC (Bld) [#/Vol] 4.51 x10*6/uL Normal 4.00-5.20 [facility] Comment on above: Performed By: #### 5 8410-2 #### HARLEEN QUINTANA ([id number]) [facility]) [address] [place] [address] WBC (Bld) [#/Vol] 7.2 x10*3/uL Normal 4.4-11.3 [facility] Comment on above: Performed By: #### 5 8410-2 #### HARLEEN QUINTANA ([id number]) [facility] [address] [place] [address] Coagulation tissue factor in ducedon 11-02-2024 PT Coag (PPP) [Time] 10.7 s Normal 9.8-12.4 [facility] Comment on above: Performed By: #### 5 902-2 #### HARLEEN QUINTANA ([id number]) [facility] [address] [place] [address] Comprehensive metabolic 2000 panelon 11-02-2024 Albumin BCP dye [Mass/Vol] 4.5 g/dL Normal 3.4-5.0 [facility] Comment on above: Performed By: #### 2 4323-8 #### HARLEEN QUINTANA ([id number]) [facility]) [address] [place] [address] ALP [Catalytic activity/Vol] 49 U/L Normal 33-110 [facility] Comment on above: Performed By: #### 2 4323-8 #### HARLEEN QUINTANA ([id number]) [facility] [address] [place] [address] 71905 ALT With P-5'-P [Catalytic activity/Vol] 22 U/L Normal 7-45 [facility] Comment on above: Result Comment: Ana Rosa ents treated with Sulfasalazine may generate falsely decreased results for ALT. Performed By: #### 2 4323-8 #### HARLEEN QUINTANA ([id number]) [facility] [address] [place] [address] 69599 Anion gap [Moles/Vol] 11 mmol/L Normal 10-20 [facility] Comment on above: Performed By: #### 2 4323-8 #### HARLEEN QUINTANA ([id number]) [facility] [address] [place] [address] 04233 AST With P-5'-P [Catalytic activity/Vol] 19 U/L Normal 9-39 [facility] Comment on above: Performed By: #### 2 4323-8 #### HARLEEN QUINTANA ([id number]) [facility] [address] [place] [address] 58754 Bilirubin [Mass/Vol] 0.4 mg/dL Normal 0.0-1.2 [facility] Comment on above: Performed By: #### 2 4323-8 #### HARLEEN QUINTANA ([id number]) [facility] [address] [place] [address] 52393 Calcium [Mass/Vol] 8.7 mg/dL Normal 8.6-10.3 [facility] Comment on above: Performed By: #### 2 4323-8 #### HARLEEN QUINTANA ([id number]) [facility] [address] [place] [address] 13348 Chloride [Moles/Vol] 112 mmol/L High 98-107 [facility] Comment on above: Performed By: #### 2 4323-8 #### HARLEEN QUINTANA ([id number]) [facility] [address] [place] [address] CO2 [Moles/Vol] 25 mmol/L Normal 21-32 [facility] [facility] Comment on above: Performed By: #### 2 4323-8 #### HARLEEN QUINTANA ([id number]) [facility] ([facility]) [address] [place] [address] Creatinine [Mass/Vol] 0.79 mg/dL Normal 0.50-1.05 [facility] Comment on above: Performed By: #### 2 4323-8 #### HARLEEN QUINTANA ([id number]) [facility] ([facility]) [address] [place] [address] 12186 GFR/1.73 sq M.predicted MDRD (S/P/Bld) [Vol rate/Area] mL/min/{1.73_m2} Normal >60 [facility] Comment on above: Result Comment: Calc ulations of estimated GFR are performed using the 2020 CKD-EPI Study Refit equation without the race variable for the IDMS-Traceable creatinine methods. https://jasn.asnjournals.org/content/early/ASN.2020 954615 Performed By: #### 2 4323-8 #### HARLEEN QUINTANA ([id number]) [facility] ([facility]) [address] [place] [address]86 Glucose [Mass/Vol] 90 mg/dL Normal 74-99 [facility] Comment on above: Performed By: #### 2 4323-8 #### HARLEEN QUINTANA ([id number]) [facility] ([facility]) [address] [place] [address] Potassium [Moles/Vol] 4.3 mmol/L Normal 3.5-5.3 [facility] Comment on above: Performed By: #### 2 4323-8 #### HARLEEN QUINTANA ([id number]) [facility] ([facility]) [address] [place] [address]95[address] Protein [Mass/Vol] 6.6 g/dL Normal 6.4-8.2 [facility] Comment on above: Performed By: #### 2 4323-8 #### HARLEEN QUINTANA ([id number]) [facility] ([facility]) [address] [place] [address] 67328 Sodium [Moles/Vol] 144 mmol/L Normal 136-145 [facility] Comment on above: Performed By: #### 2 4323-8 #### HARLEEN QUINTANA ([id number]) [facility] ([facility]) [address] [place] [address]54 Urea nitrogen [Mass/Vol] 15 mg/dL Normal 6-23 [facility] Comment on above: Performed By: #### 2 4323-8 #### HARLEEN QUINTANA ([id number]) [facility] ([facility]) [address] [place] [address] 712[address] PT Coag (PPP) [Time]on 11-02 INR Coag (PPP) [Relative time] 1.0 Normal 0.9-1.1 [facility] Comment on above: Performed By: #### 5 902-2 #### HARLEEN QUINTANA ([id number]) [facility] ([facility]) [address] [place] [address]26 CBC panel Auto (Bld)on 10-09 Erythrocyte distribution width (RBC) [Ratio] 13.6 % Normal 11.5-14.5 [facility] Comment on above: Performed By: #### 5 8410-2 #### ROCKY Greer ([id number]) [facility] ([facility]) [address] [place] [address] Hematocrit (Bld) [Volume fraction] 44.5 % Normal 36.0-46.0 [facility] Comment on above: Performed By: #### 5 8410-2 #### ROCKY Greer ([id number]) [facility] ([facility]) [address] [place] [address] Hemoglobin (Bld) [Mass/Vol] 14.1 g/dL Normal 12.0-16.0 [facility] Comment on above: Performed By: #### 5 8410-2 #### ROCKY Greer ([id number]) [facility] ([facility]) [address] [place] [address] 28612 MCH (RBC) [Entitic mass] 30.7 pg Normal 26.0-34.0 [facility] Comment on above: Performed By: #### 5 8410-2 #### ROCKY Greer ([id number]) [facility] ([facility]) [address] [place] [address] 28730 MCHC (RBC) [Mass/Vol] 31.7 g/dL Low 32.0-36.0 [facility] Comment on above: Performed By: #### 5 8410-2 #### ROCKY Greer ([id number]) [facility] ([facility]) [address] [place] [address]9714 MCV (RBC) [Entitic vol] 97 fL Normal 80-100 [facility] Comment on above: Performed By: #### 5 8410-2 #### ROCKY Greer ([id number]) [facility] ([facility]) [address] [place] [address] 99588 Nucleated RBC/100 WBC (Bld) [Ratio] 0.0 /100 WBCs Normal 0.0-0.0 [facility] Comment on above: Performed By: #### 5 8410-2 #### ROCKY Greer ([id number]) [facility] ([facility]) [address] [place] [address] Platelets (Bld) [#/Vol] 222 x10*3/uL Normal 150-450 [facility] Comment on above: Performed By: #### 5 8410-2 #### ROCKY Greer ([id number]) [facility] ([facility]) [address] [place] [address] RBC (Bld) [#/Vol] 4.59 x10*6/uL Normal 4.00-5.20 [facility] Comment on above: Performed By: #### 5 8410-2 #### ROCKY JEFFERSON L ([id number]) [facility] ([facility]) [address] [place] [address] WBC (Bld) [#/Vol] 7.5 x10*3/uL Normal 4.4-11.3 [facility] Comment on above: Performed By: #### 5 8410-2 #### ROCKY JEFFERSON L ([id number]) [facility] ([facility]) [address] [place] [address] CT GUIDED PERCUTANEOUS BIOPS Y MEDIASTINUMon 10-09-2024 CT GUIDED PERCUTANEOUS BIOPSY MEDIASTINUM Interpreted By: Cosme Stover and Beyersdorf Conner STUDY: CT GUIDED PERCUTANEOUS BIOPSY MEDIASTINUM; 10/09/2024 11:48 am INDICATION: Signs/Symptoms:L paravertebral mass, known melanoma. COMPARISON: PET-CT 09/26/2024 ACCESSION NUMBER(S): [id number] ORDERING CLINICIAN: ALANNA PENNINGTON TECHNIQUE: INTERVENTIONALIST(S): MD [...] as stated. This study was interpreted at [place], [place]. Signed by: Cosme Stover 10/10/2024 12:58 PM Dictation workstation: [id number] Normal [facility] Coagulation tissue factor in ducedon 10-09-2024 PT Coag (PPP) [Time] 10.7 s Normal 9.8-12.4 [facility] Comment on above: Performed By: #### 5 902-2 #### ROCKY Greer ([id number]) [facility] ([facility]) [address] [place] [address] 467[address] PT Coag (PPP) [Time]on 10-09 INR Coag (PPP) [Relative time] 1.0 Normal 0.9-1.1 [facility] Comment on above: Performed By: #### 5 902-2 #### ROCKY Greer ([id number]) [facility] ([facility]) [address] [place] [address]10 Surgical pathology studyon 0 10-09-2024 Surgical pathology study Pathology report.total SEE COMMENT Surgical Pathology Case: [id number] Authorizing Provider: Alanna Pennington MD Collected: 10/09/2024 1150 Ordering Location: [facility] Received: 10/10/2024 0908 Center Pathologist: Jacqueline [...] is submitted in toto in two cassettes. [facility] AP ASR DISCLAIMER One or more of the reagents used to perform assays on this specimen MAY have contained components considered to be analyte specific reagents (ASR's). ASR's have not been cleared or approved by the U.S. Food and Drug Administration. These assays were developed and their performance characteristics determined by the Department of Pathology at [facility]. The FDA does not require this [...] and negative controls which stained appropriately. Normal [facility] MR BRAIN W AND WO IV CONTRAS Ton 09-26-2024 MR BRAIN W AND WO IV CONTRAST Interpreted By: Teri Man, STUDY: MR BRAIN W AND WO IV CONTRAST; 09/26/2024 1:19 pm INDICATION: Signs/Symptoms:melanom a. ,C43.59 Malignant melanoma of other part of trunk COMPARISON: None. ACCESSION NUMBER(S): [id number] ORDERING CLINICIAN: ALANNA PENNINGTON TECHNIQUE: Axial T2, [...] Teri Man 09/26/2024 3:25 PM Dictation workstation: [id number] [facility] MR Brain WO and W contrast I Von 09-26-2024 No demonstrated intracranial metastatic disease. No acute intracranial abnormality. Right ventriculostomy tube. Decreased ventricular size. MACRO: None Signed by: Teri Man 09/26/2024 3:25 PM Dictation workstation: [id number] [facility] Interpreted By: Teri Man, STUDY: MR BRAIN W AND WO IV CONTRAST; 09/26/2024 1:19 pm INDICATION: Signs/Symptoms:melanom a. ,C43.59 Malignant melanoma of other part of trunk COMPARISON: None. ACCESSION NUMBER(S): [id number] ORDERING CLINICIAN: ALANNA PENNINGTON TECHNIQUE: Axial T2, [...] part of trunk COMPARISON: None. ACCESSION NUMBER(S): [id number] ORDERING CLINICIAN: ALANNA PENNINGTON TECHNIQUE: Axial T2, [...] Teri Man 09/26/2024 3:25 PM Dictation workstation: [id number] [facility] Work Phone: MR Brain WO and W contrast I VOrdered By: Teri Man on 09-26-2024 [facility] Work Phone: NM PET CT WHOLE BODYon 09-[address] WHOLE BODY Interpreted By: David Vasques and Kaur Arashdeep STUDY: NM PET CT WHOLE BODY; 09/26/2024 11:08 am INDICATION: Signs/Symptoms:staging melanoma. 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 COMPARISON: None. ACCESSION NUMBER(S): [id number] ORDERING CLINICIAN: ALANNA PENNINGTON TECHNIQUE: DIVISION OF [...] (PI) Subsequent Treatment Strategy (PS) CALIBRATION: Dose Gzyrbjrkk-li-Yvpv Interval (mins): 87 min Mediastinal bloodpool SUV [...] Vigil MD. This study was interpreted at [place], [place]. Signed by: David Shah 09/26/2024 11:37 AM Dictation workstation: [id number] [facility] NM Whole body Bone Viewson 0 [...] Vigil MD. This study was interpreted at [place], [place]. Signed by: David Shah 09/26/2024 11:37 AM Dictation workstation: [id number] [facility] Interpreted By: David Harry and Kaur Arashdeep STUDY: NM PET CT WHOLE BODY; 09/26/2024 11:08 am INDICATION: Signs/Symptoms:staging melanoma. 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 COMPARISON: None. ACCESSION NUMBER(S): [id number] ORDERING CLINICIAN: LAANNA PENNINGTON TECHNIQUE: DIVISION OF NUCLEAR MEDICINE POSITRON [...] (PI) Subsequent Treatment Strategy (PS) CALIBRATION: Dose Qkgparwqb-xv-Dtom Interval (mins): 87 min Mediastinal bloodpool SUV [...] dissection on 08/22/2024. COMPARISON: None. ACCESSION NUMBER(S): [id number] ORDERING CLINICIAN: ALANNA PENNINGTON TECHNIQUE: DIVISION OF [...] (PI) Subsequent Treatment Strategy (PS) CALIBRATION: Dose Kioomppzf-kd-Dsbn Interval (mins): 87 min Mediastinal bloodpool SUV [...] Vigil MD. This study was interpreted at [facility], [place], [place]. Signed by: David Shah 09/26/2024 11:37 AM Dictation workstation: [id number] [facility] Work Phone: NM Whole body Bone ViewsOrde red By: David Shah on 09-26-2024 [facility] Work Phone: No Panel Informationon 09-26 Radiology Study observation (narrative) [facility] Work Phone: DERMPATH LAB- DERMATOPATHOLO GYon 08-07-2024 DERMPATH LAB- DERMATOPATHOLOGY Pathology report.total SEE COMMENT Dermatopathology Case: [id number] Authorizing Provider: Yanet Pacheco MD Collected: 08/07/2024 0956 Ordering Location: [facility] Received: 08/07/2024 1429 OR Pathologist: Dwight [...] Melanoma of back (Multi) C43.59 Specimen ID: [id number], [id number] Specimen Source: SKIN INCISIONAL BIOPSY Site/Location: WIDE LOCAL INCISION MIDBACK Collection Comments: SHORT STITCH SUPERIOR/ LONG STITCH LEFT Specimen ID: [id number], [id number] Specimen Source: LYMPH NODE EXCISION Site/Location: RIGHT [...] determined by the Department of Pathology at [facility]. The FDA does not require this [...] being o (more content not included)... Normal [facility] Comment on above: Order Comment: Pre-o p diagnosis: Melanoma of back (Multi) [C43.59] ECG 12-LEADon 08-07-2024 ECG 12-LEAD Ventricular Rate 66 Atrial Rate 66 P-R Interval 166 QRS Duration 82 Q-T Interval 380 QTC Calculation(Bazett) 398 P Fulton 34 R Fulton 44 T Fulton 44 QRS Count 11 Q Onset 224 P Onset 141 P Offset 195 T Offset 414 QTC Fredericia 392 Diagnosis Normal sinus rhythm Normal ECG No previous ECGs available Confirmed by Bobby Aldana ([id number]) on 08/15/2024 8:23:58 AM Normal [facility] NM LYMPHOSCINTIGRAMon 2024 NM LYMPHOSCINTIGRAM Interpreted By: Lane Aguilar, STUDY: NM LYMPHOSCINTIGRAM; 08/07/2024 8:28 am INDICATION: Signs/Symptoms:SLNB. COMPARISON: None. ACCESSION NUMBER(S): [id number] ORDERING CLINICIAN: YANET PACHECO TECHNIQUE: DIVISION OF [...] This study was analyzed and interpreted at [place], [place]. Signed by: Lane Guadalupe 08/07/2024 8:46 AM Dictation workstation: [id number] [facility] NM Lymphatic vessels Views W radionuclide intra lymphaticon 08-07-2024 Successful sentinel lymph node localization in the right axilla. This study was analyzed and interpreted at [place], [place]. Signed by: Lane Guadalupe 08/07/2024 8:46 AM Dictation workstation: [id number] [facility]ODAL Interpreted By: Lane Aguilar, STUDY: NM LYMPHOSCINTIGRAM; 08/07/2024 8:28 am INDICATION: Signs/Symptoms:SLNB. COMPARISON: None. ACCESSION NUMBER(S): [id number] ORDERING CLINICIAN: YANET PACHECO TECHNIQUE: DIVISION OF [...] am INDICATION: Signs/Symptoms:SLNB. COMPARISON: None. ACCESSION NUMBER(S): [id number] ORDERING CLINICIAN: YANET PACHECO TECHNIQUE: DIVISION OF [...] This study was analyzed and interpreted at [place], [place]. Signed by: Lane Guadalupe 08/07/2024 8:46 AM Dictation workstation: [id number] [facility] Work Phone: Radiology Study observation (narrative) [facility] Work Phone: NM Lymphatic vessels Views W radionuclide intra lymphaticOrdered By: Lane Guadalupe on 08-07-2024 [facility] Work Phone: Surgical pathology studyon 0 07-14-2024 Surgical pathology study Pathology report.total SEE COMMENT Dermatopathology Report Case: [id number] Authorizing Provider: Yanet Pacheco MD Collected: 07/14/2024 1246 Ordering Location: [facility] Received: 07/14/2024 1246 [facility] Pathologist: Ron Aragon MD Specimen: OUTSIDE BLOCK(S)/SLIDE(S), 5 SLIDES, [facility] , #[id number] (BX: 06/28/2024) Path report.final diagnosis SEE COMMENT 5 SLIDES, [facility] , #[id number] (BX: 06/28/2024) SKIN, RIGHT BACK, BIOPSY: MALIGNANT [...] A. OUTSIDE BLOCK(S)/SLIDE(S). Received for consultation from [facility] are five slides labeled #[id number] (BX: 06/28/2204) along with the corresponding pathology report. [facility] Comment on above: Order Comment: Mater ials Received: 5 SLIDES, [facility] , #[id number] (BX: 06/28/2024) IGP,APTIMA HPV,AGE GDLNon AGE GDLN ACOG TESTING Note . [facility] Comment on above: TESTS RESULT FLAG UN ITS REF RANGE LAB Clinician Provided Cytology Information Source.............Vagina No. of containers..01 ThinPrep Vial Age Algo ACOG Anabel... 01 FLAG LEGEND: L-Low Normal,H-High Normal,LL-Alert Low,HH-Alert High <-Panic Low,>-Panic High,A-Abnormal,AA-Critical Abnormal Performed at: 01 =G [address] [address] Sumaya Lorenzo MD, HPV APTIMA Negative Negative [facility] Comment on above: This nucleic acid am plification test detects fourteen high- risk HPV types (16,18,31,33,35,39,45,51,52,56,58,59,66,68) without differentiation. Performed at: = - [address] [id number] Bogger Operator: Sumaya Lorenzo MD, Phone: [phone] Performed at: [address] [id number] Bogger Operator: Sumaya Lorenzo MD, Phone: [phone] IGP, APTIMA HPV, RFX 16/18,45 Note . [facility] Comment on above: TESTS RESULT FLAG UN ITS REF RANGE LAB DIAGNOSIS: 02 NEGATIVE FOR INTRAEPITHELIAL LESION OR MALIGNANCY. THIS SPECIMEN WAS RESCREENED PART OF OUR CLOTH COLORS EXAMINER PROGRAM. Specimen adequacy: 02 Satisfactory for evaluation. Performed by: 02 Cate Shi, Academic Vice President (ASCP) QC reviewed by: 02 Moni Araiza, Academic Vice President (ASCP) . 02 Note: Note 02 The [...] High,A-Abnormal,AA-Critical Abnormal Performed at: 02 [facility] [address] [address] Sumaya Lorenzo MD, SPATULA-ALONE VAGINA [facility] Cytology Cervical or vaginal smear or scraping studyOrdered By: Jennifer Contreras on 06-09-2023 [facility] Alanine aminotransferase [En zymatic activity/volume] in Serum or PlasmaOrdered By: Damir Laughlin on 01-18-2023 ALT [Catalytic activity/Vol] 24 U/L 7-52 [facility] Albumin [Mass/volume] in Ser um or Plasma by Bromocresol green (BCG) dye binding methoOrdered By: Damir Laughlin on 01-18-2023 Albumin BCG dye [Mass/Vol] 4.3 g/dL 3.5-5.7 [facility] Alkaline phosphatase [Enzyma tic activity/volume] in Serum or PlasmaOrdered By: Damir Laughlin on 01-18-2023 ALP [Catalytic activity/Vol] 40 U/L 34-104 [facility] Aspartate aminotransferase [ Enzymatic activity/volume] in Serum or PlasmaOrdered By: Damir Laughlin on 01-18-2023 AST [Catalytic activity/Vol] 18 U/L 13-39 [facility] Basophils Auto (Bld) [#/Vol] Ordered By: Damir Laughlin on 01-18-2023 Basophils (Bld) [#/Vol] 0.1 10*3/uL 0.0-0.2 [facility] Basophils/100 WBC Auto (Bld) Ordered By: Damir Laughlin on 01-18-2023 Basophils/100 WBC (Bld) 1.0 % . [facility] Bilirubin.total [Mass/volume ] in Serum or PlasmaOrdered By: Damir Laughlin on 01-18-2023 Bilirubin [Mass/Vol] 0.5 mg/dL 0.3-1.0 [facility] Calcium [Mass/volume] in Ser um or PlasmaOrdered By: Damir Laughlin on 01-18-2023 Calcium [Mass/Vol] 9.3 mg/dL 8.6-10.3 [facility] Carbon dioxide, total [Moles /volume] in Serum or PlasmaOrdered By: Damir Laughlin on 01-18-2023 CO2 [Moles/Vol] 29.7 mmol/L 21.0-31.0 [facility] Chloride [Moles/volume] in S derrick or PlasmaOrdered By: Damir Laughlin on 01-18-2023 Chloride [Moles/Vol] 108 mmol/L 98-107 [facility] Complete Blood Count Auto Di ffon 01-18-2023 Basophils (Bld) [#/Vol] 0.1 10*3/uL Normal 0.0-0.2 [facility] Comment on above: Result Comment: PERF ORMED BY: [place] [address] PATHOLOGIST COAL TRIMMER SP WALTERS M.D. Performed By: #### C MP, CBC #### [address] Basophils/100 WBC (Bld) 1.0 % Normal . [facility] Comment on above: Performed By: #### C MP, CBC #### [address] Eosinophils (Bld) [#/Vol] 0.6 10*3/uL High 0.0-0.45 [facility] Comment on above: Performed By: #### C MP, CBC #### [address] Eosinophils/100 WBC (Bld) 8.3 % Normal . [facility] Comment on above: Performed By: #### C MP, CBC #### [address] Erythrocyte distribution width (RBC) [Ratio] 14.5 % Normal 11.9-15.3 [facility] Comment on above: Performed By: #### C MP, CBC #### [address] Hematocrit (Bld) [Volume fraction] 44.6 % Normal 34.0-46.4 [facility] Comment on above: Performed By: #### C MP, CBC #### [address] Hemoglobin (Bld) [Mass/Vol] 14.7 g/dL Normal 11.8-15.4 [facility] Comment on above: Performed By: #### C MP, CBC #### [address] Lymphocytes (Bld) [#/Vol] 2.5 10*3/uL Normal 1.00-4.8 [facility] Comment on above: Performed By: #### C MP, CBC #### [address] Lymphocytes/100 WBC (Bld) 36.0 % Normal . [facility] Comment on above: Performed By: #### C MP, CBC #### [address] MCH (RBC) [Entitic mass] 30.2 pg Normal 24.7-34.3 [facility] Comment on above: Performed By: #### C MP, CBC #### [address] MCV (RBC) [Entitic vol] 91.9 fL Normal 80-100 [facility] Comment on above: Performed By: #### C MP, CBC #### [address] Mean Corpuscular HGB Conc 32.9 g/dL Normal 32.0-35.0 [facility] Comment on above: Performed By: #### C MP, CBC #### [address] Monocytes (Bld) [#/Vol] 0.6 10*3/uL Normal 0.0-0.8 [facility] Comment on above: Performed By: #### C MP, CBC #### [address] Monocytes/100 WBC (Bld) 9.0 % Normal . [facility] Comment on above: Performed By: #### C MP, CBC #### [facility] [address] Neutrophils (Bld) [#/Vol] 3.1 10*3/uL Normal 1.8-7.7 [facility] Comment on above: Performed By: #### C MP, CBC #### [place] [address] Neutrophils/100 WBC (Bld) 45.7 % Normal . [facility] Comment on above: Performed By: #### C MP, CBC #### [place] [address] NRBC% 0.1 /100{WBC} Normal 0-0.5 [facility] Comment on above: Performed By: #### C MP, CBC #### [place] [address] Platelet mean volume (Bld) [Entitic vol] 9.0 fL Normal 6.3-10.7 [facility] Comment on above: Performed By: #### C MP, CBC #### [place] [address] Platelets (Bld) [#/Vol] 226 10*3/uL Normal 150-450 [facility] Comment on above: Performed By: #### C MP, CBC #### [facility] [address] RBC (Bld) [#/Vol] 4.86 10*6/uL Normal 3.60-5.00 [facility] Comment on above: Performed By: #### C MP, CBC #### [place] [address] WBC (Bld) [#/Vol] 6.9 10*3/uL Normal 3.8-11.6 [facility] Comment on above: Performed By: #### C MP, CBC #### [place] [address] Comprehensive Metabolic Pane yrn 01-18-2023 Albumin [Mass/Vol] 4.3 g/dL Normal 3.5-5.7 [facility] Comment on above: Performed By: #### C MP, CBC #### [place] [address] Albumin/Globulin [Mass ratio] 1.8 {ratio} Normal [facility] Comment on above: Performed By: #### C MP, CBC #### [address] ALP [Catalytic activity/Vol] 40 U/L Normal 34-104 [facility] Comment on above: Result Comment: PERF ORMED BY: [place] [address] PATHOLOGIST COAL TRIMMER SP WALTERS M.D. Performed By: #### C MP, CBC #### [address] ALT [Catalytic activity/Vol] 24 U/L Normal 7-52 [facility] Comment on above: Performed By: #### C MP, CBC #### [address] Anion gap [Moles/Vol] 9.7 mmol/L Normal 6.0-15.0 [facility] Comment on above: Performed By: #### C MP, CBC #### [facility] [address] [place] [address] AST [Catalytic activity/Vol] 18 U/L Normal 13-39 [facility] Comment on above: Performed By: #### C MP, CBC #### [facility] [address] [place] [address] [place] Bilirubin [Mass/Vol] 0.5 mg/dL Normal 0.3-1.0 [facility] Comment on above: Performed By: #### C MP, CBC #### [address] Calcium [Mass/Vol] 9.3 mg/dL Normal 8.6-10.3 [facility] Comment on above: Performed By: #### C MP, CBC #### [facility] [address] [place] [address] [place] Chloride [Moles/Vol] 108 mmol/L High 98-107 [facility] Comment on above: Performed By: #### C MP, CBC #### [place] [address] CO2 [Moles/Vol] 29.7 mmol/L Normal 21.0-31.0 [facility] Comment on above: Performed By: #### C MP, CBC #### [place] [address] Creatinine [Mass/Vol] 0.89 mg/dL Normal 0.60-1.20 [facility] Comment on above: Performed By: #### C MP, CBC #### [place] [address] GFR/1.73 sq M.predicted MDRD (S/P/Bld) [Vol rate/Area] mL/min/{1.73_m2} Normal [facility] Comment on above: Performed By: #### C MP, CBC #### [facility] [address] Globulin (S) [Mass/Vol] 2.4 g/dL Normal [facility] Comment on above: Performed By: #### C MP, CBC #### [facility] [address] [place] [address] Glucose [Mass/Vol] 85 mg/dL Normal 70-100 [facility] Comment on above: Result Comment: [facility] Glucose Reference Range is dependent on time and content of last meal. Glucose of more than 200 mg/dL in a nonstressed, ambulatory subject supports the diagnosis of Diabetes Mellitus. ADA recommended reference range Performed By: #### C MP, CBC #### [place] [address] Potassium [Moles/Vol] 4.4 mmol/L Normal 3.5-5.1 [facility] Comment on above: Performed By: #### C MP, CBC #### [place] [address] [place] [address] [place] Protein [Mass/Vol] 6.7 g/dL Normal 6.4-8.9 [facility] Comment on above: Performed By: #### C MP, CBC #### [facility] [address] Sodium [Moles/Vol] 143 mmol/L Normal 136-145 [facility] Comment on above: Performed By: #### C MP, CBC #### [facility] [address] [place] [address] [place] Urea nitrogen [Mass/Vol] 19 mg/dL Normal 7-25 [facility] Comment on above: Performed By: #### C MP, CBC #### [facility] [address] Creatinine [Mass/volume] in Serum or PlasmaOrdered By: Damir Laughlin on 01-18-2023 Creatinine [Mass/Vol] 0.89 mg/dL 0.60-1.20 [facility] Eosinophils Auto (Bld) [#/Vo l]Ordered By: Damir Laughlin on 01-18-2023 Eosinophils (Bld) [#/Vol] 0.6 10*3/uL 0.0-0.45 [facility] Eosinophils/100 WBC Auto (Bl d)Ordered By: Damir Laughlin on 01-18-2023 Eosinophils/100 WBC (Bld) 8.3 % . [facility] Erythrocyte distribution wid th Auto (RBC) [Ratio]Ordered By: Damir Laughlin on 01-18-2023 Erythrocyte distribution width (RBC) [Ratio] 14.5 % 11.9-15.3 [facility] Globulin Calc (S) [Mass/Vol] Ordered By: Damir Laughlin on 01-18-2023 Globulin (S) [Mass/Vol] 2.4 g/dL [facility] Glucose [Mass/volume] in Ser um or PlasmaOrdered By: Damir Laughlin on 01-18-2023 Glucose [Mass/Vol] 85 mg/dL 70-100 [facility] Comment on above: ADA recommended refe rence rangeRandom Glucose Reference Range is dependent on time and content of last meal. Glucose of more than 200 mg/dL in a nonstressed, ambulatory subject supports the diagnosis of Diabetes Mellitus. Hematocrit Auto (Bld) [Volum e fraction]Ordered By: Damir Laughlin on 01-18-2023 Hematocrit (Bld) [Volume fraction] 44.6 % 34.0-46.4 [facility] Hemoglobin [Mass/volume] in BloodOrdered By: Damir Laughlin on 01-18-2023 Hemoglobin (Bld) [Mass/Vol] 14.7 g/dL 11.8-15.4 [facility] Leukocytes [#/volume] correc nicki for nucleated erythrocytes in Blood by Automated counOrdered By: Damir Laughlin on 01-18-2023 WBC corrected for nucl RBC Auto (Bld) [#/Vol] 6.9 10*3/uL 3.8-11.6 [facility] Lymphocytes Auto (Bld) [#/Vo l]Ordered By: Damir Laughlin on 01-18-2023 Lymphocytes (Bld) [#/Vol] 2.5 10*3/uL 1.00-4.8 [facility] Lymphocytes/100 WBC Auto (Bl d)Ordered By: Damir Laughlin on 01-18-2023 Lymphocytes/100 WBC (Bld) 36.0 % . [facility] MCH Auto (RBC) [Entitic mass ]Ordered By: Damir Laughlin on 01-18-2023 MCH (RBC) [Entitic mass] 30.2 pg 24.7-34.3 [facility] MCHC Auto (RBC) [Mass/Vol]Or dered By: Damir Laughlin on 01-18-2023 MCHC (RBC) [Mass/Vol] 32.9 g/dL 32.0-35.0 [facility] MCV Auto (RBC) [Entitic vol] Ordered By: Damir Laughlin on 01-18-2023 MCV (RBC) [Entitic vol] 91.9 fL 80-100 [facility] Monocytes Auto (Bld) [#/Vol] Ordered By: Damir Laughlin on 01-18-2023 Monocytes (Bld) [#/Vol] 0.6 10*3/uL 0.0-0.8 [facility] Monocytes/100 WBC Auto (Bld) Ordered By: Damir Laughlin on 01-18-2023 Monocytes/100 WBC (Bld) 9.0 % . [facility] Neutrophils Auto (Bld) [#/Vo l]Ordered By: Damir Laughlin on 01-18-2023 Neutrophils (Bld) [#/Vol] 3.1 10*3/uL 1.8-7.7 [facility] Neutrophils/100 WBC Auto (Bl d)Ordered By: Damir Laughlin on 01-18-2023 Neutrophils/100 WBC (Bld) 45.7 % . [facility] No Panel InformationOrdered By: Damir Laughlin on 01-18-2023 Estimated GFR (CKD-EPI) > 60.0 mL/Min [facility] Creatinine Clearance (Chem N/A [facility] Nucleated erythrocytes [Pres ence] in Blood by Automated countOrdered By: Damir Laughlin on 01-18-2023 Nucleated RBC Auto Ql (Bld) 0.1 /100{WBC} 0-0.5 [facility] Platelet mean volume Auto (B ld) [Entitic vol]Ordered By: Damir Laughlin on 01-18-2023 Platelet mean volume (Bld) [Entitic vol] 9.0 fL 6.3-10.7 [facility] Platelets Auto (Bld) [#/Vol] Ordered By: Damir Laughlin on 01-18-2023 Platelets (Bld) [#/Vol] 226 10*3/uL 150-450 [facility] Potassium [Moles/volume] in Serum or PlasmaOrdered By: Damir Laughlin on 01-18-2023 Potassium [Moles/Vol] 4.4 mmol/L 3.5-5.1 [facility] Protein [Mass/volume] in Ser um or PlasmaOrdered By: Damir Laughlin on 01-18-2023 Protein [Mass/Vol] 6.7 g/dL 6.4-8.9 [facility] RBC Auto (Bld) [#/Vol]Ordere d By: Damir Laughlin on 01-18-2023 RBC (Bld) [#/Vol] 4.86 10*6/uL 3.60-5.00 [facility] Serum or plasma albumin/glob ulin mass ratioOrdered By: Damir Qian on 01-18-2023 Albumin/Globulin [Mass ratio] 1.8 {ratio} [facility] Serum or plasma anion gap de terminationOrdered By: Damirclaudine Laughlin on 01-18-2023 Anion gap [Moles/Vol] 9.7 mmol/L 6.0-15.0 [facility] Sodium [Moles/volume] in Ser um or PlasmaOrdered By: Damirclaudine Laughlin on 01-18-2023 Sodium [Moles/Vol] 143 mmol/L 136-145 [facility] Urea nitrogen [Mass/volume] in Serum or PlasmaOrdered By: Damirclaudine Laughlin on 01-18-2023 Urea nitrogen [Mass/Vol] 19 mg/dL 7-25 [facility] WBC Auto (Bld) [#/Vol]Ordere d By: Damir Qian on 01-18-2023 WBC (Bld) [#/Vol] 6.9 10*3/uL 3.8-11.6 [facility] Physician Referralon 023 Physician Referral [id number] 0CD:127 Normal [facility] Physician Referralon 023 Physician Referral [id number] 0CD:127 Normal [facility] PAP ACOG PANEL 2: 30 to 65on 05-08-2022 . . Normal [facility] Comment on above: Result Comment: Perf ormed at: WB Performed By: #### [id number] ####[facility] [address] [place] [address]DrWilber Barragan Age Gdln ACOG Testing 30-65 [facility] Comment on above: Performed By: #### [id number] ####[facility] [address] [place] [id number] Barragan DIAGNOSIS: Comment [facility] Comment on above: Result Comment: UNSA TISFACTORY FOR EVALUATION. Performed at: WB Performed By: #### [id number] ####[facility] [address] [place] [id number]. Tahir Barragan HPV Aptima Negative Normal Negative [facility] Comment on above: Result Comment: This nucleic acid amplification test detects fourteen high-risk HPV types (16,18,31,33,35,39,45,51,52,56,58,59,66,68) without differentiation. Performed at: =G Performed By: #### [id number] ####[facility] [address] [place] [id number]. Tahir Barragan HPV Genotype Reflex Comment Normal [facility] Comment on above: Result Comment: Crit joseph not met, HPV Genotype not performed. Performed at: WB Performed By: #### [id number] ####[facility] [address] [place], [place] [id number]. Tahir Barragan Methodology: Comment Normal [facility] Comment on above: Result Comment: This liquid based ThinPrep(R) pap test was screened with the use of an image guided system. Performed at: WB Performed By: #### [id number] ####[facility] [address] [place], [place] [address]Dr. Tahir Barragan Note: Comment Normal [facility] Comment on above: Result Comment: The Pap smear is a screening test designed to aid in the detection of premalignant and malignant conditions of the uterine cervix. It is not a diagnostic procedure and should not be used as the sole means of detecting cervical cancer. Both false-positive and false-negative reports do occur. . Performed at: WB Performed By: #### [id number] ####[facility] [address] [place] [id number]. Tahir Barragan Performed by: Comment Normal [facility] Comment on above: Result Comment: Fercho Gonzalez Academic Vice President (ASCP) Performed at: WB Performed By: #### [id number] ####[facility] [address] [place] [id number] Barragan QC reviewed by: Comment Normal [facility] Comment on above: Result Comment: Jesenia J [place], Supervisory Academic Vice President (ASCP) Performed at: WB Performed By: #### [id number] ####[facility] [address] [place] [id number]. Tahir Yung Recommendation: Comment Normal [facility] Comment on above: Result Comment: Sugg est follow up as clinically appropriate. Performed at: WB Performed By: #### [id number] ####[facility] [address] [place], [place] [address]Fv. Maricruzelder Barragan Specimen adequacy: Comment Normal [facility] Comment on above: Result Comment: Spec imen processed and examined but unsatisfactory for evaluation of epithelial abnormality because of insufficient cellularity. Performed at: WB Performed By: #### [id number] ####[facility] [address] [place], [place] [address]Wt. Tahir Barragan MG MAMM SCREEN 3D MATTEO CADon 05-06-2022 MG MAMM SCREEN 3D MATTEO CAD Patient: SHAWNA GRIGSYB Exam Date: 05/06/2022 : 1980 Gender:F Ordering : DR DELGADO BINGHAM . Admission #: [id number] Family : Order #: [id number] CLICK HERE TO VIEW EXAM RADIOLOGY REPORT [...] breast cancer at age 58. LOCATION: [facility] BREAST COMPOSITION: Heterogeneously dense,which may obscure [...] M.D. on 05/06/2022 at 15:03 Normal [facility] BUNon 04-03-2022 Urea nitrogen [Mass/Vol] 17.0 mg/dL Normal 7.0-18.0 [facility] Comment on above: Performed By: #### C LINDA, LIPID, BUN, TSH, ELEC, LIVER #### [facility] [address] [place] [address] Dr. Tahir Barragan CBC AUTO DIFFon 04-03-2022 BASO # 0.1 103/ul Normal 0.0-0.1 [facility] Comment on above: Performed By: #### C BC #### [facility] [address] [place] [address] Dr. Tahir Barragan Basophils/100 WBC (Bld) 1.2 % Normal 0.2-2.[address] [facility] Comment on above: Performed By: #### C BC #### [facility] [address] [place] [address] Dr. Tahir Barragan EO # 0.3 103/ul Normal 0.0-0.7 [facility] Comment on above: Performed By: #### C BC #### [facility] [address] [place] [address] Dr. Tahir Barragan Eosinophils/100 WBC (Bld) 4.8 % Normal 0.9-7.0 [facility] Comment on above: Performed By: #### C BC #### [facility] [address] [place] [address] Dr. Tahir Barragan Erythrocyte distribution width (RBC) [Ratio] 14.0 % Normal 11.0-15.0 [facility] Comment on above: Performed By: #### C BC #### [facility] [address] [place] [address] Dr. Tahir Barragan Hematocrit (Bld) [Volume fraction] 41.5 % Normal 36.0-48.0 [facility] Comment on above: Performed By: #### C BC #### [facility] [address] [place] [address] Dr. Tahir Barragan Hemoglobin (Bld) [Mass/Vol] 13.8 g/dL Normal 12.0-16.0 [facility] [place] [facility] Comment on above: Performed By: #### C BC #### [facility] [address] [place] [address] Dr. Tahir Barragan IG # 0.04 10e3/ul Critically high 0.00-0.03 [facility] [place] [facility] Comment on above: Performed By: #### C BC #### [facility] [address] [place] [address] Dr. Tahir Barragan IG % 0.7 % Critically high 0.0-0.5 [facility] Comment on above: Performed By: #### C BC #### [facility] [address] [place] [address] Dr. Tahir Barragan LYMPH # 2.1 103/ul Normal 1.2-3.8 [facility] Comment on above: Performed By: #### C BC #### [facility] [address] [place] [address] Dr. Tahir Barragan Lymphocytes/100 WBC (Bld) 34.1 % Normal 20.5-60.0 [facility] Comment on above: Performed By: #### C BC #### [facility] [address] [place] [address] Dr. Tahir Barragan MANUAL DIFF REQ NO Normal [facility] Comment on above: Performed By: #### C BC #### [facility] [address] [place] [address] Dr. Tahir Barragan MCH (RBC) [Entitic mass] 29.9 pg Normal 26.7-34.0 [facility] [place] [facility] Comment on above: Performed By: #### C BC #### [facility] [address] [place] [address] Dr. Tahir Barragan MCHC (RBC) [Mass/Vol] 33.3 g/dL Normal 29.9-35.2 [facility] [place] [facility] Comment on above: Performed By: #### C BC #### [facility] [address] [place] [address] Dr. Tahir Barragan MCV (RBC) [Entitic vol] 90.0 fL Normal 81.0-99.[address] [facility] Comment on above: Performed By: #### C BC #### [facility] [address] [place] [address] Dr. Tahir Barragan MONO # 0.6 103/ul Normal 0.3-0.8 [facility] Comment on above: Performed By: #### C BC #### [facility] [address] [place] [address] Dr. Tahir Barragan Monocytes/100 WBC (Bld) 9.4 % Normal 1.7-12.[address] [facility] Comment on above: Performed By: #### C BC #### [facility] [address] [place] [address] Dr. Tahir Barragan NEUT # 3.0 103/ul Normal 1.4-6.5 [facility] Comment on above: Performed By: #### C BC #### [facility] [address] [place] [address] Dr. Tahir Barragan Neutrophils/100 WBC (Bld) 49.8 % Normal 43.0-75.0 [facility] Comment on above: Performed By: #### C BC #### [facility] [address] [place] [address] Dr. Tahir Barragan Platelet mean volume (Bld) [Entitic vol] 10.6 fL Normal 9.5-13.5 [facility] Comment on above: Performed By: #### C BC #### [facility] [address] [place] [address] Dr. Tahir Barragan PLT 251 103/ul Normal 150-450 [facility] Comment on above: Performed By: #### C BC #### [facility] [address] [place] [address] Dr. Tahir Barragan RBC 4.61 106/ul Normal 4.20-5.40 [facility] Comment on above: Performed By: #### C BC #### [facility] [address] [place] [address] Dr. Tahir Barragan WBC 6.0 103/ul Normal 4.0-11.0 [facility] [place] [facility] Comment on above: Performed By: #### C BC #### [facility] [address] [place] [address] [address] Tahir Barragan CREATININEon 04-03-2022 Creatinine [Mass/Vol] 0.68 mg/dL Normal 0.55-1.02 [facility] Comment on above: Performed By: #### C LINDA, LIPID, BUN, TSH, ELEC, LIVER ####[facility] [address] [place] [address]DrWilber Barragan EGFR-AF ENGLISH >60 Normal >=60 [facility] Comment on above: Performed By: #### C LINDA, LIPID, BUN, TSH, ELEC, LIVER ####[facility] [address] [place] [address]DrWilber Barragan EGFR-NON AF ENGLISH >60 Normal >=60 [facility] Comment on above: Performed By: #### C LINDA, LIPID, BUN, TSH, ELEC, LIVER ####[facility] [address] [place] [address]Dr. Tahir Barragan ELECTROLYTESon 04-03-2022 Anion gap [Moles/Vol] 9.2 mmol/L Normal [facility] [place] [facility] Comment on above: Performed By: #### C LINDA, LIPID, BUN, TSH, ELEC, LIVER #### [facility] [address] [place] [address] [address] Tahir Barragan Chloride [Moles/Vol] 105 mmol/L Normal 98-107 [facility] [place] [facility] Comment on above: Performed By: #### C LINDA, LIPID, BUN, TSH, ELEC, LIVER #### [facility] [address] [place] [address] [address] Tahir Barragan CO2 [Moles/Vol] 29.7 mmol/L Normal 21.0-32.0 [facility] Comment on above: Performed By: #### C LINDA, LIPID, BUN, TSH, ELEC, LIVER #### [facility] [address] [place] [address] [address] Tahir Barragan Potassium [Moles/Vol] 3.9 mmol/L Normal 3.5-5.1 [facility] Comment on above: Performed By: #### C LINDA, LIPID, BUN, TSH, ELEC, LIVER #### [facility] [address] [place] [address] [address] Tahir Barragan Sodium [Moles/Vol] 140 mmol/L Normal 136-145 [facility] Comment on above: Performed By: #### C LINDA, LIPID, BUN, TSH, ELEC, LIVER #### [facility] [address] [place] [address] [address] Tahir Barragan GLYCOHEMOGLOBIN A1Con 2021 ADA RECOMMENDATION SEE BELOW Normal [facility] Comment on above: Result Comment: ADA RECOMMENDED LIMIT 4.0 - 6.0 ADA THERAPEUTIC TARGET < 7.0 ACTION SUGGESTED > 7.0 Performed By: #### A 1C #### [facility] [address] [place] [address] Dr. Tahir Barragan Glucose [Mass/Vol] 108 mg/dL Normal [facility] Comment on above: Performed By: #### A 1C #### [facility] [address] [place] [address] Dr. Tahir Barragan HbA1c (Bld) [Mass fraction] 5.4 % Normal 4.5-6.2 [facility] Comment on above: Performed By: #### A 1C #### [facility] [address] [place] [address] Dr. Tahir Barragan LIPID PROFILEon 04-03-2022 CHOL-HDL RATIO NORM SEE BELOW Normal [facility] Comment on above: Result Comment: 3.3 - 4.4 LOW RISK 4.4 - 7.1 AVERAGE RISK 7.1 - 11.0 MODERATE RISK >11.0 HIGH RISK Performed By: #### C LINDA, LIPID, BUN, TSH, ELEC, LIVER #### [facility] [address] [place] [address] Dr. Tahir Barragan Cholesterol [Mass/Vol] 177 mg/dL Normal <=200 Th [facility] Comment on above: Performed By: #### C LINDA, LIPID, BUN, TSH, ELEC, LIVER #### [facility] [address] [place] [address] Dr. Tahir Barragan Cholesterol in HDL [Mass/Vol] 69 mg/dL Critically high 40-60 [facility] Comment on above: Performed By: #### C LINDA, LIPID, BUN, TSH, ELEC, LIVER #### [facility] [address] [place] [address] [address] Tahir Barragan Cholesterol in LDL [Mass/Vol] 100.0 mg/dL Normal [facility] Comment on above: Performed By: #### C LINDA, LIPID, BUN, TSH, ELEC, LIVER #### [facility] [address] [place] [address] [address] Tahir Barragan Cholesterol.total/Génesis sterol in HDL [Mass ratio] 2.6 {ratio} Normal [facility] Comment on above: Performed By: #### C LINDA, LIPID, BUN, TSH, ELEC, LIVER #### [facility] [address] [place] [address] [address] Tahir Barragan HDL NORMAL > or = 60 mg/dl - LO W CARDIOVASCULAR RISK <40 mg/dl - HIGH CARDIOVASCULAR RISK Normal [facility] Comment on above: Performed By: #### C LINDA, LIPID, BUN, TSH, ELEC, LIVER #### [facility] [address] [place] [address] [address] Tahir Barragan LDL CALC NORMAL SEE BELOW Normal [facility] Comment on above: Result Comment: <100 mg/dl OPTIMAL 100 - 129 mg/dl NEAR OR ABOVE OPTIMAL 130 - 159 mg/dl BORDERLINE HIGH 160 - 189 mg/dl HIGH >190 mg/dl VERY HIGH Performed By: #### C LINDA, LIPID, BUN, TSH, ELEC, LIVER #### [facility] [address] [place] [address] [address] Tahir Barragan Triglyceride [Mass/Vol] 40 mg/dL Normal <=150 [facility] Comment on above: Performed By: #### C LINDA, LIPID, BUN, TSH, ELEC, LIVER #### [facility] [address] [place] [address] [address] Tahir Barragan VLDL CALC 8.0 mg/dL Normal [facility] Comment on above: Performed By: #### C LINDA, LIPID, BUN, TSH, ELEC, LIVER #### [facility] [address] [place] [address] Dr. Tahir Barragan LIVER PROFILEon 04-03-2022 Albumin [Mass/Vol] 3.9 g/dL Normal 3.4-5.0 [facility] Comment on above: Performed By: #### C LINDA, LIPID, BUN, TSH, ELEC, LIVER #### [facility] [address] [place] [address] Dr. Tahir Barragan Albumin/Globulin [Mass ratio] 1.1 {ratio} Normal [facility] Comment on above: Performed By: #### C LINDA, LIPID, BUN, TSH, ELEC, LIVER #### [facility] [address] [place] [address] Dr. Tahir Barragan ALP [Catalytic activity/Vol] 78 U/L Normal 46-116 [facility] Comment on above: Performed By: #### C LINDA, LIPID, BUN, TSH, ELEC, LIVER #### [facility] [address] [place] [address] Dr. Tahir Barragan ALT [Catalytic activity/Vol] 16 U/L Normal 14-59 [facility] Comment on above: Performed By: #### C LINDA, LIPID, BUN, TSH, ELEC, LIVER #### [facility] [address] [place] [address] Dr. Tahir Barragan AST [Catalytic activity/Vol] 9 U/L Critically low 15-37 [facility] Comment on above: Performed By: #### C LINDA, LIPID, BUN, TSH, ELEC, LIVER #### [facility] [address] [place] [address] Dr. Tahir Barragan BILI, CONJUGATED 0.1 mg/dL Normal 0.0-0.2 [facility] Comment on above: Performed By: #### C LINDA, LIPID, BUN, TSH, ELEC, LIVER #### [facility] [address] [place] [address] Dr. Tahir Barragan Bilirubin [Mass/Vol] 0.4 mg/dL Normal 0.2-1.0 [facility] Comment on above: Performed By: #### C LINDA, LIPID, BUN, TSH, ELEC, LIVER #### [facility] [address] [place] [address] [address] Tahir Barragan Globulin (S) [Mass/Vol] 3.5 g/dL Normal [facility] Comment on above: Performed By: #### C LINDA, LIPID, BUN, TSH, ELEC, LIVER #### [facility] [address] [place] [address] [address] Tahir Barragan Protein [Mass/Vol] 7.4 g/dL Normal 6.4-8.2 [facility] Comment on above: Performed By: #### C LINDA, LIPID, BUN, TSH, ELEC, LIVER #### [facility] [address] [place] [address] [address] Tahir Barragan SED RATE [facility] 2021 SED RATE 24 mm/hr Critically high <=20 [facility] Comment on above: Performed By: #### S EDR #### [facility] [address] [place] [address] [address] Tahir Barragan TSHon 04-03-2022 TSH 0.848 uIU/mL Normal 0.358-3.740 [facility] Comment on above: Performed By: #### C LINDA, LIPID, BUN, TSH, ELEC, LIVER #### [facility] [address] [place] [address] [address] Tahir Barragan Activated partial thrombopla stin time (aPTT) in platelet poor plasma by coagulation aOrdered By: Damir Laughlin on 10-08-2021 aPTT Coag (PPP) [Time] 30.3 s 25.1-36.5 [facility] Automated epithelial cells c ount in urine sediment (number/area)Ordered By: Damir Laughlin on 10-08-2021 Epithelial cells Auto (Urine sed) [#/Area] None seen [HPF] [facility] Automated erythrocytes count in urine sediment (number/area)Ordered By: Damir Laughlin on 10-08-2021 RBC Auto (Urine sed) [#/Area] None seen [HPF] [facility] Automated leukocytes count i n urine sediment (number/area)Ordered By: Damir Laughlin on 10-08-2021 WBC Auto (Urine sed) [#/Area] None seen [HPF] [facility] Automated urine hyaline cast s count (number/volume)Ordered By: Damir Laughlin on 10-08-2021 Hyaline casts Auto (U) [#/Vol] None seen [LPF] [facility] Basophils Auto (Bld) [#/Vol] Ordered By: Damir Laughlin on 10-08-2021 Basophils (Bld) [#/Vol] 0.1 10*3/uL 0.0-0.2 [facility] Basophils/100 WBC Auto (Bld) Ordered By: Damir Laughlin on 10-08-2021 Basophils/100 WBC (Bld) 1.0 % [facility] Bilirubin Test strip Ql (U)O rdered By: Damir Laughlin on 10-08-2021 Bilirubin Ql (U) Negative Negative [facility] Blood hemoglobin measurement (mass/volume)Ordered By: Damir Laughlin on 10-08-2021 Hemoglobin (Bld) [Mass/Vol] 12.9 g/dL 11.8-15.4 [facility] Blood leukocytes automated c ount (number/volume)Ordered By: Damir Laughlin on 10-08-2021 WBC (Bld) [#/Vol] 7.1 10*3/uL 4.5-11.0 [facility] Body fluid albumin measureme nt (mass/volume)Ordered By: Monroe Whitaker on 10-08-2021 Albumin (Body fld) [Mass/Vol] 4.1 g/dL 3.2-5.5 [facility] Color Auto (U)Ordered By: Bebeto Laughlin on 10-08-2021 Color (U) Yellow Yellow [facility] Creatine kinase [Enzymatic a ctivity/volume] in Serum or PlasmaOrdered By: Monroe Whitaker on 10-08-2021 CK [Catalytic activity/Vol] 123 U/L 22-269 [facility] Creatinine and Glomerular fi ltration rate.predicted panel (S/P/Bld)Ordered By: Monroe Whitaker on 10-08-2021 Creatinine [Mass/Vol] 0.78 mg/dL 0.44-1.03 Fir [facility] Eosinophils Auto (Bld) [#/Vo l]Ordered By: Damir Laughlin on 10-08-2021 Eosinophils (Bld) [#/Vol] 0.4 10*3/uL 0.0-0.45 [facility] Eosinophils/100 WBC Auto (Bl d)Ordered By: Damir Laughlin on 10-08-2021 Eosinophils/100 WBC (Bld) 5.1 % [facility] Erythrocyte distribution wid th Auto (RBC) [Ratio]Ordered By: Damir Laughlin on 10-08-2021 Erythrocyte distribution width (RBC) [Ratio] 15.0 % 11.9-15.3 [facility] Erythrocyte sedimentation ra te by Photometric methodOrdered By: Damir Laughlin on 10-08-2021 ESR Photometric method (Bld) [Velocity] 15 mm/hr 0-19 [facility] Estimated glomerular filtrat ion rate (GFR) non- AmericanOrdered By: Monroe Whitaker on 10-08-2021 GFR/1.73 sq M.predicted among non-blacks MDRD (S/P/Bld) [Vol rate/Area] > 60 mL/Min [facility] Globulin Calc (S) [Mass/Vol] Ordered By: Monroe Whitaker on 10-08-2021 Globulin (S) [Mass/Vol] 2.2 g/dL [facility] Glucose mean value [Mass/vol ume] in Blood Estimated from glycated hemoglobinOrdered By: Monroe Whitaker on 10-08-2021 Average glucose Estimated from glycated hemoglobin (Bld) [Mass/Vol] 108 mg/dL [facility] Hematocrit Auto (Bld) [Volum e fraction]Ordered By: Damir Laughlin on 10-08-2021 Hematocrit (Bld) [Volume fraction] 38.6 % 34.0-46.4 [facility] Hemoglobin A1c percentageOrd ered By: Monroe Whitaker on 10-08-2021 HbA1c (Bld) [Mass fraction] 5.4 % 4.3-5.6 [facility] Comment on above: Increased risk for d iabetes: 5.7 - 6.4 diabetes: >6.4 glycemic control for adults with diabetes: <7.0 Ketones Auto test strip (U) [Mass/Vol]Ordered By: Damir Laughlin on 10-08-2021 Ketones (U) [Mass/Vol] Negative Negative Fi [facility] - CoagulationOrde red By: Damir Laughlin on 10-08-2021 PT Coag (PPP) [Time] 11.7 s 9.0-12.9 [facility] - Hematology and Cell countsOrdered By: Damir Laughlin on 10-08-2021 Nucleated RBC/100 WBC (Bld) [Ratio] 0.0 % 0-0.5 [facility] Lymphocytes Auto (Bld) [#/Vo l]Ordered By: Damir Laughlin on 10-08-2021 Lymphocytes (Bld) [#/Vol] 2.2 10*3/uL 1.00-4.8 [facility] Lymphocytes/100 WBC Auto (Bl d)Ordered By: Damir Laughlin on 10-08-2021 Lymphocytes/100 WBC (Bld) 31.5 % [facility] MCH Auto (RBC) [Entitic mass ]Ordered By: Damir Laughlin on 10-08-2021 MCH (RBC) [Entitic mass] 30.2 pg 24.7-34.3 [facility] MCHC Auto (RBC) [Mass/Vol]Or dered By: Damir Laughlin on 10-08-2021 MCHC (RBC) [Mass/Vol] 33.3 g/dL 32.0-35.0 [facility] MCV Auto (RBC) [Entitic vol] Ordered By: Damir Laughlin on 10-08-2021 MCV (RBC) [Entitic vol] 90.7 fL 80-100 [facility] Monocytes Auto (Bld) [#/Vol] Ordered By: Damir Laughlin on 10-08-2021 Monocytes (Bld) [#/Vol] 0.5 10*3/uL 0.0-0.8 [facility] Monocytes/100 WBC Auto (Bld) Ordered By: Damir Laughlin on 10-08-2021 Monocytes/100 WBC (Bld) 7.5 % [facility] Neutrophils Auto (Bld) [#/Vo l]Ordered By: Damir Laughlin on 10-08-2021 Neutrophils (Bld) [#/Vol] 3.9 10*3/uL 1.8-7.7 [facility] Neutrophils/100 WBC Auto (Bl d)Ordered By: Damir Lauglhin on 10-08-2021 Neutrophils/100 WBC (Bld) 54.9 % [facility] Nitrite Test strip Ql (U)Ord ered By: Damir Laughlin on 10-08-2021 Nitrite Ql (U) Negative Negative [facility] No Panel InformationOrdered By: Monroe Whitaker on 10-08-2021 Estimated GFR () > 60 mL/Min [facility] Comment on above: GFR estimated refere nce range: According to KDOQI guidelines, <60 ml/min/1.73m2 is sufficient to diagnose a patient with chronic kidney disease. Pharmacy Creatinine Clearance (Chem N/A [facility] Platelet mean volume Auto (B ld) [Entitic vol]Ordered By: Damir Laughlin on 10-08-2021 Platelet mean volume (Bld) [Entitic vol] 9.7 fL 6.3-10.7 [facility] Platelet poor plasma interna tional normalized ratio (INR) by coagulation assay (relatOrdered By: Damir Laughlin on 10-08-2021 INR Coag (PPP) [Relative time] 1.0 {INR} [facility] Comment on above: INR Therapeutic [...] 10-08-2021 Platelets (Bld) [#/Vol] 226 10*3/uL 150-450 [facility] Protein Auto test strip (U) [Mass/Vol]Ordered By: Damir Laughlin on 10-08-2021 Protein (U) [Mass/Vol] Negative [facility] [Mass/volume] in Ser um or PlasmaOrdered By: Monroe Whitaker on 10-08-2021 Protein [Mass/Vol] 6.3 g/dL 6.1-7.9 [facility] RBC Auto (Bld) [#/Vol]Ordere d By: Damir Laughlin on 10-08-2021 RBC (Bld) [#/Vol] 4.25 10*6/uL 3.60-5.00 [facility] Serum or plasma C reactive p rotein measurement (mass/volume)Ordered By: Damir Laughlin on 10-08-2021 CRP [Mass/Vol] 0.5 mg/dL 0.0-1.0 [facility] Serum or plasma alanine rivera otransferase measurement without P-5'-P (enzymatic activiOrdered By: Monroe Whitaker on 10-08-2021 ALT No additional P-5'-P [Catalytic activity/Vol] 20 U/L 10-60 [facility] Serum or plasma albumin/glob ulin mass ratioOrdered By: Monroe Whitaker on 10-08-2021 Albumin/Globulin [Mass ratio] 1.9 {ratio} [facility] Serum or plasma alkaline marya sphatase measurement (enzymatic activity/volume)Ordered By: Monroe Whitaker on 10-08-2021 ALP [Catalytic activity/Vol] 48 U/L 32-92 [facility] Serum or plasma aspartate am inotransferase measurement (enzymatic activity/volume)Ordered By: Monroe Whitaker on 10-08-2021 AST [Catalytic activity/Vol] 17 U/L 10-42 [facility] Serum or plasma calcium marcy urement (mass/volume)Ordered By: Monroe Whitaker on 10-08-2021 Calcium [Mass/Vol] 9.2 mg/dL 8.2-10.2 [facility] Serum or plasma chloride fabiola surement (moles/volume)Ordered By: Monroe Whitaker on 10-08-2021 Chloride [Moles/Vol] 105 mmol/L 95-114 [facility] Serum or plasma glucose marcy urement (mass/volume)Ordered By: Monroe Whitaker on 10-08-2021 Glucose [Mass/Vol] 92 mg/dL 70-100 [facility] Comment on above: ADA recommended refe rence range Random Glucose Reference Range is dependent on time and content of last meal. Glucose of more than 200 mg/dL in a nonstressed, ambulatory subject supports the diagnosis of Diabetes Mellitus. Serum or plasma potassium me asurement (moles/volume)Ordered By: Monroe Whitaker on 10-08-2021 Potassium [Moles/Vol] 4.0 mmol/L 3.5-5.1 [facility] Serum or plasma sodium measu rement (moles/volume)Ordered By: Monroe Whitaker on 10-08-2021 Sodium [Moles/Vol] 138 mmol/L 136-146 [facility] Serum or plasma total biliru bin measurement (mass/volume)Ordered By: Monroe Whitaker on 10-08-2021 Bilirubin [Mass/Vol] 0.7 mg/dL 0.3-1.2 [facility] Serum or plasma total carbon dioxide measurement (moles/volume)Ordered By: Monroe Whitaker on 10-08-2021 CO2 [Moles/Vol] 22.1 mmol/L 22.0-30.0 [facility] Serum or plasma urea nitroge n measurement (mass/volume)Ordered By: Monroe Whitaker on 10-08-2021 Urea nitrogen [Mass/Vol] 15 mg/dL 9- [facility] Specific gravity Auto test s trip (U) [Rel density]Ordered By: Damir Laughlin on 10-08-2021 Specific gravity (U) [Rel density] 1.005 1.001-1.030 [facility] TSH DL <= 0.005 mIU/L QnOrde red By: Damir Laughlin on 10-08-2021 TSH Qn 0.65 m[IU]/L 0.45-5.33 [facility] Thyroxine (T4) free [Mass/vo lume] in Serum or PlasmaOrdered By: Damir Laughlin on 10-08-2021 Free T4 [Mass/Vol] 1.29 ng/dL 0.61-1.12 [facility] Urine bacteria detection by automated methodOrdered By: Damir Laughlin on 10-08-2021 Bacteria Auto Ql (U) None seen None Seen [facility] Urine clarity by refractomet ry automatedOrdered By: Damir Laughlin on 10-08-2021 Clarity Refractometry automated (U) Clear Clear [facility] Urine glucose measurement by automated test strip (mass/volume)Ordered By: Damir Laughlin on 10-08-2021 Glucose Auto test strip (U) [Mass/Vol] Normal mg/dL Normal [facility] Urine hemoglobin detection b y automated test stripOrdered By: Damir Laughlin on 10-08-2021 Hemoglobin Auto test strip Ql (U) Negative Negative [facility] Urine leukocyte esterase det ection by automated test stripOrdered By: Damir Laughlin on 10-08-2021 Leukocyte esterase Auto test strip Ql (U) Negative Negative [facility] Urobilinogen Auto test strip (U) [Mass/Vol]Ordered By: Damir Laughlin on 10-08-2021 Urobilinogen (U) [Mass/Vol] Normal mg/dL Normal [facility] pH Auto test strip (U)Ordere d By: Damir Laughlin on 10-08-2021 pH (U) 7.5 [pH] 5.0-9.0 [facility] Vital Signs Date Time Vital Sign Value Performing Clinician Facility 01-16-2025 09:41-0400 Diastolic blood pressure 112 mm[Hg] Monroe Whitaker JR Work Phone: [facility] 01-16-2025 09:41-0400 Heart rate 91 /min Monroe Whitaker JR Work Phone: [facility] 01-16-2025 09:41-0400 Systolic blood pressure 173 mm[Hg] Monroe Whitaker JR Work Phone: [facility] 01-16-2025 09:28-0400 Body height 153.67 cm Monroe Whitaker JR Work Phone: [facility] 01-16-2025 09:28-0400 Body mass index (BMI) [Ratio] 33.2 kg/m2 Monroe Whitaker JR Work Phone: [facility] 01-16-2025 09:28-0400 Body weight 78.47 kg Monroe Whitaker JR Work Phone: [facility] 12-08-2024 10:48-0400 Body height 153.7 cm Harsha Ojeda MD Work Phone: [facility] 12-08-2024 10:48-0400 Body mass index (BMI) [Ratio] 32.27 kg/m2 Harsha Ojeda MD Work Phone: 4([phone])455-461406 [place] [address] 12-08-2024 10:48-0400 Body temperature 96.8 [degF] Harsha Ojeda MD Work Phone: 6(059)470-976406 [place] [address] 12-08-2024 10:48-0400 Body weight 76.2 kg Harsha Ojeda MD Work Phone: 9(067)931-265706 [place] [address] 12-08-2024 10:48-0400 Diastolic blood pressure 96 mm[Hg] Harsha Ojeda MD Work Phone: 4(834)411-319994 [place] [address] 12-08-2024 10:48-0400 Heart rate 101 /min Harsha Ojeda MD Work Phone: 1(602)234-882706 [place] [address] 12-08-2024 10:48-0400 SaO2% (BldA) [Mass fraction] 98 % Harsha Ojeda MD Work Phone: 6(899)186-037706 [place] [address] 12-08-2024 10:48-0400 Systolic blood pressure 145 mm[Hg] Harsha Ojeda MD Work Phone: 7(303)523-673306 [place] [address] 11-21-2024 11:00-0400 Diastolic blood pressure 61 mm[Hg] Harsha Ojeda MD Work Phone: [facility] 11-21-2024 11:00-0400 Heart rate 96 /min Harsha Ojeda MD Work Phone: 8(809)820-523306 [place] [address] 11-21-2024 11:00-0400 Respiratory rate 17 /min Harsha Ojeda MD Work Phone: 3(111)279-354406 [place] [address] 11-21-2024 11:00-0400 SaO2% (BldA) [Mass fraction] 94 % Harsha Ojeda MD Work Phone: 8(233)277-944706 [place] [address] 11-21-2024 11:00-0400 Systolic blood pressure 103 mm[Hg] Harsha Ojeda MD Work Phone: [facility] 11-21-2024 10:00-0400 Body temperature 98.2 [degF] Harsha Ojeda MD Work Phone: [facility] 11-21-2024 08:00-0400 Body mass index (BMI) [Ratio] 30.9 kg/m2 Harsha Ojeda MD Work Phone: [facility] 11-21-2024 08:00-0400 Body weight 73 kg Harsha Ojeda MD Work Phone: [facility] 11-20-2024 11:00-0400 Body height 153.7 cm Harsha Ojeda MD Work Phone: [facility] 10-09-2024 12:30-0400 Diastolic blood pressure 69 mm[Hg] [address] 10-09-2024 12:30-0400 Heart rate 68 /min [address] 10-09-2024 12:30-0400 Respiratory rate 16 /min [address] 10-09-2024 12:30-0400 SaO2% (BldA) [Mass fraction] 98 % [address] 10-09-2024 12:30-0400 Systolic blood pressure 115 mm[Hg] [address] 10-09-2024 09:05-0400 Body temperature 98.6 [degF] [address] 09-06-2024 10:02-0400 Body height 154.7 cm Alanna Pennington MD Work Phone: [facility] 09-06-2024 10:02-0400 Body mass index (BMI) [Ratio] 31.97 kg/m2 Alanna Pennington MD Work Phone: [facility] 09-06-2024 10:02-0400 Body temperature 97 [degF] Alanna Pennington MD Work Phone: [facility] 09-06-2024 10:02-0400 Body weight 76.52 kg Alanna Pennington MD Work Phone: [facility] 09-06-2024 10:02-0400 Diastolic blood pressure 85 mm[Hg] Alanna Pennington MD Work Phone: [facility] 09-06-2024 10:02-0400 Heart rate 85 /min Alanna Pennington MD Work Phone: [facility] 09-06-2024 10:02-0400 Respiratory rate 16 /min Alanna Pennington MD Work Phone: [facility] 09-06-2024 10:02-0400 SaO2% (BldA) [Mass fraction] 96 % Alanna Pennington MD Work Phone: [facility] 09-06-2024 10:02-0400 Systolic blood pressure 135 mm[Hg] Alanna Pennington MD Work Phone: [facility] 08-07-2024 13:17-0400 Body temperature 97.2 [degF] Yanet Pacheco MD Work Phone: [facility] 08-07-2024 13:17-0400 Diastolic blood pressure 74 mm[Hg] Yanet Pacheco MD Work Phone: [facility] 08-07-2024 13:17-0400 Heart rate 70 /min Yanet Pacheco MD Work Phone: [facility] 08-07-2024 13:17-0400 Respiratory rate 16 /min Yanet Pacheco MD Work Phone: [facility] 08-07-2024 13:17-0400 SaO2% (BldA) [Mass fraction] 98 % Yanet Pacheco MD Work Phone: [facility] 08-07-2024 13:17-0400 Systolic blood pressure 146 mm[Hg] Yanet Pacheco MD Work Phone: [facility] 08-07-2024 06:37-0400 Body height 152.4 cm Yanet Pacheco MD Work Phone: [facility] 08-07-2024 06:37-0400 Body mass index (BMI) [Ratio] 31 kg/m2 Yanet Pacheco MD Work Phone: [facility] 08-07-2024 06:37-0400 Body weight 72 kg Yanet Pacheco MD Work Phone: [facility] 07-18-2024 11:21-0500 Body height 153.1 cm Yanet Pacheco MD Work Phone: [facility] 07-18-2024 11:21-0500 Body mass index (BMI) [Ratio] 31.91 kg/m2 Yanet Pacheco MD Work Phone: [facility] 07-18-2024 11:21-0500 Body temperature 97 [degF] Yanet Pacheco MD Work Phone: [facility] 07-18-2024 11:21-0500 Body weight 74.8 kg Yanet Pacheco MD Work Phone: [facility] 07-18-2024 11:21-0500 Diastolic blood pressure 80 mm[Hg] Yanet Pacheco MD Work Phone: [facility] 07-18-2024 11:21-0500 Heart rate 90 /min Yanet Pacheco MD Work Phone: [facility] 07-18-2024 11:21-0500 Respiratory rate 18 /min Yanet Pacheco MD Work Phone: [facility] 07-18-2024 11:21-0500 SaO2% (BldA) [Mass fraction] 97 % Yanet Pacheco MD Work Phone: [facility] 07-18-2024 11:21-0500 Systolic blood pressure 127 mm[Hg] Yanet Pacheco MD Work Phone: [facility] 06-13-2024 08:33-0500 Body mass index (BMI) [Ratio] 31.84 kg/m2 Talon Treva DO Work Phone: [facility] 06-13-2024 08:33-0500 Body weight 74.57 kg Talon Treva DO Work Phone: [facility] 06-13-2024 08:33-0500 Diastolic blood pressure 82 mm[Hg] Talon Treva DO Work Phone: [facility] 06-13-2024 08:33-0500 Systolic blood pressure 120 mm[Hg] Talon Treva DO Work Phone: [facility] Healthcare Encounters Encounter Date Encounter Type Care Provider Facility Start: 01-16-2025 End: 01-16-2025 ambulatory Monroe Whitaker JR [facility] Phone[facility] Work Phone: Start: 01-16-2025 End: 01-16-2025 Patient encounter procedure Maria Child 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 -[employer] [facility] Work Phone: Start: 12-08-2024 End: 12-08-2024 Postop follow up visit related to original px Harsha Ojeda MD Work Phone: [facility] Comment on above: Neurofibroma of thor ax (Primary Dx) Start: 12-08-2024 End: 12-08-2024 Subsequent hospital visit by physician Kimberlee X-Ray [facility] Comment on above: Mediastinal mass Start: 12-08-2024 End: 12-08-2024 ambulatory HARSHA OJEDA [facility] Start: 11-20-2024 End: 11-21-2024 Evaluation and management of inpatient Harsha Ojeda MD Work Phone: [facility] Comment on above: Neurofibroma of thor ax (Primary Dx); Acute postoperative pain Start: 11-19-2024 Evaluation and manag ement of inpatient HARSHA OJEDA [facility] Start: 11-02-2024 End: 11-02-2024 ambulatory [facility] Start: 10-23-2024 End: 10-23-2024 Office outpatient visit 40 minutes Alanna Pennington MD Work Phone: [facility] Comment on above: Melanoma of back (Mu lti) Start: 10-23-2024 End: 10-23-2024 ambulatory [facility] Start: 10-13-2024 End: 10-13-2024 ambulatory HARSHA [facility] Start: 10-09-2024 End: 10-09-2024 Subsequent hospital visit by physician Dede [address] [facility] Comment on above: Melanoma of back (Mu lti) Start: 10-09-2024 End: 10-09-2024 ambulatory [facility] Start: 10-04-2024 End: 10-04-2024 Office outpatient visit 40 minutes Alanna Pennington MD Work Phone: [facility] Comment on above: Melanoma of back (Mu lti) (Primary Dx) Start: 10-04-2024 End: 10-04-2024 ambulatory [facility] Start: 09-29-2024 End: 09-29-2024 Office outpatient visit 40 minutes Alanna Pennington MD Work Phone: [facility] Comment on above: Melanoma of back (Mu lti) Start: 09-29-2024 End: 09-29-2024 ambulatory [facility] Start: 09-26-2024 End: 09-26-2024 Subsequent hospital visit by physician Dede [id number] [employer] [facility] Comment on above: Melanoma of back (Mu lti) Arrived Start: 09-26-2024 End: 09-26-2024 ambulatory [facility] Start: 09-06-2024 End: 09-06-2024 Office outpatient new 60 minutes Alanna Pennington MD Work Phone: [facility] Comment on above: Melanoma of back (Mu lti) Start: 09-06-2024 End: 09-07-2024 ambulatory ALANNA PENNINGTON [facility] Start: 08-29-2024 End: 08-29-2024 Postop follow up visit related to original px Yanet Pacheco MD Work Phone: [facility] Comment on above: Melanoma of back (Mu lti) (Primary Dx) Start: 08-29-2024 End: 08-29-2024 ambulatory YANET Almaguer [facility] Start: 08-07-2024 End: 08-07-2024 ambulatory [facility] Start: 08-07-2024 End: 08-07-2024 Subsequent hospital visit by physician Kimberlee Jensen [facility] Comment on above: Arrived Melanoma of back (Mu lti) Start: 08-07-2024 End: 08-07-2024 Subsequent hospital visit by physician Yanet Pacheco MD Work Phone: [facility] Comment on above: Melanoma of back (Mu lti) (Primary Dx) Start: 07-19-2024 ambulatory YANET PACHECO [facility] Start: 07-18-2024 End: 07-18-2024 Office outpatient new 45 minutes Yanet Pacheco MD Work Phone: [facility] Comment on above: Melanoma of back (Mu lti) (Primary Dx) Start: 07-18-2024 End: 07-18-2024 ambulatory YANET BAUTISTAEHN [facility] Start: 06-13-2024 End: 06-13-2024 Bamboo flowsheet [...] Start: 01-18-2023 End: 01-18-2023 ambulatory Monroe Whitaker Facility:[facility] Start: 01-18-2023 End: 01-18-2023 ambulatory JR Monroe Whitaker Work Phone: [facility] Work Phone: Start: 01-18-2023 End: 01-18-2023 Patient encounter procedure JR Monroe Whitaker Work Phone: [facility] [address] Work Phone: Start: 01-04-2023 ambulatory MONROE WHITAKER Facility :[facility] Start: 05-06-2022 End: 05-07-[address] DELGADO BINGHAM Facility:[facility] Start: 04-28-2022 End: 04-28-[address] DELGADO BINGHAM Facility:[facility] Start: 04-07-2022 Encounter for genera l adult medical examination without abnormal findings DR MONROE WHITAKER [facility] Start: 04-03-2022 End: 04-04-[address] MONROE WHITAKER Facility:[facility] Start: 04-03-2022 End: 04-04-2022 Encounter for general adult medical examination without abnormal findings DR MONROE WHITAKER Facility:[facility] Start: 12-09-2021 End: 12-10-2021 ambulatory NIKKI KENNEY Facility:[facility] Start: 10-08-2021 End: 10-08-2021 Patient encounter procedure MD Emmanuel Laughlin Work Phone: [facility] [address] Start: 09-30-2021 End: 09-30-2021 Patient encounter procedure MD Emmanuel Laughlin Work Phone: [facility] [address] Procedures Date Procedure Procedure Detail Performing Clinician Start: 11-21-2024 Radiologic exam ches t single view Partha Rocha 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-[employer] WORK[employer] Work Phone: Start: 11-21-2024 Radiologic exam ches t single view Arielle Shah 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-[employer] WORK[employer] Work Phone: Start: 11-21-2024 Basic metabolic pane l calcium total Arielle Shah 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-[employer] WORK[employer] Work Phone: Start: 11-20-2024 PULSE OXIMETRY, SPOT Ra kirsten Shah 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-[employer] WORK[employer] Work Phone: Start: 11-20-2024 Ecg routine ecg w/le ast 12 lds trcg only w/o i&r Arielle Shah 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-[employer] WORK[employer] Work Phone: Start: 11-20-2024 PULSE OXIMETRY, SPOT Ra kirsten Shah 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-[employer] WORK[employer] Work Phone: Start: 11-20-2024 Radiologic exam ches t single view Arielle Shah 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-[employer] WORK[employer] Work Phone: Start: 11-20-2024 PULSE OXIMETRY, CONTINUOUS [...] DTaP/Tdap/Td Vaccines (2 - Td or Tdap) [facility] Start: 2028 Zoster Vaccines (1 of 2) Zoster Vaccines (1 of 2) [facility] Start: 06-09-2028 Screening for malignant neoplasm of cervix [facility] Start: 11-22-2027 Diabetes mellitus screening Diabetes Screening [facility] Start: 06-13-2027 Screening for malignant neoplasm of cervix [facility] Start: 06-18-2025 End: 06-18-2025 Patient encounter procedure 06/18/2025 8:30 AM EST Office Visit [facility] [address] [place] [id number] Talon Tilley, DO [address] [place] [address] [facility] Start: 06-14-2025 Yearly Adult Physical Yearly Adult Physical [facility] Start: 05-31-2025 Screening for malignant neoplasm of breast Mammogram [facility] Start: 04-24-2025 End: 10-23-2025 Creatinine [Mass/volume] in Serum or Plasma Creatinine Lab Routine Melanoma of back (Multi) Expected: 04/24/2025 (Approximate), Expires: 10/23/2025 [facility] Service Area Work Phone: Comment on above: Expected: 04/24/2025 (Approximate), Expi res: 10/23/2025 Start: 04-24-2025 End: 10-23-2025 CT Chest and Abdomen and Pelvis W contrast IV CT chest abdomen pelvis w IV contrast Imaging Routine Melanoma of back (Multi) Expected: 04/24/2025, Expires: 10/23/2025 [facility] Work Phone: Comment on above: Expected: 04/24/2025, Expires: Start: 01-22-2025 Influenza vaccination [facility] Start: 12-08-2024 End: 12-08-2024 Patient encounter procedure 12/08/2024 11:30 AM EDT Office Visit [facility] [address] [phone] [place] [address] [place] [address] [facility] Start: 11-06-2024 End: 11-06-2024 Admission to same day surgery center 11/06/2024 7:05 AM EDT - 11/06/2024 9:55 AM EDT [facility] [address] [place] [address] [place] [address] [place] [address] Robotic assisted posteiror mediastinal mass resection - left chest [91637 (CPT )] [facility] Comment on above: Robotic assisted posteiror mediastinal m ass resection - left chest [[id number] (CPT )] Start: 11-06-2024 Subsequent hospital visit by physician 11/06/2024 7:05 AM EDT Hospital Encounter [facility] [address] [place] [address] [place] [address] [place] [address] [facility] Start: 11-06-2024 End: 11-06-2024 Thoracoscopy w/exc mediastinal cyst tumor/mass EXCISION, TISSUE, MEDIASTINUM, ROBOT-ASSISTED Neurofibroma of thorax 11/06/2024 7:05 AM EDT [facility] Start: 11-01-2024 End: 11-01-2024 Patient encounter procedure 11/01/2024 9:00 AM EDT Office Visit [facility] [address] [place] [address] Maria Rice PA [address] [place] [address] [facility] Start: 10-23-2024 End: 10-23-2024 Telemedicine consultation with patient 10/23/2024 4:40 PM EDT Telemedicine [facility] [address] [facility] 2nd [place] [phone] [place] [address] [place] [address] [facility] Start: 10-13-2024 End: 10-13-2024 Patient encounter procedure 10/13/2024 1:45 PM EDT Office Visit [facility] [address] [phone] [place] [address] [place] [address] [facility] Start: 10-04-2024 End: 10-04-2024 Telemedicine consultation with patient [facility] Start: 10-04-2024 End: 10-04-2025 Consult to Interventional Radiology Consult to Interventional Radiology Imaging STAT Melanoma of back (Multi) Expected: 10/04/2024, Expires: 10/04/2025 [facility] Service Area Work Phone: Comment on above: Expected: 10/04/2024, Expires: Start: 09-06-2024 End: 09-06-2025 MR Brain WO and W contrast IV MR brain w and wo IV contrast Imaging Routine Melanoma of back (Multi) Expected: 09/06/2024, Expires: 09/06/2025 [facility] Work Phone: Comment on above: Expected: 09/06/2024, Expires: Start: 09-06-2024 End: 09-06-2025 NM Whole body Bone Views NM PET CT whole body Imaging Routine Melanoma of back (Multi) Expected: 09/06/2024, Expires: 09/06/2025 [facility] Service Area Work Phone: Comment on above: Expected: 09/06/2024, Expires: Start: 08-07-2024 Subsequent hospital visit by physician 08/07/2024 Hospital Encounter [facility] [address] [place] [phone] [place] [address] [address] [place] [address] [facility] Start: 07-18-2024 End: 07-18-2025 NM Lymphatic vessels Views W radionuclide intra lymphatic NM lymphoscintigram Imaging Routine Melanoma of back (Multi) Expected: 07/18/2024, Expires: 07/18/2025 [facility] Service Area Work Phone: Comment on above: Expected: 07/18/2024, Expires: Start: 06-13-2024 End: 06-13-2024 Patient encounter procedure 06/13/2024 8:30 AM EST Office Visit [facility] [address] [place] [address] Talon Tilley DO [address] [place] [address] Arrived [facility] Comment on above: Arrived Start: 01-23-2024 COVID-19 Vaccine () COVID-19 Vaccine () [facility] Start: 01-23-2024 COVID-19 Vaccine () COVID-19 Vaccine () [facility] Start: 01-23-2024 Influenza vaccination Influenza Vaccine (#1) [facility] Start: 05-06-2023 Screening for malignant neoplasm of breast Mammogram [facility] Start: 08-12-1999 Screening for malignant neoplasm of cervix HPV/Cotest [facility] Start: 1997 Hepatitis B Vaccines (1 of 3 - 19+ 3-dose series) Hepatitis B Vaccines (1 of 3 - 19+ 3-dose series) [facility] Start: 1996 Diabetes mellitus screening Diabetes Screening [facility] Start: 1996 Hepatitis C screening Hepatitis C Screening [facility] Start: 08-12-1979 MMR Vaccines (1 of 1 - Standard series) MMR Vaccines (1 of 1 - Standard series) [facility] Start: 02-11-1979 Examination of skin Derm Melanoma Skin Check [facility] Start: 1978 HIV screening HIV Screening [facility] Start: 1978 Lipid panel Lipid Panel [facility] Start: 1978 Screening for malignant neoplasm of colon [facility] Start: 1978 Skin Cancer Screening Skin Cancer Screening [facility] Start: 1978 Yearly Adult Physical Yearly Adult Physical [facility] Aldolase measurement [facility] Work Phone: aPTT.lupus sensitive (LA screen) [facility] Work Phone: aPTT.lupus sensitive W excess phospholipid actual/Normal (normalized LA confirm) [facility] Work Phone: aPTT.lupus sensitive/aPTT.lupus sensitive W excess phospholipid (screen to confirm ra [facility] Work Phone: End: 11-25-2024 Basic metabolic 2000 panel - Serum or Plasma Basic metabolic panel Lab Routine Morning draw (Lab) for 5 Occurrences starting 11/21/2024 until 11/25/2024, 1 completed [facility] Work Phone: Comment on above: Morning draw (Lab) for 5 Occurrences sta rting 11/21/2024 until 11/25/2024, 1 completed Bx/exc lymph node op en deep axillary node BIOPSY, LYMPH NODE, AXILLARY Melanoma of back (Multi) [facility] End: 11-25-2024 CBC panel - Blood by Automated count CBC Lab Routine Morning draw (Lab) for 5 Occurrences starting 11/21/2024 until 11/25/2024, 1 completed [facility] Work Phone: Comment on above: Morning draw (Lab) for 5 Occurrences sta rting 11/21/2024 until 11/25/2024, 1 completed End: 08-07-2024 Choriogonadotropin ( test) [Presence] in Urine POCT , urine Point of Care Testing Routine Once (Lab) for 1 Occurrences starting 08/07/2024 until 08/07/2024 [facility] Service Area Work Phone: Comment on above: Once (Lab) for 1 Occurrences starting until 08/07/2024 Chromatin Ab [Units/ volume] in Serum or Plasma [facility] Work Phone: Complement C3 [Mass/ volume] in Serum or Plasma [facility] Work Phone: Complement C4 [Mass/ volume] in Serum or Plasma [facility] Work Phone: End: 08-07-2024 Continuous Pulse oximetry, In Phase 1 Continuous Pulse oximetry, In Phase 1 Respiratory Care Routine Continuous until discontinued starting 08/07/2024 [facility] Service Area Work Phone: Comment on above: Continuous until discontinued starting 0 08/07/2024 End: 10-09-2024 CT Guidance for biopsy of Mediastinum [facility] Service Area Work Phone: Comment on above: Once for 1 Occurrences starting 10/10/19 until 10/09/2024 Dermatopathology- DERM LAB [place] [facility]- DERM LAB Pathology and Cytology Routine Melanoma of back (Multi) Release Upon Ordering for 1 Occurrences starting 08/07/2024 [facility] Work Phone: Comment on above: Release Upon Ordering for 1 Occurrences starting 08/07/2024 dRVVT (LA screen) [facility] Work Phone: Electrocardiogram, 12-lead Elect rocardiogram, 12-lead ECG Routine 08/07/2024 9:36 AM EDT [facility] Work Phone: Excision tumor soft tis back/flank subq 3 cm/> EXCISION, LESION, BACK Melanoma of back (Multi) [facility] Hemolytic complement CH50 level [facility] Work Phone: Homogenous nuclear A b pattern [Titer] in Serum [facility] Work Phone: End: 11-20-2024 Incentive spirometry Incentive spirometry Respiratory Care Routine Once for 1 Occurrences starting 11/20/2024 until 11/20/2024 [facility] Work Phone: Comment on above: Once for 1 Occurrences starting 11/21/19 until 11/20/2024 Lupus anticoagulant [Interpretation] in Platelet poor plasma [facility] Work Phone: End: 11-25-2024 Magnesium [Mass/volume] in Serum or Plasma Magnesium Lab Routine Morning draw (Lab) for 5 Occurrences starting 11/21/2024 until 11/25/2024, 1 completed [facility] Work Phone: Comment on above: Morning draw (Lab) for 5 Occurrences sta rting 11/21/2024 until 11/25/2024, 1 completed Myoglobin [Mass/volu me] in Serum or Plasma [facility] Work Phone: Nuclear Ab [Titer] in Serum [facility] Work Phone: End: 11-20-2024 Prepare RBC: 2 Units Prepare RBC: 2 Units Blood Bank Routine Once for 1 Occurrences starting 11/20/2024 until 11/20/2024 [facility] Service Area Work Phone: Comment on above: Once for 1 Occurrences starting 11/21/19 until 11/20/2024 Pulse oximetry, spot Pulse oxime try, spot Respiratory Care Routine Every 4 hours until discontinued starting 11/20/2024, 7 completed [facility] Work Phone: Comment on above: Every 4 hours until discontinued startin g 11/20/2024, 7 completed Reagin Ab [Presence] in Serum by RPR [facility] Work Phone: Surgical pathology study Surgica l Pathology Exam Pathology and Cytology Routine Melanoma of back (Multi) Release Upon Ordering for 1 Occurrences starting 08/07/2024 [facility] Work Phone: Comment on above: Release Upon Ordering for 1 Occurrences starting 08/07/2024 End: 10-09-2024 Surgical pathology study Surgical Pathology Exam Pathology and Cytology Routine Once (Lab) for 1 Occurrences starting 10/09/2024 until 10/09/2024 [facility] Work Phone: Comment on above: Once (Lab) for 1 Occurrences starting until 10/09/2024 Surgical pathology study [facility] Service Area Work Phone: Comment on above: Release Upon Ordering for 1 Occurrences starting 11/20/2024, 1 completed THIN PREP TIS PAP AN D HR HPV DNA THIN PREP TIS PAP AND HR HPV DNA Pathology and Cytology Routine Well woman exam with routine gynecological exam Ordered: 06/13/2024 [facility] Work Phone: Comment on above: Ordered: 06/13/2024 Thrombin time [facility] Work Phone: Thyroglobulin Ab [Units/volume] in Serum or Plasma [facility] Work Phone: Thyroperoxidase Ab [Units/volume] in Serum or Plasma [facility] Work Phone: End: 12-08-2024 XR Chest 2 Views [facility] Service Area Work Phone: Comment on above: Once for 1 Occurrences starting 12/09/19 25 until 12/08/2024 End: 11-25-2024 XR Chest Single view XR chest 1 view Imaging Routine Daily for 5 Occurrences starting 11/21/2024 until 11/25/2024, 1 completed [facility] Work Phone: Comment on above: Daily for 5 Occurrences starting 025 until 11/25/2024, 1 completed Immunizations Immunization Date Immunization Notes Care Provider Kervin lam 03-27-2023 influenza virus vacc ine, unspecified formulation Talon [employer] [facility] Work Phone: [facility] Payers Date Payer Category Payer Self-pay [id number] 2021 Blue Cross Blue Shield BCBS [id number] 2021 Blue Cross Blue [facility] [id number] 1978 Unknown [id number] 2.16.840.1.906810.3.579. 2.593 1978 Unknown [id number] 2.16.840.1.584414.3.579. 2.593 1978 Unknown [id number] 2.16.840.1.127942.3.579. 2.593 1978 Unknown [id number] 2.16.840.1.661164.3.579. 2.593 1978 Unknown [id number] 2.16.840.1.910550.3.579. 2.1259 1978 Unknown [id number] 2.16840.1.025118.3.579. 2.1259 1978 Unknown [id number] 2.16.840.1.843479.3.579. 2.124 1978 Unknown [id number] 2.16.840.1.983313.3.579. 2.124 1978 Unknown [id number] 2.16840.1.763067.3.579. 2.1245 1978 Unknown [id number] 2.16840.1.592357.3.579. 2.124 1978 Unknown [id number] 2.16.840.1.008386.3.579. 2.124 1978 Unknown [id number] 2.16.840.1.031929.3.579. 2.124 1978 Unknown [id number] 2.16.840.1.673962.3.579. 2.124 1978 Unknown [id number] 2.16.840.1.566106.3.579. 2.124 1978 Unknown [id number] 2.16.840.1.564065.3.579. 2.5 1978 Unknown [id number] 2.16.840.1.428437.3.579. 2.1244 1978 Unknown [id number] 2.16.840.1.825981.3.579. 2.1244 1978 Unknown [id number] 2.16.840.1.602729.3.579. 2.1245 1978 Unknown [id number] 2.16.840.1.243343.3.579. 2.1245 1978 Unknown [id number] 2.16.840.1.783107.3.579. 2.1245 1978 Unknown [id number] 2.16.840.1.431312.3.579. 2.1245 1978 Unknown [id number] 2.16.840.1.025582.3.579. 2.1245 1978 Unknown [id number] 2.16.840.1.768075.3.579. 2.1245 1978 Unknown [id number] 2.16.840.1.932706.3.579. 2.1245 1978 Unknown [id number] 2.16.840.1.987630.3.579. 2.1246 1959 Unknown [id number] 1959 Unknown [id number] Unknown Wall[employer] BC/BS [id number] Unknown [id number] 2.16.840.1.282474.3.579. 2.531 Social History Date Type Detail Facility [facility] Work Phone: Start: 1980 Sex Assigned At Female [facility] Start: 06-07-2023 End: 01-16-2025 Tobacco smoking status [...] Tobacco use and exposure Smokeless tobacco non-user [facility] Work Phone: Start: 07-08-2024 End: 11-02-2024 Exposure to SARS-CoV-2 (event) Not sure [facility] Start: 07-26-2024 Alcohol Comment depends on the week's plans [facility] Work Phone: Start: 08-19-2024 End: 09-29-2024 Exposure to SARS-CoV-2 (event) Unable to assess [facility] Has the [employer], [employer], oil, or water company threatened to shut off services in your home in past 12Mo No [facility] Are you now , , , , never or living with a partner? [facility] Work Phone: How often to you hav e a drink containing alcohol? 2-3 time sa week [facility] Work Phone: Start: 07-07-2024 How hard is it for you to pay for the very basics like food, housing, medical care, and heating Not hard at all [facility] Work Phone: Do you feel stress - tense, restless, nervous, or anxious, or unable to sleep at night because your mind is troubled all the time - these days [OSQ] To some extent [facility] Work Phone: (I/We) worried wheth er (my/our) food would run out before (I/we) got money to buy more. Never true [facility] Work Phone: Start: 11-20-2024 End: 12-08-2024 Alcoholic beverage intake Ex-drinker (finding) [facility] Work Phone: Sex Female (finding) [facility] Goals Date Patient Goal Desired Activity /State Personal health goal Functional Status Date Assessment Result Facility 12-08-2024 Patient Health Quest ionnaire 2 item (PHQ-2) [Reported] [facility] Work Phone: 11-20-2024 Total score [AUDIT-C] 2 11/21/19 25 12:18 PM Melissa Costa RN [facility] Work Phone: 11-20-2024 Patient Health Quest ionnaire 2 item (PHQ-2) [Reported] [facility] Work Phone: 11-20-2024 Odell - suicide s everity rating scale screener - recent [C-SSRS] [facility] Work Phone: 09-06-2024 PHQ-9 quick depressi on assessment panel [Reported.PHQ] [facility] Work Phone: 09-06-2024 Total score [AUDIT-C] 3 09/07/19 25 10:14 AM Francheska Soares, CARLOS [facility] Work Phone: 09-06-2024 Humiliation, Afraid, Rape, and Kick questionnaire [HARK] [facility] Work Phone: 09-06-2024 Patient Health Quest ionnaire 2 item (PHQ-2) [Reported] [facility] Work Phone: 09-06-2024 Odell - suicide s everity rating scale screener - recent [C-SSRS] [facility] Work Phone: [facility] Work Phone: [facility] Work Phone: Clinical Notes 12-10-2021 to [...] a pmhx of HLD, neurofibromatosis, hydrocephalus with IT COMPLIANCE MANAGER shunt, and melanoma of the back [...] for surveillance. Harsha Ojeda MD Thoracic Surgeon [facility] [employer] Driercontrol integration engineer [facility] [employer] Office phone: Pager: [phone] documented in this encounter [facility] Work Phone: 11-21-2024 Plan of care [...] throughout the shift Outcome: Adequate for Discharge [facility] Work Phone: 11-21-2024 Miscellaneous Notes The [...] meals Offer water/supplements/favorite foods Reassess MST if food production manager not consulted Goal: Promote skin healing Outcome: Progressing Flowsheets (Taken 11/21/2024 0504) Promote skin healing: Assess skin/pad under line(s)/device(s) Ensure correct size (line/device) and apply per reheater helper instructions Protective dressings over bony prominences Rotate [...] at this time. Date: 11/20/2024 OR Location: [facility] Name: Shawna Grigsby, : 1980, Age: 44 y.o., , Sex: female Preop Diagnosis: posterior mediastinal mass Postop Diagnosis: posterior mediastinal mass Procedures: Robotic assisted posterior mediastinal mass resection Intercostal nerve block Bronchoscopy Surgeons: Harsha Ojeda MD Resident/Fellow/Other Investment Accounting Clerk: Surgeons and Role: * Tasha Farias PA-C - Assisting Anesthesia: General ASA: III Anesthesia Staff: Anesthesiologist: Joanna Hodges MD TRACTOR CRANE ENGINEER: Rogelio Clifton APRN-CHRISTOPHER Estimated Blood Loss: 10mL [...] EXAM Harsha Ojeda MD 11/20/2024 0849 Staff: Knife Machine Operator: Felicity Ruggiero RN Scrub Person: Sherie Tanner; [...] the port sites. I left one 28 Bulgarian chest tubes posteriorly. Then the lung was reinflated without issue under visualization. All the ports are closed with 2-0 Vicryl and 3-0 Monocryl. The final counts were correct. Patient was allowed to be awaken from general anesthesia and brought to recovery area in stable condition. I was present for the entire duration of the procedure. Tasha Houdek is required at bedside as first helper for robotic portion of the case including docking, instrumentation, de-docking, troubleshooting, dissection, and specimen retrieval. Since there is no qualified resident to assist at bedside, her role is critical to ensure the safety of the complex operation. Harsha Ojeda MD Thoracic Surgeon [facility] [employer] Driercontrol integration engineer [facility] Office phone: Pager: [phone] ADULT SURGERY PRE-OPERATIVE INSTRUCTIONS You will receive notification one business day prior to your surgery to confirm your arrival time and any additional information between 2 P.M. - 5 P.M. It is important that you answer your phone and/or check your messages during this time. You may see in [facility] your surgery start time changes several times even up to the day before your procedure. Please disregard those times and only follow the time given by the secondary market manager who will be notifying you via phone [...] the hospital and check in at the [facility] Outpatient Desk as you enter the hospital directly in front of you. If you enter through the Main Entrance, take the elevator off the lobby on the right labeled A to the 2nd floor and check in at the [facility] Outpatient Surgery desk as you [...] with you at time of discharge. The light truck driver of these transportation services is [...] nurse when you arrive for surgery. Nail bolivian must be removed off one finger of [...] themselves, a legal guardian or Power of Funds Development Director must accompany them to the hospital. If this is not possible, please call [phone] to make additional arrangements. Please bring guardianship or legal Power of Funds Development Director paperwork with you on the day of surgery. Wear comfortable, loose-fitting clothing. Do not bring any home medications with you to the hospital. If you have any questions or concerns, please call Pre-Admission Testing at or your Physician s office Dr. Harsha Ojeda [phone] documented in this encounter [facility] Work Phone: 11-21-2024 Nurse Note Patient and given AVS and reviewed. Patient and verbalized understanding. Reviewed post op care, pain management and new medication. All belongings sent with patient. [facility] 11-21-2024 Nurse Note Patient and given AVS and reviewed. Patient and verbalized understanding. Reviewed post op care, pain management and new medication. All belongings sent with patient. 1100- Pt arrived to sicu 4 connected to monitors. SFDC DEVELOPER Jacobo at bedside. documented in this encounter [facility] Work Phone: 11-21-2024 Hospital course Narrative Discharge Diagnosis Neurofibroma of thorax Issues Requiring Follow-Up S/p mediastinal mass resection Test Results Pending At Discharge Pending Labs Order Current Status Surgical Pathology Exam In process Hospital Course 44 yo female history of hydrocephalus status post IT COMPLIANCE MANAGER shunt, neurofibromatosis, gastroesophageal reflux disease, depression [...] Rate 85 BPM Atrial Rate 85 BPM KS Interval 166 ms QRS Duration 90 ms QT Interval 390 ms QTC Calculation(Bazett) 464 ms P Fulton 52 degrees R Fulton -4 degrees T Fulton 29 degrees QRS Count 14 beats Q [...] removal. COMPARISON: Chest radiograph 11/21/2024 ACCESSION NUMBER(S): [id number] ORDERING CLINICIAN: PARTHA ROCHA FINDINGS: AP radiograph of the chest was provided. A presumed IT COMPLIANCE MANAGER shunt is seen overlying the right base of the neck, right chest wall, and right hemiabdomen with tip not in [id number]. Interval removal of left chest tube. CARDIOMEDIASTINAL SILHOUETTE: The cardiomediastinal silhouette is persistently enlarged but stable in size and configuration. LUNGS: There is no consolidation, pleural effusion, or pneumothorax. ABDOMEN: No remarkable upper abdominal findings. BONES: No acute osseous changes. Interval removal of left chest tube. No evidence of acute cardiopulmonary process. MACRO: None Signed by: Jose Rogers 11/21/2024 10:33 AM Dictation workstation: [id number] XR chest 1 view Result Date: 11/21/2024 Interpreted By: Eloy José, STUDY: XR CHEST 1 VIEW; 11/21/2024 5:45 am INDICATION: Signs/Symptoms:s/p posterior mediastinal mass resection. COMPARISON: Portable chest, 20 November 2024 ACCESSION NUMBER(S): [id number] ORDERING CLINICIAN: ARIELLE SHAH TECHNIQUE: Single frontal view of the chest; Portable technique FINDINGS: Left chest tube unchanged in position Right sided central line is unchanged and well positioned No demonstrable pneumothorax or acute infiltrate on either side No large effusion or edema No interval change MACRO: None Signed by: Eloy Estefanía 11/21/2024 8:35 AM Dictation workstation: [id number] ECG 12 lead Result Date: 11/20/2024 Normal sinus rhythm Low voltage QRS Borderline ECG When compared with ECG of 07-AUG-2024 06:33, QT has lengthened Confirmed by Jordon Rabago ([id number]) on 11/20/2024 10:52:14 PM XR chest 1 view Result Date: 11/20/2024 Interpreted By: Raquel Sweeney, STUDY: Chest, single AP view. INDICATION: Signs/Symptoms:s/p mediastinal mass resection. COMPARISON: None. ACCESSION NUMBER(S): [id number] ORDERING CLINICIAN: ARIELLE SHAH FINDINGS: Chest tube [...] Raquel Sweeney 11/20/2024 11:04 AM Dictation workstation: [id number] Pertinent Physical Exam At Time of Discharge [...] Center 12/08/2024 11:30 AM Harsha Ojeda MD [id number] [place] Partha Rocha, 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-PATTERN WORKER [1] acetaminophen, 650 mg, oral, q6h cholecalciferol, [...] oxyCODONE, oxyCODONE, oxygen documented in this encounter [facility] Work Phone: 11-21-2024 Hospital Discharge instructions [...] or approved for treating a specific patient. [employer] and its affiliates disclaim any warranty or liability relating to this information or the use thereof. The use of this information is governed by the Terms of Use, available at https://www.[employer].com/en/ know/hsdrtips-qauxdyakdgncm-adfky Copyright 2022 [employer]. and its affiliates and/or licensors. All rights reserved. The following attachments cannot be sent through Care Everywhere.Oxycodone, ADULT (Kazakh)documented in this encounter [facility] Work Phone: 11-21-2024 History of Present illness Narrative [facility] Critical Care Medicine Date: 11/21/2024 Patient: Shawna Grigsby Date of : 1980 Admit Date: 11/20/2024 ===== No chief complaint on file. History of Present Illness: Shawna Grigsby is a 44 y.o. year old female patient with Past Medical History of neurofibromatosis, hydrocephalus with IT COMPLIANCE MANAGER shunt, HLD, GERD, depression/anxiety, Stage IIC [...] Past Medical History of neurofibromatosis, hydrocephalus with IT COMPLIANCE MANAGER shunt, HLD, GERD, depression/anxiety, Stage IIC [...] IIIc melanoma of the back Hydrocephalus s/p IT COMPLIANCE MANAGER shunt HLD GERD Depression/anxiety Plan: ICU postoperatively Maintain left pleural chest tube to waterseal Tylenol, oxycodone, Dilaudid for pain control Perioperative Ancef for 2 doses, complete Continue home Cymbalta, estradiol, famciclovir, Pepcid, linaclotide, Singulair, pepcid, statin Regular diet Continue outpatient follow-up with [facility] Instrument Repairer: DVT Prophylaxis: Heparin subcutaneous GI Prophylaxis: home pepcid Bowel Regimen: PRN Diet: regular CVC: no [place]: none Johnson: no Restraints: no Dispo: ICU [...] Dr. Jefferson and CTS team Marisol Figueroa, 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-PATTERN WORKER [1] Past Medical History: Diagnosis Date Arthritis [...] history on file. documented in this encounter [facility] Work Phone: 11-21-2024 Plan of care [...] meals Offer water/supplements/favorite foods Reassess MST if food production manager not consulted Goal: Promote skin healing Outcome: Progressing Flowsheets (Taken 11/21/2024 0504) Promote skin healing: Assess skin/pad under line(s)/device(s) Ensure correct size (line/device) and apply per reheater helper instructions Protective dressings over bony prominences Rotate device position/do not position patient on device Turn/reposition every 2 hours/use positioning/transfer devices [facility] 11-20-2024 Nurse Note 1100- Pt arrived to sicu 4 connected to monitors. SFDC DEVELOPER Jacobo at bedside. [facility] Work Phone: 11-20-2024 Consult note Formatting of th is note is different from the original. [facility] Critical Care Medicine Date: 11/20/2024 Patient: Shawna Grigsby Date of : 1980 Admit Date: 11/20/2024 ===== No chief complaint on file. History of Present Illness: Shawna Grigsby is a 44 y.o. year old female patient with Past Medical History of neurofibromatosis, hydrocephalus with IT COMPLIANCE MANAGER shunt, HLD, GERD, depression/anxiety, Stage IIC [...] Past Medical History of neurofibromatosis, hydrocephalus with IT COMPLIANCE MANAGER shunt, HLD, GERD, depression/anxiety, Stage IIC [...] IIIc melanoma of the back Hydrocephalus s/p IT COMPLIANCE MANAGER shunt HLD GERD Depression/anxiety Plan: Admit to ICU postoperatively Maintain left pleural chest tube to waterseal Tylenol, oxycodone, Dilaudid for pain control Perioperative Ancef for 2 doses Continue home Cymbalta, estradiol, famciclovir, Pepcid, linaclotide, Singulair, pepcid, statin Clear liquid diet, advance as tolerated Continue outpatient follow-up with [facility] Instrument Repairer: DVT Prophylaxis: Heparin subcutaneous GI Prophylaxis: home [...] include completion of procedure time. Jacobo Vital, 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-PATTERN WORKER Pulmonary & Critical Care [facility] [1] Past Medical History: Diagnosis Date [...] 650 mg, oral, q4h PRN, Arielle Shah, ELEUTERIO-PATTERN WORKER albuterol 2.5 mg /3 mL (0.083 %) [...] mg, 180 mg, oral, Daily, MAC Nicole [facility] Work Phone: 11-20-2024 Consult note Formatting of th is note is different from the original. [facility] Critical Care Medicine Date: 11/20/2024 Patient: Shawna Grigsby Date of : 1980 Admit Date: 11/20/2024 ===== No chief complaint on file. History of Present Illness: Shawna Grigsby is a 44 y.o. year old female patient with Past Medical History of neurofibromatosis, hydrocephalus with IT COMPLIANCE MANAGER shunt, HLD, GERD, depression/anxiety, Stage IIC [...] Past Medical History of neurofibromatosis, hydrocephalus with IT COMPLIANCE MANAGER shunt, HLD, GERD, depression/anxiety, Stage IIC [...] IIIc melanoma of the back Hydrocephalus s/p IT COMPLIANCE MANAGER shunt HLD GERD Depression/anxiety Plan: Admit to ICU postoperatively Maintain left pleural chest tube to waterseal Tylenol, oxycodone, Dilaudid for pain control Perioperative Ancef for 2 doses Continue home Cymbalta, estradiol, famciclovir, Pepcid, linaclotide, Singulair, pepcid, statin Clear liquid diet, advance as tolerated Continue outpatient follow-up with [facility] Instrument Repairer: DVT Prophylaxis: Heparin subcutaneous GI Prophylaxis: home pepcid Bowel Regimen: PRN Diet: clear liquid, advance as tolerated CVC: no Rochester: remove Johnson: no Restraints: no Dispo: ICU Critical Care Time: 35 minutes spent in preparing to see patient (I.e. review of medical records), evaluation of diagnostics (I.e. labs, imaging, etc.), documentation, discussing plan of care with patient/ family/ caregiver, and/ or coordination of care with multidisciplinary team. Time does not include completion of procedure time. Jacobo Vital, 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-PATTERN WORKER Pulmonary & Critical Care [facility] [1] Past Medical History: Diagnosis Date [...] Daily, MAC Nicole documented in this encounter [facility] Work Phone: 11-20-2024 Nurse Surgical operation note Dr. Hodges aware pt. Resting quietly but, when awakened to asked about her pain pt. States pain still [address] Hodges awake of amount of pain meds and OK with pt. Being discharged to SICU at this time. [facility] 11-20-2024 Surgery Surgical operation note Date: 11/20/2024 OR Location: [facility] Name: Shawna Grigsby, : 1980, Age: 44 y.o., , Sex: female Preop Diagnosis: posterior mediastinal mass Postop Diagnosis: posterior mediastinal mass Procedures: Robotic assisted posterior mediastinal mass resection Intercostal nerve block Bronchoscopy Surgeons: Harsha Ojeda MD Resident/Fellow/Other Investment Accounting Clerk: Surgeons and Role: * Tasha Farias PA-C - Assisting Anesthesia: General ASA: III Anesthesia Staff: Anesthesiologist: Joanna Hodges MD TRACTOR CRANE ENGINEER: DANIELLE Vásquez Estimated Blood Loss: 10mL Intra-op [...] EXAM Harsha Ojeda MD 11/20/2024 0849 Staff: Knife Machine Operator: Felicity Ruggiero RN Scrub Person: Sherie Tanner; [...] the port sites. I left one 28 Bulgarian chest tubes posteriorly. Then the lung was reinflated without issue under visualization. All the ports are closed with 2-0 Vicryl and 3-0 Monocryl. The final counts were correct. Patient was allowed to be awaken from general anesthesia and brought to recovery area in stable condition. I was present for the entire duration of the procedure. Tasha Farias is required at bedside as first helper for robotic portion of the case including docking, instrumentation, de-docking, troubleshooting, dissection, and specimen retrieval. Since there is no qualified resident to assist at bedside, her role is critical to ensure the safety of the complex operation. Harsha Ojeda MD Thoracic Surgeon [facility] [employer] Driercontrol integration engineer [facility] Office phone: Pager: [phone] [facility] Work Phone: 11-20-2024 History and physical note Path showed neurofibroma. Offered her upfront minimal invasive surgical resection. Patient consented to proceed. Harsha Ojeda MD Thoracic Surgeon [facility] [employer] Driercontrol integration engineer [facility] Office phone: HPI: Shawna Grigsby is a 44 y.o. female with a pmhx of HLD, neurofibromatosis, hydrocephalus with IT COMPLIANCE MANAGER shunt, and melanoma of the back [...] dyspnea on exertion. She denied history of AL or stroke. She has a personal history [...] HPI PSHx: Cholecystectomy, hysterectomy, skin lesion resections, IT COMPLIANCE MANAGER shunt revisions. SHx: Never smoker, deny ETOH, or illicit drugs. Working as a [employer] for 3 years. FMHx: Maternal grandmother has [...] This mass was biopsied. --Patient has known IT COMPLIANCE MANAGER shunt across anterior right neck, anterior [...] I will recommend upfront surgical resection. T [facility] Work Phone: 11-20-2024 History and physical note Path showed neurofibroma. Offered her upfront minimal invasive surgical resection. Patient consented to proceed. Harsha Ojeda MD Thoracic Surgeon [facility] [employer] Driercontrol integration engineer [facility] Office phone: HPI: Shawna Grigsby is a 44 y.o. female with a pmhx of HLD, neurofibromatosis, hydrocephalus with IT COMPLIANCE MANAGER shunt, and melanoma of the back [...] dyspnea on exertion. She denied history of AL or stroke. She has a personal history [...] HPI PSHx: Cholecystectomy, hysterectomy, skin lesion resections, IT COMPLIANCE MANAGER shunt revisions. SHx: Never smoker, deny ETOH, or illicit drugs. 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 FMHx: Maternal grandmother [...] This mass was biopsied. --Patient has known IT COMPLIANCE MANAGER shunt across anterior right neck, anterior [...] upfront surgical resection. documented in this encounter [facility] Work Phone: 10-26-2024 Instructions Formatting of [...] only follow the time given by the secondary market manager who will be notifying you via phone [...] the hospital and check in at the [facility] Outpatient Desk as you enter the hospital directly in front of you. If you enter through the Main Entrance, take the elevator off the lobby on the right labeled A to the 2nd floor and check in at the [facility] Outpatient Surgery desk as you [...] with you at time of discharge. The light truck driver of these transportation services is [...] nurse when you arrive for surgery. Nail bolivian must be removed off one finger of [...] themselves, a legal guardian or Power of Funds Development Director must accompany them to the hospital. If this is not possible, please call [phone] to make additional arrangements. Please bring guardianship or legal Power of Funds Development Director paperwork with you on the day of surgery. Wear comfortable, loose-fitting clothing. Do not bring any home medications with you to the hospital. If you have any questions or concerns, please call Pre-Admission Testing at or your Physician s office Dr. Harsha Ojeda [phone] [facility] 10-23-2024 History of Present illness Narrative Images from the original note were not included. CUTANEOUS ONCOLOGY: FOLLOW UP Diagnosis: Stage IIC melanoma ([id number]) Location: back Oncologic history (see initial consultation [...] clinical picture. Alanna Pennington MD Attending Physician [facility] [employer] Driercontrol integration engineer [facility] [employer] documented in this encounter [facility] Work Phone: 10-09-2024 Hospital Discharge instructions [...] questions related to your procedure: Please call [phone] between the hours of 7:00am-5:00pm Wednesday through Wednesday. Please call [phone] after 5:00pm and on weekends and holidays. In the event of an emergency call 911 or go to your nearest emergency room. documented in this encounter [facility] Work Phone: 10-09-2024 Evaluation note Interventional [...] been discussed with the patient and/or their community service representative. All questions answered and they agree to proceed. [facility] Work Phone: 10-09-2024 Evaluation note Interventional [...] been discussed with the patient and/or their community service representative. All questions answered and they agree to proceed. Reviewed and approved by KOREY BUTT on 10/09/24 at 11:50 AM. [facility] Work Phone: 10-09-2024 Miscellaneous Notes Interventional Radiology [...] been discussed with the patient and/or their community service representative. All questions answered and they [...] been discussed with the patient and/or their community service representative. All questions answered and they agree to proceed. Reviewed and approved by KOREY BUTT on 10/09/24 at 11:50 AM. documented in this encounter [facility] Work Phone: 10-04-2024 History of Present [...] clinical picture. Alanna Pennington MD Attending Physician [facility] [employer] Driercontrol integration engineer [facility] [employer] documented in this encounter [facility] Work Phone: 09-29-2024 History of Present [...] clinical picture. Alanna Pennington MD Attending Physician [facility] [employer] Driercontrol integration engineer [facility] [employer] documented in this encounter [facility] Work Phone: 09-06-2024 History of Present [...] invasion: no Neutropism/perineural invasion: no Margins: negative Lamont lymph node status: 0/2 positive lymph nodes [...] q6 weeks (nivolumab can be extended to [id number]). . We discussed treatment route, efficacy, and possible MANNY. I would recommend pembrolizumab 200 mg u2bgoqs x 1 year to start. I gave her patient information on this treatment. She will need baseline scans. MRI brain and PET. RTC post imaging. Shawna Grigsby and her partner understand the plan and have no further questions. she will contact us if there are any new concerns or change in clinical picture. Alanna Pennington MD Attending Physician [facility] [employer] Driercontrol integration engineer [facility] [employer] [1] Past Medical History: Diagnosis Date Arthritis in entire back Chronic headaches migraines Depression GERD (gastroesophageal reflux disease) Hydrocephalus has had shunt placed Hyperlipidemia Irritable bowel syndrome Melanoma (Multi) on back Wears glasses documented in this encounter [facility] Work Phone: 08-29-2024 History of Present [...] adjuvant therapy vs surveillance. Yanet Pacheco MD machine worker Division of Surgical Oncology [phone] [email or web address] SUBJECTIVE Shawna Grigsby is a 44 [...] Melanoma of back (Multi) C43.59 Specimen ID: [id number], [id number] Specimen Source: SKIN INCISIONAL BIOPSY Site/Location: WIDE LOCAL INCISION MIDBACK Collection Comments: SHORT STITCH SUPERIOR/ LONG STITCH LEFT Specimen ID: [id number], [id number] Specimen Source: LYMPH NODE EXCISION Site/Location: RIGHT [...] determined by the Department of Pathology at [facility]. The FDA does not require this [...] EXCISION, RE-EXCISION - A SPECIMEN Procedure Excision Lamont node(s) biopsy Specimen Laterality Midline TUMOR Tumor [...] of Lymph Nodes Examined 2 Number of Lamont Nodes Examined 1 PATHOLOGIC STAGE CLASSIFICATION (pTNM, AJCC 8th Edition) pT Category pT4b pN Category pN0 ADDITIONAL FINDINGS Additional Findings Multifocal incidental melanocytic nevi and numerous incidental neurofibromas throughout the excision. Comment(s) Tumor block residual melanoma in situ present in blocks A19, A20, A22, and A24. documented in this encounter [facility] Work Phone: 08-07-2024 Miscellaneous Notes Excision Lesion Back, Lamont Lymph Node Biopsy (R) Operative Note Date: 08/07/2024 OR Location: [facility] Name: Shawna Grigsby, : 1980, Age: 43 y.o., , Sex: female Diagnosis Pre-op Diagnosis * Melanoma of back (Multi) [C43.59] Post-op Diagnosis * Melanoma of back (Multi) [C43.59] Procedures Excision Lesion Back 42196 - [place] EXCISION TUMOR SOFT TIS BACK/FLANK SUBQ 3 CM/> Lamont Lymph Node Biopsy 32075 - KS BX/EXC LYMPH NODE OPEN DEEP AXILLARY NODE Surgeons * Yanet Pacheco - Primary Resident/Fellow/Other Investment Accounting Clerk: Surgeons and Role: * Sofia Baker PA-C - Assisting Staff: Gasoline Catalyst Operator: Knife Machine Operator: Nela Lucio Person: Reji Anesthesia Staff: Anesthesiologist: [...] DERMPATH LAB- DERMATOPATHOLOGY Yanet Pacheco MD 08/07/2024 1050 INDICATIONS FOR SURGERY Diagnosis: Primary cutaneous melanoma [...] lymph nodes: 2 The patient arrived at [facility] for the aforementioned procedure. Consent was [...] complex multilayer fashion using deep 2-0 Vicryl [id number], interrupted 3-0 Vicryl deep dermals, and a [...] multilayer fashion using a deep 2-0 Vicryl [id number], interrupted deep 3-0 Vicryl, and a running subcuticular 4-0 Monocryl. The skin was dressed with Dermabond. The patient was awoken and returned to the PACU in anticipation of discharge home. I was present scrubbed and directed all operative decision-making. Please note that we will be billing for the BRUNO's first helper as he/she was critical for successful completion [...] only follow the time given by the secondary market manager who will be notifying you via phone [...] the hospital and check in at the [facility] Outpatient Desk as you enter the hospital directly in front of you. If you enter through the Main Entrance, take the elevator off the lobby on the right labeled A to the 2nd floor and check in at the [facility] Outpatient Surgery desk as you [...] with you at time of discharge. The light truck driver of these transportation services is [...] nurse when you arrive for surgery. Nail bolivian must be removed off one finger of [...] themselves, a legal guardian or Power of Funds Development Director must accompany them to the hospital. If this is not possible, please call [phone] to make additional arrangements. Please bring guardianship or legal Power of Funds Development Director paperwork with you on the day of surgery. Wear comfortable, loose-fitting clothing. Do not bring any home medications with you to the hospital. If you have any questions or concerns, please call Pre-Admission Testing at or your Physician s office Dr. Yanet Pacheco [phone] documented in this encounter [facility] Work Phone: 08-07-2024 Surgery Surgical operation note Excision Lesion Back, Lamont Lymph Node Biopsy (R) Operative Note Date: 08/07/2024 OR Location: [facility] Name: Shawna Grigsby, : 1980, Age: 43 y.o., , Sex: female Diagnosis Pre-op Diagnosis * Melanoma of back (Multi) [C43.59] Post-op Diagnosis * Melanoma of back (Multi) [C43.59] Procedures Excision Lesion Back - KS EXCISION TUMOR SOFT TIS BACK/FLANK SUBQ 3 CM/> Lamont Lymph Node Biopsy 77398 - KS BX/EXC LYMPH NODE OPEN DEEP AXILLARY NODE Surgeons * Yanet Pacheco - Primary Resident/Fellow/Other Investment Accounting Clerk: Surgeons and Role: * Sofia Baker PA-C - Assisting Staff: Gasoline Catalyst Operator: Knife Machine Operator: Nela Lucio Person: Reji Anesthesia Staff: Anesthesiologist: [...] lymph nodes: 2 The patient arrived at [facility] for the aforementioned procedure. Consent was [...] complex multilayer fashion using deep 2-0 Vicryl [id number]-ru-[id number], interrupted 3-0 Vicryl deep dermals, and a [...] multilayer fashion using a deep 2-0 Vicryl fwaepo-he-kolqe, interrupted deep 3-0 Vicryl, and a running subcuticular 4-0 Monocryl. The skin was dressed with Dermabond. The patient was awoken and returned to the PACU in anticipation of discharge home. I was present scrubbed and directed all operative decision-making. Please note that we will be billing for the BRUNO's first helper as he/she was critical for successful completion of the case including positioning of the body, retraction, suture management, and wound closure. There was no qualified resident available for the case. T [facility] Work Phone: 08-07-2024 Hospital Discharge instructions [...] of the following, please call Ernestine Clark ([phone]) or Dr. Pacheco's office ([phone]). Swelling under the incision like a golf ball or larger. Redness of the skin that is spreading away from the incision. Drainage from the incision. Fevers, chills, or any other concerning symptoms. Follow-up Call Heidy Horan at [phone] to arrange a postop visit in 2-3 [...] sent through Care Everywhere.General Anesthesia Discharge Instructions (Kazakh)documented in this encounter [facility] Work Phone: 08-07-2024 Attending History and [...] We will look for OR time at [place] in the coming weeks. I believe this will close primarily with a 2 cm margin. Tumor board discussion is pending I spent 60 minutes in the professional and overall care of this patient. Yanet Pacheco MD machine worker Division of Surgical Oncology [phone] [email or web address] History Of Present Illness Referring provider: [...] Results FINAL DIAGNOSIS 5 SLIDES, [facility] , #[id number] (BX: 06/28/2024) SKIN, RIGHT BACK, BIOPSY: MALIGNANT [...] (pTNM, AJCC 8th Edition) pT Category pT4b [facility] Work Phone: 08-07-2024 History and physical [...] We will look for OR time at [place] in the coming weeks. I believe this will close primarily with a 2 cm margin. Tumor board discussion is pending I spent 60 minutes in the professional and overall care of this patient. Yanet Pacheco MD machine worker Division of Surgical Oncology [phone] [email or web address] History Of Present Illness Referring provider: [...] Results FINAL DIAGNOSIS 5 SLIDES, [facility] , #[id number] (BX: 06/28/2024) SKIN, RIGHT BACK, BIOPSY: MALIGNANT [...] pT Category pT4b documented in this encounter [facility] Work Phone: 07-26-2024 Instructions Formatting of [...] during this time. You may see in [facility] your surgery start time changes several times even up to the day before your procedure. Please disregard those times and only follow the time given by the secondary market manager who will be notifying you via phone [...] the hospital and check in at the [facility] Outpatient Desk as you enter the hospital directly in front of you. If you enter through the Main Entrance, take the elevator off the lobby on the right labeled A to the 2nd floor and check in at the [facility] Outpatient Surgery desk as you [...] with you at time of discharge. The light truck driver of these transportation services is [...] nurse when you arrive for surgery. Nail bolivian must be removed off one finger of [...] themselves, a legal guardian or Power of Funds Development Director must accompany them to the hospital. If this is not possible, please call [phone] to make additional arrangements. Please bring guardianship or legal Power of Funds Development Director paperwork with you on the day of surgery. Wear comfortable, loose-fitting clothing. Do not bring any home medications with you to the hospital. If you have any questions or concerns, please call Pre-Admission Testing at or your Physician s office Dr. Yanet Pacheco [phone] [facility] 07-18-2024 History of Present illness Narrative [...] We will look for OR time at [place] in the coming weeks. I believe this will close primarily with a 2 cm margin. Tumor board discussion is pending I spent 60 minutes in the professional and overall care of this patient. Yanet Pacheco MD machine worker Division of Surgical Oncology [phone] [email or web address] History Of Present Illness Referring provider: [...] Results FINAL DIAGNOSIS 5 SLIDES, [facility] , #[id number] (BX: 06/28/2024) SKIN, RIGHT BACK, BIOPSY: MALIGNANT [...] pT Category pT4b documented in this encounter [facility] Work Phone: 06-13-2024 History of Present [...] nursing note reviewed. Exam conducted with a college tutor present. Vitals: Estimated body mass index is [...] Talon Tilley DO documented in this encounter [facility] 12-10-2021 Note EXAMINATION: CT HEAD WO CON [...] by: ROGELIO VAZQUEZ Date: 2021-12-10 07:26 [facility] Evaluation note No assessment inform ation available [place] Work Phone: Evaluation note Diagnosis Well woman exam with routine gynecological exam Routine gynecological examination documented in this encounter [facility] HealthcareEvaluation note* Diagnosis Melanoma of back (Multi)- Primary Melanoma of back (Multi)- Primary documented in this encounter [facility] Work Phone: Evaluation note* Diagnosis Melanoma of back (Multi)- Primary Melanoma of back (Multi) Class 1 obesity due to excess calories with body mass index (BMI) of 31.0 to 31.9 in adult Gastroesophageal reflux disease without esophagitis Esophageal reflux documented in this encounter [facility] Work Phone: Evaluation note* Diagnosis Melanoma of back (Multi) documented in this encounter [facility] Work Phone: Evaluation note* Diagnosis Melanoma of back (Multi)- Primary documented in this encounter [facility] Work Phone: Evaluation note* Diagnosis Melanoma of back (Multi) documented in this encounter [facility] Work Phone: Evaluation note* Diagnosis Melanoma of back (Multi) documented in this encounter [facility] Work Phone: Evaluation note* Diagnosis Melanoma of back (Multi) documented in this encounter [facility] Work Phone: [phone] note* Diagnosis Melanoma of back (Multi) documented in this encounter [facility] Work Phone: [phone] note* Diagnosis Melanoma of back (Multi)- Primary documented in this encounter [facility] Work Phone: [phone] note* Diagnosis Melanoma of back (Multi) documented in this encounter [facility] Work Phone: [phone] note* Diagnosis Neurofibroma of thorax- Primary Melanoma of back (Multi) Neurofibroma of thorax documented in this encounter [facility] Work Phone: Evaluation note* Diagnosis Neurofibroma of thorax- Primary Neurofibroma of thorax Acute postoperative pain Other acute postoperative pain Hyperlipidemia Other and unspecified hyperlipidemia Irritable bowel syndrome Depression Depressive disorder, not elsewhere classified History of migraine headaches Skin cancer Other malignant neoplasm of skin, site unspecified documented in this encounter [facility] Work Phone: [phone] note* Diagnosis Neurofibroma of thorax- Primary documented in this encounter [facility] Work Phone: [phone] note* Diagnosis Mediastinal mass Swelling, mass, or lump in chest documented in this encounter [facility] Work Phone: Evaluation note* Diagnosis Onset Date Resolution Status Admit Date Insomnia acute January 16, 025 9:18am Migraine noneactive January 16 025 9:18am [facility] Work Phone: Reason for referral (narrative)[facility] for [facility] Reason for visit Narrative* Auth/Cert Specialty Diagnoses / Procedures Referred By Marixa t Referred To Contact Diagnoses Melanoma of back (Multi) Melanoma of back (Multi) [C43.59] Procedures KS EXCISION TUMOR SOFT TIS BACK/FLANK SUBQ 3 CM/> KS BX/EXC LYMPH NODE OPEN DEEP AXILLARY NODE Excision Lesion Back [place] Lymph [place] [address] [address] [facility] [place] Phone: tel: fax: [facility] [place] [address] [place] [phone] fax: Referral ID Status Reason Start Date Expiration Date Visits Re quested Visits Authorized [id number] 1 1 [facility] Work Phone: Reryct for visit Narrative* Imaging (Routine) - Authorized Specialty Diagnoses / Procedures Referred By Contac t Referred To Contact Radiology Diagnoses Melanoma of back (Multi) Procedures NM lymphoscintigram Yanet Pacheco [place] [id number] [place] [address] [place] [id number] Phone: tel: fax: Referral ID Status Reason Start Date Expiration Date Visits Requested Visits Authorized [id number] Authorized Perform Procedure 07/18/2024 07/18/2025 2 2 [facility] Work Phone: reason for visit Narrative* Imaging (Routine) - Authorized Specialty Diagnoses / Procedures Referred By Contac t Referred To Contact Radiology Diagnoses Melanoma of back (Multi) Procedures NM lymphoscintigram Yanet Pacheco MD [id number] [place] [address] [place] [id number] Phone: tel: fax: Referral ID Status Reason Start Date Expiration Date Visits Requested Visits Authorized [id number] Authorized Perform Procedure 07/18/2024 07/18/2025 2 2 [facility] Work Phone: reason for visit Narrative* Imaging (Emergency) - Authorized Specialty Diagnoses / Procedures Referred By Contac t Referred To Contact Radiology Diagnoses Melanoma of back (Multi) Procedures MR brain w and wo IV contrast MR brain w [place] [address] [address] [place] [id number] Phone: tel: fax: Referral ID Status Reason Start Date Expiration Date Visits Requested Visits Authorized [id number] Authorized Perform Procedure 09/06/2024 09/06/2025 1 1 [facility] Work Phone: reason for visit Narrative* Imaging (Emergency) - Authorized Specialty Diagnoses / Procedures Referred By Contac t Referred To Contact Radiology Diagnoses Melanoma of back (Multi) Procedures NM PET CT whole body NM PET CT whole body Alanna Pennington [place] [id number] [place] [address] Phone: tel: fax: Referral ID Status Reason Start Date Expiration Date Visits Requested Visits Authorized [id number] Authorized Perform Procedure 09/06/2024 09/06/2025 3 3 [facility] Work Phone: reason for visit Narrative* Imaging (Emergency) - Authorized Specialty Diagnoses / Procedures Referred By Contac t Referred To Contact Radiology Diagnoses Melanoma of back (Multi) Procedures NM PET CT whole body NM PET [place] [address] [place] [address] Phone: tel: fax: Referral ID Status Reason Start Date Expiration Date Visits Requested Visits Authorized [id number] Authorized Perform Procedure 09/06/2024 09/06/2025 3 3 [facility] Work Phone: reason for visit Narrative* Imaging (Emergency) - Authorized Specialty Diagnoses / Procedures Referred By Contac t Referred To Contact Radiology Diagnoses Melanoma of back (Multi) Procedures CT guided percutaneous biopsy mediastinum CT guided percutaneous biopsy muscle Consult to Interventional [place] [address] [place] [address] Phone: tel: fax: Referral ID Status Reason Start Date Expiration Date Visits Requested Visits Authorized [id number] Authorized Perform Procedure 10/04/2024 10/04/2025 1 1 [facility] Work Phone: reason for visit Narrative* Auth/Cert Specialty Diagnoses / Procedures Referred By Contac t Referred To Contact Diagnoses 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] Procedures KS THORACOSCOPY W/EXC MEDIASTINAL CYST TUMOR/MASS Robotic assisted posterior mediastinal mass resection - [place] [address] [place] [address] Phone: tel: fax: [facility] [place] [address] [place] [phone] fax: Referral ID Status Reason Start Date Expiration Date Visits Re quested Visits Authorized [id number] 1 1 [facility] Work Phone: Reason for visit Narrative* Imaging (Routine) - Authorized Specialty Diagnoses / Procedures Referred By Marixa t Referred To Contact Radiology Diagnoses Mediastinal mass Procedures XR chest 2 [place] [address] [place] [address] Phone: tel: fax: Referral ID Status Reason Start Date Expiration Date Visits Requested Visits Authorized [id number] Authorized Perform Procedure 12/05/2024 12/05/2025 1 1 [facility] Work Phone: Chief Complaint and Reason [...] Active Damir Laughlin MD Attending Provider Active Researcher Relationship Specialty Start Date End Date Monroe Whitaker MD [address] [place] [address] PCP - General Internal Medicine 06/09/23 Researcher Relationship Specialty Start Date End Date Monroe Whitaker MD [address] [place] [address] PCP - General Internal Medicine 06/09/23 Researcher Relationship Specialty Start Date End Date Monroe Whitaker MD [address] [place] [address] PCP - General Internal Medicine 06/09/23 Researcher Relationship Specialty Start Date End Date Monroe Whitaker DO [address] [place] [address] PCP - General Internal Medicine 07/07/24 Migel Polanco MD [address] [address] Referring Physician Dermatology 07/07/24 Researcher Relationship Specialty Start Date End Date Monroe Whitaker DO [address] [place] [address] PCP - General Internal Medicine 07/07/24 Migel Polanco MD [address] [facility] [address] [place] [address] Referring Physician Dermatology 07/07/24 Researcher Relationship Specialty Start Date End Date Monroe Whitaker DO [facility] [place] [address] PCP - General Internal Medicine 07/07/24 Migel Polanco MD [address] [address] Referring Physician Dermatology 07/07/24 Researcher Relationship Specialty Start Date End Date Monroe Whitaker DO [address] [place] [address] PCP - General Internal Medicine 07/07/24 Migel Polanco MD [address] [address] Referring Physician Dermatology 07/07/24 Researcher Relationship Specialty Start Date End Date Monroe Whitaker DO [facility] [place] [address] PCP - General Internal Medicine 07/07/24 Migel Polanco MD [address] [facility] [address] [place] [address] Referring Physician Dermatology 07/07/24 Researcher Relationship Specialty Start Date End Date Monroe Whitaker DO [facility] [place] [address] PCP - General Internal Medicine 07/07/24 Migel Polanco MD [address] [facility] [address] [place] [address] Referring Physician Dermatology 07/07/24 [place] [address] [place] [address] Consulting Physician Hematology and Oncology 09/06/24 Researcher Relationship Specialty Start Date End Date Monroe Whitaker DO [facility] [place] [address] PCP - General Internal Medicine 07/07/24 Migel Polanco MD [address] [address] Referring Physician Dermatology 07/07/24 [place] [address] [place] [address] Consulting Physician Hematology and Oncology 09/06/24 Francheska Hayden, RN Patient Communications Tower Climber Hematology and Oncology 09/06/24 Researcher Relationship Specialty Start Date End Date Monroe Whitaker DO [address] [place] [address] PCP - General Internal Medicine 07/07/24 Migel Polanco MD [address] [facility] [address] [place] [address] Referring Physician Dermatology 07/07/24 [place] [address] [place] [address] Consulting Physician Hematology and Oncology 09/06/24 Francheska Hayden, RN Patient Communications Tower [employer]imber Hematology and Oncology 09/06/24 Researcher Relationship Specialty Start Date End Date Monroe Whitaker DO [facility] [place] [address] PCP - General Internal Medicine 07/07/24 Migel Polanco MD [address] [facility] [address] [place] [address] Referring Physician Dermatology 07/07/24 [place] [address] [place] [address] Consulting Physician Hematology and Oncology 09/06/24 Francheska Hayden, RN Patient Communications Tower [employer]imber Hematology and Oncology 09/06/24 Researcher Relationship Specialty Start Date End Date Monroe Whitaker DO [facility] [place], [place] [id number] PCP - General Internal Medicine 07/07/24 [facility] [address] [facility] [address] [place] [address] Referring Physician Dermatology 07/07/24 [place] [address] [place] [address] Consulting Physician Hematology and Oncology 09/06/24 Francheska Hayden, RN Patient Communications Tower [employer]imber Hematology and Oncology 09/06/24 Researcher Relationship Specialty Start Date End Date Monroe Whitaker DO [facility] [place] [address] PCP - General Internal Medicine 07/07/24 Migel Polanco MD [address] [facility] [address] [place] [address] Referring Physician Dermatology 07/07/24 [place] [address] [place] [address] Consulting Physician Hematology and Oncology 09/06/24 Francheska Hayden, RN Patient Communications Tower [employer]imber Hematology and Oncology 09/06/24 Researcher Relationship Specialty Start Date End Date Monroe Whitaker DO [address] [place] [address] PCP - General Internal Medicine 07/07/24 Migel Polanco MD [address] [facility] [address] [place] [address] Referring Physician Dermatology 07/07/24 [place] [address] [place] [address] Consulting Physician Hematology and Oncology 09/06/24 Francheska Hayedn, RN Patient Communications Tower [employer]ber Hematology and Oncology 09/06/24 Researcher Relationship Specialty Start Date End Date Monroe Whitaker DO [address] [place] [address] PCP - General Internal Medicine 07/07/24 Migel Polanco MD [address] [facility] [address] [place] [address] Referring Physician Dermatology 07/07/24 [place] [address] [place] [address] Consulting Physician Hematology and Oncology 09/06/24 Francheska Hayden, RN Patient Communications [employer] Hematology and Oncology 09/06/24 Researcher Relationship Specialty Start Date End Date Monroe Whitaker DO [address] [place] [address] PCP - General Internal Medicine 07/07/24 Migel Polanco MD [address] [address] Referring Physician Dermatology 07/07/24 [place] [address] [place] [address] Consulting Physician Hematology and Oncology 09/06/24 Francheska Hayden, RN Patient Communications Tower [employer]imber Hematology and Oncology 09/06/24 Team Status: Inactive Member Role Status Dates Monroe Whitaker JR DO Primary Care Provider Active Start: January 16, 2025 End: January 16, 2025 Maira Flowers APRN Attending Provider Active Start: January 16, 2025 End: January 16, 2025 Goals (unrecognized section and content) Goals may be documented in a n alternate sectionGoals may be documented in an alternate sectionGoals may be documented in an alternate sectionGoals may be documented in an alternate section INFORMATION SOURCE (unrecogn ized section and content) DATE CREATED AUTHOR 05/15/2022 [facility] DATE CREATED AUTHOR AUTHOR'S ORGANIZ ATION 01/07/2023 [facility] DATE CREATED AUTHOR AUTHOR'S ORGANIZ ATION 01/29/2023 [facility] DATE CREATED AUTHOR AUTHOR'S ORGANIZ ATION 06/14/2024 [facility] DATE CREATED AUTHOR AUTHOR'S ORGANIZ ATION 07/19/2024 [facility] DATE CREATED AUTHOR AUTHOR'S ORGANIZ ATION 11/04/2024 [facility] DATE CREATED AUTHOR AUTHOR'S ORGANIZ ATION 11/21/2024 [facility] DATE CREATED AUTHOR AUTHOR'S ORGANIZ ATION 12/15/2024 [facility] Reason for Visit (unrecogniz ed section and content) Reason Comments Well Women Visit Reason Comments New Patient Visit Reason Comments New Patient Visit Specialty Diagnoses / Procedures Referred By Marixa t Referred To Contact Hematology and Oncology Diagnoses Melanoma of back (Multi) [place] [address] [facility] [place] [address] Phone: tel: fax: [place] [address] [place] [address] Phone: tel: fax: Referral ID Status Reason Start Date Expiration Date Visits Requested Visits Authorized [id number] Authorized Specialty Services Required 08/29/2024 08/29/2025 1 [...] (Continued by Anesthesia - Provider: Rogelio Clifton APRN-TRACTOR CRANE ENGINEER)1101 (Stopped - Provider: Melissa Barber RN - [...] pain scores based on patient preference? Yes 1127 (Given - Provider: Melissa Barber RN)7899 (Given - Provider: Melissa Barber RN)1892 (Given - Provider: Zoey Lozano RN) oxyCODONE (Roxicodone) immediate release tablet 5 mg 5 mg, oral, Every 4 hours PRN, pain moderate (4-6), first line, Starting on Wed11/20/24 at 1100, Phase II/On Unit, If ordered PRN for pain, nurse is permitted to administer this medication for higher pain scores based on patient preference? Yes 3313 (Given - Provid er: Yue Toledo RN) [...] BE BASED ON THE PRIMARY CLINICAL RECORDS. [employer] provides no warranty or guarantee of the accuracy or completeness of information in this document.
--- NOTE | 2025-02-12 16:19 | CT_ITS ---
The [address] [address] Patient Name: GARRY GRIGSBY MRN: [facility]:[id number] date: 1980 Sex: F Assigned Patient Location: ER Current Patient Location: ED.MAIN Accession/Order Number: [id number] Exam Date: 02/12/2025 16:25 Report Date: 02/12/2025 16:42 At the request of: JOSEPHINE GUIDRY MD Procedure: CT head/brain wo con CT BRAIN WITHOUT CONTRAST: CLINICAL HISTORY: ams COMPARISON: 12/09/2021 TECHNIQUE: Contiguous axial unenhanced images were obtained through the brain. This CT exam was performed using one or more following dose reduction techniques: Automated exposure control, adjustment of the mA and/or kV according to patient size, or use of iterative reconstruction technique. FINDINGS: Right parietal approach shunt catheter noted tip terminating within the right frontal periventricular white matter.. Ventriculomegaly with transverse dimension third ventricle measuring 1.9 cm, previously measuring up to 4 mm. Periventricular hypoattenuation likely combination of microvascular changes and transependymal flow of CSF. Diffuse sulcal effacement. There is crowding of the ambient cisterns. Remaining cisterns are grossly patent. Visualized intraorbital contents appear unremarkable. Visualized paranasal sinuses are clear. The surrounding soft tissues are normal. CT/CT head/brain wo con IMPRESSION: Acute hydrocephalus. No acute bleed. Discussed with the Dr Guidry telephone at 1640 hours 02/12/2025 Impression dictated by: Cholo Schuster M.D. 02/12/2025 4:42 PM Dictation Location: [place] [address] Electronically authenticated by: [id number] Y Date: 02/12/2025 16:42
--- NOTE | 2025-02-12 16:19 | ECG_ITS ---
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 Measurements Intervals [place] Rate: 85 P: 50 GA: 160 QRS: 17 QRSD: 90 T: 7 QT: 360 QTc: 402 Interpretive Statements 1100 Sinus rhythm 2420 RSR (QR) in lead V1/V2, consistent with right ventricular conduction delay 4068 Nonspecific [place] abnormality 9130 borderline ECG No previous ECG available for comparison Electronically Signed On 02-12-2025 17:18:02 EDT by JASON YEH M.D.
[2025-02-12 16:37] LABS: Hematocrit 44.7 % (36.0-48.0); Hemoglobin 15.3 g/dL (12.0-16.0); Immature Granulocytes Abs Auto 0.06 10^3/uL (0.00-0.03); Immature Granulocytes Pct Auto 0.7 % (0.0-0.5); Lymphocytes Absolute Auto 2.0 10^3/uL (1.2-3.8); Mean Corpuscular HGB Conc 34.2 g/dL (29.9-35.2); Mean Corpuscular Hemoglobin 31.5 pg (26.7-34.0); Mean Corpuscular Volume 92.0 fL (81.0-99.0); Platelet Count 294 10^3/uL (150-450); Red Blood Count 4.86 10^6/uL (4.20-5.40); White Blood Count 8.5 10^3/uL (4.0-11.0)
[2025-02-12 16:47] LABS: Ammonia 11 umol/L (11-32)
[2025-02-12 16:51] LABS: Alanine Aminotransferase 20 U/L (14-59); Albumin Globulin Ratio 1.0; Albumin Level 4.3 g/dL (3.4-5.0); Alkaline Phosphatase 82 U/L (46-116); Anion Gap 19.0; Aspartate Amino Transferase 14 U/L (15-37); Blood Urea Nitrogen 15.0 mg/dL (7.0-18.0); Calcium 9.5 mg/dL (8.5-10.1); Carbon Dioxide 22.3 mmol/L (21.0-32.0); Chloride 100 mmol/L (98-107); Estimated GFR (African America >60 (>=60 mL/min/1.73m^2); Estimated GFR (Non-African Ame >60 (>=60 mL/min/1.73m^2); Globulin 4.5 g/dL; Glucose 92 mg/dL (74-106); Potassium 4.3 mmol/L (3.5-5.1); Sodium 137 mmol/L (136-145); Total Protein 8.8 g/dL (6.4-8.2)
--- NOTE | 2025-02-12 17:23 | ED.GENADUL1 ---
HPI HPI - General Adult General Chief complaint: Headache Stated complaint: CONFUSED Time Seen by Provider: 02/12/25 16:18 Source: family Mode of arrival: walk-in History of Present Illness HPI narrative: The patient brought to us by the family for concern of confusion in addition to the fact that the patient herself was complaining of a headache since this morning. Frontal associated no nausea no vomiting according to the patient is 6 out of 10. The patient family mentioned that she was not acting right this morning and she was not making the right decision like for example she was trying to get out of the window instead of the door when she was getting out of the house, the patient also has been pacing continuously since the morning The patient have a history of hydrocephalus managed in [facility] but according to the family it was more than 10 years ago The patient did had a shunt placed Related Data Home Medications ?Medication ?Instructions ?Recorded ?Confirmed ascorbic acid (vitamin C) 1,000 mg 1 g PO DAILY 01/27/23 02/12/25 tablet (Vitamin C) cetirizine 10 mg capsule (All Day 10 mg PO DAILY 01/27/23 02/12/25 Allergy (cetirizine)) cholecalciferol (vitamin D3) 125 125 mcg PO DAILY 01/27/23 02/12/25 mcg (5,000 unit) tablet (Vitamin D3) dextroamphetamine-amphetamine 10 10 mg PO DAILY 01/27/23 02/12/25 mg tablet (Adderall) estradiol 1 mg tablet 1 mg PO DAILY 01/27/23 02/12/25 etodolac 400 mg tablet (Lodine) 400 mg PO BID 01/27/23 02/12/25 linaclotide 72 mcg capsule 72 mcg PO QAM 01/27/23 02/12/25 (Linzess) magnesium 100 mg tablet 400 mg PO DAILY 01/27/23 02/05/23 montelukast 10 mg tablet 10 mg PO DAILY 01/27/23 02/12/25 (Singulair) rosuvastatin 5 mg tablet (Crestor) 5 mg PO DAILY 01/27/23 02/12/25 dextromethorphan IR 45 1 tab PO BID 02/12/25 02/12/25 mg-bupropion ER 105 mg biphasic tablet (Auvelity) duloxetine 60 mg capsule,delayed mg PO 02/12/25 release famciclovir 500 mg tablet mg 02/12/25 famotidine 40 mg tablet mg 02/12/25 magnesium oxide 400 mg (241.3 mg mg 02/12/25 magnesium) tablet rimegepant 75 mg disintegrating mg 02/12/25 tablet (Nurtec ODT) semaglutide (weight loss) 0.25 0.25 mg subcut QWEEK 02/12/25 02/12/25 mg/0.5 mL subcutaneous pen injector (Wegovy) spironolactone 25 mg tablet mg 02/12/25 tramadol 50 mg tablet mg 02/12/25 Previous Rx's ?Medication ?Instructions ?Recorded hydrocodone 5 mg-acetaminophen 325 1 tab PO Q6H PRN pain #10 tabs 02/05/23 mg tablet Allergies Allergy/AdvReac Type Severity Reaction Status Date / Time No Known Drug Allergies Allergy Verified 02/12/25 16:00 Opioid HPI Opioid Management Most Recent Opioid Data: Last Pain Scale 6 Today, 16:05 Review of Systems ROS Status of ROS 10 or more systems reviewed and unremarkable except as noted in history and below [facility] Medical History (Updated 02/12/25 @ 17:41 by Sol Lovell MD) Arthritis ?M19.90 - Unspecified osteoarthritis, unspecified site (ICD-10) Stomach ulcer ?K25.9 - Gastric ulcer, unspecified as acute or chronic, without hemorrhage or perforation (ICD-10) Neurofibromatosis ?Q85.00 - Neurofibromatosis, unspecified (ICD-10) Hydrocephalus ?G91.9 - Hydrocephalus, unspecified (ICD-10) High cholesterol ?E78.00 - Pure hypercholesterolemia, unspecified (ICD-10) Cholelithiasis ?K80.20 - Calculus of gallbladder without cholecystitis without obstruction (ICD-10) Surgical History (Updated 01/27/23 @ 15:16 by Kimberly Ramirez RN) S/P ventricular shunt placement ?Z98.2 - Presence of cerebrospinal fluid drainage device (ICD-10) H/O: hysterectomy ?Z90.710 - Acquired absence of both cervix and uterus (ICD-10) Family History (Updated 01/27/23 @ 14:44 by Kimberly Ramirez RN) Other Family history of cancer Family history of stroke Hypoglycemia Social History (Updated 01/27/23 @ 15:08 by Kimberly Ramirez, RN) Within the past year, how often did you have a drink containing alcohol: never Score interpretation: A score less than 3 is consistent with normal alcohol consumption. 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 General: Well-appearing and in no apparent distress. Skin: Warm, dry, no pallor noted. No rash. Head: Normocephalic, atraumatic. Neck: Supple, non-tender. Eye: Pupils are equal, round and EOMI. No scleral icterus. Ears, Nose, Mouth, and Throat: TM are clear, no nasal mucosal hypertrophy. Oral mucosa is moist, no posterior oropharynx erythema, uvula is mid-line Cardiovascular: Regular Rate and Rhythm without murmur, gallop or rub. Respiratory: No accessory muscle use or respiratory distress. Lungs are clear to auscultation, no wheezing, rales or rhonchi Chest Wall: no tenderness Back: No midline thoracic or lumbar vertebral tenderness. No CVA tenderness Musculoskeletal: normal ROM, no calf or popliteal tenderness, no lower extremity edema/swelling GI: Abdomen is soft, non-distended. Normal bowel sounds. No masses appreciated. No tenderness to palpation. No rebound, guarding, or rigidity noted. Neurological: A&O x4. No cranial nerve dysfunction observed. Constitutional Vital Signs, click to edit/add: Last Vital Signs Temp 98.3 F 02/12/25 16:05 Pulse 80 02/12/25 17:30 Resp 15 02/12/25 17:30 BP 132/89 02/12/25 17:30 Pulse Ox 97 02/12/25 16:05 O2 Del Method Room Air 02/12/25 16:05 Course Vital Signs Vital signs: Vital Signs Temperature 98.3 F 02/12/25 16:05 Pulse Rate 95 H 02/12/25 16:05 Respiratory Rate 16 02/12/25 16:05 Blood Pressure 144/91 H 02/12/25 16:05 Pulse Oximetry 97 02/12/25 16:05 Oxygen Delivery Method Room Air 02/12/25 16:05 Temperature 98.3 F 02/12/25 16:05 Pulse Rate 80 02/12/25 17:30 Respiratory Rate 15 02/12/25 17:30 Blood Pressure 132/89 02/12/25 17:30 Pulse Oximetry 97 02/12/25 16:05 Oxygen Delivery Method Room Air 02/12/25 16:05 Medical Decision Making MDM Narrative Medical decision making narrative: The patient CBC and chemistry showed no acute pathology And the patient the bedside was acting appropriately but she was complaining of the headache and according to the family she was repeating herself at home as well which was not obvious here on exam The patient CT of the head shows a picture of possible acute hydrocephalus when compared to the study done in 2021 The patient's shunt was done in [facility] and and I did call [facility] and discussed the case with from neurosurgery and the patient was accepted to be admitted under Hospitalist Lab Data Labs: Lab Results 02/12/25 Range/Units 16:24 WBC 8.5 (4.0-11.0) 10^3/uL RBC 4.86 (4.20-5.40) 10^6/uL Hgb 15.3 (12.0-16.0) g/dL Hct 44.7 (36.0-48.0) % MCV 92.0 (81.0-99.0) fL MCH 31.5 (26.7-34.0) pg MCHC 34.2 (29.9-35.2) g/dL RDW 13.6 (11.0-15.0) % Plt Count 294 (150-450) 10^3/uL MPV 10.6 (9.5-13.5) fL Neut % (Auto) 67.4 (43.0-75.0) % Lymph % (Auto) 23.7 (20.5-60.0) % [place] % (Auto) 6.7 (1.7-12.0) % Eos % (Auto) 0.6 L (0.9-7.0) % Baso % (Auto) 0.9 (0.2-2.0) % Neut # (Auto) 5.7 (1.4-6.5) 10^3/uL Lymph # (Auto) 2.0 (1.2-3.8) 10^3/uL [place] # (Auto) 0.6 (0.3-0.8) 10^3/uL Eos # (Auto) 0.1 (0.0-0.7) 10^3/uL Baso # (Auto) 0.1 (0.0-0.1) 10^3/uL Abs Immat Gran (auto) 0.06 H (0.00-0.03) 10^3/uL Imm/Tot Granulo (auto) 0.7 H (0.0-0.5) % Sodium 137 (136-145) mmol/L Potassium 4.3 (3.5-5.1) mmol/L Chloride 100 (98-107) mmol/L Carbon Dioxide 22.3 (21.0-32.0) mmol/L Anion Gap 19.0 BUN 15.0 (7.0-18.0) mg/dL Creatinine 0.84 (0.55-1.02) mg/dL Est GFR ( Amer) >60 (>=60 mL/min/1.73m^2) Est GFR (Non-Af Amer) >60 (>=60 mL/min/1.73m^2) BUN/Creatinine Ratio 17.9 Glucose 92 (74-106) mg/dL Calcium 9.5 (8.5-10.1) mg/dL Total Bilirubin 0.4 (0.2-1.0) mg/dL AST 14 L (15-37) U/L ALT 20 (14-59) U/L Alkaline Phosphatase 82 (46-116) U/L Ammonia 11 (11-32) umol/L Total Protein 8.8 H (6.4-8.2) g/dL Albumin 4.3 (3.4-5.0) g/dL Globulin 4.5 g/dL Albumin/Globulin Ratio 1.0 Serum HCG, Qual Negative (NEGATIVE) Ethanol Quant <3 mg/dL Discharge Plan Discharge Chief Complaint: Headache Clinical Impression: Hydrocephalus, Headache, Confusion Patient Disposition: Xfer Acute [facility] Discharge location: [facility]
[2025-02-12] MEDS: KETOROLAC TROMETHAMINE 30 MG/ML VIAL 15 MG IVP (17:33)
[2025-02-12 20:32] LABS: Glucose Urine UA NEGATIVE (NEGATIVE)
[2025-02-12 20:41] LABS: Cannabinoid Screen Urine NEGATIVE (NEGATIVE); Methamphetamines Screen Urine NEGATIVE (NEGATIVE); Tricyclic Antidepressant Urine NEGATIVE (NEGATIVE)
[2025-02-12] MEDS: METHYLPREDNISOLONE SOD SUCC PF 125 MG/2 ML VIAL IVP (21:24)
[2025-02-12] MEDS: DIPHENHYDRAMINE HCL 50 MG/ML VIAL IVP (21:24)
[2025-02-13] VITALS (57 sets, daily range): BP systolic 115–156; BP diastolic 60–117; PULSE 79–136; O2SAT 92–100
[2025-02-13] MEDS: KETOROLAC TROMETHAMINE 30 MG/ML VIAL 15 MG IVP (07:45)
[2025-02-13] MEDS: 0.9 % SODIUM CHLORIDE 1,000 ML 1000 ML IV (07:46)
[2025-02-13 07:53] LABS: Hematocrit 43.5 % (36.0-48.0); Hemoglobin 14.8 g/dL (12.0-16.0); Immature Granulocytes Abs Auto 0.06 10^3/uL (0.00-0.03); Immature Granulocytes Pct Auto 0.8 % (0.0-0.5); Lymphocytes Absolute Auto 1.2 10^3/uL (1.2-3.8); Mean Corpuscular HGB Conc 34.0 g/dL (29.9-35.2); Mean Corpuscular Hemoglobin 31.4 pg (26.7-34.0); Mean Corpuscular Volume 92.2 fL (81.0-99.0); Platelet Count 247 10^3/uL (150-450); Red Blood Count 4.72 10^6/uL (4.20-5.40); White Blood Count 7.9 10^3/uL (4.0-11.0)
[2025-02-13 08:12] LABS: Alanine Aminotransferase 17 U/L (14-59); Albumin Globulin Ratio 0.9; Albumin Level 4.1 g/dL (3.4-5.0); Alkaline Phosphatase 78 U/L (46-116); Anion Gap 19.7; Aspartate Amino Transferase 15 U/L (15-37); Blood Urea Nitrogen 24.0 mg/dL (7.0-18.0); Calcium 9.3 mg/dL (8.5-10.1); Carbon Dioxide 20.7 mmol/L (21.0-32.0); Chloride 101 mmol/L (98-107); Estimated GFR (African America >60 (>=60 mL/min/1.73m^2); Estimated GFR (Non-African Ame >60 (>=60 mL/min/1.73m^2); Globulin 4.4 g/dL; Glucose 151 mg/dL (74-106); Potassium 4.4 mmol/L (3.5-5.1); Sodium 137 mmol/L (136-145); Total Protein 8.5 g/dL (6.4-8.2)
== END 2025-02-13 09:28 | disposition short-term general hospital (02) ==
PROVIDERS: Emergency Provider Emergency Medicine; PCP Internal Medicine
DX: G91.9 Hydrocephalus, unspecified (principal); Z98.2 Presence of cerebrospinal fluid drainage device; R51.9 Headache, unspecified; R41.0 Disorientation, unspecified
CPT/HCPCS: 36415; 70450; 80053; 80307; 80320; 81003; 82140; 84703; 85025; 93005; 96374; 96375; 96376; 99285; J1200; J1885; J2919

== ENCOUNTER 2025-05-05 07:29 | Emergency (ER) | payer BC, SELFPAY ==
[2025-05-05] VITALS (13 sets, daily range): BP systolic 133–173; BP diastolic 70–107; PULSE 75–86; TEMP 36.6; O2SAT 97–100; BMI 34.6
--- NOTE | 2025-05-05 07:39 | XR_ITS ---
The [address] [address] Patient Name: GARRY GRIGSBY MRN: [id number] date: 1980 Sex: F Assigned Patient Location: ER Current Patient Location: ER Accession/Order Number: [id number] Exam Date: 05/05/2025 07:45 Report Date: 05/05/2025 08:21 At the request of: CHIP PERKINS MD Procedure: XR wrist RT min 3V XR wrist RT min 3V 05/05/2025 7:51 AM SIGNS AND SYMPTOMS: ^fall PROTOCOL: Frontal, lateral, and oblique radiographs of the right wrist COMPARISON: None FINDINGS: There is a transversely oriented fracture of the distal radius without intra-articular extension. This is dorsally displaced by 1.2 cm. There is a minimally displaced fracture across the base of the ulnar styloid. The radiocarpal joint and carpal rows are preserved. There is diffuse soft tissue swelling. XR/XR wrist RT min 3V IMPRESSION: There is a transversely oriented fracture of the distal radius without intra-articular extension. This is dorsally displaced by 1.2 cm. There is a minimally displaced fracture across the base of the ulnar styloid. Impression dictated by: Eloy Pearson M.D. 05/05/2025 8:21 AM Dictation Location: [place] [address] Electronically authenticated by: [id number] Y Date: 05/05/2025 08:21
--- NOTE | 2025-05-05 07:40 | ED.GENADUL1 ---
HPI HPI - General Adult General Chief complaint: Fall Stated complaint: RT ARM PAIN FALL Time Seen by Provider: 05/05/25 07:31 Source: patient Mode of arrival: walk-in History of Present Illness HPI narrative: 44-year-old female presents for right wrist pain. She fell on ice this morning. She is right-handed. No other injury was sustained. No pain in the elbow or shoulder and she did not hit her head. Related Data Home Medications ?Medication ?Instructions ?Recorded ?Confirmed ascorbic acid (vitamin C) 1,000 mg 1 g PO DAILY 01/27/23 02/12/25 tablet (Vitamin C) cetirizine 10 mg capsule (All Day 10 mg PO DAILY 01/27/23 02/12/25 Allergy (cetirizine)) cholecalciferol (vitamin D3) 125 125 mcg PO DAILY 01/27/23 02/12/25 mcg (5,000 unit) tablet (Vitamin D3) dextroamphetamine-amphetamine 10 10 mg PO DAILY 01/27/23 02/12/25 mg tablet (Adderall) estradiol 1 mg tablet 1 mg PO DAILY 01/27/23 02/12/25 etodolac 400 mg tablet (Lodine) 400 mg PO BID 01/27/23 02/12/25 linaclotide 72 mcg capsule 72 mcg PO QAM 01/27/23 02/12/25 (Linzess) magnesium 100 mg tablet 400 mg PO DAILY 01/27/23 02/05/23 montelukast 10 mg tablet 10 mg PO DAILY 01/27/23 02/12/25 (Singulair) rosuvastatin 5 mg tablet (Crestor) 5 mg PO DAILY 01/27/23 02/12/25 dextromethorphan IR 45 1 tab PO BID 02/12/25 02/12/25 mg-bupropion ER 105 mg biphasic tablet (Auvelity) duloxetine 60 mg capsule,delayed mg PO 02/12/25 release famciclovir 500 mg tablet mg 02/12/25 famotidine 40 mg tablet mg 02/12/25 magnesium oxide 400 mg (241.3 mg mg 02/12/25 magnesium) tablet rimegepant 75 mg disintegrating mg 02/12/25 tablet (Nurtec ODT) semaglutide (weight loss) 0.25 0.25 mg subcut QWEEK 02/12/25 02/12/25 mg/0.5 mL subcutaneous pen injector (Wegovy) spironolactone 25 mg tablet mg 02/12/25 tramadol 50 mg tablet mg 02/12/25 Previous Rx's ?Medication ?Instructions ?Recorded hydrocodone 5 mg-acetaminophen 325 1 tab PO Q6H PRN pain #10 tabs 02/05/23 mg tablet hydrocodone 5 mg-acetaminophen 325 1 tab PO Q6H PRN pain 5 days #20 05/05/25 mg tablet tabs Allergies Allergy/AdvReac Type Severity Reaction Status Date / Time No Known Drug Allergies Allergy Verified 02/12/25 16:00 Opioid HPI Opioid Management Most Recent Opioid Data: Last Pain Scale 8 Today, 08:30 Ur Phencyclidine Scrn, (NEGATIVE) Negative 02/12/25, 20:18 Review of Systems ROS Narrative A ten point review of systems is negative except as noted above. [facility] Medical History (Updated 05/05/25 @ 08:45 by Dixon Calderon MD) Arthritis ?M19.90 - Unspecified osteoarthritis, unspecified site (ICD-10) Stomach ulcer ?K25.9 - Gastric ulcer, unspecified as acute or chronic, without hemorrhage or perforation (ICD-10) Neurofibromatosis ?Q85.00 - Neurofibromatosis, unspecified (ICD-10) Hydrocephalus ?G91.9 - Hydrocephalus, unspecified (ICD-10) High cholesterol ?E78.00 - Pure hypercholesterolemia, unspecified (ICD-10) Cholelithiasis ?K80.20 - Calculus of gallbladder without cholecystitis without obstruction (ICD-10) Surgical History (Updated 01/27/23 @ 15:16 by Kimberly Ramirez RN) S/P ventricular shunt placement ?Z98.2 - Presence of cerebrospinal fluid drainage device (ICD-10) H/O: hysterectomy ?Z90.710 - Acquired absence of both cervix and uterus (ICD-10) Family History (Updated 01/27/23 @ 14:44 by Kimberly Ramirez RN) Other Family history of cancer Family history of stroke Hypoglycemia Social History (Updated 01/27/23 @ 15:08 by Kimberly Ramirez RN) Within the past year, how often did you have a drink containing alcohol: never Score interpretation: A score less than 3 is consistent with normal alcohol consumption. 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 Head:Normocephalic, atraumatic Eye: Normal conjunctiva, no drainage Ears, Nose, Mouth, and Throat: oral mucosa is moist. Nares patent. Cardiovascular:Regular Rate and Rhythm Respiratory:Patient is in no distress, no accessory muscle use, lungs are clear to auscultation, no wheezing, rales or rhonchi Back:non-tender GI: Soft and nontender Musculoskeletal: Deformity present at right wrist. Skin intact. Fingers have full range of motion. Capillary refill is brisk Neurological:A&O, normal speech Psychiatric:Cooperative Constitutional Vital Signs, click to edit/add: Last Vital Signs Temp 98 F 05/05/25 07:33 Pulse 78 05/05/25 08:45 Resp 23 H 05/05/25 08:45 BP 137/90 05/05/25 08:45 Pulse Ox 98 05/05/25 08:45 O2 Del Method Room Air 05/05/25 07:33 Course Vital Signs Vital signs: Vital Signs Temperature 98 F 05/05/25 07:33 Pulse Rate 85 05/05/25 07:33 Respiratory Rate 20 05/05/25 07:33 Blood Pressure 173/107 H 05/05/25 07:33 Pulse Oximetry 98 05/05/25 07:33 Oxygen Delivery Method Room Air 05/05/25 07:33 Temperature 98 F 05/05/25 07:33 Pulse Rate 78 05/05/25 08:45 Respiratory Rate 23 H 05/05/25 08:45 Blood Pressure 137/90 05/05/25 08:45 Pulse Oximetry 98 05/05/25 08:45 Oxygen Delivery Method Room Air 05/05/25 07:33 Medical Decision Making MDM Narrative Medical decision making narrative: Displaced distal radius fracture is identified as well as a minimally displaced distal ulnar fracture. The following procedure was performed by me after obtaining consent. The patient was given 10 mg of IV etomidate resulting in excellent level of sedation. The displaced fracture was then manually reduced without difficulty. Sugar-tong splint applied by me, she is neurovascularly intact before and after the procedure. Total sedation time 10 minutes. Sling also placed, application checked by me and found to be appropriate, she is neurovascularly intact. She will follow-up with orthopedics and was prescribed [place]. Treatment diagnosis and follow-up were discussed with the patient and her family. Differential Diagnosis Differential Diagnosis: Fracture, sprain Imaging Data Right wrist: My impression: Postreduction x-ray on my interpretation shows moderate degree of reduction of the displaced fracture. Radiologist's impression: ITS Impressions Wrist X-Ray 05/05/25 07:39 IMPRESSION: There is a transversely oriented fracture of the distal radius without intra-articular extension. This is dorsally displaced by 1.2 cm. There is a minimally displaced fracture across the base of the ulnar styloid. Impression dictated by: Eloy Pearson M.D. 05/05/2025 8:21 AM Dictation Location: [place] [address] Electronically authenticated by: [id number] Y Date: 05/05/2025 08:21 Discharge Plan Discharge Chief Complaint: Fall Clinical Impression: Fracture of right wrist Patient Disposition: Home, Self-Care Time of Disposition Decision: 08:45 Condition: Good Mode of Transportation: Private Vehicle Prescriptions / Home Meds: New hydrocodone-acetaminophen 5-325 mg tablet 1 tab PO Q6H PRN (Reason: pain) 5 Days Qty: 20 0RF No Action dextroamphetamine-amphetamine [Adderall] 10 mg tablet 10 mg PO DAILY All Day Allergy (cetirizine) 10 mg capsule 10 mg PO DAILY rosuvastatin [Crestor] 5 mg tablet 5 mg PO DAILY estradiol 1 mg tablet 1 mg PO DAILY Rx Instructions: off 1 week; repeat cycle Linzess 72 mcg capsule 72 mcg PO QAM etodolac [Lodine] 400 mg tablet 400 mg PO BID magnesium 100 mg tablet 400 mg PO DAILY montelukast [Singulair] 10 mg tablet 10 mg PO DAILY ascorbic acid (vitamin C) [Vitamin C] 1,000 mg tablet 1 g PO DAILY cholecalciferol (vitamin D3) [Vitamin D3] 125 mcg (5,000 unit) tablet 125 mcg PO DAILY hydrocodone-acetaminophen 5-325 mg tablet 1 tab PO Q6H PRN (Reason: pain) Qty: 10 0RF Auvelity 45-105 mg tablet, IR and ER, biphasic 1 tab PO BID Rx Instructions: administer at least 8 hours apart famotidine 40 mg tablet tramadol 50 mg tablet magnesium oxide 400 mg (241.3 mg magnesium) tablet Nurtec ODT 75 mg tablet,disintegrating spironolactone 25 mg tablet famciclovir 500 mg tablet duloxetine 60 mg capsule,delayed release(DR/EC) PO Wegovy 0.25 mg/0.5 mL pen injector 0.25 mg subcut QWEEK Print Language: Maori Instructions: Wrist Fracture in Adults (ED) Referrals: ALEX WHITAKER DO [Primary Care Provider, Family Practice] - 1 week Nam Raman DO [Physician, Orthopedics] - As soon as possible
--- NOTE | 2025-05-05 08:23 | XR_ITS ---
The [place] [id number] Patient Name: GARRY GRIGSBY MRN: [id number] date: 1980 Sex: F Assigned Patient Location: ER Current Patient Location: ED.MAIN Accession/Order Number: [id number] Exam Date: 05/05/2025 08:40 Report Date: 05/05/2025 09:07 At the request of: CHIP PERKINS MD Procedure: XR wrist RT 2V XR wrist RT 2V 05/05/2025 8:43 AM SIGNS AND SYMPTOMS: ^post reduction PROTOCOL: Lateral radiograph of the right wrist COMPARISON: Radiograph from the same date FINDINGS: There is a transversely oriented fracture of the distal radius which is now anteriorly subluxed by 1 cm. There is accompanying diffuse soft tissue swelling. XR/XR wrist RT 2V IMPRESSION: There is a transversely oriented fracture of the distal radius which is now anteriorly subluxed by 1 cm. Impression dictated by: Eloy Pearson M.D. 05/05/2025 9:07 AM Dictation Location: [place] [address] Electronically authenticated by: [id number] Y Date: 05/05/2025 09:07
[2025-05-05] MEDS: ETOMIDATE 20 MG/10 ML VIAL IVP (08:28)
--- OUTSIDE RECORDS SUMMARY | 2025-05-05 08:39 | XMS_ITS | CCD ---
Author Organization [facility] Care Team Providers Care Recruiter Manager Name Role Phone MD Emmanuel Laughlin Attending Provider NO FAMILY, PHYSICIAN Primary Care Provider Unava ilJR Monroe Pablo Primary Care Provider [phone] OTILIA, DR NATARAJAN Attending Unavailable KARASIK, DR [...] Unavailable Monroe Whitaker MD Primary Care Provider MRAIA RICE Attending Unavailable TALON TILLEY Attending Unavailable Migel Polanco MD Unavailable [phone] Monroe Whitaker DO Primary Care Provider Gorge ARANGO, Alanna Glover Unavailable Catracho GONZALEZ, [place] Unavailable Unavailab YNAET Irene Attending Unavailable MIGEL POLANCO Referring Unavailable [...] MONROE L Primary Care Unavailable HARSHA OJEDA Referring Unavailable VALONE, MONROE Cecilio Primary Care Unavailable HARSHA OJEDA Attending Unavailable LEONELONE, MONROE Cecilio Primary Care Unavailable Monroe Whitaker JR Primary Care Provider [phone] Maria Flowers APRN Attending Provider Julianne Mesa DO, Charles L Primary Care Provider EDWARD ISLAS Consulting Unavailable SIMÓN PADILLA Primary Care Unavailable EDWARD ISLAS Admitting Unavailable EDWARD ISLAS Attending Unavailable NERY BIRCH Consulting Unavailable Monroe Whitaker MD Primary Care Provider MONROE WHITAKER JR Referring Unavailable JULIANNE BRODERICK, MONROE Greer Primary Care Unavailable EDWARD ISLAS Attending Unavailable MONROE WHITAKER JR Referring Unavailable VALONE , MONROE Greer Primary Care Unavailable Julianne Mesa DO, Charles L Primary Care Provider Allergies Allergy ClassificationReported Allergen(s)Allergy TypeDate of OnsetReaction(s) Facility (1 source)No Known Medication Allergies; Translations: [No Known Medication Allergies]Propensity to adverse reactions (disorder)[facility] Medications Current Medications MedicationDrug Class(es)DatesSig (Normalized)Sig (Original)acetaminophen 500 mg oral tablet (5 sources)Start: 02-14-2025 End: 36-11-4224ygxq 2 tablets by mouth onceacetaminophen (TYLENOL EXTRA STRENGTH) 500 mg tablet Take 2 tablets (1,000 mg total) by mouth once for 1 dose. 02/14/2025 02/14/2025 ActiveStart: 02-13-2025 End: 21-55-7432opyl 1 tablet by mouth every four hours as needed for ixtp870 mg, oral, Every 4 hours PRN, mild pain - pain scale 1-3, fever of 38.6, Starting on Wed02/13/25at 182, Do not give for fever if patient received acetaminophen containing products within 4 hours.Start: 99-53-9429oynz 1 tablet by mouth every six mg, oral, Every 6 hours, First dose on Wed11/20/24 at 2044, If ordered PRN for pain, nurse is permitted to administer this medication for higher pain scores based on patient preference? Yesacetaminophen 325 mg / HYDROcodone bitartrate 5 mg oral tablet (3 sources)Opioid AgonistStart: 02-14-2025 End: 37-52-5196BYDCUuowjgz-acetaminophen (NORCO) 5-325 mg per tablet Indications: Shunt malfunction, initial encounter , Acute post-operative pain Take 1-2 tablets by mouth every 6 (six) hours as needed for pain for up to 7 days. Max Daily Amount: 8 tablets 25 tablet 02/14/2025 02/21/2025 ActiveStart: 02-13-2025 End: 51-64-1840nokl 1 tablet by mouth every four hours as needed for pain HYDROcodone-acetaminophen (NORCO) 5-325 mg per tablet 1 tabletalbuterol 0.83 mg/ml inhalation solution (1 source)beta2-Adrenergic AgonistStart: 59-06-9591dfqq 2.5 mg by inhalation every six hours as gwcbsa29 hr amphetamine aspartate 2.5 mg / amphetamine sulfate 2.5 mg / dextroamphetamine saccharate 2.5 mg / dextroamphetamine sulfate 2.5 mg extended release oral capsule (5 sources)Central Nervous System Stimulanttake 1 capsule by mouth in the morning, then take 1 capsule by mouth every twenty-four hoursamphetamine- dextroamphetamine XR (Adderall XR) 10 MG 24 hr capsule Take 10 mg by mouth in the morning. Activeascorbic acid 100 mg oral tablet (10 sources)Vitamin CStart: 24-07-8225xnwb 1 tablet by mouth once dailyAscorbic Acid (Vitamin C) 100 mg tablet Active 100 MG PO Daily January 16, 2025 12:00am Complies with drug therapytake 1 tablet by mouth in the morning, then take 1 tablet by mouth at bedtime, then take 1 tablet by mouth once dailyascorbic acid, vitamin C, (VITAMIN C) 1000 mg tablet Take 1 tablet (1,000 mg total) by mouth in themorning and 1 tablet (1,000 mg total) before bedtime. 1 TABLET ORALLY ONCE A DAY. Activeascorbic acid (Vitamin C) 100 MG chewable tablet Vitamin C Active ascorbic acid 60 mg / cuprous oxide 2 mg / dl-alpha tocopheryl acetate 30 mg / lutein 6 mg / zinc oxide 15 mg oral capsule (1 source)Vitamin CMultiple Vitamins-Minerals (Hair Skin Nails) capsule as directed Orally ActiveAUVELITY 45-105 mg tablet, IR & ER, biphasic (1 source)Start: 01-82-4329RAXXUIYM 45-105 mg tablet, IR & ER, biphasic 03/23/2025 Activeazelastine hydrochloride 0.137 mg/actuat / fluticasone propionate 0.05 mg/actuat metered dose nasalspray (4 sources)Corticosteroid, Histamine-1 Receptor Antagonisttake 1 spray(s) nasal route in the morningazelastine-fluticasone (DYMISTA) 137-50 mcg/spray spray,non- aerosol Administer 1 spray into each nostril in the morning. ActiveB Complex capsule (5 sources)B Complex capsule as directed Orally ActiveB complex-vitamin C-folic acid (Nephro-Akira Rx) 1-60-300 mg-mg-mcg tablet (16 sources)take 1 tablet by mouth once daily at breakfastB complex-vitamin C- folic acid (Nephro-Akira Rx) 1-60-300 mg-mg-mcg tablet Take 1 tablet by mouth onc e daily with breakfast. ActiveB-complex with vitamin C tablet (4 sources)take 1 tablet by mouth in the morningB-complex with vitamin C tablet Take 1 tablet by mouth in the morning. Activetake 1 tablet by mouth in the morningB-complex with vitamin C tablet Take 1 tablet by mouth in the morning. benzocaine 15 mg / menthol 3.6 mg oral lozenge (1 source)Standardized Chemical AllergenStart: 90-60-5841uxwmoq 5 mg disintegrating oral tablet (10 sources)Start: 92-80-8085Xltdbo 5,000 mcg tablet,disintegrating Active MCG PO January 16, 2025 12:00am Complies with drug therapyStart: 76-73-9721pmdf 1 tablet by mouth in the morningBiotin 5000 MCG sublingual tablet Take 1 tablet by mouth in the morning. 10/22/2022 Activebiotin 5,000 mcg tablet,chewable Chew 1 tablet and swallow in the morning. Activebisacodyl 10 mg rectal suppository (1 source)Stimulant LaxativeStart: 02-15-2025 End: 97-71-599696 mg, rectal, As needed, constipation, if no BM within 6 hours of administering Milk of Magnesia, Starting on Erica 02/15/25 at 0000, Start Post- Op Day 2 Look-alike/sound-alike medication - verify indication for use.Start: 02-15-2025 End: 48-29-267645 mg, rectal, As needed, constipation, if no BM within 6 hours of administering Milk of Magnesia, Starting on Erica 02/15/25 at 0000, Start Post- Op Day 2 Look-alike/sound-alike medication - verify indication for use. calcitriol 0.0005 mg oral capsule (3 sources)Vitamin D3 Analogtake 1 capsule by mouth once dailycalcitriol (Rocaltrol) 0.5 MCG capsule Take 0.5 mcg by mouth Daily Activecetirizine hydrochloride 10 mg oral capsule (10 sources)Histamine-1 Receptor AntagonistStart: 63-44-6574swzx 1 capsule by mouth once daily as neededCetirizine (Zyrtec) 10 mg capsule Active 10 MG PO Daily as needed January 16, 2025 12:00am Complies with drug therapycetirizine (ZyrTEC) 10 MG chewable tablet Chew 1 tablet (10 mg total) and swallow. Active cholecalciferol 0.05 mg oral capsule (20 sources)Vitamin DStart: 27-81-9741lekx 1 capsule by mouth once daily Cholecalciferol (Vitamin D3) 50 mcg (2,000 unit) capsule Active 50 MCG PO Daily January 16, 2025 12:00am Complies with drug therapyStart: 60-65-0144miag 25 ug by mouth once daily25 mcg, oral, Daily, First dose on Wed11/20/24 at 1130, Phase II/On Unittake 1 capsule by mouth in the morningcholecalciferol, vitamin D3, 2,000 units capsule Take 1 capsule (2,000 Units total) by mouth in themorning. Activetake 1 tablet by mouth once dailycholecalciferol (Vitamin D3) 25 mcg (1000 units) tablet Take 1 tablet (1,000 Units) by mouth once daily. Activechromium picolinate 0.1 mg / inulin 2000 mg chewable tablet (1 source)Start: 85-67-4242Cirigs-Chromium Picolinate (Fiber Select Gummies) 2- 100 gram-mcg tablet,chewable Active TAB PO January 16, 2025 12:00am Complies with drug therapyCOLLAGEN-VITAMIN C-BIOTIN PO (5 sources)COLLAGEN-VITAMIN C-BIOTIN PO Take by mouth Active Dextromethorphan-Bupropion (1 source)Start: 64-08-9598wcyd 1 tablet by mouth twice dailyDextromethorphan- Bupropion (Auvelity) 45-105 mg tablet, IR and ER, biphasic Active 1 TAB PO Twice daily January 16, 2025 12:00am Complies with drug therapydiphenhydrAMINE (1 source)Histamine-1 Receptor AntagonistStart: 90-26-8004qmrm 25 mg intravenously every six hours as zwudfw60 mg, intravenous, Every 6 hours PRN, itching, Starting on Wed11/20/24 at 1100, Phase II/On Unitdocusate sodium 100 mg oral capsule (1 source)Start: 81-44-5612offi 100 mg by mouth twice daily for vybofmceahwf853 mg, oral, 2 times daily, First dose on Wed11/20/24 at 1130, Phase II/On Unit, Bowel Regimen - for prevention of constipationdocusate sodium 50 mg / sennosides, alf 8.6 mg oral tablet (5 sources)Start: 05-31-0262hgyl 1 tablet by mouth in the morningsennosides- docusate sodium (SENOKOT-S) 8.6-50 mg Take 1 tablet by mouth in the morning and 1 tabletbefore bedtime. 02/14/2025 ActiveStart: 02-14-2025 End: 30-52-4750jxay 1 tablet by mouth twice daily for diarrhea, then take 1 tablet by mouth once daily for diarrhea1 tablet, oral, 2 times daily, First dose on Wed02/14/25 at 0900, Start Post-Op Day 1: Hold for diarrheaDULoxetine 60 mg delayed release oral capsule (20 sources)Serotonin and Norepinephrine Reuptake InhibitorStart: 63-25-2197eomr 1 capsule by mouth once daily at bedtimeDuloxetine 60 mg capsule,delayed release(DR/EC) Active 60 MG PO Daily at bedtime January 16, 2025 12:00am Complies with drug therapyStart: 77-85-5220foxu 60 mg by mouth once daily60 mg, oral, Daily, First dose on Wed11/20/24 at 1130, Phase II/On Unit, Do not crush or chew.estradiol 1 mg oral tablet (20 sources)EstrogenStart: 01-43-9551cxrt 1 tablet by mouth in the morning estradioL (ESTRACE) 1 mg tablet Take 1 tablet (1 mg total) by mouth in the morning. 01/05/2025 ActiveStart: 85-87-2552btog 1 mg by mouth twice daily1 mg, oral, 2 times daily, First dose on Wed11/20/24 at 1130, Phase II/On UnitStart: 44-88-3334dqbs 1 tablet by mouth once dailyestradiol (Estrace) 1 MG tablet Indications: Vaginal dryness TAKE 1 TABLET BY MOUTH EVERY DAY 90 tablet 3 05/19/2024 Activeetodolac 500 mg oral tablet (5 sources)Nonsteroidal Anti-inflammatory DrugStart: 30-66-3412qiwo 1 tablet by mouth every other dayetodolac (Lodine) 500 MG tablet Take 500 mg by mouth Daily Patient states she is taking 1 every other day 04/26/2023 Activefamciclovir 500 mg oral tablet (20 sources)Herpes Simplex Virus Nucleoside Analog DNA Polymerase Inhibitor Start: 02-07-9442ihdr 1 tablet by mouth onceFamciclovir 500 mg tablet Active 500 MG PO Once January 16, 2025 12:00am Complies with drug therapyStart: 05-01-2023 take 1 tablet by mouth every other dayfamciclovir (Famvir) 500 MG tablet Take 500 mg by mouth Daily States she is taking 1 every other day 05/01/2023 Active take 1 tablet by mouth three times dailyfamciclovir (Famvir) 500 mg tablet Take 1 tablet (500 mg) by mouth 3 times a day. Activefamotidine 40 mg oral tablet (20 sources)Histamine-2 Receptor AntagonistStart: 06-86-9979lnpe 40 mg by mouth once daily40 mg, oral, Daily, First dose on Wed11/20/24 at 1130, Phase II/On UnitStart: 98-71-7294tuca 1 tablet by mouth at bedtimefamotidine (Pepcid) 40 MG tablet Take 40 mg by mouth at bedtime 04/08/2023 ActiveFiber Select Gummies chewable tablet (5 sources)Fiber Select Gummies chewable tablet as directed Orally Active fluticasone propionate 0.05 mg/actuat metered dose nasal spray (6 sources)CorticosteroidStart: 90-96-7115suet 1 spray(s) nasal route once daily Fluticasone Propionate 50 mcg/actuation spray,suspension Active 1 SPRAY INTRANASAL Daily January 16, 2025 12:00am administer into each nostril Complies with drug therapytake 1 spray(s) nasal route in the morningfluticasone (Flonase) 50 MCG/ACT nasal spray Administer 1 spray into each nostril in the morning. Sh owen gently. Before first use, prime pump. After use, clean tip and replace cap.. Activegabapentin 300 mg oral capsule (1 source)Anti-epileptic AgentStart: 60-94-2085thht 1 capsule by mouth every eight ocrpe749 mg, oral, Every 8 hours scheduled, First dose on Wed11/20/24 at 2200, Capsules may be opened and sprinkled on food (eg, applesauce, orange juice, pudding1 ml heparin sodium, porcine 5000 unt/ml injection (2 sources)Unfractionated Heparin, Anti-coagulantStart: 62-93-1104jhhffy 5000 [IU] by subcutaneous injection every eight hours5,000 Units, subcutaneous, Every 8 hours, First dose on Wed11/20/24 at 2100, Phase II/On UnitStart: 11-20-2024 End: 46-11-0975ryjshw 5000 [IU] by subcutaneous injection once5,000 Units, subcutaneous, Once, On Wed11/20/24 at 0615, For 1 dose, Preprocedure, Given in preop, Indications: deep vein thrombosis prevention0.5 ml HYDROmorphone hydrochloride 1 mg/ml prefilled syringe (3 sources)Opioid AgonistStart: 50.5 mg, intravenous, Every 2 hour PRN, pain severe (7-10), second line, pain breakthrough, Startingon Wed11/20/24 at 1100, Phase II/On UnitStart: 11-20-2024 End: 50.5 mg, intravenous, Every 5 min PRN, pain severe (7-10), first line, Starting on Wed11/20/24 at 0920, Recovery (only), Max total of 4 mg regardless of dose.Start: 50.5 mg, intravenous, Every 5 min PRN, pain severe (7-10), first line, Starting on Wed08/07/24 at 1129, For 3 doses, Recovery (only), Max total of 4 mg regardless of dose.hydroxychloroquine sulfate 200 mg oral tablet (5 sources)Antimalarial, Antirheumatic Agenttake 1 tablet by mouth in the morninghydroxychloroquine (Plaquenil) 200 MG tablet Take 1 tablet by mouth in the morning. Activelidocaine 0.04 mg/mg medicated patch (1 source)Antiarrhythmic, Amide Local AnestheticStart: 13-47-5419wywnf 1 dose transdermal route once daily1 patch, transdermal, Administer over 12 Hours, Daily, First dose on Wed11/20/24 at 2045, Apply to left chest wall. Patch will remain on for 12 hours, then removed for [address] patch directly over any surgical incisions or wounds.linaclotide 0.072 mg oral capsule (20 sources)Guanylate Cyclase-C AgonistStart: 29-21-7326Fkxfonb 72 MCG capsule 12/31/2022 Activemagnesium hydroxide 80 mg/ml oral suspension (1 source)Start: 02-15-2025 End: mL, oral, 2 times daily PRN, if no BM by post-op day 2, Starting on Wed02/15/25 at 0000, Start Post-Op Day 2: DO NOT use in Renal/Dialysis patients Shake well.Start: 02-15-2025 End: mL, oral, 2 times daily PRN, if no BM by post-op day 2, Starting on Wed02/15/25 at 0000, Start Post-Op Day 2: DO NOT use in Renal/Dialysis patients Shake well.magnesium oxide 400 mg oral tablet (20 sources)Start: 83-78-1394drcnwldtf oxide (MAGOX) 400 mg tablet Take 1 tablet (400 mg total) by mouth. 02/16/2025 ActiveStart: 91-20-8499bveo 1 tablet by mouth once daily1 tablet (400 mg of magnesium oxide), oral, Daily, First dose on Wed11/20/24 at 1130, Phase II/On Unitmecobalamin 1 mg chewable tablet (1 source)Start: 11-14-4060qcbq 1 tablet by mouth once dailyMecobalamin (Vitamin B12) 1,000 mcg tablet,chewable Active 1000 MCG PO Daily January 16, 2025 12:00 am Complies with drug therapyMeperidine (1 source)Opioid AgonistStart: 85-27-221028.5 mg, intravenous, Every 10 min PRN, shivering, Starting on Wed08/07/24 at 1129, Recovery (only)methocarbamol 500 mg oral tablet (2 sources)Muscle RelaxantStart: 11-20-2024 End: 56-12-0196zfli 1 tablet by mouth every six hours as aihvfi841 mg, oral, Every 6 hours PRN, muscle spasms, Starting on Wed11/21/24 at 0540montelukast 10 mg oral tablet (20 sources)Leukotriene Receptor AntagonistStart: 78-50-8213cvoe 1 tablet by mouth once dailyMontelukast 10 mg tablet Active 10 MG PO Daily January 16, 2025 12:00am Complies with drug therapyMultiple Vitamin (Multi Vitamin) tablet (5 sources)Multiple Vitamin (Multi Vitamin) tablet 1 (one) time each day at the same time ActiveMultiple Vitamins-Minerals (Hair Skin Nails) capsule (4 sources)Multiple Vitamins-Minerals (Hair Skin Nails) capsule as directed Orally ActiveMultivitamin tablet (1 source)Start: 74-08-1687bfsg 1 tablet by mouth once dailyMultivitamin tablet Active 1 TAB PO Daily January 16, 2025 12:00am Complies with drug therapymv- min/iron/folic/calcium/vitK (WOMEN'S MULTIVITAMIN ORAL) (4 sources)take 1 tablet by mouth once in the morningmv- min/iron/folic/calcium/vitK (WOMEN'S MULTIVITAMIN ORAL) Take 1 tablet by mouth in the morning. Activetake 1 tablet by mouth once in the morningmv- min/iron/folic/calcium/vitK (WOMEN'S MULTIVITAMIN ORAL) Take 1 tablet by mouth in the morning.2 ml naloxone hydrochloride 1 mg/ml prefilled syringe (1 source)Opioid AntagonistStart: 58-82-2814amenaxfe (NARCAN) 4 mg/actuation spray,non-aerosol nasal spray (4 sources)Start: 68-26-0619ugqgaqlj (NARCAN) 4 mg/actuation spray,non-aerosol nasal spray Administer 1 spray (4 mg total) intoalternating nostrils as needed for opioid reversal. 1 each 02/14/2025 ActiveStart: 81-71-4207agvnucsj (NARCAN) 4 mg/actuation spray,non-aerosol nasal spray Administer 1 spray (4 mg total) intoalternating nostrils as needed for opioid reversal. 1 each 02/14/2025 ondansetron ODT (Zofran-ODT) disintegrating tablet 4 mg (1 source)Start: 80-90-0282xkta 1 tablet by mouth every six hours as needed ondansetron ODT (Zofran-ODT) disintegrating tablet 4 mgoxyCODONE hydrochloride 5 mg oral tablet (6 sources)Opioid AgonistStart: 00-97-0545dedc 1 tablet by mouth every six hours for painoxyCODONE (Roxicodone) 5 mg immediate release tablet Indications: Acute postoperative pain Take 1 tablet (5 mg) by mouth every 6 hours if needed for moderate pain (4 - 6). 28 tablet 11/21/2024 ActiveStart: 48-55-7895fedx 1 tablet by mouth every four hours as rmnoao29 mg, oral, Every 4 hours PRN, pain severe (7-10), first line, Starting on Wed11/20/24 at 1100, Phase II/On Unit, If ordered PRN for pain, nurse is permitted to administer this medication for higherpain scores based on patient preference? YesStart: 46-74-0175xjxr 1 tablet by mouth every four hours as needed5 mg, oral, Every 4 hours PRN, pain moderate (4-6), first line, Starting on Wed11/20/24 at 1100, Phase II/On Unit, If ordered PRN for pain, nurse is permitted to administer this medication for higherpain scores based on patient preference? YesStart: 13-98-0615jpkh 1 tablet by mouth every four hours as needed5 mg, oral, Every 4 hours PRN, pain mild (1- 3), first line, Starting on Wed08/07/24 at 1233, Phase II/On Unit, When able to take oral medications., If ordered PRN for pain, nurse is permitted to admin ister this medication for higher pain scores based on patient preference? Yes oxygen (O2) therapy (2 sources)Start: 94-77-6353wgorouvzuy, Continuous PRN - O2/gases, other, Starting on Wed11/20/24 at 1100, Phase II/On Unit, Wean oxygen as tolerated, discontinue when room air pulse oximetry measures greater than 90%., Device: Nasal Cannula, Rate in liters per minute: 2 LPM, Keep O2 Sat Above: 90%Start: 04-93-7006cyplakxuwc, Continuous - 02/gases, First dose on Wed08/07/24 at 1145, Recovery (only), Discontinue when criteria met, Device: Nasal Cannula, Rate in liters per minute: 2 LPM, Keep O2 Sat Above: 92%promethazine (Phenergan) 6.25 mg in sodium chloride 0.9% 50 mL IV (1 source)Start: .25 mg, intravenous, Administer over 15 Minutes, Once as needed, Nausea/vomiting, second line, Starting on Wed08/07/24 at 1233, For 1 dose, Phase II/On Unitpsyllium seed, with sugar, (FIBER ORAL) (4 sources)take 1 tablet by mouth in the morningpsyllium seed, with sugar, (FIBER ORAL) Take 1 tablet by mouth in the morning. Activetake 1 tablet by mouth in the morningpsyllium seed, with sugar, (FIBER ORAL) Take 1 tablet by mouth in the morning.rimegepant 75 mg disintegrating oral tablet (6 sources)Start: 93-37-7369xbsj 1 tablet by mouth every other weekRimegepant (Nurtec Odt) 75 mg tablet,disintegrating Active 75 MG PO .COMPLEX January 16, 2025 12:00am 75 mg orally at the onset of a migraine. do not repeat. no more than 2 days/week; Complies with drug therapyrosuvastatin calcium 5 mg oral tablet (20 sources)HMG-CoA Reductase InhibitorStart: 81-26-8918ypua 1 tablet by mouth once dailyRosuvastatin 5 mg tablet Active 5 MG PO Daily January 16, 2025 12:00am Complies with drug therapyStart: 69-15-1240ifkj 5 mg by mouth once daily 5 mg, oral, Daily, First dose on Wed11/20/24 at 2100, Phase II/On Unit semaglutide, weight loss, (WEGOVY) 0.25 mg/0.5 mL pen injector (4 sources)semaglutide, weight loss, (WEGOVY) 0.25 mg/0.5 mL pen injector Inject 0.5 mL (0.25 mg total) under the skin every 7 days. Activesemaglutide, weight loss, (WEGOVY) 0.25 mg/0.5 mL pen injector Inject 0.5 mL (0.25 mg total) under t he skin every 7 days.spironolactone 25 mg oral tablet (1 source)Aldosterone AntagonistStart: 11-05-1362neyrjjjiexhkyo (ALDACTONE) 25 mg tablet Take 1 tablet (25 mg total) by mouth. 01/30/2025 ActivetraMADol hydrochloride 50 mg oral tablet (2 sources)Opioid AgonistStart: 08-07-2024 End: 13-90-7186ppmo 1 tablet by mouth twice daily as needed for paintraMADol (Ultram) 50 mg tablet Indications: Melanoma of back (Multi) Take 1 tablet (50 mg) by mouth2 times a day as needed for severe pain (7 - 10) for up to 5 days. 5 tablet 08/07/2024 08/12/2024 ActiveVitamin B Complex tablet (1 source)Start: 59-65-7572wfdv 1 tablet by mouth once dailyVitamin B Complex tablet Active 1 TAB PO Daily January 16, 2025 12:00am Complies with drug therapyvitamin b12 0.5 mg oral tablet (9 sources)Vitamin H07iwne 1 tablet by mouth in the morningcyanocobalamin (vitamin B-12) 500 MCG tablet Take 1 tablet (500 mcg total) by mouth in the morning.ActiveCyanocobalamin (Vitamin B 12) 100 MCG lozenge as directed Orally Activevitamin e 180 mg oral capsule (20 sources)Start: 95-07-2948lgwf 1 capsule by mouth once dailyVitamin E (Dl, Acetate) 180 mg (400 unit) capsule Active 180 MG PO Daily January 16, 2025 12:00am Complies with drug therapytake 1 capsule by mouth in the morningvitamin E, dl,tocopheryl acet, (vitamin E, dl, acetate,) 180 mg (400 unit) capsule Take 1 capsule (400 Units total) by mouth in the morning. Activetake 1 capsule by mouth once dailyvitamin E 180 mg (400 unit) capsule Take 1 capsule (400 Units) by mouth once daily. Active Completed/Discontinued Medications MedicationDrug Class(es)DatesSig (Normalized)Sig (Original)calcium chloride 0.0014 meq/ml / potassium chloride 0.004 meq/ml / sodium chloride 0.103 meq/ml / sodium lactate 0.028 meq/ml injectable solution (4 sources)Start: 02-13-2025 End: 89-72-8492vrny 2 mL intravenously every hour50 mL/hr, intravenous, Continuous, Starting on Wed02/13/25 at 1400, Pre-op, If fluid restriction isnot indicated, infuse at a rate up to 5 mL/kg/hr not to exceed the total replacement volume (2 ml/kg/hr) from the time NPO status was initiated.Start: 11-20-2024 End: 94-10-8150uvkc 50 mL intravenously every hour50 mL/hr, intravenous, Continuous, Starting on Wed11/20/24 at 0615, For 1 dayStart: 08-07-2024 End: 39-83-6131xgsq 100 mL intravenously every tbzy373 mL/hr, intravenous, Continuous, Starting on Wed08/07/24 at 1145, For 1 day, Recovery (only)ceFAZolin 2000 mg injection (1 source)Cephalosporin AntibacterialStart: 11-20-2024 End: 58-53-3078lipn 2 g intravenously every eight hours2 g, intravenous, at 100 mL/hr, Administer over [...] systemic manifestations of infection)? No, Indications: Surgical ProphylaxisceFAZolin (ANCEF) 2,000 mg in sodium chloride 0.9 % 50 mL IVPB W/ADAPTER (1 source)Start: 02-13-2025 End: 79-69-5749amck 2000 mg intravenously every eight hours2,000 mg, intravenous, at 100 mL/hr, Administer over 30 Minutes, Every 8 hours, First dose on Wed02/13/25 at 2330, For 2 doses, Pharmacy to adjust per renal function; Start 8 hours after pre-op dose for total of 3 doses including pre-op dose. Infuse all doses within 24 hours of initial dose. For patient less than 120 kg. For Vial-2-Bag: Attach bag and vial to adapter - Use immediately after activa ting; dissolve drug prior to administration., Indication: Surgical prophylaxis1 ml fentaNYL 0.05 mg/ml injection (5 sources)Opioid AgonistStart: 02-13-2025 End: mcg, intravenous, Every 5 min PRN, Pain Scale 6-10, Starting on Wed02/13/25 at 1654, PACU (only), Up to a maximum dose of 150 mcg. Look-alike/sound-alike medication - verify indication for use.Start: 11-20-2024 End: mcg, intravenous, Every 5 min PRN, pain moderate (4-6), first line, Starting on Wed11/20/24 at 0920, Recovery (only), Max total of 200 micrograms regardless of dose., If ordered PRN for pain, nurse is permitted to administer this medication for higher pain scores based on patient preference? YesStart: 10-09-2024 End: 53-63-1351ecboclktqns, Once PRN Procedure, Starting on Wed10/09/24 at 1120, For 1 dose, IntraprocedureStart: mcg, intravenous, Every 5 min PRN, pain moderate (4-6), first line, Starting on Wed08/07/24 at 1129, For 3 doses, Recovery (only), Max total of 200 micrograms regardless of dose., If ordered PRN for pain, nurse is permitted to administer this medication for higher pain scores based on patient preference? Yesfludeoxyglucose F-18 injection 14.1 millicurie (1 source)Start: 09-26-2024 End: .1 millicurie, intravenous, Once in imaging, Starting on Wed09/26/24 at 0913, For 1 dose, Administer 60 minutes and up to 3 hours prior to imaging unless otherwise indicated.gadoterate meglumine (Dotarem) 0.5 mmol/mL contrast injection 15 mL (1 source)Start: 09-26-2024 End: mL (rounded from 15.2 mL = 0.2 mL/kg 76 kg Order-specific weight), intravenous, Once in imaging,Starting on Wed09/26/24 at 1247, For 1 dose, Administer undiluted as rapid I.V. bolus injectionglucagon (rdna) 1 mg injection (1 source)Antihypoglycemic AgentStart: 02-13-2025 End: mg, intramuscular, As needed, low blood sugar, blood glucose less than 70 mg/dL and unconscious or NPO without IV access., Starting on Wed02/13/25 at 1821, If conscious and not NPO, immediately follow with meal tray or high protein (7Grams) snack if tray not available. If NPO, initiate IV 5% Dextr ose/Water at 100 mL/hr and contact prescriber for additional orders. If blood glucose is not greater than 70 mg/dL after initial treatment, repeat treatment. 150 ml glucose 50 mg/ml injection (3 sources)Start: 02-13-2025 End: g, oral, As needed, low blood sugar, blood glucose less than 70 mg/dL, Starting on Wed02/13/25 at 1821, If patient conscious and taking PO. If blood glucose is not greater than 70 mg/dL after initial treatment, repeat treatment.Start: 02-13-2025 End: mL, intravenous, As needed, low blood sugar, blood glucose less than 70 mg/dL and unconscious orNPO with IV access, Starting on Wed02/13/25 at 1821, Push over 1-3 minutes STAT. If conscious and not NPO, immediately follow with meal tray or high protein (7 grams) snack if tray not available. If NPO, initiate 5% dextrose in water at 100 mL/hr and contact prescriber for additional orders. If blood glucose is not greater than 70 mg/dL after initial treatment, repeat treatment. VESICANT (RED) Warning: HYPERTONIC solution. Start: 02-13-2025 End: 82-06-1483szow 70 mg intravenously every svwj067 mL/hr, intravenous, Continuous PRN, blood glucose less than 70 mg/dL, Starting on Wed02/13/25 at 1821, For 365 days, Use immediately following dextrose 50% or glucagon treatment for patients who are unconscious or NPO. Contact prescriber for additional orders. If blood glucose is not greater than 70 mg/dL after initial treatment, repeat treatment.5 ml midazolam 1 mg/ml injection (2 sources)BenzodiazepineStart: 10-09-2024 End: 84-58-5382yfdrrtfbzbb, Once PRN Procedure, Starting on Wed10/09/24 at 1120, For 1 dose, Vyoedanumzhkhp883 ml niCARdipine hydrochloride 0.2 mg/ml injection (1 source)Dihydropyridine Calcium Channel BlockerStart: 02-13-2025 End: ml ondansetron 2 mg/ml injection (3 sources)Serotonin-3 Receptor AntagonistStart: 02-13-2025 End: 05-86-7061qtnb 4 mg intravenously every six hours as needed for nausea and vomiting4 mg, intravenous, Every 6 hours PRN, nausea, vomiting, Starting on Wed02/13/25 at 1821, Intravenous administration preferred to be given over 2-5 minutes.Start: 02-13-2025 End: mg, intravenous, Once, On Wed02/13/25 at 1430, For 1 dose, Pre- op, Intravenous administration preferred to be given over 2-5 minutes.Start: mg, intravenous, Once as needed, nausea/vomiting, first line, Starting on Wed08/07/24 at 1129, For 1 dose, Recovery (only), When administering via IV Push, administer over 3-5 minutes.pantoprazole 40 mg delayed release oral tablet (2 sources)Proton Pump InhibitorStart: 02-14-2025 End: 66-70-749355 mg, oral, Every morning before breakfast, First dose on Wed02/14/25 at 0945, Look-alike/sound-alike medication - verify indication for use. If patient is receiving enteral feeding, consider alternative PPI or continue IV pantoprazole until the delayed-release tablet can be taken orally, Indication: GERDStart: 11-21-2024 End: 88-68-6546mkbs 40 mg by mouth once daily before zxadhdytj56 mg, oral, Daily before breakfast, First dose on Wed11/21/24 at 0600, Phase II/On Unit, Do not crush, chew, or split.polyethylene glycol 3350 55262 mg powder for oral solution (2 sources)Osmotic LaxativeStart: 02-13-2025 End: 53-59-596732 g, oral, Daily, First dose on Wed02/13/25 at 1830, PACU & Post-op, Look-alike/sound-alike medication - verify indication for use. Dissolve 1 packet (17 gm) in 8 ounces of water, juice, soda, coffee or tea.Start: 25-33-6528140 ml sodium chloride 9 mg/ml prefilled syringe (3 sources)Start: 02-13-2025 End: 09-21-5259tdhh 1 dose by mouth once3 mL, intravenous, Every 12 hours scheduled, First dose on Wed02/13/25 at 2100, Once tolerating oral intakeStart: 11-20-2024 End: 43-00-5680wlld 1 [IU] by mouth xvhu670 mL/hr, intravenous, Continuous, Starting on Wed11/20/24 at 1130, For 5 hours, Phase II/On Unit,DC once tolerating oral ioamkgKl-17s-moscpofsusf (Lymphoseek) injection 0.61 millicurie (1 source)Start: 08-07-2024 End: .61 millicurie, intradermal, Once in imaging, Starting on Wed08/07/24 at 0738, For 1 dose, If using for lymphoscintigraphy, administer immediately and up to 15 hours prior to imaging unless otherwise indicated. No imaging for breast injections. Problems Active Problems Problem ClassificationProblemDateDocumented DateEpisodic/ChronicBiliary tract disease (3 sources)Biliary calculus; Translations: [Calculus of gallbladder without cholecystitis without obstruction]Onset: 879978-25-7250Yeidxhod Complication of device; implant or graft (7 sources)Complication associated with device; Translations: [Breakdown (mechanical) of other specified internal prosthetic devices, implants and grafts, initial encounter]Onset: 963165-42-9413RrhfaesqZrpuvcph mellitus without complication (1 source)Other abnormal glucose; Translations: [OTHER ABNORMAL GLUCOSE]Onset: 43-73-3234FbfscomaVauefxrui of lipid metabolism (9 sources)Pure hypercholesterolemia, unspecified; Translations: [Hyperlipidemia]Onset: 860319-95-0012TdwwtptRqtmzctkye disorders (20 sources)Gastroesophageal reflux disease without esophagitis; Translations: [Gastro-esophageal reflux disease without esophagitis]Onset: 08-07-2024 48-82-1791ThormozJjnummyc; including migraine (14 sources)Migraine, unspecified, not intractable, without status migrainosus; Translations: [Migraine]Onset: 15-41-4692KewrlxmNhapoufzlhfvv and screening for infectious disease (1 source)Encounter for screening for human papillomavirus (HPV); Translations: [ENC SCREENING HUMAN PAPILLOMAVIRUS]Onset: 32-07-1184DowutlmhHblthrptt of skin (20 sources)Malignant melanoma of back; Translations: [Malignant melanoma of other part of trunk]Onset: 256290-71-1496OuavwlnEajh disorders (7 sources)Depressive disorder; Translations: [Depression]Onset: 11-19-2024 19-35-6416NsibplwRbidcfx system congenital anomalies (10 sources)Neurofibromatosis syndrome; Translations: [Neurofibromatosis, unspecified]Onset: 936896-93-3294UweueclPjrswfxmlmftcz (1 source)Primary generalized (osteo)arthritis; Translations: [Primary generalized (osteo)arthritis]Onset: 54-86-1561YojtjhkJlgrt aftercare (1 source)Other alf (current) drug therapy; Translations: [OTH DETENTION CURRENT DRUG THERAPY]Onset: 65-84-9336GqapnosvFzacx connective tissue disease (1 source)Myalgia, unspecified site; Translations: [MYALGIA UNSPECIFIED SITE] Onset: 31-82-0417LottidfqUovpw gastrointestinal disorders (8 sources)Irritable bowel syndrome; Translations: [Irritable bowel syndrome without diarrhea]Onset: 242036-39-6513DrsouxySuglj nervous system disorders (9 sources)Organic sleep-wake cycle disorder; Translations: [Circadian rhythm sleep disorder, unspecified type]Onset: 035208-98-5692CabtpjqZxdkl nervous system disorders (9 sources)Bilateral carpal tunnel syndrome; Translations: [Carpal tunnel syndrome, bilateral upper limbs]Onset: 170652-40-1477BfaaminVqoqh nervous system disorders (1 source)Hydrocephalus; Translations: [Hydrocephalus, unspecified]02-13-2025 ChronicOther nervous system disorders (1 source)Hydrocephalus, unspecified; Translations: [Hydrocephalus, unspecified] Onset: 31-18-8715SgpttexBgpjw nervous system disorders (2 sources)Ventriculoperitoneal shunt in situ; Translations: [Presence of cerebrospinal fluid drainage device]58-60-6826TyjthtbByhiy nervous system disorders (2 sources)Acute postoperative pain; Translations: [Other acute postprocedural pain]46-09-9535EgbwalxbNqywu nervous system disorders (4 sources)H/O: migraine; Translations: [Personal history of other diseases of the nervous system and sense organs]Onset: 764648-43-9339RlvserjzUzugn nervous system disorders (1 source)Other acute postprocedural pain; Translations: [Other acute postprocedural pain]Onset: 96-82-0989PbameqdiTidxy nutritional; endocrine; and metabolic disorders (16 sources)Obesity caused by energy imbalance; Translations: [Class 1 obesity due to excess calories with bodymass index (BMI) of 31.0 to 31.9 in adult]Onset: 163590-16-5755AhuzkmxBpfne screening for suspected conditions (not mental disorders or infectious disease) (8 sources)Encounter for screening mammogram for malignant neoplasm of breast; Translations: [Encounter for screening for malignant neoplasm of cervix]Onset: 78-48-5474WgbxjbzhSpjfl upper respiratory disease (2 sources)Mediastinal mass; Translations: [Other diseases of mediastinum, not elsewhere classified]50-36-3858RhgapgrqWgkjj upper respiratory disease (2 sources)Other diseases of mediastinum, not elsewhere classified; Translations: [Other diseases of mediastinum, not elsewhere classified]Onset: 20-73-5357EgsabuogBodpgvby codes; unclassified (1 source)Family history of malignant neoplasm of breast; Translations: [FAMILY HX MALIG NEOPLASM OF BREAST]Onset: 96-43-7979SvvppjabMnnleopf codes; unclassified (3 sources)History of excision of intestinal structure; Translations: [Other specified postprocedural states]Onset: 930950-48-1118VtyeakbqBprjptqy codes; unclassified (1 source)Altered mental statusOnset: 05-21-3509BlczqtprQzcmvwzf codes; unclassified (1 source)Pain, unspecified; Translations: [Pain, unspecified]Onset: 02-13-2025 EpisodicUnclassified (4 sources)Autogenerated ProblemOnset: 299073-89-6956Tttyapxlobad (1 source)ems/PLATER HELPER shunt malfunctionOnset: 02-13-2025 Past or Other Problems Problem ClassificationProblemDateDocumented DateEpisodic/ChronicMood disorders (3 sources)Mood disordersOnset: Other and unspecified benign neoplasm (12 sources)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; Translations: [Other benign neoplasm of connective and other soft tissue of thorax]Onset: 724108-22-8353WwuapodfGkeqt nervous system disorders (1 source)Personal history of other diseases of the nervous system and sense organs; Translations: [PERSONAL HX OTH DZ NS AND SENSE ORGANS]Onset: 12-10-2021 EpisodicOther nervous system disorders (9 sources)Paresthesia; Translations: [Paresthesia of skin]Onset: 11-02-2023 77-23-0986NohrvjagBwrwq non-epithelial cancer of skin (7 sources)Malignant neoplasm of skin; Translations: [Unspecified malignant neoplasm of skin, unspecified]Onset: 119133-21-1705UdmyefwtRnmtxevw codes; unclassified (11 sources)Insomnia; Translations: [Insomnia, unspecified]Onset: 11-02-2023 10-29-2221DjppiqhvYfgsmvmzpwtn (11 sources)Onset: 09-06-2024 Resolved: Results Test NameValueInterpretationReference RangeFacilityBASIC METABOLIC PANELon 82-79-9946Ozpbx gap [Moles/Vol]11 mmol/LNormal5-15[facility] Comment on above:Performed By: #### BMP #### [facility] ([facility]) [address] [place] [address] VIRCalcium [Mass/Vol]8.7 mg/dLNormal8.5-10.5PLakeHealth Beachwood Medical CenterComment on above:Performed By: #### BMP #### [facility] ([facility]) [address] [place] [address] VIRChloride [Moles/Vol]103 mmol/VXondtj73-520NjwHnurdf [place] HospitalComment on above:Performed By: #### BMP #### [facility] ([facility]) [address] [place] [address] VIRCO2 [Moles/Vol]24 mmol/UXipern21-48HpaVdhopdLakeHealth Beachwood Medical Center Comment on above:Performed By: #### BMP #### [facility] ([facility]) [address] [place] [address] VIRCreatinine [Mass/Vol]0.71 mg/dLNormal0.40-1.00ProThe Surgical Hospital At Southwoodsca Redding HospitalComment on above:Result Comment: METHOD TRACEABLE TO IDMS STANDARDPerformed By: #### BMP #### [facility] ([facility]) [address] [place] [address] VIREGFR (CKD-EPI) NON-RACE DEPENDENT>^90Normal>=60ProThe Surgical Hospital At Southwoodsca Redding HospitalComment on above:Result Comment: Reported eGFR is based on the CKD-EPI 2020 equation that does not use a race coefficient.Performed By: #### BMP #### [facility] ([facility]) [address] [place] [address] VIRGlucose [Mass/Vol]96 mg/yVVgdvgn23-35NwqChbzku [place] HospitalComment on above:Performed By: #### BMP #### [facility] ([facility]) [address] [place] [address] VIRPotassium [Moles/Vol]4.1 mmol/LNormal3.5-5.0ProThe Surgical Hospital At Southwoodsca Redding HospitalComment on above:Performed By: #### BMP #### [facility] ([facility]) [address] [place] [address] VIRSodium [Moles/Vol]138 mmol/EJtzrij298-554CgrJzxtwb [place] HospitalComment on above:Performed By: #### BMP #### [facility] ([facility]) [address] [place] [address] VIRUrea nitrogen [Mass/Vol]18 mg/dLNormal5-23ProThe Surgical Hospital At Southwoodsca Redding HospitalComment on above:Performed By: #### BMP #### [facility] ([facility]) [address] [place] [address] VIRBasic Metabolic Panelon 16-39-0734Zvjjn gap [Moles/Vol]11 mmol/L5 - 15 mmol/LProMedica Health SystemCalcium [Mass/Vol]8.7 mg/dL8.5 - 10.5 mg/dLProMedica Health SystemChloride [Moles/Vol]103 mmol/L98 - 109 mmol/L [facility] IPICO SystemCO2 [Moles/Vol]24 mmol/L22 - 32 mmol/[facility] CenteroMednorthport medical center IPICO SystemCreatinine [Mass/Vol]0.71 mg/dL0.40 - 1.00 mg/dLParkview Health System Comment on above:METHOD TRACEABLE TO IDMS STANDARDEGFR Non-Race Dependent- PINF Newark HospitalComment on above:Reported eGFR is based on the CKD-EPI 2020 equation that does not use a race coefficient. Glucose [Mass/Vol]96 mg/dL65 - 99 mg/dLParkview Health SystemInterpretation and review of laboratory resultsNormalParkview Health SystemPotassium [Moles/Vol] 4.1 mmol/L3.5 - 5.0 mmol/LProMedica Health SystemSodium [Moles/Vol]138 mmol/L134 - 146 mmol/[facility] Medical CenteroMedica Health SystemUrea nitrogen [Mass/Vol]18 mg/dL5 - 23 mg/dL [facility] CenterCT BRAIN WO CONTon 01-93-7778UX BRAIN WO CONTCT BRAIN WO CONT STUDY: CT HEAD WITHOUT CONTRAST CLINICAL HISTORY: post op shunt revision COMPARISON: February 12 Procedure: Multi-detector CT performed through the brain without IV contrast. The lack of IV contrast limits evaluation for acute infarct, mass, infectious process,or demyelinating disease.Automated exposure control was utilized. Findings/Impression: * Interval placement of new shunt from a right parietal approach with some new intracranial and intraventricular air. Shunt terminates within the right lateral ventricle. Small amount of hemorrhage within the right occipital horn Ventricles remain prominent but have definitely diminished in volume compared to prior study No midline shift. Connell-white matter differentiation is preserved. Transependymal migration of CSF improving. All CT scans at this facility use dose modulation, iterative reconstruction, and/or weight based dosing when appropriate to reduce radiation dose to as low as reasonably achievable. Finalized by Raul Cole MD on 02/14/2025 6:18 [facility] CT Head WO contraston 02-14-2025 STUDY: CT HEAD WITHOUT CONTRAST CLINICAL HISTORY: post op shunt revision COMPARISON: February 12 Procedure: Multi-detector CT performed through the brain without IV contrast. The lack of IV contrast limits evaluation for acute infarct, mass, infectious process,or demyelinating disease.Automated exposure control was utilized. Findings/Impression: * Interval placement of new shunt from a right parietal approach with some new intracranial and intraventricular air. Shunt terminates within the right lateral ventricle. Small amount of hemorrhage within the right occipital horn Ventricles remain prominent but have definitely diminished in volume compared to prior study No midline shift. Connell-white matter differentiation is preserved. Transependymal migration of CSF improving. All CT scans at this facility use dose modulation, iterative reconstruction, and/or weight based dosing when appropriate to reduce radiation dose to as low as reasonably achievable. Finalized by Raul Cole MD on 02/14/2025 6:18 AMSRaul Ba MD - 02/14/2025 STUDY: CT HEAD WITHOUT CONTRAST CLINICAL HISTORY: post op shunt revision COMPARISON: February 12 Procedure: Multi-detector CT performed through the brain without IV contrast. The lack of IV contrast limits evaluation for acute infarct, mass, infectious process,or demyelinating disease.Automated exposure control was utilized. Findings/Impression: * Interval placement of new shunt from a right parietal approach with some new intracranial and intraventricular air. Shunt terminates within the right lateral ventricle. Small amount of hemorrhage within the right occipital horn Ventricles remain prominent but have definitely diminished in volume compared to prior study No midline shift. Connell-white matter differentiation is preserved. Transependymal migration of CSF improving. All CT scans at this facility use dose modulation, iterative reconstruction, and/or weight based dosing when appropriate to reduce radiation dose to as low as reasonably achievable. Finalized by Raul Cole MD on 02/14/2025 6:18 AM [employer] TouchRad[employer] Study observation (narrative)[facility] MiamisburgTeleCommunication SystemsCT Head WO contrastOrdered By: Raul Cole on 79-72-1659CsqClngow Health [facility] Work Phone: HEMOGLOBIN AND HEMATOCRIT, BLOODon 02-14-2025 Hematocrit (Bld) [Volume fraction]41.2 %Bdevsa65-34UobRcodlcUC Health Comment on above:Performed By: #### HH #### [facility] ([facility]) [address] [place] [address] VIRHemoglobin (Bld) [Mass/Vol]13.6 g/lDZbfdxy87.7-15.5PLakeHealth Beachwood Medical CenterComment on above:Performed By: #### HH #### [facility] ([facility]) [address] [place] [address] VIRHemoglobin and hematocrit, bloodon 85-31-7793Hmnchmryjj (Bld) [Volume fraction]41.2 %35 - 47 %[facility]ark HospitalHemoglobin (Bld) [Mass/Vol]13.6 g/dL11.7 - 15.5 g/dLNewark HospitalInterpretation and review of laboratory resultsNormalCoatesville Veterans Affairs Medical Center BASIC METABOLIC PANELon 47-50-9184Akugg gap [Moles/Vol]10 mmol/LNormal5-15 [facility] HealthComment on above:Performed By: #### BMP #### [facility] ([facility]) [address] [place] [address] VIRCalcium [Mass/Vol]8.6 mg/dLNormal8.5-10.5PLakeHealth Beachwood Medical CenterComment on above:Performed By: #### BMP #### [facility] ([facility]) [address] [place] [address] VIRChloride [Moles/Vol]104 mmol/KHdmlkf87-489IrfEqvvdd [place] HospitalComment on above:Performed By: #### BMP #### [facility] ([facility]) [address] [place] [address] VIRCO2 [Moles/Vol]24 mmol/NRvupcl08-23GsrPjpvpcLakeHealth Beachwood Medical Center Comment on above:Performed By: #### BMP #### [facility] ([facility]) [address] [place] [address] VIRCreatinine [Mass/Vol]0.81 mg/dLNormal0.40-1.00ProTrumbull Regional Medical CenterComment on above:Result Comment: METHOD TRACEABLE TO IDMS STANDARDPerformed By: #### BMP #### [facility] ([facility]) [address] [place] [address] VIREGFR (CKD-EPI) NON-RACE DEPENDENT>^90Normal>=60ProMedica Redding HospitalComment on above:Result Comment: Reported eGFR is based on the CKD-EPI 2020 equation that does not use a race coefficient.Performed By: #### BMP #### [facility] ([facility]) [address] [place] [address] VIRGlucose [Mass/Vol]106 mg/aYNvhi04-99ZdhKczlko [facility] HospitalComment on above:Performed By: #### BMP #### [facility] ([facility]) [address] [place] [address] VIRPotassium [Moles/Vol]4.1 mmol/LNormal3.5-5.0ProMedica Redding HospitalComment on above:Performed By: #### BMP #### [facility] ([facility]) [address] [place] [address] VIRSodium [Moles/Vol]138 mmol/VTsqday914-143TrxUgipkc [facility] HospitalComment on above:Performed By: #### BMP #### [facility] ([facility]) [address] [place] [address] VIRUrea nitrogen [Mass/Vol]22 mg/dLNormal5-23ProMedica Redding HospitalComment on above:Performed By: #### BMP #### [facility] ([facility]) [address] [place] [address] VIRBEDSIDE GLUCOSEon 63-07-3338Poeruht [Mass/Vol]111 mg/dLHigh 65-99ProMedica Redding HospitalComment on above:Performed By: #### BEDG #### [facility] ([facility]) [address] [place] [address] VIRBasic Metabolic Panelon 67-40-2597Yytey gap [Moles/Vol]10 mmol/L5 - 15 mmol/[facility] SystemCalcium [Mass/Vol]8.6 mg/dL8.5 - 10.5 mg/dLNewark HospitalChloride [Moles/Vol]104 mmol/L98 - 109 mmol/L [facility] HospitalCO2 [Moles/Vol]24 mmol/L22 - 32 mmol/[facility] SystemCreatinine [Mass/Vol]0.81 mg/dL0.40 - 1.00 mg/dLNewark Hospital Comment on above:METHOD TRACEABLE TO IDFL STANDARDEGFR Non-Race Dependent- PINF [facility] HospitalComment on above:Reported eGFR is based on the CKD-EPI 2020 equation that does not use a race coefficient. Glucose [Mass/Vol]106 mg/jYJkdi98 - 99 mg/dLNewark Hospital Interpretation and review of laboratory resultsAbnoCritical access hospital Potassium [Moles/Vol]4.1 mmol/L3.5 - 5.0 mmol/[facility] SystemSodium [Moles/Vol]138 mmol/L134 - 146 mmol/[facility] CampusUrea nitrogen [Mass/Vol]22 mg/dL5 - 23 mg/dLCoatesville Veterans Affairs Medical Center Bedside Glucose *Place/Obtain serum glucose if >500 per glucometer.on 02-13-2025 Glucose [Mass/Vol]111 mg/bAOupq66 - 99 mg/dLNewark Hospital Interpretation and review of laboratory resultsAbnoRiver Falls Area HospitalHEMOGLOBIN AND HEMATOCRIT, BLOODon 70-36-8084Hjdagmsbeh (Bld) [Volume fraction]41.6 %Vmcpal64-89UnoXlbyjvUC HealthComment on above:Performed By: #### HH #### [facility] ([facility]) [address] [place] [address] VIRHemoglobin (Bld) [Mass/Vol]13.5 g/eAQlydcp09.7-15.5PLakeHealth Beachwood Medical CenterComment on above:Performed By: #### HH #### [facility] ([facility]) [address] [place] [address] VIRHemoglobin and hematocrit, bloodon 77-63-5984Fxwxdzdpcr (Bld) [Volume fraction]41.6 %35 - 47 %Newark HospitalHemoglobin (Bld) [Mass/Vol]13.5 g/dL11.7 - 15.5 g/dLNewark HospitalInterpretation and review of laboratory resultsNoJames E. Van Zandt Veterans Affairs [facility] No Panel Informationon 59-46-0715Skxqz TubeAuto ResultedCancer Treatment Centers of AmericaXR SHUNT SERIESon 37-73-0087VK SHUNT SERIESXR SHUNT SERIES Shunt series COMPARISON: CT brain 02/12/2025 HISTORY: Shunt malfunction. AP and lateral skull radiographs as well as AP radiographs of the chest, abdomen and pelvis obtained. IMPRESSION: 1. There is discontinuity of the right parietal approach ventriculostomy catheter at the level of the upper to mid right neck. 2. The distal tip of the catheter overlies the left pelvis. Finalized by Florencio Martinez MD on 02/13/2025 1:00 PMNOhioHealth Riverside Methodist HospitalXR Unspecified body region Views for shunt patencyon 57-10-3223Gjmgw series COMPARISON: CT brain 02/12/2025 HISTORY: Shunt malfunction. AP and lateral skull radiographs as well as AP radiographs of the chest, abdomen and pelvis obtained. IMPRESSION: 1. There is discontinuity of the right parietal approach ventriculostomy catheter at the level of the upper to mid right neck. 2. The distal tip of the catheter overlies the left pelvis. Finalized by Florencio Martinez MD on 02/13/2025 1:00 Florencio Lynn MD - 02/13/2025 Shunt series COMPARISON: CT brain 02/12/2025 HISTORY: Shunt malfunction. AP and lateral skull radiographs as well as AP radiographs of the chest, abdomen and pelvis obtained. IMPRESSION: 1. There is discontinuity of the right parietal approach ventriculostomy catheter at the level of the upper to mid right neck. 2. The distal tip of the catheter overlies the left pelvis. Finalized by Florencio Martinez MD on 02/13/2025 1:00 PM [facility] SystemRadiology Study observation (narrative)[employer] [facility] HospitalXR Unspecified body region Views for shunt patencyOrdered By: Florencio Martinez on 83-50-6792XsqWqftgaGarages2Envy Work Phone: XR CHEST 2 VIEWSon 76-88-3607DY CHEST 2 VIEWS Interpreted By: Raquel Sweeney, STUDY: Chest, 2 views. INDICATION: Signs/Symptoms:post-op. COMPARISON: XR CHEST 1 VIEW 11/21/2024. ACCESSION NUMBER(S): [id number] ORDERING CLINICIAN: HARSHA OJEAD FINDINGS: The cardiomediastinal silhouette size is within normal limits. There is no focal consolidation, edema or pneumothorax. No sizeable pleural effusion. PLATER HELPER shunt catheter tubing visualized projecting over the right hemithorax. Right axillary surgical clips. IMPRESSION: 1. No acute cardiopulmonary process. MACRO: None. Signed by: Raquel Sweeney 12/09/2024 8:14 AM Dictation workstation: [id number] Hospital Cleveland EastBasic metabolic 2000 panelon 08-51-6653Izslu gap [Moles/Vol]12 mmol/L10 - 20 mmol/[facility] HospitalCalcium [Mass/Vol]8.3 mg/dLLow8.6 - 10.3 mg/dLUnUniversity Hospitals Samaritan Medical CenterChloride [Moles/Vol]103 mmol/L98 - 107 mmol/[facility] HospitalCO2 [Moles/Vol]26 mmol/L21 - 32 mmol/[facility] HospitalCreatinine [Mass/Vol]0.7 mg/dL0.50 - 1.05 mg/dLUnUniversity Hospitals Samaritan Medical CentereGFR- [facility] Memorial HospitalComment on above:Calculations of estimated GFR are performed using the 2020 CKD-EPI Study Refit equation without therace variable for the IDMS- Traceable creatinine methods. https://jasn.asnjournals.org/content/early/ASN.6526016011 Glucose [Mass/Vol]100 mg/bPAcsp94 - 99 mg/dLUnUniversity Hospitals Samaritan Medical Center Interpretation and review of laboratory resultsAbnoMemorial Health System Marietta Memorial HospitalPotassium [Moles/Vol]3.8 mmol/L3.5 - 5.3 mmol/[facility] HospitalSodium [Moles/Vol]137 mmol/L136 - 145 mmol/[facility] HospitalUrea nitrogen [Mass/Vol]9 mg/dL6 - 23 mg/dLMartins Ferry HospitalAnion gap [Moles/Vol]12 mmol/EGlvpom12-14NhykussnxhAdena Fayette Medical CenterComment on above:Performed By: #### 83995-6 #### HARLEEN QUINTANA ([id number]) [facility] ([facility]) [address] [place] [address] 52369Cmaikic [Mass/Vol]8.3 mg/dLLow8.6-10.3UnAdena Fayette Medical CenterComment on above:Performed By: #### 38532-1 #### HARLEEN QUINTANA ([id number]) [facility] ([facility]) [address] [place] [address] 45057Jxcoqjnc [Moles/Vol]103 mmol/HMmhbxx51-308RpnjwcthtsAdena Fayette Medical CenterComment on above:Performed By: #### 66818-8 #### HARLEEN QUINTANA ([id number]) [facility] ([facility]) [address] [place] [address] 46558TX8 [Moles/Vol]26 mmol/OQzofys80-68HdrmaannncAdena Fayette Medical CenterComment on above:Performed By: #### 46834-5 #### HARLEEN QUINTANA ([id number]) [facility] ([facility]) [address] [place] [address] 09168Mvmeywurcc [Mass/Vol]0.70 mg/dLNormal0.50-1.05UnAdena Fayette Medical CenterComment on above:Performed By: #### 99637-9 #### HARLEEN QUINTANA ([id number]) [facility] ([facility]) [address] [place] [address] 13328WRH/1.73 sq M.predicted MDRD (S/P/Bld) [Vol rate/Area] mL/min/{1.73_m2}Normal>60UnAdena Fayette Medical CenterComment on above:Result Comment: Calculations of estimated GFR are performed using the 2020 CKD-EPI Study Refit equation without the race variable for the IDMS-Traceable creatinine methods. https://jasn.asnjournals.org/content/early//ASN.2540323325Ltvjggmoe By: #### 77170-9 #### HARLEEN QUINTANA ([id number]) [facility] ([facility]) [address] [place] [address] 99879Ybaxfve [Mass/Vol]100 mg/dVDjqg50-42RqfxcsjnhvAdena Fayette Medical CenterComment on above:Performed By: #### 27394-7 #### HARLEEN QUINTANA ([id number]) [facility] ([facility]) [address] [place] [address] 77456Smhjkftpq [Moles/Vol]3.8 mmol/LNormal3.5-5.3UnAdena Fayette Medical CenterComment on above:Performed By: #### 26499-8 #### HARLEEN QUINTANA ([id number]) [facility] ([facility]) [address] [place] [address] 70013Raonld [Moles/Vol]137 mmol/YKbrxrs908-544OxtxoihkymAdena Fayette Medical CenterComment on above:Performed By: #### 25611-7 #### HARLEEN QUINTANA ([id number]) [facility] ([facility]) [address] [place] [address] 13346Lgwo nitrogen [Mass/Vol]9 mg/dLNormal6-23UnAdena Fayette Medical CenterComment on above:Performed By: #### 10954-8 #### HARLEEN QUINTANA ([id number]) [facility] ([facility]) [address] [place] [address] 18367TXZ panel Auto (Bld)on 78-91-6166Hivqbuzbhva distribution width (RBC) [Ratio]14.4 %11.5 - 14.5 %Martins Ferry HospitalHematocrit (Bld) [Volume fraction]37.5 %36.0 - 46.0 %[facility] Hemoglobin (Bld) [Mass/Vol]12.3 g/dL12.0 - 16.0 g/dLMartins Ferry HospitalInterpretation and review of laboratory resultsAbnormalUGood Samaritan HospitalH (RBC) [Entitic mass]31.1 pg26.0 - 34.0 pgMartins Ferry HospitalMCHC (RBC) [Mass/Vol]32.8 g/dL32.0 - 36.0 g/dLMartins Ferry HospitalMCV (RBC) [Entitic vol]95 fL80 - 100 fLUniOhioHealth Shelby HospitalNucleated RBC/100 WBC (Bld) [Ratio]0 %[facility] Ferry HospitalPlatelets (Bld) [#/Vol]228 10*3/[facility] RBC (Bld) [#/Vol]3.96 10*6/[facility] Hospital Cleveland EastWBC (Bld) [#/Vol]8.8 10*3/[facility] Medical CenterUnUniversity Hospitals Samaritan Medical CenterErythrocyte distribution width (RBC) [Ratio]14.4 %Lvtssn44.5-14.[address] [facility] HospitalComment on above:Performed By: #### 98412-0 #### HARLEEN QUINTANA ([id number]) [facility] ([facility]) [address] [place] [address] 10995Jcaitthwea (Bld) [Volume fraction]37.5 %Lgfpsk95.0-46.[address] Mary HospitalComment on above:Performed By: #### 64690-8 #### HARLEEN QUINTANA ([id number]) [facility] ([facility]) [address] [place], [place] [address]Sigjhkweip (Bld) [Mass/Vol]12.3 g/gELyopns76.0-16.0[facility] Mary HospitalComment on above:Performed By: #### 53004-8 #### FABIOLAIBRACQUEL QUINTANA ([id number]) [facility] ([facility]) [address] [place] [address] 86926BXK (RBC) [Entitic mass]31.[address]Repbqi82.0-34.0[facility] Mary HospitalComment on above:Performed By: #### 58400-5 #### HARLEEN QUINTANA ([id number]) [facility] ([facility]) [address] [place] [address] 71134NXZR (RBC) [Mass/Vol]32.8 g/iGJxzzdg21.0-36.0UnAdena Fayette Medical CenterComment on above:Performed By: #### 38553-6 #### HARLEEN QUINTANA ([id number]) [facility] ([facility]) [address] [place] [address] 23918NMM (RBC) [Entitic vol]95 lXVsojhx59-088UllhadwrmlAdena Fayette Medical CenterComment on above:Performed By: #### 26406-4 #### HARLEEN QUINTANA ([id number]) [facility] ([facility]) [address] [place] [address] 66108Paogvkzmr RBC/100 WBC (Bld) [Ratio]0.0 /100 WBCsNormal0.0-0.[address] [facility] HospitalComment on above:Performed By: #### 49462-2 #### HARLEEN QUINTANA ([id number]) [facility] ([facility]) [address] [place] [address] 55887Eigxfyeud (Bld) [#/Vol]228 x10*3/rBIlqtsq420-105ItaegoxzpqAdena Fayette Medical CenterComment on above:Performed By: #### 26659-3 #### FABIOLAIBRACQUEL QUINTANA ([id number]) [facility] ([facility]) [address] [place] [address] 54758SPE (Bld) [#/Vol]3.96 x10*6/uLLow4.00-5.20UnAdena Fayette Medical CenterComment on above:Performed By: #### 79626-2 #### FABIOLAIBRACQUEL QUINTANA ([id number]) [facility] ([facility]) [address] [place] [address] 03145FAA (Bld) [#/Vol]8.8 x10*3/uLNormal4.4-11.3[facility]. Mary HospitalComment on above:Performed By: #### 37766-7 #### HARLEEN QUINTANA ([id number]) [facility] ([facility]) [address] [place] [address] 59486Qnfmqzysfvx 64-91-9342Ypkwqcbnh [Mass/Vol]2.2 mg/dL1.60 - 2.40 mg/dLUnUniversity Hospitals Samaritan Medical CenterMagnesium [Mass/Vol]2.20 mg/dLNormal 1.60-2.40UnAdena Fayette Medical CenterComment on above:Performed By: #### 32796-1 #### HARLEEN QUINTANA ([id number]) [facility] ([facility]) [address] [place] [address] 24523Tmzbiwamm [Mass/Vol]on 94-68-0259Szdzsqcxqtbrmh and review of laboratory resultsNormWyandot Memorial HospitalniOhioHealth Shelby HospitalNo Panel Informationon 87-39-7212JpoocccmkcMartins Ferry HospitalXR CHEST 1 VIEWon 11-52-7093VM CHEST 1 VIEWInterpreted By: Jose Rogers, STUDY: XR CHEST 1 VIEW; 11/21/2024 10:25 am INDICATION: Signs/Symptoms:chest tube removal. COMPARISON: Chest radiograph 11/21/2024 ACCESSION NUMBER(S): [id number] ORDERING CLINICIAN: PARTHA ROCHA FINDINGS: AP radiograph of the chest was provided. A presumed PLATER HELPER shunt is seen overlying the right base of the neck, right chest wall, and right hemiabdomen with tip not in ewghe-ab-wpmr. Interval removal of left chest tube. CARDIOMEDIASTINAL [...] Jose Rogers 11/21/2024 10:33 AM Dictation workstation: [id number] Hospital Cleveland EastXR CHEST 1 VIEWInterpreted By: Eloy José, STUDY: XR CHEST 1 VIEW; 11/21/2024 5:45 am INDICATION: Signs/Symptoms:s/p posterior mediastinal mass resection. COMPARISON: Portable chest, 20 November 2024 ACCESSION NUMBER(S): [id number] ORDERING CLINICIAN: ARIELLE SHAH TECHNIQUE: Single frontal view of the chest; Portable technique FINDINGS: Left chest tube unchanged in position Right sided central line is unchanged and well positioned No demonstrable pneumothorax or acute infiltrate on either side No large effusion or edema IMPRESSION: No interval change MACRO: None Signed by: Eloy José 11/21/2024 8:35 AM Dictation workstation: [id number] Hospital Cleveland EastComment on above:Order Comment: Tomorrow AMXR Chest Single viewon 91-67-9432Pldncpwd removal of left chest tube. No evidence of acute cardiopulmonary process. MACRO: None Signed by: Jose Rogers 11/21/2024 10:33 AM Dictation workstation: [id number] MMODALInterpreted By: Jose Rogers, STUDY: XR CHEST 1 VIEW; 11/21/2024 10:25 am INDICATION: Signs/Symptoms:chest tube removal. COMPARISON: Chest radiograph 11/21/2024 ACCESSION NUMBER(S): [id number] ORDERING CLINICIAN: PARTHA ROCHA FINDINGS: AP radiograph of the chest was provided. A presumed PLATER HELPER shunt is seen overlying the right base of the neck, right chest wall, and right hemiabdomen with tip not in elfvh-bf-ijcq. Interval removal of left chest tube. CARDIOMEDIASTINAL SILHOUETTE: The cardiomediastinal silhouette is persistently enlarged but stable in size and configuration. LUNGS: There is no consolidation, pleural effusion, or pneumothorax. ABDOMEN: No remarkable upper abdominal findings. BONES: No acute osseous changes. Jose Shay MD - 11/21/2024 Interpreted By: Jose Rogers, STUDY: XR CHEST 1 VIEW; 11/21/2024 10:25 am INDICATION: Signs/Symptoms:chest tube removal. COMPARISON: Chest radiograph 11/21/2024 ACCESSION NUMBER(S): [id number] ORDERING CLINICIAN: PARTHA ROCHA FINDINGS: AP radiograph of the chest was provided. A presumed PLATER HELPER shunt is seen overlying the right base of the neck, right chest wall, and right hemiabdomen with tip not in yggzc-nn-aidy. Interval removal of left chest tube. CARDIOMEDIASTINAL [...] Jose Rogers 11/21/2024 10:33 AM Dictation workstation: [id number] [facility] Work Phone: Radiology Study observation (narrative)[facility] Work Phone: No interval change MACRO: None Signed by: Eloy José 11/21/2024 8:35 AM Dictation workstation: [id number] MMODALInterpreted By: Eloy José, STUDY: XR CHEST 1 VIEW; 11/21/2024 5:45 am INDICATION: Signs/Symptoms:s/p posterior mediastinal mass resection. COMPARISON: Portable chest, 20 November 2024 ACCESSION NUMBER(S): [id number] ORDERING CLINICIAN: ARIELLE SHAH TECHNIQUE: Single frontal view of the chest; Portable technique FINDINGS: Left chest tube unchanged in position Right sided central line is unchanged and well positioned No demonstrable pneumothorax or acute infiltrate on either side No large effusion or edema MMODALEloy José MD - 11/21/2024 Interpreted By: Eloy José, STUDY: XR CHEST 1 VIEW; 11/21/2024 5:45 am INDICATION: Signs/Symptoms:s/p posterior mediastinal mass resection. COMPARISON: Portable chest, 20 November 2024 ACCESSION NUMBER(S): [id number] ORDERING CLINICIAN: ARIELLE SHAH TECHNIQUE: Single frontal view of the chest; Portable technique FINDINGS: Left chest tube unchanged in position Right sided central line is unchanged and well positioned No demonstrable pneumothorax or acute infiltrate on either side No large effusion or edema IMPRESSION: No interval change MACRO: None Signed by: Eloy José 11/21/2024 8:35 AM Dictation workstation: [id number] [facility] Work Phone: Radiology Study observation (narrative)[facility] Work Phone: XR Chest Single viewOrdered By: Jose Rogers on 68-59-1529LhzfhfofdmUniversity Hospitals Samaritan Medical Center Work Phone: XR Chest Single viewOrdered By: Eloy José on 01-47-0823QxidkcccbwMartins Ferry Hospital Work Phone: Blood type and Indirect antibody screen panel (Bld)on 21-70-0891JFO group Nom (Bld)AUnUniversity Hospitals Samaritan Medical CenterBlmercy hospital group antibody screen QlNegativeMartins Ferry HospitalD Ag Ql (Bld)Positive [facility] HospitalUnUniversity Hospitals Samaritan Medical CenterABO group Nom (Bld)ANormMercy Memorial HospitalComment on above:Performed By: #### 31879-0 #### HARLEEN QUINTANA ([id number]) [facility] ([employer]) [address] [place] [address] USBlood group antibody screen QlNegativeRegency Hospital Cleveland EastComment on above:Performed By: #### 53004-7 #### FABIOLAIBRACQUEL MAGANA [facility] ([id number]) [facility] ([employer]) [address] [place] [address] USD Ag Ql (Bld)PositiveRegency Hospital Cleveland EastComment on above:Performed By: #### 08646-4 #### HARLEEN [facility] ([id number]) [facility] ([employer]) [address] [place] [id number] USECG 12 leadOrdered By: Jordon Rabago on 63-19-2164Npezao Efkz56OLAQqtsgfuyarBluffton Hospital Work Phone: p Mojm96jgwekmvOyslcgrfrnSouthwest General Health Center Work Phone: [phone] Ztzbdh409 [facility] Work Phone: [phone] Lznba489 [facility] Work Phone: PR Watrkquk163 [facility] Work Phone: Q Rxdbi308 [facility] Work Phone: QRS Ohwew38fmuitFoxspgxqifIndiana University [facility] Work Phone: QRS Xsycarmq20 [facility] Work Phone: QT Gvnecrbe961 [facility] Work Phone: [phone] Calculation(Bazett)464 [facility] Work Phone: [phone] Lznvhtgptu610 [facility] Work Phone: [phone] Peosta-4degWVUMedicine Harrison Community Hospital Work Phone: [phone] Czms20ddkfuvoHezhdzvcvqRiverview Health Institute Work Phone: [phone] Mtzvww667 [facility] Work Phone: [phone] Nhrf89DBKBvogvsvcixBluffton Hospital Work Phone: [phone] Work Phone: [phone] 12 leadon 75-60-0356Yjcsik sinus rhythm Low voltage QRS Borderline ECG When compared with ECG of 07-AUG-2024 06:33, QT has lengthened Confirmed by Jordon Rabago ([id number]) on 11/20/2024 10:52:14 PMJordon Parrish MD - 11/20/2024 Normal sinus rhythm Low voltage QRS Borderline ECG When compared with ECG of 07-AUG-2024 06:33, QT has lengthened Confirmed by Jordon Rabago ([id number]) on 11/20/2024 10:52:14 PM [facility] Work Phone: ecg 12-LEADon 64-51-8764SBJ 12-LEADVentricular Rate 85 Atrial Rate 85 P-R Interval 166 QRS Duration 90 Q-T Interval 390 QTC Calculation(Bazett) 464 P Peosta 52 R Peosta -4 T Peosta 29 QRS Count 14 Q Onset 221 P Onset 138 P Offset 188 T Offset 416 QTC Fredericia 438 Diagnosis Normal sinus rhythm Low voltage QRS Borderline ECG When compared with ECG of 07-AUG-2024 06:33, QT has lengthened Confirmed by Jordon Rabago ([id number]) on 11/20/2024 10:52:14 PMNNew Ulm Medical Centerurgical pathology studyon 88-17-9975Nwekdolv pathology study Pathology report.total SEE COMMENT Surgical Pathology Case: [id number] Authorizing Provider: Harsha Ojeda MD Collected: 11/20/2024 0849 Ordering Location: [facility] Received: 11/20/2024 0926 OR Pathologist: [...] and CD34 highlights background fibroblasts. P16 highlights asubset of background cells. There are numerous scattered mature ganglion cells. Ki-67 proliferationindex is low. There is degenerative atypia present [...] to one external surface is smooth and purple-connell fibromembranous tissue, inked blue. The opposing surface is lobulated and yellow with cautery artifact, exposed capsular tissue, and is inked black. A 2.1 x 1.5 cm sharp and superficial defect is present on the lobulated surface and is reapproximated to be intact. On sectioning, there is a 3.3 x 2.3 x 2.0 cmencapsulated, glistening, simeon-salazar, and gelatinous nodule. The nodule is less than 0.1 cm from the u ninvolved blue and black inked external surfaces. Areas of hemorrhage, necrosis, or fleshy foci arenot identified. Photographs are taken. The specimen is entirely submitted in 8 cassettes. [facility] Summary of Cassettes: Specimen Label Site A 1-2 Opposing ends, perpendicular 3-8 Sequential full-thickness sections Gross dissection performed at: [place] [address] LAB AP ASR DISCLAIMER One or more of the reagents used to perform assays on this specimen MAY have contained components considered to be analyte specific reagents (ASR's). ASR's have not been cleared or approved by the U.S. Food and Drug Administration. These assays were developed and their performance characteristics determined by the Department of Pathology at [facility]. The FDA does not require this test to go through premarket FDA review. This test is used for clinical purposes. It should not be regarded as investigational or for research. This laboratory is certified under the Clinical Laboratory Improvement Amendments (CLIA) as qualified to perform high complexity clinical laboratory testing. The assays were performed with appropriate positive and negative controls which stained appropriately.Reg[facility] Hospital Cleveland EastComment on above:Order Comment: Pre-op diagnosis: Melanoma of back (Multi) [C43.59]XR CHEST 1 VIEWon 49-22-4386TZ CHEST 1 VIEW Interpreted By: Raquel Sweeney, STUDY: Chest, single AP view. INDICATION: Signs/Symptoms:s/p mediastinal mass resection. COMPARISON: None. ACCESSION NUMBER(S): [id number] ORDERING CLINICIAN: ARIELLE SHAH FINDINGS: Chest tube [...] Raquel Sweeney 11/20/2024 11:04 AM Dictation workstation: [id number] Hospital Cleveland EastComment on above:Order Comment: On arrival to PACU/SICUXR Chest Single viewon . As above MACRO: None. Signed by: Raquel Sweeney 11/20/2024 11:04 AM Dictation workstation: [id number] By: Raquel Sweeney, STUDY: Chest, single AP view. INDICATION: Signs/Symptoms:s/p mediastinal mass resection. COMPARISON: None. ACCESSION NUMBER(S): [id number] ORDERING CLINICIAN: ARIELLE SHAH FINDINGS: Chest tube visualized projecting over the left upper thorax. The cardiac silhouette size is within normal limits. There is no focal consolidation, edema or pneumothorax. There is mild blunting of the left costophrenic angle likely representing postoperative effusion and atelectasis. No acute osseous abnormality. Surgical clips in the right axilla. MMODALKoRaquel jorgensen MD - 11/20/2024 Interpreted By: Raquel Sweeney, STUDY: Chest, single AP view. INDICATION: Signs/Symptoms:s/p mediastinal mass resection. COMPARISON: None. ACCESSION NUMBER(S): [id number] ORDERING CLINICIAN: ARIELLE SHAH FINDINGS: Chest tube [...] Raquel Sweeney 11/20/2024 11:04 AM Dictation workstation: [id number] [facility] Work Phone: Radiology Study observation (narrative)[facility] Work Phone: XR Chest Single viewOrdered By: Raquel Sweeney on 10-91-2810YvomnpnogwMartins Ferry Hospital Work Phone: Blood type and Indirect antibody screen panel (Bld)on 90-62-6438AVA group Nom (Bld)ANoUniversity Hospitals Portage Medical CenterComment on above:Performed By: #### 28418-3 #### HARLEEN MAGANA [place] ([id number]) [facility] ([employer]) [address] [place] [address] USBlood group antibody screen QlNegativeNoUniversity Hospitals Portage Medical CenterComment on above:Performed By: #### 53619-8 #### HARLEEN MAGANA [place] ([id number]) [facility] ([facility]) [address] [place] [address] USD Ag Ql (Bld)PositiveFisher-Titus Medical CenterComment on above:Result Comment: 2nd ABO test required. Order and Collect VERABPerformed By: #### 82922-2 #### HARLEEN MAGANA [place] ([id number]) [facility] ([facility]) [address] [place] [address] USCBC panel Auto (Bld)on 93-07-4979Rddegllpycr distribution width (RBC) [Ratio]14.3 %Fjvazd07.5-14.5UnUC HealthComment on above:Performed By: #### 24534-7 #### HARLEEN MAGANA [place] ([id number]) [facility] ([facility]) [address] [place] [address] 70810Blazmtozqu (Bld) [Volume fraction]42.8 %Sfwkcd74.0-46.0 [facility] County Medical CenterComment on above:Performed By: #### 36076-0 #### HARLEEN MAGANA [facility] ([id number]) [facility] ([facility]) [address] [place] [address] 55753Rkigeltngs (Bld) [Mass/Vol]14.1 g/hNRxnshd35.0-16.0UnUC HealthComment on above:Performed By: #### 34485-8 #### HARLEEN QUINTANA ([id number]) [facility] ([facility]) [address] [place] [address] 47692KZO (RBC) [Entitic mass]31.3 ogXexsce71.0-34.0[facility] Medical CenterComment on above:Performed By: #### 17629-6 #### HARLEEN QUINTANA ([id number]) [facility] ([facility]) [address] [place] [address] 56859DXZF (RBC) [Mass/Vol]32.9 g/lHPntljt99.0-36.0UnUC HealthComment on above:Performed By: #### 37743-0 #### HARLEEN QUINTANA ([id number]) [facility] ([facility]) [address] [place] [address] 14125ICM (RBC) [Entitic vol]95 nMBucstl11-659MwxmozxlmvUC HealthComment on above:Performed By: #### 18175-4 #### HARLEEN QUINTANA ([id number]) [facility] ([facility]) [address] [place] [address] 54853Kgtyfhyfz RBC/100 WBC (Bld) [Ratio]0.0 /100 WBCsNormal0.0-0.0 [facility] CenterComment on above:Performed By: #### 95429-5 #### HARLEEN QUINTANA ([id number]) [facility] ([facility]) [address] [place] [address] 80099Vwmtqnway (Bld) [#/Vol]246 x10*3/zCOpvsbs018-364UrmvotdwbaUC HealthComment on above:Performed By: #### 47862-1 #### HARLEEN QUINTANA (18356) [facility] ([facility]) [address] [place] [address] 01377IPN (Bld) [#/Vol]4.51 x10*6/uLNormal4.00-5.20UnRio Grande Regional Hospitalveland Medical CenterComment on above:Performed By: #### 62783-1 #### HARLEEN QUINTANA ([id number]) [facility] ([facility]) [address] [place] [address] 12203COT (Bld) [#/Vol]7.2 x10*3/uLNormal4.4-11.3[facility] Medical CenterComment on above:Performed By: #### 82214-8 #### HARLEEN QUINTANA (04991) [facility] ([facility]) [address] [place] [address] 95087Kmeyzgsbrza tissue factor inducedon 21-12-1954IH Coag (PPP) [Time]10.7 sNormal9.8-12.4[facility] Medical CenterComment on above:Performed By: #### 5902-2 #### HARLEEN QUINTANA ([id number]) [facility] ([facility]) [address] [place] [address] 61822Qorzgiwshobdo metabolic 2000 panelon 30-05-0654Clvfiez BCP dye [Mass/Vol]4.5 g/dLNormal3.4-5.0[facility] Comment on above:Performed By: #### 16924-6 #### HARLEEN QUINTANA ([id number]) [facility] ([facility]) [address] [place] [address] 44238XQS [Catalytic activity/Vol]49 U/PVmgfjw34-352EnqsbzfjgyUC HealthComment on above:Performed By: #### 15735-1 #### HARLEEN QUINTANA (08504) [facility] ([facility]) [address] [place] [address] 16465VGF With P-5'-P [Catalytic activity/Vol]22 U/LNormal7-45 [facility] Medical CenterComment on above:Result Comment: Patients treated with Sulfasalazine may generate falsely decreased results for ALT.Performed By: #### 91966-0 #### HARLEEN QUINTANA ([id number]) [facility] ([facility]) [address] [place] [address] 76008Xmwpc gap [Moles/Vol]11 mmol/DTrpnpa42-52IuttkxkvvrAshtabula County Medical CenterComment on above:Performed By: #### 27447-9 #### HARLEEN QUINTANA (97421) [facility] ([facility]) [address] [place] [address] 26673FCK With P-5'-P [Catalytic activity/Vol]19 U/LNormal9-39 [facility] Medical CenterComment on above:Performed By: #### 00067-5 #### HARLEEN QUINTANA ([id number]) [facility] ([facility]) [address] [place] [address] 21485Jripzbjdz [Mass/Vol]0.4 mg/dLNormal0.0-1.2[facility] Medical CenterComment on above:Performed By: #### 01504-6 #### HARLEEN QUINTANA ([id number]) [facility] ([facility]) [address] [place] [address] 95049Zrutvba [Mass/Vol]8.7 mg/dLNormal8.6-10.3[facility] Medical CenterComment on above:Performed By: #### 67236-4 #### HARLEEN QUINTANA (10760) [facility] ([facility]) [address] [place] [address] 44165Xnvddoyc [Moles/Vol]112 mmol/EHvlr51-543IruwksrkdfUC HealthComment on above:Performed By: #### 75241-2 #### FABIOLAIBRACQUEL QUINTANA (00341) [facility] ([facility]) [address] [place] [address] 60328DV3 [Moles/Vol]25 mmol/RPpdadt71-44JrpqizjhjfUC HealthComment on above:Performed By: #### 58673-8 #### FABIOLAIBRACQUEL QUINTANA (29450) [facility] ([facility]) [address] [place] [address] 88052Zgfkcmfnpr [Mass/Vol]0.79 mg/dLNormal0.50-1.05[facility] Medical CenterComment on above:Performed By: #### 92271-3 #### HARLEEN QUINTANA ([id number]) [facility] ([facility]) [address] [place] [address] 49273WNB/1.73 sq M.predicted MDRD (S/P/Bld) [Vol rate/Area] mL/min/{1.73_m2}Normal>60UnUC HealthComment on above:Result Comment: Calculations of estimated GFR are performed using the 2020 CKD-EPI Study Refit equation without the race variable for the IDMS-Traceable creatinine methods. https://jasn.asnjournals.org/content/early//ASN.5330620630Lfgnzaqke By: #### 48320-6 #### HARLEEN QUINTANA ([id number]) [facility] ([facility]) [address] [place] [address] 53973Lnjhuyg [Mass/Vol]90 mg/jTUoorml99-27ObpnzxvokzAshtabula County Medical CenterComment on above:Performed By: #### 24257-7 #### HARLEEN QUINTANA (78353) [facility] ([facility]) [address] [place] [address] 06021Jckxaptib [Moles/Vol]4.3 mmol/LNormal3.5-5.3[facility] Medical CenterComment on above:Performed By: #### 23166-0 #### HARLEEN QUINTANA ([id number]) [facility] ([facility]) [address] [place] [address] 83295Lymofki [Mass/Vol]6.6 g/dLNormal6.4-8.2UnUC HealthComment on above:Performed By: #### 00378-4 #### HARLEEN QUINTANA (23625) [facility] ([facility]) [address] [place] [address] 06733Foftxt [Moles/Vol]144 mmol/XXafhyh107-188SotsdwpdamUC HealthComment on above:Performed By: #### 25691-7 #### HARLEEN QUINTANA (55933) [facility] ([facility]) [address] [place] [address] 06305Sdgy nitrogen [Mass/Vol]15 mg/dLNormal6-23UnUC HealthComment on above:Performed By: #### 22229-3 #### HARLEEN QUINTANA (50159) [facility] ([facility]) [address] [place] [address] 41307CK Coag (PPP) [Time]on 56-00-6236UIS Coag (PPP) [Relative time] 1.1Whalym0.9-1.1UnUC HealthComment on above: Performed By: #### 5902-2 #### HARLEEN QUINTANA (78644) [facility] ([facility]) [address] [place] [address] 33690JEA panel Auto (Bld)on 38-51-5992Pkjuekomaso distribution width (RBC) [Ratio]13.6 %Grwvxf39.5-14.5Un[facility] Health Comment on above:Performed By: #### 05730-8 #### ROCKY Greer (13797) [facility] ([facility]) [address] [place] [address] 69673Nglusiomqa (Bld) [Volume fraction]44.5 %Wdxlcn55.0-46.0 [facility] Medical CenterComment on above:Performed By: #### 15403-0 #### ROCKY Greer (48987) [facility] ([facility]) [address] [place], [place] [address]Buhhfawsio (Bld) [Mass/Vol]14.1 g/pSAlktli61.0-16.0UnUC HealthComment on above:Performed By: #### 22685-9 #### ROCKY Greer (51116) [facility] ([facility]) [address] [place], [place] [address]LHS (RBC) [Entitic mass]30.7 peKzsewd56.0-34.0UnUC HealthComment on above:Performed By: #### 25727-2 #### ROCKY Greer (58713) [facility] ([facility]) [address] [place], [place] [address]JKHP (RBC) [Mass/Vol]31.7 g/dLLow32.0-36.0[facility] Medical CenterComment on above:Performed By: #### 20127-9 #### ROCKY Greer (50435) [facility] ([facility]) [address] [place], [place] [address]ZUO (RBC) [Entitic vol]97 lGLpfksx19-959HuvmgygbgeUC HealthComment on above:Performed By: #### 50297-9 #### ROCKY Greer (28874) [facility] ([facility]) [address] [place], [place] [address]Lzlgyphgw RBC/100 WBC (Bld) [Ratio]0.0 /100 WBCsNormal0.0-0.0 [facility] Medical CenterComment on above:Performed By: #### 03422-4 #### ROCKY Greer (33878) [facility] ([facility]) [address] [place], [place] [address]Lhzkizmgd (Bld) [#/Vol]222 x10*3/uRNzepqu961-378QlxuglhptuUC HealthComment on above:Performed By: #### 81118-4 #### ROCKY Greer (21552) [facility] ([facility]) [address] [place], [place] [address]OPA (Bld) [#/Vol]4.59 x10*6/uLNormal4.00-5.20UnUC HealthComment on above:Performed By: #### 27448-2 #### ROCKY Greer (11160) [facility] ([facility]) [address] [place], [place] [address]HKQ (Bld) [#/Vol]7.5 x10*3/uLNormal4.4-11.3[facility] Medical CenterComment on above:Performed By: #### 69710-9 #### ROCKY Greer (05006) [facility] ([facility]) [address] [place] [address]27[address]YK GUIDED PERCUTANEOUS BIOPSY MEDIASTINUMon 51-66-6935CB GUIDED PERCUTANEOUS BIOPSY MEDIASTINUMInterpreted By: Cosme Stover and Beyersdorf Conner STUDY: CT GUIDED PERCUTANEOUS BIOPSY MEDIASTINUM; 10/09/2024 11:48 am INDICATION: Signs/Symptoms:L paravertebral mass, known melanoma. COMPARISON: PET-CT 09/26/2024 ACCESSION NUMBER(S): [id number] ORDERING CLINICIAN: ALANNA PENNINGTON TECHNIQUE: INTERVENTIONALIST(S): MD [...] 100 mcg and Versed 2 mg from 10 50-1135. MEDICATION/CONTRAST: No additional TIME OUT: A [...] as stated. This study was interpreted at [facility], [place], [place]. Signed by: Cosme Stover 10/10/2024 12:58 PM Dictation workstation: [id number] Valley Surgical HospitalCoagulation tissue factor inducedon 33-05-9749AT Coag (PPP) [Time]10.7 s Normal9.8-12.4[facility] Medical CenterComment on above: Performed By: #### 5902-2 #### ROCKY Greer (46041) [facility] ([facility]) [address] [place] [address]60[address]UR Coag (PPP) [Time]on 77-90-8732IJP Coag (PPP) [Relative time]1.3Qcqizc6.9-1.1UnUC HealthComment on above:Performed By: #### 5902-2 #### ROCKY Greer ([id number]) [facility] ([facility]) [address] [place] [address]97[address]Ozfqqgge pathology studyon 03-95-6550Dputttel pathology study Pathology report.total SEE COMMENT Surgical Pathology Case: [id number] Authorizing Provider: Alanna Pennington MD Collected: 10/09/2024 1150 Ordering Location: [facility] Received: 10/10/2024 09 Center Pathologist: Jacqeuline Winchester MD Specimen: LYMPH NODE BIOPSY Path [...] is submitted in toto in two cassettes. [facility] AP ASR DISCLAIMER One or more of the reagents used to perform assays on this specimen MAY have contained components considered to be analyte specific reagents (ASR's). ASR's have not been cleared or approved by the U.S. Food and Drug Administration. These assays were developed and their performance characteristics determined by the Department of Pathology at [facility]. The FDA does not require this test to go through premarket FDA review. This test is used for clinical purposes. It should not be regarded as investigational or for research. This laboratory is certified under the Clinical Laboratory Improvement Amendments (CLIA) as qualified to perform high complexity clinical laboratory testing. The assays were performed with appropriate positive and negative controls which stained appropriately.[facility] Medical CenterMR BRAIN W AND WO IV CONTRASTon 74-64-9923CV BRAIN W AND WO IV CONTRASTInterpreted By: Teri Man, STUDY: MR BRAIN W AND WO IV CONTRAST; 09/26/2024 1:19 pm INDICATION: Signs/Symptoms:melanoma. ,C43.59 Malignant melanoma of other part of trunk COMPARISON: None. ACCESSION NUMBER(S): [id number] ORDERING CLINICIAN: ALANNA PENNINGTON TECHNIQUE: Axial T2, [...] Teri Man 09/26/2024 3:25 PM Dictation workstation: [id number]-Titus Medical CenterMR Brain WO and W contrast Dg 40-89-7802Oi demonstrated intracranial metastatic disease. No acute intracranial abnormality. Right ventriculostomy tube. Decreased ventricular size. MACRO: None Signed by: Teri Man 09/26/2024 3:25 PM Dictation workstation: [id number] MMODALInterpreted By: Teri Man, STUDY: MR BRAIN W AND WO IV CONTRAST; 09/26/2024 1:19 pm INDICATION: Signs/Symptoms:melanoma. ,C43.59 Malignant melanoma of other part of trunk COMPARISON: None. ACCESSION NUMBER(S): [id number] ORDERING CLINICIAN: ALANNA PENNINGTON TECHNIQUE: Axial T2, [...] sinuses and mastoid air cells are unremarkable. MMODALTeri Man MD - 09/26/2024 Interpreted By: Teri Man, STUDY: MR BRAIN W AND WO IV CONTRAST; 09/26/2024 1:19 pm INDICATION: Signs/Symptoms:melanoma. ,C43.59 Malignant melanoma of other part of trunk COMPARISON: None. ACCESSION NUMBER(S): [id number] ORDERING CLINICIAN: ALANNA PENNINGTON TECHNIQUE: Axial T2, [...] Teri Man 09/26/2024 3:25 PM Dictation workstation: [id number] [facility] Work Phone: mr Brain WO and W contrast IVOrdered By: Teri Man on 46-50-0544CdneilvzpjMartins Ferry Hospital Work Phone: nm PET CT WHOLE BODYon 41-92-7600LR PET CT WHOLE BODY Interpreted By: David Shah and Kaur Arashdeep STUDY: NM PET CT WHOLE BODY; 09/26/2024 11:08 am INDICATION: Signs/Symptoms:staging melanoma. 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 COMPARISON: None. ACCESSION NUMBER(S): [id number] ORDERING CLINICIAN: ALANNA PENNINGTON TECHNIQUE: DIVISION OF [...] (PI) Subsequent Treatment Strategy (PS) CALIBRATION: Dose Qqbgokwjz-hv-Tksg Interval (mins): 87 min Mediastinal bloodpool SUV [...] Vigil MD. This study was interpreted at [place], [place]. Signed by: David Shah 09/26/2024 11:37 AM Dictation workstation: [id number]-Titus Medical CenterNM Whole body Bone Viewson . Status post wide local excision with mild [...] Vigil MD. This study was interpreted at [place], [place]. Signed by: David Shah 09/26/2024 11:37 AM Dictation workstation: [id number] MMODALInterpreted By: David Shah and Kaur Arashdeep STUDY: NM PET CT WHOLE BODY; 09/26/2024 11:08 am INDICATION: Signs/Symptoms:staging melanoma. 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 COMPARISON: None. ACCESSION NUMBER(S): [id number] ORDERING CLINICIAN: ALANNA PENNINGTON TECHNIQUE: DIVISION OF [...] (PI) Subsequent Treatment Strategy (PS) CALIBRATION: Dose Dvgjndxyo-pm-Wnzz Interval (mins): 87 min Mediastinal bloodpool SUV [...] posterolateral aspect of the right lower back. MMODALDavid Shah MD - 09/26/2024 Interpreted By: David Shah and Kaur Arashdeep STUDY: NM PET CT WHOLE BODY; 09/26/2024 11:08 am INDICATION: Signs/Symptoms:staging melanoma. 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 COMPARISON: None. ACCESSION NUMBER(S): [id number] ORDERING CLINICIAN: ALANNA PENNINGTON TECHNIQUE: DIVISION OF [...] (PI) Subsequent Treatment Strategy (PS) CALIBRATION: Dose Bmtwaiuif-on-Klgj Interval (mins): 87 min Mediastinal bloodpool SUV [...] Vigil MD. This study was interpreted at [facility], [place], [place]. Signed by: David Shah 09/26/2024 11:37 AM Dictation workstation: [id number] [facility] Work Phone: nm Whole body Bone ViewsOrdered By: David Shah on 34-92-1733WzrivizrxoUniversity Hospitals Samaritan Medical Center Work Phone: no Panel Informationon 07-10-0479Geslzwqcb Study observation (narrative)[facility] Work Phone: [facility] LAB- DERMATOPATHOLOGYon 30-59-6263CGADFZGB LAB- DERMATOPATHOLOGYPathology report.total SEE COMMENT Dermatopathology Case: [id number] Authorizing Provider: Yanet Pacheco MD Collected: 08/07/2024 0956 Ordering Location: [facility] Received: 08/07/2024 1429 OR Pathologist: [...] and HMB45 (controls appropriate) were examined on blocksB1 through B3. In blocks B1 and focally [...] Melanoma of back (Multi) C43.59 Specimen ID: [id number], [id number] Specimen Source: SKIN INCISIONAL BIOPSY Site/Location: WIDE LOCAL INCISION MIDBACK Collection Comments: SHORT STITCH SUPERIOR/ LONG STITCH LEFT Specimen ID: [id number], [id number] Specimen Source: LYMPH NODE EXCISION Site/Location: RIGHT [...] determined by the Department of Pathology at [facility]. The FDA does not require this test [...] even-numbered blocks being o (more content not included)...Normal [facility] HospitalComment on above:Order Comment: Pre-op diagnosis: Melanoma of back (Multi) [C43.59]ECG 12-LEADon 09-88-6476AGV 12-LEADVentricular Rate 66 Atrial Rate 66 P-R Interval 166 QRS Duration 82 Q-T Interval 380 QTC Calculation(Bazett) 398 P Peosta 34 R Peosta 44 T Peosta 44 QRS Count 11 Q Onset 224 P Onset 141 P Offset 195 T Offset 414 QTC Fredericia 392 Diagnosis Normal sinus rhythm Normal ECG No previous ECGs available Confirmed by Bobby Aldana ([id number]) on 08/15/2024 8:23:58 AMNRidgeview Sibley Medical CenterNM LYMPHOSCINTIGRAMon 85-77-2867TC LYMPHOSCINTIGRAMInterpreted By: Lane Guadalupe, STUDY: NM LYMPHOSCINTIGRAM; 08/07/2024 8:28 am INDICATION: Signs/Symptoms:SLNB. COMPARISON: None. ACCESSION NUMBER(S): [id number] ORDERING CLINICIAN: YANET PACHECO TECHNIQUE: DIVISION OF [...] This study was analyzed and interpreted at [place], [place]. Signed by: Lane Guadalupe 08/07/2024 8:46 AM Dictation workstation: [id number] Hospital Cleveland EastNM Lymphatic vessels Views W radionuclide intra lymphaticon 08-07-2024 Successful sentinel lymph node localization in the right axilla. This study was analyzed and interpreted at [place], [place]. Signed by: Lane Guadalupe 08/07/2024 8:46 AM Dictation workstation: [id number] MMODALInterpreted By: Lane Guadalupe, STUDY: NM LYMPHOSCINTIGRAM; 08/07/2024 8:28 am INDICATION: Signs/Symptoms:SLNB. COMPARISON: None. ACCESSION NUMBER(S): [id number] ORDERING CLINICIAN: YANET PACHECO TECHNIQUE: DIVISION OF [...] radio activity seen within inguinal lymph nodes. Lane Penn MD - 08/07/2024 Interpreted By: Lane Guadalupe, STUDY: NM LYMPHOSCINTIGRAM; 08/07/2024 8:28 am INDICATION: Signs/Symptoms:SLNB. COMPARISON: None. ACCESSION NUMBER(S): [id number] ORDERING CLINICIAN: YANET PACHECO TECHNIQUE: DIVISION OF [...] This study was analyzed and interpreted at [place], [place]. Signed by: Lane Guadalupe 08/07/2024 8:46 AM Dictation workstation: [id number] [facility] Work Phone: Radiology Study observation (narrative)[facility] Work Phone: NM Lymphatic vessels Views W radionuclide intra lymphaticOrdered By: Lane Guadalupe on 80-46-9006RwpysgqadcUniversity Hospitals Samaritan Medical Center Work Phone: Surgical pathology studyon 91-90-3919Dgrncwvk pathology studyPathology report.total SEE COMMENT Dermatopathology Report Case: [id number] Authorizing Provider: Yanet Pacheco MD Collected: 07/14/2024 1246 Ordering Location: [facility] Received: 07/14/2024 1246 [facility] Pathologist: Ron Aragon MD Specimen: OUTSIDE BLOCK(S)/SLIDE(S), 5 SLIDES, [facility] , #[id number] (BX: 06/28/2024) Path report.final diagnosis SEE COMMENT 5 SLIDES, [facility] , #[id number] (BX: 06/28/2024) SKIN, RIGHT BACK, BIOPSY: MALIGNANT [...] A. OUTSIDE BLOCK(S)/SLIDE(S). [facility] five slides labeled #[id number] (BX: 06/28/2204) along with the corresponding pathology report.[facility] AmbulatoryComment on above:Order Comment: Materials Received: 5 SLIDES, [facility] , #[id number] (BX: 06/28/2024) IGP,APTIMA HPV,AGE GDLNon 87-42-1529UBV GDLN ACOG TESTINGNote.[facility] Comment on above:TESTS RESULT FLAG UNITS REF RANGE LAB Clinician Provided Cytology Information Source.............Vagina No. of containers..01 ThinPrep Vial Age Algo ACOG Anabel... 3065 FLAG LEGEND: L-Low Normal,H-High Normal,LL-Alert Low,HH-Alert High <-Panic Low,>-Panic High,A-Abnormal,AA-Critical Abnormal Performed at: 01 =[address] [place] [address] Sumaya Lorenzo MD, HPV APTIMANegativeNegativeNOMS HealthcareComment on above:This nucleic acid amplification test detects fourteen high- risk HPV types (16,18,31,33,35,39,45,51,52,56,58,59,66,68) without differentiation. Performed at: =[facility] [id number] Syrup Mixer: Sumaya Lorenzo MD, Phone: [phone] Performed at: [facility] [address], [place] [id number] Syrup Mixer: Sumaya Lorenzo MD, Phone: [phone] IGP, APTIMA HPV, RFX 16/18,45Note.[facility] HealthcareComment on above:TESTS RESULT FLAG UNITS REF RANGE LAB DIAGNOSIS: 02 NEGATIVE FOR INTRAEPITHELIAL LESION OR MALIGNANCY. THIS SPECIMEN WAS RESCREENED PART OF OUR [employer] BOOKKEEPER PROGRAM. Specimen adequacy: 02 Satisfactory for evaluation. Performed by: Dee Shi, Diesel Mechanic Apprentice (ASC) QC reviewed by: 02 Moni rAaiza, Diesel Mechanic Apprentice (ASC) . 02 Note: Note 02 The Pap [...] <-Panic Low,>-Panic High,A-Abnormal,AA-Critical Abnormal Performed at: [address] [facility] [address] [place] [address] Sumaya Lorenzo MD, SPATULA-[facility] TOMOSYNTHESIS SCREENING BIon 75-18-6343DbjMc[place]ae [place] [address] Mammography Report Signed Patient: SHAWNA GRIGSBY MR#: [id number] : 1980 Acct:[id number] Age/Sex: 43 / F ADM Date: 05/31/24 Loc: MAMMO Attending Dr: Vonnie Nicholas Ordering Physician: Vonnie Nicholas Results: Date of Service: 05/31/24 Follow Up: Procedure(s): MM tomosynthesis screening BI Accession Number(s): [id number] cc: Vonnie Nicholas; MONROE WHITAKER D.O. Patient Name: SHAWNA GRIGSBY MR#: [id number] : 1980 Exam Date: 05/31/2024 Ordering Doctor: SUZANNA Nicholas . RADIOLOGY REPORT PROCEDURE: MM TOMOSYNTHESIS SCREENING BI COMPARISON: MG MAMM SCREEN 3D MATTEO CAD, 05/06/2022. MM TOMOSYNTHESIS SCREENING BI, 05/18/2023. INDICATIONS: screening for malignant neoplasm of breast Calculator Name NCI Breast Cancer Risk Assessment Tool 5 Year Breast Cancer Risk 1.40% Lifetime Breast Cancer Risk 12.70% Personal Breast Cancer No Personal Ovarian Cancer No Treatments None Family Cancers Grandmother-maternal with breast cancer at age 60. LOCATION: [facility] BREAST COMPOSITION: The breasts are heterogeneously dense,which may obscure small masses. FINDINGS: DIAGNOSTIC CATEGORY 2--BENIGN FINDING. NO CHANGE FROM COMPARISON. Scattered benign-appearing calcifications are present. Scattered benign-appearing lymph nodes are present. RIGHT BREAST: No significant suspicious finding. LEFT BREAST: No significant suspicious finding. RECOMMENDATIONS: ROUTINE MAMMOGRAM AND CLINICAL EVALUATION IN 12 MONTHS. PLEASE NOTE: A NORMAL MAMMOGRAM DOES NOT EXCLUDE THE POSSIBILITY OF BREAST CANCER. A CLINICALLY SUSPICIOUS PALPABLE LUMP SHOULD BE BIOPSIED. Dictated by: Alex Shi MD on 05/31/2024 at 15:11 Approved by: Alex Shi MD on 05/31/2024 at 15:12 Dictated By: Alex Shi M.D. Signed By: 05/31/24 1514 DD/ 1513 TD/TT: Party Planner:TBHRadiology, Radiologist, - 05/31/2024 [facility] [place] [id number] Mammography Report Signed Patient: SHAWNA GRIGSBY MR#: [id number] : 1980 Acct:[id number] Age/Sex: 43 / F ADM Date: 05/31/24 Loc: MAMMO Attending Dr: Vonnie Nicholas Ordering Physician: Vonnie Nicholas Results: Date of Service: 05/31/24 Follow Up: Procedure(s): MM tomosynthesis screening BI Accession Number(s): [id number] cc: Vonnie Nicholas; MONROE WHITAKER D.O. Patient Name: SHAWNA GRIGSBY MR#: [id number] : 1980 Exam Date: 05/31/2024 Ordering Doctor: SUZANNA Nicholas . RADIOLOGY REPORT PROCEDURE: MM TOMOSYNTHESIS SCREENING BI COMPARISON: MG MAMM SCREEN 3D [place] CAD, 05/06/2022. MM TOMOSYNTHESIS SCREENING BI, 05/18/2023. INDICATIONS: screening for malignant neoplasm of breast Calculator Name NCI Breast Cancer Risk Assessment Tool 5 Year Breast Cancer Risk 1.40% Lifetime Breast Cancer Risk 12.70% Personal Breast Cancer No Personal Ovarian Cancer No Treatments None Family Cancers Grandmother-maternal with breast cancer at age 60. LOCATION: [facility] BREAST COMPOSITION: The breasts are heterogeneously dense,which may obscure small masses. FINDINGS: DIAGNOSTIC CATEGORY 2--BENIGN FINDING. NO CHANGE FROM COMPARISON. Scattered benign-appearing calcifications are present. Scattered benign-appearing lymph nodes are present. RIGHT BREAST: No significant suspicious finding. LEFT BREAST: No significant suspicious finding. RECOMMENDATIONS: ROUTINE MAMMOGRAM AND CLINICAL EVALUATION IN 12 MONTHS. PLEASE NOTE: A NORMAL MAMMOGRAM DOES NOT EXCLUDE THE POSSIBILITY OF BREAST CANCER. A CLINICALLY SUSPICIOUS PALPABLE LUMP SHOULD BE BIOPSIED. Dictated by: Alex Shi MD on 05/31/2024 at 15:11 Approved by: Alex Shi MD on 05/31/2024 at 15:12 Dictated By: Alex Shi M.D. Signed By: 05/31/24 1514 DD/ 1513 TD/TT: Party Planner: PHANEUF HOSPITALJhoana HealthcareRadiology Study observation (narrative)[facility] TOMOSYNTHESIS SCREENING BIOrdered By: Radiologist Radiology on 10-12-6440[facility] Work Phone: cytology Cervical or vaginal smear or scraping study Ordered By: Jennifer Contreras on 62-86-8075EOKJSouthPointe Hospital TOMOSYNTHESIS SCREENING BIon 16-61-4987[place] [address] Mammography Report Signed Patient: SHAWNA GRIGSBY MR#: [id number] : 1980 Acct:[id number] Age/Sex: 42 / F ADM Date: 05/18/23 Loc: MAMMO Attending Dr: Vonnie Nicholas Ordering Physician: Vonnie Nicholas Results: Date of Service: 05/18/23 Follow Up: Procedure(s): MM tomosynthesis screening BI Accession Number(s): [id number] cc: Vonnie Nicholas; MONROE WHITAKER M.D. Patient Name: SHAWNA GRIGSBY MR#: [id number] : 1980 Exam Date: 05/18/2023 Ordering Doctor: SUZANNA Nicholas . RADIOLOGY REPORT PROCEDURE: MM TOMOSYNTHESIS SCREENING BI COMPARISON: MG MAMM SCREEN 3D MATTOE CAD, 05/06/2022. MG MAMM SCREEN 3D MATTEO CAD, 05/01/2021. MG MAMM SCREEN MATTEO W CAD, 08/19/2018. INDICATIONS: screening Calculator Name NCI Breast Cancer Risk Assessment Tool 5 Year Breast Cancer Risk 1.30% Lifetime Breast Cancer Risk 12.90% Personal Breast Cancer No Personal Ovarian Cancer No Treatments None Family Cancers Grandmother-maternal with breast cancer at age 60. LOCATION: [facility] BREAST COMPOSITION: Heterogeneously dense,which may obscure small [...] BIOPSIED. Dictated by: Rogelio Vazquez M.D. on 05/19/2023 at 13:11 Approved by: Rogelio Vazquez M.D. on 05/19/2023 at 13:26 Dictated By: Rogelio Vazquez M.D. Signed By: 05/19/23 132 DD/ 25 TD/TT: Party Planner:NILAadiologike, Radiologist, - 05/19/2023 [place] [address] Mammography Report Signed Patient: SHAWNA GRIGSBY MR#: [id number] : 1980 Acct:[id number] Age/Sex: 42 / F ADM Date: 05/18/23 Loc: MAMMO Attending Dr: Vonnie Nicholas Ordering Physician: Vonnie Nicholas Results: Date of Service: 05/18/23 Follow Up: Procedure(s): MM tomosynthesis screening BI Accession Number(s): [id number] cc: Vonnie Nicholas; MONROE WHITAKER M.D. Patient Name: SHAWNA GRIGSBY MR#: [id number] : 1980 Exam Date: 05/18/2023 Ordering Doctor: SUZANNA Nicholas . RADIOLOGY REPORT PROCEDURE: MM TOMOSYNTHESIS SCREENING BI COMPARISON: MG MAMM SCREEN 3D MATTEO CAD, 05/06/2022. MG MAMM SCREEN 3D MATTEO CAD, 05/01/2021. MG MAMM SCREEN MATTEO W CAD, 08/19/2018. INDICATIONS: screening Calculator Name NCI Breast Cancer Risk Assessment Tool 5 Year Breast Cancer Risk 1.30% Lifetime Breast Cancer Risk 12.90% Personal Breast Cancer No Personal Ovarian Cancer No Treatments None Family Cancers Grandmother-maternal with breast cancer at age 60. LOCATION: [facility] BREAST COMPOSITION: Heterogeneously dense,which may obscure small [...] BIOPSIED. Dictated by: Rogelio Vazquez M.D. on 05/19/2023 at 13:11 Approved by: Rogelio Vazquez M.D. on 05/19/2023 at 13:26 Dictated By: Rogelio Vazquez M.D. Signed By: 05/19/231326 DD/ 25 TD/TT: Party Planner: TRINY [facility] CenterRadiology Study observation (narrative)[facility] TOMOSYNTHESIS SCREENING BIOrdered By: Radiologist Radiology on 19-38-3058[facility] Work Phone: alanine aminotransferase [Enzymatic activity/volume] in Serum or PlasmaOrdered By: Damir Laughlin on 60-67-6884XOW [Catalytic activity/Vol]24 U/L7-52[facility] HospitalAlbumin [Mass/volume] in Serum or Plasma by Bromocresol green (BCG) dye binding methoOrdered By: Damir Laughlin on 80-04-5567Lgojrmw BCG dye [Mass/Vol]4.3 g/dL3.5-5.7FBucyrus Community HospitalAlkaline phosphatase [Enzymatic activity/volume] in Serum or PlasmaOrdered By: Damir Laughlin on 92-71-0087TKS [Catalytic activity/Vol]40 U/L 34-104Mer[facility] West HospitalAspartate aminotransferase [Enzymatic activity/volume] in Serum or PlasmaOrdered By: Damir Laughlin on 75-70-5511ROO [Catalytic activity/Vol]18 U/S37-80TlngvywmaMercy Health West HospitalBasophils Auto (Bld) [#/Vol]Ordered By: Damir Laughlin on 29-72-2291Zbcfcljbv (Bld) [#/Vol]0.1 10*3/uL0.0-0.2FBucyrus Community HospitalBasophils/100 WBC Auto (Bld)Ordered By: Damir Laughlin on 09-00-1780Zlloajubx/100 WBC (Bld)1.0 %. [facility] HospitalBilirubin.total [Mass/volume] in Serum or PlasmaOrdered By: Damir Laughlin on 37-07-9306Lfsoasyun [Mass/Vol]0.5 mg/dL 0.3-1.0[facility] HospitalCalcium [Mass/volume] in Serum or Plasma Ordered By: Damir Laughlin on 77-41-7502Joxkttp [Mass/Vol]9.3 mg/dL8.6-10.3 [facility] HospitalCarbon dioxide, total [Moles/volume] in Serum or PlasmaOrdered By: Damir Laughlin on 50-33-7420PK4 [Moles/Vol]29.7 mmol/L 21.0-31.0[facility] HospitalChloride [Moles/volume] in Serum or PlasmaOrdered By: Damir Loverow on 07-15-1249Osbdocve [Moles/Vol]108 mmol/L 98-107[facility] HospitalComplete Blood Count Auto Diffon 91-48-5416Qkyfshuty (Bld) [#/Vol]0.1 10*3/uLNormal0.0-0.2FBucyrus Community HospitalComment on above:Result Comment: PERFORMED BY: [place] [address] PATHOLOGIST MANAGER [employer] SP WALTERS M.D.Performed By: #### CMP, CBC #### [place] [address] USABasophils/100 WBC (Bld)1.0 %Normal.[facility] HospitalComment on above:Performed By: #### CMP, CBC #### [facility] [address] [place] [address] USAEosinophils (Bld) [#/Vol]0.6 10*3/uLHigh0.0-0.45[facility] HospitalComment on above:Performed By: #### CMP, CBC #### [place] [address] USAEosinophils/100 WBC (Bld)8.3 %Normal.[facility] HospitalComment on above:Performed By: #### CMP, CBC #### [place] [address] USAErythrocyte distribution width (RBC) [Ratio]14.5 %Normal 11.9-15.3FBucyrus Community HospitalComment on above:Performed By: #### CMP, CBC #### [facility] [address] [place] [address] USAHematocrit (Bld) [Volume fraction]44.6 %Nddzvr82.0-46.4 [facility] HospitalComment on above:Performed By: #### CMP, CBC #### [facility] [address] [place] [address] USAHemoglobin (Bld) [Mass/Vol]14.7 g/cDBpwjta13.8-15.4 [facility] HospitalComment on above:Performed By: #### CMP, CBC #### [facility] [address] [place] [address] USALymphocytes (Bld) [#/Vol]2.5 10*3/uLNormal1.00-4.8 [facility] HospitalComment on above:Performed By: #### CMP, CBC #### [place] [address] USALymphocytes/100 WBC (Bld)36.0 %Normal.[facility] HospitalComment on above:Performed By: #### CMP, CBC #### [facility] [address] [place] [address] USAMCH (RBC) [Entitic mass]30.2 snOnemsv74.7-34.3FBucyrus Community HospitalComment on above:Performed By: #### CMP, CBC #### [facility] [address] [place] [address] USAMCV (RBC) [Entitic vol]91.9 cLXsalym28-723EpjbrztyzMercy Health West HospitalCommymichigan medical center alma on above:Performed By: #### CMP, CBC #### [facility] [address] [place] [address] USAMean Corpuscular HGB Conc32.9 g/eRLpjzff14.0-35.0[facility] HospitalCommymichigan medical center alma on above:Performed By: #### CMP, CBC #### [facility] [address] [place] [address] USAMonocytes (Bld) [#/Vol]0.6 10*3/uLNormal0.0-0.8[facility] HospitalComment on above:Performed By: #### CMP, CBC #### [facility] [address] [place] [address] USAMonocytes/100 WBC (Bld)9.0 %Normal.[facility] HospitalComment on above:Performed By: #### CMP, CBC #### [facility] [address] [place] [address] USANeutrophils (Bld) [#/Vol]3.1 10*3/uLNormal1.8-7.7FBucyrus Community HospitalComment on above:Performed By: #### CMP, CBC #### [facility] [address] [place] [address] USANeutrophils/100 WBC (Bld)45.7 %Normal.[facility] HospitalComment on above:Performed By: #### CMP, CBC #### [facility] [address] [place] [address] USANRBC%0.1 /100{WBC}Normal0-0.5FBucyrus Community HospitalComment on above:Performed By: #### CMP, CBC #### [facility] [address] [place] [address] USAPlatelet mean volume (Bld) [Entitic vol]9.0 fLNormal 6.3-10.7FBucyrus Community HospitalComment on above:Performed By: #### CMP, CBC #### [facility] [address] [place] [address] USAPlatelets (Bld) [#/Vol]226 10*3/lSNppupq121-274YmxhawjboMercy Health West HospitalComment on above:Performed By: #### CMP, CBC #### [facility] [address] [place] [address] USARBC (Bld) [#/Vol]4.86 10*6/uLNormal3.60-5.00[facility] HospitalComment on above:Performed By: #### CMP, CBC #### [facility] [address] [place] [address] USAWBC (Bld) [#/Vol]6.9 10*3/uLNormal3.8-11.6FBucyrus Community HospitalComment on above:Performed By: #### CMP, CBC #### [place] [address] USAComprehensive Metabolic Panelon 12-20-4005Xkhyyva [Mass/Vol]4.3 g/dLNormal3.5-5.7FBucyrus Community HospitalComment on above:Performed By: #### CMP, CBC #### [place] [address] USAAlbumin/Globulin [Mass ratio]1.8 {ratio}NormalMercy Health West HospitalComment on above:Performed By: #### CMP, CBC #### [place] [address] USAALP [Catalytic activity/Vol]40 U/TRflivp56-357MucyfmvjnMercy Health West HospitalComment on above:Result Comment: PERFORMED BY: [place] [address] PATHOLOGIST MANAGER [employer] SP WALTERS M.D.Performed By: #### CMP, CBC #### [place] [address] USAALT [Catalytic activity/Vol]24 U/LNormal7-52[facility] HospitalComment on above:Performed By: #### CMP, CBC #### [place] [address] USAAnion gap [Moles/Vol]9.7 mmol/LNormal6.0-15.0[facility] HospitalComment on above:Performed By: #### CMP, CBC #### [place] [address] USAAST [Catalytic activity/Vol]18 U/STfsogs79-95CjnwqngvsMercy Health West HospitalComment on above:Performed By: #### CMP, CBC #### [place] [address] USABilirubin [Mass/Vol]0.5 mg/dLNormal0.3-1.0[facility] HospitalComment on above:Performed By: #### CMP, CBC #### [facility] [address] [place] [address] USACalcium [Mass/Vol]9.3 mg/dLNormal8.6-10.3FBucyrus Community HospitalComment on above:Performed By: #### CMP, CBC #### [facility] [address] [place] [address] USAChloride [Moles/Vol]108 mmol/LWtro10-116SfjzopohyMercy Health West HospitalComment on above:Performed By: #### CMP, CBC #### [facility] [address] [place] [address] USACO2 [Moles/Vol]29.7 mmol/ITrexjw65.0-31.0[facility] HospitalComment on above:Performed By: #### CMP, CBC #### [facility] [address] [place] [address] USACreatinine [Mass/Vol]0.89 mg/dLNormal0.60-1.20[facility] HospitalComment on above:Performed By: #### CMP, CBC #### [facility] [address] [place] [address] USAGFR/1.73 sq M.predicted MDRD (S/P/Bld) [Vol rate/Area] mL/min/{1.73_m2}NormalMercy Health West HospitalComment on above: Performed By: #### CMP, CBC #### [facility] [address] [place] [address] USAGlobulin (S) [Mass/Vol]2.4 g/dLNormalMercy Health West HospitalComment on above:Performed By: #### CMP, CBC #### [facility] [address] [place] [address] USAGlucose [Mass/Vol]85 mg/zKCycjpc55-545SqjyuncduMercy Health West HospitalComment on above:Result Comment: Random Glucose Reference Range is dependent on time and content of last meal. Glucose of more than 200 mg/dL in a nonstressed, ambulatory subject supports the diagnosis of Diabetes Mellitus. ADA recommended reference rangePerformed By: #### CMP, CBC #### [facility] [address] [place] [address] USAPotassium [Moles/Vol]4.4 mmol/LNormal3.5-5.1FBucyrus Community HospitalComment on above:Performed By: #### CMP, CBC #### [facility] [address] [place] [address] USAProtein [Mass/Vol]6.7 g/dLNormal6.4-8.9[facility] HospitalComment on above:Performed By: #### CMP, CBC #### [facility] [address] [place] [id number] USASodium [Moles/Vol]143 mmol/EBzwngo170-985YeqnlmzusMercy Health West HospitalComment on above:Performed By: #### CMP, CBC #### [facility] [address] [place] [address] USAUrea nitrogen [Mass/Vol]19 mg/dLNormal7-25Mer[facility] HospitalComment on above:Performed By: #### CMP, CBC #### [facility] [address] [place] [id number] USACreatinine [Mass/volume] in Serum or PlasmaOrdered By: Damir Laughlin on 20-13-6063Xvkdmfbbvv [Mass/Vol]0.89 mg/dL0.60-1.20[facility] HospitalEosinophils Auto (Bld) [#/Vol]Ordered By: Damir Laughlin on 25-88-4477Pjdmyljcgle (Bld) [#/Vol]0.6 10*3/uL0.0-0.45[facility] HospitalEosinophils/100 WBC Auto (Bld)Ordered By: Damir Laughlin on 47-74-2210Yvmwkzopzwr/100 WBC (Bld)8.3 %.[facility] Erythrocyte distribution width Auto (RBC) [Ratio]Ordered By: Damir Laughlin on 25-63-6570Qpnzncaoqgn distribution width (RBC) [Ratio]14.5 %11.9-15.3FBucyrus Community HospitalGlobulin Calc (S) [Mass/Vol]Ordered By: Damir Laughlin on 69-38-9850Iobbajac (S) [Mass/Vol]2.4 g/dLMercy Health West Hospital Glucose [Mass/volume] in Serum or PlasmaOrdered By: Damir Laughlin on 01-18-2023 Glucose [Mass/Vol]85 mg/yC46-924GyahpetyeMercy Health West HospitalComment on above:ADA recommended reference rangeRandom Glucose Reference Range is dependent on time and content of last meal. Glucose of more than 200 mg/dL in a nonstressed, ambulatory subject supports the diagnosisof Diabetes Mellitus. Hematocrit Auto (Bld) [Volume fraction]Ordered By: Damir Laughlin on 01-18-2023 Hematocrit (Bld) [Volume fraction]44.6 %34.0-46.4FBucyrus Community HospitalHemoglobin [Mass/volume] in BloodOrdered By: Damir Laughlin on 01-18-2023 Hemoglobin (Bld) [Mass/Vol]14.7 g/dL11.8-15.4FBucyrus Community Hospital Leukocytes [#/volume] corrected for nucleated erythrocytes in Blood by Automated counOrdered By: Damir Laughlin on 37-46-2142OZP corrected for nucl RBC Auto (Bld) [#/Vol]6.9 10*3/uL3.8-11.6FBucyrus Community HospitalLymphocytes Auto (Bld) [#/Vol]Ordered By: Damir Laughlin on 75-75-4436Cagoayaepwy (Bld) [#/Vol]2.5 10*3/uL1.00-4.8[facility] HospitalLymphocytes/100 WBC Auto (Bld)Ordered By: Damir Laughlin on 46-97-3236Hppmhduqfpc/100 WBC (Bld)36.0 %.[facility] WestH Auto (RBC) [Entitic mass]Ordered By: Damir Laughlin on 04-83-3626TWD (RBC) [Entitic mass]30.2 pg24.7-34.3FBucyrus Community HospitalMCHC Auto (RBC) [Mass/Vol]Ordered By: Damir Laughlin on 45-14-7672ZPBO (RBC) [Mass/Vol]32.9 g/dL32.0-35.0[facility] HospitalMCV Auto (RBC) [Entitic vol]Ordered By: Damir Laughlin on 46-79-9348TMA (RBC) [Entitic vol]91.9 iO35-435CidocotqwMercy Health West HospitalMonocytes Auto (Bld) [#/Vol]Ordered By: Damir Laughlin on 49-74-7516Dpllufvfg (Bld) [#/Vol]0.6 10*3/uL0.0-0.8[facility] HospitalMonocytes/100 WBC Auto (Bld) Ordered By: Damir Laughlin on 58-91-3366Jkjsvhwnp/100 WBC (Bld)9.0 %.[facility] HospitalNeutrophils Auto (Bld) [#/Vol]Ordered By: Damir Laughlin on 52-39-7446Xdbdtztvbpi (Bld) [#/Vol]3.1 10*3/uL1.8-7.7FBucyrus Community HospitalNeutrophils/100 WBC Auto (Bld)Ordered By: Damir Lauglhin on 68-68-1859Atzvrjblfkb/100 WBC (Bld)45.7 %.[facility] HospitalNo Panel InformationOrdered By: Damir Laughlin on 44-76-0602Brhbnnzin GFR (CKD-EPI) > 60.0 mL/MinMercy Health West HospitalPharmacy Creatinine Clearance (ChemN/AFBucyrus Community HospitalNucleated erythrocytes [Presence] in Blood by Automated countOrdered By: Damir Laughlin on 58-22-0720Ttobjwsld RBC Auto Ql (Bld)0.1 /100{WBC}0-0.5FBucyrus Community HospitalPlatelet mean volume Auto (Bld) [Entitic vol]Ordered By: Damir Laughlin on 18-77-7003Wntubcxo mean volume (Bld) [Entitic vol]9.0 fL6.3-10.7FBucyrus Community Hospital Platelets Auto (Bld) [#/Vol]Ordered By: Damir Laughlin on 70-36-5031Txttcelyj (Bld) [#/Vol]226 10*3/qH739-561Tyxddsuef Regional Medical CenterPotassium [Moles/volume] in Serum or PlasmaOrdered By: Damir Laughlin on 01-18-2023 Potassium [Moles/Vol]4.4 mmol/L3.5-5.1FBucyrus Community HospitalProtein [Mass/volume] in Serum or PlasmaOrdered By: Damir Laughlin on 50-04-1449Jmnhjkl [Mass/Vol]6.7 g/dL6.4-8.9[facility] HospitalRBC Auto (Bld) [#/Vol] Ordered By: Damir Laughlin on 54-51-2064LDD (Bld) [#/Vol]4.86 10*6/uL3.60-5.00 [facility] Health Daytonerum or plasma albumin/globulin mass ratio Ordered By: Damir Laughlin on 95-12-8985Biwxdop/Globulin [Mass ratio]1.8 {ratio} [facility]tering Health Daytonerum or plasma anion gap determinationOrdered By: Damir Laughlin on 24-31-5448Nlkbo gap [Moles/Vol]9.7 mmol/L6.0-15.0[facility] Daytonodium [Moles/volume] in Serum or PlasmaOrdered By: Damir Laughlin on 08-61-7324Kuxalx [Moles/Vol]143 mmol/A784-643IootmpznmMercy Health West HospitalUrea nitrogen [Mass/volume] in Serum or PlasmaOrdered By: Damir Laughlin on 11-47-7847Bpbm nitrogen [Mass/Vol]19 mg/dL7-25Mer[facility] HospitalWBC Auto (Bld) [#/Vol]Ordered By: Damir Laughlin on 92-31-7536GKM (Bld) [#/Vol]6.9 10*3/uL3.8-11.6FBucyrus Community Hospital Physician Referralon 18-72-9358Oxtjtobla Referral [id number]#1.00CD:[address] [place], [place] [address]Physician Referralon 03-72-5232Qhogfumqj Referral [id number]#1.00CD:127[facility] HospitalPAP ACOG PANEL 2: 30 to 65on 05-08-2022..NormalThe [facility] Comment on above:Result Comment: Performed at: WBPerformed By: #### [id number] ####[facility] [address] [place], [place] [address]Dr. Tahir Stein Gdln ACOG Ogkiugx84-66KxmlhkDryMercy Health Willard HospitalComment on above:Performed By: #### [id number] ####[facility] [address] [place], [place] [address]Dr. Tahir BarraganDIAGNOSIS:CommentDayton VA Medical CenterComment on above:Result Comment: UNSATISFACTORY FOR EVALUATION. Performed at: WBPerformed By: #### [id number] ####[facility] [address] [place], [place] [address]Dr. Tahir BarraganHPV AptimaNegativeNormal NegativeGrand Lake Joint Township District Memorial HospitalComment on above:Result Comment: This nucleic acid amplification test detects fourteen high-risk HPV types (16,18,31,33,35,39,45,51,52,56,58,59,66,68) without differentiation. Performed at: =GPerformed By: #### [id number] ####[facility] [address] [place], [place] [address]Dr. Tahir BarraganHPV Genotype ReflexComment Dayton VA Medical CenterCommymichigan medical center alma on above:Result Comment: Criteria not met, HPV Genotype not performed. Performed at: WBPerformed By: #### [id number] ####[facility] [address] [place], [place] [address]Dr. Tahir BarraganMethodology:CommentDayton VA Medical CenterComment on above:Result Comment: This liquid based ThinPrep(R) pap test was screened with the use of an image guided system. Performed at: WBPerformed By: #### [id number] ####[facility] [address] [place], [place] [address]Dr. Tahir BarraganNote:CommentDayton VA Medical CenterComment on above:Result Comment: The Pap smear is a screening test designed to aid in the detection of premalignant and malignant conditions of the uterine cervix. It is not a diagnostic procedure and should not be used as the sole means of detecting cervical cancer. Both false-positive and false-negative reports do occur. . Performed at: WBPerformed By: #### [id number] ####[facility] [address] [place] [address]Dr. Tahir BarraganPerformed by:CommentMorganMercy Health Perrysburg Hospital on above:Result Comment: Sapphire Gonzalez, Diesel Mechanic Apprentice (ASCP) Performed at: WBPerformed By: #### [id number] ####[facility] [address] [place] [address]Dr. Tahir Central HospitalQC reviewed by:CommentMercy Health on above:Result Comment: Jesenia Gómez, Supervisory Diesel Mechanic Apprentice (ASCP) Performed at: WBPerformed By: #### [id number] ####[facility] [address] [place] [address]Dr. Tahir BarraganRecommendation:CommentNoCleveland Clinic [facility] on above:Result Comment: Suggest follow up as clinically appropriate. Performed at: WBPerformed By: #### [id number] ####[facility] [address] [place] [address]Dr. Tahir BarraganSpecimen adequacy:Comment [facility] on above:Result Comment: Specimen processed and examined but unsatisfactory for evaluation of epithelial abnormality because of insufficient cellularity. Performed at: Performed By: #### [id number] ####[facility] [address] [place], [place] [address]Dr. Tahir [facility] MAMM SCREEN 3D MATTEO CADon 53-26-2471YZ MAMM SCREEN 3D MATTEO CADPatient: SHAWNA GRIGSBY Exam Date: 05/06/2022 : 1980 Gender:F Ordering : DR DELGADO BINGHAM . Admission #: [id number] Family : Order #: [id number] CLICK HERE TO VIEW EXAM RADIOLOGY REPORT [...] breast cancer at age 58. LOCATION: [facility] BREAST COMPOSITION: Heterogeneously dense,which may obscure small [...] by: Rogelio Vazquez M.D. on 05/06/2022 at 15:03NormalThParkwood HospitalBUNon 09-09-0372Jbtq nitrogen [Mass/Vol]17.0 mg/dLNormal7.0-18.0Grand [facility] Memorial HospitalComment on above:Performed By: #### CREA, LIPID, BUN, TSH, ELEC, LIVER #### [facility] [address] [place] [address] Dr. Tahir Segura AUTO DIFFon 53-58-2776IJZS #0.1 103/ulNormal0.0-0.1The [facility] CenterComment on above:Performed By: #### CBC #### [facility] [address] [place] [address] Dr. Tahir BarraganBasophils/100 WBC (Bld)1.2 %Normal0.2-2.0[facility] Comment on above:Performed By: #### CBC #### [facility] [address] [place] [address] Dr. Tahir Hoover #0.3 103/ulNormal0.0-0.7The [facility] Medical CenterComment on above: Performed By: #### CBC #### [facility] [address] [place] [address] Dr. Yilan ChangEosinophils/100 WBC (Bld)4.8 %Normal0.9-7.0[facility] Comment on above:Performed By: #### CBC #### [facility] [address] [place] [address] Dr. Tahir Jungrythrocyte distribution width (RBC) [Ratio]14.0 %Crtxks49.0-15.0 The [facility] CenterComment on above:Performed By: #### CBC #### [facility] [address] [place] [address] Dr. Tahir BarraganHematocrit (Bld) [Volume fraction]41.5 %Fwujit54.0-48.0The [facility] CenterComment on above:Performed By: #### CBC #### [facility] [address] [place] [address] Dr. Tahir BarraganHemoglobin (Bld) [Mass/Vol]13.8 g/nTAfigab65.0-16.0The [facility] CenterComment on above:Performed By: #### CBC #### [facility] [address] [place] [address] Dr. Tahir Calero #0.04 10e3/ulCritically high0.00-0.03[facility] Comment on above:Performed By: #### CBC #### [facility] [address] [place] [address] Dr. Tahir Calero %0.7 %Critically high0.0-0.5The [facility] Medical CenterComment on above:Performed By: #### CBC #### [facility] [address] [place] [address] Dr. Tahir StanleyMPH #2.1 103/ulNormal1.2-3.8The [facility] CenterComment on above:Performed By: #### CBC #### [facility] [address] [place] [address] Dr. Tahir Stanleymphocytes/100 WBC (Bld)34.1 %Ecajwj33.5-60.0The [facility] CenterComment on above:Performed By: #### CBC #### [facility] [address] [place] [address] Dr. Tahir Feng DIFF REQNONormalThe [facility] Medical CenterComment on above: Performed By: #### CBC #### [facility] [address] [place] [address] Dr. Tahir Salamanca (RBC) [Entitic mass]29.9 ytOlhcuk10.7-34.0The [facility]view Medical CenterComment on above:Performed By: #### CBC #### [facility] [address] [place] [address] Dr. Tahir Salamanca (RBC) [Mass/Vol]33.3 g/tAPciyrv04.9-35.2The [facility] CenterComment on above:Performed By: #### CBC #### [facility] [address] [place] [address] Dr. Tahir Salamanca (RBC) [Entitic vol]90.0 bEXlsrmv82.0-99.0The [facility] Medical CenterComment on above:Performed By: #### CBC #### [facility] [address] [place] [address] Dr. Tahir Mo #0.6 103/ulNormal0.3-0.8The [facility] Medical CenterComment on above:Performed By: #### CBC #### [facility] [address] [place] [address] Dr. Tahir Estevesocytes/100 WBC (Bld)9.4 %Normal1.7-12.0The [facility] Comment on above:Performed By: #### CBC #### [facility] [address] [place] [address] Dr. Tahir Davis #3.0 103/ulNormal1.4-6.5The [facility] Medical CenterComment on above:Performed By: #### CBC #### [facility] [address] [place] [address] Dr. Tahir Wardutrophils/100 WBC (Bld)49.8 %Shfwem11.0-75.0The [facility] Medical CenterComment on above:Performed By: #### CBC #### [facility] [address] [address] [address] Tahir Thomsonlet mean volume (Bld) [Entitic vol]10.6 fLNormal9.5-13.5The [facility] Hospitalment on above:Performed By: #### CBC #### [facility] [address] [address] [address] Tahir BarraganPLT251 103/fdTpmzrj272-668Zuj [facility] CenterComment on above: Performed By: #### CBC #### [facility] [address] [address] [address] Tahir BarraganRBC4.61 106/ulNormal4.20-5.40The [facility] CenterComment on above:Performed By: #### CBC #### [facility] [address] [address] [address] Tahir BarraganWBC6.0 103/ulNormal4.0-11.0The [facility] CenterComment on above: Performed By: #### CBC #### [facility] [address] [address] [address] Tahir BarraganCREATININEon 42-02-3150Ofutpdmzao [Mass/Vol]0.68 mg/dLNormal 0.55-1.02The [facility] on above:Performed By: #### CREA, LIPID, BUN, TSH, ELEC, LIVER ####[facility] [address] [address]Dr. Tahir ChangEGFR-AF CITIZ[place]>60Normal>=60The [facility] Medical CenterComment on above:Performed By: #### CREA, LIPID, BUN, TSH, ELEC, LIVER ####[facility] [address] [address]Dr. Tahir ChangEGFR-NON AF CITIZEN OF [place]>60Normal>=60The [facility] Comment on above:Performed By: #### CREA, LIPID, BUN, TSH, ELEC, LIVER ####[facility] [address] [address]DrWilber Haro ChangELECTROLYTESon 05-47-5481Rjbpd gap [Moles/Vol]9.2 mmol/LNormalGrand Lake Joint Township District Memorial HospitalComment on above:Performed By: #### CREA, LIPID, BUN, TSH, ELEC, LIVER #### [facility] [address] [address] [address] Tahir BarraganChloride [Moles/Vol]105 mmol/VMitbcs20-067ZtlGrand Lake Joint Township District Memorial Hospital Comment on above:Performed By: #### CREA, LIPID, BUN, TSH, ELEC, LIVER #### [facility] [address] [address] [address] Tahir BarraganCO2 [Moles/Vol]29.7 mmol/XQgitxo06.0-32.0[facility] Comment on above:Performed By: #### CREA, LIPID, BUN, TSH, ELEC, LIVER #### [facility] [address] [place] [address] Dr. Tahir BarraganPotassium [Moles/Vol]3.9 mmol/LNormal3.5-5.1[facility] Comment on above:Performed By: #### CREA, LIPID, BUN, TSH, ELEC, LIVER #### [facility] [address] [address] [address] Tahir BarraganSodium [Moles/Vol]140 mmol/KHdzssi225-210MkwGrand Lake Joint Township District Memorial Hospital Comment on above:Performed By: #### CREA, LIPID, BUN, TSH, ELEC, LIVER #### [facility] [address] [place] [address] Dr. Tahir BarraganGLYCOHEMOGLOBIN A1Con 49-19-8748YWE RECOMMENDATIONSEE BELOWNoKettering Health Washington TownshipComment on above:Result Comment: ADA RECOMMENDED LIMIT 4.0 - 6.0 ADA THERAPEUTIC TARGET < 7.0 ACTION SUGGESTED > 7.0Performed By: #### A1C #### [facility] [address] [place] [address] Dr. Tahir BarraganGlucose [Mass/Vol]108 mg/dLNoMercy Health Willard HospitalComment on above:Performed By: #### A1C #### [facility] [address] [place] [address] Dr. Tahir BarraganHbA1c (Bld) [Mass fraction]5.4 %Normal4.5-6.2The [facility] Medical CenterComment on above:Performed By: #### A1C #### [facility] [address] [place] [address] Dr. Tahir RawlsID PROFILEon 97-84-0630SAQH-HDL RATIO NORMSEE BELOWNoMercy Health Willard HospitalComment on above:Result Comment: 3.3 - 4.4 LOW RISK 4.4 - 7.1 AVERAGE RISK 7.1 - 11.0 MODERATE RISK >11.0 HIGH RISKPerformed By: #### CREA, LIPID, BUN, TSH, ELEC, LIVER #### [facility] [address] [place] [address] Dr. Tahir Noelesterol [Mass/Vol]177 mg/dLNormal<=200The [facility] Comment on above:Performed By: #### CREA, LIPID, BUN, TSH, ELEC, LIVER #### [facility] [address] [place] [address] Dr. Tahir Noelesterol in HDL [Mass/Vol]69 mg/dLCritically hvgz97-72Fvg [facility] CenterComment on above:Performed By: #### CREA, LIPID, BUN, TSH, ELEC, LIVER #### [facility] [address] [place] [address] Dr. Tahir Noelesterol in LDL [Mass/Vol]100.0 mg/dLNormLancaster Municipal HospitalComment on above:Performed By: #### CREA, LIPID, BUN, TSH, ELEC, LIVER #### [facility] [address] [place] [address] Dr. Tahir Benson.total/Cholesterol in HDL [Mass ratio]2.6 {ratio} NormalThe [facility] Medical CenterComment on above:Performed By: #### CREA, LIPID, BUN, TSH, ELEC, LIVER #### [facility] [address] [place] [address] Dr. Tahir ArzolaL NORMAL> or = 60 mg/dl - LOW CARDIOVASCULAR RISK <40 mg/dl - HIGH CARDIOVASCULAR RISKNoMercy Health Willard HospitalComment on above:Performed By: #### CREA, LIPID, BUN, TSH, ELEC, LIVER #### [facility] [address] [place] [address] Dr. Tahir Craig CALC NORMALSEE BELOWDayton VA Medical CenterComment on above:Result Comment: <100 mg/dl OPTIMAL 100 - 129 mg/dl NEAR OR ABOVE OPTIMAL 130 - 159 mg/dl BORDERLINE HIGH 160 - 189 mg/dl HIGH >190 mg/dl VERY HIGH Performed By: #### CREA, LIPID, BUN, TSH, ELEC, LIVER #### [facility] [address] [place] [address] Dr. Tahir BarraganTriglyceride [Mass/Vol]40 mg/dLNormal<=150The [facility] Comment on above:Performed By: #### CREA, LIPID, BUN, TSH, ELEC, LIVER #### [facility] [address] [place] [address] Dr. Tahir BarraganVLDL CALC8.0 mg/dLNoMercy Health Willard HospitalCommymichigan medical center alma on above: Performed By: #### CREA, LIPID, BUN, TSH, ELEC, LIVER #### [facility] [address] [place] [address] Dr. Tahir Chang PROFILEon 35-34-2858Fwtqxcm [Mass/Vol]3.9 g/dLNormal3.4-5.0 The [facility] CenterCommymichigan medical center alma on above:Performed By: #### CREA, LIPID, BUN, TSH, ELEC, LIVER #### [facility] [address] [place] [address] Dr. Tahir BarraganAlbumin/Globulin [Mass ratio]1.1 {ratio}NormalGrand Lake Joint Township District Memorial HospitalCommymichigan medical center alma on above:Performed By: #### CREA, LIPID, BUN, TSH, ELEC, LIVER #### [facility] [address] [place] [address] Dr. Tahir Anne [Catalytic activity/Vol]78 U/JXkxvdy38-517BbdOhioHealth Arthur [facility] on above:Performed By: #### CREA, LIPID, BUN, TSH, ELEC, LIVER #### [facility] [address] [place] [address] Dr. Tahir Gonzalez [Catalytic activity/Vol]16 U/ZLkvvsq70-73Hps [facility] on above:Performed By: #### CREA, LIPID, BUN, TSH, ELEC, LIVER #### [facility] [address] [place] [address] Dr. Tahir Griffiths [Catalytic activity/Vol]9 U/LCritically edn98-63Vqr [facility] Hospitalment on above:Performed By: #### CREA, LIPID, BUN, TSH, ELEC, LIVER #### [facility] [address] [place] [address] Dr. Tahir LeavittI, CONJUGATED0.1 mg/dLNormal0.0-0.2The [facility] Comment on above:Performed By: #### CREA, LIPID, BUN, TSH, ELEC, LIVER #### [facility] [address] [place] [address] Dr. Tahir Leavittirubin [Mass/Vol]0.4 mg/dLNormal0.2-1.0[facility] Comment on above:Performed By: #### CREA, LIPID, BUN, TSH, ELEC, LIVER #### [facility] [address] [place] [address] Dr. Tahir BarraganGlobulin (S) [Mass/Vol]3.5 g/dLNormalThe [facility] CenterCommymichigan medical center alma on above:Performed By: #### CREA, LIPID, BUN, TSH, ELEC, LIVER #### [facility] [address] [place] [address] Dr. Tahir BarraganProtein [Mass/Vol]7.4 g/dLNormal6.4-8.2The [facility] Comment on above:Performed By: #### CREA, LIPID, BUN, TSH, ELEC, LIVER #### [facility] [address] [place] [address] Dr. Tahir Howell RATE WESTERGRENon 09-30-2834CTJ RATE24 mm/hrCritically high <=20The [facility] CenterComment on above:Performed By: #### SEDR #### [facility] [address] [place], [place] [address] Dr. Tahir Webb 70-16-7392JSC4.848 uIU/mLNormal0.358-3.740The [facility] CenterComment on above:Performed By: #### CREA, LIPID, BUN, TSH, ELEC, LIVER #### [facility] [address] [place], [place] [address] Dr. Tahir BarraganActivated partial thromboplastin time (aPTT) in platelet poor plasma by coagulation aOrdered By: Damir Laughlin on 89-34-1970kYRB Coag (PPP) [Time]30.3 s25.1-36.5FBucyrus Community HospitalAutomated epithelial cells count in urine sediment (number/area)Ordered By: Damir Laughlin on 10-08-2021 Epithelial cells Auto (Urine sed) [#/Area]None seen [HPF][facility] HospitalAutomated erythrocytes count in urine sediment (number/area) Ordered By: Damir Laughlin on 83-11-0163VOF Auto (Urine sed) [#/Area]None seen [HPF][facility] HospitalAutomated leukocytes count in urine sediment (number/area)Ordered By: Damir Laughlin on 08-51-6143NPW Auto (Urine sed) [#/Area]None seen [HPF][facility] HospitalAutomated urine hyaline casts count (number/volume)Ordered By: Damir Laughlin on 10-08-2021 Hyaline casts Auto (U) [#/Vol]None seen [LPF][facility] Basophils Auto (Bld) [#/Vol]Ordered By: Damir Laughlin on 02-56-6651Niavlecvd (Bld) [#/Vol]0.1 10*3/uL0.0-0.2FBucyrus Community HospitalBasophils/100 WBC Auto (Bld)Ordered By: Damir Laughlin on 39-58-6552Dghcdrfte/100 WBC (Bld)1.0 %[facility] HospitalBilirubin Test strip Ql (U)Ordered By: Damir Laughlin on 43-61-4355Eodjuqpqw Ql (U)NegativeNegativeMercy Health West HospitalBlood hemoglobin measurement (mass/volume)Ordered By: Damir Laughlin on 29-99-0110Mrhdgrmamd (Bld) [Mass/Vol]12.9 g/dL11.8-15.4FBucyrus Community HospitalBlood leukocytes automated count (number/volume)Ordered By: Damir Laughlin on 66-70-2441QAW (Bld) [#/Vol]7.1 10*3/uL4.5-11.0[facility] HospitalBody fluid albumin measurement (mass/volume)Ordered By: Monroe Whitaker on 13-91-5506Vxencfn (Body fld) [Mass/Vol]4.1 g/dL3.2-5.5 [facility] HospitalColor Auto (U)Ordered By: Damir Laughlin on 01-59-5620Zstad (U)YellowYellowMercy Health West HospitalCreatine kinase [Enzymatic activity/volume] in Serum or PlasmaOrdered By: Monroe Whitaker on 22-82-7319NU [Catalytic activity/Vol]123 U/B55-460OvkiqluiuMercy Health West HospitalCreatinine and Glomerular filtration rate.predicted panel (S/P/Bld)Ordered By: Monroe Whitaker on 16-64-8251Vjghydurbb [Mass/Vol]0.78 mg/dL0.44-1.03 [facility] HospitalEosinophils Auto (Bld) [#/Vol]Ordered By: Damir Laughlin on 30-06-4885Cvuhedhygxe (Bld) [#/Vol]0.4 10*3/uL0.0-0.45 [facility] HospitalEosinophils/100 WBC Auto (Bld)Ordered By: Damir Laughlin on 45-76-9500Qqdbgytbzpe/100 WBC (Bld)5.1 %[facility] HospitalErythrocyte distribution width Auto (RBC) [Ratio]Ordered By: Damir Laughlni on 57-82-0946Ycsbdonjsok distribution width (RBC) [Ratio]15.0 % 11.9-15.3FBucyrus Community HospitalErythrocyte sedimentation rate by Photometric methodOrdered By: Damir Laughlin on 36-67-1336ZGM Photometric method (Bld) [Velocity]15 mm/hr0-19[facility] HospitalEstimated glomerular filtration rate (GFR) non- AmericanOrdered By: Monroe Whitaker on 97-80-2045MLA/1.73 sq M.predicted among non-blacks MDRD (S/P/Bld) [Vol rate/Area]> 60 mL/MinMercy Health West HospitalGlobulin Calc (S) [Mass/Vol]Ordered By: Monroe Whitaker on 24-97-2186Zrhdltrd (S) [Mass/Vol]2.2 g/dLMercy Health West HospitalGlucose mean value [Mass/volume] in Blood Estimated from glycated hemoglobinOrdered By: Monroe Whitaker on 10-08-2021 Average glucose Estimated from glycated hemoglobin (Bld) [Mass/Vol]108 mg/dL [facility] HospitalHematocrit Auto (Bld) [Volume fraction]Ordered By: Damir Laughlin on 10-52-3519Ljokoiciss (Bld) [Volume fraction]38.6 % 34.0-46.4FBucyrus Community HospitalHemoglobin A1c percentageOrdered By: Monroe Whitaker on 68-19-3803XcI6y (Bld) [Mass fraction]5.4 %4.3-5.6FBucyrus Community HospitalComment on above:Increased risk for diabetes: 5.7 - 6.4 diabetes: >6.4 glycemic control for adults with diabetes: <7.0Ketones Auto test strip (U) [Mass/Vol]Ordered By: Damir Laughlin on 54-20-9304Jatsmuf (U) [Mass/Vol]Negative NegativeMercy Health West HospitalLaboratory - CoagulationOrdered By: Damir Laughlin on 07-57-3405AF Coag (PPP) [Time]11.7 s9.0-12.9[facility] HospitalLaboratory - Hematology and Cell countsOrdered By: Damir Laughlin on 06-30-9955Jqwylglzv RBC/100 WBC (Bld) [Ratio]0.0 %0-0.5FBucyrus Community HospitalLymphocytes Auto (Bld) [#/Vol]Ordered By: Damir Laughlin on 89-12-2408Elzkjswiubb (Bld) [#/Vol]2.2 10*3/uL1.00-4.8[facility] HospitalLymphocytes/100 WBC Auto (Bld)Ordered By: Damir Laughlin on 10-08-2021 Lymphocytes/100 WBC (Bld)31.5 %[facility] WestH Auto (RBC) [Entitic mass]Ordered By: Damir Laughlin on 63-53-4314YBP (RBC) [Entitic mass] 30.2 pg24.7-34.3FBucyrus Community HospitalMCHC Auto (RBC) [Mass/Vol] Ordered By: Damir Laughlin on 18-58-4894RTNC (RBC) [Mass/Vol]33.3 g/dL32.0-35.0 [facility] HospitalMCV Auto (RBC) [Entitic vol]Ordered By: Damir Laughlin on 12-91-7520PVL (RBC) [Entitic vol]90.7 wS27-750PabqcktzuMercy Health West HospitalMonocytes Auto (Bld) [#/Vol]Ordered By: Damir Laughlin on 98-26-1893Dzkluftyt (Bld) [#/Vol]0.5 10*3/uL0.0-0.8[facility] HospitalMonocytes/100 WBC Auto (Bld)Ordered By: Damir Laughlin on 10-08-2021 Monocytes/100 WBC (Bld)7.5 %[facility] HospitalNeutrophils Auto (Bld) [#/Vol]Ordered By: Damir Laughlin on 11-02-1505Xccobtzcawe (Bld) [#/Vol] 3.9 10*3/uL1.8-7.7FBucyrus Community HospitalNeutrophils/100 WBC Auto (Bld)Ordered By: Damir Laughlin on 09-62-8649Zruqmlnrkdz/100 WBC (Bld)54.9 % [facility] HospitalNitrite Test strip Ql (U)Ordered By: Damir Laughlin on 41-33-8381Ccncuvi Ql (U)NegativeNegativeMercy Health West HospitalNo Panel InformationOrdered By: Monroe Whitaker on 72-75-3458Ovhfiaypg GFR ()> 60 mL/MinMercy Health West HospitalComment on above: GFR estimated reference range: According to KDOQI guidelines, <60 ml/min/1.73m2 is sufficient todiagnose a patient with chronic kidney disease.Pharmacy Creatinine Clearance (ChemN/AFBucyrus Community HospitalPlatelet mean volume Auto (Bld) [Entitic vol]Ordered By: Damir Laughlin on 65-16-9296Jwdrokpg mean volume (Bld) [Entitic vol]9.7 fL6.3-10.7FBucyrus Community Hospital Platelet poor plasma international normalized ratio (INR) by coagulation assay (relatOrdered By: Damir Laughlin on 12-67-7653DTL Coag (PPP) [Relative time]1.0 {INR}[facility] HospitalComment on above:INR Therapeutic Range A) Pre- and Peroperative OAT started two weeks before surgery. NOT HIP SURGERY: 1.5 - 2.5 HIP SURGERY: 2 - 3 B) Primary and secondary prevention of venous THROMBOSIS: 2 - 3 C) Active venous thrombosis, pulmonary embolism and prevention of recurrent venous thrombosis: 2 - 3 D) Prevention of arterial thromboembolism including patients with mechanical heart valves: 3 - 4.5Platelets Auto (Bld) [#/Vol]Ordered By: Damir Laughlin on 79-19-0739Dtdbosdvy (Bld) [#/Vol]226 10*3/zD505-039ThbrwvjrwMercy Health West HospitalProtein Auto test strip (U) [Mass/Vol]Ordered By: Damir Laughlin on 75-37-5387Uoodyxg (U) [Mass/Vol]Negative NegativeMercy Health West HospitalProtein [Mass/volume] in Serum or PlasmaOrdered By: Monore Whitaker on 81-60-1837Umsepvz [Mass/Vol]6.3 g/dL6.1-7.9 [facility] HospitalRBC Auto (Bld) [#/Vol]Ordered By: Damir Laughlin on 61-95-6151YKM (Bld) [#/Vol]4.25 10*6/uL3.60-5.00[facility]tering Health Daytonerum or plasma C reactive protein measurement (mass/volume) Ordered By: Damir Laughlin on 41-07-8169HWO [Mass/Vol]0.5 mg/dL0.0-1.0[facility]tering Health Daytonerum or plasma alanine aminotransferase measurement without P-5'-P (enzymatic activiOrdered By: Monroe Whitaker on 43-04-0465TBI No additional P-5'-P [Catalytic activity/Vol]20 U/C04-26KkfusfmawKettering Health Daytonerum or plasma albumin/globulin mass ratioOrdered By: Monroe Whitaker on 85-81-2917Ftbbyqh/Globulin [Mass ratio]1.9 {ratio}[facility]tering Health Daytonerum or plasma alkaline phosphatase measurement (enzymatic activity/volume)Ordered By: Monroe Whitaker on 51-63-3921EBA [Catalytic activity/Vol]48 U/G29-33GfoefpkgiKettering Health Daytonerum or plasma aspartate aminotransferase measurement (enzymatic activity/volume)Ordered By: Monroe Whitaker on 09-30-6077EFM [Catalytic activity/Vol]17 U/M72-07QrgsqwixaKettering Health Daytonerum or plasma calcium measurement (mass/volume)Ordered By: Monroe Whitaker on 20-76-6176Iwuwvlf [Mass/Vol]9.2 mg/dL8.2-10.2FUC Medical Centererum or plasma chloride measurement (moles/volume) Ordered By: Monroe Whitaker on 80-72-9166Sgyspova [Moles/Vol]105 mmol/L95-114 [facility] Daytonerum or plasma glucose measurement (mass/volume)Ordered By: Monroe Whitaker on 54-07-4591Dwzxmdl [Mass/Vol]92 mg/dL 70-100[facility] HospitalComment on above:ADA recommended reference range Random Glucose Reference Range is dependent on time and content of last meal. Glucose of more than 200 mg/dL in a nonstressed, ambulatory subject supports the diagnosis of Diabetes Mellitus.Serum or plasma potassium measurement (moles/volume)Ordered By: Monroe Whitaker on 26-75-0625Vxthdgpym [Moles/Vol]4.0 mmol/L3.5-5.1FUC Medical Centererum or plasma sodium measurement (moles/volume)Ordered By: Monroe Whitaker on 69-75-0310Fzfgsl [Moles/Vol]138 mmol/Y929-747JsvorzjxsKettering Health Daytonerum or plasma total bilirubin measurement (mass/volume)Ordered By: Monroe Whitaker on 63-32-7844Ugrihxows [Mass/Vol]0.7 mg/dL0.3-1.2FUC Medical Centererum or plasma total carbon dioxide measurement (moles/volume)Ordered By: Monroe Whitaker on 02-30-1573EZ3 [Moles/Vol]22.1 mmol/L22.0-30.0[facility] Serum or plasma urea nitrogen measurement (mass/volume)Ordered By: Monroe Whitaker on 87-06-3885Eaga nitrogen [Mass/Vol]15 mg/dL9-23[facility] Health Daytonpecific gravity Auto test strip (U) [Rel density]Ordered By: Damir Laughlin on 94-24-8163Anwdpjzp gravity (U) [Rel density]1.0051.001-1.030 [facility] HospitalTS DL <= 0.005 mIU/L QnOrdered By: Damir Laughlin on 40-22-5652KCH Qn0.65 m[IU]/L0.45-5.33[facility] Thyroxine (T4) free [Mass/volume] in Serum or PlasmaOrdered By: Damir Laughlin on 55-82-3345Upgz T4 [Mass/Vol]1.29 ng/dL0.61-1.12[facility] HospitalUrine bacteria detection by automated methodOrdered By: Damir Laughlin on 89-81-6181Hdcghljr Auto Ql (U)None seenNone SeenMercy Health West HospitalUrine clarity by refractometry automatedOrdered By: Damir Laughlin on 97-79-4502Mciarbu Refractometry automated (U)ClearCleHocking Valley Community HospitalUrine glucose measurement by automated test strip (mass/volume) Ordered By: Damir Laughlin on 90-70-1580Ztrmylz Auto test strip (U) [Mass/Vol] Normal mg/dLNormUniversity Hospitals TriPoint Medical CenterUrine hemoglobin detection by automated test stripOrdered By: Damir Laughlin on 25-23-8423Ouudstmpsf Auto test strip Ql (U)NegativeNegOur Lady of Mercy HospitalUrine leukocyte esterase detection by automated test stripOrdered By: Damir Laughlin on 81-17-2286Zsygulmxi esterase Auto test strip Ql (U)NegativeNegOur Lady of Mercy HospitalUrobilinogen Auto test strip (U) [Mass/Vol]Ordered By: Damir Laughlin on 85-92-7770Txzvydkbtqbz (U) [Mass/Vol]Normal mg/dLNormal [facility] HospitalpH Auto test strip (U)Ordered By: Damir Laughlin on 97-45-8741aT (U)7.5 [pH]5.0-9.0[facility] Vital Signs Date TimeVital SignValuePerforming ZalboupghKajonerv35-61-1505 13:05-0500Body vegmdh285.4 Raymond Islas MD Work Phone: [phone]11-03-2025 13:05-0500Body mass index (BMI) [Ratio]33.2 kg/q9UudarEdward Islas MD Work Phone: [phone]11-03-2025 13:05-0500Body .11 kgEdward Islas MD Work Phone: [phone]64[facility]09-24-2025 14:00-0400Diastolic blood vslzulbp33 mm[Hg]Edward Islas MD Work Phone: [phone]09-24-2025 14:00-0400Heart rate 86 /minEdward Islas MD Work Phone: [phone]40[facility]09-24-2025 14:00-0400 Respiratory rate19 /minEdward Islas MD Work Phone: [phone]88[facility]09-24-2025 14:00-0400Systolic blood zwgmdecx731 mm[Hg]Edward Islas MD Work Phone: [phone]09-24-2025 12:00-0400Body sepvxccxppd87.2 [degF]Edward Islas MD Work Phone: [phone]93[facility]09-24-2025 12:00-4019XaJ2% (BldA) [Mass fraction]95 %Edward Islas MD Work Phone: [phone]09-24-2025 04:00-0400Body mass index (BMI) [Ratio]33.71 kg/d0OicfuEdward Islas MD Work Phone: [facility]09-24-2025 04:00-0400Body .3 kgEdward Islas MD Work Phone: [facility]09-23-2025 20:00-0400Body zadjuq156.4 Raymond Islas MD Work Phone: [facility]08-26-2025 09:41-0400Diastolic blood nbqprpuq198 mm[Hg]Monroe Whitaker JR Work Phone: 1([phone])211-[address] [place], [place] 4470808-26-2025 09:41-0400 Heart rate91 /minMonroe Whitaker JR Work Phone: [phone] [place], [place] 4470808-26-2025 09:41-0400 Systolic blood jvynpjwr275 mm[Hg]Monroe Whitaker JR Work Phone: [phone] [place], [place] 4470808-26-2025 09:28-0400 Body .67 cmChardennis Whitaker JR Work Phone: [phone] [place], [place] 4470808-26-2025 09:28-0400 Body mass index (BMI) [Ratio]33.2 kg/e8PqzkzurMonroe Whitaker JR Work Phone: [phone]08-26-2025 09:28-0400 Body njtjec43.47 kgMonroe Whitaker JR Work Phone: [phone])330-[address] [place], [place] 4470807-18-2025 10:48-0400 Body upyebd441.7 cmHarsha Ojeda MD Work Phone: [facility]07-18-2025 10:48-0400 Body mass index (BMI) [Ratio]32.27 kg/v0PgfyfvlHarsha Ojeda MD Work Phone: [facility]07-18-2025 10:48-0400 Body cuhrubamcrb43.8 [degF]Harsha Ojeda MD Work Phone: [phone]07-18-2025 10:48-0400 Body nkasyt45.2 kgHarsha Ojeda MD Work Phone: [address] [place], [place] 6229807-18-2025 10:48-0400 Diastolic blood sutsllyn95 mm[Hg]Harsha Ojeda MD Work Phone: [address] [place], [place] 6229807-18-2025 10:48-0400 Heart ydka736 /minHarsha Ojeda MD Work Phone: [address] [place], [place] 6229807-18-2025 10:48-0400 SaO2% (BldA) [Mass fraction]98 %Harsha Ojeda MD Work Phone: [address] [place], [place] 6229807-18-2025 10:48-0400 Systolic blood otxdtthj319 mm[Hg]Harsha Ojeda MD Work Phone: [address] [place], [place] 6229807-01-2025 11:00-0400 Diastolic blood jlxucyhe26 mm[Hg]Harsha Ojeda MD Work Phone: [address] [place], [place] 6229807-01-2025 11:00-0400 Heart rate96 /minHarsha Ojeda MD Work Phone: [address] [place], [place] 6229807-01-2025 11:00-0400 Respiratory rate17 /minHarsha Ojeda MD Work Phone: [address] [place], [place] 6229807-01-2025 11:00-0400 SaO2% (BldA) [Mass fraction]94 %Harsha Ojeda MD Work Phone: [address] [place], [place] 6229807-01-2025 11:00-0400 Systolic blood tibrutkp976 mm[Hg]Harsha Ojeda MD Work Phone: [address] [place], [place] 6229807-01-2025 10:00-0400 Body loauyokmndo85.2 [degF]Harsha Ojeda MD Work Phone: [address] [place], [place] 6229807-01-2025 08:00-0400 Body mass index (BMI) [Ratio]30.9 kg/t8PrmupeuHarsha Ojeda MD Work Phone: [facility]07-01-2025 08:00-0400 Body sbtisn21 kgHarsha Ojeda MD Work Phone: [facility]06-30-2025 11:00-0400 Body tcdqji963.7 cmHarsha Ojeda MD Work Phone: [facility]05-19-2025 12:30-0400 Diastolic blood auomuvwv44 mm[Hg][address] 10-09-2024 12:30-0400Heart rate68 /minCmc [address] [place] [address] 10-09-2024 12:30-0400Respiratory rate16 /minCmc [address] [place], [place] 8604705-19-2025 12:30-9438TtM1% (BldA) [Mass fraction]98 %[address]05-19-2025 12:30-0400Systolic blood julqkjvj871 mm[Hg][address]05-19-2025 09:05-0400Body yytrxqlpuvc59.6 [degF][address]04-16-2025 10:02-0400Body height 154.7 cmAlanna Pennintgon MD Work Phone: [facility]04-16-2025 10:02-0400 Body mass index (BMI) [Ratio]31.97 kg/m2Alanna Pennington MD Work Phone: [facility]04-16-2025 10:02-0400 Body bjmpwboqggl92 [degF]Alanna Pennington MD Work Phone: [facility]04-16-2025 10:02-0400 Body tassjv76.52 kgAlanna Pennington MD Work Phone: [facility]04-16-2025 10:02-0400 Diastolic blood mm[Hg]Alanna Pennington MD Work Phone: [facility]04-16-2025 10:02-0400 Heart rate85 /Nomi Pennington MD Work Phone: [phone])774-[facility]04-16-2025 10:02-0400 Respiratory rate16 /Nomi Pennington MD Work Phone: [phone])932-[address] [place], [place] 4622004-16-2025 10:02-0400 SaO2% (BldA) [Mass fraction]96 %Alanna Pennington MD Work Phone: 1(216)877-[address] [place], [place] 4622004-16-2025 10:02-0400 Systolic blood mm[Hg]Alanna Pennington MD Work Phone: [phone]03-17-2025 13:17-0400 Body dbxmunalakc73.2 [degF]Yanet Pacheco MD Work Phone: 1(216)[address] [place], [place] 9231103-17-2025 13:17-0400 Diastolic blood iwkdeyhb13 mm[Hg]Yanet Pacheco MD Work Phone: 1(216)[address] [place], [place] 9231103-17-2025 13:17-0400 Heart rate70 /Manoj Pacheco MD Work Phone: 1216)[address] [place], [place] 9231103-17-2025 13:17-0400 Respiratory rate16 /Manoj Pacheco MD Work Phone: 1216)[address] [place], [place] 9231103-17-2025 13:17-0400 SaO2% (BldA) [Mass fraction]98 %Yanet Pacheco MD Work Phone: 1(216)[address] [place], [place] 9231103-17-2025 13:17-0400 Systolic blood lrbqvsde503 mm[Hg]Yanet Pacheco MD Work Phone: 1(216)[address] [place], [place] 9231103-17-2025 06:37-0400 Body ukzfha276.4 Desiree Pacheco MD Work Phone: 1(216)[address] [place], [place] 9231103-17-2025 06:37-0400 Body mass index (BMI) [Ratio]31 kg/b5UuljoowYanet Pacheco MD Work Phone: 1(216)744-[address] [place], [place] 2178303-17-2025 06:37-0400 Body yljhxj65 kgYanet Pacheco MD Work Phone: 1(180)[address]02-25-2025 11:21-0500 Body sdxwdi751.1 cmRregina Pacheco MD Work Phone: 1(828)[address] [place], [place] 9231102-25-2025 11:21-0500 Body mass index (BMI) [Ratio]31.91 kg/w8UnuikukYanet Pacheco MD Work Phone: 1(382)[address]02-25-2025 11:21-0500 Body kmjoaukqeaj42 [degF]Yanet Pacheco MD Work Phone: 1(802)[address] [place], [place] 9231102-25-2025 11:21-0500 Body rvzsef11.8 kgYanet Pacheco MD Work Phone: 1(694)[address] [place], [place] 9231102-25-2025 11:21-0500 Diastolic blood amoparmp51 mm[Hg]Yanet Pacheco MD Work Phone: 1(549)7-[address] [place], [place] 2178302-25-2025 11:21-0500 Heart rate90 /Manoj Pacheco MD Work Phone: 1(490)2-[address] [place], [place] 2178302-25-2025 11:21-0500 Respiratory rate18 /Manoj Pacheco MD Work Phone: 1(152)6-[address] [place], [place] 2178302-25-2025 11:21-0500 SaO2% (BldA) [Mass fraction]97 %Yanet Pacheco MD Work Phone: 1(350)502-[address] [place], [place] 2178302-25-2025 11:21-0500 Systolic blood tzyxxapp757 mm[Hg]Yanet Pacheco MD Work Phone: 1(686)1-[address] [place], [place] 2178301-21-2025 08:33-0500 Body mass index (BMI) [Ratio]31.84 kg/m2IgnccTalon Tilley DO Work Phone: [facility] CenterVdlwqdcjbc60-77-0653 08:33-0500Body zzguac48.57 kgCorey Treva DO Work Phone: [facility] Dsauxlspvo69-08-9015 08:33-0500Diastolic blood lnmmbegw16 mm[Hg]Talon Treva DO Work Phone: [facility] Jarhafpidv52-34-7361 08:33-0500Systolic blood rzrcwnuy804 mm[Hg]Talon Bellao DO Work Phone: [facility] Encounters Encounter DateEncounter TypeCare ProviderFacilityStart: 03-26-2025 End: 14-04-6825Nqhqwd follow up visit related to original luz mariajose Islas MD Work Phone: [facility] PH[facility]IANS NEUROSURGERYComment on above:S/P PLATER HELPER shunt (Primary Dx)Start: 03-26-2025 End: 93-68-4984cfqqnouirlFVAKUGood Samaritan Regional [facility] Center Ambulatory PPGStart: 02-28-2025 End: 74-74-8248Jckcfo follow up visit related to original pxPnsc Neurosurgery NurseProMedica Physicians NeuroSurgeryComment on above:S/P PLATER HELPER shunt (Primary Dx); Malfunction of ventriculoperitoneal shunt, subsequent encounterStart: 02-28-2025 [facility] Ambulatory PPGStart: 02-13-2025 End: 64-27-5375Qdoicleihx and management of inpatientLuke Gena Nolasco MD Work Phone: [facility] - GEN 8 ICUComment on above: Hydrocephalus, unspecified type (CMS-HCC) (Primary Dx); Shunt malfunction, initial encounter; Acute post-operative painStart: 39-47-0158wwudaryubjZYDVMPCInland Northwest Behavioral Health Ambulatory PPGStart: 01-16-2025 End: 43-32-9847nsqmnfjrzwFuedltgProvidence Mount [facility] Work Phone: [facility] Work Phone: Start: 01-16-2025 End: 24-92-9014Wmptnab encounter Floridalma Child APRN-FPG Neurology Zoie Work Phone: Start: 12-08-2024 End: 25-69-5860Gkdfph follow up visit related to original Debra Ojeda MD Work Phone: [facility] HospitalComment on above: Neurofibroma of thorax (Primary Dx)Start: 12-08-2024 End: 00-98-8624Eevrhycykx hospital visit by physicianEly X-Ray 1[facility] CenterComment on above:Mediastinal massStart: 12-08-2024 End: 50-78-8863nvrpjoihnrXUIMGDDAultman Alliance [facility] Hospital Start: 11-20-2024 End: 77-49-4214Xlushvwwdo and management of inpatientHarsha Ojeda MD Work Phone: [facility] Comment on above:Neurofibroma of thorax (Primary Dx); Acute postoperative painStart: 39-16-0567Cpbpfvpsnt and management of inpatient KYLIEParma Community General Hospitaltart: 11-02-2024 End: 67-01-6815fuqytqxbajVTFQXQTLancaster Municipal Hospitaltart: 10-23-2024 End: 21-38-8755Gbbfwl outpatient visit 40 minutesAlanna Pennington MD Work Phone: uh [facility] CenterComment on above:Melanoma of back (Multi)Start: 10-23-2024 End: 38-29-6446zobqbbzhafVPVI Y SHENMercy Health Fairfield Hospitaltart: 10-13-2024 End: 39-27-4933phlesidndqJSYJWLDRiverside Methodist Hospital Start: 10-09-2024 End: 56-37-0738Wcvpivatht hospital visit by physicianCmc Ct 3[facility] Forensic CenterComment on above:Melanoma of back (Multi)Start: 10-09-2024 End: 68-14-1824euutxyrhfyDGXWUDDMarietta Osteopathic Clinictart: 10-04-2024 End: 66-95-1043Nhhpch outpatient visit 40 minutesAlanna Pennington MD Work Phone: [facility] CenterComment on above:Melanoma of back (Multi) (Primary Dx)Start: 10-04-2024 End: 03-77-2569wcjlfkhhdbQKNDCleveland Clinic Fairview Hospitaltart: 09-29-2024 End: 31-80-6378Yumbpa outpatient visit 40 minutesAlanna Pennington MD Work Phone: [facility] CenterComment on above:Melanoma of back (Multi)Start: 09-29-2024 End: 04-85-8528gpqfsdwgnkLHSTCleveland Clinic Fairview Hospitaltart: 09-26-2024 End: 87-73-2690Mkstocyrqg hospital visit by physicianSouth[facility] Lwhc8228 [facility] HospitalComment on above:Melanoma of back (Multi)Arrived Start: 09-26-2024 End: 90-56-2158gvboczbizdJOTICleveland Clinic Fairview Hospitaltart: 09-06-2024 End: 07-30-4078Kgchiq outpatient new 60 minutesAlanna Pennington MD Work Phone: [facility] CenterComment on above:Melanoma of back (Multi)Start: 09-06-2024 End: 57-69-3318ntdoddsmiiLFJVCleveland Clinic Fairview Hospitaltart: 08-29-2024 End: 23-74-4171Fkgeao follow up visit related to original Lindsey Pacheco MD Work Phone: [facility] CenterComment on above:Melanoma of back (Multi) (Primary Dx)Start: 08-29-2024 End: 36-12-6085miivwjprphASHRGRISelect Medical OhioHealth Rehabilitation Hospitaltart: 08-07-2024 End: 01-63-4444gieifjbbvzAPVVPDIAdams County Regional Medical Centertart: 08-07-2024 End: 37-31-4444Snqsiswwpf hospital visit by physician[address] StreetComment on above:ArrivedMelanoma of back (Multi)Start: 08-07-2024 End: 43-04-5024Qpopgraqta hospital visit by Eric Pacheco MD Work Phone: uh [facility] ORComment on above:Melanoma of back (Multi) (Primary Dx)Start: 47-45-8946chhckuzcrfFZWMBZGAdams County Regional Medical Centertart: 07-18-2024 End: 55-71-3627Jcwgxi outpatient new 45 minutesYanet Pacheco MD Work Phone: uh [facility] CenterComment on above:Melanoma of back (Multi) (Primary Dx)Start: 07-18-2024 End: 83-44-3911lndlvvgdcgDEYBRGSSelect Medical OhioHealth Rehabilitation Hospitaltart: 06-13-2024 End: 71-51-7012Luqroa flowsheetCorey Treva DO Work Phone: [facility] BCP OBStart: 06-13-2024 End: 23-09-7485Svscjp flowsheetCorey Treva DO Work Phone: [facility] BCP OBStart: 06-13-2024 End: 54-81-3136Dodqrctme Result EncounterCorey Treva DO Work Phone: noms External Department UnsolicitedStart: 06-13-2024 End: 06-91-3177Hhiriaf encounter procedureCorey Treva DO Work Phone: noms HealthcareStart: 06-13-2024 End: 97-32-2373Jzsibtfu preventive med est patient 40-64yrsCorey Treva DO Work Phone: [facility] BCP OBComment on above:Well woman exam with routine gynecological examStart: 06-13-2024 End: 54-08-6861xwjsleysbhLMGJB FAZIONot AvailableStart: 05-31-2024 End: 12-32-1886Vibtgwetw Result EncounterVonnie BRISENO Work Phone: noms External Department UnsolicitedStart: 05-31-2024 End: 10-64-9120Ixjxbosjr Result EncounterVonnie BRISENO Work Phone: noms External Department UnsolicitedStart: 11-03-2023 End: 83-33-0584thwvlxzqofWJTUWE LOWENot AvailableStart: 05-19-2023 End: 37-64-2101Bvpbcvoir Result EncounterVonnie BRISENO Work Phone: noms External Department UnsolicitedStart: 05-19-2023 End: 58-37-2330Gbfmdegne Result EncounterVonnie BRISENO Work Phone: noms External Department UnsolicitedStart: 01-18-2023 End: 79-20-8393klnlbkoqusPsdgqhh L ValarianFacility:[facility] Daytontart: 01-18-2023 End: 68-10-3641swgnzkbfuwQM Charles L Valone Work Phone: [facility] Work Phone: Start: 01-18-2023 End: 56-74-5649Kmgjily encounter procedureJR Monroe Whitaker Work Phone: [facility]-[address] Work Phone: Start: 77-26-8019sfpdimedguJIEHBOI VALONEFacility:JULISA [facility] - Dublintart: 05-06-2022 End: 52-81-5313whkhbihwjfET DELGADO BINGHAMFacility:Q1Lbqkt: 04-28-2022 End: 93-29-3291tozlsseushHU DELGADO BINGHAMFacility:N4Mxhen: 57-61-7451Pwjeomatt for general adult medical examination without abnormal findingsDR MONROE Butler [facility] Hospitaltart: 04-03-2022 End: 13-13-9878ayyszipiiwOT MONROE WHITAKERFacility:P6Wpehh: 04-03-2022 End: 00-57-0733Bqtfgaufk for general adult medical examination without abnormal findingsDR MONROE WHITAKERFacility:U5Gmrdn: 12-09-2021 End: 28-84-8524atsyrczbzmRZXO LACOURFacility:Z0Veuyj: 10-08-2021 End: 28-86-3057Tklgnbc encounter procedureMD Emmanuel Laughlin Work Phone: [facility]-Lab Str[address] RdStart: 09-30-2021 End: 25-29-6608Bmwijyx encounter procedureMD Emmanuel Laughlin Work Phone: [facility]-X[address] Procedures DateProcedureProcedure DetailPerforming ClinicianStart: 50-57-9876Poyhzk-up visitFollow-Demetrius PLAZAIStart: 72-58-6197Xqaxy metabolic panel calcium total Margarita S Uzelac PA-C Work Phone: Start: 58-36-9766Xr head/brain w/o contrast material Alex BRISENO Work Phone: Start: 25-60-4861Azxtl depression screening assessment Pns NurseStart: 10-50-1701DOIICCG GLUCOSEAhjose Islas MD Work Phone: Start: 60-39-2363Qaksb metabolic panel calcium total Margarita S Uzelac PA-C Work Phone: Start: 02-13-2025 End: 49-68-3803Cidnoa/revj csf shunt valve/cath shunt Tamika Islas MD Work Phone: Start: 23-33-1738WPDO Shamir Nolasco MD Work Phone: Start: 27-43-6014LTSQEKMP Shamir Nolasco MD Work Phone: Start: 24-11-1531TJT Shamir Nolasco MD Work Phone: Start: 41-05-3494RQJRSLK Rodney Nolasco MD Work Phone: Start: 16-99-3414Qmfjrnghhz examination skull 4/> viewsElizabeth S Uzelac PA-C Work Phone: Start: 18-81-2763Orasxrxcax exam chest single view Partha Rocha [facility] Work Phone: Start: 75-12-8716Dhmajgzdex exam chest single view Arielle Shah [facility] Work Phone: Start: 65-54-3107Hjuti metabolic panel calcium total Arielle Shah [facility] Work Phone: Start: 86-19-0956CLUMZ OXIMETRY, SPOTRakirsten Shah [facility] Work Phone: Start: 39-85-2612Mra routine ecg w/least 12 lds trcg only w/o i&rRachececilio Shah [facility] Work Phone: Start: 16-64-8032CIMBL OXIMETRY, SPOTRachel Cecilio Shah [facility] Work Phone: Start: 05-90-2199Vhtmdzdkgo exam chest single view Arielle Shah [facility] Work Phone: Start: 42-83-6508TKJJK OXIMETRY, CONTINUOUSVictoria Suhail Hodges MD Work Phone: Start: 76-97-4422Imprc typing serologic rh (d)Harsha Ojeda MD Work Phone: Start: 45-40-6765Vzz brain brain stem w/o w/contrast materialIrijhoana Pennington MD Work Phone: start: 31-41-8699Jzq imaging for ct attenuation whole bodyAlanna Pennington MD Work Phone: start: 24-06-2871Vlt routine ecg w/least 12 lds trcg only w/o i&rRregina Pacheco MD Work Phone: Start: 80-68-1217Odepqwbhjk & lymph nodes imaging Yanet Pacheco MD Work Phone: Start: 34-34-6068DYQ,APTIMA HPV,AGE GDLNCorey Treva DO Work Phone: Start: 32-59-9912Vrdukptoelw observation [Identifier] in Cervix by Cyto Miguelito Pacheco MD Work Phone: Start: 85-54-8614HK TOMOSYNTHESIS SCREENING Edouard BRISENO Work Phone: Start: 59-88-7662PrduudutqfaHlcar Treva DO Work Phone: Start: 15-10-4767Lmkcgsregfr observation [Identifier] in Cervix by Cyto stainCorey Treva DO Work Phone: Start: 92-42-7783Lktw cerv/vag auto thin layer prep mnl screenCorey Sharewire DO Work Phone: Start: 53-85-5582WN TOMOSYNTHESIS SCREENING Edouard BRISENO Work Phone: Start: 12-98-2504UkgxclmzsnvPeiapbr Hoehn MD Work Phone: Start: 30-12-2435Pfkwi chest X-rayMD Emmanuel Laughlin Work Phone: Plan of Treatment DateCare ActivityDetailAuthorStart: 64-69-5376NYdG,Tdap and Td Vaccines (2 - Td or Tdap)DTaP,Tdap and Td Vaccines (2 - Td or Tdap)[facility] SystemStart: 86-30-5027WJdF/Tdap/Td Vaccines (2 - Td or Tdap)DTaP/Tdap/Td Vaccines (2 - Td or Tdap)[facility]Start: 20-24-9070Pdqtaz Vaccines (1 of 2) Zoster Vaccines (1 of 2)[facility] HospitalStart: 06-09-2028 Screening for malignant neoplasm of cervixNOMS HealthcareStart: 11-22-2027 Diabetes mellitus screeningDiabetes ScreeningUnUniversity Hospitals Samaritan Medical [facility] Start: 31-05-9807Sujrmctex for malignant neoplasm of cervixUnUniversity Hospitals Samaritan Medical CenterStart: 67-32-1609Rydhr BMI ScreeningAdult BMI ScreeningProMedica Health SystemStart: 96-38-0800Rkwmx BMI ScreeningAdult BMI ScreeningProFlower Hospital SystemStart: 15-62-8062Zhpuxvcmmg ScreeningDepression ScreeningProFlower Hospital SystemStart: 76-92-0033Nvvdvkb ScreeningTobacco ScreeningProFlower Hospital SystemStart: 06-18-2025 End: 60-50-6859Mubiqiq encounter procedureNOMS BCP OBStart: 01-57-1677Zbycrc Adult PhysicalYearly Adult PhysicalUnUniversity Hospitals Samaritan Medical CenterStart: 46-57-2288Yaxdrquxc for malignant neoplasm of breastMaogramCrossroads Regional Medical Center Start: 04-24-2025 End: 80-03-0168Mcflyxtyab [Mass/volume] in Serum or PlasmaCreatinine Lab Routine Melanoma of back (Multi) Expected: 04/24/2025 (Approximate), Expires: [address] [place] [address] Service Area Work Phone: comment on above:Expected: 04/24/2025 (Approximate), Expires: 10/23/2025Start: 04-24-2025 End: 39-44-1496TA Chest and Abdomen and Pelvis W contrast IVCT chest abdomen pelvis w IV contrast Imaging Routine Melanoma of back (Multi) Expected: 04/24/2025, Expires: 10/23/2025[facility] Work Phone: Comment on above:Expected: 04/24/2025, Expires: 10/23/2025Start: 03-26-2025 End: 98-36-8314Nprugoe encounter cyaighxnw39/03/2025 1:30 PM EST Office Visit [facility] [address] [facility] [address] [place] [address] Edward Islas MD [address] [facility] [address] [place] [address] [facility] Start: 02-28-2025 End: 84-43-7978Nbcfzgazl to same day surgery tfuvzh6302/28/2025 11:30 AM EDT Support Visit [facility] [address] [place] [address] [phone] Physicians NeuroSurgeryStart: 62-51-2019RVYGK-19 Vaccine ( season)COVID-19 Vaccine ( season)[facility] IPICO SystemStart: 10-33-6069Dswljpexh vaccinationMartins Ferry HospitalStart: 12-08-2024 End: 92-90-4016Kuyaejd encounter xbnqhsuzx41/18/2025 11:30 AM EDT Office Visit [facility] [address] [address] [place] [address] [place] [address] [facility]art: 11-06-2024 End: 30-21-2726Ljupzwnpr to same day surgery qyovrt9811/06/2024 7:05 AM EDT - 11/06/2024 9:55 AM EDT Surgery [facility] OR [address] [place] [address] [place] [address] [place] [address] Robotic assisted posteiror mediastinal mass resection - left chest [01262 (CPT )][facility] ORComment on above:Robotic assisted posteiror mediastinal mass resection - left chest [65323 (CPT )]Start: 02-01-9578Ujfiwtnnes hospital visit by jcpcalrkv72/16/2025 7:05 AM EDT Hospital Encounter [facility] OR [address] [place] [address] [place] [address] [address] [place], [place] [address] [facility] ORStart: 11-06-2024 End: 31-00-2965Qfjuygahmwjm w/exc mediastinal cyst tumor/massEXCISION, TISSUE, MEDIASTINUM, ROBOT-ASSISTED Neurofibroma of thorax 11/06/2024 7:05 AM EDTVirtual DUANE ORStart: 11-01-2024 End: 07-57-9619Gjuejvy encounter zlmtnhwvu98/11/2025 9:00 AM EDT Office Visit [facility] [address] [place] [address] Maria Rice PA [address] [place] [address] [facility] SEYMOURtart: 10-23-2024 End: 77-24-8162Napksqkfdffc consultation with ijkkrnv6310/23/2024 4:40 PM EDT Telemedicine [facility] [address] [facility] 2nd [place] [address] [place] [address] [place] [address] [facility]: 10-13-2024 End: 28-28-2512Jxxfkit encounter fllnvyret95/23/2025 1:45 PM EDT Office Visit [facility] [address] [facility] [address] [place] [address] [place] [address] [place] [address] [facility]art: 10-04-2024 End: 68-16-6893Rmjlyyknjsnt consultation with patientClovis Baptist Hospitaltart: 10-04-2024 End: 23-45-0948Cjhiuzg to Interventional RadiologyConsult to Interventional Radiology Imaging STAT Melanoma of back (Multi) Expected: 10/04/2024, Expires: 10/04/2025[facility] Service Area Work Phone: comment on above:Expected: 10/04/2024, Expires: 10/04/2025Start: 09-06-2024 End: 60-54-3145AC Brain WO and W contrast IVMR brain w and wo IV contrast Imaging Routine Melanoma of back (Multi) Expected: 09/06/2024, Expires: 09/06/2025[facility] Work Phone: Comment on above:Expected: 09/06/2024, Expires: 09/06/2025Start: 09-06-2024 End: 11-10-5082TU Whole body Bone ViewsNM PET CT whole body Imaging Routine Melanoma of back (Multi) Expected: 09/06/2024, Expires: 09/06/2025[facility] Service Area Work Phone: comment on above:Expected: 09/06/2024, Expires: 09/06/2025Start: 57-55-6968Jkpmfsukfr hospital visit by wiuxcgnuj87/17/2025 Hospital Encounter [facility] [place] [address] [place] [address], [place] [address] [place] [address] [address] Department of SurgeryMar[place], [place] [address] [facility] ORStart: 07-18-2024 End: 08-62-2337HO Lymphatic vessels Views W radionuclide intra lymphaticNM lymphoscintigram Imaging Routine Melanoma of back (Multi) Expected: 07/18/2024, Expires: 07/18/2025[facility] Service Area Work Phone: Comment on above:Expected: 07/18/2024, Expires: 07/18/2025Start: 06-13-2024 End: 29-54-8601Hcfdsxp encounter vkwrxbsdu09/21/2025 8:30 AM EST Office Visit [facility] [address] [place] [address] Talon Tilley DO [address] [place], [place] [id number] ArrivedNOMS BCP OBComment on above:ArrivedStart: 47-81-1025GTVSS-19 Vaccine ( season)COVID-19 Vaccine ( season)[facility]: 95-17-5115XUJVO-19 Vaccine ( season)COVID-19 Vaccine ( season)[facility]: 34-88-3614Jnrunjimm vaccinationInfluenza Vaccine (#1)[facility] HealthcareStart: 87-91-4183Dxgrkgiwd for malignant neoplasm of breastMammogram [facility]: 23-61-4056Cjtpnptxc for malignant neoplasm of cervixHPV/CotestUnAshtabula County Medical Center: 1997 Hepatitis B Vaccines (1 of 3 - 19+ 3-dose series)Hepatitis B Vaccines (1 of 3 - 19+ 3-dose series)[facility]: 43-05-5774Kjiby BMI Follow Up PlanAdult BMI Follow Up PlanFirstHealthtart: 1996 Diabetes mellitus screeningDiabetes ScreeningMartins Ferry Hospital Start: 67-79-1758Wocrnhrdu C screeningHepatitis C ScreeningUnAshtabula County Medical Center: 42-20-6865XQJ Vaccines (1 of 1 - Standard series)MMR Vaccines (1 of 1 - Standard series)[facility]: 02-11-1981 Examination of skinDerm Melanoma Skin CheckMartins Ferry Hospital Start: 57-78-9601HJE screeningHIV ScreeningMartins Ferry Hospital Start: 70-78-0012Cdclb panelLipid PanelUnAshtabula County Medical Center: 84-45-0436Tkwsahktl for malignant neoplasm of colonNOMS HealthcareStart: 82-05-3644Yirp Cancer ScreeningSkin Cancer ScreeningAdena Regional Medical Center: 90-03-2425Iiwelo Adult PhysicalYearly Adult PhysicalUnUniversity Hospitals Samaritan Medical CenterAldolase measurementFirBlanchard Valley Health System Ctr Work Phone: aPTT.lupus sensitive (LA screen)[facility] Work Phone: aPTT.lupus sensitive W excess phospholipid actual/Normal (normalized LA confirm)[facility] Work Phone: aPTT.lupus sensitive/aPTT.lupus sensitive W excess phospholipid (screen to confirm [facility] Work Phone: End: [id number] metabolic 2000 panel - Serum or PlasmaBasic metabolic panel Lab Routine Morning draw (Lab) for 5 Occurrences starting 11/21/2024 until 09/2024, [facility]: Comment on above:Morning draw (Lab) for 5 Occurrences starting 11/21/2024 until 11/25/2024, 1 completedBx/exc lymph node open deep axillary nodeBIOPSY, LYMPH NODE, AXILLARY Melanoma of back (Multi)[facility] End: [id number] panel - Blood by Automated countCBC Lab Routine Morning draw (Lab) for 5 Occurrences starting 11/21/2024 until 11/25/2024, 1 completed [facility] Work Phone: Comment on above:Morning draw (Lab) for 5 Occurrences starting 11/21/2024 until 11/25/2024, 1 completed End: [id number] ( test) [Presence] in UrinePOCT , urine Point of Care Testing Routine Once (Lab) for 1 Occurrences starting 08/07/2024 until 08/07/2024[facility] Service Area Work Phone: Comment on above:Once (Lab) for 1 Occurrences starting 08/07/2024 until 08/07/2024hromatin Ab [Units/volume] in Serum or Plasma [facility] Work Phone: Complement C3 [Mass/volume] in Serum or Plasma [facility] Work Phone: Complement C4 [Mass/volume] in Serum or Plasma [facility] Work Phone: End: 63-91-5399Yjutgelvuu Pulse oximetry, In Phase 1Continuous Pulse oximetry, In Phase 1 Respiratory Care Routine Continuous until discontinued starting 08/07/2024[facility] Service Area Work Phone: Comment on above:Continuous until discontinued starting 08/07/2024 End: 10-21-5647QP Guidance for biopsy of MediastinumUNM [facility] Service Area Work Phone: comment on above:Once for 1 Occurrences starting 10/09/2024 until 10/09/2024Dermatopathology- DERM LABDermatopathology- DERM LAB Pathology and Cytology Routine Melanoma of back (Multi) Release Upon Ordering for 1 Occurrences starting 08/07/2024[facility] Work Phone: Comment on above:Release Upon Ordering for 1 Occurrences starting 08/07/2024dRVVT (LA screen)[facility] Work Phone: Electrocardiogram, 12-leadElectrocardiogram, 12-lead ECG Routine 08/07/2024 9:36 AM EDTMartins [facility]erry Hospital Work Phone: Excision tumor soft tis back/flank subq 3 cm/> EXCISION, LESION, BACK Melanoma of back (Multi)Virtual DUANE ORHemolytic complement CH50 levelAkron Children'S Hospital Ctr Work Phone: Homogenous nuclear Ab pattern [Titer] in Serum [facility] Work Phone: End: 24-88-9513Clwrhopoa spirometryIncentive spirometry Respiratory Care Routine Once for 1 Occurrences starting 11/20/2024 until 11/20/2024[facility] Work Phone: Comment on above:Once for 1 Occurrences starting 11/20/2024 until 11/20/2024Lupus anticoagulant [Interpretation] in Platelet poor plasmaAkron Children'S Hospital Ctr Work Phone: End: 44-33-7597Lgcyxbojn [Mass/volume] in Serum or PlasmaMagnesium Lab Routine Morning draw (Lab) for 5 Occurrences starting 11/21/2024 until 11/25/2024, 1 c ompletedUniOhio[facility] Work Phone: Comment on above:Morning draw (Lab) for 5 Occurrences starting 11/21/2024 until 11/25/2024, 1 completedMyoglobin [Mass/volume] in Serum or PlasmaAkron [facility] Work Phone: Nuclear Ab [Titer] in SerumAkron Children'S Hospital [facility] Work Phone: End: 24-72-7907Jghwblo RBC: 2 UnitsPrepare RBC: 2 Units Blood Bank Routine Once for 1 Occurrences starting 11/20/2024 until 11/20/2024[facility] Service Area Work Phone: Comment on above:Once for 1 Occurrences starting 11/20/2024 until 11/20/2024Pulse oximetry, spotPulse oximetry, spot Respiratory Care Routine Every 4 hours until discontinued starting 11/20/2024,7 completed [facility] Work Phone: Comdkwu on above:Every 4 hours until discontinued starting 11/20/2024, 7 completedReagin Ab [Presence] in Serum by [facility] Work Phone: Surgical pathology studySurgical Pathology Exam Pathology and Cytology Routine Melanoma of back (Multi) Release Upon Ordering for 1 Occurrences starting 08/07/2024[facility] Work Phone: Comment on above:Release Upon Ordering for 1 Occurrences starting 08/07/2024 End: 10-63-4665Blhvudkh pathology studySurgical Pathology Exam Pathology and Cytology Routine Once (Lab) for 1 Occurrences starting 10/09/2024 until 10/09/2024[facility] Work Phone: Comsass on above:Once (Lab) for 1 Occurrences starting 10/09/2024 until 10/09/2024[facility] Work Phone: Comment on above:Release Upon Ordering for 1 Occurrences starting 11/20/2024, 1 completedTHIN PREP TIS PAP AND HR HPV DNATHIN PREP TIS PAP AND HR HPV DNA Pathology and Cytology Routine Well woman exam with routine gynecological exam Ordered: 06/13/2024[facility] Work Phone: comment on above:Ordered: 06/13/2024[facility] Work Phone: Thyroglobulin Ab [Units/volume] in Serum or Plasma [facility] Work Phone: Thyroperoxidase Ab [Units/volume] in Serum or Plasma [facility] Work Phone: End: 68-59-2054YZ Chest 2 ViewsUN[facility] Service Area Work Phone: Comment on above:Once for 1 Occurrences starting 12/08/2024 until 12/08/2024 End: 63-88-3455TS Chest Single viewXR chest 1 view Imaging Routine Daily for 5 Occurrences starting 11/21/2024 until 11/25/2024, 1 [facility] Work Phone: Comment on above:Daily for 5 Occurrences starting 11/21/2024 until 11/25/2024, 1 completed Immunizations Immunization DateImmunizationNotesCare AtqjfrjmJeouselt48-47-3349twfhanxbr, injectable, quadrivalent, preservative Dave Islas MD Work Phone: [facility]ambwa30-70-0556kstfwbaxu virus vaccine, unspecified formulationCorey Treva DO Work Phone: [facility] CenterSrurfpxtxw21-03-8211vwnarcw toxoid, reduced diphtheria toxoid, and acellular pertussis vaccine, adsorbedAhjose Islas MD Work Phone: [facility] Payers DatePayer CategoryPayerPolicy [id number] [id number] Cross Blue ShieldBCBS [id number] Community Hospital CareANTHEM [facility] 1.2.840.576020.1.13.647.2.7.9.158721.343382.65014-43-4935NqzwAtmore Community Hospital Care - OtherANTHEM 1.2.840.535339.1.13.424.2.7.9.222287.[id number] 2..1.859288.3.579.[id number] 2..1.525087.3.579.2.91082-83-3954Ehwnoqt5688627 2..1.364445.3.579.2.37901-85-2117Mchqrvl3493576 2..1.284318.3.579.2.27178-28-0458Kwrzqci1636542 2..1.557169.3.579.2.131410-00-9161Erhxjsu6048309 2.16.840.1.171481.3.579.2.824171-92-4942Qtheylq166835244 2.0.1.758670.3.579.2.100939-94-4367Dplyuwk659003624 2.840.1.729466.3.579.2.695598-83-7775Tuzemkd268023359 2.0.1.329128.3.579.2.153191-48-1182Aocazyu358341202 2.0.1.537549.3.579.2.381584-72-0931Efpsysn344061984 2..1.290623.3.579.2.545874-33-0942Qxflvli835878460 2.0.1.632642.3.579.2.777796-80-8285Mkrynes252187539 2..1.754255.3.579.2.676715-16-5920Gwkzlry837495164 2..1.374970.3.579.2.618226-26-7239Iorlugb247298636 2..1.930765.3.579.2.169461-11-4682Drhrmcv592856321 2..1.468491.3.579.2.610259-46-6395Wkbpyab004619900 2.0.1.146965.3.579.2.032140-96-5975Nmsyjmf97856973 2..1.908584.3.579.2.287967-12-4458Sqojoue58843116 2.840.1.331804.3.579.2.444893-57-4172Yqsuylx02082500 2.840.1.308182.3.579.2.476284-51-9329Hxdlpsf18683598 2.840.1.904731.3.579.2.360189-69-5946Yysiadw48669826 2..840.1.773341.3.579.2.902306-76-0114Myshkpz48797130 2.840.1.019857.3.579.2.796278-69-4895Xergbvo45127384 2..840.1.540743.3.579.2.945605-45-1694Onslnmw36636761 2.0.1.449858.3.579.2.270700-46-1621Eglwzjm522771218 2.0.1.857296.3.579.2.848651-95-7399Woabwlx197417164 2.0.1.157401.3.579.2.377754-98-9557Gbpltqs783635811 2.0.1.467969.3.579.2.750808-22-9629Rfyldhp130931447 2.0.1.126604.3.579.2.879632-43-4604XvbdasaN52171648 3531fz4w-8zl3-30yh-g0x9-6j6q202u9x0c31-13-6465ScyifsrQRV307E00528LqlhiurAegfjn BC/WH05u03162-5qv3-3707-m5g1-p101785n410lDuvzqmh76646381 2.0.1.699908.3.579.2.531 Social History DateTypeDetailFacilityTobacco smoking status NHISUnknown if ever smokedHarrison Community Hospital Work Phone: Start: 83-09-2260Vms Assigned At BirthFeAkron Children's Hospitaltart: 06-07-2023 End: 08-07-5690Nqausns smoking status NHISNever smoked tobaccoNOFL Healthcare Start: 11-03-2023 End: 81-72-4433Pqzxlfpty beverage intakeCurrent drinker of alcohol (finding)NOM HealthcareStart: 11-02-2023 End: 24-65-7270Sqbboek of Social functionNOFL HealthcareStart: 11-02-2023 End: 66-06-5682Stbgsys Use Disorder Identification Test - Consumption [AUDIT-C] NOM HealthcareHow often to you have a drink containing alcohol?2-4 times a monthNOMS HealthcareHow many standard drinks containing alcohol do you have on a typical day?1 or 2NOMS HealthcareHow often do you have 6 or more drinks on 1 occasion?NeverNOFL HealthcareStart: 49-92-7619Mjo assigned at birthNot on file [facility] HealthcareStart: 07-18-2024 End: 70-02-4383Xxxefnh use and exposureSmokeless tobacco non-userMartins Ferry Hospital Work Phone: Start: 07-08-2024 End: 20-82-9554Pspusoca to SARS-CoV-2 (event)Not sureUnUniversity Hospitals Samaritan Medical CenterStart: 60-98-1156Wpejzgm Commentdepends on the week's plansMartins Ferry Hospital Work Phone: Start: 08-19-2024 End: 93-25-8865Cfsqzfsn to SARS-CoV-2 (event)Unable to assessMartins Ferry HospitalHa the [employer], gas, oil, or water company threatened to shut off services in your home in past 12WedoUnUniversity Hospitals Samaritan Medical Center Are you now , , , , never or living with a partner?MarriedUnUniversity Hospitals Samaritan Medical Center Work Phone: How often to you have a drink containing alcohol?2-3 time sa weekMartins Ferry Hospital Work Phone: Start: 08-05-2022 End: 84-94-3491Ani hard is it for you to pay for the very basics like food, housing, medical care, and heatingNot hard at allMartins Ferry Hospital Work Phone: Do you feel stress - tense, restless, nervous, or anxious, or unable to sleep at night because yourmind is troubled all the time - these days [OSQ]To some extentMartins Ferry Hospital Work Phone: (I/We) worried whether (my/our) food would run out before (I/we) got money to buy more.Never trueUnUniversity Hospitals Samaritan Medical Center Work Phone: Start: 11-20-2024 End: 45-18-9177Dhfoliogs beverage intakeEx-drinker (finding)[facility] Work Phone: Start: 72-90-9976NslDujcih (finding)[facility] Daytontart: 81-93-8986Ftfycoc CommentoccasionalProMedica Health System Tobacco smoking status NHISTobacco smoking consumption unknownNOMS Healthcare Medical Equipment Procedure CodeEquipment CodeEquipment Original TextEquipment IdentifierDates Valve Shnt V Lo Prss Sm Csf Strl - [id number]: 02-13-2025 Goals DatePatient GoalDesired Activity/StatePersonal health goal Functional Status WrxxPjbsnbeapsRljnseIymfuvkb95-45-5511Ocezw score [AUDIT-C]2 02/14/2025 10:32 AM EDT CruzKassandra cummings [facility]07-18-2025Patient Health Questionnaire 2 item (PHQ-2) [Reported][facility] Work Phone: 1(169) 280-386606606776-45-4124Wdimh score [AUDIT-C]2 11/20/2024 12:18 PM EDT Melissa Barber RNUnUniversity Hospitals Samaritan Medical Center Work Phone: [phone] 495-958206620891-69-4427Aifpgxi Health Questionnaire 2 item (PHQ-2) [Reported][facility] Work Phone: [phone]) [phone]ieutoaa - suicide severity rating scale screener - recent [C-SSRS][facility] Work Phone: [phone] 186-287104621431-74-3460WAM-3 quick depression assessment panel [Reported.PHQ][facility] Work Phone: [phone]) [phone]zvn score [AUDIT-C]3 09/06/2024 10:14 AM EDT Francheska Hayden RNUnUniversity Hospitals Samaritan Medical Center Work Phone: [phone]) 180-791504-950291-21-4478Mocamusuovg, Afraid, Rape, and Kick questionnaire [HARK][facility] Work Phone: [phone]Osuzali Health Questionnaire 2 item (PHQ-2) [Reported][facility] Work Phone: [phone]) [phone]vpkzla - suicide severity rating scale screener - recent [C-SSRS][facility] Work Phone: [phone]) [phone]xzu score [AUDIT-C]2 11/02/2023 10:10 PM EDT Kourtney Bender [facility] Work Phone: UnUniversity Hospitals Samaritan Medical Center Work Phone: [facility] Clinical Notes 12-10-2021 to 03-26-2025 Note Date & IjpwHtrpTpsryebb01-56-0385 History of Present illness Narrative* Edward Islas MD - 03/26/2025 1:30 PM EST Images from the original note were not included. [facility] [address] [place] [address], [address] [place] [address] * CHART NOTE ? 03/26/2025 Patient: Shawna Grigsby 1980 [id number] Physician: Edward Islas MD, FAANS SUMMARY 6 weeks status post revision of her ventriculoperitoneal shunt completed on 02/13/25. She is doing well post operatively. PLAN She will follow up as needed. I have instructed the patient to contact my office if any new questions, concerns, or symptoms develop. HISTORY OF PRESENT ILLNESS Shawna Grigsby is a 44 y.o. female who presents to the clinic today for post-operative evaluation of the revision of her ventriculoperitoneal shunt completed on 02/13/25. Today, she reports that she has been doing well following her shunt revision. Patient denies any drainage or discharge from the incision site. HEALTH HISTORY Past Medical History Documented in chart and reviewed with the patient at this visit Family History Documented in chart and reviewed with the patient at this visit Social History Documented in chart and reviewed with the patient at this visit Surgeries/Hospitalizations Documented in chart and reviewed with the patient at this visit Current Medications Current Outpatient Medications on File Prior to Visit Medication Sig Dispense Refill ascorbic acid, vitamin C, (VITAMIN C) 1000 mg tablet Take 1 tablet (1,000 mg total) by mouth in themorning and 1 tablet (1,000 mg total) before bedtime. 1 TABLET ORALLY ONCE A DAY. azelastine-fluticasone (DYMISTA) 137-50 mcg/spray spray,non-aerosol Administer 1 spray into each nostril in the morning. B-complex with vitamin C tablet Take 1 tablet by mouth in the morning. biotin 5,000 mcg tablet,chewable Chew 1 tablet and swallow in the morning. cetirizine (ZyrTEC) 10 MG chewable tablet Chew 1 tablet (10 mg total) and swallow. cholecalciferol, vitamin D3, 2,000 units capsule Take 1 capsule (2,000 Units total) by mouth in themorning. cyanocobalamin (vitamin B-12) 500 MCG tablet Take 1 tablet (500 mcg total) by mouth in the morning. DULoxetine (CYMBALTA) 60 mg capsule Take 1 capsule (60 mg total) by mouth in the morning. estradioL (ESTRACE) 1 mg tablet Take 1 tablet (1 mg total) by mouth in the morning. famciclovir (FAMVIR) 500 mg tablet Take 1 tablet (500 mg total) by mouth in the morning. famotidine (PEPCID) 40 mg tablet Take 1 tablet (40 mg total) by mouth in the morning. linaCLOtide (LINZESS) 72 mcg capsule Take 1 capsule (72 mcg total) by mouth every morning before breakfast. magnesium oxide 400 mg magnesium tablet Take 400 mg by mouth in the morning. montelukast (SINGULAIR) 10 mg tablet Take 1 tablet (10 mg total) by mouth nightly. mv-min/iron/folic/calcium/vitK (WOMEN'S MULTIVITAMIN ORAL) Take 1 tablet by mouth in the morning. naloxone (NARCAN) 4 mg/actuation spray,non-aerosol nasal spray Administer 1 spray (4 mg total) intoalternating nostrils as needed for opioid reversal. 1 each 0 psyllium seed, with sugar, (FIBER ORAL) Take 1 tablet by mouth in the morning. rosuvastatin (CRESTOR) 5 mg tablet Take 1 tablet (5 mg total) by mouth in the morning. semaglutide, weight loss, (WEGOVY) 0.25 mg/0.5 mL pen injector Inject 0.5 mL (0.25 mg total) under the skin every 7 days. sennosides-docusate sodium (SENOKOT-S) 8.6-50 mg Take 1 tablet by mouth in the morning and 1 tabletbefore bedtime. vitamin E, dl,tocopheryl acet, (vitamin E, dl, acetate,) 180 mg (400 unit) capsule Take 1 capsule (400 Units total) by mouth in the morning. No current facility-administered medications on file prior to visit. Allergies No Known Allergies REVIEW OF SYSTEMS A complete and comprehensive 10-system review was completed. Pertinent positives and negatives are mentioned in the history of the present illness. PHYSICAL EXAMINATION Awake and oriented x3. Speech and language function is normal. Memory, recent and remote, is intact. Neurologically intact. Gait is intact. Posture is normal. ROM of the cervical spine is normal. Incision is healing well with no drainage or erythema. DIAGNOSTICS No new imaging was provided today. I personally interpreted the imaging studies independently and critical findings were anotated for the patient. Sincerely, Electronically signed by: Edward Islas MD, FAANS Scribed for and in the presence of Edward Islas MD by Fausto Reed (scribe). This note was created with the assistance of a speech recognition program with the goal of generating a timely record of the patient encounter. Inadvertent computerized bookseamer blindstitch errors related to syntax, spelling, homophones, and/or inaudibility may be present. Fausto Reed 03/26/25 1323 documented in this encounterNewark Hospital11-03-2025 Instructions* Patient Instructions* Ailyn De La Torre CMA - 03/26/2025 1:30 PM EST prn documented in this encounterNewark Hospital10-08-2025 History of Present illness Narrative* Latasha Garcia - 02/28/2025 11:30 AM EDT [facility] [address] [address] Suture/Staple Removal/Wound Date: February 28, 2025 Patient: Shawna Grigsby Physician: Dr. Islas Procedure: REVISION VENTRICULOPERITONEAL SHUNT Past Surgical History: Procedure Laterality Date HYSTERECTOMY REVISION VENTRICULOPERITONEAL SHUNT N/A 02/13/2025 Performed by Edward Islas MD at [facility] VENTRICULOPERITONEAL SHUNT Date of Procedure: 02/13/25 Reason for Appointment: suture removal Post-Op Fever?: No Incisional Drainage?: No Skin Edges Approximated?: Yes Unusual Redness?: No Unusual Swelling?: No Sutures/[place] Removed?: Yes Steri Strips Applied?: No Use of Pain Medication: Tylenol as needed Effective for Pain Relief?: Yes Comments: Shawna ambulates to the room with a steady gait. She is accompanied by her significant other. She states, I have been feeling pretty good. I have had a couple of headaches since surgery, but they went away after taking Tylenol. She denies any visual changes, balance issues or head pressure. The posterior head incision is clean,dry and well approximated. The sutures were removed without difficulty. Incision hygiene was discussed with patient verbalizing understanding. The abdominal incision is clean,dry and well approximated with minimal surgical glue remaining. Shawna leaves [facility] paperwork to be filled out. states, I noticed last evening when she was talking with someone thatshe repeated herself several times. Is this normal? SUZANNA Hunter was consulted. Orders were received to continue to monitor symptoms and call the office if there are any changes. was advised to call the office if verbal repetition continues. states, I will continue to monitor andcall with concerns. Shawna will follow up as scheduled. She was advised to call the office with any questions or concerns. Current Concerns with Incision or Symptoms?: no Patient educated on how to properly request future pain medication refills as well as the need to always read the directions on their medication bottle because the direction on how to take the medication may change with every refill. Neurosurgery will not provide early refills for prescriptions that are lost, stolen or not taken as prescribed. It is best to reposition often to reduce the amount of pressure on the incision. documented in this encounterNewark Hospital09-24-2025 Hospital course Narrative* Margarita Ortiz PA-C - 02/14/2025 2:47 PM EDT Images from the original note were not included. [facility] [address] [place] [address], [address] [place] [address] * NEUROSURGERY DISCHARGE SUMMARY Patient: Shawna Grigsby Date of : 1980 Acct: [id number] Primary Care Physician: MONROE WHITAKER JR, DO Admit date: 02/13/2025 02/13/2025 10:39 AM Discharge date: No discharge date for patient encounter. Discharge Diagnoses: Shunt malfunction Principal Problem: Shunt malfunction Active Problems: Gastroesophageal reflux disease without esophagitis Hyperlipidemia Irritable bowel syndrome Neurofibromatosis ([facility]) Discharge Medications: Medication List START taking these medications Instructions Last Dose Given Next Dose Due acetaminophen 500 mg tablet Commonly known as: TYLENOL EXTRA STRENGTH Take 2 tablets (1,000 mg total) by mouth once for 1 dose. HYDROcodone-acetaminophen 5-325 mg per tablet Commonly known as: NORCO Take 1-2 tablets by mouth every 6 (six) hours as needed for pain for up to 7 days. Max Daily Amount: 8 tablets naloxone 4 mg/actuation spray,non-aerosol nasal spray Commonly known as: NARCAN Administer 1 spray (4 mg total) into alternating nostrils as needed for opioid reversal. sennosides-docusate sodium 8.6-50 mg Commonly known as: SENOKOT-S Take 1 tablet by mouth in the morning and 1 tablet before bedtime. CONTINUE taking these medications Instructions Last Dose Given Next Dose Due ascorbic acid (vitamin C) 1000 mg tablet Commonly known as: VITAMIN C Take 1 tablet (1,000 mg total) by mouth in the morning and 1 tablet (1,000 mg total) before bedtime. 1 TABLET ORALLY ONCE A DAY. azelastine-fluticasone 137-50 mcg/spray spray,non-aerosol Commonly known as: DYMISTA Administer 1 spray into each nostril in the morning. B-complex with vitamin C tablet Take 1 tablet by mouth in the morning. biotin 5,000 mcg tablet,chewable Chew 1 tablet and swallow in the morning. cetirizine 10 MG chewable tablet Commonly known as: ZyrTEC Chew 1 tablet (10 mg total) and swallow. cholecalciferol (vitamin D3) 2,000 units capsule Take 1 capsule (2,000 Units total) by mouth in the morning. DULoxetine 60 mg capsule Commonly known as: CYMBALTA Take 1 capsule (60 mg total) by mouth in the morning. estradioL 1 mg tablet Commonly known as: ESTRACE Take 1 tablet (1 mg total) by mouth in the morning. famciclovir 500 mg tablet Commonly known as: FAMVIR Take 1 tablet (500 mg total) by mouth in the morning. famotidine 40 mg tablet Commonly known as: PEPCID Take 1 tablet (40 mg total) by mouth in the morning. FIBER ORAL Take 1 tablet by mouth in the morning. linaCLOtide 72 mcg capsule Commonly known as: LINZESS Take 1 capsule (72 mcg total) by mouth every morning before breakfast. magnesium oxide 400 mg magnesium tablet Take 400 mg by mouth in the morning. montelukast 10 mg tablet Commonly known as: SINGULAIR Take 1 tablet (10 mg total) by mouth nightly. rosuvastatin 5 mg tablet Commonly known as: CRESTOR Take 1 tablet (5 mg total) by mouth in the morning. vitamin B-12 500 MCG tablet Generic drug: cyanocobalamin Take 1 tablet (500 mcg total) by mouth in the morning. vitamin E (dl, acetate) 180 mg (400 unit) capsule Take 1 capsule (400 Units total) by mouth in the morning. WEGOVY 0.25 mg/0.5 mL pen injector Generic drug: semaglutide (weight loss) Inject 0.5 mL (0.25 mg total) under the skin every 7 days. WOMEN'S MULTIVITAMIN ORAL Take 1 tablet by mouth in the morning. Where to Get Your Medications These medications were sent to [facility]/pharmacy #[id number] [address] HYDROcodone-acetaminophen 5-325 mg per tablet naloxone 4 mg/actuation spray,non-aerosol nasal spray You can get these medications from any pharmacy You don't need a prescription for these medications acetaminophen 500 mg tablet sennosides-docusate sodium 8.6-50 mg Diet: Adult diet Regular Texture Activity: As tolerated per discharge instructions Follow-up: Follow up as scheduled with Dr. Islas Consultants: non Procedures: 1.Removal of old PLATER HELPER shunt right occipital to peritoneum 2. Placement of a new right occipital PLATER HELPER shunt with [employer] low-pressure valve without siphon guard Diagnostic Test: CT brain Interval placement of new shunt from a right parietal approach with some new intracranial and intraventricular air. Shunt terminates within the right lateral ventricle. Small amount of hemorrhage within the right occipital horn Ventricles remain prominent but have definitely diminished in volume compared to prior study No midline shift. Connell-white matter differentiation is preserved. Transependymal migration of CSF improving. Physical Exam: No acute distress Awake and Alert Respirations even and unlabored Abdomen soft and nontender Regular heart rate and rhythm PERRL BUE/BLE strength and sensation intact Incision: Well approximated with suture. No surrounding erythema, edema, or drainage. Hospital Course: clinical course has improved. 44 year old female with history of hydrocephalus s/p PLATER HELPER shunt placed as child and admitted due to AMS and concern for shunt malfunction. She underwent surgery for shunt revision and symptoms improved. Pt seen and evaluated on morning rounds. Awake, alert and oriented with clear appropriate speech. Pre-op symptoms are improved after surgery. Surgical pain is well controlled with oral pain medications. Pt is eating, drinking and voiding without difficulty with + flatus. Ambulating in halls with steady gait. Surgical incision well approximated and intact with suture, no incisional concerns. Criteria for discharge has been met. Verbal discharge instructions reviewed, all questions have been answered. Pt verbalized understanding. OARRS report has been reviewed and appropriate. Written dischargeinstructions and a prescription for [place] for pain control will be provided at the time of discharge. Pt will be discharged to home later today with no needs. Follow up appointment is in place and appointment details have been reviewed. Disposition: home Condition: stable Margarita Ortiz PA-C The patient has been started on an opiate pain medication for a condition that is expected to last longer than seven days. Alternatives to opiate medication have been considered and discussed with the patient and it has been agreed upon that opiates are needed in this case. This initial prescription for this problem has been written for 7 days. The reasons for opiate painmedication therapy in this case is acute postoperative pain. The risks versus benefits of opiate therapy, and extended opiate therapy have been discussed with the patient and have been deemed acceptable and clinically appropriate. Margarita Oritz PA-C Neurosurgery [facility] Patient Touch 02/14/25 2:47 PM Margarita Ortiz PA-C 02/14/25 [id number] documented [facility] Hospital Discharge instructions* Discharge Instructions* Margarita Ortiz PA-C - 02/14/2025 2:36 PM EDT Neurosurgery Discharge Instructions Special Medication Instructions: No Aspirin, Anti-Platelet agents or other blood thinning medications unless instructed by your surgeon No alcohol. Pain Medication You will likely be prescribed narcotic pain medication to help with your pain after your surgery. Narcotics are addictive drugs and their use will be restricted. These will be prescribed for a short term period. Do not drive or operate other potentially dangerous machinery, power tools, or household implements, while taking narcotic medication. Please be aware all medication refill requests must be called to our office during the week. No medications will be refilled after hours or on the weekends. Narcotic medications for pain and other controlled substances require a physician authorization and signature which can take 2-3 days to obtain. Do not wait until you are out of your medication to request a refill. Continue stool softeners while taking narcotic pain medication. Add laxatives as needed *If you are prescribed narcotics at discharge, you will also likely be prescribed a medication called Narcan too, to be used in case of accidental narcotic overdose. To combat the Opioid epidemic, Itis a requirement and best practice too prescribe Narcan when prescribing narcotics. It is recommended to fill this medication; however you may choose to not fill this prescription if desired and you accept the risks. Do not take the Narcan unless there is concern for overdose. Activities: No driving until cleared by your doctor May shower, no tub baths or swimming for 14 days No lifting greater than 5-10lbs Avoid strenuous activity Take short walks during the day as tolerated Stairs as tolerated, take your time Notify Doctor if you notice: Increased pain Redness, swelling, bleeding or drainage from incision Temperature 101 degrees or above Confusion, changes in your speech or vision Numbness, tingling or decreased strength different than before your surgery or new since your surgery. In case of emergency, call 911 immediately! If 911 is not available, call your local emergency medical system for help. Wound Care: Shower daily 2 days following surgery, washing incision with a gentle (baby) shampoo Do not apply creams or ointments to your incision Call [facility] Neurosurgery with any questions, . * Attachments The following attachments cannot be sent through Care Everywhere. * Managing acute pain at home ([place]) documented in this encounterNew[facility]09-[facility]25 Plan of care note * Plan of Care - Alyssa Marshall RN - 02/14/2025 7:42 AM EDT Problem: Safety Goal: Patient will be injury free during hospitalization Description: INTERVENTIONS: 1. Assess patient's risk for falls and implement fall prevention plan of care per policy 2. Provide and maintain a safe environment 3. Proper use of double Identifiers 4. Medication administration using the 5 rights 5. Hand hygiene 6. Specimens are labeled at the bedside 7. Instruct patient/ patient contracts representative about use of safety devices 8. Include patient/ patient contracts representative in decisions related to safety Outcome: Progressing Note: Evaluation of progress towards goal: Patient safety maintained, call light in reach, area clear of hazards, hourly rounding continued, bed locked in lowest position, alarm on as applicable, nonskid socks on, safety educated completed with patient/family, no injuries noted at this time. Problem: Infection Goal: Absence of infection during hospitalization Description: INTERVENTIONS 1. Assess and monitor for signs and symptoms of infection. 2. Monitor lab/diagnostic results. 3. Monitor all insertion sites i.e., indwelling lines, tubes and drains. 4. Monitor endotracheal (as able) and nasal secretions for changes in amount and color. 5. Administer medications as ordered. 6. Instruct and encourage patient and family to use good hand hygiene technique. 7. Identify and instruct patient/patient contracts representative in use of appropriate isolation precautionsfor identified infection/symptoms. 8. Provide and discuss with patient/patient contracts representative on educational MDRO sheet. 9. Encourage and monitor nutritional status daily and consult roller varnisher if indicated. 10. Implement neutropenic guidelines as needed. Outcome: Progressing Note: Evaluation of progress towards goal: Medications administered as ordered, labs monitored. No signs of infection at this time. Continue to monitor. Problem: Discharge Planning Goal: Discharge to post-acute care, other facility, or home with appropriate resources Description: Patient's goal is: INTERVENTIONS 1. Conduct assessment to determine patient/family and health care team treatment goals, and need for post-acute services based on payer coverage, community resources, and patient preferences, and barriers to discharge 2. Coordinate with Social work, Care Navigation, and Utilization Review to arrange appropriate level of services according to patient's needs based on patient preference and payer coverage in collaboration with the physician and health care team 3. Address psychosocial, clinical, and financial barriers to discharge as identified in assessment in conjunction with the patient/family and health care team 4. Consult appropriate ancillary services (i.e.. PT/OT/ST, etc) as needed 5. Communicate with and update the patient/family, physician, and health care team regarding progress on the discharge plan 6. Identify discharge learning needs (meds, wound care, etc). 7. Arrange for needed discharge transportation as appropriate Outcome: Progressing Note: Evaluation of progress towards goal: Possible discharge today pending activity and pain tolerance. Problem: Moderate - High Risk Fall Score Description: Adan Fall Score of =/> 25 or indicated by [facility] Assessment Goal: Patient should be free from fall Description: Interventions: 1. [place] to environment 2. Hourly rounds addressing the 4 P's (Pain, Positioning, Possessions, Potty) 3. Clear area of hazards (spills, clutter, electrical cords, unnecessary equipment) 4. Place equipment (bed & TV controls, call light, phone, urinal) within reach 5. Encourage patient to wear glasses and hearing aides as appropriate 6. Maintain bed in lowest position 7. Lock wheels on bed/wheelchair 8. Provide adequate lighting, including night light 9. Assess need for additional bedding, food/fluids, pain med's prior to sleep/routinely 10. Provide gripper slippers or personal non-skid footwear 11. Teach patient and patient contracts representative to maintain environment for safety and engage in all aspects of fall prevention program 12. Remind patient to call for help before getting out of bed 13. Initiate bed/chair/exit alarms supportive devices as appropriate, (chair wedge, no-skid floor mat, raised edge mattress, hip protectors) 14. Locate patient bed assignment for optimal visualization 15. Evaluate and identify Safe Patient Handling Equipment needs 16. Provide supervision when out of bed or chair 17. Utilize gait belt as needed to assist with ambulation 18. Place adaptive equipment (cane, walker) within reach 19. Request patient contracts representative bring adaptive equipment/mobility aids from home or obtain and provide as needed 20. Consult pharmacy regarding effects of med's affecting mobility, cognition, and alternatives 21. Obtain physician order for PT if risk factors associated with mobility are present 22. Obtain physician order for OT as appropriate 23. Utilize diversional activities 24. Educate patient and patient contracts representative how to maintain a safe environment during visitationtimes (notify nurse prior to leaving bedside) 25. Consider appropriateness of medical or non-medical delivery technician 26. Set up voiding schedule as appropriate (every 2 hours) Outcome: Progressing Note: Evaluation of progress towards goal: Fall risk assessment preformed and safety measures in place. Education given to family/patient. Will continue to monitor. [facility] Miscellaneous Notes* Plan of Care - Alyssa Marshall RN - 02/14/2025 7:42 AM EDT Problem: Safety Goal: Patient will be injury free during hospitalization Description: INTERVENTIONS: 1. Assess patient's risk for falls and implement fall prevention plan of care per policy 2. Provide and maintain a safe environment 3. Proper use of double Identifiers 4. Medication administration using the 5 rights 5. Hand hygiene 6. Specimens are labeled at the bedside 7. Instruct patient/ patient contracts representative about use of safety devices 8. Include patient/ patient contracts representative in decisions related to safety Outcome: Progressing Note: Evaluation of progress towards goal: Patient safety maintained, call light in reach, area clear of hazards, hourly rounding continued, bed locked in lowest position, alarm on as applicable, nonskid socks on, safety educated completed with patient/family, no injuries noted at this time. Problem: Infection Goal: Absence of infection during hospitalization Description: INTERVENTIONS 1. Assess and monitor for signs and symptoms of infection. 2. Monitor lab/diagnostic results. 3. Monitor all insertion sites i.e., indwelling lines, tubes and drains. 4. Monitor endotracheal (as able) and nasal secretions for changes in amount and color. 5. Administer medications as ordered. 6. Instruct and encourage patient and family to use good hand hygiene technique. 7. Identify and instruct patient/patient contracts representative in use of appropriate isolation precautionsfor identified infection/symptoms. 8. Provide and discuss with patient/patient contracts representative on educational MDRO sheet. 9. Encourage and monitor nutritional status daily and consult roller varnisher if indicated. 10. Implement neutropenic guidelines as needed. Outcome: Progressing Note: Evaluation of progress towards goal: Medications administered as ordered, labs monitored. No signs of infection at this time. Continue to monitor. Problem: Discharge Planning Goal: Discharge to post-acute care, other facility, or home with appropriate resources Description: Patient's goal is: INTERVENTIONS 1. Conduct assessment to determine patient/family and health care team treatment goals, and need for post-acute services based on payer coverage, community resources, and patient preferences, and barriers to discharge 2. Coordinate with Social work, Care Navigation, and Utilization Review to arrange appropriate level of services according to patient's needs based on patient preference and payer coverage in collaboration with the physician and health care team 3. Address psychosocial, clinical, and financial barriers to discharge as identified in assessment in conjunction with the patient/family and health care team 4. Consult appropriate ancillary services (i.e.. PT/OT/ST, etc) as needed 5. Communicate with and update the patient/family, physician, and health care team regarding progress on the discharge plan 6. Identify discharge learning needs (meds, wound care, etc). 7. Arrange for needed discharge transportation as appropriate Outcome: Progressing Note: Evaluation of progress towards goal: Possible discharge today pending activity and pain tolerance. Problem: Moderate - High Risk Fall Score Description: Adan Fall Score of =/> 25 or indicated by [facility] Assessment Goal: Patient should be free from fall Description: Interventions: 1. [place] to environment 2. Hourly rounds addressing the 4 P's (Pain, Positioning, Possessions, Potty) 3. Clear area of hazards (spills, clutter, electrical cords, unnecessary equipment) 4. Place equipment (bed & TV controls, call light, phone, urinal) within reach 5. Encourage patient to wear glasses and hearing aides as appropriate 6. Maintain bed in lowest position 7. Lock wheels on bed/wheelchair 8. Provide adequate lighting, including night light 9. Assess need for additional bedding, food/fluids, pain med's prior to sleep/routinely 10. Provide gripper slippers or personal non-skid footwear 11. Teach patient and patient contracts representative to maintain environment for safety and engage in all aspects of fall prevention program 12. Remind patient to call for help before getting out of bed 13. Initiate bed/chair/exit alarms supportive devices as appropriate, (chair wedge, no-skid floor mat, raised edge mattress, hip protectors) 14. Locate patient bed assignment for optimal visualization 15. Evaluate and identify Safe Patient Handling Equipment needs 16. Provide supervision when out of bed or chair 17. Utilize gait belt as needed to assist with ambulation 18. Place adaptive equipment (cane, walker) within reach 19. Request patient contracts representative bring adaptive equipment/mobility aids from home or obtain and provide as needed 20. Consult pharmacy regarding effects of med's affecting mobility, cognition, and alternatives 21. Obtain physician order for PT if risk factors associated with mobility are present 22. Obtain physician order for OT as appropriate 23. Utilize diversional activities 24. Educate patient and patient contracts representative how to maintain a safe environment during visitationtimes (notify nurse prior to leaving bedside) 25. Consider appropriateness of medical or non-medical delivery technician 26. Set up voiding schedule as appropriate (every 2 hours) Outcome: Progressing Note: Evaluation of progress towards goal: Fall risk assessment preformed and safety measures in place. Education given to family/patient. Will continue to monitor. * Plan of Care - Karthik Velazquez RN - 02/14/2025 12:31 AM EDT Problem: Pain Goal: Patient goal is pain score less than 4, able to rest, and participant in treatment plan as appropriate Description: INTERVENTIONS: 1. Encourage patient or legal contracts representative to report early pain and ask for pain medicine when needed 2. Assess pain using appropriate pain scale and include the scale used when documenting 3. Administer analgesics based on type and severity of pain and evaluate response within appropriate time frame 4. Implement non-pharmacological measures as appropriate and evaluate response 5. Consider cultural and social influences on pain and pain management 6. Notify LIP if interventions ineffective or patient reports new pain 7. Monitor vital signs including pulse ox, end-tidal CO2 based on pain intervention 8. Reassess pain per policy 9. Teach patient or legal contracts representative interventions for comforting Outcome: Progressing Problem: Moderate - High Risk Fall Score Description: Adan Fall Score of =/> 25 or indicated by [facility] Assessment Goal: Patient should be free from fall Description: Interventions: 1. [place] to environment 2. Hourly rounds addressing the 4 P's (Pain, Positioning, Possessions, Potty) 3. Clear area of hazards (spills, clutter, electrical cords, unnecessary equipment) 4. Place equipment (bed & TV controls, call light, phone, urinal) within reach 5. Encourage patient to wear glasses and hearing aides as appropriate 6. Maintain bed in lowest position 7. Lock wheels on bed/wheelchair 8. Provide adequate lighting, including night light 9. Assess need for additional bedding, food/fluids, pain med's prior to sleep/routinely 10. Provide gripper slippers or personal non-skid footwear 11. Teach patient and patient contracts representative to maintain environment for safety and engage in all aspects of fall prevention program 12. Remind patient to call for help before getting out of bed 13. Initiate bed/chair/exit alarms supportive devices as appropriate, (chair wedge, no-skid floor mat, raised edge mattress, hip protectors) 14. Locate patient bed assignment for optimal visualization 15. Evaluate and identify Safe Patient Handling Equipment needs 16. Provide supervision when out of bed or chair 17. Utilize gait belt as needed to assist with ambulation 18. Place adaptive equipment (cane, walker) within reach 19. Request patient contracts representative bring adaptive equipment/mobility aids from home or obtain and provide as needed 20. Consult pharmacy regarding effects of med's affecting mobility, cognition, and alternatives 21. Obtain physician order for PT if risk factors associated with mobility are present 22. Obtain physician order for OT as appropriate 23. Utilize diversional activities 24. Educate patient and patient contracts representative how to maintain a safe environment during visitationtimes (notify nurse prior to leaving bedside) 25. Consider appropriateness of medical or non-medical delivery technician 26. Set up voiding schedule as appropriate (every 2 hours) Outcome: Progressing Problem: Knowledge Deficit Goal: Patient/patient contracts representative demonstrates understanding of disease process, treatment plan,medications, and discharge instructions Description: INTERVENTIONS 1. Complete learning assessment and assess knowledge base 2. Provide teaching at level of understanding 3. Provide teaching via preferred learning method(s) Outcome: Adequate for Discharge * Op Note - Edward Islas MD - 02/13/2025 3:11 PM EDT NAME: Shawna Grigsby : 1980 PROCEDURE DATE: 02/13/2025 Surgeon: Surgeons and Role: * Edward Islas MD - Primary Assistants: GUILHERME Hunter Staff: Spray Gun Striper Primary: Maritza Quintana RN Spray Gun Striper Relief: Cely Lee RN Scrub Person: ST Tanika Feliciano Assistant PA: SUZANNA Michelle Pre-op Diagnosis: ventricular peritoneal SHUNT MALFUNCTION Post-op Diagnosis: proximal obstruction, distal shunt fracture Procedure Details: 1.Removal of old PLATER HELPER shunt right occipital to peritoneum 2. Placement of a new right occipital PLATER HELPER shunt with Medtronic low-pressure valve without siphon guard Anesthesia Type: General * No Diagnosis Codes entered * Complications: none Additions (Drains, Specimens, Implants): Drains: * No LDAs found * Specimens: * No specimens in log * Implants: Implant Name Type Inv. Item Serial No. Test Administrator Lot No. [id number] No. Used Action VALVE SHNT V LO PRSS SM CSF STRL - [id number] Other Implant VALVE SHNT V LO PRSS SM CSF STRL [employer] [id number] Right 1 Implanted Estimated Blood Loss: 5 cc Total IV Fluids: Intravenous fluids were administered by anesthesia Condition: good Indications: 44-year-old lady with prior history of suboccipital craniotomy as well as a right occipital to PLATER HELPER shunt in the who presents with symptoms and signs consistent with shunt malfunction and CT shunt dilated ventricles as well as shunt series shows fractured catheter in the neck area. Procedure details: Following induction of anesthesia and intubation, a roll was placed under the right shoulder and the head was turned to the left and placed on a horseshoe headrest attached to the Leary apparatus.Right-sided occipital area, neck, chest, abdomen were then clipped, prepped, draped in usual manner. Previous occipital and abdominal incisions were then infiltrated with 1% lidocaine and epinephrine. Initially the occipital incision was opened and silverio hole design valve reservoir was then from the distal catheter and there was clearly sluggish flow proximally. This was then replaced with a new Bactiseal ventricular catheter to a depth of 7-1/2 cm under moderate pressure and 4 mg of tobramycin and 2 cc was instilled into the ventricle. The distal catheter was then removed partially from the cranial incision. The abdominal incision was then opened down to the anterior rectus sheathand the posterior with 2 sheath were opened in 1 layer in the midline previous catheter was easily identified by finger palpation and removed from the peritoneal cavity. The low-pressure Medtronic valve without siphon guard was then attached to Bactiseal peritoneal catheter and passed from superiorto inferior using shunt Passer. The proximal valve was then connected to the ventricular catheter using 3-0 silk tie and then secured to the periosteum with 3-0 Vicryl interrupted suture. Distal catheter was functioning well. The distal catheter was then placed into the peritoneum under direct vision. Peritoneum and posterior rectus sheath were then closed in single layer of 3-0 Vicryl running suture. Subcutaneous tissue was closed with 3-0 Vicryl interrupted sutures. Subcuticular closure was done with 3-0 Vicryl interrupted sutures. Skin was closed with 4-0 Monocryl in running fashion. Exofin was applied to the abdominal incision. The cranial incision was closed with 3-0 Vicryl interruptedsutures for galea and 4-0 Prolene in a running interlocking fashion for skin. I must add a portion of the old catheter which was calcified in the chest area was not pursued for removal. Dressings were applied to the both incisions. Patient was then awakened, extubated, taken to recovery room in good and stable condition. Physician photographer assistant was present throughout the entire case. [facility] this [facility] Plan of care note * Plan of Care - Karthik Velazquez RN - 02/14/2025 12:31 AM EDT Problem: Pain Goal: Patient goal is pain score less than 4, able to rest, and participant in treatment plan as appropriate Description: INTERVENTIONS: 1. Encourage patient or legal contracts representative to report early pain and ask for pain medicine when needed 2. Assess pain using appropriate pain scale and include the scale used when documenting 3. Administer analgesics based on type and severity of pain and evaluate response within appropriate time frame 4. Implement non-pharmacological measures as appropriate and evaluate response 5. Consider cultural and social influences on pain and pain management 6. Notify LIP if interventions ineffective or patient reports new pain 7. Monitor vital signs including pulse ox, end-tidal CO2 based on pain intervention 8. Reassess pain per policy 9. Teach patient or legal contracts representative interventions for comforting Outcome: Progressing Problem: Moderate - High Risk Fall Score Description: Adan Fall Score of =/> 25 or indicated by [facility] Assessment Goal: Patient should be free from fall Description: Interventions: 1. [place] to environment 2. Hourly rounds addressing the 4 P's (Pain, Positioning, Possessions, Potty) 3. Clear area of hazards (spills, clutter, electrical cords, unnecessary equipment) 4. Place equipment (bed & TV controls, call light, phone, urinal) within reach 5. Encourage patient to wear glasses and hearing aides as appropriate 6. Maintain bed in lowest position 7. Lock wheels on bed/wheelchair 8. Provide adequate lighting, including night light 9. Assess need for additional bedding, food/fluids, pain med's prior to sleep/routinely 10. Provide gripper slippers or personal non-skid footwear 11. Teach patient and patient contracts representative to maintain environment for safety and engage in all aspects of fall prevention program 12. Remind patient to call for help before getting out of bed 13. Initiate bed/chair/exit alarms supportive devices as appropriate, (chair wedge, no-skid floor mat, raised edge mattress, hip protectors) 14. Locate patient bed assignment for optimal visualization 15. Evaluate and identify Safe Patient Handling Equipment needs 16. Provide supervision when out of bed or chair 17. Utilize gait belt as needed to assist with ambulation 18. Place adaptive equipment (cane, walker) within reach 19. Request patient contracts representative bring adaptive equipment/mobility aids from home or obtain and provide as needed 20. Consult pharmacy regarding effects of med's affecting mobility, cognition, and alternatives 21. Obtain physician order for PT if risk factors associated with mobility are present 22. Obtain physician order for OT as appropriate 23. Utilize diversional activities 24. Educate patient and patient contracts representative how to maintain a safe environment during visitationtimes (notify nurse prior to leaving bedside) 25. Consider appropriateness of medical or non-medical delivery technician 26. Set up voiding schedule as appropriate (every 2 hours) Outcome: Progressing Problem: Knowledge Deficit Goal: Patient/patient contracts representative demonstrates understanding of disease process, treatment plan,medications, and discharge instructions Description: INTERVENTIONS 1. Complete learning assessment and assess knowledge base 2. Provide teaching at level of understanding 3. Provide teaching via preferred learning method(s) Outcome: Adequate for Discharge [facility]09-23-2025 Procedure note* Op Note - Edward Islas MD - 02/13/2025 3:11 PM EDT NAME: Shawna Grigsby : 1980 PROCEDURE DATE: 02/13/2025 Surgeon: Surgeons and Role: * Edward Islas MD - Primary Assistants: GUILHERME Hunter Staff: Spray Gun Striper Primary: Maritza Quintana RN Spray Gun Striper Relief: Cely Lee RN Scrub Person: ST Jodie Coil Connector PA: SUZANNA Michelle Pre-op Diagnosis: ventricular peritoneal SHUNT MALFUNCTION Post-op Diagnosis: proximal obstruction, distal shunt fracture Procedure Details: 1.Removal of old PLATER HELPER shunt right occipital to peritoneum 2. Placement of a new right occipital PLATER HELPER shunt with Medtronic low-pressure valve without siphon guard Anesthesia Type: General * No Diagnosis Codes entered * Complications: none Additions (Drains, Specimens, Implants): Drains: * No LDAs found * Specimens: * No specimens in log * Implants: Implant Name Type Inv. Item Serial No. Test Administrator Lot No. LRB No. Used Action VALVE SHNT V LO PRSS SM CSF STRL - [id number] Other Implant VALVE SHNT V LO PRSS SM CSF STRL [employer] [id number] Right 1 Implanted Estimated Blood Loss: 5 cc Total IV Fluids: Intravenous fluids were administered by anesthesia Condition: good Indications: 44-year-old lady with prior history of suboccipital craniotomy as well as a right occipital to PLATER HELPER shunt in the who presents with symptoms and signs consistent with shunt malfunction and CT shunt dilated ventricles as well as shunt series shows fractured catheter in the neck area. Procedure details: Following induction of anesthesia and intubation, a roll was placed under the right shoulder and the head was turned to the left and placed on a horseshoe headrest attached to the Leary apparatus.Right-sided occipital area, neck, chest, abdomen were then clipped, prepped, draped in usual manner. Previous occipital and abdominal incisions were then infiltrated with 1% lidocaine and epinephrine. Initially the occipital incision was opened and silverio hole design valve reservoir was then from the distal catheter and there was clearly sluggish flow proximally. This was then replaced with a new Bactiseal ventricular catheter to a depth of 7-1/2 cm under moderate pressure and 4 mg of tobramycin and 2 cc was instilled into the ventricle. The distal catheter was then removed partially from the cranial incision. The abdominal incision was then opened down to the anterior rectus sheathand the posterior with 2 sheath were opened in 1 layer in the midline previous catheter was easily identified by finger palpation and removed from the peritoneal cavity. The low-pressure Medtronic valve without siphon guard was then attached to Bactiseal peritoneal catheter and passed from superiorto inferior using shunt Passer. The proximal valve was then connected to the ventricular catheter using 3-0 silk tie and then secured to the periosteum with 3-0 Vicryl interrupted suture. Distal catheter was functioning well. The distal catheter was then placed into the peritoneum under direct vision. Peritoneum and posterior rectus sheath were then closed in single layer of 3-0 Vicryl running suture. Subcutaneous tissue was closed with 3-0 Vicryl interrupted sutures. Subcuticular closure was done with 3-0 Vicryl interrupted sutures. Skin was closed with 4-0 Monocryl in running fashion. Exofin was applied to the abdominal incision. The cranial incision was closed with 3-0 Vicryl interruptedsutures for galea and 4-0 Prolene in a running interlocking fashion for skin. I must add a portion of the old catheter which was calcified in the chest area was not pursued for removal. Dressings were applied to the both incisions. Patient was then awakened, extubated, taken to recovery room in good and stable condition. Physician photographer assistant was present throughout the entire case. [facility]09-23-2025 History and physical note* Margarita Ortiz PA-C - 02/13/2025 12:41 PM EDT Images from the original note were not included. [facility] [address] [place] [address], [address] [place] [address] * NEUROSURGERY H&P NOTE DATE:02/13/2025 PATIENT'S NAME: Shawna Grigsby PATIENT'S PATIENT'S : 1980 NEUROSURGERY ATTENDING: Dr. Islas REASON FOR ADMISSION Shunt malfunction HISTORY OF PRESENT ILLNESS Shawna Grigsby is a 44 y.o. White or female who presents from and OSH due to shuntmalfunction. Patient with history of hydrocephalus and initially had shunt placement as a teen, in the 1980s. She has had 1 revision around 1997, however patient and family do not recall the surgeon.They report was done here in [place]. Patient has been off and has had headache since yesterday. He also reports patient's mother reported her to be a little bit off the past week or so and more confused. CT imaging was obtained showing concern for shunt malfunction and patient was transfer to [facility]. On arrival patient is awake and alert. She denies headaches. She is easily awakened but is slightlydrowsy. also reports episode of incontinence upon arrival. She is on ASA per Patient also with history of melanoma ALLERGIES No Known Allergies MEDICATIONS Current Facility-Administered Medications: acetaminophen (TYLENOL EXTRA STRENGTH) tablet 1,000 mg, 1,000 mg, oral, Once, Elisha Donovan MD No current outpatient medications on file. PAST MEDICAL AND SURGICAL HISTORY Past Medical History: Diagnosis Date Arthritis Cholelithiasis Gastric ulcer Hydrocephalus (CMS-HCC) Past Surgical History: Procedure Laterality Date HYSTERECTOMY VENTRICULOPERITONEAL SHUNT FAMILY HISTORY History reviewed. No pertinent family history. SOCIAL HISTORY Tobacco: reports that she has never smoked. She has never used smokeless tobacco. Alcohol: reports current alcohol use. Drugs: reports no history of drug use. REVIEW OF SYSTEMS A 14 point review of systems was negative other than that documented in the HPI. PHYSICAL EXAMINATION Temp: [36.7 C (98.1 F)] 36.7 C (98.1 F) Heart Rate: [96-107] 101 Resp: [17-22] 22 BP: (92-116)/(71-96) 92/71 SpO2: [95 %-99 %] 98 % Physical Exam Constitutional: General: She is not in acute distress. Appearance: She is not ill-appearing. Comments: Slightly drowsy HENT: Head: Normocephalic. Right Ear: External ear normal. Left Ear: External ear normal. Mouth/Throat: Mouth: Mucous membranes are moist. Eyes: Extraocular Movements: Extraocular movements intact. Pupils: Pupils are equal, round, and reactive to light. Cardiovascular: Rate and Rhythm: Normal rate. Pulses: Normal pulses. Pulmonary: Effort: Pulmonary effort is normal. No respiratory distress. Abdominal: General: There is no distension. Tenderness: There is no abdominal tenderness. Musculoskeletal: Cervical back: Normal range of motion. Neurological: General: No focal deficit present. Mental Status: She is alert and oriented to person, place, and time. Sensory: No sensory deficit. Motor: No weakness. LABORATORY DATA Cultures: IMAGING No results found. CT IMAGING CT brain- read not in epic ASSESSMENT 44 year old female with history of hydrocephalus s/p PLATER HELPER shunt placed as child and admitted due to AMS and concern for shunt malfunction. PLAN - Imaging, case, and patient evaluated by Dr. Islas. Plan for OR today for shunt exploration/revision. Discussed with patient and spouse regarding plan, and they agreeable to proceed. Consent obtained and placed in chart. - NPO - Medical team consulted for medical management - Shunt series pending - Likely ICU post op Margarita Ortiz PA-C Neurosurgery [facility] EPIC Chat preferred Patient Touch 02/13/25 12:43 PM To find out which [facility] is on for the day please go to ON-Call Finder in [employer] or [employer] and use log in [employer] and search for PTH Neurosurgery Margarita Ortiz PA-C 02/13/25 1253 Margarita Ortiz PA-C 02/13/25 1253 Cosigned by Edward Islas MD at 02/13/2025 2:34 PM EDT [facility]09-23-2025 History and physical note* Margarita Ortiz PA-C - 02/13/2025 12:41 PM EDT Images from the original note were not included. [facility] [address] [place] [address], [address] [place] [address] * NEUROSURGERY H&P NOTE DATE:02/13/2025 PATIENT'S NAME: Shawna Grigsby PATIENT'S PATIENT'S : 1980 NEUROSURGERY ATTENDING: Dr. Islas REASON FOR ADMISSION Shunt malfunction HISTORY OF PRESENT ILLNESS Shawna Grigsby is a 44 y.o. White or female who presents from and OSH due to shuntmalfunction. Patient with history of hydrocephalus and initially had shunt placement as a teen, in the . She has had 1 revision around 1997, however patient and family do not recall the surgeon.They report was done here in [place]. Patient has been off and has had headache since yesterday. He also reports patient's mother reported her to be a little bit off the past week or so and more confused. CT imaging was obtained showing concern for shunt malfunction and patient was transfer to [facility]. On arrival patient is awake and alert. She denies headaches. She is easily awakened but is slightlydrowsy. also reports episode of incontinence upon arrival. She is on ASA per Patient also with history of melanoma ALLERGIES No Known Allergies MEDICATIONS Current Facility-Administered Medications: acetaminophen (TYLENOL EXTRA STRENGTH) tablet 1,000 mg, 1,000 mg, oral, Once, Elisha Donovan MD No current outpatient medications on file. PAST MEDICAL AND SURGICAL HISTORY Past Medical History: Diagnosis Date Arthritis Cholelithiasis Gastric ulcer Hydrocephalus (CMS-HCC) Past Surgical History: Procedure Laterality Date HYSTERECTOMY VENTRICULOPERITONEAL SHUNT FAMILY HISTORY History reviewed. No pertinent family history. SOCIAL HISTORY Tobacco: reports that she has never smoked. She has never used smokeless tobacco. Alcohol: reports current alcohol use. Drugs: reports no history of drug use. REVIEW OF SYSTEMS A 14 point review of systems was negative other than that documented in the HPI. PHYSICAL EXAMINATION Temp: [36.7 C (98.1 F)] 36.7 C (98.1 F) Heart Rate: [96-107] 101 Resp: [17-22] 22 BP: (92-116)/(71-96) 92/71 SpO2: [95 %-99 %] 98 % Physical Exam Constitutional: General: She is not in acute distress. Appearance: She is not ill-appearing. Comments: Slightly drowsy HENT: Head: Normocephalic. Right Ear: External ear normal. Left Ear: External ear normal. Mouth/Throat: Mouth: Mucous membranes are moist. Eyes: Extraocular Movements: Extraocular movements intact. Pupils: Pupils are equal, round, and reactive to light. Cardiovascular: Rate and Rhythm: Normal rate. Pulses: Normal pulses. Pulmonary: Effort: Pulmonary effort is normal. No respiratory distress. Abdominal: General: There is no distension. Tenderness: There is no abdominal tenderness. Musculoskeletal: Cervical back: Normal range of motion. Neurological: General: No focal deficit present. Mental Status: She is alert and oriented to person, place, and time. Sensory: No sensory deficit. Motor: No weakness. LABORATORY DATA Cultures: IMAGING No results found. CT IMAGING CT brain- read not in epic ASSESSMENT 44 year old female with history of hydrocephalus s/p PLATER HELPER shunt placed as child and admitted due to AMS and concern for shunt malfunction. PLAN - Imaging, case, and patient evaluated by Dr. Islas. Plan for OR today for shunt exploration/revision. Discussed with patient and spouse regarding plan, and they agreeable to proceed. Consent obtained and placed in chart. - NPO - Medical team consulted for medical management - Shunt series pending - Likely ICU post op Margarita Ortiz PA-C Neurosurgery [facility] EPIC Chat preferred Patient Touch 02/13/25 12:43 PM To find out which BRUNO is on for the day please go to ON-Call Finder in [employer] or [employer] and use log in [employer] and search for PTH Neurosurgery Margarita Ortiz PA-C 02/13/25 1253 Margarita Ortiz PA-C 02/13/25 1253 Cosigned by Edward Islas MD at 02/13/2025 2:34 PM EDT [facility] Emergency department Triage note* Nasreen Hutton RN - 02/13/2025 10:44 AM EDT Patient to the ed today for altered mental status and for PLATER HELPER shunt malfunction from [place]. Pt was taken to the ed for altered mental status, and increased confusion. Pt is awake and alert and answering questions at this time. Pt complaining of headache. Pt given 15mg toradol HIDE SPREADER [facility]09-23-2025 Emergency department Note* Nasreen Hutton RN - 02/13/2025 10:44 AM EDT Patient to the ed today for altered mental status and for PLATER HELPER shunt malfunction from [place]. Pt was taken to the ed for altered mental status, and increased confusion. Pt is awake and alert and answering questions at this time. Pt complaining of headache. Pt given 15mg toradol HIDE SPREADER * Dawn Suarez RN - 02/13/2025 10:40 AM EDT Bed: 30 Expected date: Expected time: Means of arrival: Other Comments: SUPERIOR 44 yo F Coming from [place] PLATER HELPER shunt malfunction AMS Eyes equal & reactive A&Ox2, not baseline for pt 132/95 HR 98-107 97-99% on RA RR16-20 Pt can self transfer, slowness ETA 10 min documented in this [facility] Emergency department Note* Dawn Suarez RN - 02/13/2025 10:40 AM EDT Bed: 30 Expected date: Expected time: Means of arrival: Other Comments: SUPERIOR 44 yo F Coming from [place] PLATER HELPER shunt malfunction AMS Eyes equal & reactive A&Ox2, not baseline for pt 132/95 HR 98-107 97-99% on RA RR16-20 Pt can self transfer, slowness ETA 10 min [employer] [id number] History of Present illness Narrative* Harsha Ojeda MD - 12/08/2024 11:30 AM EDT Subjective Shawna Grigsby is a 44 y.o. female with a pmhx of HLD, neurofibromatosis, hydrocephalus with PLATER HELPER shunt, and melanoma of the back s/p [...] I will call her when that is back.I recommend follow up in [address] chest for surveillance. Harsha Ojeda MD Thoracic Surgeon [facility] Paediatric Thoracic Physiciancode inspector [facility] [employer] Office phone: Pager: [phone] documented in this [facility] Work Phone: 1(242) 411-759207-01-2025 Plan of care note* Care Plan - Yue Toledo RN - 11/21/2024 12:07 PM EDT The clinical goals for the shift include [...] throughout the shift Outcome: Adequate for Discharge [facility] Work Phone: 1(895) 632-663107-01-2025 Miscellaneous Notes* Care Plan - Yue Toledo RN - 11/21/2024 12:07 PM EDT The clinical goals for the shift include [...] throughout the shift Outcome: Adequate for Discharge * Care Plan - Zoey Lozano RN - 11/21/2024 5:05 AM EDT The patient's goals for the shift include [...] next dressing change Outcome: Progressing Flowsheets (Taken 11/21/2024503) Decreased wound size/increased tissue granulation at next dressing change: Promote sleep for wound healing Protective dressings over bony prominences Utilize specialty bed per algorithm Goal: Participates in plan/prevention/treatment measures Outcome: Progressing Flowsheets (Taken 11/21/2024503) Participates in plan/prevention/treatment measures: Discuss with provider PT/OT consult Elevate heels Increase activity/out of bed for meals Goal: Prevent/manage excess moisture Outcome: Progressing Flowsheets (Taken 11/21/2024503) Prevent/manage excess moisture: Cleanse incontinence/protect with barrier cream Follow provider orders for dressing changes Moisturize dry skin Goal: Prevent/minimize sheer/friction injuries Outcome: Progressing Flowsheets (Taken 11/21/2024503) Prevent/minimize sheer/friction injuries: Complete micro-shifts as needed if patient unable. Adjust patient position to relieve pressure points, not a full turn HOB 30 degrees or less Increase activity/out of bed for meals Turn/reposition every 2 hours/use positioning/transfer devices Use pull sheet Utilize specialty bed per algorithm Goal: Promote/optimize nutrition Outcome: Progressing Flowsheets (Taken 11/21/2024503) Promote/optimize nutrition: Assist with feeding Consume > 50% meals/supplements Discuss with provider if NPO > 2 days Monitor/record intake including meals Offer water/supplements/favorite foods Reassess MST if roller varnisher not consulted Goal: Promote skin healing Outcome: Progressing Flowsheets (Taken 11/21/2024503) Promote skin healing: Assess skin/pad under line(s)/device(s) Ensure correct size (line/device) and apply per air tester instructions Protective dressings over bony prominences Rotate device position/do not position patient on device Turn/reposition every 2 hours/use positioning/transfer devices * Perioperative Nursing Note - Mikala Okeefe RN - 11/20/2024 10:[address] Hodges aware pt. Resting quietly but, when awakened to asked about her pain pt. States pain still [address] Hodges awake of amount of pain meds and OK with pt. Being discharged to SICU at this time. * Op Note - Harsha Ojeda MD - 11/20/2024 8:00 AM EDT Date: 11/20/2024 OR Location: [facility] Name: Shawna Grigsby, : 1980, Age: 44 y.o., , Sex: female Preop Diagnosis: posterior mediastinal mass Postop Diagnosis: posterior mediastinal mass Procedures: Robotic assisted posterior mediastinal mass resection Intercostal nerve block Bronchoscopy Surgeons: Harsha Ojeda MD Resident/Fellow/Other Kitchen Utility Associate: Surgeons and Role: * Tasha Farias PA-C - Assisting Anesthesia: General ASA: III Anesthesia Staff: Anesthesiologist: Joanna Hodges MD APPLICATIONS ENGINEER MANUFACTURING: Rogelio Clifton APRN-APPLICATIONS ENGINEER MANUFACTURING Estimated Blood Loss: 10mL Intra-op Medications: Administrations [...] EXAM Harsha Ojeda MD 11/20/2024 0849 Staff: Spray Gun Striper: Felicity Ruggiero RN Scrub Person: Sherie Tanner; [...] through the double lumen tube. This is minimalsecretions. The bronchoscopy examination was normal, no endobronchial [...] intercostal space anteriorly. The chest was entered througha direct cut down technique without issue and insufflation was started. The patient tolerated it well. The mass was visualized above the aortic arch posterior to left subclavian artery. I then placed2 additional instrument port in the same intercostal [...] I then continued to dissect around the masscircumferentially down to the vertebral body. The mass come off the spine without issue. The intercostal nerve going to the spinal canal was also clipped on the stay side and taken with cautery and th e specimen site. Now the mass was completely dissected off. The macroscopic margin was negative andthe investing sheath surrounding the mass was not violated. Now the mass was retrieved from the field using EndoCatch bag and passed out to pathology. I ensured hemostasis of the dissection bed. I scrubbed back to the bedside. We confirmed hemostasis at the port sites. I left one 28 [place] chest tubes posteriorly. Then the lung was reinflated without issue under visualization. All the ports are closed with 2-0 Vicryl and 3-0 Monocryl. The final counts were correct. Patient was allowed to be awaken from general anesthesia and brought to recovery area in stable condition. I was present for the entire duration of the procedure. Tasha Houdek is required at bedside as delivery driver assistant for robotic portion of the case including docking, instrumentation, de-docking, troubleshooting, dissection, and specimen retrieval. Since there is no qualified resident to assist at bedside, her role is critical to ensure the safety of the complex operation. Harsha Ojeda MD Thoracic Surgeon [facility] Paediatric Thoracic Physiciancode inspector [facility] Office phone: Pager: [phone] * Preprocedure Instructions - Luci Alvarez RN - 10/26/2024 9:53 AM EDT ADULT SURGERY PRE-OPERATIVE INSTRUCTIONS You will receive notification one business day prior to your surgery to confirm your arrival time and any additional information between 2 P.M. - 5 P.M. It is important that you answer your phone and/or check your messages during this time. You may see in [employer] your surgery start time changes several times even up to the day before your procedure. Please disregard those times and only follow the time given by the eyeglass lens cutter who will be notifying you via phone [...] the hospital and check in at the [facility] Outpatient Desk as you enter the hospital directly in front of you. If you enter through the Main Entrance, take the elevator off the lobby on the right labeled A to the 2nd floor and check in at the [facility] Outpatient Surgery desk as you exit [...] when they speak to you to make sureyou are aware. You are allowed 2 adults over the age of 18 to accompany you on the day of surgery. Only one personmay be allowed to go back into the [...] with you at time of discharge. The parts driver of thesetransportation services is not responsible for your care [...] nurse when you arrive for surgery. Nail lebanese must be removed off one finger of [...] themselves, a legal guardian or Power of Audio Installer must accompany them to the hospital. If this is not possible, please call [phone] to make additional arrangements. Please bring guardianship or legal Power of Audio Installer paperworkwith you on the day of surgery. Wear comfortable, loose-fitting clothing. Do not bring any home medications with you to the hospital. If you have any questions or concerns, please call Pre-Admission Testing at or your Physician s office Dr. Harsha Ojeda [phone] documented in this [facility] Work Phone: 1(622) 594-661007-01-2025 Nurse Note* Yue Toledo RN - 11/21/2024 12:05 PM EDT Patient and given AVS and reviewed. Patient and verbalized understanding. Reviewed post op care, pain management and new medication. All belongings sent with patient. [facility]07-01-2025 Nurse Note* Yue Toledo RN - 11/21/2024 12:05 PM EDT Patient and given AVS and reviewed. Patient and verbalized understanding. Reviewed post op care, pain management and new medication. All belongings sent with patient. * Melissa Barber RN - 11/20/2024 11:48 AM EDT 1100- Pt arrived to sicu 4 connected to monitors. GERIATRICS PHYSICIAN Jacobo at bedside. documented [facility] Work Phone: 1([phone]) 674-687907-01-2025 Hospital course Narrative* Partha Rocha, COLLECTIONS CURATOR-CHIEF CONSOLE OPERATOR - 11/21/2024 10:34 AM EDT Discharge Diagnosis Neurofibroma of thorax Issues Requiring Follow-Up S/p mediastinal mass resection Test Results Pending At Discharge Pending Labs Order Current Status Surgical Pathology Exam In process Hospital Course 44 yo female history of hydrocephalus status post PLATER HELPER shunt, neurofibromatosis, gastroesophageal reflux disease, depression and [...] to be suitable for discharge to home. Outpatientfollow-up arranged in 3 weeks. Visit Vitals BP [...] Rate 85 BPM Atrial Rate 85 BPM IA Interval 166 ms QRS Duration 90 ms QT Interval 390 ms QTC Calculation(Bazett) 464 ms P Peosta 52 degrees R Peosta -4 degrees T Peosta 29 degrees QRS Count 14 beats Q [...] removal. COMPARISON: Chest radiograph 11/21/2024 ACCESSION NUMBER(S): [id number] ORDERING CLINICIAN: PARTHA ROCHA FINDINGS: AP radiograph of the chest was provided. A presumed PLATER HELPER shunt is seen overlying the right base of the neck, right chest wall, and right hemiabdomen with tip not in [id number]. Interval removal of left chest tube. CARDIOMEDIASTINAL SILHOUETTE: The cardiomediastinal silhouette is persistently enlarged but stable in size and configuration. LUNGS: There isno consolidation, pleural effusion, or pneumothorax. ABDOMEN: No remarkable upper abdominal findings. BONES: No acute osseous changes. Interval removal of left chest tube. No evidence of acute cardiopulmonary process. MACRO: None Signed by: Jose Rogers 11/21/2024 10:33 AM Dictation workstation: [id number] XR chest 1 view Result Date: 11/21/2024 Interpreted By: Eloy José, STUDY: XR CHEST 1 VIEW; 11/21/2024 5:45 am INDICATION: Signs/Symptoms:s/p posterior mediastinal mass resection. COMPARISON: Portable chest, 20 November 2024 ACCESSION NUMBER(S): [id number] ORDERING CLINICIAN: ARIELLE SHAH TECHNIQUE: Single frontal view of the chest; Portable technique FINDINGS: Left chest tube unchanged in position Right sided central line is unchanged and well positioned No demonstrable pneumothorax or acute infiltrate on either side No large effusionor edema No interval change MACRO: None Signed by: Eloy José 11/21/2024 8:35 AM Dictation workstation: [id number] ECG 12 lead Result Date: 11/20/2024 Normal sinus rhythm Low voltage QRS Borderline ECG When compared with ECG of 07-AUG-2024 06:33, QT has lengthened Confirmed by Jordon Rabago ([id number]) on 11/20/2024 10:52:14 PM XR chest 1 view Result Date: 11/20/2024 Interpreted By: Raquel Sweeney, STUDY: Chest, single AP view. INDICATION: Signs/Symptoms:s/p mediastinal mass resection. COMPARISON: None. ACCESSION NUMBER(S): [id number] ORDERING CLINICIAN: ARIELLE SHAH FINDINGS: Chest tube [...] Raquel Sweeney 11/20/2024 11:04 AM Dictation workstation: [id number] Pertinent Physical Exam At Time of Discharge [...] Center 12/08/2024 11:30 AM Harsha Ojeda MD [id number] [place] Partha Rocha APRN-ASMITA [1] acetaminophen, 650 mg, oral, q6h cholecalciferol, [...] ondansetron, oxyCODONE, oxyCODONE, oxygen documented in this [facility] Work Phone: 1(276) 909-198607-01-2025 Hospital Discharge instructions* Discharge Instructions* MAC Cramer - 11/21/2024 10:20 AM EDT Images from the original note were not included. Video-Assisted Thoracic Surgery Discharge Instructions About this topic VATS stands for video-assisted thoracic surgery. It is done to look at and fix problems of the chest or lungs. The doctor may treat or biopsy cancer or get rid of fluid or air from around your lungs.The doctor may also treat hernias, infections, too [...] smell coming from the cut site; cut siteopens up. Very bad pain Chest pain that [...] that may apply to a specific patient. Itis not intended to be medical advice or [...] or approved for treating a specific patient. [employer]. and its affiliatesdisclaim any warranty or liability relating to this information or the use thereof. The use of thisinformation is governed by the Terms of Use, available at https://www.[employer] Devicesuwer.com/en/know/jhrxslrb-gvuxlaxjvhjkb-itznn Copyright 2022 [employer]. and its affiliates and/or licensors. All rights reserved. * Attachments The following attachments cannot be sent through Care Everywhere. * Oxycodone, ADULT (Guamanian) documented in this [facility] Work Phone: 1(495) 121-277207-01-2025 History of Present illness Narrative* Marisol Figueroa, COLLECTIONS CURATOR-CHIEF CONSOLE OPERATOR - 11/21/2024 7:26 AM EDT [facility] Date: 11/21/2024 Patient: Shawna Grigsby Date of : 1980 Admit Date: 11/20/2024 No chief complaint on file. History of Present Illness: Shawna Grigsby is a 44 y.o. year old female patient with Past Medical History of neurofibromatosis, hydrocephalus with PLATER HELPER shunt, HLD, GERD, depression/anxiety, Stage IIC melanoma [...] Past Medical History of neurofibromatosis, hydrocephalus with PLATER HELPER shunt, HLD, GERD, depression/anxiety, Stage IIC melanoma of the back,. Found tohave posterior mediastinal mass on PET scan and underwent biopsy consistent with neurofibroma. Referred to thoracic surgery and underwent VATS with mediastinal mass resection on . Now admitted tothe ICU and being treated for the following: Mediastinal mass consistent with neurofibroma s/p VATS with surgical resection (11/20/2024) Stage IIIc melanoma of the back Hydrocephalus s/p PLATER HELPER shunt HLD GERD Depression/anxiety Plan: ICU postoperatively Maintain left pleural chest tube to waterseal Tylenol, oxycodone, Dilaudid for pain control Perioperative Ancef for 2 doses, complete Continue home Cymbalta, estradiol, famciclovir, Pepcid, linaclotide, Singulair, pepcid, statin Regular diet Continue outpatient follow-up with [facility] [employer] [facility]: DVT Prophylaxis: Heparin subcutaneous GI Prophylaxis: home pepcid Bowel Regimen: PRN Diet: regular CVC: no Crowley: none Johnson: no Restraints: no Dispo: ICU [...] Dr. Jefferson and CTS team Marisol Figueroa, COLLECTIONS CURATOR-CHIEF CONSOLE OPERATOR [1] Past Medical History: Diagnosis Date Arthritis [...] family history on file. documented in this [facility] Work Phone: 1([phone]) 638-831207-01-2025 Plan of care note* Care Plan - Zoey Lozano RN - 11/21/2024 5:05 AM EDT The patient's goals for the shift include [...] plan/prevention/treatment measures Outcome: Progressing Flowsheets (Taken 11/21/2024 0504) Participates in plan/prevention/treatment measures: Discuss with provider [...] Promote/optimize nutrition Outcome: Progressing Flowsheets (Taken 11/21/2024 050) Promote/optimize nutrition: Assist with feeding Consume > 50% meals/supplements Discuss with provider if NPO > 2 days Monitor/record intake including meals Offer water/supplements/favorite foods Reassess MST if roller varnisher not consulted Goal: Promote skin healing Outcome: Progressing Flowsheets (Taken 11/21/2024 050) Promote skin healing: Assess skin/pad under line(s)/device(s) Ensure correct size (line/device) and apply per air tester instructions Protective dressings over bony prominences Rotate device position/do not position patient on device Turn/reposition every 2 hours/use positioning/transfer devices T [facility]06-30-2025 Nurse Note* Melissa Barber RN - 11/20/2024 11:48 AM EDT 1100- Pt arrived to sicu 4 connected to monitors. JASPER Centeno at bedside. [facility] Work Phone: 1([phone]) 681-444706-30-2025 Consult note* Jacobo Vital APRN-ASMITA - 11/20/2024 11:[address] [facility] Critical Care Medicine Date: 11/20/2024 Patient: Shawna Grigsby Date of : 1980 Admit Date: 11/20/2024 No chief complaint on file. History of Present Illness: Shawna Grigsby is a 44 y.o. year old female patient with Past Medical History of neurofibromatosis, hydrocephalus with PLATER HELPER shunt, HLD, GERD, depression/anxiety, Stage IIC melanoma [...] Past Medical History of neurofibromatosis, hydrocephalus with PLATER HELPER shunt, HLD, GERD, depression/anxiety, Stage IIC melanoma of the back,. Found tohave posterior mediastinal mass on PET scan and underwent biopsy consistent with neurofibroma. Referred to thoracic surgery and underwent VATS with mediastinal mass resection on . Now admitted tothe ICU and being treated for the following: Mediastinal mass consistent with neurofibroma s/p VATS with surgical resection (11/20/2024) Stage IIIc melanoma of the back Hydrocephalus s/p PLATER HELPER shunt HLD GERD Depression/anxiety Plan: Admit to ICU postoperatively Maintain left pleural chest tube to waterseal Tylenol, oxycodone, Dilaudid for pain control Perioperative Ancef for 2 doses Continue home Cymbalta, estradiol, famciclovir, Pepcid, linaclotide, Singulair, pepcid, statin Clear liquid diet, advance as tolerated Continue outpatient follow-up with [facility] [employer] [facility] [employer] [facility]: DVT Prophylaxis: Heparin subcutaneous GI Prophylaxis: home [...] include completion of procedure time. Jacobo Vital, COLLECTIONS CURATOR-CHIEF CONSOLE OPERATOR Pulmonary & Critical Care Medicine [facility] [1] Past Medical History: Diagnosis [...] mg, 2.5 mg, nebulization, q6h PRN, MAC Dean benzocaine-menthol (Cepastat Sore Throat) lozenge 1 lozenge, [...] mg, 180 mg, oral, Daily, MAC Nicole [facility] Work Phone: [phone]) 750-962306-30-2025 Consult note* MAC Traore - 11/20/2024 11:[address] [facility] Critical Care Medicine Date: 11/20/2024 Patient: Shawna Grigsby Date of : 1980 Admit Date: 11/20/2024 No chief complaint on file. History of Present Illness: Shawna Grigsby is a 44 y.o. year old female patient with Past Medical History of neurofibromatosis, hydrocephalus with PLATER HELPER shunt, HLD, GERD, depression/anxiety, Stage IIC melanoma [...] Past Medical History of neurofibromatosis, hydrocephalus with PLATER HELPER shunt, HLD, GERD, depression/anxiety, Stage IIC melanoma of the back,. Found tohave posterior mediastinal mass on PET scan and underwent biopsy consistent with neurofibroma. Referred to thoracic surgery and underwent VATS with mediastinal mass resection on . Now admitted tothe ICU and being treated for the following: Mediastinal mass consistent with neurofibroma s/p VATS with surgical resection (11/20/2024) Stage IIIc melanoma of the back Hydrocephalus s/p PLATER HELPER shunt HLD GERD Depression/anxiety Plan: Admit to ICU postoperatively Maintain left pleural chest tube to waterseal Tylenol, oxycodone, Dilaudid for pain control Perioperative Ancef for 2 doses Continue home Cymbalta, estradiol, famciclovir, Pepcid, linaclotide, Singulair, pepcid, statin Clear liquid diet, advance as tolerated Continue outpatient follow-up with [facility] [employer] [facility]: DVT Prophylaxis: Heparin subcutaneous GI Prophylaxis: home [...] include completion of procedure time. Jacobo Vital, COLLECTIONS CURATOR-CHIEF CONSOLE OPERATOR Pulmonary & Critical Care Medicine [facility] [1] Past Medical History: Diagnosis [...] mg, 2.5 mg, nebulization, q6h PRN, MAC Dean benzocaine-menthol (Cepastat Sore Throat) lozenge 1 lozenge, [...] oral, Daily, MAC Nicole documented in this [facility] Work Phone: 1(107) 570-267606-30-2025 Nurse Surgical operation note* Perioperative Nursing Note - Mikala Okeefe RN - 11/20/2024 10:[address] Hodges aware pt. Resting quietly but, when awakened to asked about her pain pt. States pain still [address] Hodges awake of amount of pain meds and OK with pt. Being discharged to SICU at this time. [facility]06-30-2025 Surgery Surgical operation note* Op Note - Harsha Ojeda MD - 11/20/2024 8:00 AM EDT Date: 11/20/2024 OR Location: [facility] Name: Shawna Grigsby, : 1980, Age: 44 y.o., , Sex: female Preop Diagnosis: posterior mediastinal mass Postop Diagnosis: posterior mediastinal mass Procedures: Robotic assisted posterior mediastinal mass resection Intercostal nerve block Bronchoscopy Surgeons: Harsha Ojeda MD Resident/Fellow/Other Kitchen Utility Associate: Surgeons and Role: * Tasha Farias PA-C - Assisting Anesthesia: General ASA: III Anesthesia Staff: Anesthesiologist: Joanna Hodges MD APPLICATIONS ENGINEER MANUFACTURING: Rogelio Clifton APRN-APPLICATIONS ENGINEER MANUFACTURING Estimated Blood Loss: 10mL Intra-op Medications: Administrations [...] EXAM Harsha Ojeda MD 11/20/2024 0849 Staff: Spray Gun Striper: Felicity Ruggiero RN Scrub Person: Sherie Tanner; [...] through the double lumen tube. This is minimalsecretions. The bronchoscopy examination was normal, no endobronchial [...] intercostal space anteriorly. The chest was entered througha direct cut down technique without issue and insufflation was started. The patient tolerated it well. The mass was visualized above the aortic arch posterior to left subclavian artery. I then placed2 additional instrument port in the same intercostal [...] I then continued to dissect around the masscircumferentially down to the vertebral body. The mass come off the spine without issue. The intercostal nerve going to the spinal canal was also clipped on the stay side and taken with cautery and th e specimen site. Now the mass was completely dissected off. The macroscopic margin was negative andthe investing sheath surrounding the mass was not violated. Now the mass was retrieved from the field using EndoCatch bag and passed out to pathology. I ensured hemostasis of the dissection bed. I scrubbed back to the bedside. We confirmed hemostasis at the port sites. I left one 28 Bahamian chest tubes posteriorly. Then the lung was reinflated without issue under visualization. All the ports are closed with 2-0 Vicryl and 3-0 Monocryl. The final counts were correct. Patient was allowed to be awaken from general anesthesia and brought to recovery area in stable condition. I was present for the entire duration of the procedure. Tasha Farias is required at bedside as delivery driver assistant for robotic portion of the case including docking, instrumentation, de-docking, troubleshooting, dissection, and specimen retrieval. Since there is no qualified resident to assist at bedside, her role is critical to ensure the safety of the complex operation. Harsha Ojeda MD Thoracic Surgeon [facility] Paediatric Thoracic Physiciancode inspector [facility] Office phone: Pager: [phone] [facility] Work Phone: 1(127) 293-860806-30-2025 History and physical note* Harsha Ojeda MD - 11/20/2024 7:02 AM EDT Path showed neurofibroma. Offered her upfront minimal invasive surgical resection. Patient consented to proceed. Harsha Ojeda MD Thoracic Surgeon [facility] Paediatric Thoracic Physiciancode inspector [facility] Office phone: HPI: Shawna Grigsby is a 44 y.o. female with a pmhx of HLD, neurofibromatosis, hydrocephalus with PLATER HELPER shunt, and melanoma of the back s/p WLE who is referred to me by Dr Pennington for evaluation and treatment ofmediastinal mass. Patient had upper back melanoma resected and underwent imaging surveillance. Whole body PET- CT demonstrated an FDG avid posterior mediastinal mass. This mass has been biopsied. Clinically patient is doing well. She denies any symptoms from this mass. She denied shortness of breathor dyspnea on exertion. She denied history of NC or stroke. She has a personal history [...] HPI PSHx: Cholecystectomy, hysterectomy, skin lesion resections, PLATER HELPER shunt revisions. SHx: Never smoker, deny ETOH, or illicit drugs. 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 FMHx: Maternal grandmother has breast cancer, maternal uncle has lung cancer and brain mets. Motherhad multiple spleen cancer. [Current Medications] [Current Medications] [...] by mouth once daily. Do not crush orchew., Disp: , Rfl: famciclovir (Famvir) 500 mg [...] This mass was biopsied. --Patient has known PLATER HELPER shunt across anterior right neck, anterior right [...] tumor, I will recommend upfront surgical resection. [facility] Work Phone: 1([phone]) 616-821206-30-2025 History and physical note* Harsha Ojeda MD - 11/20/2024 7:02 AM EDT Path showed neurofibroma. Offered her upfront minimal invasive surgical resection. Patient consented to proceed. Harsha Ojeda MD Thoracic Surgeon [facility] Paediatric Thoracic Physiciancode inspector [facility] Office phone: HPI: Shawna Grigsby is a 44 y.o. female with a pmhx of HLD, neurofibromatosis, hydrocephalus with PLATER HELPER shunt, and melanoma of the back s/p WLE who is referred to me by Dr Pennington for evaluation and treatment ofmediastinal mass. Patient had upper back melanoma resected and underwent imaging surveillance. Whole body PET- CT demonstrated an FDG avid posterior mediastinal mass. This mass has been biopsied. Clinically patient is doing well. She denies any symptoms from this mass. She denied shortness of breathor dyspnea on exertion. She denied history of NC or stroke. She has a personal history [...] HPI PSHx: Cholecystectomy, hysterectomy, skin lesion resections, PLATER HELPER shunt revisions. SHx: Never smoker, deny ETOH, or illicit drugs. 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 FMHx: Maternal grandmother has breast cancer, maternal uncle has lung cancer and brain mets. Motherhad multiple spleen cancer. [Current Medications] [Current Medications] [...] by mouth once daily. Do not crush orchew., Disp: , Rfl: famciclovir (Famvir) 500 mg [...] This mass was biopsied. --Patient has known PLATER HELPER shunt across anterior right neck, anterior right [...] recommend upfront surgical resection. documented in this [facility] Work Phone: 1(528) 386-408206-05-2025 Instructions* Preprocedure Instructions - Luci Alvarez RN - 10/26/2024 9:53 AM EDT ADULT SURGERY PRE-OPERATIVE INSTRUCTIONS You will receive notification one business day prior to your surgery to confirm your arrival time and any additional information between 2 P.M. - 5 P.M. It is important that you answer your phone and/or check your messages during this time. You may see in [employer] your surgery start time changes several times even up to the day before your procedure. Please disregard those times and only follow the time given by the eyeglass lens cutter who will be notifying you via phone [...] the hospital and check in at the [facility] Outpatient Desk as you enter the hospital directly in front of you. If you enter through the Main Entrance, take the elevator off the lobby on the right labeled A to the 2nd floor and check in at the [facility] Outpatient Surgery desk as you exit [...] office should let you know, and the [facility] nurses will follow up when they speak to you to make sureyou are aware. You are allowed 2 adults over the age of 18 to accompany you on the day of surgery. Only one personmay be allowed to go back into the [...] with you at time of discharge. The parts driver of thesetransportation services is not responsible for your care [...] nurse when you arrive for surgery. Nail lebanese must be removed off one finger of [...] themselves, a legal guardian or Power of Audio Installer must accompany them to the hospital. If this is not possible, please call [phone] to make additional arrangements. Please bring guardianship or legal Power of Audio Installer paperworkwith you on the day of surgery. Wear comfortable, loose-fitting clothing. Do not bring any home medications with you to the hospital. If you have any questions or concerns, please call Pre-Admission Testing at or your Physician s office Dr. Harsha Ojeda [phone] [facility]06-02-2025 History of Present illness Narrative * Alanna Pennington MD - 10/23/2024 4:40 PM EDT Images from the original note were not included. CUTANEOUS ONCOLOGY: FOLLOW UP Diagnosis: Stage IIC melanoma ([id number]) Location: back Oncologic history (see initial consultation [...] for abdominal distention, abdominal pain, constipation, diarrhea, nauseaand vomiting. Musculoskeletal: Negative for arthralgias, back pain and gait problem. Skin: Negative for itching, rash and wound. No new lesions or masses Neurological: Negative for extremity weakness, gait problem, headaches, light- headedness, numbness,seizures and speech difficulty. Hematological: Negative for adenopathy. [...] be IO vs. Surveillance. She has opted forsurveillance. We discussed surveillance schedule which includes Skin [...] clinical picture. Alanna Pennington MD Attending Physician [facility] Paediatric Thoracic Physiciancode inspector [facility] [employer] documented in this [facility] Work Phone: 1([phone]) 679-662605-19-2025 Hospital Discharge instructions* Discharge Instructions* Ada Jean RN - 10/09/2024 12:36 PM [...] questions related to your procedure: Please call [phone] between the hours of 7:00am-5:00pm Wednesday through Wednesday. Please call [phone] after 5:00pm and on weekends and holidays. In the event of an emergency call 911 or go to your nearest emergency room. [facility] this [facility] Work Phone: 1(354) 977-398405-19-2025 Evaluation note* Pre-Procedure Note - Tab Nino DO - 10/09/2024 12:00 PM EDT Interventional Radiology Preprocedure Note Indication for procedure: [...] been discussed with the patient and/or their contracts representative. All questions answered and they agree to proceed. [facility] Work Phone: 1(156) 254-108905-19-2025 Evaluation note* Pre-Procedure Note - Korey Butt MD - 10/09/2024 12:00 PM EDT Interventional Radiology Preprocedure Note CT guided lymph [...] been discussed with the patient and/or their contracts representative. All questions answered and they agree to proceed. Reviewed and approved by KOREY BUTT on 10/09/24 at 11:50 AM. [facility] Work Phone: 1(371) 481-579405-19-2025 Miscellaneous Notes* Pre-Procedure Note - Tab Nino DO - 10/09/2024 12:00 PM EDT Interventional Radiology Preprocedure Note Indication for procedure: [...] been discussed with the patient and/or their contracts representative. All questions answered and they agree to proceed. * Pre-Procedure Note - Korey Butt MD - 10/09/2024 12:00 PM EDT Interventional Radiology Preprocedure Note CT guided lymph [...] been discussed with the patient and/or their contracts representative. All questions answered and they agree to proceed. Reviewed and approved by KOREY BUTT on 10/09/24 at 11:50 AM. documented in this [facility] Work Phone: 1([phone]) 126-274405-14-2025 History of Present illness Narrative* Alanna Pennington MD - 10/04/2024 4:00 PM EDT Images from the original note were [...] for abdominal distention, abdominal pain, constipation, diarrhea, nauseaand vomiting. Musculoskeletal: Negative for arthralgias, back pain and gait problem. Skin: Negative for itching, rash and wound. No new lesions or masses Neurological: Negative for extremity weakness, gait problem, headaches, light- headedness, numbness,seizures and speech difficulty. Hematological: Negative for adenopathy. [...] lung but that is is a mediastinal LN.This is consistent with what our TB thought as well. Ms. Grigsby is interested in meeting with Dr. Ojeda to start the conversation of what surgery would look like if the lesion was positive. Dr. Ojeda is aware that I would prefer a neoadjuvant approach if the LN is positive. At this time Shawna and Rickeybrook not want to discuss what NAC could [...] clinical picture. Alanna Pennington MD Attending Physician [facility] Paediatric Thoracic Physiciancode inspector [facility] documented in this [facility] Work Phone: [phone]) 240-293605-09-2025 History of Present illness Narrative* Alanna Pennington MD - 09/29/2024 11:00 AM EDT Images from the original note [...] for abdominal distention, abdominal pain, constipation, diarrhea, nauseaand vomiting. Musculoskeletal: Negative for arthralgias, back pain and gait problem. Skin: Negative for itching, rash and wound. No new lesions or masses Neurological: Negative for extremity weakness, gait problem, headaches, light- headedness, numbness,seizures and speech difficulty. Hematological: Negative for adenopathy. [...] if there is something to biopsy versus braga rveillance. RTC 1 week to go over TB [...] clinical picture. Alanna Pennington MD Attending Physician [facility] Paediatric Thoracic Physiciancode inspector [facility] documented in this [facility] Work Phone: [phone]) 945-925004-16-2025 History of Present illness Narrative* Alanna Pennington MD - 09/06/2024 10:20 AM EDT Images from the original note were not included. INITIAL CONSULTATION: MELANOMA Referring Surgeon: Yanet Pacheco MD Melanoma type: superficial spreading Location of primary site: back Date of WLE and SLNB: 08/07/2024 Final pathology: [place] Depth- 4.3 mm Ulceration status- present Dermal mitotic rate: 1/mm2 Microsatellitosis: not present Lymphovascular invasion: no Neutropism/perineural invasion: no Margins: negative [place] lymph node status: 0/2 positive lymph nodes [...] for abdominal distention, abdominal pain, constipation, diarrhea, nauseaand vomiting. Musculoskeletal: Negative for arthralgias, back pain and gait problem. Skin: Negative for itching, rash and wound. No new lesions or masses Neurological: Negative for extremity weakness, gait problem, headaches, light- headedness, numbness,seizures and speech difficulty. Hematological: Negative for adenopathy. [...] q6 weeks (nivolumab can be extended to [id number]). . We discussed treatment route, efficacy, and possible MANNY. I would recommend pembrolizumab 200 mg o0iynzd x 1 year to start. I gave her patient information on thistreatment. She will need baseline scans. MRI brain and PET. RTC post imaging. Shawna Grigsby and her partner understand the plan and have no further questions. she will contact usif there are any new concerns or change in clinical picture. Alanna Pennington MD Attending Physician [facility] Paediatric Thoracic Physiciancode inspector [facility] [1] Past Medical History: Diagnosis Date Arthritis in entire back Chronic headaches migraines Depression GERD (gastroesophageal reflux disease) Hydrocephalus has had shunt placed Hyperlipidemia Irritable bowel syndrome Melanoma (Multi) on back Wears glasses documented in this [facility] Work Phone: 1([phone]) 366-276904-08-2025 History of Present illness Narrative* Yanet Pacheco MD - 08/29/2024 9:20 AM EDT ASSESSMENT AND PLAN Shawna Grigsby is a [...] adjuvant therapy vs surveillance. Yanet Pacheco MD international sourcing manager Division of Surgical Oncology [phone] [email or web address] SUBJECTIVE Shawna Grigsby is a 44 y.o. female who presents for a postoperative clinic visit. Referring provider: iJmmy Polanco Diagnosis: melanoma Location: back Thickness: 4.3 [...] and HMB45 (controls appropriate) were examined on blocksB1 through B3. In blocks B1 and focally [...] Melanoma of back (Multi) C43.59 Specimen ID: [id number], [id number] Specimen Source: SKIN INCISIONAL BIOPSY Site/Location: WIDE LOCAL INCISION MIDBACK Collection Comments: SHORT STITCH SUPERIOR/ LONG STITCH LEFT Specimen ID: [id number], [id number] Specimen Source: LYMPH NODE EXCISION Site/Location: RIGHT [...] determined by the Department of Pathology at [facility]. The FDA does not require this test [...] 1.1 cm. The specimen is serially sectioned. Thespecimen is entirely submitted in 2 cassettes. JOSEFINA (Gross performed at [facility] 08/07/2024) Case Summary Report MELANOMA OF THE SKIN: Excision, Re-Excision 8th Edition - Protocol posted: 04/02/2021MELANOMA OF THE SKIN: EXCISION, RE- EXCISION - A SPECIMEN Procedure Excision [place] node(s) biopsy Specimen Laterality Midline TUMOR Tumor [...] of Lymph Nodes Examined 2 Number of [place] Nodes Examined 1 PATHOLOGIC STAGE CLASSIFICATION (pTNM, AJCC 8th Edition) pT Category pT4b pN Category pN0 ADDITIONAL FINDINGS Additional Findings Multifocal incidental melanocytic nevi and numerous incidental neurofibromas throughout the excision. Comment(s) Tumor block residual melanoma in situ present in blocks A19, A20, A22, and A24. documented in this [facility] Work Phone: 1([phone]) 777-488503-17-2025 Miscellaneous Notes* Op Note - Yanet Pacheco MD - 08/07/2024 9:39 AM EDT Excision Lesion Back, [place] Lymph Node Biopsy (R) Operative Note Date: 08/07/2024 OR Location: [facility] OR Name: Shawna Grigsby, : 1980, Age: 43 y.o., , Sex: female Diagnosis Pre-op Diagnosis * Melanoma of back (Multi) [C43.59] Post-op Diagnosis * Melanoma of back (Multi) [C43.59] Procedures Excision Lesion Back 05933 - IA EXCISION TUMOR SOFT TIS BACK/FLANK SUBQ 3 CM/> [place] Lymph Node Biopsy 14891 - IA BX/EXC LYMPH NODE OPEN DEEP AXILLARY NODE Surgeons * Yanet Pacheco - Primary Resident/Fellow/Other Kitchen Utility Associate: Surgeons and Role: * Sofia Baker PA-C - Assisting Staff: Director Of Vital Statistics: Neto: Nela Lucio Person: Reji Anesthesia Staff: Anesthesiologist: [...] lymph nodes: 2 The patient arrived at [facility] for the aforementioned procedure. Consent was obtained,history and physical performed, and questions were answered. The patient was moved into the operating room and induced under anesthesia. A timeout was performed prior to surgery. For the wide local excision, the surgical site was prepped and draped in the usual sterile fashion.A margin was drawn about the lesion and this was extended into a 3:1 elliptical incision along natural body lines to facilitate a tension- free closure. Local anesthetic was injected and an incision was made along this ellipse. Electrocautery was used to dissected down to the muscular fascia and thespecimen was then removed and oriented with sutures as indicated above. This was sent for permanentdermatopathology. Circumferential soft tissue flaps were created to facilitate closure. The wound was irrigated and hemostasis was achieved. The wound was then closed in a complex multilayer fashion using deep 2-0 Vicryl awmics-qo-zcitwq, interrupted 3-0 Vicryl deep dermals, and a cutaneous closureindicated above. The skin was dressed with Dermabond. [...] multilayer fashion using a deep 2-0 Vicryl pyefal-xv-zueee, interrupted deep3-0 Vicryl, and a running subcuticular 4-0 Monocryl. The skin was dressed with Dermabond. The patient was awoken and returned to the PACU in anticipation of discharge home. I was present scrubbed and directed all operative decision-making. Please note that we will be billing for the [employer]'s delivery driver assistant as he/she was critical for successful completion of the case including positioning of the body, retraction, suture management, and woundclosure. There was no qualified resident available for the case. * Preprocedure Instructions - uLci Alvarez RN - 07/26/2024 2:38 PM EST ADULT SURGERY PRE-OPERATIVE INSTRUCTIONS You will receive [...] only follow the time given by the eyeglass lens cutter who will be notifying you via phone [...] the hospital and check in at the [facility] Outpatient Desk as you enter the hospital directly in front of you. If you enter through the Main Entrance, take the elevator off the lobby on the right labeled A to the 2nd floor and check in at the [facility] Outpatient Surgery desk as you exit [...] office should let you know, and the [facility] nurses will follow up when they speak to you to make sureyou are aware. You are allowed 2 adults over the age of 18 to accompany you on the day of surgery. Only one personmay be allowed to go back into the [...] with you at time of discharge. The parts driver of [employer]ransportation services is not responsible for your care [...] nurse when you arrive for surgery. Nail lebanese must be removed off one finger of [...] themselves, a legal guardian or Power of Audio Installer must accompany them to the hospital. If this is not possible, please call [phone] to make additional arrangements. Please bring guardianship or legal Power of Audio Installer paperworkwith you on the day of surgery. Wear comfortable, loose-fitting clothing. Do not bring any home medications with you to the hospital. If you have any questions or concerns, please call Pre-Admission Testing at or your Physician s office Dr. Yanet Pacheco [phone] documented in this [facility] Work Phone: [phone]) [phone] Surgery Surgical operation note* Op Note - Yanet Pacheco MD - 08/07/2024 9:39 AM EDT Excision Lesion Back, [place] Lymph Node Biopsy (R) Operative Note Date: 08/07/2024 OR Location: [facility] OR Name: Shawna Grigsby, : 1980, Age: 43 y.o., , Sex: female Diagnosis Pre-op Diagnosis * Melanoma of back (Multi) [C43.59] Post-op Diagnosis * Melanoma of back (Multi) [C43.59] Procedures Excision Lesion Back - IA EXCISION TUMOR SOFT TIS BACK/FLANK SUBQ 3 CM/> [place] Lymph Node Biopsy 98978 - IA BX/EXC LYMPH NODE OPEN DEEP AXILLARY NODE Surgeons * Yanet Pacheco - Primary Resident/Fellow/Other Kitchen Utility Associate: Surgeons and Role: * Sofia Baker PA-C - Assisting Staff: Director Of Vital Statistics: Spray Gun Striper: Nela Lucio Person: Reji Anesthesia Staff: Anesthesiologist: [...] lymph nodes: 2 The patient arrived at [facility] for the aforementioned procedure. Consent was obtained,history and physical performed, and questions were answered. The patient was moved into the operating room and induced under anesthesia. A timeout was performed prior to surgery. For the wide local excision, the surgical site was prepped and draped in the usual sterile fashion.A margin was drawn about the lesion and this was extended into a 3:1 elliptical incision along natural body lines to facilitate a tension- free closure. Local anesthetic was injected and an incision was made along this ellipse. Electrocautery was used to dissected down to the muscular fascia and thespecimen was then removed and oriented with sutures as indicated above. This was sent for permanentdermatopathology. Circumferential soft tissue flaps were created to facilitate closure. The wound was irrigated and hemostasis was achieved. The wound was then closed in a complex multilayer fashion using deep 2-0 Vicryl pqbynw-yj-zgzpcn, interrupted 3-0 Vicryl deep dermals, and a cutaneous closureindicated above. The skin was dressed with Dermabond. [...] multilayer fashion using a deep 2-0 Vicryl igrhpj-fo-gpsch, interrupted deep3-0 Vicryl, and a running subcuticular 4-0 Monocryl. The skin was dressed with Dermabond. The patient was awoken and returned to the PACU in anticipation of discharge home. I was present scrubbed and directed all operative decision-making. Please note that we will be billing for the [employer]'s delivery driver assistant as he/she was critical for successful completion of the case including positioning of the body, retraction, suture management, and woundclosure. There was no qualified resident available for the case. [facility] Work Phone: [phone] Hospital Discharge instructions* Discharge Instructions* Yanet Pacheco MD - 08/07/2024 9:19 AM [...] a sterile dressing placed in the operating room.Do not pick or peel it off. This [...] of the following, please call Ernestine Clark ([phone]) or Dr. Pacheco's office ([phone]). Swelling under the incision like a golf ball or larger. Redness of the skin that is spreading away from the incision. Drainage from the incision. Fevers, chills, or any other concerning symptoms. Follow-up Call Heidy Horan at [phone] to arrange a postop visit in 2-3 weeks If you have sutures through your skin, these should be removed at [address] Pacheco will discuss your pathology and Tumor Board recommendations at your postop visit. You maysee your pathology online prior the visit. Write down any questions you have and bring them to yourpostop visit. * Attachments The following attachments cannot be sent through Care Everywhere. * General Anesthesia Discharge Instructions (Guamanian) documented in this [facility] Work Phone: [phone]) 684-507703-17-2025 Attending History and physical note* Yanet Pacheco MD - 08/07/2024 8:35 AM EDT H&P reviewed. The patient was examined and [...] We will look for OR time at [facility] in the coming weeks. I believe this will close primarily with a 2 cm margin. Tumor board discussion is pending I spent 60 minutes in the professional and overall care of this patient. Yanet Pacheco MD international sourcing manager Division of Surgical Oncology [phone] [email or web address] History Of [...] Medical History Hydrocephalus with shunt Surgical History bacilio Cappsh bso, shunt Social History She has no [...] Results FINAL DIAGNOSIS 5 SLIDES, [facility] , #[id number] (BX: 06/28/2024) SKIN, RIGHT BACK, BIOPSY: MALIGNANT [...] (pTNM, AJCC 8th Edition) pT Category pT4b [facility] Work Phone: 1([phone]) 445-328903-17-2025 History and physical note* Yanet Pacheco MD - 08/07/2024 8:35 AM EDT H&P reviewed. The patient was examined and [...] We will look for OR time at [facility] in the coming weeks. I believe this will close primarily with a 2 cm margin. Tumor board discussion is pending I spent 60 minutes in the professional and overall care of this patient. Yanet Pacheco MD international sourcing manager Division of Surgical Oncology [phone] [email or web address] History Of [...] Results FINAL DIAGNOSIS 5 SLIDES, [facility] , #[id number] (BX: 06/28/2024) SKIN, RIGHT BACK, BIOPSY: MALIGNANT [...] Edition) pT Category pT4b documented in this [facility] Work Phone: 1([phone]) 877-620003-05-2025 Instructions* Preprocedure Instructions - Luci Alvarez RN - 07/26/2024 2:38 PM EST ADULT SURGERY PRE-OPERATIVE INSTRUCTIONS You will receive notification one business day prior to your surgery to confirm your arrival time and any additional information between 2 P.M. - 5 P.M. It is important that you answer your phone and/or check your messages during this time. You may see in [facility] your surgery start time changes several times even up to the day before your procedure. Please disregard those times and only follow the time given by the eyeglass lens cutter who will be notifying you via phone [...] the hospital and check in at the [facility] Outpatient Desk as you enter the hospital directly in front of you. If you enter through the Main Entrance, take the elevator off the lobby on the right labeled A to the 2nd floor and check in at the [facility] Outpatient Surgery desk as you exit [...] when they speak to you to make sureyou are aware. You are allowed 2 adults over the age of 18 to accompany you on the day of surgery. Only one personmay be allowed to go back into the [...] with you at time of discharge. The parts driver of thesetransportation services is not responsible for your care [...] nurse when you arrive for surgery. Nail lebanese must be removed off one finger of [...] themselves, a legal guardian or Power of Audio Installer must accompany them to the hospital. If this is not possible, please call [phone] to make additional arrangements. Please bring guardianship or legal Power of Audio Installer paperworkwith you on the day of surgery. Wear comfortable, loose-fitting clothing. Do not bring any home medications with you to the hospital. If you have any questions or concerns, please call Pre-Admission Testing at or your Physician s office Dr. Yanet Pacheco [phone] [facility]02-25-2025 History of Present illness Narrative * Yanet Pacheco MD - 07/18/2024 11:40 AM [...] We will look for OR time at [facility] in the coming weeks. I believe this will close primarily with a 2 cm margin. Tumor board discussion is pending I spent 60 minutes in the professional and overall care of this patient. Yanet Pacheco MD international sourcing manager Division of Surgical Oncology [phone] [email or web address] History Of [...] Results FINAL DIAGNOSIS 5 SLIDES, [facility] , #[id number] (BX: 06/28/2024) SKIN, RIGHT BACK, BIOPSY: MALIGNANT [...] signed out by Ron Aragon MD at 1413 Case Summary Report MELANOMA OF THE SKIN: [...] Edition) pT Category pT4b documented in this [facility] Work Phone: [phone] History of Present illness Narrative* SUZANNA Santiago - 06/13/2024 8:30 AM EST Reason for Appointment: Patient ID: Shawna Grigsby [...] nursing note reviewed. Exam conducted with a personnel quality assurance auditor present. Vitals: Estimated body mass index is [...] of: Talon Tilley DO documented in this encounterCrossroads [facility] Medical [id number] NoteEXAMINATION: CT HEAD WO CON HISTORY: H/O: Disorder [...] Electronically authenticated by: ROGELIO VAZQUEZ Date: 2021-12-10 07:26[facility] CenterEvaluation noteNo assessment information availableHarrison Community Hospital Work Phone: Evaluation note* Diagnosis Well woman exam with routine gynecological exam Routine gynecological examination documented [facility]* Diagnosis Melanoma of back (Multi)- Primary Melanoma of back (Multi)- Primary documented in this encounter [facility] Work Phone: Evaluation note* Diagnosis Melanoma of back (Multi)- Primary Melanoma of back (Multi) Class 1 obesity due to excess calories with body mass index (BMI) of 31.0 to 31.9 in adult Gastroesophageal reflux disease without esophagitis Esophageal reflux documented in this encounter [facility] Work Phone: Evaluation note* Diagnosis Melanoma of back (Multi) documented in this encounter [facility] Work Phone: Evaluation note* Diagnosis Melanoma of back (Multi)- Primary documented in this encounter [facility] Work Phone: Evaluation note* Diagnosis Melanoma of back (Multi) documented in this encounter [facility] Work Phone: Evaluation note* Diagnosis Melanoma of back (Multi) documented in this encounter [facility] Work Phone: Evaluation note* Diagnosis Melanoma of back (Multi) documented in this encounter [facility] Work Phone: Evaluation note* Diagnosis Melanoma of back (Multi) documented in this encounter [facility] Work Phone: Evaluation note* Diagnosis Melanoma of back (Multi)- Primary documented in this encounter [facility] Work Phone: Evaluation note* Diagnosis Melanoma of back (Multi) documented in this encounter [facility] Work Phone: Evaluation note* Diagnosis Neurofibroma of thorax- Primary Melanoma of back (Multi) Neurofibroma of thorax documented in this encounter [facility] Work Phone: Evaluation note* Diagnosis Neurofibroma of thorax- Primary Neurofibroma of thorax Acute postoperative pain Other acute postoperative pain Hyperlipidemia Other and unspecified hyperlipidemia Irritable bowel syndrome Depression Depressive disorder, not elsewhere classified History of migraine headaches Skin cancer Other malignant neoplasm of skin, site unspecified documented in this encounter [facility] Work Phone: Evaluation note* Diagnosis Neurofibroma of thorax- Primary documented in this encounter [facility] Work Phone: Evaluation note* Diagnosis Mediastinal mass Swelling, mass, or lump in chest documented in this encounter [facility] Work Phone: Evaluation note* Diagnosis Onset Date Resolution Status Admit Date Insomnia acuteAugust 2024 9:18amMigrainenoneactiveAugust 2024 9:18am [facility] Work Phone: Evaluation note* Diagnosis Shunt malfunction- Primary Hydrocephalus, unspecified type (CMS-HCC) Shunt malfunction, initial encounter Acute post-operative pain Neurofibromatosis (CMS-HCC) Neurofibromatosis, unspecified Irritable bowel syndrome Hyperlipidemia Other and unspecified hyperlipidemia Gastroesophageal reflux disease without esophagitis Esophageal reflux [facility] Diagnosis S/P PLATER HELPER shunt- Primary Presence of cerebrospinal fluid drainage device Malfunction of ventriculoperitoneal shunt, subsequent encounter documented [facility]* Diagnosis S/P PLATER HELPER shunt- Primary Presence of cerebrospinal fluid drainage device documented in this encounter [facility] SystemInstructionsNot on filedocumented in this encounter [facility] SystemReason for referral (narrative)No reason for referral information availableMarion Hospital Work Phone: Reason for visit Narrative* Auth/CertSpecialty Diagnoses / ProceduresReferred By ContactReferred To Contact Diagnoses Melanoma of back (Multi) Melanoma of back (Multi) [C43.59] Procedures [place] EXCISION TUMOR SOFT TIS BACK/FLANK SUBQ 3 CM/> [place] BX/EXC LYMPH NODE OPEN DEEP AXILLARY NODE Excision Lesion Back [place] [address] [address] [place] [address] Phone: tel: fax: [facility] [place] [address] [place] [phone] fax: Referral IDStatusReasonStart DateExpiration DateVisits RequestedVisits [id number] [facility] Work Phone: reason for visit Narrative* Imaging (Routine) - AuthorizedSpecialtyDiagnoses / ProceduresReferred By ContactReferred To ContactRadiology Diagnoses Melanoma of back (Multi) Procedures [place] [address] [facility] [place] [id number] Phone: tel: fax: Referral IDStatusReasonStart DateExpiration DateVisits RequestedVisits [id number] Perform Procedure [facility] Work Phone: reason for visit Narrative* Imaging (Routine) - AuthorizedSpecialtyDiagnoses / ProceduresReferred By ContactReferred To ContactRadiology Diagnoses Melanoma of back (Multi) Procedures [place] [address] [facility] [place] [address] Phone: tel: fax: Referral IDStatusReasonStart DateExpiration DateVisits RequestedVisits [id number] Perform Procedure [facility] Work Phone: reason for visit Narrative* Imaging (Emergency) - AuthorizedSpecialtyDiagnoses / ProceduresReferred By ContactReferred To ContactRadiology Diagnoses Melanoma of back (Multi) Procedures MR brain w and wo IV contrast MR brain w [place] [address] [place] [address] Phone: tel: fax: Referral IDStatusReasonStnorwalk DateExpiration DateVisits RequestedVisits [id number] Perform Procedure [facility] Work Phone: reason for visit Narrative* Imaging (Emergency) - AuthorizedSpecialtyDiagnoses / ProceduresReferred By ContactReferred To ContactRadiology Diagnoses Melanoma of back (Multi) Procedures NM PET CT whole body NM PET CT whole body Alanna Pennington [place] [id number] [place] [address] Phone: tel: fax: Referral IDStatAscension St. [facility] – TulsaBoxCastGoshen DateExpiration DateVisits RequestedVisits [id number] Perform Procedure [facility] Work Phone: reason for visit Narrative* Imaging (Emergency) - AuthorizedSpecialtyDiagnoses / ProceduresReferred By ContactReferred To ContactRadiology Diagnoses Melanoma of back (Multi) Procedures NM PET CT whole body NM PET CT whole body Alanna Pennington MD [id number] [place] [address] Phone: tel: fax: Referral IDStatusReasonGoshen DateExpiration DateVisits RequestedVisits [id number] Perform Procedure [facility] Work Phone: reason for visit Narrative* Imaging (Emergency) - AuthorizedSpecialtyDiagnoses / ProceduresReferred By ContactReferred To ContactRadiology Diagnoses Melanoma of back (Multi) Procedures CT guided percutaneous biopsy mediastinum CT guided percutaneous biopsy muscle Consult to Interventional Radiology Alanna Pennington MD [id number] [place] [address] Phone: tel: fax: Referral IDStatusReasonStart DateExpiration DateVisits RequestedVisits [id number] Perform Procedure [facility] Work Phone: Rebpec for visit Narrative* Auth/CertSpecialty Diagnoses / ProceduresReferred By ContactReferred To Contact Diagnoses 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] Procedures IA THORACOSCOPY W/EXC MEDIASTINAL CYST TUMOR/MASS Robotic assisted posterior mediastinal mass resection - [place] [address] [place] [address] Phone: tel: fax: [facility] [place] [address] [place] [phone] fax: Referral IDStatusReasonStart DateExpiration DateVisits RequestedVisits [id number] [facility] Work Phone: Rewyto for visit Narrative* Imaging (Routine) - AuthorizedSpecialtyDiagnoses / ProceduresReferred By ContactReferred To ContactRadiology Diagnoses Mediastinal mass Procedures XR chest 2 [place] [address] [place] [address] Phone: tel: fax: Referral IDStatusReasonStart DateExpiration DateVisits RequestedVisits [id number] Perform Procedure [facility] Work Phone: Chief Complaint and Reason for Visit Chief Complaint CTDZ Meds See order Chief Complaint Admit Date Yearly January 16, 2025 9: 18am Reason for Visit Admit Date Insomnia January 16, 2025 9: 18am Migraine January 16, 2025 9: 18am Advance Directives Advance Directive Response Recorded Date/ Time Advance Directives No October 06 1:00pm Date ActivatedDate InactivatedComments08/07/2024 5:55 AMQuestionAnswerComments Plan of Care:* Code Status Discussion Not Completed Decision Maker:* Provider Rationale:* Patient condition does not warrant discussion Date ActivatedDate InactivatedComments08/07/2024 5:55 AMQuestionAnswerComments Plan of Care:* Code Status Discussion Not Completed Decision Maker:* Provider Rationale:* Patient condition does not warrant discussion Date ActivatedDate InactivatedComments02/13/2025 12:57 PM02/14/2025 5:35 PM Summary Purpose Family History Relationship Condition Age at Onset Recorded Date/T steven sister Crohn's disease Unknown maternal grandfatherCerebrovascular accident (CVA)Unknownmaternal grandmother Cerebrovascular accident (CVA)Unknownpaternal grandfatherCerebrovascular accident (CVA)Unknownpaternal grandmotherCerebrovascular accident (CVA)Unknown fatherBack painUnknown Additional Source Comments Care Teams (unrecognized sec tion and content) Team Status: Inactive Member Role Status Dates Emmanuel Laughlin MD Attending Provider Active Team Status: Inactive Member Role Status Dates Monroe Whitaker JR DO Primary Care Provider Active Luisa Sal ProviderActive Team Status: Inactive Member Role Status Dates Emmanuel Laughlin MD Attending Provider Active PHYSICIAN NO FAMILYPrimary Care ProviderActive Team Status: Active Member Role Status Dates Monroe Whitaker JR DO Primary Care Provider Active Team Status: Inactive Member Role Status Dates Monroe Whitaker JR DO Primary Care Provider Active Luisa Charles ProviderActiveTeam MemberRelationshipSpecialtyStart DateEnd Date Monroe Whitaker MD [facility] [place] [address] PCP - GeneralInternal Medicine06/09/23Team MemberRelationshipSpecialtyStart Date End Date Monroe Whitaker MD [facility] [place] [address] PCP - GeneralInternal Medicine06/09/23Team MemberRelationshipSpecialtyStart Date End Date Monroe Whitaker MD [address] [place] [address] PCP - GeneralInternal Medicine06/09/23Team MemberRelationshipSpecialtyStart Date End Date Monroe Whitaker DO [address] [facility] [place] [address] PCP - GeneralInternal Medicine07/07/24 Migel Polanco MD [address] [facility] [address] [place] [address] Referring PhysicianDermatolog07/07/24Team MemberRelationshipSpecialtyStart Date End Date Monroe Whitaker DO [address] [place] [address] PCP - GeneralInternal Medicine07/07/24 Migel Polanco MD [address] [facility] [address] [place] [address] Referring PhysicianDermatolog07/07/24Team MemberRelationshipSpecialtyStart Date End Date Monroe Whitaker DO [address] [place] [address] PCP - GeneralInternal Medicine07/07/24 Migel Polanco MD [address] [facility] [address] [place] [address] Referring PhysicianDermatology2Team MemberRelationshipSpecialtyStart Date End Date Monroe Whitaker DO [address] [place] [address] PCP - GeneralInternal Medicine07/07/24 Migel Polanco MD [address] [place] [address] [place] [address] Referring PhysicianDermatolog07/07/24Team MemberRelationshipSpecialtyStart Date End Date Monroe Whitaker DO [address] [place] [address] PCP - GeneralInternal Medicine07/07/24 Migel Polanco MD [address] [facility] [address] [place] [address] Referring PhysicianDermatolog07/07/24Team MemberRelationshipSpecialtyStart Date End Date Monroe Whitaker DO [address] [place] [address] PCP - GeneralInternal Medicine07/07/24 Migel Polanco MD [address] [facility] [address] [place] [address] Referring PhysicianDermatolog07/07/24 [place] [address] [place] [address] Consulting PhysicianHematology and Oncology09/06/24Team MemberRelationship SpecialtyStart DateEnd Date Monroe Whitaker DO [address] [place] [address] PCP - GeneralInternal Medicine07/07/24 Migel Polanco MD [address] [place] [address] [place] [address] Referring PhysicianDermatolog07/07/24 [place] [address] [place] [address] Consulting PhysicianHematology and Oncology09/06/24 Francheska Hayden, RN Patient Care NavigatorHematology and Oncology09/06/24Team MemberRelationship SpecialtyStart DateEnd Date Monroe Whitaker DO [address] [place], [place] [id number] PCP - GeneralInternal Medicine07/07/24 Migel Polanco MD [address] [place] [address] [place] [address] Referring PhysicianDermatolog07/07/24 [place] [address] [place] [address] Consulting PhysicianHematology and Oncology09/06/24 Francheska Hayden, CARLOS Patient Care NavigatorHematology and Oncology09/06/24Te MemberRelationship SpecialtyStart DateEnd Date Monroe Whitaker DO [address] [place] [address] PCP - GeneralInternal Medicine07/07/24 Migel Polanco MD [address] [place] [address] [place] [address] Referring PhysicianDermatology2 [place] [address] [place] [address] Consulting PhysicianHematology and Oncology09/06/24 Francheska Hayden, RN Patient Care NavigatorHematology and Oncology09/06/24Team MemberRelationship SpecialtyStart DateEnd Date Monroe Whitaker DO [address] [place] [address] PCP - GeneralInternal Medicine07/07/24 Migel Polanco MD [address] [place] [address] [place] [address] Referring PhysicianDermatology2 [place] [address] [place] [address] Consulting PhysicianHematology and Oncology09/06/24 Francheska Hayden, RN Patient Care NavigatorHematology and Oncology09/06/24Team MemberRelationship SpecialtyStart DateEnd Date Monroe Whitaker DO [address] [place], [place] [id number] PCP - GeneralInternal Medicine07/07/24 Migel Polanco MD [address] [place] [address] [place] [address] Referring PhysicianDermatology2 [place] [address] [place] [address] Consulting PhysicianHematology and Oncology09/06/24 Francheska Hayden, RN Patient Care NavigatorHematology and Oncology09/06/24Team MemberRelationship SpecialtyStart DateEnd Date Monroe Whitaker DO [address] [place] [address] PCP - GeneralInternal Medicine07/07/24 Migel oPlanco MD [address] [place] [address] [place] [address] Referring PhysicianDermatology2 [place] [address] [place] [address] Consulting PhysicianHematology and Oncology09/06/24 Francheska Hayden, RN Patient Care NavigatorHematology and Oncology09/06/24Team MemberRelationship SpecialtyStart DateEnd Date Monroe Whitaker DO [facility] [place] [address] PCP - GeneralInternal Medicine07/07/24 Migel Polanco MD [address] [facility] [address] [place] [address] Referring PhysicianDermatolog07/07/24 [place] [address] [place] [address] Consulting PhysicianHematology and Oncology09/06/24 Francheska Hayden RN Patient Care NavigatorHematology and Oncology09/06/24Team MemberRelationship SpecialtyStart DateEnd Date Monroe Whitaker DO [facility] [place], [place] [id number] PCP - GeneralInternal Medicine07/07/24 Migel Polanco MD [address] [facility] [address] [place] [address] Referring PhysicianDermatology2/ [place] [address] [place] [id number] Consulting PhysicianHematology and Oncology09/06/24 Francheska Hayden RN Patient Care NavigatorHematology and Oncology09/06/24 Team Status: Inactive Member Role Status Dates Monroe Whitaker JR DO Primary Care Provider Active Start: January 16, 2025 End: January 16Crispin Orta ProviderActiveStart: January 16, 2025 End: January 16, 2025Team MemberRelationshipSpecialtyStart DateEnd Date Monroe Whitaker Jr., DO [address] [place] [address] [id number] PCP - GeneralInternal Medicine02/14/25Team MemberRelationshipSpecialtyStart Date End Date Monroe Whitaker Jr., DO [address] [place] [address] [id number] PCP - GeneralInternal Medicine02/14/25Team MemberRelationshipSpecialtyStart Date End Date Monroe Whitaker MD [address] [place] [address] [id number] PCP - GeneralInternal Medicine06/09/23Team MemberRelationshipSpecialtyStart Date End Date Monroe Whitaker MD [address] [place] [address] [id number] PCP - GeneralInternal Medicine06/09/23Team MemberRelationshipSpecialtyStart Date End Date Monroe Whitaker Jr., DO [address] [place] [address] [id number] PCP - GeneralInternal Medicine02/14/25 Goals (unrecognized section and content) Goals may be documented in a n alternate sectionGoals may be documented in an alternate sectionGoals may be documented in an alternate sectionGoals may be documented in an alternate sectionNot on filedocumented as of this encounterNot on filedocumented as of this encounterNot on filedocumented as of this encounter INFORMATION SOURCE (unrecogn ized section and content) DATE CREATED AUTHOR 05/15/2022 [facility] DATE CREATED AUTHOR AUTHOR'S ORGANIZ ATION 01/07/2023 [facility] DATE CREATED AUTHOR AUTHOR'S ORGANIZ ATION 01/29/2023 [facility] DATE CREATED AUTHOR AUTHOR'S ORGANIZ ATION 06/14/2024 [facility] DATE CREATED AUTHOR AUTHOR'S ORGANIZ ATION 07/19/2024 [facility] DATE CREATED AUTHOR AUTHOR'S ORGANIZ ATION 11/04/2024 [facility] DATE CREATED AUTHOR AUTHOR'S ORGANIZ ATION 11/21/2024 [facility] DATE CREATED AUTHOR AUTHOR'S ORGANIZ ATION 12/15/[address] [facility] DATE CREATED AUTHOR AUTHOR'S ORGANIZ ATION 02/16/2025 [facility] DATE CREATED AUTHOR AUTHOR'S ORGANIZ ATION 03/27/2025 [facility] Reason for Visit (unrecogniz ed section and content) ReasonCommentsWell Women VisitReasonCommentsNew Patient VisitReasonCommentsNew Patient VisitSpecialtyDiagnoses / ProceduresReferred By ContactReferred To ContactHematology and Oncology Diagnoses Melanoma of back (Multi) [place] [address] [place] [address] Phone: tel: fax: [place] [address] [place] [address] Phone: tel: fax: Referral IDStatusReasonStart DateExpiration DateVisits RequestedVisits [id number] Specialty Services Required [id number]-xy Thoracic SurgeryReasonCommentsAltered Mental StatusSpecialtyDiagnoses / ProceduresReferred By ContactReferred To Contact Diagnoses Shunt malfunction [facility] - Emergency Department [address] [place] [address] Phone: tel: fax: Referral IDStatusReasonStart DateExpiration DateVisits RequestedVisits [id number] / Staple RemovalReasonComments Follow-upPOST OP SHUNT REVISION Scheduled Active and Recently Administ ered Medications (unrecognized section and content) Medication Order/ ceFAZolin (Ancef) 2 g in dextrose (iso) [...] that apply): Surgical Prophylaxis, Indications: Surgical Prophylaxis * 0928 (Given - Provider: Aiden Larios MD) oxygen (O2) therapy inhalation, Continuous - , First dose on Wed08/07/24 at 1145, Recovery (only), Discontinue when criteria met, Device: Nasal Cannula, Rate in liters per minute: 2 LPM, Keep O2 Sat Above: 92% * 1145 (Due) Medication Order/16/ lactated Ringer's infusion 50 mL/hr, intravenous, Continuous, Starting on Wed08/07/24 at 0615, For 1 day * 0900 (New Bag - Provider: Aiden Larios MD) * 1100 (Paused - Provider: Aiden Larios MD - Comment: Switch to gravity) * 1101 (Restarted - Provider: Aiden Larios MD) * 1313 (Stopped - Provider: Candy Cervantes RN) lactated Ringer's infusion 100 mL/hr, intravenous, Continuous, Starting on Wed08/07/24 at 1145, For 1 day, Recovery (only) * 1145 (Due) Medication Order// BUPivacaine HCl (Marcaine) 0.5 % (5 mg/mL) 30 mL, lidocaine (Xylocaine) 30 mL syringe (CANCELED) As needed, Starting on Wed08/07/24 at 0939, Intraprocedure * 0939 (Given - Provider: Yanet Pacheco MD - Comment: 20ML AT [...] pain scores based on patient preference? Yes * 1138 (Given - Provider: Elaina Okeefe RN) * 1145 (Given - Provider: Elaina Okeefe RN) HYDROmorphone [...] pain scores based on patient preference? Yes * 1241 (Given - Provider: Candy Cervantes RN) promethazine (Phenergan) 6.25 mg in sodium chloride 0.9% 50 mL IV 6.25 mg, intravenous, Administer over 15 Minutes, Once as needed, Nausea/vomiting, second line, Starting on Wed08/07/24 at 1233, For 1 dose, Phase II/On Unit sodium chloride 0.9 % irrigation solution (CANCELED) As needed, Starting on Wed08/07/24 at 1107, Intraprocedure * 1107 (Given - Provider: Yanet Pacheco MD) Medication Order11/19///05/2024 acetaminophen (Tylenol) tablet 650 mg 650 mg, oral, Every 6 hours, First dose on Wed11/20/24 at 204, If ordered PRN for pain, nurse is permitted to administer this medication for higher pain scores based on patient preference? Yes * 2143 (Given - Provider: Zoey Lozano RN) * 0306 (Given - Provider: Zoey Lozano RN) * 0849 (Given - Provider: Yue Toledo RN) * 1445 (Due) * 2044 (Due) ceFAZolin (Ancef) 2 g in dextrose [...] manifestations of infection)? No, Indications: Surgical Prophylaxis * 1455 (New Bag - Provider: Melissa Barber RN) * 1535 (Stopped - Provider: Yue Alvarado RN) * 2350 (New Bag - Provider: Zoey Lozano RN) * 0020 (Stopped - Provider: Zoey Lozano RN) cholecalciferol (Vitamin D-3) tablet 25 mcg 25 mcg, oral, Daily, First dose on Wed11/20/24 at 1130, Phase II/On Unit * 1212 (Given - Provider: Melissa Barber RN) * 0849 (Given - Provider: Yue Toledo RN) docusate sodium (Colace) capsule 100 mg 100 mg, oral, 2 times daily, First dose on Wed11/20/24 at 1130, Phase II/On Unit, Bowel Regimen - for prevention of constipation * 1212 (Given - Provider: Melissa Barber RN) * 2144 (Given - Provider: Zoey Lozano RN) * 0923 (Not Given - Provider: Yue Toledo RN - Reason: Patient/family refused) * 2100 (Due) DULoxetine (Cymbalta) DR capsule 60 mg 60 mg, oral, Daily, First dose on Wed11/20/24 at 1130, Phase II/On Unit, Do not crush or chew. * 1212 (Given - Provider: Melissa Barber RN) * 0848 (Given - Provider: Yue Toledo RN) estradiol (Estrace) tablet 1 mg 1 mg, oral, 2 times daily, First dose on Wed11/20/24 at 1130, Phase II/On Unit * 1212 (Given - Provider: Melissa Barber RN) * 2143 (Given - Provider: Zoey Lozano RN) * 0849 (Given - Provider: Yue Toledo RN) * 2100 (Due) famciclovir (Famvir) tablet 500 mg 500 mg, oral, Daily, First dose on Wed11/20/24 at 1130, Phase II/On Unit, Coverage: Herpes simplex,Infection Site: Prophylaxis * 1455 (Given - Provider: Melissa Barber RN) * 0849 (Given - Provider: Yue Toledo RN) famotidine (Pepcid) tablet 40 mg 40 mg, oral, Daily, First dose on Wed11/20/24 at 1130, Phase II/On Unit * 1212 (Given - Provider: Melissa Barber RN) * 0849 (Given - Provider: Yue Toledo RN) gabapentin (Neurontin) capsule 300 mg 300 mg, oral, Every 8 hours scheduled, First dose on Wed11/20/24 at 2200, Capsules may be opened and sprinkled on food (eg, applesauce, orange juice, pudding * 2144 (Given - Provider: Zoey Lozano RN) * 0600 (Given - Provider: Zoey Lozano RN) * 1400 (Due) * 2200 (Due) heparin (porcine) injection 5,000 Units (COMPLETED) 5,000 Units, subcutaneous, Once, On Wed11/20/24 at 0615, For 1 dose, Preprocedure, Given in preop, Indications: deep vein thrombosis prevention * 0627 (Given - Provider: Leisa Hartley RN) heparin (porcine) injection 5,000 Units 5,000 Units, subcutaneous, Every 8 hours, First dose on Wed11/20/24 at 2100, Phase II/On Unit * 2143 (Given - Provider: Zoey Lozano RN) * 0600 (Given - Provider: Zoey Lozano RN) * 1300 (Due) * 2100 (Due) lidocaine 4 % patch 1 patch 1 patch, transdermal, Administer over 12 Hours, Daily, First dose on Wed11/20/24 at 2045, Apply to left chest wall. Patch will remain on for 12 hours, then removed for [address] patch directly over any surgical incisions or wounds. * 214 (Medication Applied - Provider: Zoey Lozano RN) * 0851 (Medication Applied - Provider: Yue Toledo RN - Comment: left flank) * 2050 (Due: Medication Removed - Provider: Yue Toledo RN) linaCLOtide (Linzess) capsule 72 mcg 72 mcg, oral, Daily before breakfast, First dose on Wed11/21/24 at 0600, Phase II/On Unit, Do not break or crush capsule. If difficulty swallowing, may sprinkle capsule contents in 30 mL water or 5 mLapplesauce if swallowed without chewing. Use immediately after mixing. * 0600 (Not Given - Provider: Yue Toledo RN - Reason: Patient/family refused - Comment: wants to take at home later today) magnesium oxide (Mag-Ox) 400 mg (241.3 mg elemental) tablet 1 tablet 1 tablet (400 mg of magnesium oxide), oral, Daily, First dose on Wed11/20/24 at 1130, Phase II/On Unit * 1212 (Given - Provider: Melissa Barber RN) * 0848 (Given - Provider: Yue Toledo RN) methocarbamol (Robaxin) tablet 500 mg (CANCELED) 500 mg, oral, Every 6 hours scheduled, First dose on Wed11/20/24 at 2045 * 2143 (Given - Provider: Zoey Lozano RN) * 0306 (Given - Provider: Zoey Lozano RN) montelukast (Singulair) tablet 10 mg 10 mg, oral, Nightly, First dose on Wed11/20/24 at 2100, Phase II/On Unit * 214 (Given - Provider: Zoey Lozano RN) * 2100 (Due) pantoprazole (ProtoNix) EC tablet 40 mg (CANCELED) 40 mg, oral, Daily before breakfast, First dose on Wed11/21/24 at 0600, Phase II/On Unit, Do not crush, chew, or split. * 0600 (Given - Provider: Zoey Lozano RN) polyethylene glycol (Glycolax, Miralax) packet 17 g 17 g, oral, Daily, First dose on Wed11/20/24 at 1130, Phase II/On Unit, Bowel Regimen - for prevention of constipation. * 1225 (Not Given - Provider: Melissa Barber RN - Reason: Patient/family refused) * 0923 (Not Given - Provider: Yue Toledo RN - Reason: Patient/family refused) rosuvastatin (Crestor) tablet 5 mg 5 mg, oral, Daily, First dose on Wed11/20/24 at 2100, Phase II/On Unit * 214 (Given - Provider: Zoey Lozano RN) * 2099 (Due) vitamin E capsule 180 mg 180 mg, oral, Daily, First dose on Wed11/20/24 at 1130, Phase II/On Unit * 1212 (Given - Provider: Melissa Barber RN) * 0849 (Given - Provider: Yue Toledo RN) Medication Order11/19////05/2024 lactated Ringer's infusion (CANCELED) 50 mL/hr, intravenous, Continuous, Starting on Wed11/20/24 at 0615, For 1 day * 0628 (New Bag - Provider: Leisa Hartley RN) * 0732 (Continued by Anesthesia - Provider: Rogelio H Eitenne, COLLECTIONS CURATOR-APPLICATIONS ENGINEER MANUFACTURING) * 1101 (Stopped - Provider: Melissa Barber RN - Comment: [Order ends at this time. Document the following action when infusion is complete: Stopped]) sodium chloride 0.9% infusion () 100 mL/hr, intravenous, Continuous, Starting on Wed11/20/24 at 1130, For 5 hours, Phase II/On Unit,DC once tolerating oral intake * 1100 (Rate/Dose Verify - Provider: Melissa Barber RN) * 1211 (New Bag - Provider: Melissa Barber RN) * 1459 (Stopped - Provider: Melissa Barber RN - Comment: [Order ends at this time. Document the following action when infusion is complete: Stopped]) Medication Order11/19////05/2024 acetaminophen (Tylenol) tablet 650 mg 650 mg, [...] needed, Starting on Wed11/20/24 at 0857, Intraprocedure * 0857 (Given - Provider: Harsha Ojeda MD) diphenhydrAMINE (BENADryl) injection 25 mg 25 mg, intravenous, Every 6 hours PRN, itching, Starting on Wed11/20/24 at 1100, Phase II/On Unit * 1225 (Given - Provider: Melissa Barber RN) * 2357 (Given - Provider: Zoey Lozano RN) fentaNYL PF (Sublimaze) injection 25 mcg (CANCELED) 25 mcg, intravenous, Every 5 min PRN, pain moderate (4-6), first line, Starting on Wed11/20/24 at 0920, Recovery (only), Max total of 200 micrograms regardless of dose., If ordered PRN for pain, nurse is permitted to administer this medication for higher pain scores based on patient preference? Yes * 1008 (Given - Provider: Mikala Okeefe RN) * 1013 (Given - Provider: Mikala Okeefe RN) * 1019 (Given - Provider: Mikala Okeefe RN) * 1024 (Given - Provider: Mikala Okeefe RN) HYDROmorphone (Dilaudid) injection 0.5 mg (CANCELED) 0.5 mg, intravenous, Every 5 min PRN, pain severe (7-10), first line, Starting on Wed11/20/24 at 0920, Recovery (only), Max total of 4 mg regardless of dose. * 0939 (Given - Provider: Mikala Okeefe RN) * 0944 (Given - Provider: Mikala Okeefe RN) * 0956 (Given - Provider: Mikala Okeefe RN) * 1027 (Given - Provider: Mikala Okeefe RN) HYDROmorphone (Dilaudid) injection 0.5 mg 0.5 mg, intravenous, Every 2 hour PRN, pain severe (7-10), second line, pain breakthrough, Startingon Wed11/20/24 at 1100, Phase II/On Unit * 2144 (Given - Provider: Zoey Lozano RN) * 0306 (Given - Provider: Zoey Lozano RN) [...] IV push. Repeat as ordered until patient's re spiratory rate is greater than 12 breaths/minute. ondansetron (Zofran) injection 4 mg(Linked Group 1) 4 mg, intravenous, Every 6 hours PRN, nausea/vomiting, first line, Starting on Wed11/20/24 at 1100,Phase II/On Unit, Administer IV if patient unable [...] is permitted to administer this medication for higherpain scores based on patient preference? Yes * 1129 (Given - Provider: Melissa Barber RN) * 1824 (Given - Provider: Melissa Barber RN) * 4128 (Given - Provider: Zoey Lozano RN) oxyCODONE (Roxicodone) immediate release tablet 5 mg 5 mg, oral, Every 4 hours PRN, pain moderate (4-6), first line, Starting on Wed11/20/24 at 1100, Phase II/On Unit, If ordered PRN for pain, nurse is permitted to administer this medication for higherpain scores based on patient preference? Yes * 0604 (Given - Provider: Yue Toledo RN) oxygen (O2) therapy inhalation, Continuous PRN - O2/gases, other, Starting on Wed11/20/24 at 1100, Phase II/On Unit, Wean oxygen as tolerated, discontinue when room air pulse oximetry measures greater than 90%., Device:Nasal Cannula, Rate in liters per minute: 2 LPM, Keep O2 Sat Above: 90% * 1100 (Rate Change Medical Gas - Provider: Melissa Barber, CARLOS) sodium chloride 0.9 % irrigation solution (CANCELED) As needed, Starting on Wed11/20/24 at 0817, Intraprocedure * 0817 (Given - Provider: Harsha Ojeda MD) Order Group 1: ondansetron ODT (Zofran-ODT) disintegrating [...] nausea/vomiting, first line, Starting on Wed11/20/24 at 1100,Phase II/On Unit, Administer IV if patient unable to take oral tablet. When administering via IV Push, administer over 3-5 minutes. Medication Order// acetaminophen (TYLENOL EXTRA STRENGTH) tablet 1,000 mg 1,000 mg, oral, Once, On Wed02/13/25 at 1131, For 1 dose * 1131 (Not Given - Provider: Barry Chaidez RN - Reason: Contraindicated - Comment: pt denies pain) * 1305 (MAR Hold - Provider: User Epic - Reason: Patient not available) * 1820 (MAR Unhold - Provider: User Epic) ceFAZolin (ANCEF) 2,000 mg in sodium chloride 0.9 % 50 mL IVPB W/ADAPTER (COMPLETED) 2,000 mg, intravenous, at 100 mL/hr, Administer over 30 Minutes, Every 8 hours, First dose on Wed02/13/25 at 2330, For 2 doses, Pharmacy to adjust per renal function; Start 8 hours after pre-op dose for total of 3 doses including pre-op dose. Infuse all doses within 24 hours of initial dose. For patient less than 120 kg. For Vial-2-Bag: Attach bag and vial to adapter - Use immediately after activating; dissolve drug prior to administration., Indication: Surgical prophylaxis * 2321 (New Bag - Provider: Karthik Velazquez RN) * 2351 (Stop Bag - Provider: Karthik Velazquez RN) * 0731 (New Bag - Provider: Alyssa Marshall RN) * 0801 (Stop Bag - Provider: Alyssa Marshall RN) ondansetron (PF) (ZOFRAN) injection 4 mg (COMPLETED) 4 mg, intravenous, Once, On Wed02/13/25 at 1430, For 1 dose, Pre-op, Intravenous administration preferred to be given over 2-5 minutes. * 1436 (Given - Provider: Luann Ferguson RN) pantoprazole (PROTONIX) EC tablet 40 mg 40 mg, oral, Every morning before breakfast, First dose on Wed02/14/25 at 0945, Look-alike/sound-alike medication - verify indication for use. If patient is receiving enteral feeding, consider alternative PPI or continue IV pantoprazole until the delayed-release tablet can be taken orally, Indication: GERD * 1223 (Given - Provider: Alyssa Marshall RN) polyethylene glycol (GLYCOLAX) packet 17 g 17 g, oral, Daily, First dose on Wed02/13/25 at 1830, PACU & Post-op, Look-alike/sound-alike medication - verify indication for use. Dissolve 1 packet (17 gm) in 8 ounces of water, juice, soda, coffee or tea. * 1830 (Not Given - Provider: Karthik Velazquez RN - Reason: Patient/family refused) * 0831 (Not Given - Provider: Alyssa Marshall RN - Reason: Patient/family refused) sennosides-docusate sodium (SENOKOT-S) 8.6-50 mg 1 tablet 1 tablet, oral, 2 times daily, First dose on Wed02/14/25 at 0900, Start Post-Op Day 1: Hold for diarrhea * 0733 (Given - Provider: Alyssa Marshall RN) * 0900 (Canceled Entry - Provider: Alyssa Marshall RN) sodium chloride 0.9 % flush 3 mL 3 mL, intravenous, Every 12 hours scheduled, First dose on Wed02/13/25 at 2100, Once tolerating oral intake * 2100 (Given - Provider: Karthik Velazquez, RN) * 0900 (Given - Provider: Alyssa Marshall, CARLOS) Medication Order/ lactated ringers infusion (CANCELED) 50 mL/hr, intravenous, Continuous, Starting on Wed02/13/25 at 1400, Pre-op, If fluid restriction isnot indicated, infuse at a rate up to 5 mL/kg/hr not to exceed the total replacement volume (2 ml/kg/hr) from the time NPO status was initiated. * 1430 (New Bag - Provider: Luann Ferguson RN) * 1510 (Continued by Anesthesia - Provider: Jose G Miller APRN-[employer]) * 1707 (Stop Bag - Provider: Karthik Velazquez RN - Comment: [Order ends at this time. Document the following action when infusion is complete: Stop Bag]) niCARdipine (CARDENE-IV) infusion 40 mg/200 mL in iso-osmotic sodium chloride (0.2 mg/mL premix) 2.5-15 mg/hr (12.5-75 mL/hr), intravenous, Continuous, Starting on Wed02/13/25 at 1730, PACU & Post-op, Notify prescriber if rate exceeds 15 mg/hour Administer through large peripheral vein or central line; Change the infusion site every 12 hours if administered via peripheral vein. Look-alike/sound-alike medication. Verify indication for use. Do not combine or run in the same line as other me dications., Monitoring Goals: SBP, Monitoring Goal Direction: Less than or Equal to, Please specify: 140, Starting Dose: 5 mg/hour, Titration Dose Range (range 2.5 to 5 mg/hour): 2.5 to 5 mg/hour, Titration Frequency - As Frequent As: 3 minutes * 1730 (Canceled Entry - Provider: Karthik Velazquez RN) Medication Order/ acetaminophen (TYLENOL) tablet 650 mg 650 mg, oral, Every 4 hours PRN, mild pain - pain scale 1-3, fever of 38.6, Starting on Wed02/13/25at 1821, Do not give for fever if patient received acetaminophen containing products within 4 hours. * 0733 (Given - Provider: Alyssa Marshall RN) bisacodyL (DULCOLAX) suppository 10 mg 10 mg, rectal, As needed, constipation, if no BM within 6 hours of administering Milk of Magnesia, Starting on Erica 02/15/25 at 0000, Start Post-Op Day 2 Look-alike/sound-alike medication - verify indication for use. dextrose (GLUTOSE) 40 % gel 15 g 15 g, oral, As needed, low blood sugar, blood glucose less than 70 mg/dL, Starting on e 02/13/25 at 1821, If patient conscious and taking PO. If blood glucose is not greater than 70 mg/dL after initial treatment, repeat treatment. dextrose 5 % (D5W) infusion 100 mL/hr, intravenous, Continuous PRN, blood glucose less than 70 mg/dL, Starting on 02/13/25 at 1821, For 365 days, Use immediately following dextrose 50% or glucagon treatment for patients who are unconscious or NPO. Contact prescriber for additional orders. If blood glucose is not greater than 70 mg/dL after initial treatment, repeat treatment. dextrose 50 % in water (D50W) 50% solution 25 mL 25 mL, intravenous, As needed, low blood sugar, blood glucose less than 70 mg/dL and unconscious orNPO with IV access, Starting on e 02/13/25 at 1821, Push over 1-3 minutes STAT. If conscious and not NPO, immediately follow with meal tray or high protein (7 grams) snack if tray not available. If NPO, initiate 5% dextrose in water at 100 mL/hr and contact prescriber for additional orders. If blood glucose is not greater than 70 mg/dL after initial treatment, repeat treatment. VESICANT (RED) Warning: HYPERTONIC solution. fentaNYL (SUBLIMAZE) injection 50 mcg (CANCELED) 50 mcg, intravenous, Every 5 min PRN, Pain Scale 6-10, Starting on e 02/13/25 at 1654, PACU (only), Up to a maximum dose of 150 mcg. Look-alike/sound-alike medication - verify indication for use. * 1726 (Given - Provider: Heidy Sosa RN) * 1801 (Given - Provider: Heidy Sosa RN) glucagon HCL injection 1 mg 1 mg, intramuscular, As needed, low blood sugar, blood glucose less than 70 mg/dL and unconscious or NPO without IV access., Starting on Wed02/13/25 at 1821, If conscious and not NPO, immediately follow with meal tray or high protein (7Grams) snack if tray not available. If NPO, initiate IV 5% Dextr ose/Water at 100 mL/hr and contact prescriber for additional orders. If blood glucose is not greater than 70 mg/dL after initial treatment, repeat treatment. HYDROcodone-acetaminophen (NORCO) 5-325 mg per tablet 1 tablet(Linked Group 1) 1 tablet, oral, Every 4 hours PRN, moderate pain - pain scale 4-6, Starting on Wed02/13/25 at 1655,Look-alike/sound-alike medication - verify indication for use. * 1727 (See Alternative - Provider: Heidy Sosa RN) * 2102 (See Alternative - Provider: Karthik Velazquez RN) * 0046 (See Alternative - Provider: Karthik Velazquez RN) * 1223 (Given - Provider: Alyssa Marshall, CARLOS) HYDROcodone-acetaminophen (NORCO) 5-325 mg per tablet 2 tablet(Linked Group 1) 2 tablet, oral, Every 4 hours PRN, severe pain - pain scale 7-10, Starting on Wed02/13/25 at 1655, Look-alike/sound-alike medication - verify indication for use. * 1727 (Given - Provider: Heidy Sosa RN) * 2102 (Given - Provider: Karthik Velazquez RN) * 0046 (Given - Provider: Karthik Velazquez, CARLOS) * 1223 (See Alternative - Provider: Alyssa Marshall, CARLOS) lidocaine-EPINEPHrine (PF) (XYLOCAINE W/EPI) 1 %-[id number] injection (CANCELED) As needed, Starting on Wed02/13/25 at 1605, Intra-op * 1605 (Given - Provider: Edward Islas MD) magnesium hydroxide (MILK OF MAGNESIA) suspension 30 mL 30 mL, oral, 2 times daily PRN, if no BM by post-op day 2, Starting on Wed02/15/25 at 0000, Start Post-Op Day 2: DO NOT use in Renal/Dialysis patients Shake well. ondansetron (PF) (ZOFRAN) injection 4 mg 4 mg, intravenous, Every 6 hours PRN, nausea, vomiting, Starting on Wed02/13/25 at 1821, Intravenous administration preferred to be given over 2-5 minutes. sodium chloride 0.9 % flush 3 mL 3 mL, intravenous, As needed, line care, before and after each intermittent use, Starting on Wed02/13/25 at 1821, Once tolerating oral intake sodium chloride 0.9% (NS) irrigation bottle (CANCELED) As needed, Starting on Wed02/13/25 at 1605, Intra-op * 1605 (Given - Provider: Edward Islas MD - Comment: GIVEN TO STERILE BACK TABLE FOR PRN USE) Order Group 1: HYDROcodone-acetaminophen (NORCO) 5-325 mg per tablet 1 tabletJump to med 1 tablet, oral, Every 4 hours PRN, moderate pain - pain scale 4-6, Starting on Wed02/13/25 at 1655,Look-alike/sound-alike medication - verify indication for use. Or HYDROcodone-acetaminophen (NORCO) 5-325 mg per tablet 2 tabletJump to med 2 tablet, oral, Every 4 hours PRN, severe pain - pain scale 7-10, Starting on Wed02/13/25 at 1655, Look-alike/sound-alike medication - verify indication for use. FOR RECORDS PERTAINING TO PATIENTS WHO ARE [...] BE BASED ON THE PRIMARY CLINICAL RECORDS. [facility]. provides no warranty or guarantee of the accuracy or completeness of information in this document.
[2025-05-05] MEDS: MORPHINE SULFATE 4 MG/ML VIAL IV (09:21)
== END 2025-05-05 09:58 | disposition home or self-care (01) ==
PROVIDERS: Emergency Provider Emergency Medicine; PCP Internal Medicine
DX: S52.501A Unspecified fracture of the lower end of right radius, initial encounter for closed fracture (principal); S52.601A Unspecified fracture of lower end of right ulna, initial encounter for closed fracture; W00.0XXA Fall on same level due to ice and snow, initial encounter
CPT/HCPCS: 25605; 73100; 73110; 99152; 99284; J2270